=== PATIENT | male | born 1955 | race Caucasian/White ===

== ENCOUNTER 2018-11-15 07:50 | Emergency (ER) | payer OTHER, SELFPAY ==
[2018-11-15 07:56] VITALS: BP 180/99; PULSE 78; RESP 12; TEMP 36.5; O2SAT 95
[2018-11-15 08:28] LABS: Abs Immature Grans 0.05 k/cumm (0.0-0.09); Absolute Basophil Count 0.03 k/cumm (0.0-0.2); Absolute Eosinophil Count 0.19 k/cumm (0.0-0.7); Absolute Lymphocyte Count 3.15 k/cumm (1.2-3.4); Absolute Monocyte Count 0.61 k/cumm (0.11-0.7); Absolute Neutrophil Count 3.75 k/cumm (1.2-6.7); Basophils % 0.4; Eosinophils % 2.4; HCT 46.6 % (40.0-50.0); Immature Grans % 0.6; Lymphocytes % 40.5; Mean Corp. HGB Concentration 34.3 g/dL (32.0-36.0); Mean Corpuscular Hemoglobin 31.3 pg (27.0-33.0); Mean Corpuscular Volume 91.2 fL (80-95); Mean Platelet Volume 10.5 fL (8.0-11.0); Monocytes % 7.8; Neutrophils % 48.3; Platelet Count 183 x1000/uL (130-400); RBC 5.11 m/cumm (4.50-6.00); RBC Distribution Width 14.6 % (11.8-14.1); White Blood Cell Count 7.78 k/cumm (4.4-10.8)
--- NOTE | 2018-11-15 08:38 | ED.GENADUL_ITS ---
Discharge Plan Disposition Patient Disposition: HOME Condition: Good Discharge Details Chief Complaint: GenMedical Clinical Impression: Pneumonia Primary Care Provider: None,None ED Provider: Rush Shearer Home Meds and New Rx's Prescriptions: New albuterol sulfate 90 mcg/actuation HFA aerosol inhaler 1 puff IH Q6H PRN (Reason: bronchospasm) Qty: 8 RF: 0 No Action aspirin [Aspirin Low Dose] 81 mg Tablet,Delayed Release (Dr/Ec) 81 mg PO DAILY RF: 0 simvastatin 40 mg Tablet 40 mg PO QPM RF: 0 divalproex 500 mg Tablet Extended Release 24 Hr 1,500 mg PO DAILY RF: 0 hydrochlorothiazide 25 mg Tablet 25 mg PO DAILY RF: 0 Prilosec OTC 20 mg Tablet,Delayed Release (Dr/Ec) 20 mg PO DAILY RF: 0 Multi-Day Plus Minerals 18 mg iron-400 mcg-25 mcg Tablet 1 tab PO DAILY RF: 0 Discharge Instructions Instructions: Pneumonia (ED) Additional Instructions: Please continue to take your antibiotic as directed. Please use the inhaler as needed for your shortness of breath. He will be contacted for scheduling for a stress test, please do not miss this appointment. Please follow-up with your primary care provider as soon as possible for reassessment. If you notice any worsening of your symptoms, or any new symptoms such as vomiting, diarrhea, fever, chills, shortness of breath, chest pain, numbness, weakness, or fainting , please return immediately to the emergency department for reevaluation. Please follow up with your primary care provider as soon as possible for reassessment and reevaluation. As always, it was a pleasure participating in your medical care today. Medical Decision Making This is a very pleasant 63-year-old male who presents for evaluation of shortness of breath over the last 1-2 months associated with a cough. He has had no associated chest pain, chest pressure numbness, or other concerning cardiac symptoms. The patient was seen at an urgent care yesterday where a chest x-ray was performed and per the radiology read conclusion: Findings may represent bibasilar bronchopneumonia, with bronchial wall thickening with surrounding airspace haziness in the lung bases visualized on the lateral view. He was started on doxycycline, and discharged home with PCP follow-up. EKG was performed there, and there were some T wave abnormalities. No signs of STEMI at that time. Because of this and due to an inability to closely follow-up with his PCP this week secondary to the holiday season the patient did come to the ER today to be evaluated for any cardiac problem. He denies any changes in his symptoms, but because of what was told to them yesterday he wanted to make sure things were fine. The patient has no red flags concerning for pulmonary embolism. His vital signs are very stable and reassuring. He did have improvement of his shortness of breath yesterday when he was given a breathing treatment, and his signs and symptoms appear to be clinically consistent with community-acquired pneumonia being appropriately treated with doxycycline. His symptoms appear clinically inconsistent with a cardiac etiology. Respecting the patient's concern we will get blood work to make sure the troponin is negative. I feel that this will most likely be the case. His EKG does show some T wave abnormalities, however upon review of the EKG performed at the urgent care there appears to be no changes. I do feel that the patient would benefit from an inhaler at home, and we will prescribe this. He we will recommend he continue the doxycycline, will encourage close follow-up with his PCP. Most recent stress test was greater than 5 years ago but within the last 10 years per the patient. We will set him up for an outpatient exercise stress test as well. EKG 8:02 Rate 73, sinus rhythm, intervals normal, nonspecific T wave abnormalities in V3 through V6. Q wave is present in lead III. Inverted T wave in aVL. Review of EKG from 11/14/18 demonstrates the same findings, with no acute changes. EKG appears stable and unchanged. No evidence of STEMI, ST elevations or depressions, or other acute abnormalities. 8:57 AM Patient's laboratory workup has returned, troponin is negative, no symptoms for greater than 1-2 months I do not feel that a repeat troponin is indicated especially in light of no change in his symptomatology and a clinical history inconsistent with a cardiac etiology. The remainder of the patient's laboratory workup is benign. Because of the patient's age and risk factors, I do think that it is reasonable for continued medical maintenance for an outpatient stress test. Because of the current holiday season we will set this up for the patient. I feel that the patient's symptoms are due secondary to a radiographically proven pneumonia, and are consistent with this. I will give him an inhaler for home use. I discussed red flags and low threshold for which to return. I have extensively reviewed the treatment plan and discharge instructions with the patient and their family. I have addressed all patient concerns at this time. The patient and family was made aware of what symptoms to monitor for that would warrant a return to the emergency department. Discussed the plan with the patient and family, they demonstrate verbal understanding and agreement with our assessment and plan at this time. HPI General Date/Time Provider Initiated Documentation: 11/15/18 08:17 . HPI Narrative: This is a 63-year-old male with a past medical history of diabetes hypertension high cholesterol and seizures diagnosed at the age of 41 for which he takes Depakote. He presents today for evaluation of some mild shortness of breath. Patient states that over the last 1-2 months he has had a cough with very mild shortness of breath only with exertion. He denies any associated chest pain, arm, neck, or shoulder pain. He denies any chest pressure or chest heaviness. He did have a productive cough when the symptoms started over a month ago, however the productive component has resolved and he now has what he describes as a deep, regular, nonproductive cough. He denies any systemic symptoms of fever or chills. He does admit to some mild fatigue. The patient was given an inhaler treatment yesterday and did state that this notably improved his shortness of breath. The patient did go to [facility] yesterday, where he was evaluated at an urgent care. Chest x-ray was performed and findings were consistent with bronchopulmonary pneumonia. The patient presents today out of concern for these EKG abnormalities, wanted to make sure his heart was fine. He denies any new symptoms of chest pain, worsening shortness of breath, arm neck or shoulder pain. He denies any exertional chest discomfort. Denies PE risk factors such as recent long car rides, immobilization, recent surgery, prior history of DVT or PE, family history of PE or DVT, morbid obesity, exogenous estrogen and smoking, hemoptysis, history of cancer. He denies any tearing sensation in his chest. He states that because of the holiday season he wanted to be able to get checked out quickly because he knew he would not be able to get into see his family doctor quickly. Patient denies any other complaints at this time. Past surgical history is positive for left shoulder surgery and cholecystectomy. He denies any tobacco use, IV or illicit drug use. He is adopted, but denies any pertinent family Related Data Home Medications Medication Instructions Recorded Confirmed albuterol sulfate 1 puff IH Q6H PRN #8 gm 11/15/18 aspirin [Aspirin Low Dose] 81 mg PO DAILY 11/15/18 11/15/18 divalproex 1,500 mg PO DAILY 11/15/18 11/15/18 hydrochlorothiazide 25 mg PO DAILY 11/15/18 11/15/18 zesivmhgelav-yyi-naqa-FA-vit K 1 tab PO DAILY 11/15/18 11/15/18 [Multi-Day Plus Minerals] omeprazole magnesium [Prilosec OTC] 20 mg PO DAILY 11/15/18 11/15/18 simvastatin 40 mg PO QPM 11/15/18 11/15/18 Previous Rx's Medication Instructions Recorded albuterol sulfate 1 puff IH Q6H PRN #8 gm 11/15/18 Allergies Allergy/AdvReac Type Severity Reaction Status Date / Time carbamazepine [From Tegretol] Allergy Unverified 11/15/18 08:46 General Stated Complaint: GenMedical JOANNA: 4 Review of Systems Review of Systems All systems reviewed & are unremarkable except as noted in HPI and below PFSH Social History Smoking/Tobacco Use Status: Never Exam Narrative Exam Narrative: 1.Const: Well-nourished, Well-developed, appearing stated age 2.Eyes: PERRL, no conjunctival injection, and symmetrical lids. 3.ENT: Atraumatic external nose and ears. Moist MM. Neck: Symmetric, trachea midline, No thyromegaly. 4.CVS: +S1/S2, No murmurs or gallops. Peripheral pulses 2+ and equal in all extremities. Brisk capillary refill in all extremities. Radial pulses are equal and symmetric bilaterally. 5.RESP: Unlabored respiratory effort. Clear to auscultation bilaterally. No wheezes rales or rhonchi, no reproducible chest wall tenderness 6.GI: Soft, Nontender/Nondistended, No hepatosplenomegaly. No guarding or rebound. 7.MSK: Normocephalic/Atraumatic, Extremities w/o deformity or ttp No cyanosis or clubbing, Normal movement of all extremities 8.Skin: Warm, Dry. No rashes or lesions. 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 Sensation grossly intact, no focal neurologic deficits. 10.Psych: (AAO) x3. Appropriate mood and affect Course Vital Signs Temperature 36.5 C 11/15/18 07:56 Pulse 78 11/15/18 07:56 Respiratory Rate 12 11/15/18 07:56 Blood Pressure 180/99 H 11/15/18 07:56 Pulse Oximetry 95 11/15/18 07:56 Temperature 36.5 C 11/15/18 07:56 Temperature Source Temporal Artery Scan 11/15/18 07:56 Pulse 78 11/15/18 07:56 Respiratory Rate 12 11/15/18 07:56 Respiratory Effort Non-Labored 11/15/18 08:07 Blood Pressure 180/99 H 11/15/18 07:56 Blood Pressure Position Sitting 11/15/18 07:56 Pulse Oximetry 95 11/15/18 07:56 Oxygen Delivery Method Room Air 11/15/18 07:56 Oxygen Flow Rate 0 11/15/18 07:56 Pain Level 0 11/15/18 07:56
[2018-11-15 08:44] LABS: ALT 32 U/L (12-78); AST 16 U/L (15-37); Albumin 3.6 g/dL (3.4-5.0); Alkaline Phosphatase 61 U/L (46-116); Anion Gap 9.1 mmol/L (3-11); BUN 19 mg/dL (7-18); Bilirubin, Total 0.5 mg/dL (0.2-1.0); CO2 28.9 mmol/L (21.0-32.0); CREATININE 0.92 mg/dL (0.70-1.30); Chloride 103 mmol/L (98-107); Glucose 130 mg/dL (70-100); Potassium 3.7 mmol/L (3.5-5.1); Sodium 141 mmol/L (136-145); Total Protein 7.3 g/dL (6.4-8.2)
[2018-11-15 08:46] VITALS: RESP 16
[2018-11-15 08:55] LABS: Calcium 9.2 mg/dL (8.5-10.1); Troponin I < 0.02 ng/mL (0.00-0.06)
[2018-11-15 09:21] VITALS: BP 140/92; PULSE 68; RESP 14; O2SAT 94
== END 2018-11-15 09:20 | disposition home or self-care (01) ==
PROVIDERS: Emergency Provider Student in an Organized Health Care Education/Training Program
DX: J18.9 Pneumonia, unspecified organism (principal); E11.9 Type 2 diabetes mellitus without complications; I10 Essential (primary) hypertension
CPT/HCPCS: 36415; 80053; 93005; 99284; 84484; 85025; 93010; 99285

== ENCOUNTER → 2018-11-26 00:06 | Outpatient (CLI) | payer OTHER, SELFPAY ==
--- NOTE | 2018-11-26 08:30 | ETT_ITS ---
*[facility]* *[facility]* [address] [place] [address] Stress Electrocardiography Scotty protocol Date of study: 11/26/2018 *PATIENT PRESENTATION* Height: 175.3cm (69in) Blood Pressure: Weight: 118.2kg (260lb) BSA: 2.45m^2 Referring physician: Rush Shearer Ordering physician: Rush Shearer Impressions: Negative stress test after maximal exercise. Summary: 1. Stress ECG conclusions: The stress ECG is negative. Calderon treadmill score: 9. This score predicts a low risk of cardiac events. 2. Stress: The target heart rate was achieved. The heart rate response to stress is normal. There is resting hypertension with an appropriate response to stress. The patient experienced no chest pain during stress. Exercise capacity is good (10 METS). 3. Baseline ECG: Nonspecific ST changes. Indication: R06.02, Appropriate Use Criteria: A (Appropriate). History: REASON FOR VISIT: PT WAS SEEN IN THE ED ON 11/15/18 AND DIAGNOSED WITH PNEUMONIA. EKG DONE AT THIS VISIT SHOWED DIFFUSE NONSPECIFIC T-ABNORMALITY. INVERTED T-WAVES NOTED IN LEAD V4, V5 & V6. PT DENIES ANY ISSUES WITH CHEST PAIN OR PRESSURE. HE REPORTS SHORTNESS OF BREATH RELATED TO RECENT PNEUMONIA. Risk factors: PT IS ADOPTED AND UNAWARE OF ANY FAMILY MEDICAL HISTORY. PT HAS NO CHOLESTEROL RESULTS ON FILE. Hypertension. Diabetes mellitus. Obesity. Dyslipidemia. ALLERGIES: CARBAMAZEPINE. MEDICATIONS: SIMVASTATIN 40 MG Q PM. OMEPRAZOLE 20 MG DAILY. MULTIVITAMIN W/ MINERALS 1 TAB DAILY. HYDROCHLOROTHIAZIDE 25 MG DAILY. DIVALPROEX 1500 MG DAILY. ASPIRIN 81 MG DAILY. ALBUTEROL SULFATE 1 PUFF Q 6HRS PRN. ALLERGIES: MEDICATIONS: ALBUTEROL SULFATE 1 INH Q 6 HRS PRN. ASPIRIN 81 MG DAILY. DIVALPROEX 1.500 MG DAILY. HYDROCHLORTHIAZIDE 25 MG DAILY. MULTI-DAY PLUS MINERALS 1 TAB DAILY. PROLESEC OTC 20 MG DAILY. SIMVASTATIN 40 MG DAILY. Protocol: Scotty protocol. Baseline ECG: SINUS RHYTHM. HR 67 BPM. FLATTENED T-WAVES IN LEADS V4, V5 & V6. Nonspecific ST changes. Stress protocol: + +---+ + + !Stage !HR !BP (mmHg) !Symptoms ! + +---+ + + !Baseline supine !67 !162/98 (119)! ! + +---+ + + !Baseline standing !77 !160/96 (117)! ! + +---+ + + !Stage I; 1.7mph, !103!168/98 (121)! ! !10degrees; 3 min ! ! ! ! + +---+ + + !Stage II; 2.5mph, !121!180/104 ! ! !12degrees; 3 min ! !(129) ! ! + +---+ + + !Stage III; 3.4mph, !133!182/110 ! ! !14degrees; 3 min ! !(134) ! ! + +---+ + + !Immediate post stress !---! !7 out of 10 chest ! ! ! ! !discomfort ! + +---+ + + !Recovery; 1 min !133!196/98 (131)!Subsiding ! + +---+ + + !Recovery; 3 min !---! !2 out of 10 chest ! ! ! ! !discomfort ! + +---+ + + !Recovery; 6 min !96 !188/104 !Resolved ! ! ! !(132) ! ! + +---+ + + !Recovery; 9 min !91 !168/104 ! ! ! ! !(125) ! ! + +---+ + + !Recovery; 12 min !90 !160/96 (117)! ! + +---+ + + * Stress results: Maximal heart rate during stress was 138bpm (87% of maximal predicted heart rate). The maximal predicted heart rate was 158bpm. The target heart rate was achieved. The heart rate response to stress is normal. There is resting hypertension with an appropriate response to stress. The rate-pressure product for the peak heart rate and blood pressure was 58280ta Hg/min. The patient experienced no chest pain during stress. Exercise capacity is good (10 METS). Stress ECG: TREADMILL PORTION OF STRESS TEST ENDED IN 9 MINUTES & 1 SECOND BECAUSE OF FATIGUE HYPERTENSIVE BLOOD PRESSURE AT BASELINE PRIOR TO START OF TEST. NORMAL HEART RATE AND BLOOD PRESSURE RESPONSE TO EXERCISE MAX HR = 138 % OF TARGET = 87 OCCASIONAL PVCs APPROXIMATE METS ACHIEVED = 10.16 7 TO 8 OUT OF 10 BRIEF SHARP EPISODE OF SUDDEN CHEST PAIN UPON IMMEDIATE RECOVERY LASTING ONLY FEW SECONDS. 2 TO 3 OUT OF 10 CHEST ACHE WITH SOME BELCHING DURING RECOVERY PERIOD SUBSIDED BY 5 MINUTES RECOVERY. NO SIGNIFICAN ST SEGMENT CHANGES FUNCTIONAL CAPACITY FOR EXERCISE. The stress ECG is negative. Calderon treadmill score: 9. This score predicts a low risk of cardiac events. Study data: Kyle Kiran MD supervised and was readily available during the procedure. This study was interpreted by [facility]. Study status: Routine. Consent: The risks, benefits, and alternatives to the procedure were explained to the patient and informed consent was obtained. Procedure: Initial setup. A baseline ECG was recorded. Surface ECG leads and manual cuff blood pressure measurements were monitored. Heart sounds: Normal. Lung sounds: Normal. Treadmill exercise testing was performed using the Scotty protocol. Study completion: The patient tolerated the procedure well and was discharged from the lab. Discharge: The patient left the laboratory in stable condition. Birthdate: Patient birthdate: 1955. Sex: Gender: male. Study date: Study date: 11/26/2018. Study time: 08:30 AM. Signature Documentation: The Stress ECG portion of this study was interpreted by Kyle Kiran MD. Electronically signed by Kyle Kiran 11/26/2018 10:30
== END ==
PROVIDERS: Visit Provider Student in an Organized Health Care Education/Training Program
DX: R06.02 Shortness of breath (principal); R94.31 Abnormal electrocardiogram [ECG] [EKG]; I10 Essential (primary) hypertension; E11.9 Type 2 diabetes mellitus without complications; E78.5 Hyperlipidemia, unspecified; E66.9 Obesity, unspecified
CPT/HCPCS: 93017

== ENCOUNTER 2018-11-29 12:57 | Emergency (ER) | payer OTHER, SELFPAY ==
[2018-11-29 13:02] VITALS: PULSE 84; RESP 12; TEMP 36.3; O2SAT 96
--- NOTE | 2018-11-29 13:29 | DI.RAD_ITS ---
SYMPTOM/DIAGNOSIS: COUGH, CRACKLES RT LUNG LIVE, ? PNEUMONIA PA AND LATERAL CHEST: No priors. Heart size and pulmonary vasculature are within normal limits. The lungs are clear. No effusions or pneumothoraces are identified. Note is made of a left shoulder prosthesis. IMPRESSION: No acute pulmonary process.
--- NOTE | 2018-11-29 13:46 | ED.GENADUL_ITS ---
Discharge Plan Disposition Patient Disposition: HOME Condition: Good Discharge Details Chief Complaint: RespSymp Clinical Impression: Pneumonia Primary Care Provider: Unknown,Unknown ED Provider: Rush Shearer Home Meds and New Rx's Prescriptions: New levofloxacin 750 mg tablet 750 mg PO DAILY Qty: 7 RF: 0 albuterol sulfate 90 mcg/actuation HFA aerosol inhaler 1 puff IH Q6H PRN (Reason: shortness of breath or wheezing) Qty: 6.7 RF: 0 No Action aspirin [Aspirin Low Dose] 81 mg Tablet,Delayed Release (Dr/Ec) 81 mg PO DAILY RF: 0 simvastatin 40 mg Tablet 40 mg PO QPM RF: 0 divalproex 500 mg Tablet Extended Release 24 Hr 1,500 mg PO DAILY RF: 0 hydrochlorothiazide 25 mg Tablet 25 mg PO DAILY RF: 0 Prilosec OTC 20 mg Tablet,Delayed Release (Dr/Ec) 20 mg PO DAILY RF: 0 Multi-Day Plus Minerals 18 mg iron-400 mcg-25 mcg Tablet 1 tab PO DAILY RF: 0 albuterol sulfate 90 mcg/actuation HFA aerosol inhaler 1 puff IH Q6H PRN (Reason: bronchospasm) Qty: 8 RF: 0 Discharge Instructions Instructions: Pneumonia (ED) Additional Instructions: Please take the antibiotic and inhaler as directed. If you notice any pain in your joints, tendons or ligaments, please stop taking the antibiotic immediately and did not perform any significant stressful musculoskeletal activity. If you notice any worsening of your symptoms, or any new symptoms such as vomiting, diarrhea, fever, chills, shortness of breath, chest pain, numbness, weakness, or fainting , please return immediately to the emergency department for reevaluation. Please follow up with your primary care provider as soon as possible for reassessment and reevaluation. As always, it was a pleasure participating in your medical care today. Medical Decision Making This is a 63-year-old male who presents today for evaluation of persistent cough and mild fatigue. Patient was treated as an outpatient with only 5 days of doxycycline. He had bilateral pneumonia at that time. He was seen and evaluated here shortly after he was seen at the urgent care clinic. He had some initial T wave abnormalities at the urgent care, troponin EKG here were benign, he was set up for an outpatient exercise stress test which was negative. Since then the patient has not been taking the albuterol as prescribed, but did complete his doxycycline. He presents today for persisting cough and fatigue. He states that normally he needs 2 rounds of antibiotics to resolve his pneumonia that he has had in the past. He denies any systemic symptoms of fever or chills. He does have evidence of crackles in his right lung jacobs. I do feel that the patient is still suffering from clinical pneumonia and needs a prolonged treatment. We will order him a new prescription for albuterol as he states he does not have the old prescription any longer. 2:13 PM Patient's x-ray shows no evidence of severe pneumonia, however with the patient's clinical symptoms of fatigue and productive continued cough, in conjunction with his notable crackles on the right which appear persistent and isolated, I do feel that he would benefit from a prolonged course of antibiotics. We will prescribe Levaquin for treatment of his suspected communit y-acquired pneumonia. I have extensively reviewed the treatment plan and discharge instructions with the patient. I have addressed all patient concerns at this time. The patient was made aware of what symptoms to monitor for that would warrant a return to the emergency department. Discussed the plan with the patient, they demonstrate verbal understanding and agreement with our assessment and plan at this time. COMPARISON: No relevant prior studies available. FINDINGS: Lungs: Unremarkable. No consolidation. Pleural space: Unremarkable. No pleural effusion. No pneumothorax. Heart/Mediastinum: Unremarkable. No cardiomegaly. Bones/joints: Left humeral prosthesis IMPRESSION: No acute process Thank you for allowing us to participate in the care of your patient. Dictated and Authenticated by: Fortunato Marques MD 11/29/ [facility] General Date/Time Provider Initiated Documentation: 11/29/18 13:00 . [facility] Narrative: This is a 63-year-old male with a past medical history of diabetes hypertension high cholesterol and seizures diagnosed at the age of 41 for which he takes Depakote. He presents today for evaluation of some mild shortness of breath and persisting cough as well as mild fatigue. Patient states that over the last 1-2 months he has had a cough with very mild shortness of breath only with exertion. He denies any associated chest pain, arm, neck, or shoulder pain. He denies any chest pressure or chest heaviness. He did have a productive cough when the symptoms started over a month ago, however the productive component has resolved and he now has what he describes as a deep, regular, nonproductive cough. Roughly 1 week ago the patient was seen in [facility] where he was diagnosed with bilateral pneumonia, started on a 5-day course of doxycycline. He had some T wave abnormalities noted on EKG at the time and then came here to the emergency department 24-48 hours later for follow-up with the EKG. EKG and troponins at that time were negative. Patient was scheduled for an outpatient stress test, he did perform this and the results were negative for any signs of ischemia. The patient states that he finished his course of doxycycline but still has a mild persistent cough, very mild fatigue. He states that often I need 2 rounds of antibiotics for the pneumonia to resolve. Patient denies any systemic symptoms of fever, chills, chest pain, arm pain, neck pain or shoulder pain. He denies any vomiting or diarrhea. He denies any history or family history of thyroid disease. He denies any sore throat. On the patient's last visit he was prescribed albuterol but he has not been utilizing this. No other complaints at this time. No other modifying factors. Related Data Home Medications Medication Instructions Recorded Confirmed albuterol sulfate 1 puff IH Q6H PRN #8 gm 11/15/18 11/29/18 aspirin [Aspirin Low Dose] 81 mg PO DAILY 11/15/18 11/29/18 divalproex 1,500 mg PO DAILY 11/15/18 11/29/18 hydrochlorothiazide 25 mg PO DAILY 11/15/18 11/29/18 fdakkaryvrau-zej-mtcy-FA-vit K 1 tab PO DAILY 11/15/18 11/29/18 [Multi-Day Plus Minerals] omeprazole magnesium [Prilosec OTC] 20 mg PO DAILY 11/15/18 11/29/18 simvastatin 40 mg PO QPM 11/15/18 11/29/18 albuterol sulfate 1 puff IH Q6H PRN #6.7 gm 11/29/18 levofloxacin 750 mg PO DAILY #7 tab 11/29/18 Previous Rx's Medication Instructions Recorded albuterol sulfate 1 puff IH Q6H PRN #8 gm 11/15/18 albuterol sulfate 1 puff IH Q6H PRN #6.7 gm 11/29/18 levofloxacin 750 mg PO DAILY #7 tab 11/29/18 Allergies Allergy/AdvReac Type Severity Reaction Status Date / Time carbamazepine [From Tegretol] Allergy Unverified 11/29/18 13:05 General Stated Complaint: RespSymp JOANNA: 4 Review of Systems Review of Systems All systems reviewed & are unremarkable except as noted in HPI and below PFSH Social History Smoking/Tobacco Use Status: Never Exam Narrative Exam Narrative: 1.Const: Well-nourished, Well-developed, appearing stated age 2.Eyes: PERRL, no conjunctival injection, and symmetrical lids. 3.ENT: Atraumatic external nose and ears. Moist MM. Neck: Symmetric, trachea midline, No thyromegaly. 4.CVS: +S1/S2, No murmurs or gallops. Peripheral pulses 2+ and equal in all extremities. Brisk capillary refill in all extremities. 5.RESP: Unlabored respiratory effort. Mild right-sided crackles auscultated on lung exam. No significant wheezes or rhonchi 6.GI: Soft, Nontender/Nondistended, No hepatosplenomegaly. No guarding or rebound. 7.MSK: Normocephalic/Atraumatic, Extremities w/o deformity or ttp No cyanosis or clubbing, Normal movement of all extremities 8.Skin: Warm, Dry. No rashes or lesions. 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 Sensation grossly intact, no focal neurologic deficits. 10.Psych: (AAO) x3. Appropriate mood and affect Course Vital Signs Temperature 36.3 C L 11/29/18 13:02 Pulse 84 11/29/18 13:02 Respiratory Rate 12 11/29/18 13:02 Pulse Oximetry 96 11/29/18 13:02 Temperature 36.3 C L 11/29/18 13:02 Temperature Source Temporal Artery Scan 11/29/18 13:02 Pulse 84 11/29/18 13:02 Respiratory Rate 12 11/29/18 13:02 Respiratory Effort Non-Labored 11/29/18 13:17 Blood Pressure Position Sitting 11/29/18 13:02 Pulse Oximetry 96 11/29/18 13:02 Oxygen Delivery Method Room Air 11/29/18 13:02 Oxygen Flow Rate 0 11/29/18 13:02 Pain Level 0 11/29/18 13:02
--- NOTE | 2018-11-29 14:05 | DI.VRAD_ITS ---
EXAM: XR Chest, 2 Views EXAM DATE/TIME: 11/29/2018 1:30 PM CLINICAL HISTORY: 63 years old, male; Signs and symptoms; Cough; Patient HX: Cough, crackles right lung jacobs, R/O pneumonia. TECHNIQUE: XR of the chest, 2 views. COMPARISON: No relevant prior studies available. FINDINGS: Lungs: Unremarkable. No consolidation. Pleural space: Unremarkable. No pleural effusion. No pneumothorax. Heart/Mediastinum: Unremarkable. No cardiomegaly. Bones/joints: Left humeral prosthesis IMPRESSION: No acute process Dictated and Authenticated by: Fortunato Marques MD. Ordering:ANISHA Beverly MD
[2018-11-29 14:28] VITALS: BP 135/77
== END 2018-11-29 14:29 | disposition home or self-care (01) ==
PROVIDERS: Emergency Provider Student in an Organized Health Care Education/Training Program
DX: J18.9 Pneumonia, unspecified organism (principal)
CPT/HCPCS: 99283; 71046

== ENCOUNTER 2019-11-01 10:05 | Emergency (ER) | payer OTHER, SELFPAY ==
[2019-11-01 10:08] VITALS: BP 147/94; PULSE 86; RESP 14; TEMP 36.4; O2SAT 96
--- NOTE | 2019-11-01 10:36 | DI.RAD_ITS ---
EXAM: XR CHEST 2V PA LATERAL INDICATION: cough, r/o pneumonia. COMPARISON: XR CHEST 2V PA LATERAL from 11/29/2018 TECHNIQUE: 2D digital imaging was performed. FINDINGS: The heart size is normal. The aorta is tortuous. The lungs are clear. No infiltrate or effusion is seen. A left shoulder prosthesis is noted. IMPRESSION: No acute abnormality.
--- NOTE | 2019-11-01 11:04 | DI.VRAD_ITS ---
PROCEDURE INFORMATION: Exam: XR Chest, 2 Views Exam date and time: 11/01/2019 10:36 AM Age: 64 years old Clinical history: Patient HX: R/O pneumonia, cough TECHNIQUE: Imaging protocol: XR of the chest Views: 2 views. COMPARISON: CR XR CHEST 2V PA LATERAL 11/29/2018 1:39 PM FINDINGS: Lungs: Increasing opacities in the left lower lobe may represent atelectasis or pneumonia. Pleural space: Unremarkable. No pleural effusion. No pneumothorax. Heart/Mediastinum: Stable cardiac silhouette Vasculature: Tortuous aorta Bones/joints: Stable left humeral prosthesis IMPRESSION: Increasing opacities in the left lower lobe may represent atelectasis or pneumonia. Dictated and Authenticated by: Fortunato Marques MD. Ordering:SHAR Castro MD
--- NOTE | 2019-11-01 15:43 | ED.GENADUL_ITS ---
Discharge Plan Disposition Patient Disposition: HOME Condition: Good Discharge Details Chief Complaint: RespSymp Clinical Impression: Pneumonia Primary Care Provider: Iraida,Local ED Provider: Gloria Autsin Home Meds and New Rx's Prescriptions: New doxycycline hyclate 100 mg capsule 100 mg PO BID Qty: 14 RF: 0 No Action aspirin [Aspirin Low Dose] 81 mg Tablet,Delayed Release (Dr/Ec) 81 mg PO DAILY RF: 0 simvastatin 40 mg Tablet 40 mg PO QPM RF: 0 divalproex 500 mg Tablet Extended Release 24 Hr 1,500 mg PO DAILY RF: 0 hydrochlorothiazide 25 mg Tablet 25 mg PO DAILY RF: 0 Prilosec OTC 20 mg Tablet,Delayed Release (Dr/Ec) 20 mg PO DAILY RF: 0 Multi-Day Plus Minerals 18 mg iron-400 mcg-25 mcg Tablet 1 tab PO DAILY RF: 0 albuterol sulfate 90 mcg/actuation HFA aerosol inhaler 1 puff IH Q6H PRN (Reason: bronchospasm) Qty: 8 RF: 0 metformin 1,000 mg Tablet 1,000 mg PO BID RF: 0 Discharge Instructions Instructions: Pneumonia (ED) Additional Instructions: Drink plenty of fluids. Increase vitamin C. Rest activities as tolerated. Antibiotic as prescribed. Tylenol for soreness if needed Follow-up promptly with your primary care doctor. You declined any lab evaluation today. Return for any worsening or concerns sooner if needed Discharge Data Discharge Date/Time-TO BE ENTERED AT DEPARTURE: 11/01/19 12:05 Medical Decision Making 64 very pleasant patient who presents for concern of pneumonia. Patient reports 1 week of fatigue associated with nasal congestion, sore throat and coughing. Patient reports minimally productive cough with no significant increase in respiratory effort. Patient does report occasional wheeze. Patient denies abdominal pain, nausea, vomiting. Eating and drink without difficulty. Patient denies chest or back pain. Patient reports several episodes of pneumonia in the last few years. We discussed possible causes or etiologies of frequency of pneumonia patient denies alcoholism, denies drug use, denies smoking. Patient does admit that he has some dental issues has had multiple extractions and does feel occasionally he chokes on food that passes beyond his teeth. Patient does have a plan of care to follow-up with dentist. Patient reports due to finances having difficulty getting teeth repaired Chest x-ray ordered to rule out active pneumonia. Breath sounds are clear. Patient does not appear toxic. Patient offered lab evaluation and declines at this time. Does not feel he requires admission and does not feel systemically ill. Patient's vital signs reviewed he has mild hypertension with no associated tachypnea or tachycardia. Afebrile with an O2 sat of 96. Again on exam he has no increase in respiratory effort. Xray reveals: TECHNIQUE: Imaging protocol: XR of the chest Views: 2 views. COMPARISON: CR XR CHEST 2V PA LATERAL 11/29/2018 1:39 PM FINDINGS: Lungs: Increasing opacities in the left lower lobe may represent atelectasis or pneumonia. Pleural space: Unremarkable. No pleural effusion. No pneumothorax. Heart/Mediastinum: Stable cardiac silhouette Vasculature: Tortuous aorta Bones/joints: Stable left humeral prosthesis IMPRESSION: Increasing opacities in the left lower lobe may represent atelectasis or pneumonia. Chest x-ray reveals possible atelectasis versus pneumonia in the left lower lobe. This was reviewed with patient. I reviewed the images and I do not see a significant focal pneumonia however after discussion with the patient his preference is antibiotic treatment at this time. Has taken multiple antibiotics for pneumonia and feels most comfortable taking doxycycline. Patient encouraged prompt follow-up with his primary care doctor. Prescription for doxycycline for 1 week was prescribed. Patient requesting discharge home. Again does not feel he needs to be admitted to the hospital at this time for pneumonia. Vital signs remained stable. The patient was stable and requested discharge. Prior to discharge, my usual and customary return precautions were reviewed with the patient - this included follow-up instructions and reasons to return to the Emergency Department if conditions worsens, does not improve as expected, or other new concerns arise. HPI General Date/Time Provider Initiated Documentation: 11/01/19 10:21 . HPI Narrative: Is a 64-year-old patient who presents for concern of pneumonia. Patient reports multiple episodes of pneumonia this year. Patient complains of 1 week of nasal congestion, sore throat, cough. Patient reports no significant production to cough. No difficulty breathing or shortness of breath. Patient denies nausea, vomiting or diarrhea. No abdominal complaints. Patient reports increase in fatigue in the last week. Patient denies active chest pain. Patient does report occasional wheezing but again no significant increase in respiratory effort. Denies ear pain. Patient does report a mild headache described as pressure with no associated dizziness. Denies leg swelling. Patient has been eating and drink without difficulty. Related Data Home Medications Medication Instructions Recorded Confirmed albuterol sulfate 1 puff IH Q6H PRN #8 gm 11/15/18 11/01/19 aspirin [Aspirin Low Dose] 81 mg PO DAILY 11/15/18 11/01/19 divalproex 1,500 mg PO DAILY 11/15/18 11/01/19 hydrochlorothiazide 25 mg PO DAILY 11/15/18 11/01/19 [id number]-vit K 1 tab PO DAILY 11/15/18 11/01/19 [Multi-Day Plus Minerals] omeprazole magnesium [Prilosec OTC] 20 mg PO DAILY 11/15/18 11/01/19 simvastatin 40 mg PO QPM 11/15/18 11/01/19 doxycycline hyclate 100 mg PO BID #14 cap 11/01/19 metformin 1,000 mg PO BID 11/01/19 11/01/19 Previous Rx's Medication Instructions Recorded albuterol sulfate 1 puff IH Q6H PRN #8 gm 11/15/18 doxycycline hyclate 100 mg PO BID #14 cap 11/01/19 Allergies Allergy/AdvReac Type Severity Reaction Status Date / Time carbamazepine [From Tegretol] Allergy Unverified 11/01/19 10:11 General Stated Complaint: RespSymp JOANNA: 3 Review of Systems All systems reviewed & are unremarkable except as noted in HPI and below Constitutional Constitutional: Denies chills, Reports fatigue, Denies fever(s) and Reports headache(s) ENT Ears, Nose, Mouth, and Throat: Denies ear discharge, Denies otalgia, Denies facial pain, Reports headache(s), Reports nasal congestion, Denies sinus pain, Denies sinus pressure and Reports sore throat Respiratory Respiratory: Reports cough, Denies pain on inspiration and Denies pain with cough Gastrointestinal Gastrointestinal: Denies abdominal pain, Denies diarrhea, Denies nausea and Denies vomiting Neurologic Neurologic: Reports headache(s) Endocrine Endocrine: Reports fatigue PFSH Social History Smoking/Tobacco Use Status: Never Alcohol Intake: never Drug use: Never Substance use type: does not use Do you feel safe at home: Yes Do you feel safe in your relationship?: Yes Exam Narrative Exam Narrative: CONST: Healthy appearing patient, in no acute distress. Well hydrated. Alert and alert. HENMT: Head nomocephalic, normal to inspection. Atraumatic. Hearing grossly normal. External ear canal no erythema or swelling. TM normal bilaterally. Nose normal to inspection. No rhinnorhea. Normal facial exam. Oral mucosa normal. T ounge normal. Dentition normal. Normal posterior oropharynx. Uvula midline. EYES: General normal appearance. Alignment normal. Eyelids normal. Conjunctiva normal. Sclera normal. PERRL. NECK: Normal visual inspection. FROM. No lymphadenopathy. Trachea midline. No Midline tenderness. CHEST: Normal insepection of the chest. RESP: Normal respiratory effort. Speaking full sentences. No cough. No wheezing. No retractions. Clear to auscaltation. Breath sound equal and present bilaterally. CARDIO: No JVD. Normal PMI. Regular Rate. Regular Rhythm. Normal peripheral pulses. SKIN: Normal. Dry. No rashes. Course Vital Signs Vital signs: Vital Signs Temperature 36.4 C L 11/01/19 10:08 Pulse 86 11/01/19 10:08 Respiratory Rate 14 11/01/19 10:08 Blood Pressure 147/94 H 11/01/19 10:08 Pulse Oximetry 96 11/01/19 10:08 Temperature 36.4 C L 11/01/19 10:08 Temperature Source Temporal Artery Scan 11/01/19 10:08 Pulse 86 11/01/19 10:08 Respiratory Rate 14 11/01/19 10:08 Respiratory Effort Non-Labored 11/01/19 10:15 Blood Pressure 147/94 H 11/01/19 10:08 Blood Pressure Position Sitting 11/01/19 10:08 Pulse Oximetry 96 11/01/19 10:08 Oxygen Delivery Method Room Air 11/01/19 10:08 Oxygen Flow Rate 0 11/01/19 10:08 Pain Level 0 11/01/19 10:08
== END 2019-11-01 12:05 | disposition home or self-care (01) ==
PROVIDERS: Emergency Provider Physician Assistant
DX: J18.9 Pneumonia, unspecified organism (principal); J02.9 Acute pharyngitis, unspecified; R09.81 Nasal congestion; I10 Essential (primary) hypertension
CPT/HCPCS: 99283; 71046

== ENCOUNTER 2020-05-25 20:42 | Emergency (ER) | payer OTHER, SELFPAY ==
[2020-05-25] VITALS (31 sets, daily range): BP systolic 141–180; BP diastolic 81–96; PULSE 82–90; RESP 14–29; TEMP 36.8; O2SAT 95–100
--- NOTE | 2020-05-25 21:12 | ED.GENADUL_ITS ---
Discharge Plan Disposition Patient Disposition: HOME Condition: Good Discharge Details Chief Complaint: CVA/TIA Clinical Impression: Near syncope, Upper back pain on left side Primary Care Provider: Iraida,Local ED Provider: Eliecer Bonner Meds and New Rx's Prescriptions: Continued aspirin [Aspirin Low Dose] 81 mg Tablet,Delayed Release (Dr/Ec) 81 mg PO DAILY RF: 0 simvastatin 40 mg Tablet 40 mg PO QPM RF: 0 divalproex 500 mg Tablet Extended Release 24 Hr 1,500 mg PO DAILY RF: 0 hydrochlorothiazide 25 mg Tablet 25 mg PO DAILY RF: 0 omeprazole magnesium [Prilosec OTC] 20 mg Tablet,Delayed Release (Dr/Ec) 20 mg PO DAILY RF: 0 Multi-Day Plus Minerals 18 mg iron-400 mcg-25 mcg Tablet 1 tab PO DAILY RF: 0 albuterol sulfate 90 mcg/actuation HFA aerosol inhaler 1 puff IH Q6H PRN (Reason: bronchospasm) Qty: 8 RF: 0 metformin 1,000 mg Tablet 1,000 mg PO BID RF: 0 Discharge Instructions Instructions: Near Syncope (ED) Additional Instructions: Laboratory studies, EKG, CT scan are all unremarkable for any acute events. Your vital signs have been good here. At this time would continue current medications and contact primary care for follow-up. Return to ED if you develop new or worsening pain, shortness of breath, neurologic changes, other concerns or problems. Referrals: Primary Care Provider [Outside] Medical Decision Making Patient presenting with near syncope and left upper back pain. Symptoms resolved at this time. Hypertensive but otherwise normal vitals normal room air pulse ox. Normal neurological exam. Do not think given his description of events that this was neurologically mediated in regards to TIA/CVA. If anything would consider dissection or PE though would not expect symptoms to resolve as quickly as they did. Does have risk factors for cardiac disease but this seems quite an unusual presentation for ACS. EKG is unchanged from previous. Will place IV to get laboratory studies as well as to obtain CTA of the chest. Laboratory studies are unremarkable. Glucose a little high and magnesium a little low but no other significant abnormalities. First troponin negative. CTA of the chest shows no pulmonary embolus or dissection. Does have ectatic aorta. Does have some evidence of emphysema and degenerative change of the spine. Second EKG and troponin are fine. Patient has been asymptomatic here. At this point I think he is safe for discharge with follow-up with primary care as outpatient. Return to emergency department for syncope, chest pain, shortness of breath, neurologic change, other concerns. Medical Records Medical records reviewed: Yes I reviewed the patient's medical records. Medical records narrative: Negative stress testing in November 2018. Lab Data Lab results reviewed: Yes I reviewed the patient's lab results. ECG Data Attestation: I personally reviewed and interpreted this ECG (s) as follows: Prior ECG tracings: available for review Interpretation: EKG #1: Sinus rhythm at a rate of 89. Normal intervals and axis. Diffuse nonspecific ST changes which have been present previously. No acute ST changes. EKG #2: Sinus rhythm at 85. Normal interval and axis. Continued diffuse nonspecific ST changes. HPI General Mode of arrival: ambulatory . Date/Time Provider Initiated Documentation: 05/25/20 20:56 . Limitations to Documentation: no limitations . Information obtained by: patient and RN notes reviewed . HPI Narrative: Patient presents to ED with complaint of lightheadedness and left upper back pain. Patient reports that he was eating when he suddenly felt lightheaded like he might pass out. He then developed pain in the left upper back and base of the neck area. He did not actually pass out. Symptoms have resolved. He denies having headache. There was no unilateral numbness or weakness, vision change, vertigo, other neurologic symptoms. He denied having any type of chest pain or pressure. He did not become short of breath. There was no diaphoresis or nausea. He has had no fever or cough. Related Data Home Medications Medication Instructions Recorded Confirmed Multi-Day Plus Minerals 1 tab PO DAILY 11/15/18 05/25/20 albuterol sulfate 1 puff IH Q6H PRN #8 gm 11/15/18 05/25/20 aspirin [Aspirin Low Dose] 81 mg PO DAILY 11/15/18 05/25/20 divalproex 1,500 mg PO DAILY 11/15/18 05/25/20 hydrochlorothiazide 25 mg PO DAILY 11/15/18 05/25/20 omeprazole magnesium [Prilosec OTC] 20 mg PO DAILY 11/15/18 05/25/20 simvastatin 40 mg PO QPM 11/15/18 05/25/20 metformin 1,000 mg PO BID 11/01/19 05/25/20 Previous Rx's Medication Instructions Recorded albuterol sulfate 1 puff IH Q6H PRN #8 gm 11/15/18 Allergies Allergy/AdvReac Type Severity Reaction Status Date / Time carbamazepine [From Tegretol] Allergy Unverified 05/25/20 21:13 General Stated Complaint: CVA/TIA JOANNA: 2 Review of Systems Narrative: As documented in HPI otherwise negative as below. Const: no fever, chills, weakness Resp: no cough, SOB, pleuritic pain CV: no CP, diaphoresis, edema, syncope GI: no abdominal pain, nausea, vomiting, diarrhea Neuro: no headache, numbness, focal weakness, confusion PFSH Medical History Diabetes mellitus (Chronic) HTN (hypertension) (Chronic) Hypercholesterolemia (Chronic) Seizure disorder (Chronic) Surgical History S/P shoulder surgery (Acute) Social History Smoking/Tobacco Use Status: Never Alcohol Intake: never Drug use: Never Substance use type: does not use Do you feel safe at home: Yes Do you feel safe in your relationship?: Yes Exam Narrative Exam Narrative: Vitals: Afebrile. Hypertensive but otherwise normal vitals with normal room air pulse ox. Const: Obese male in NAD. HEENT: NC/AT. Normal facial exam. Eyes: Normal conjunctiva and sclera. Neck: Supple. Trachea midline. No cervical spine tenderness. No trapezial muscle tenderness. Lungs: Normal respiratory effort. Lungs are clear. Cor: RRR without murmur/gallop. Good radial pulses. GI: Soft. NT/ND. No guarding or rebound. Back: No spinal or back tenderness. Neuro: A+O x 3. Normal speech, mentation, gait. Cranial nerves II - XII grossly intact. No gross motor or sensory deficit. Ext: No C/C/E. No calf tenderness. Skin: Warm and dry without rash. Course Vital Signs Vital signs: Vital Signs Temperature 98.2 F 05/25/20 20:56 Pulse 88 05/25/20 20:56 Respiratory Rate 18 05/25/20 20:56 Pulse Oximetry 100 05/25/20 20:56 Temperature 98.2 F 05/25/20 20:56 Temperature Source Tympanic 05/25/20 20:56 Pulse 88 05/25/20 20:56 Respiratory Rate 18 05/25/20 21:03 Respiratory Effort Non-Labored 05/25/20 21:03 Respiratory Depth Normal 05/25/20 21:03 Respiratory Pattern Normal 05/25/20 21:03 Blood Pressure Position Sitting 05/25/20 20:56 Pulse Oximetry 100 05/25/20 20:56 Oxygen Delivery Method Room Air 05/25/20 20:56 Oxygen Flow Rate 0 05/25/20 20:56
--- NOTE | 2020-05-25 21:15 | DI.CT_ITS ---
EXAM: CT CHEST PE CTA CLINICAL HISTORY: near syncope; left scapular pain. TECHNIQUE: Imaging Protocol: Axial CT angiography was performed with multi-slice acquisition and mu lti-planar and/or 3D reconstructions. CONTRAST MATERIAL: Intravenous: Omnipaque 350 Contrast volume:100 mL COMPARISON: CR,XR XR CHEST 2V PA LATERAL from 11/01/2019 FINDINGS: Pulmonary Arteries: No evidence of filling defect to suggest pulmonary emboli. Tracheobronchial tree: Patent where visualized. Mediastinum and Nirmala: No dominant adenopathy or fluid collection. Pulmonary parenchyma: No consolidation or dominant measurable mass. No architectural distortion. Pleura: No effusion or pneumothorax. Heart: The heart is not dilated. Moderate coronary artery calcifications are present. No pericardial effusion or evidence of right heart strain. Aorta: Ectasia of the thoracic aorta. No evidence of dissection. Atherosclerosis. Upper abdomen: Status post cholecystectomy. Bones: Multilevel degenerative changes in the spine. IMPRESSION: No evidence of pulmonary embolism, thoracic aortic dissection or aneurysm. RADIATION DOSE DELIVERED: Total DLP DATA REPOSITORY: All CT scans at this facility are submitted to the National Radiology Data Registry (NRDR) Dose Index Registry (DIR) with the [employer] (A[employer]). RADIATION OPTIMIZATION: All CT scans at this facility use at least one of these dose optimization te chniques: automated exposure control; mA and/or kV adjustment per patient size (includes targeted exa ms where dose is matched to clinical indication); or iterative reconstruction.
[2020-05-25 21:25] LABS: Abs Immature Grans 0.05 k/cumm (0.0-0.09); Absolute Basophil Count 0.02 k/cumm (0.0-0.2); Absolute Eosinophil Count 0.05 k/cumm (0.0-0.7); Absolute Lymphocyte Count 3.41 k/cumm (1.2-3.4); Absolute Monocyte Count 0.82 k/cumm (0.11-0.7); Absolute Neutrophil Count 5.31 k/cumm (1.2-6.7); Basophils % 0.2; Eosinophils % 0.5; HCT 47.1 % (40.0-50.0); Immature Grans % 0.5 %; Lymphocytes % 35.3; Mean Corpuscular Hemoglobin 30.5 pg (27.0-33.0); Mean Corpuscular Volume 89.7 fL (80-95); Mean Platelet Volume 10.8 fL (8.0-11.0); Monocytes % 8.5; Platelet Count 230 x1000/uL (130-400); RBC 5.25 m/cumm (4.50-6.00); RBC Distribution Width 14.3 % (11.8-14.1); White Blood Cell Count 9.66 k/cumm (4.4-10.8)
[2020-05-25 21:43] LABS: ALT 39 U/L (16-63); AST 22 U/L (15-37); Albumin 4.2 g/dL (3.4-5.0); Alkaline Phosphatase 64 U/L (46-116); Anion Gap 9.9 mmol/L (3-11); BUN 16 mg/dL (7-18); Bilirubin, Total 0.6 mg/dL (0.2-1.0); CO2 30.1 mmol/L (21.0-32.0); CREATININE 1.22 mg/dL (0.70-1.30); Calcium 9.1 mg/dL (8.5-10.1); Chloride 99 mmol/L (98-107); Estimated GFR 59.99 (mL/min/1.73m2); Glucose 184 mg/dL (74-106); Magnesium 1.6 mg/dL (1.8-2.4); Potassium 3.6 mmol/L (3.5-5.1); Sodium 139 mmol/L (136-145); Total Protein 7.9 g/dL (6.4-8.2)
[2020-05-25 21:45] LABS: Troponin I < 0.05 ng/mL (<0.06)
[2020-05-25] MEDS: Omnipaque 350 MG/ML 100 ML BTL IJ (22:23)
[2020-05-25] MEDS: Normal Saline - Diluent 50 ML VIAL IV (22:32)
--- NOTE | 2020-05-25 23:42 | DI.VRAD_ITS ---
PROCEDURE INFORMATION: Exam: CT Angiography Chest With Contrast Exam date and time: 05/25/2020 10:31 PM Age: 64 years old Clinical indication: Chest pain; Patient HX: No HX of embolus, or dvt. Sudden onset of syncope with left with left scapular pain. TECHNIQUE: Imaging protocol: Computed tomographic angiography of the chest with intravenous contrast. 3D rendering: MIP and/or 3D reconstructed images were created by the technologist. Radiation optimization: All CT scans at this facility use at least one of these dose optimization techniques: automated exposure control; mA and/or kV adjustment per patient size (includes targeted exams where dose is matched to clinical indication); or iterative reconstruction. Contrast material: OMNIPAQUE 350; Contrast volume: 100 ml; Contrast route: INTRAVENOUS (IV); COMPARISON: CR XR CHEST 2V PA LATERAL 11/01/2019 10:31 AM FINDINGS: Pulmonary arteries: The caliber of the main pulmonary artery is within normal limits. No suspicious filling defect to suggest pulmonary embolism. Aorta: Ectasia of the ascending thoracic aorta measuring up to 3.9 cm in AP diameter. No evidence of dissection. Lungs: The central airways are patent. Centrilobular emphysema. No pulmonary consolidation, contusion, or infarction. Pleural space: Unremarkable. No pneumothorax. No pleural effusion. Heart: Normal heart size without pericardial effusion. Coronary artery calcifications. Lymph nodes: Unremarkable. No enlarged lymph nodes. Bones/joints: Mild multilevel degenerative changes of the spine. No acute osseous findings. Soft tissues: Unremarkable. IMPRESSION: No acute findings. No pulmonary consolidation or evidence of pulmonary embolism. Centrilobular emphysema. Ectasia of the ascending thoracic aorta. Dictated and Authenticated by: Gloria Duarte MD. Ordering:IDALMIS Gonzáles MD
[2020-05-25] MEDS: Normal Saline 1,000 ML 125 ML IV (23:59)
[2020-05-26 01:07] LABS: Troponin I < 0.05 ng/mL (<0.06)
[2020-05-26 01:34] VITALS: BP 141/94; PULSE 83; RESP 16; O2SAT 92
== END 2020-05-26 01:57 | disposition home or self-care (01) ==
PROVIDERS: Emergency Provider Emergency Medicine
DX: R55 Syncope and collapse (principal); M54.6 Pain in thoracic spine; I10 Essential (primary) hypertension; E83.42 Hypomagnesemia; E11.9 Type 2 diabetes mellitus without complications; Z79.84 Long term (current) use of oral hypoglycemic drugs
CPT/HCPCS: 36415; 36416; 71275; 80053; 82962; 93005; 96360; 96361; 99285; 83735; 84484; 85025; 93010; 99284; J3490

== ENCOUNTER 2020-12-15 12:01 | Outpatient (REF) | payer OTHER, SELFPAY ==
[2020-12-16 16:22] LABS: COVID-19 RT-PCR UVMMC Result Negative (Negative)
== END 2020-12-15 12:21 ==
LOC: LBN 12:01
PROVIDERS: Visit Provider Family Medicine
DX: J06.9 Acute upper respiratory infection, unspecified (principal)
CPT/HCPCS: U0003

== ENCOUNTER → 2020-12-15 18:49 | Outpatient (CLI) | payer OTHER, SELFPAY ==
--- NOTE | 2020-12-15 | DI.RAD_ITS ---
EXAM: XR CHEST 2V PA LATERAL CLINICAL HISTORY: CHEST DISCOMFORT, A TYPICAL R07.89 TECHNIQUE: 2D digital imaging was performed. COMPARISON: CR,XR XR CHEST 2V PA LATERAL from 11/01/2019 FINDINGS: MEDIASTINUM: Normal. HEART: Normal. PULMONARY VASCULATURE: Normal. LUNGS: Clear. PLEURAL SPACE: No pleural effusion or pneumothorax. BONE:Within normal limits for the patient's age. Left shoulder replacement. OTHER FINDINGS:Normal. IMPRESSION: No acute pulmonary findings. DATA REPOSITORY: RADIATION DOSE DELIVERED:
== END ==
PROVIDERS: Visit Provider Family Medicine
DX: R07.89 Other chest pain (principal)
CPT/HCPCS: 71046

== ENCOUNTER 2021-02-22 09:47 | Outpatient (REF) | payer OTHER, SELFPAY ==
[2021-02-22 17:00] LABS: VALPROIC ACID 116.7 ug/mL (50-100)
[2021-02-22 17:10] LABS: ALT 34 U/L (16-63); AST 12 U/L (15-37); Albumin 3.6 g/dL (3.4-5.0); Alkaline Phosphatase 59 U/L (46-116); Anion Gap 6.1 mmol/L (3-11); BUN 17 mg/dL (7-18); Bilirubin, Total 0.4 mg/dL (0.2-1.0); CO2 28.9 mmol/L (21.0-32.0); CREATININE 1.1 mg/dL (0.70-1.30); Calcium 8.9 mg/dL (8.5-10.1); Chloride 104 mmol/L (98-107); Glucose 160 mg/dL (74-106); LDL CHOLESTEROL 77 mg/dL (<100); Potassium 3.8 mmol/L (3.5-5.1); Sodium 139 mmol/L (136-145); TSH (W/Ref FT4) 3.99 uIU/mL (0.36-3.74); Total Protein 6.8 g/dL (6.4-8.2)
[2021-02-22 17:44] LABS: FREE T4 0.96 ng/dL (0.76-1.46)
[2021-02-22 18:18] LABS: COMMENT (LAB VIEW ONLY) 122.49 mg/dL; Microalb ug/mg Crea 6.6 ug/mg Cr
== END 2021-02-22 09:48 | disposition home or self-care (01) ==
LOC: NCHCN 09:47
PROVIDERS: Visit Provider Physician Assistant
DX: I10 Essential (primary) hypertension (principal); E11.9 Type 2 diabetes mellitus without complications; R56.9 Unspecified convulsions; Z51.81 Encounter for therapeutic drug level monitoring
CPT/HCPCS: 80053; 83721; 80164; 82043; 82570; 84439; 84443

== ENCOUNTER 2021-09-06 16:59 | Outpatient (REF) | payer OTHER, SELFPAY ==
[2021-09-08 21:44] LABS: COVID-19 RT-PCR UVMMC Result Negative (Negative)
== END 2021-09-06 17:00 | disposition home or self-care (01) ==
LOC: NCHCN 16:59
PROVIDERS: Visit Provider Physician Assistant
DX: Z20.822 Contact with and (suspected) exposure to COVID-19 (principal)
CPT/HCPCS: U0003

== ENCOUNTER 2021-10-26 22:13 | Emergency (ER) | payer OTHER, SELFPAY ==
[2021-10-26] VITALS (10 sets, daily range): BP systolic 133–169; BP diastolic 90–108; PULSE 83–99; RESP 16; TEMP 36.9; O2SAT 93–97
--- NOTE | 2021-10-26 22:24 | ED.GENADUL_ITS ---
Discharge Plan Disposition Patient Disposition: HOME Condition: Good Discharge Details Clinical Impression: Malaise and fatigue, Hypertension Primary Care Provider: [place],Local ED Provider: Eliecer Bonner Meds and New Rx's Prescriptions: Continued aspirin [Aspirin Low Dose] 81 mg Tablet,Delayed Release (Dr/Ec) 81 mg PO DAILY RF: 0 simvastatin 40 mg Tablet 40 mg PO QPM RF: 0 divalproex 500 mg Tablet Extended Release 24 Hr 1,500 mg PO DAILY RF: 0 hydrochlorothiazide 25 mg Tablet 25 mg PO DAILY RF: 0 omeprazole magnesium [Prilosec OTC] 20 mg Tablet,Delayed Release (Dr/Ec) 20 mg PO DAILY RF: 0 Multi-Day Plus Minerals 18 mg iron-400 mcg-25 mcg Tablet 1 tab PO DAILY RF: 0 albuterol sulfate 90 mcg/actuation HFA aerosol inhaler 1 puff IH Q6H PRN (Reason: bronchospasm) Qty: 8 RF: 0 metformin 1,000 mg Tablet 1,000 mg PO BID RF: 0 amlodipine 5 mg tablet 5 mg PO DAILY RF: 0 Invokana 100 mg Tablet 100 mg PO DAILY RF: 0 Discharge Instructions Additional Instructions: Quarantine at home until negative Covid test returned. Check blood pressures at home once or twice a day for the next week and record. If persistently elevated follow-up with primary care for possible dosage adjustment of your blood pressure medication. Return to ED if you develop neurologic change, severe headache, chest pain, shortness of breath, other concerns. Referrals: [facility] [Provider Group] Medical Decision Making Patient presenting with generalized complaints for the last couple of days. Initially stating he is concerned his blood pressure has been high. Has not taken at home. Has not missed any doses of medications. Has no headache, chest pain, shortness of breath, neurologic changes. Has no real URI type symptoms but does endorse a slight cough, malaise and fatigue. He is supposed to be going to visit family member and half-way tomorrow. Patient told to avoid half-way until negative Covid test which we have obtained as a send out here. EKG was obtained which shows sinus rhythm with right bundle branch block which is new compared to 2020. There is no ischemic changes. Initial blood pressure was elevated but he was observed over time and it came down on its own. Fingerstick was checked and fine. Patient will be discharged to quarantine until negative Covid test. Monitor blood pressures at home and record once or twice a day. If persistently elevated may need dosing adjustment by primary care. Return to ED for neurologic change, chest pain, shortness of breath, other concerns. HPI General Mode of arrival: ambulatory . Date/Time Provider Initiated Documentation: 10/26/21 22:24 . Limitations to Documentation: no limitations . Information obtained by: patient and RN notes reviewed . HPI Narrative: Patient presents to ED with intermittent head pressure, malaise, slight cough. Concerned that maybe his blood pressure has been running high though he is not taking it at home. Denies headache, vision change, speech problem, confusion, weakness, numbness, gait disturbance, chest pain, shortness of breath. He denies any fever, runny nose or congestion, sore throat, vomiting or diarrhea. He is fully vaccinated including his booster. Has been no missed medications and no changes to medication other than the addition of Invokana a month ago. Related Data Home Medications Medication Instructions Recorded Confirmed Multi-Day Plus Minerals 1 tab PO DAILY 11/15/18 10/26/21 albuterol sulfate 1 puff IH Q6H PRN #8 gm 11/15/18 10/26/21 aspirin [Aspirin Low Dose] 81 mg PO DAILY 11/15/18 10/26/21 divalproex 1,500 mg PO DAILY 11/15/18 10/26/21 hydrochlorothiazide 25 mg PO DAILY 11/15/18 10/26/21 omeprazole magnesium [Prilosec OTC] 20 mg PO DAILY 11/15/18 10/26/21 simvastatin 40 mg PO QPM 11/15/18 10/26/21 metformin 1,000 mg PO BID 11/01/19 10/26/21 Invokana 100 mg PO DAILY 10/26/21 10/26/21 amlodipine 5 mg PO DAILY 10/26/21 10/26/21 Previous Rx's Medication Instructions Recorded albuterol sulfate 1 puff IH Q6H PRN #8 gm 11/15/18 Allergies Allergy/AdvReac Type Severity Reaction Status Date / Time carbamazepine [From Tegretol] Allergy Unverified 10/26/21 22:26 General JOANNA: 2 Review of Systems Narrative: As documented in HPI otherwise negative as below. Const: no fever, chills, weakness Resp: no cough, SOB, pleuritic pain CV: no CP, diaphoresis, edema, syncope GI: no abdominal pain, nausea, vomiting, diarrhea Neuro: no headache, numbness, focal weakness, confusion PFSH Medical History Diabetes mellitus HTN (hypertension) Hypercholesterolemia Seizure disorder Surgical History S/P shoulder surgery Social History Smoking/Tobacco Use Status: Never Smoking risk assessment performed?: Yes Alcohol Intake: never Drug use: Never Substance use type: does not use Do you feel safe at home: Yes Do you feel safe in your relationship?: Yes Exam Narrative Exam Narrative: Const: WDWN male in NAD. HEENT: NC/AT. Normal facial exam. Eyes: PERRL and EOMI. Normal conjunctiva and sclera. Neck: Supple. Trachea midline. Lungs: Normal respiratory effort. Lungs are clear. Cor: RRR without murmur/gallop. Good radial pulses. Neuro: A+O x 3. Normal speech, mentation, gait. Cranial nerves II - XII grossly intact. No gross motor or sensory deficit. Ext: No C/C/E. Skin: Warm and dry without rash.
--- NOTE | 2021-10-26 22:30 | RT.EKG_ITS ---
APPROVED REPORT Exam: Resting ECG Reason for Exam: chest pain Patient Location: E HR:92 bpm ECG Measurements Heart Rate 92 AXIS GA 143 P 43 QRSd 138 QRS 16 QT 379 T -2 QTc 469 Conclusion Sinus rhythm...normal P axis, V-rate 60- 99 Right bundle branch block...QRSd>120, terminal axis(90,270) Inferior infarct, age indeterminate...Q>35mS, T neg, II III aVF RBBB new compared to previous. No acute ischemic changes.
[2021-10-28 16:52] LABS: COVID-19 RT-PCR UVMMC Result Negative (Negative)
--- NOTE | 2021-10-29 12:32 | NUR.NOTE ---
called patient with Covid negative results
== END 2021-10-26 23:38 | disposition home or self-care (01) ==
PROVIDERS: Emergency Provider Emergency Medicine
DX: R53.81 Other malaise (principal); Z20.822 Contact with and (suspected) exposure to COVID-19; R53.83 Other fatigue; I10 Essential (primary) hypertension; R07.9 Chest pain, unspecified
CPT/HCPCS: 93005; 99283; U0003; U0005; 93010

== ENCOUNTER 2022-03-22 19:06 | Outpatient (REF) | payer OTHER, SELFPAY ==
[2022-03-24 10:32] LABS: COVID-19 RT-PCR UVMMC Result Positive (Negative)
== END 2022-03-22 19:07 | disposition home or self-care (01) ==
LOC: LBN 19:06
PROVIDERS: Visit Provider Physician Assistant Medical
DX: Z20.822 Contact with and (suspected) exposure to COVID-19 (principal); J06.9 Acute upper respiratory infection, unspecified
CPT/HCPCS: U0003; U0005

== ENCOUNTER 2022-03-24 15:36 | Emergency (ER) | payer OTHER, SELFPAY ==
[2022-03-24] VITALS (13 sets, daily range): BP systolic 127–160; BP diastolic 85–99; PULSE 67–88; RESP 12–17; TEMP 36.5; O2SAT 94–97
--- NOTE | 2022-03-24 17:14 | W.ED.GENAD ---
Discharge Plan Disposition Patient Disposition: HOME Condition: Stable Discharge Details Clinical Impression: COVID-19 Primary Care Provider: Rebeca Garcia ED Provider: Callie Gordillo Home Meds and New Rx's Prescriptions: Continued aspirin [Aspirin Low Dose] 81 mg Tablet,Delayed Release (Dr/Ec) 81 mg PO DAILY 0RF simvastatin 40 mg Tablet 40 mg PO QPM 0RF divalproex 500 mg Tablet Extended Release 24 Hr 1,500 mg PO DAILY 0RF omeprazole magnesium [Prilosec OTC] 20 mg Tablet,Delayed Release (Dr/Ec) 20 mg PO DAILY 0RF Multi-Day Plus Minerals 18 mg iron-400 mcg-25 mcg Tablet 1 tab PO DAILY 0RF albuterol sulfate 90 mcg/actuation HFA aerosol inhaler 1 puff IH Q6H PRN (Reason: bronchospasm) Qty: 8 0RF metformin 1,000 mg Tablet 500 mg PO BID 0RF amlodipine 5 mg tablet 5 mg PO DAILY 0RF Label Comments: TAKE 1 TABLET BY MOUTH EVERY DAY Invokana 100 mg Tablet 100 mg PO DAILY 0RF Discharge Instructions Additional Instructions: Please follow-up with your primary care physician and return should you develop any signs or symptoms of allergic reaction including skin rash, shortness of breath, wheezing, difficulty swallowing Continue to isolate while you have symptoms Please return earlier should you have new or worsening complaints including shortness of breath, chest pain Referrals: Rebeca Garcia [Primary Care Provider] - Discharge Data Discharge Date/Time-TO BE ENTERED AT DEPARTURE: 03/24/22 17:35 Medical Decision Making Patient appears well, he has not hypoxic and ambulatory without dyspnea He is given an infusion of antiviral and will continue to isolate as he is symptomatic with COVID-19 He was observed for an hour after administration of the antiviral and did not show any evidence of allergies or reaction Discharged home in stable condition with stable vital Risk benefit infusion discussed and patient accepted these risks Medical Records Medical records reviewed: Yes I reviewed the patient's medical records. Lab Data Lab results reviewed: Yes I reviewed the patient's lab results. HPI General Date/Time Provider Initiated Documentation: 03/24/22 15:45. HPI Narrative: This 66-year-old gentleman with history of hypertension and hyperlipidemia presents with COVID-19 positive test yesterday. He has been sick for approximately 6 to 7 days. He mostly has upper respiratory symptoms with cough, runny nose and facial congestion. He denies any fever or shortness of breath. He denies any chest discomfort or calf pain or swelling. He was sent here from [facility] for antiviral infusion. Related Data Home Medications Medication Instructions Recorded Confirmed albuterol sulfate 90 mcg/actuation 1 puff IH Q6H PRN #8 gm 11/15/18 03/24/22 aerosol inhaler aspirin 81 mg tablet,delayed 81 mg PO DAILY 11/15/18 03/24/22 release (Aspirin Low Dose) divalproex 500 mg tablet,extended 1,500 mg PO DAILY 11/15/18 03/24/22 release 24 hr multivit with minerals-iron 18 1 tab PO DAILY 11/15/18 03/24/22 mg-folic ac 400 mcg-vit K 25 mcg tablet (Multi-Day Plus Minerals) omeprazole magnesium 20 mg 20 mg PO DAILY 11/15/18 03/24/22 tablet,delayed release (Prilosec OTC) simvastatin 40 mg tablet 40 mg PO QPM 11/15/18 03/24/22 metformin 1,000 mg tablet 500 mg PO BID 11/01/19 03/24/22 amlodipine 5 mg tablet 5 mg PO DAILY 10/26/21 03/24/22 canagliflozin 100 mg tablet 100 mg PO DAILY 10/26/21 03/24/22 (Invokana) Previous Rx's Medication Instructions Recorded albuterol sulfate 90 mcg/actuation 1 puff IH Q6H PRN #8 gm 11/15/18 aerosol inhaler Allergies Allergy/AdvReac Type Severity Reaction Status Date / Time carbamazepine [From Tegretol] Allergy Unverified 03/24/22 15:52 General Stated Complaint: RespSymp JOANNA: 3 Review of Systems All systems reviewed & are unremarkable except as noted in HPI and below PFSH All Active Problems (Updated 10/26/21 @ 23:36 by Eliecer Bonner MD) Malaise and fatigue (Acute) Hypertension (Chronic) Medical History Diabetes mellitus HTN (hypertension) Hypercholesterolemia Seizure disorder Surgical History S/P shoulder surgery Social History Smoking/Tobacco Use Status: Never Smoking risk assessment performed?: Yes Alcohol Intake: never Drug use: Never Substance use type: does not use Do you feel safe at home: Yes Do you feel safe in your relationship?: Yes Exam Const General: cooperative, comfortable and no acute distress Eyes Sclera: sclerae normal Resp Effort & Inspection: normal respiratory effort Auscultation: clear to auscultation bilaterally Cardio Rate: regular rate Rhythm: regular rhythm Skin General skin exam: no rashes or lesions noted Neuro General: patient alert and patient oriented x3 Course Vital Signs Vital signs: Vital Signs Temperature 36.5 C 03/24/22 15:49 Pulse 88 03/24/22 15:49 Respiratory Rate 16 03/24/22 15:49 Blood Pressure 141/99 H 03/24/22 15:49 Pulse Oximetry 97 03/24/22 15:49 Temperature 36.5 C 03/24/22 15:49 Temperature Source Temporal Artery Scan 03/24/22 15:49 Pulse 88 03/24/22 15:49 Respiratory Rate 16 03/24/22 15:49 Respiratory Effort 03/24/22 15:49 Blood Pressure 141/99 H 03/24/22 15:49 Blood Pressure Position Sitting 03/24/22 15:49 Pulse Oximetry 97 03/24/22 15:49 Oxygen Delivery Method Room Air 03/24/22 15:49 Oxygen Flow Rate 0 03/24/22 15:49 Pain Level 3 03/24/22 15:49
== END 2022-03-24 17:35 | disposition home or self-care (01) ==
PROVIDERS: Emergency Provider Physician Assistant; PCP Physician Assistant
DX: U07.1 COVID-19 (principal)
CPT/HCPCS: 96374; 99284; Q0222; 99283

== ENCOUNTER 2022-04-11 10:33 | Outpatient (REF) | payer OTHER, SELFPAY ==
[2022-04-11 20:01] LABS: Anion Gap 14.2 mmol/L (3-11); BUN 18 mg/dL (7-18); CO2 24.8 mmol/L (21.0-32.0); CREATININE 0.9 mg/dL (0.70-1.30); Chloride 104 mmol/L (98-107); Glucose 140 mg/dL (74-106); Potassium 4.2 mmol/L (3.5-5.1); Sodium 143 mmol/L (136-145)
== END 2022-04-11 10:34 | disposition home or self-care (01) ==
LOC: NCHCN 10:33
PROVIDERS: PCP Physician Assistant; Visit Provider Physician Assistant
DX: E11.9 Type 2 diabetes mellitus without complications (principal)
CPT/HCPCS: 80048

== ENCOUNTER 2022-08-09 17:19 | Outpatient (REF) | payer OTHER, SELFPAY ==
[2022-08-09 19:32] LABS: Abs Immature Grans 0.02 10^3/uL (0.0-0.06); Absolute Basophil Count 0.03 10^3/uL (0.0-0.2); Absolute Lymphocyte Count 2.36 10^3/uL (1.2-3.4); Absolute Monocyte Count 0.42 10^3/uL (0.1-0.8); Absolute Neutrophil Count 2.89 10^3/uL (1.2-6.7); Basophils % 0.5; Eosinophils % 3.4; HCT 51.8 % (40.0-50.0); HGB 17.5 g/dL (13.5-17.5); Immature Grans % 0.3; Lymphocytes % 39.9; MCHC 33.8 % (32.0-36.0); MCV 92 fL (80-95); MPV 11.2 fL (8.0-11.0); Monocytes % 7.1; Neutrophils % 48.8; Platelet Count 161 10^3/uL (130-400); RBC 5.64 10^6/uL (4.36-5.78); RDW 14.4 % (11.8-14.1); RDW-SD 49.5 fL; WBC 5.92 10^3/uL (4.4-10.8)
[2022-08-09 20:15] LABS: ALT 38 U/L (16-63); AST 19 U/L (15-37); Alkaline Phosphatase 77 U/L (46-116); Bilirubin, Direct 0.2 mg/dL (0.0-0.2); Bilirubin, Total 0.7 mg/dL (0.2-1.0); Total Protein 7.1 g/dL (6.4-8.2)
== END 2022-08-09 17:20 | disposition home or self-care (01) ==
LOC: NCHCN 17:19
PROVIDERS: PCP Physician Assistant; Visit Provider Physician Assistant
DX: I10 Essential (primary) hypertension (principal); E11.9 Type 2 diabetes mellitus without complications; Z86.69 Personal history of other diseases of the nervous system and sense organs
CPT/HCPCS: 80076; 80164; 85025

== ENCOUNTER 2023-04-09 16:43 | Outpatient (CLI) | payer OTHER, SELFPAY ==
[2023-04-09 16:10] LABS: Estimated GFR 83.01 (mL/min/1.73m2)
== END 2023-04-09 16:44 | disposition home or self-care (01) ==
LOC: LBO 16:43
PROVIDERS: PCP Physician Assistant; Visit Provider Physician Assistant
DX: R42 Dizziness and giddiness (principal)
CPT/HCPCS: 36415; 82565

== ENCOUNTER 2023-08-15 16:30 | Outpatient (REF) | payer OTHER, SELFPAY ==
[2023-08-15 19:07] LABS: MCH 31.1 pg (27.0-33.0); MCHC 33.4 % (32.0-36.0); MCV 93 fL (80-95); MPV 11.1 fL (8.0-11.0); Platelet Count 165 10^3/uL (130-400); RBC 5.88 10^6/uL (4.36-5.78); RDW 14.6 % (11.8-14.1); WBC 6.91 10^3/uL (4.4-10.8)
[2023-08-15 19:09] LABS: HCT 54.8 % (40.0-50.0); HGB 18.3 g/dL (13.5-17.5)
[2023-08-15 19:28] LABS: ALT 55 U/L (16-63); AST 30 U/L (15-37); Alkaline Phosphatase 71 U/L (46-116); Anion Gap 11.4 mmol/L (3-11); BUN 14 mg/dL (7-18); Bilirubin, Total 0.8 mg/dL (0.2-1.0); CO2 26.6 mmol/L (21.0-32.0); CREATININE 1.1 mg/dL (0.70-1.30); Calcium 10.1 mg/dL (8.5-10.1); Chloride 102 mmol/L (98-107); Estimated GFR 73.58 (mL/min/1.73m2); Glucose 187 mg/dL (74-106); Potassium 4.2 mmol/L (3.5-5.1); Sodium 140 mmol/L (136-145); TSH (W/Ref FT4) 1.45 uIU/mL (0.36-3.74); Total Protein 7.9 g/dL (6.4-8.2)
[2023-08-16 18:02] LABS: Valproic Acid 88 ug/mL (50-100)
== END 2023-08-15 16:31 | disposition home or self-care (01) ==
LOC: NCHCN 16:30
PROVIDERS: PCP Physician Assistant; Visit Provider Physician Assistant
DX: E11.9 Type 2 diabetes mellitus without complications (principal); I10 Essential (primary) hypertension; Z86.69 Personal history of other diseases of the nervous system and sense organs; Z51.81 Encounter for therapeutic drug level monitoring; Z79.899 Other long term (current) drug therapy
CPT/HCPCS: 80053; 85027; 80164; 84443

== ENCOUNTER 2023-12-13 16:49 | Outpatient (REF) | payer OTHER, SELFPAY ==
[2023-12-13 19:10] LABS: Hemoglobin A1C 6.4 % (<5.7)
[2023-12-13 19:20] LABS: LDL CHOLESTEROL 62 mg/dL (<100)
[2023-12-13 19:28] LABS: COMMENT (LAB VIEW ONLY) 78.42 mg/dL; Microalb ug/mg Crea 7.4 ug/mg Cr
== END 2023-12-13 16:50 | disposition home or self-care (01) ==
LOC: NCHCN 16:49
PROVIDERS: PCP Physician Assistant; Visit Provider Physician Assistant
DX: E11.9 Type 2 diabetes mellitus without complications (principal); E78.5 Hyperlipidemia, unspecified
CPT/HCPCS: 83721; 82043; 82570; 83036

== ENCOUNTER 2024-10-06 13:35 | Outpatient (REF) | payer OTHER, SELFPAY ==
--- OUTSIDE RECORDS SUMMARY | 2024-10-06 13:47 | XMS_ITS | Encounter Summary ---
Author Organization [facility] Address [address] [place] [address] Care Team Providers Care Channeler Runner Name Role Phone Rebeca Garcia Primary Care Provider + Reason for Visit * Reason Comments Memory Loss * Referral (Routine) - Receiving Office to Obtain Authorization Specialty Diagnoses / Procedures Referred By Nela bravo Referred To Contact Psychology Diagnoses Memory loss Cerebral atrophy (HCC-CMS) History of seizures Rebeca Garcia PA [address] [place] [address] Phone: tel: fax: [facility] - Medical Office Building [address] [place] [address] Phone: tel: fax: Referral ID Status Reason Start Date Expiration Date Visits Requested Visits Authorized [id number] Receiving Office to Obtain Authorization 1 1 Encounter Details Date Type Department Care Team (Late st Contact Info) Description 11/05/2023 13:00 EST Office Visit [facility] - Medical Office Building [address] [place] [address] Hossein Fowler MD [address] [place] [address] [facility], [address] [place] [phone] Memory loss (Primary Dx) Social History Tobacco Use Types Packs/Day Years Used Date Smoking Tobacco: Never Smokeless Tobacco: Never Tobacco Cessation:Counseling Given: Not Answered Alcohol Use Standard Drinks/Week Comments Yes 0 (1 standard drink = 0.6 oz pur e alcohol) Rare Interpersonal Safety Answer Date Record ed Physically Hurt Never 06/26/2020 Verbally Threaten Not on file 06/26/2020 Sex and Gender Information Value Date Recorded Sex Assigned at Not on file Legal Sex Male 18:06 EST Gender Identity Male 12/31/2019 13:46 EST Sexual Orientation Not on file documented as of this encounter Last Filed Vital Signs Vital Sign Reading Time Taken Comments Blood Pressure - - Pulse - - Temperature - - Respiratory Rate - - Oxygen Saturation 97% 11/05/2023 1252 EST Inhaled Oxygen Concentration - - Weight 114.8 kg (253 lb) 11/05/2023 1252 EST Height - - Body Mass Index 37.9 01/13/2020 0853 EST documented in this encounter Functional Status * Because of a physical, mental, or emotional condition, does this person have difficulty doing errands alone such as visiting a doctor's office or shopping? Answer Date of Assessment Author No 08/11/2018 12:13 EDT documented as of this encounter Mental Status * Because of a physical, mental, or emotional condition, does this person have serious difficulty concentrating, remembering, or making decisions? Answer Entry Date Author No 12/30/2019 11:25 EST Vaishali Rocha documented in this encounter Progress Notes * Nori Jalloh MA - 11/05/2023 1300 EST Patient presents for new patient visit Patient is accompanied by himself Vitamin B-12: 898 as of 10/23/23 Recent illnesses: COVID a few weeks ago he states. Not hospitalized. Recent Falls: No Recent hospital visits: No Allergies reconciled. Pharmacy confirmed. Medications reconciled: with patient Medications not being taken: Cinnamom Vitals added to the chart. NORI JALLOH MA 11/05/2023 12:55 * Hossein Fowler MD - 11/05/[address] [facility] NEW PATIENT CONSULTATION NOTE - 11/05/2023 Presenting Problem: I was asked to see this patient because of progressive cognitive changes. Referral Source: I was asked to see this patient in consultation by AKOSUA Gardner. Informants: Mr. Curry and son-in-law Aakash, records provided for review, and review of [facility]. Patient Profile: Mr. Curry is a 68-year-old, left-handed man who was born in [place] and raised in [place], [place]. There is little known about his biological family history, as Mr. Curry was adopted. He was raised with his two adopted sisters, the oldest whom lives in [place]. He does not havemuch contact with his younger adopted sister. Who lives in [place]. Mr. Curry had two marriages that ended in divorce. He a third time, and his in December 2016 after 30 years of marriage. He is not currently in a relationship. He has one adult daughter who lives locally. Mr. Curry graduated from high school. 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 He retired at age 63. At present, he lives independently in [place]. As mentioned, Mr. Curry was adopted, and therefore, he does not know whether there is any family history of neurological or psychiatric conditions. Mr. Curry's pertinent medical history is positive for seizure disorder (reportedly first diagnosed in 1994 and characterized by petit mal and grand mal seizures). His seizures have been well-managed for a number of years (currently on Depakote ER). Other medical history includes type 2 diabetes,hypertension, hyperlipidemia, and anxiety. History of Present Illness: Mr. Curry states that he is referred to the Memory Program due to concerns for memory difficulties in the context of brain shrinkage that was reportedly documented onhis MRI. Upon interview, he states that he experienced some declines in his memory in the (inthe setting of seizures), but he feels that his cognitive issues subsequently reached a plateau. Atpresent, he reports having fairly clear recall of remote information, and he describes no glaring problems recalling recent events. He states that his daughter will occasionally say that she has already told him something, but in general, he reports that he reliably remembers conversations that areimportant. He feels that diminished hearing may explain occasions when he fails to recall a conversation. For prospective memory, he independently and reliably keeps track of his upcoming appointments and scheduled activities, as he makes sure to write everything down. He describes no declines in his procedural memory, such as when accessing previously well-learned skills. He reports that aside from occasionally misplacing his tools, he generally does a good job of keeping track of his belongings. Mr. Curry states that he has always struggled with name recall, but he denies problems with wordretrieval more generally during conversation. He states that he is able to follow and understand conversations, as long as he is paying attention. He states that he has always struggled with reading comprehension, adding that he has a history of dyslexia and was never a great student. He reports that he used to have very neat handwriting, but his handwriting has gotten sloppier, and he notices a slight hand tremor when engaging in fine motor tasks. He reports that he has never been strong with math, but he believes he can still perform simple math computations. He describes no issues with reas oning, decision-making, and geographic orientation. Aakash Ortiz (son-in-law) was available to provide additional information about Mr. Curry's cognitive functioning and daily activities. He states that he has known his dztksk-qx-rvt for 20 years, andhe has not observed any changes in his cognitive functioning over time. He adds that Mr. Curry'sdaughter notes that her father has always been forgetful, but she does not observe any significant d ecline. He feels that his long-term memory and recall of recent events is fine. He states that his recall of conversations is the same as always. He reports that he does fairly well with management of his upcoming appointments and other scheduled activities, recalling only one instance of him not showing up to meet them for an event. It appears that he remembered the engagement but had confused the location. He reports no declines in his procedural memory, and he is not aware of him frequently misplacing his belongings. He feels that his decision- making and judgment are also fine. Mr. Ortiz reports that his lzjwel-mh-trm remains completely independent in terms of basic self-care and ADLs. He independently and reliably manages his prescription medications. He is independent for household tasks, including cooking, laundry, and cleaning. He does his own grocery shopping, and there are no concerns regarding his driving navigation and safety. He manages his own finances and bill-pay, reportedly without difficulty. Regarding social engagement, Mr. Ortiz reports that he and his have dinner with Mr. Curry about 5 to 6 times per week. During the summer, he lives at the family camp and has a number of friends there who he has known for years. 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 Additionally, he attends his grandchildren's sporting events. Mr. Ortiz describes no concerns for depression, anxiety, anger, or personality changes. In general, he states that his afhwij-cr-mno is usually in a good mood and is very level. Medical History, Problem List, Medications, Allergies, and Family History: These elements are reviewed and annotated/updated appropriately in [facility]. Past Medical History: Diagnosis Date Abnormal glucose tolerance test 03/09/2009 Allergic rhinitis 03/19/2007 Change in bowel habit 05/31/2023 Depression Erectile dysfunction Essential hypertension 10/24/2004 GERD (gastroesophageal reflux disease) 08/05/2002 Hyperlipidemia 01/31/2005 Impaired glucose tolerance 10/03/2011 Routine general medical examination at health care facility 08/05/2002 Routine history and physical examination of adult 08/05/2002 Seizure disorder ([facility]) 08/05/2002 Seizures ([facility]) Type 2 diabetes mellitus without complication, without long-term current use of insulin ([facility]) Past Surgical History: Procedure Laterality Date CHOLECYSTECTOMY R shoulder yael Dr. Terence Barrera A HYDROCELE EXCISION 02/23/2014 Dr. Canales SHOULDER ARTHROPLASTY 10/25/2012 left SHOULDER SURGERY s/p dislocation Patient Active Problem List Diagnosis Seizure disorder ([facility]) Gastroesophageal reflux disease Hypertension Hyperlipidemia Allergic rhinitis Erectile dysfunction Atypical chest pain Depression Anxiety Type 2 diabetes mellitus ([facility]) Polyarthropathy Hydrocele Obesity Tubular adenoma of colon Tinnitus Current Outpatient Medications Medication acetaminophen (TYLENOL) 650 mg tablet amLODIPine (NORVASC) 5 mg tablet aspirin 81 mg EC tablet atorvastatin (LIPITOR) 40 mg tablet canagliflozin (INVOKANA) 100 mg tablet divalproex (DEPAKOTE) 500 mg delayed release tablet fluticasone (FLONASE) 50 mcg/actuation nasal spray losartan (COZAAR) 100 mg tablet metFORMIN (GLUCOPHAGE) 500 mg tablet MULTIVITAMINS (MULTI-VITAMIN ORAL) Bil[place] Oil oil omeprazole (PRILOSEC) 20 mg capsule TURMERIC ORAL No current facility-administered medications for this visit. Allergies as of 11/05/2023 - Reviewed 11/05/2023 Allergen Reaction Noted Carbamazepine Rash 08/25/2009 Dilantin [phenytoin sodium extended] 03/03/2019 Lisinopril 03/03/2019 Social History Tobacco Use Smoking status: Never Smokeless tobacco: Never Substance Use Topics Alcohol use: Yes Comment: Rare Family History: As noted in the Patient Profile and the Medical History Questionnaire. Review of Systems: A 14 system inventory was completed and reviewed at the time of this encounter. No symptoms in need of additional medical assessment were identified, and the template can be found in the Medical History Questionnaire provided by the patient and located in Scans. Physical Examination: General: Weight was not determined. The patient appeared his stated age, was in no acute distress, and was cooperative for the interview and examination. Grooming and hygiene were unremarkable. Therewere no hallucinations, delusions or evidence of depression. Carotid bruits were not heard. Cardiacexam revealed no abnormalities and lung aguilar were clear. Examination of head and neck functions revealed no thyromegaly and no evidence of lymph nodes. The throat was clear as were the eardrums. Extremities were nontender, as were joints. The skin was clear. Neurologic: Cranial nerve examination revealed the following. Pupils were equal and reactive to light and accommodation. EOMs were full without nystagmus. Aguilar were full to confrontation. The face was symmetric at rest and moved symmetrically. Jaw power was full and there was no evidence of weakness of the tongue or fasciculations. Shoulder shrugging was full. Motor exam revealed full strength,no abnormalities of tone and normal bulk. No involuntary movements were noted. Reflexes were 1+ andsymmetric with downgoing toes. Coordination as tested by finger to nose, rapid rhythmic alternatingmovements was normal. Station and gait were unremarkable. Additional Pertinent Information: Mr. Curry underwent brain imaging (MRI scan) in April 2023 and this showed non-specific, age-related changes. Recent laboratory testing germane to a memory evaluation was unremarkable or non-specific. Assessment: Mr. Curry achieved a score of 27 on the MMSE-2, which falls in the average range (T = 49) and at the 47th percentile, and an Adjusted Total Score of 97 on the CERAD-NB, which falls in the high average range (T = 59) and at the 82nd percentile. Mr. Curry is a 68-year-old, left-handed, man with 12 years of education. He presents to the Memory Program due to a self-reported history of memory difficulties, which are noted in the context of seizure disorder (well controlled on medication), anxiety, type 2 diabetes, HTN, and HLD. Heapparently underwent MRI of the brain in April 2023, which showed mild atrophy, but no acute changes. His son-in-law, who accompanied him to this assessment, reported no concerns for cognitive decline, and Mr. Curry remains completely independent for ADLs and IADLs. Upon testing, Mr. Curry was found to be adequately oriented in all spheres and performing withinthe average range for attention, working memory, and visual-motor processing speed. He demonstratedaverage to high average communication skills, and his spatial organization skills were also largely intact. On memory testing, his new learning and recall of verbal material was average, and his recall of visuospatial material was average to high average. Verbal reasoning skills were intact for hisage. Taken together, this is a completely normal neuropsychological profile, with his performances falling entirely within the average to high average range across the tested domains. Moreover, information shared during the clinical interviews was not overly compelling for cognitive decline. In short, there is no indication of any sort of neurocognitive disorder or emerging neurodegenerative disorder (dementia) at this time. Plan: 1. After I completed my evaluation, I met with Mr. Curry and described my assessment as above. 2. I addressed questions. 3. No follow up planned at this time. 4. I spent 35 minutes performing this consultation which included conversation and discussion with the patient, with more than 50% of that time devoted to counseling and coordination of care; today'sreview of medical records in preparation for the consultation; and documentation via this note. Hossein Fowler MD Commercial Production Editor cc: AKOSUA Chaidez documented in this encounter Plan of Treatment Not on file documented as of this encounter Goals Goal Patient Goal Type Associated Problems Recent Progress Patient-Stated? 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 Pertinent information is documented in the visit encounter. Counseling was provided to assess readiness, confidence and/or barriers to self-care. To learn more about your health please visit: [email or web address]/Pages/Wellness-Resources/Ixqucozkc-Eiorfi-Ng sourc e-Center.aspx LDL < 100 Result Component Hyperlipidemia 56( 0 12:18 EST) No Maggie Andrade LPN HEMOGLOBIN A1C < 7.0 Result Component Type 2 diabetes mellitus ([facility]) 7.7(12/30/19 20 12:18 EST) No Maggie Andrade LPN documented as of this encounter Visit Diagnoses Diagnosis Memory loss- Primary documented in this encounter Discontinued Medications Medication Sig Discontinue Reason Start Date End Da te cinnamon bark (CINNAMON ORAL) Take 1 Capsule by mouth daily. Therapy completed 11/05/2023 DOCOSAHEXANOIC ACID/EPA (FISH OIL ORAL) Take 1 Capsule by mouth daily Alternate therapy 11/05/2023 hydroCHLOROthiazide (HYDRODIURIL) 25 mg tablet take 1 tablet by mouth once daily Therapy completed 09/13/2020 11/05/2023 documented as of this encounter Historical Medications * This list may reflect changes made after this encounter. [place] Oil oil Take by mouth daily. losartan (COZAAR) 100 mg tablet Take 1 Tablet by mouth daily. canagliflozin (INVOKANA) 100 mg tablet 0 Refill(s) 11/29/2022 added in this encounter Care Teams Channeler Runner Relationship Specialty Start Date End Date Rebeca Garcia PA [address] [place] [id number] PCP - General 11/25/21 documented as of this encounter
--- OUTSIDE RECORDS SUMMARY | 2024-10-06 13:47 | XMS_ITS | Encounter Summary ---
Author Organization [facility] Address [address] [place] [address] Care Team Providers Care Voice Pathologist Name Role Phone Rebeca Garcia Primary Care Provider + Encounter Details Date Type Department Care Team (Late st Contact Info) Description 07/10/2023 Orders Only [facility] - Medical Office Building [address], [place] [phone] Hossein Fowler MD [address] [facility] Medical Office Building, [address] [place] [address] Social History Tobacco Use Types Packs/Day Years Used Date Smoking Tobacco: Never Smokeless Tobacco: Never Alcohol Use Standard Drinks/Week Comments Yes 0 (1 standard drink = 0.6 oz pur e alcohol) 2-3 drinks per week Interpersonal Safety Answer Date Record ed Physically Hurt Never 06/26/2020 Verbally Threaten Not on file 06/26/2020 Sex and Gender Information Value Date Recorded Sex Assigned at Not on file Legal Sex Male 18:06 EST Gender Identity Male 12/31/2019 13:46 EST Sexual Orientation Not on file documented as of this encounter Functional Status * Because of [...] EST Vaishali Rocha documented in this encounter Plan of Treatment [...] learn more about your health please visit: [email or web address]/medcenter/Pages/Wellness-Resources/Qspolkegd-Mlsqko-Vp sourc e-Center.aspx LDL < 100 Result Component Hyperlipidemia 56( 0 12:18 EST) No Maggie Andrade LPN HEMOGLOBIN A1C < 7.0 Result Component Type 2 diabetes mellitus ([facility]) 7.7(12/30/19 20 12:18 EST) No Maggie Andrade LPN documented as of this encounter Visit Diagnoses Not on filedocumented in this encounter Care Teams Voice Pathologist Relationship Specialty Start Date End Date Rebeca Garcia PA [address] [place] [id number] PCP - General 11/25/21 documented as of this encounter
--- OUTSIDE RECORDS SUMMARY | 2024-10-06 13:47 | XMS_ITS | Encounter Summary ---
Author Organization [facility] Address [address] [place] [address] Care Team Providers Care Brim And Crown Presser Name Role Phone Roxanna Hannah MD Primary Care Provider + Reason for Visit * Reason Onset Date Comments Medications Refill 09/12/2020 Encounter Details Date Type Department Care Team (Late st Contact Info) Description 09/12/2020 Refill [facility] Medicine [address] [address] Roxanna Hannah MD [address] [place] [phone] Medications Refill Social History Tobacco Use Types Packs/Day Years [...] Entry Date Author No 12/30/2019 11:25 EST Aj Vaishali dunnrena documented in this encounter Ordered Prescriptions Prescription Sig Dispense Quantity Refills Last Filled Start Date End Date hydroCHLOROthiazid e (HYDRODIURIL) 25 mg tablet take 1 tablet by mouth once daily 90 Tab 1 09/13/2020 11/05/2023 documented in this encounter Miscellaneous Notes * Telephone Encounter - Michaela Taylor RN - 09/13/2020 1020 EDT All documentation reviewed and approved. MICHAELA MANZANARES RN 09/13/2020 10:20 * Telephone Encounter - Iwona Troncoso - 09/12/2020 1514 EDT Medication(s) Requested: Hydrochlorothiazide 25 mg #90 w/3R Preferred Pharmacy: [facility] Is patient out of medication? No Last Refill Date: 03/31/19 Last Visit Date with Ordering Provider: 01/13/20 Next Non-Acute Visit Date Scheduled with Care Team: No. Iwona Troncoso 09/12/2020 15:18 documented in this encounter Plan of Treatment [...] learn more about your health please visit: [email or web address]/Pages/Wellness-Resources/Qjplkjegw-Sdahxm-Bg sourc e-Center.aspx LDL < 100 Result Component Hyperlipidemia 56( 0 12:18 EST) No Maggie Andrade LPN HEMOGLOBIN A1C < 7.0 Result Component Type 2 diabetes mellitus ([facility]) 7.7(12/30/19 20 12:18 EST) No Maggie Andrade LPN documented as of this encounter Visit Diagnoses Not on filedocumented in this encounter Discontinued Medications Medication Sig Discontinue Reason Start Date End Da te hydroCHLOROthiazide (HYDRODIURIL) 25 mg tablet take 1 tablet by mouth once daily Reorder 03/31/2019 09/12/2020 documented as of this encounter Care Teams Brim And Crown Presser Relationship Specialty Start Date End Date Roxanna Hannah MD [address] [place] [phone] PCP - General Family Medicine - Primary Care 09/12/20 12/08/20 documented as of this encounter
--- OUTSIDE RECORDS SUMMARY | 2024-10-06 13:47 | XMS_ITS | Encounter Summary ---
Author Organization [facility] Address [address] [place] [address] Care Team Providers Care Air Crew Supervisor Name Role Phone Rebeca Garcia Primary Care Provider + Encounter Details Date Type Department Care Team (Late st Contact Info) Description 03/23/2022 Lab Requisition [facility] Pathology & Laboratory Medicine - [facility] [address] [place] [address] Outr Resulting Lab, Provider Social History Tobacco Use Types Packs/Day Years [...] learn more about your health please visit: https://www.[facility].org/medcenter/Pages/Wellness-Resources/Pwylruflo-Cgkrau-Yf sourc e-Center.aspx LDL < 100 Result Component Hyperlipidemia 56( 0 12:18 EST) No Maggie Andrade LPN HEMOGLOBIN A1C < 7.0 Result Component Type 2 diabetes mellitus ([facility]) 7.7(12/30/19 20 12:18 EST) No Maggie Andrade LPN documented as of this encounter Procedures Procedure Name Priority Date/Time Associated Diagnosis Comments ZZCOVID-19 TEST [facility] PCR Today 03/22/2022 16:00 EDT COVID-19 TESTING Routine 03/22/2022 16:0 0 EDT documented in this encounter Results * COVID-19 TEST [facility] PCR (03/22/2022 16:00 EDT) Swab 03/22/2022 16:0 0 EDT 03/23/2022 16:54 EDT us Provider Outr Resulting Lab MICROBIOLOGY - GENER AL ORDERABLES Final Result Performing Organization Address [facility] de Phone Number [facility] [address] [place] [address] * (ABNORMAL) COVID-19 TESTING (03/22/2022 16:00 EDT) COVID-19 rt-PCR Result Positive( AA) Negative 03/24/2022 10:24 EDT [facility] Comment: This test has not been FDA cleared or approved. This test has been authorized by FDA under an EUA for use by authorized laboratories. This test has been authorized only for detection of nucleic acid from 2019-nCoV, not for any other viruses or pathogens. This test is only authorized for the duration of the declaration that circumstances exist justifying the authorization of emergency use of in vitro diagnostic tests for detection and/or diagnosis of 2019-nCoV under section 564(b)(1) of Act, 21 U.S.C ?? 360bbb-3(b) (1), unless the authorization is terminated or revoked sooner. Testing was performed using the marlon SARS-CoV-2 assay ([employer] on the Marlon 6800 System Performing Lab Marlon 6800 [facility] 03/24/2022 10:24 EDT [facility] Swab 03/22/2022 16:0 0 EDT 03/23/2022 16:54 EDT us Provider Outr Resulting Lab MICROBIOLOGY - GENER AL ORDERABLES Final Result Performing Organization Address City/[facility] Co de Phone Number [facility] [address] [place] [address] documented in this encounter Visit Diagnoses Not on filedocumented in this encounter Additional Health Concerns Infection Onset Date Last Indicated Resolved Time COVID-19 03/22/2022 03/22/2022 04/11/2022 22:1 5 EDT documented as of this encounter Care Teams Air Crew Supervisor Relationship Specialty Start Date End Date Rebeca Garcia PA [address] [place] [phone] PCP - General 11/25/21 documented as of this encounter
--- OUTSIDE RECORDS SUMMARY | 2024-10-06 13:47 | XMS_ITS | Encounter Summary ---
Author Organization [facility] Address [address] [place] [address] Care Team Providers Care Home Theatre Technician Name Role Phone Roxanna Hannah MD Primary Care Provider + Unknown, Provider Primary Care Provider Unava ilable Roxanna Hannah MD Primary Care Provider + Reason for Visit * Reason Onset Date Comments Epidemic Concern 03/23/2020 Encounter Details Date Type Department Care Team (Late st Contact Info) Description 03/23/[address] [address] Roxanna Hannah MD [address] [place] [address] [phone] Epidemic Concern Social History Tobacco Use Types Packs/Day Years [...] EST Vaishali Rocha documented in this encounter Miscellaneous Notes * Telephone Encounter - Maggie Andrade LPN - 03/24/2020 0923 EDT Left message for pt to return call regarding mediuim risk patient outreach. This nurse has additional questions to review with pt. Please ask for Maggie. * Telephone Encounter - Iwona Troncoso - 03/23/2020 1434 EDT Patient is calling back reporting he is doing well with no questions/concerns; currently out [facility]. Patient is able to get his own groceries. * Telephone Encounter - Maggie Andrade LPN - 03/23/2020 0834 EDT Left message for pt to call regarding medium risk patient outreach. Please ask for Maggie. documented in this encounter Plan of Treatment [...] learn more about your health please visit: https://www.[facility].org/medcenter/Pages/Wellness-Resources/Kinrmztgb-Txjjho-Dm sourc e-Center.aspx LDL < 100 Result Component Hyperlipidemia 56( 0 12:18 EST) No Maggie Andrade LPN HEMOGLOBIN A1C < 7.0 Result Component Type 2 diabetes mellitus ([facility]) 7.7(12/30/19 20 12:18 EST) No Maggie Andrade LPN documented as of this encounter Visit Diagnoses Not on filedocumented in this encounter Care Teams Home Theatre Technician Relationship Specialty Start Date End Date Roxanna Hannah MD [address] [place] [phone] PCP - General 03/28/09 05/31/20 Unknown, Provider, [address] [place] [phone] PCP - General 06/01/20 09/11/20 Roxanna Hannah MD [address] [place] [phone] PCP - General Family Medicine - Primary Care 09/12/20 12/08/20 documented as of this encounter
--- OUTSIDE RECORDS SUMMARY | 2024-10-06 13:47 | XMS_ITS | Encounter Summary ---
Author Organization [facility] Address [address] [place] [address] Care Team Providers Care Oim Architect Name Role Phone Rebeca Garcia Primary Care Provider + Encounter Details Date Type Department Care Team (Late st Contact Info) Description 12/12/2022 Lab Requisition [facility] Pathology & Laboratory Medicine - [facility] [address] [place] [address] Steven Rodriguez MD [address] [place] [phone] Encounter for other general examination Social History Tobacco Use Types Packs/Day Years [...] learn more about your health please visit: https://www.[facility].org/medcenter/Pages/Wellness-Resources/Kirkabhde-Maxhcg-Hs sourc e-Center.aspx LDL < 100 Result Component Hyperlipidemia 56( 0 12:18 EST) No Maggie Andrade LPN HEMOGLOBIN A1C < 7.0 Result Component Type 2 diabetes mellitus ([facility]) 7.7(12/30/19 20 12:18 EST) No Maggie Andrade LPN documented as of this encounter Procedures Procedure Name Priority Date/Time Associated Diagnosis Comments SURGICAL PATHOLOGY Today 12/12/2022 12 :00 EST documented in this encounter Results * SURGICAL PATHOLOGY (12/12/2022 12:00 EST) Note to Patient The following pathology results have been interpreted by your pathologist and may be available to you before your health provider has had the opportunity to review them. Please allow time for your provider to receive these results and explore management options, if applicable. 12/17/2022 8:46 [facility] Final Diagnosis A. STOMACH, ANTRUM, BIOPSY: - Oxyntic-type mucosa with chemical (reactive) gastropathy. B. STOMACH, POLYP, BIOPSY: - Fundic gland polyp. C. ESOPHAGUS, LOWER, BIOPSY: - Reactive squamocolumnar mucosa. - Negative for intestinal metaplasia. - Negative for dysplasia. 12/17/2022 8:46 [facility] Attestation By the signature below, the attending physician certifies that they have 1) personally conducted a gross and/or microscopic examination of the described specimen(s), and/or personally interpreted the results of laboratory testing of the described specimen(s), and 2) personally rendered or confirmed the above diagnosis. 12/17/2022 8:46 [facility] at 0846 Clinical History Chronic GERD, dysplasia of polyp; esophagitis/osmin l colon 12/17/2022 8:46 [facility] Gross Description A. Received in formalin labelled with proper patient identification (initials M, G) and antrum bx are 4 vu tissues (0.3 x 0.1 x 0.1 cm to 0.1 x 0.1 x 0.1 cm). Entirely submitted in A1. B. Received in formalin labelled with proper patient identification (initials M, G) and gastric polyp are two vu tissues (0.2 x 0.1 x 0.1 cm and 0.1 x 0.1 x 0.1 cm). Entirely submitted in B1. C. Received in formalin labelled with proper patient identification (initials M, G) and lower esophageal bx are 5 pale white-vu tissues (0.4 x 0.1 x 0.1 cm to 0.1 x 0.1 x 0.1 cm). Entirely submitted in C1. Lora Pham 12/13/2022 8:24 12/17/2022 8:46 [facility] Performing Lab [facility] 12/17/2022 8:46 EST [facility] Scanned Images 12/17/2022 8:46 EST [facility] Tissue ENTIRE ESOPHAGUS / Unknown 12/12/2022 12:00 EST 12/13/2022 6:58 EST Tissue specimen (specimen) SPECIMEN FROM STOMACH OBTAINED BY TOTAL GASTRECTOMY / Unknown 12/12/2022 12:00 EST 12/13/2022 6:58 EST Tissue specimen (specimen) ESOPHAGEAL STRUCTURE / Unknown 12/12/2022 12:00 EST 12/13/2022 6:58 EST us Steven Rodriguez MD PATHOLOGY ORDERABLES Final Resul t [facility] [address] [place] [address] documented in this encounter Visit Diagnoses Diagnosis Encounter for other general examination documented in this encounter Care Teams Oim Architect Relationship Specialty Start Date End Date Rebeca Garcia PA [address] [place] [phone] PCP - General 11/25/21 documented as of this encounter
--- OUTSIDE RECORDS SUMMARY | 2024-10-06 13:47 | XMS_ITS | Encounter Summary ---
Author Organization [facility] Address [address] [place] [address] Care Team Providers Care News Specialist Name Role Phone Unknown, Provider Primary Care Provider Unava ilable Reason for Visit * Reason Comments Other Encounter Details Date Type Department Care Team (Late st Contact Info) Description 06/10/2020 Refill [facility] Family Medicine - [address] [address] Roxanna Hannah MD [address] [place] [phone] Other Social History Tobacco Use Types Packs/Day Years Used Date Smoking Tobacco: Never Smokeless Tobacco: Never Alcohol Use Standard Drinks/Week Comments Yes 0 (1 standard drink = 0.6 oz pur e alcohol) 2-3 drinks per week Sex and Gender Information Value Date Recorded [...] encounter Miscellaneous Notes * Telephone Encounter - Nathrop, Lana, RN - 06/15/2020 1639 EDT Script refused. LANA KEVIN RN 06/15/2020 16:39 * Telephone Encounter - Kathleen Calhoun - 06/15/2020 1210 EDT Patient called back and states he lives in [place] half the year, that's why he requested the [facility] there. He is actually in [place] today, so will just pick the prescription up in [place], so this request can be disregarded. * Telephone Encounter - Heydi Adams - 06/15/2020 1101 EDT Left a message on patients voicemail asking him to contact the office. Can you call patient to confirm pharmacy? ??Looks like this was sent to [facility] in [place] and should still have refills. * Telephone Encounter - Kathleen Calhoun - 06/14/2020 1253 EDT Medication(s) Requested: Depakote 500mg Preferred Pharmacy: [facility] Is patient out of medication? Unknown - pharmacy request Last Refill Date: 01/13/2020 #270 3 refills Last Visit Date with Ordering Provider: 01/13/2020 Next Non-Acute Visit Date Scheduled with Care Team: None Kathleen Calhoun 06/14/2020 12:53 documented in this encounter Plan of Treatment [...] more about your health please visit: https://www.[facility].org/medcenter/Pages/Wellness-Resources/Pwcbhlrrk-Exajgz-Hq sourc e-Center.aspx LDL < 100 Result Component Hyperlipidemia 56( 0 12:18 EST) No Maggie Andrade LPN HEMOGLOBIN A1C < 7.0 Result Component Type 2 diabetes mellitus ([facility]) 7.7(12/30/19 20 12:18 EST) No Maggie Andrade LPN documented as of this encounter Visit Diagnoses Not on filedocumented in this encounter Care Teams News Specialist Relationship Specialty Start Date End Date Unknown, Provider, PCP - General 06/01/20 09/11/20 documented as of this encounter
--- OUTSIDE RECORDS SUMMARY | 2024-10-06 13:47 | XMS_ITS | Continuity of Care Document ---
Author Organization [facility] Address [address] [place] [address] Phone [phone] Care Team Providers Care Document Control Assistant Name Role Phone Roxanna Hannah M.D. Care Team Information Rec eiver Unavailable YAHAIRA HANKINS MD Care Team Information Receiv er Unavailable Roxanna Hannah M.D. Primary Care Physician Un available
--- OUTSIDE RECORDS SUMMARY | 2024-10-06 13:47 | XMS_ITS | Encounter Summary ---
Author Organization [facility] Address [address] [place] [address] Care Team Providers Care Senior Game Advisor Name Role Phone Rebeca Garcia Primary Care Provider + Encounter Details Date Type Department Care Team (Late st Contact Info) Description 05/29/2023 Orders Only [facility] Memory Program - Medical Office Building [address] [place], [place] [id number] Pradeep Yi MD [address] [facility] Medical Office Building, [address] [place] [address] Memory loss (Primary Dx) Social History Tobacco [...] learn more about your health please visit: https://www.[facility].org/medcenter/Pages/Wellness-Resources/Mzjxfknbv-Yxtzds-Wd sourc e-Center.aspx LDL < 100 Result Component Hyperlipidemia 56( 0 12:18 EST) No Maggie Andrade LPN HEMOGLOBIN A1C < 7.0 Result Component Type 2 diabetes mellitus ([facility]) 7.7(12/30/19 20 12:18 EST) No Maggie Andrade LPN documented as of this encounter Results * VITAMIN B12 (10/23/2023 14:46 EST) Vitamin B12 898 211 - 911 pg/mL 10/23/2023 18:31 EST [facility] Blood VENOUS BLOOD / Unknown Venipuncture / Unknown 10/23/2023 14:46 EST 10/23/2023 14:46 EST Pradeep Yi MD CHEMISTRY & BLOOD GAS ORDERABLE S Final Result Performing Organization Address City/[facility]/ZIP Co de Phone Number [facility] [address] [place] [address] * TSH (10/23/2023 14:46 EST) [facility] TSH 1.67 0.47 - 4.68 mIU/L 10/23/2023 17:24 EST [facility] Blood VENOUS BLOOD / Unknown Venipuncture / Unknown 10/23/2023 14:46 EST 10/23/2023 14:46 EST Narrative [facility] - 10/23/2023 17:24 EST The results of this assay can be falsely lowered due to the consumption of Biotin. Pradeep Yi MD CHEMISTRY & BLOOD GAS ORDERABLE S Final Result Performing Organization Address [facility]/ZIP Co de Phone Number [facility] [address] [place] [address] * SYPHILIS SEROLOGY (10/23/2023 14:46 EST) [facility] Syphilis Serology Negative Negative 10/24/2023 10:22 EST [facility] Blood VENOUS BLOOD / Unknown Venipuncture / Unknown 10/23/2023 14:46 EST 10/23/2023 14:46 EST Pradeep Yi MD IMMUNOLOGY AND SEROLOGY ORDERAB LES Final Result Performing Organization Address [facility] Co de Phone Number [facility] [address] [place] [address] * (ABNORMAL) COMPREHENSIVE METABOLIC PANEL (CMP) (10/23/2023 14:46 EST) [facility] Sodium 143 136 - 145 mmol/L 10/23/2023 16:49 EST [facility] Potassium 4.4 3.5 - 5.0 mmol/L 10/23/2023 16:49 [facility] Chloride 104 96 - 110 mmol/L 10/23/2023 16:49 [facility] CO2 Total 27 22 - 32 mmol/L 10/23/2023 16:49 [facility] Glucose 105(H) 70 - 99 mg/dl 10/23/2023 16:49 [facility] BUN 21 10 - 26 mg/dL 10/23/2023 16:49 [facility] Creatinine 0.84 0.66 - 1.25 mg/dL 10/23/2023 16:49 [facility] eGFR 96 >60 mL/min/1.7 3m2 10/23/2023 16:49 [facility] Total Protein 7.6 6.3 - 8.2 g/dL 10/23/2023 16:49 [facility] Albumin 4.6 3.4 - 4.9 g/dL 10/23/2023 16:49 [facility] Alkaline Phosphatase 66 38 - 126 U/L 10/23/2023 16:49 [facility] AST 30 15 - 46 U/L 10/23/2023 16:49 [facility] ALT 35 <50 U/L 10/23/2023 16:49 [facility] Bilirubin, Total 0.6 <1.4 mg/dL 10/23/20 16:49 [facility] Calcium 9.9 8.5 - 10.5 mg/dL 10/23/2023 16:49 [facility] Albumin/Globulin Ratio 1.5 1.0 - 2.5 g/dL 10/23/2023 16:49 [facility] Anion Gap 12 5 - 14 mmol/L 10/23/2023 16:49 [facility] Blood VENOUS BLOOD / Unknown Venipuncture / Unknown 10/23/2023 14:46 EST 10/23/2023 14:46 EST us Pradeep Yi MD CHEMISTRY & BLOOD GAS ORDERABLE S Final Result [facility] [address] [place] [address] * (ABNORMAL) COMPLETE BLOOD COUNT AND DIFFERENTIAL (10/23/2023 14:46 EST) WBC 6.80 4.00 - 10.40 K/cmm 10/23/2023 16:05 [facility] RBC 5.68 4.36 - 5.78 M/cmm 10/23/2023 16:05 [facility] Hemoglobin 17.9(H) 13.8 - 17.3 g/dL 10/23/2023 16:05 [facility] HCT 53.5(H) 39.5 - 50.2 % 10/23/2023 16:05 [facility] MCV 94 81 - 95 fL 10/23/2023 16:05 [facility] MCH 31.5 27.6 - 33.0 pg 10/23/2023 16:05 [facility] MCHC 33.5 32.8 - 36.4 g/dL 10/23/2023 16:05 [facility] RDW-CV 14.3(H) <14.2 % 10/23/2023 16:05 [facility] RDW-SD 49.6(H) <46.0 fl 10/23/2023 16:05 [facility] PLT 171 141 - 377 K/cmm 10/23/2023 16:05 [facility] MPV 11.3 9.5 - 12.7 fL 10/23/2023 16:05 [facility] % Neutrophils 52.4 % 10/23/2023 16:05 [facility] % Lymphocytes 36.8 % 10/23/2023 16:05 [facility] % Monocytes 8.4 % 10/23/2023 16:05 [facility] % Eosinophils 0.7 % 10/23/2023 16:05 [facility] % Basophils 0.7 % 10/23/2023 16:05 [facility] % Immature Grans 1.0 % 10/23/20 16:05 [facility] Absolute Neutrophils 3.56 2.20 - 8.85 K/cmm 10/23/2023 16:05 [facility] Absolute Lymphocytes 2.50 1.09 - 3.30 K/cmm 10/23/2023 16:05 [facility] Absolute Monocytes 0.57 0.10 - 0.80 K/cmm 10/23/2023 16:05 [facility] Absolute Eosinophils 0.05 0.03 - 0.61 K/cmm 10/23/2023 16:05 [facility] ABS Basophils 0.05 0.01 - 0.11 K/cmm 10/23/2023 16:05 [facility] Absolute Immature Grans 0.07(H) 0.00 - 0.06 K/cmm 10/23/2023 16:05 [facility] Type of Differential: Auto 10/23/2023 16:05 [facility] Blood VENOUS BLOOD / Unknown Venipuncture / Unknown 10/23/2023 14:46 EST 10/23/2023 14:46 EST us Pradeep Yi MD PACKAGES & DNA PROBE ORDERABLES Final Result Performing Organization Address City/State/[facility] Co de Phone Number [facility] [address] [place] [address] documented in this encounter Visit Diagnoses Diagnosis Memory loss- Primary documented in this encounter Care Teams Senior Game Advisor Relationship Specialty Start Date End Date Rebeca Garcia PA [address] [place] [address] PCP - General 11/25/21 documented as of this encounter
--- OUTSIDE RECORDS SUMMARY | 2024-10-06 13:47 | XMS_ITS | Encounter Summary ---
Author Organization [facility] Address [address] [place] [address] Care Team Providers Care Evp Chief Exploration Officer Name Role Phone Rebeca Garcia Primary Care Provider + Encounter Details Date Type Department Care Team (Late st Contact Info) Description 09/07/2021 Lab Requisition [facility] Pathology & Laboratory Medicine - [facility] [address] [place] [address] Outr Resulting Lab, Provider Social History Tobacco [...] learn more about your health please visit: https://www.[email or web address]/medcenter/Pages/Wellness-Resources/Modmukpcm-Kqjqjt-Ns sourc e-Center.aspx LDL < 100 Result Component Hyperlipidemia 56( 0 12:18 EST) No Maggie Andrade LPN HEMOGLOBIN A1C < 7.0 Result Component Type 2 diabetes mellitus ([facility]) 7.7(12/30/19 20 12:18 EST) No Maggie Andrade LPN documented as of this encounter Procedures Procedure Name Priority Date/Time Associated Diagnosis Comments ZZCOVID-19 TEST [facility] PCR Today 09/06/2021 14:30 EDT COVID-19 TESTING Routine 09/06/2021 14:3 0 EDT documented in this encounter Results * COVID-19 TEST [facility] PCR (09/06/2021 14:30 EDT) Swab ENTIRE NASOPHARYNX / Unknown 09/06/2021 14:30 EDT 09/07/2021 16:09 EDT us Provider Outr Resulting Lab MICROBIOLOGY - GENER AL ORDERABLES Final Result [facility] [address] [place] [address] * COVID-19 TESTING (09/06/2021 14:30 EDT) COVID-19 rt-PCR Result Negative Negative 09/08/2021 21:[address] [facility] Comment: This test has [...] the authorization is terminated or revoked sooner. Negative results do not preclude 2019-nCoV infection and should not be used as the sole basis for treatment or other patient management decisions. Negative results must be combined with clinical observations, patient history, and epidemiological information. This test was developed and its performance characteristics determined by [facility]. It has not been cleared or approved by the US Food and Drug Administration. FDA does not require this test to go through premarket FDA review. This test is used for clinical purposes. It should not be regarded as investigational or for research. This laboratory is certified under the Clinical Laboratory Improvement Amendments (CLIA) as qualified to perform high complexity clinical laboratory testing. This test is based on the [facility] COVID-19 Emergency Use Authorization (EUA) assay, with minor modification as defined by the FDA Performed on the Starbuck[employer] 7 Pro RT-PCR System. Performing Lab Melina [facility] 09/08/2021 21:[address] [facility] Swab 09/06/2021 14:3 0 EDT 09/07/2021 16:09 EDT us Provider Outr Resulting Lab MICROBIOLOGY - GENER AL ORDERABLES Final Result [facility] [address] [place] [address] documented in this encounter Visit Diagnoses Not on filedocumented in this encounter Additional Health Concerns Infection Onset Date Last Indicated Resolved Time COVID-19 03/22/2022 03/22/2022 04/11/2022 22:1 5 EDT documented as of this encounter Care Teams Evp Chief Exploration Officer Relationship Specialty Start Date End Date Rebeca Garcia PA [address] [place] [id number] PCP - General 11/25/21 documented as of this encounter
--- OUTSIDE RECORDS SUMMARY | 2024-10-06 13:47 | XMS_ITS | Encounter Summary ---
Author Organization [facility] Address [address] [place] [address] Care Team Providers Care Flap Presser Name Role Phone Unavailable Primary Care Provider Unavailabl e Reason for Visit * Reason Onset Date Comments Patient Outreach 12/09/2020 Encounter Details Date Type Department Care Team (Late st Contact Info) Description 12/09/2020 Telephone [facility] Medicine [address] [address] Roxanna Hannah MD [address] [place] [address] [phone] Patient Outreach Social History Tobacco Use Types Packs/Day Years [...] Telephone Encounter - Maggie Andrade LPN - 12/09/2020 1834 EST Pt. Moved to [place], [place] and is no longer a pt. Here. Pt. Was called to schedule a DM, HTN f/u. documented in this encounter Plan of Treatment [...] learn more about your health please visit: https://[facility]org/medcenter/Pages/Wellness-Resources/Fgdfzimbk-Riazur-Fl sourc e-Center.aspx LDL < 100 Result Component Hyperlipidemia 56( 0 12:18 EST) No Maggie Andrade LPN HEMOGLOBIN A1C < 7.0 Result Component Type 2 diabetes mellitus ([facility]) 7.7(12/30/19 20 12:18 EST) No Maggie Andrade, ALE documented as of this encounter Visit Diagnoses Not on filedocumented in this encounter
--- OUTSIDE RECORDS SUMMARY | 2024-10-06 13:47 | XMS_ITS | Encounter Summary ---
Author Organization [facility] Address [address] [place] [address] Care Team Providers Care Insurance Inspector Name Role Phone Rebeca Garcia Primary Care Provider + Encounter Details Date Type Department Care Team (Late st Contact Info) Description 10/27/2021 Lab Requisition [facility] Pathology & Laboratory Medicine - [facility] [address] [place] [address] Outr Resulting Lab, Provider Social History Tobacco [...] learn more about your health please visit: https://www.[facility].org/medcenter/Pages/Wellness-Resources/Ytlzivtrx-Ndomat-Mg sourc e-Center.aspx LDL < 100 Result Component Hyperlipidemia 56( 0 12:18 EST) No Maggie Andrade LPN HEMOGLOBIN A1C < 7.0 Result Component Type 2 diabetes mellitus ([facility]) 7.7(12/30/19 20 12:18 EST) No Maggie Andrade LPN documented as of this encounter Procedures Procedure Name Priority Date/Time Associated Diagnosis Comments ZZCOVID-19 TEST [facility] PCR Today 10/26/2021 23:17 EST COVID-19 TESTING Routine 10/26/2021 23:1 7 EST documented in this encounter Results * COVID-19 TEST [facility] PCR (10/26/2021 23:17 EST) Swab 10/26/2021 23:1 7 EST 10/27/2021 18:04 EST us Provider Outr Resulting Lab MICROBIOLOGY - GENER AL ORDERABLES Final Result [facility] [address] [place] [address] * COVID-19 TESTING (10/26/2021 23:17 EST) COVID-19 rt-PCR Result Negative Negative 10/28/2021 16:45 EST [facility] Comment: This test has [...] developed and its performance characteristics determined by [facility]. It has not been cleared or [...] This test is based on the [facility] COVID-19 Emergency Use Authorization (EUA) assay, with minor modification as defined by the FDA Performed on the [employer] 7 Pro RT-PCR System. Performing Lab [facility] 10/28/2021 16:45 EST [facility] Swab 10/26/2021 23:1 7 EST 10/27/2021 18:04 EST us Provider Outr Resulting Lab MICROBIOLOGY - GENER AL ORDERABLES Final Result [facility] [address] [place] [address] documented in this encounter Visit Diagnoses Not on filedocumented in this encounter Additional Health Concerns Infection Onset Date Last Indicated Resolved Time COVID-19 03/22/2022 03/22/2022 04/11/2022 22:1 5 EDT documented as of this encounter Care Teams Insurance Inspector Relationship Specialty Start Date End Date Rebeca Garcia PA [address] [place] [phone] PCP - General 11/25/21 documented as of this encounter
--- OUTSIDE RECORDS SUMMARY | 2024-10-06 13:47 | XMS_ITS | Encounter Summary ---
Author Organization [facility] Address [address] [place] [address] Care Team Providers Care Clinical Pharmacy Coordinator Name Role Phone Rebeca Garcia Primary Care Provider + Encounter Details Date Type Department Care Team (Late st Contact Info) Description 08/16/2023 Lab Requisition [facility] Pathology & Laboratory Medicine - [facility] [address] [place] [address] Outr Resulting Lab, Provider Social History Tobacco [...] about your health please visit: https://www.[facility].org/medcenter/Pages/Wellness-Resources/Zddvuaxnu-Wwjknc-Id sourc e-Center.aspx LDL < 100 Result Component Hyperlipidemia 56( 0 12:18 EST) No Maggie Andrade LPN HEMOGLOBIN A1C < 7.0 Result Component Type 2 diabetes mellitus ([facility]) 7.7(12/30/19 20 12:18 EST) No Maggie Andrade LPN documented as of this encounter Procedures Procedure Name Priority Date/Time Associated Diagnosis Comments VALPROIC ACID LEVEL Routine 08/15/2023 1 5:50 EDT documented in this encounter Results * VALPROIC ACID LEVEL (08/15/2023 15:50 EDT) Valproic Acid 88 50 - 100 ug/mL 08/16/2023 17:57 EDT [facility] Blood VENOUS BLOOD / Unknown 08/15/2023 15:50 EDT 08/16/2023 17:39 EDT us Provider Outr Resulting Lab CHEMISTRY & BLOOD GA S ORDERABLES Final Result [facility] [address] [place] [address] documented in this encounter Visit Diagnoses Not on filedocumented in this encounter Care Teams Clinical Pharmacy Coordinator Relationship Specialty Start Date End Date Rebeca Garcia PA [address] [place] [id number] PCP - General 11/25/21 documented as of this encounter
--- OUTSIDE RECORDS SUMMARY | 2024-10-06 13:47 | XMS_ITS | Encounter Summary ---
Author Organization [facility] Address [address] [place] [address] Care Team Providers Care Wash Worker Name Role Phone Unknown, Provider Primary Care Provider Roxanna Jacome MD Primary Care Provider + Reason for Visit * Reason Comments Patient Outreach Encounter Details Date Type Department Care Team (Late st Contact Info) Description 06/02/[address] [phone] Unknown, Provider, MD Patient Outreach Social History Tobacco Use Types [...] Telephone Encounter - Maggie Andrade LPN - 06/02/2020 1118 EDT Pt. Called on 06/01 To cancel his televideo jorden't with Dr. Hannah. He stated that he will be transferring his care as he lives in the [facility] most of the time and wants to be able to be seencloser to home and in person. ----- Message from System sent at 05/30/2020 15:02 EDT ----- Regarding: Patient Outreach Telephone Communication Please communicate to the patient, via phone, regarding the health maintenance topics appended to this message. Dear Roxanna Pacheco and the rest of your care team here at No information on file. wish you a veryhappy birthday, and a healthy and happy year ahead! We hope you are doing well. Our records show you are due soon or overdue for the following health care services: Social Determinants of Health due on 1955EYE EXAM due on 1955Depression Screening due on 1968Preventive Visit due on 1974 SHINGLES IMMUNIZATION(3 of 3) due on 11/07/2018 Hemaglobin A1c Test due on 06/29/2020 Please call our office to set up an appointment when it???s convenient for you. If you have not scheduled your annual physical exam yet, this would be a great time to set that up. Our phone number isNo information on file.. We are happy to answer any questions you have and will work with you to find an appointment time that works well for you. Thank you for choosing us to be partners in your health. Best wishes, Your healthcare team at No information on file. documented in this encounter Plan of Treatment [...] learn more about your health please visit: https://www.[facility].org/medcenter/Pages/Wellness-Resources/Eriysvnks-Yrztow-Qm sourc e-Center.aspx LDL < 100 Result Component Hyperlipidemia 56( 0 12:18 EST) No Maggie Andrade LPN HEMOGLOBIN A1C < 7.0 Result Component Type 2 diabetes mellitus ([facility]) 7.7(12/30/19 20 12:18 EST) No Maggie Andrade LPN documented as of this encounter Visit Diagnoses Not on filedocumented in this encounter Care Teams Wash Worker Relationship Specialty Start Date End Date Unknown, Provider, PCP - General 06/01/20 09/11/20 Roxanna Hannah MD [address] [place] [phone] PCP - General Family Medicine - Primary Care 09/12/20 12/08/20 documented as of this encounter
--- OUTSIDE RECORDS SUMMARY | 2024-10-06 13:47 | XMS_ITS | Clinical Summary ---
Author Organization [facility] Address [address] [place] [address] Care Team Providers Care Powder Coater Name Role Phone Rebeca Garcia Primary Care Provider + Allergies Active Allergy Reactions Criticality Noted Date Comments Carbamazepine Rash 08/25/2009 Phenytoin Sodium Extended 03/03/2019 [place] like a zombie. Lisinopril 03/03/2019 Depression Medications MULTIVITAMINS (MULTI-VITAMIN ORAL) Take 1 Tab by mouth daily. Active aspirin 81 mg EC tablet Take 1 Tablet by mouth daily. Active acetaminophen (TYLENOL) 650 mg tablet Take 1 Tab by mouth every 4 hours as needed for Pain. 2 Active omeprazole (PRILOSEC) 20 mg capsule TAKE 1 CAPSULE DAILY 90 Cap 3 3 Active fluticasone (FLONASE) 50 mcg/actuation nasal spray Instill 2 Sprays into both nostrils daily. 16 g 2 3 Active Additional Information Patient taking differently:100 mcg nasal - bothAs needed, Reported on 11/05/2023 TURMERIC ORAL Take 1 Capsule by mouth daily. Active amLODIPine (NORVASC) 5 mg tabletIndication s:Hypertension, unspecified type Take 0.5 Tabs by mouth daily. 90 Tab 4 0 Active atorvastatin (LIPITOR) 40 mg tablet Take 1 Tab by mouth daily. 90 Tab 4 0 Active divalproex (DEPAKOTE) 500 mg delayed release tablet take 3 tablets by mouth once daily at bedtime 270 Tab 3 0 Active metFORMIN (GLUCOPHAGE) 500 mg tablet TAKE 2 TABLETS BY MOUTH TWICE A DAY WITH BREAKFAST AND DINNER 360 Tab 1 Active Additional Information Patient taking differently: 500 mg oral 2 TIMES DAILY, Reported on 11/05/2023 canagliflozin (INVOKANA) 100 mg tablet 0 Refill(s) 3 Active losartan (COZAAR) 100 mg tablet Take 1 Tablet by mouth daily. Active [place] Oil oil Take by mouth daily. Active Active Problems Patient Care Coordination No te Formatting of this note migh t be different from the original. [facility] Memory Program BEATRIS scanned to [facility] on: 2023-11-05 Problem Noted Date Diagnosed Date Tinnitus 10/28/2023 Tubular adenoma of colon 10/21/2017 Overview (10/21/2017): High grade dysplasia 09/[address] Kan [facility] Obesity 12/27/2014 Hydrocele 03/10/2014 Polyarthropathy 11/06/2012 Type 2 diabetes mellitus ([facility]) 12/12/2011 Depression 10/30/2011 Anxiety 10/30/2011 Atypical chest pain 07/30/2007 Overview (05/31/2023): A. Admission in [facility] on 04/27/2007. Ruled out IN and negative stress test at that time Allergic rhinitis 03/19/2007 Hyperlipidemia 01/31/2005 Hypertension 10/24/2004 Seizure disorder ([facility]) 08/05/2002 Overview (10/27/2012): Nocturnal grand mal F/U W. Dr. Herrera Gastroesophageal reflux disease 08/05/2002 Erectile dysfunction Resolved Problems Problem Noted Date Diagnosed Date Resolved Date Change in bowel habit 05/31/2023 05/31/20232022 Impaired glucose tolerance 10/03/2011 0 04/29/2018 Abnormal glucose tolerance test 03/09/2009 04/10/2016 Routine history and physical examination of adult 08/05/2002 11/05/2023 Immunizations Name Administration Dates Next Due DT Vaccine <7YO IM 09/25/1999 Historical Influenza Vaccine, Unspecified 2019 Influenza (whole) 08/24/2009 Influenza Vaccine =>3yo Split IM 09/28/2015,08/26 Influenza Vaccine =>3yo Spli t Preservative Free IM 10/27/2013,09/03/2012,01/16/2011 Influenza Vaccine Quad (AFLU RISHI) PF 0.5 ml IM (3 yrs+) 10/24/2016 Pneumococcal Polysaccharide (PPSV23) Vaccine (PNEUMOVAX-23) =>2YO SQ/IM 08/11/2018 Shingrix (Zoster Vaccine, Recombinant) IM 2017 Tdap Vaccine =>7YO IM 07/11/2011 Zostavax (Zoster Vaccine, Live) SQ 03/05/2017 Surgical History Surgery Date Site/Laterality Comments CHOLECYSTECTOMY R shoulder yael Dr. Terence Barrera A SHOULDER SURGERY s/p dislocation SHOULDER ARTHROPLASTY 10/25/2012 left HYDROCELE EXCISION 02/23/2014 Dr. Canales Medical History Medical History Date Comments Erectile dysfunction Abnormal glucose tolerance test 03/09/2009 Allergic rhinitis 03/19/2007 Hyperlipidemia 01/31/2005 Essential hypertension 10/24/2004 Seizure disorder ([facility]) 08/05/2002 Rout[facility] 08/05/2002 GERD (gastroesophageal reflux disease) 2 Seizures ([facility]) Impaired glucose tolerance 10/03/2011 Type 2 diabetes mellitus wit hout complication, without long-term current use of insulin ([facility]) Depression Change in bowel habit 05/31/2023 Routine history and physical examination of [facility] t 08/05/2002 Family History Medical History Relation Comments Stroke Father Breast Cancer Neg Hx Colon Cancer Neg Hx Colon Polyps Neg Hx Endometrial Cancer Neg Hx Esophageal Cancer Neg Hx Ovarian Cancer Neg Hx Pancreatic Cancer Neg Hx Rectal Cancer Neg Hx Stomach Cancer Neg Hx Relation Status Comments Father Social History Tobacco Use Types Packs/Day Years [...] 13:46 EST Sexual Orientation Not on file Obstetrics History Last Filed Vital Signs Vital Sign Reading Time Taken Comments Blood Pressure 130/84 01/13/2020 0853 EST Pulse 78 01/13/2020 0853 EST Temperature 35.9 ??C (96.7 ??F) 01/13/2020 0853 EST Respiratory Rate 16 10/21/2017 1259 EST Oxygen Saturation 97% 11/05/2023 1252 EST Inhaled Oxygen Concentration - - Weight 114.8 kg (253 lb) 11/05/2023 1252 EST Height 174 cm (5' 8.5) 01/13/2020 0853 EST Body Mass Index 37.9 01/13/2020 0853 EST Plan of Treatment Health Maintenance Due Date Last Done Comments Eye Exam 1956 Social Determinants Of Healt h (SDOH) 1956 Depression Screening 1968 Preventive Care Visit 1974 Cologuard (Colon Cancer Screening) 2001 FIT Test (Colon Cancer Screening) 2001 Sigmoidoscopy (Colon Cancer Screening) 2001 RSV Immunization ( o r 60+ Years) (1 - Risk 60-74 years 1-dose series) 2016 Shingles Immunization (3 of 3) 11/07/2018 09/12/2018 , 03/05/2017 Pneumococcal Immunization (6 5+) (2 of 2 - PCV) 08/11/2019 08/11/2018 Hemoglobin A1C (Ha1C) 06/29/2020 12/30/2019 , 03/03/2019, 08/11/2018, Additional history exists Foot Exam 12/30/2020 12/30/2019, 08/11/2018 Lipid Profile Screening (Cholesterol) 12/30/2020 12/30/2019, 04/25/2018, 03/05/2017, Additional history exists Microalbumin/Creatinine Ratio 12/30/2020, 04/29/2018, 08/24/2009 Tetanus (Adult) Immunization 07/11/2021 07/11/2011, 09/25/1999 Colonoscopy (Colon Cancer Screening) 05/12/2022 05/12/2019, 01/15/2018, 10/31/2017, Additional history exists Colorectal Cancer Screening 05/12/2022 Advance Directive Review 04/29/2023 COVID-19 Vaccine (5 - 4-2 5 season) 2024 08/03/2022, 10/04/2021, 03/21/2021, Additional history exists Influenza Immunization (Adul t) (#1) 2024 11/25/2019, 10/24/2016, 09/28/2015, Additional history exists Creatinine (Kidney Test) 10/23/2024 023, 12/30/2019, 03/03/2019, Additional history exists Fall Risk Screening 11/05/2024 11/05/2023 Pertussis (Adult) Immunization Completed 07/11/2011 Hepatitis C Screen Completed 03/05/2017 Goals Goal Patient Goal Type Associated Problems [...] learn more about your health please visit: [email or web address]/medcenter/Pages/Wellness-Resources/Jpxhlchry-Pawfuy-Ep [facility] e-Center.aspx LDL < 100 Result Component Hyperlipidemia 56( 0 12:18 EST) No Maggie Andrade LPN HEMOGLOBIN A1C < 7.0 Result Component Type 2 diabetes mellitus ([facility]) 7.7(12/30/19 20 12:18 EST) No [place], Maggie, APPLICATIONS DEVELOPER Procedures Procedure Name Priority Date/Time Associated Diagnosis Comments COMPREHENSIVE METABOLIC PANEL (CMP) Routine 10/23/2023 14:46 EST Memory loss URINE BAOZNIS-XH-DAOBUBBYIF RATIO (ACR) Routine 12/30/2019 12:19 EST Type 2 diabetes mellitus without complication, without long-term current use of insulin ([facility]) HEMOGLOBIN A1C Routine 12/30/2019 12:18 EST Type 2 diabetes mellitus without complication, without long-term current use of insulin ([facility]) LIPID PROFILE (INCLUDES CHOLESTEROL, TRIGLYCERIDES, HDL, LDL) Routine 12/30/2019 12:18 EST Other hyperlipidemia COLONOSCOPY PROCEDURE Routine 05/12/2019 HEPATITIS C AB W REFLEX TO HCV RNA BY PCR Routine 03/05/2017 12:20 EDT Need for hepatitis C screening test from Last 3 Months or Most Recently Relevant to Health Maintenance Results * (ABNORMAL) COMPREHENSIVE METABOLIC PANEL (CMP) (10/23/2023 14:46 EST) Sodium 143 136 - 145 mmol/L 10/23/2023 16:49 [facility] Potassium 4.4 3.5 - 5.0 mmol/L 10/23/2023 16:49 [facility] Chloride 104 96 - 110 mmol/L 10/23/2023 16:49 [facility] CO2 Total 27 22 - 32 mmol/L 10/23/2023 16:49 [facility] Glucose 105(H) 70 - 99 mg/dl 10/23/2023 16:49 [facility] BUN 21 10 - 26 mg/dL 10/23/2023 16:49 [facility] Creatinine 0.84 0.66 - 1.25 mg/dL 10/23/2023 16:49 [facility] eGFR 96 >60 mL/min/1.7 3m2 10/23/2023 16:49 [facility] Total Protein 7.6 6.3 - 8.2 g/dL 10/23/2023 16:49 [facility] Albumin 4.6 3.4 - 4.9 g/dL 10/23/2023 16:49 [facility] Alkaline Phosphatase 66 38 - 126 U/L 10/23/2023 16:49 [facility] AST 30 15 - 46 U/L 10/23/2023 16:49 [facility] ALT 35 <50 U/L 10/23/2023 16:49 [facility] Bilirubin, Total 0.6 <1.4 mg/dL 10/23/20 16:49 [facility] Calcium 9.9 8.5 - 10.5 mg/dL 10/23/2023 16:49 [facility] Albumin/Globulin Ratio 1.5 1.0 - 2.5 g/dL 10/23/2023 16:49 [facility] Anion Gap 12 5 - 14 mmol/L 10/23/2023 16:49 [facility] Blood VENOUS BLOOD / Unknown Venipuncture / Unknown 10/23/2023 14:46 EST 10/23/2023 14:46 EST Pradeep Yi MD CHEMISTRY & BLOOD GAS ORDERABLE S Final Result [facility] [address] [place] [address] * ALBUMIN, URINE (12/30/2019 12:19 EST) Albumin, Urine <0.6 See Note mg/dL 2019 18:48 [facility] Comment: NOTE: Reference range not established Creatinine, Urine 104.7 See Note mg/dL 12/30/2019 18:48 [facility] Comment: NOTE: Reference range not established Lab Urine Albumin to Creatinine Ratio <6 <30 ug/mg Creatinine 12/30/2019 18:48 [facility] Comment: Urine Albumin/Creatinine Ratio: Normal: <30 ug/mg Creatinine Moderately increased albuminuria: 30-30 ug/mg Creatinine Daxaley increased albuminuria: >300 ug/mg Creatinine Urine URINE SPECIMEN OBTAINED BY CLEAN CATCH PROCEDURE / Unknown Urine Collect / Unknown 12/30/2019 12:19 EST 12/30/2019 12:19 EST Roxanna Hannah MD CHEMISTRY & BLOOD GAS OR DERABLES Final Result Performing Organization Address [facility] de Phone Number [facility] [address] [place] [address] * (ABNORMAL) HEMOGLOBIN A1C (12/30/2019 12:18 EST) Hemoglobin A1c 7.7(H) <5.7 % 12/31/2019 9:[address] [facility] Comment: Glycemic Status References: Normal: ??<5.7% Pre-Diabetes: ??5.7% - 6.4% Diagnostic of Diabetes: ??> or = 6.5% (if confirmed) Goals for glycemic control in diabetics (ADA 2017): <7.0% target for non adults with diabetes. <7.5% target for children and adolescents with Type I Diabetes. More or less stringent targets may be appropriate for individual patients. Est Avg Glucose 174 mg/dL 0 9:[address] [facility] Comment: The eAG represents the A1c result expressed as average glucose in mg/dL. Blood VENOUS BLOOD / Unknown Venipuncture / Unknown 12/30/2019 12:18 EST 12/30/2019 12:19 EST Roxanna Hannah MD CHEMISTRY & BLOOD GAS OR DERABLES Final Result Performing Organization Address [facility] Co de Phone Number [facility] [address] [place] [address] * LIPID PROFILE (INCLUDES CHOLESTEROL, TRIGLYCERIDES, HDL, LDL) (12/30/2019 12:18 EST) Cholesterol 116 See Note mg/dL 12/30/2019 18:03 [facility] Comment: Acceptable: ?<200 mg/dL Borderline High: 200-239 mg/dL High: ?> or = 240 mg/dL HDL 25 See Note mg/dL 12/30/2019 18:03 [facility] Comment: Low: ? <40 mg/dL Normal: ??40-60 mg/dL High: ?>60 mg/dL LDL, Calculated 56 See Note mg/dL 12/30/2019 18:03 [facility] Comment: Optimal: ? <100 mg/dL Near Optimal: ?100-129 mg/dL Borderline High: 130-159 mg/dL High: ?160-189 mg/dL Very High: ? > or = 190 mg/dL Triglyceride 177 See Note mg/dL 12/30/2019 18:03 [facility] Comment: Normal: ? <150 mg/dL Borderline High: ??150 - 199 mg/dL High: ? 200 - 499 mg/dL Very High: ?> or = 500 mg/dL Chol/HDL Ratio 4.6 See Note 12/30/2019 18:03 [facility] Comment: No reference range has been established for CHOL/HDL ratio. Non HDL Cholesterol 91 See Note mg/dL 12/30/2019 18:03 [facility] Comment: Desirable: ?<130 mg/dL Borderline High: ??130-159 mg/dL High: ? 160-189 mg/dL Very High: ?> or = 190 mg/dL Blood VENOUS BLOOD / Unknown Venipuncture / Unknown 12/30/2019 12:18 EST 12/30/2019 12:19 [facility] - 12/30/2019 18:03 EST 3 Roxanna Hannah MD CHEMISTRY & BLOOD GAS OR DERABLES Final Result Performing Organization Address City/[facility] Co de Phone Number [facility] [address] [place] [address] * COLONOSCOPY PROCEDURE (05/12/2019) Colonoscopy [facility] Colonoscopy, External [facility] Comment:The cecum, ascending , transverse, descending, sigmoid colon and rectum all appeared normal. No abnormalities in the rectum. Return for colonoscopy in 3 years or as needed for any changes. Anatomical Region Laterality Modality Endoscopy 05/12/2019 Historical Provider GI PROCEDURE ORDERABLES F inal Result * HEPATITIS C AB W REFLEX TO HCV RNA BY PCR (03/05/2017 12:20 EDT) Hep C Ab w Rfx PCR Negative Negative 03/06/2017 10:[address] [facility] Comment:Reference Range: Neg ative Blood specimen (specimen) BLOOD SPECIMEN / Unknown 03/05/2017 12:20 EDT 03/05/2017 18:54 EDT Roxanna Hannah MD CHEMISTRY & BLOOD GAS OR DERABLES Final Result Performing Organization Address City/[facility] Co de Phone Number [facility] [address] [place] [address] from Last 3 Months or Most Recently Relevant to Health Maintenance Insurance [employer] Advance Directives For more information, please contact: [phone] Documents on File Type Date Recorded Patient Rfid Systems Architect Expl anation Advance Directive 04/29/2018 14:58 * Full Code (Latest Code Status on File) Date Activated Date Inactivated Comments 03/10/2014 10:34 03/10/2014 15:25 * Full Code Date Activated Date Inactivated Comments 11/06/2012 15:04 11/07/2012 14:58 Care Teams Powder Coater Relationship Specialty Start Date End Date Rebeca Garcia PA [address] [place] [id number] PCP - General 11/25/21
--- OUTSIDE RECORDS SUMMARY | 2024-10-06 13:47 | XMS_ITS | Encounter Summary ---
Author Organization [facility] Address [address] [place] [address] Care Team Providers Care Promotions Producer Name Role Phone Rebeca Garcia Primary Care Provider + Encounter Details Date Type Department Care Team (Late st Contact Info) Description 10/23/2023 14:40 EST Phlebotomy Only [facility] Laboratory Services [facility] ([facility]) [address] [place] [address] [phone] Memory loss Social History Tobacco Use Types Packs/Day Years [...] learn more about your health please visit: https://www.[facility].org/medcenter/Pages/Wellness-Resources/Eeurtidpv-Xpjmfr-Su sourc e-Center.aspx LDL < 100 Result Component Hyperlipidemia 56( 0 12:18 EST) No Maggie Andrade LPN HEMOGLOBIN A1C < 7.0 Result Component Type 2 diabetes mellitus ([facility]) 7.7(12/30/19 20 12:18 EST) No Maggie Andrade LPN documented as of this encounter Procedures Procedure Name Priority Date/Time Associated Diagnosis Comments SYPHILIS SEROLOGY Routine 10/23/2023 14: 46 EST Memory loss COMPLETE BLOOD COUNT AND DIFFERENTIAL Routine 10/23/2023 14:46 EST Memory loss TSH Routine 10/23/2023 14:46 EST Memory loss VITAMIN B12 Routine 10/23/2023 14:46 EST Memory loss COMPREHENSIVE METABOLIC PANEL (CMP) Routine 10/23/2023 14:46 EST Memory loss documented in this encounter Results * VITAMIN B12 (10/23/2023 14:46 EST) Vitamin B12 898 211 - 911 pg/mL 10/23/2023 18:31 EST [facility] Blood VENOUS BLOOD / Unknown Venipuncture / Unknown 10/23/2023 14:46 EST 10/23/2023 14:46 EST Pradeep Yi MD CHEMISTRY & BLOOD GAS ORDERABLE S Final Result Performing Organization Address [facility] Co de Phone Number [facility] [address] [place] [address] * TSH (10/23/2023 14:46 EST) Pathologist [facility] TSH 1.67 0.47 - 4.68 mIU/L 10/23/2023 17:24 EST [facility] Blood VENOUS BLOOD / Unknown Venipuncture / Unknown 10/23/2023 14:46 EST 10/23/2023 14:46 EST Narrative [facility] - 10/23/2023 17:24 EST The results of this assay can be falsely lowered due to the consumption of Biotin. Pradeep Yi MD CHEMISTRY & BLOOD GAS ORDERABLE S Final Result Performing Organization Address [facility] Co de Phone Number [facility] [address] [place] [address] * SYPHILIS SEROLOGY (10/23/2023 14:46 EST) Pathologist [facility] Syphilis Serology Negative Negative 10/24/2023 10:22 EST [facility] Blood VENOUS BLOOD / Unknown Venipuncture / Unknown 10/23/2023 14:46 EST 10/23/2023 14:46 EST Pradeep Yi MD IMMUNOLOGY AND SEROLOGY ORDERAB LES Final Result [facility] [address] [place] [address] * (ABNORMAL) COMPREHENSIVE METABOLIC PANEL (CMP) (10/23/2023 14:46 EST) Sodium 143 136 - 145 mmol/L 10/23/2023 16:49 [facility] Potassium 4.4 3.5 - 5.0 mmol/L 10/23/2023 16:49 [facility] Chloride 104 96 - 110 mmol/L 10/23/2023 16:49 [facility] CO2 Total 27 22 - 32 mmol/L 10/23/2023 16:49 [facility] Glucose 105(H) 70 - 99 mg/dl 10/23/2023 16:49 [facility] BUN 21 10 - 26 mg/dL 10/23/2023 16:49 [facility] Creatinine 0.84 0.66 - 1.25 mg/dL 10/23/2023 16:49 [facility] eGFR 96 >60 mL/min/1.7 3m2 10/23/2023 16:49 [facility] Total Protein 7.6 6.3 - 8.2 g/dL 10/23/2023 16:49 [facility] Albumin 4.6 3.4 - 4.9 g/dL 10/23/2023 16:49 [facility] Alkaline Phosphatase 66 38 - 126 U/L 10/23/2023 16:49 [facility] AST 30 15 - 46 U/L 10/23/2023 16:49 [facility] ALT 35 <50 U/L 10/23/2023 16:49 [facility] Bilirubin, Total 0.6 <1.4 mg/dL 10/23/20 16:49 [facility] Calcium 9.9 8.5 - 10.5 mg/dL 10/23/2023 16:49 [facility] Albumin/Globulin Ratio 1.5 1.0 - 2.5 g/dL 10/23/2023 16:49 [facility] Anion Gap 12 5 - 14 mmol/L 10/23/2023 16:49 [facility] Blood VENOUS BLOOD / Unknown Venipuncture / Unknown 10/23/2023 14:46 EST 10/23/2023 14:46 EST us Pradeep Yi MD CHEMISTRY & BLOOD GAS ORDERABLE S Final Result [facility] [address] [place] [address] * (ABNORMAL) COMPLETE BLOOD COUNT AND DIFFERENTIAL (10/23/2023 14:46 EST) WBC 6.80 4.00 - 10.40 K/cmm 10/23/2023 16:05 [facility] RBC 5.68 4.36 - 5.78 M/cmm 10/23/2023 16:05 [facility] Hemoglobin 17.9(H) 13.8 - 17.3 g/dL 10/23/2023 16:05 [facility] HCT 53.5(H) 39.5 - 50.2 % 10/23/2023 16:05 [facility] MCV 94 81 - 95 fL 10/23/2023 16:05 [facility] MCH 31.5 27.6 - 33.0 pg 10/23/2023 16:05 [facility] MCHC 33.5 32.8 - 36.4 g/dL 10/23/2023 16:05 [facility] RDW-CV 14.3(H) <14.2 % 10/23/2023 16:05 [facility] RDW-SD 49.6(H) <46.0 fl 10/23/2023 16:05 [facility] PLT 171 141 - 377 K/cmm 10/23/2023 16:05 [facility] MPV 11.3 9.5 - 12.7 fL 10/23/2023 16:05 [facility] % Neutrophils 52.4 % 10/23/2023 16:05 [facility] % Lymphocytes 36.8 % 10/23/2023 16:05 [facility] % Monocytes 8.4 % 10/23/2023 16:05 [facility] % Eosinophils 0.7 % 10/23/2023 16:05 [facility] % Basophils 0.7 % 10/23/2023 16:05 [facility] % Immature Grans 1.0 % 10/23/20 16:05 [facility] Absolute Neutrophils 3.56 2.20 - 8.85 K/cmm 10/23/2023 16:05 [facility] Absolute Lymphocytes 2.50 1.09 - 3.30 K/cmm 10/23/2023 16:05 [facility] Absolute Monocytes 0.57 0.10 - 0.80 K/cmm 10/23/2023 16:05 [facility] Absolute Eosinophils 0.05 0.03 - 0.61 K/cmm 10/23/2023 16:05 [facility] ABS Basophils 0.05 0.01 - 0.11 K/cmm 10/23/2023 16:05 [facility] Absolute Immature Grans 0.07(H) 0.00 - 0.06 K/cmm 10/23/2023 16:05 [facility] Type of Differential: Auto 10/23/2023 16:05 [facility] Blood VENOUS BLOOD / Unknown Venipuncture / Unknown 10/23/2023 14:46 EST 10/23/2023 14:46 EST us Pradeep Yi MD PACKAGES & DNA PROBE ORDERABLES Final Result [facility] [address] [place] [address] documented in this encounter Visit Diagnoses Diagnosis Memory loss documented in this encounter Care Teams Promotions Producer Relationship Specialty Start Date End Date Rebeca Garcia PA [address] [place] [phone] PCP - General 11/25/21 documented as of this encounter
--- OUTSIDE RECORDS SUMMARY | 2024-10-06 13:47 | XMS_ITS | Encounter Summary ---
Author Organization [facility] Address [address] [place] [address] Care Team Providers Care Orthodontic Treatment Coordinator Name Role Phone Rebeca Garcia Primary Care Provider + Reason for Visit * (Routine/Next Available) - Receiving Office to Obtain Authorization Specialty Diagnoses / Procedures Referred By Nela bravo Referred To Contact Procedures MR OUTSIDE IMAGES HEAD Unknown, Provider, MD Referral ID Status Reason Start Date Expiration Date Visits Requested Visits Authorized [id number] Receiving Office to Obtain Authorization 05/15/2023 1 1 Encounter Details Date Type Department Care Team (Latest Contact Info) Description 05/10/2023 - 05/10/2023 23:59 EDT Hospital Encounter [facility] Secondary Reads [place] Discharge Disposition: Home or Self Care Social History Tobacco Use Types Packs/Day Years [...] Aj Vaishali dunnrena documented in this encounter Medications at Time of Discharge acetaminophen (TYLENOL) 650 mg tablet Take 1 Tab by mouth every 4 hours as needed for Pain. 11/07/2012 amLODIPine (NORVASC) 5 mg tabletIndications :Hypertension, unspecified type Take 0.5 Tabs by mouth daily. 90 Tab 4 01/13/2020 aspirin 81 mg EC tablet Take 1 Tablet by mouth daily. atorvastatin (LIPITOR) 40 mg tablet Take 1 Tab by mouth daily. 90 Tab 4 01/13/2020 canagliflozin (INVOKANA) 100 mg tablet 0 Refill(s) 11/29/2022 divalproex (DEPAKOTE) 500 mg delayed release tablet take 3 tablets by mouth once daily at bedtime 270 Tab 3 01/13/2020 fluticasone (FLONASE) 50 mcg/actuation nasal spray Instill 2 Sprays into both nostrils daily. 16 g 2 10/27/2013 metFORMIN (GLUCOPHAGE) 500 mg tablet TAKE 2 TABLETS BY MOUTH TWICE A DAY WITH BREAKFAST AND DINNER 360 Tab 11/28/2020 MULTIVITAMINS (MULTI-VITAMIN ORAL) Take 1 Tab by mouth daily. omeprazole (PRILOSEC) 20 mg capsule TAKE 1 CAPSULE DAILY 90 Cap 3 10/27/2013 TURMERIC ORAL Take 1 Capsule by mouth daily. cinnamon bark (CINNAMON ORAL) Take 1 Capsule by mouth daily. 3 DOCOSAHEXANOIC ACID/EPA (FISH OIL ORAL) Take 1 Capsule by mouth daily 3 hydroCHLOROthiazi de (HYDRODIURIL) 25 mg tablet take 1 tablet by mouth once daily 90 Tab 1 09/13/2020 3 documented as of this encounter Discharge Disposition Disposition Code Departure Means Destination Home or Self Care documented in this encounter Plan of Treatment [...] learn more about your health please visit: https://www.[facility].org/medcenter/Pages/Wellness-Resources/Ezgujmxzj-Rmvihk-Ov sourc e-Center.aspx LDL < 100 Result Component Hyperlipidemia 56( 0 12:18 EST) No Maggie Andrade LPN HEMOGLOBIN A1C < 7.0 Result Component Type 2 diabetes mellitus ([facility]) 7.7(12/30/19 20 12:18 EST) No Maggie Andrade LPN documented as of this encounter Procedures Procedure Name Priority Date/Time Associated Diagnosis Comments MR OUTSIDE IMAGES HEAD Routine 05/10/2023 18:24 EDT documented in this encounter Results * MR OUTSIDE IMAGES HEAD (05/10/2023 18:24 EDT) Narrative 05/15/2023 18:24 EDT This is a non-reportable exam. us Provider Unknown MD CARBALLO OTHER IMAGING ORDERABLES Final Result documented in this encounter Visit Diagnoses Not on filedocumented in this encounter Care Teams Orthodontic Treatment Coordinator Relationship Specialty Start Date End Date Rebeca Garcia PA [address] [place] [phone] PCP - General 11/25/21 documented as of this encounter
--- OUTSIDE RECORDS SUMMARY | 2024-10-06 13:47 | XMS_ITS | Encounter Summary ---
Author Organization [facility] [place] [facility] Address [address] [place] [address] Care Team Providers Care Metal Furniture Glazier Name Role Phone Rebeca Garcia Primary Care Provider + Encounter Details Date Type Department Care Team (Late st Contact Info) Description 12/15/2020 Lab Requisition [facility] Pathology & Laboratory Medicine - [facility] [address] [place] [address] Outr Resulting Lab, Provider Social History Tobacco [...] learn more about your health please visit: https://www.[facility].org/medcenter/Pages/Wellness-Resources/Dhigzivev-Rxieqd-Cs sourc e-Center.aspx LDL < 100 Result Component Hyperlipidemia 56( 0 12:18 EST) No Maggie Andrade LPN HEMOGLOBIN A1C < 7.0 Result Component Type 2 diabetes mellitus ([facility]) 7.7(12/30/19 20 12:18 EST) No Maggie Andrade LPN documented as of this encounter Procedures Procedure Name Priority Date/Time Associated Diagnosis Comments ZZCOVID-19 TEST [facility] PCR Today 12/15/2020 9:00 EST COVID-19 TESTING Routine 12/15/2020 9:00 EST documented in this encounter Results * COVID-19 TEST [facility] PCR (12/15/2020 9:00 EST) Swab ENTIRE NASOPHARYNX / Unknown 12/15/2020 9:00 EST 12/15/2020 20:27 EST us Provider Outr Resulting Lab MICROBIOLOGY - GENER AL ORDERABLES Final Result Performing Organization Address [facility] Co de Phone Number [facility] [address] [place] [address] * COVID-19 TESTING (12/15/2020 9:00 EST) COVID-19 rt-PCR Result Negative Negative 12/16/2020 16:17 EST [facility] Comment: Negative results do not preclude 2019-nCoV infection and should not be used as the sole basis for treatment or other patient management decisions. Negative results must be combined with clinical observations, patient history, and epidemiological information. This test was developed and its performance characteristics determined by [facility]. It has not been cleared or approved [...] testing. This test is based on the CDC COVID-19 Emergency Use Authorization (EUA) assay, with minor modification as defined by the FDA Performed on the [employer] 7 Flex RT-PCR System. Performing Lab [facility] 12/16/2020 16:17 EST [facility] Swab 12/15/2020 9:00 EST 12/15/2020 20:27 EST us Provider Outr Resulting Lab MICROBIOLOGY - GENER AL ORDERABLES Final Result Performing Organization Address City/[facility] Co de Phone Number [facility] [address] [place] [address] documented in this encounter Visit Diagnoses Not on filedocumented in this encounter Additional Health Concerns Infection Onset Date Last Indicated Resolved Time COVID-19 03/22/2022 03/22/2022 04/11/2022 22:1 5 EDT documented as of this encounter Care Teams Metal Furniture Glazier Relationship Specialty Start Date End Date Rebeca Garcia PA [address] [place] [phone] PCP - General 11/25/21 documented as of this encounter
--- OUTSIDE RECORDS SUMMARY | 2024-10-06 13:47 | XMS_ITS | Encounter Summary ---
Author Organization [facility] Address [address] [place] [address] Care Team Providers Care Sludge Control Operator Name Role Phone Roxanna Hannah MD Primary Care Provider + Reason for Visit * Reason Comments Excisional Biopsy Pt reports for jacquelin Bx on right jew. Encounter Details Date Type Department Care Team (Late st Contact Info) Description 01/13/2020 9:15 EST Office Visit [address] [address] Roxanna Hannah MD [address] [place] [address] [phone] Skin lesion of face (Primary Dx); Hypertension, unspecified type Social History Tobacco Use Types Packs/Day Years Used Date Smoking Tobacco: Never Smokeless Tobacco: Never Tobacco Cessation:Counseling Given: Yes Alcohol Use Standard Drinks/Week Comments Yes 0 [...] (96.7 ??F) 01/13/2020 0853 EST Respiratory Rate - - Oxygen Saturation - - Inhaled Oxygen Concentration - - Weight 114.8 kg (253 lb) 01/13/2020 0853 EST Height 174 cm (5' 8.5) 01/13/2020 [...] EST Vaishali Rocha documented in this encounter Ordered Prescriptions Prescription Sig Dispense Quantity Refills Last Filled Start Date End Date divalproex (DEPAKOTE) 500 mg delayed release tablet take 3 tablets by mouth once daily at bedtime 270 Tab 3 01/13/2020 atorvastatin (LIPITOR) 40 mg tablet Take 1 Tab by mouth daily. 90 Tab 4 01/13/2020 amLODIPine (NORVASC) 5 mg tabletIndications: Hypertension, unspecified type Take 0.5 Tabs by mouth daily. 90 Tab 4 01/13/2020 metFORMIN (GLUCOPHAGE) 500 mg tablet Take 2 Tabs by mouth 2 times daily with breakfast and dinner. 360 Tab 01/13/2020 1 documented in this encounter Progress Notes * Roxanna Hannah MD - 01/13/2020 0915 EST Shave Biopsy Procedure Note Pre-operative Diagnosis: Suspicious lesion Post-operative Diagnosis: same Locations:right jew Indications: concern for SCC or BCC Anesthesia: Lidocaine 2% with epinephrine without added sodium bicarbonate Procedure Details History of allergy to iodine: no Patient informed of the risks (including bleeding and infection) and benefits of the procedure and Written informed consent obtained. Final verification done The lesion and surrounding area were given a sterile prep using betadyne and draped in the usual sterile fashion. A flexible dermablade was used to shave an area of skin approximately 8mm by 1cm. Hemostasis achieved with alumuninum chloride. Antibiotic ointment and a sterile dressing applied. The specimen was sent for pathologic examination. The patient tolerated the procedure well. EBL: <2 ml Condition: Stable Complications: none. Plan: 1. Instructed to keep the wound dry and covered for 24-48h and clean thereafter. 2. Warning signs of infection were reviewed. 3. Recommended that the patient use OTC analgesics as needed for pain. 4. Keep dressing clean and dry for 24 hours documented in this encounter Plan of Treatment [...] learn more about your health please visit: https://www.[facility].org/medcenter/Pages/Wellness-Resources/Ufvzpjaqj-Niubkm-Zx sourc e-Center.aspx LDL < 100 Result Component Hyperlipidemia 56( 0 12:18 EST) No Maggie nAdrade LPN HEMOGLOBIN A1C < 7.0 Result Component Type 2 diabetes mellitus ([facility]) 7.7(12/30/19 20 12:18 EST) No Maggie Andrade LPN documented as of this encounter Procedures Procedure Name Priority Date/Time Associated Diagnosis Comments SURGICAL PATHOLOGY Routine 01/13/2020 10 :04 EST Skin lesion of face documented in this encounter Results * SURGICAL PATHOLOGY (01/13/2020 10:04 EST) Final Diagnosis A. SKIN OF MUSLIM, RIGHT, SHAVE BIOPSY: - Seborrheic keratosis. 01/14/2020 16:17 [facility] at 1617 Microscopic Description The stratum corneum is thickened by compact and basketweave orthokeratosis with formation of horn pseudocysts. The epidermis is acanthotic with formation of broad and anastomosing trabeculae. The trabeculae are composed of basaloid keratinocytes with round uniform nuclei. The keratinocytes have a variable amount of melanin pigment. (Dr. Fox)/mathew 01/14/2020 16:17 [facility] Clinical History Right jew scaly raised 8mmX1 cm skin lesion, r/o SCC vs BCC vs AK 01/14/2020 16:17 [facility] Attestation By the signature below, the attending physician certifies that they have 1) personally conducted a gross and/or microscopic examination of the described specimen(s), and/or personally interpreted the results of laboratory testing of the described specimen(s), and 2) personally rendered or confirmed the above diagnosis. 01/14/2020 16:17 [facility] at 1617 Gross Description A. Received in formalin labelled with proper patient identification (initials M, G) and not otherwise specified is a shave biopsy of vu-white firm slightly granular papule (0.9 x 0.7 x 0.1 cm). The margin is inked blue. Trisected and submitted in A1. MIHRAB ALI 01/13/2020 19:59 01/14/2020 16:17 [facility] Scanned Images 01/14/2020 16:17 [facility] Tissue TISSUE SPECIMEN FROM SKIN / Unknown Collection, Other / Unknown 01/13/2020 10:04 EST 01/13/2020 10:05 EST us Roxanna Hannah MD PATHOLOGY ORDERABLES Fin al Result [facility] [address] [place] [address] documented in this encounter Visit Diagnoses Diagnosis Skin lesion of face- Primary Unspecified disorder of skin and subcutaneous tissue Hypertension, unspecified type documented in this encounter Discontinued Medications Medication Sig Discontinue Reason Start Date End Da te amLODIPine (NORVASC) 5 mg tabletIndications:Hyper tension, unspecified type Take 0.5 tablets by mouth daily. Reorder 03/13/2019 01/13/2020 atorvastatin (LIPITOR) 40 mg tablet Take 1 tablet by mouth daily. Reorder 03/13/2019 01/13/2020 metFORMIN (GLUCOPHAGE) 500 mg tablet Take 2 Tabs by mouth 2 times daily with breakfast and dinner. Reorder 12/18/2019 01/13/2020 divalproex (DEPAKOTE) 500 mg delayed release tablet take 3 tablets by mouth once daily at bedtime Reorder 03/31/2019 01/13/2020 documented as of this encounter Historical Medications * This list may reflect changes made after this encounter. TURMERIC ORAL Take 1 Capsule by mouth daily. cinnamon bark (CINNAMON ORAL) Take 1 Capsule by mouth daily. 11/05/2023 added in this encounter Care Teams Sludge Control Operator Relationship Specialty Start Date End Date Roxanna Hannah MD [address] [place] [phone] PCP - General 03/28/09 05/31/20 documented as of this encounter
--- OUTSIDE RECORDS SUMMARY | 2024-10-06 13:47 | XMS_ITS | Encounter Summary ---
Author Organization [facility] Address [address] [place] [address] Care Team Providers Care Acid Cutter Name Role Phone Roxanna Hannah MD Primary Care Provider + Reason for Visit * Reason Comments Other Encounter Details Date Type Department Care Team (Late st Contact Info) Description 11/26/2020 [facility] Medicine [address] [address] Roxanna Hannah MD [address] [place] [address] [phone] Other Social History Tobacco Use Types Packs/Day [...] Refills Last Filled Start Date End Date metFORMIN (GLUCOPHAGE) 500 mg tablet TAKE 2 TABLETS BY MOUTH TWICE A DAY WITH BREAKFAST AND DINNER 360 Tab 11/28/2020 documented in this encounter Miscellaneous Notes * Telephone Encounter - Isaura Spivey - 12/01/2020 0951 EST Message left for patient to call to schedule a follow up. * Telephone Encounter - Michaela Taylor RN - 11/28/2020 1122 EST Medication(s) Requested: Metformin 500 mg 2 BID on 01/13/20 for 360 with 0 refills Preferred Pharmacy: [facility] Is patient out of medication? Unknown Last Refill Date: See above Last Visit Date with Ordering Provider: 01/13/20 Next Non-Acute Visit Date Scheduled with Care Team: No.-needs annual follow up for diabetes and hypertension MICHAELA MANZANARES RN 11/28/2020 11:22 documented in this encounter Plan of Treatment [...] learn more about your health please visit: https://www.[facility].org/medcenter/Pages/Wellness-Resources/Iqftmygzy-Vrmqqf-Mr sourc e-Center.aspx LDL < 100 Result Component Hyperlipidemia 56( 0 12:18 EST) No Maggie Andrade LPN HEMOGLOBIN A1C < 7.0 Result Component Type 2 diabetes mellitus ([facility]) 7.7(12/30/19 20 12:18 EST) No Maggie Andrade LPN documented as of this encounter Visit Diagnoses Not on filedocumented in this encounter Discontinued Medications Medication Sig Discontinue Reason Start Date End Da te metFORMIN (GLUCOPHAGE) 500 mg tablet Take 2 Tabs by mouth 2 times daily with breakfast and dinner. 01/13/2020 11/28/2020 documented as of this encounter Care Teams Acid Cutter Relationship Specialty Start Date End Date Roxanna Hannah MD [address] [place] [phone] PCP - General Family Medicine - Primary Care 09/12/20 12/08/20 documented as of this encounter
--- OUTSIDE RECORDS SUMMARY | 2024-10-06 13:47 | XMS_ITS | Encounter Summary ---
Author Organization [facility] Address [address] [place] [address] Care Team Providers Care Market Development Specialist Name Role Phone Roxanna Hannah MD Primary Care Provider + Reason for Visit * Reason Onset Date Comments Medical Records 01/06/2020 Encounter Details Date Type Department Care Team (Late st Contact Info) Description 01/06/[address] [phone] Roxanna Hannah MD [address] [place] [address] [phone] Medical Records Social History Tobacco Use Types Packs/Day Years [...] Entry Date Author No 12/30/2019 11:25 EST Aj, Bra ndy documented in this encounter Miscellaneous Notes * Telephone Encounter - Heydi Adams - 01/06/2020 1501 EST Spoke with medical records ay [facility] in [facility]. They willfax the ER report and chest xray result from 09/2019 to our office. * Telephone Encounter - Heydi Adams - 01/06/2020 1500 EST ----- Message from Roxanna Hannah MD sent at 12/30/2019 11:43 EST ----- Please get ED visit and CXR notes from 09/2019 [facility] documented in this encounter Plan of Treatment [...] learn more about your health please visit: https://www.[facility].org/medcenter/Pages/Wellness-Resources/Lqwwqxkgk-Kcazlm-Sw sourc e-Center.aspx LDL < 100 Result Component Hyperlipidemia 56( 0 12:18 EST) No Maggie Andrade LPN HEMOGLOBIN A1C < 7.0 Result Component Type 2 diabetes mellitus ([facility]) 7.7(12/30/19 20 12:18 EST) No Maggie Andrade LPN documented as of this encounter Visit Diagnoses Not on filedocumented in this encounter Care Teams Market Development Specialist Relationship Specialty Start Date End Date Roxanna Hannah MD [address] [place] [phone] PCP - General 03/28/09 05/31/20 documented as of this encounter
--- OUTSIDE RECORDS SUMMARY | 2024-10-06 13:47 | XMS_ITS | Encounter Summary ---
Author Organization [facility] Address [address] [place] [address] Care Team Providers Care Credit Consultant Name Role Phone Roxanna Hannah MD Primary Care Provider + Reason for Visit * Reason Onset Date Comments Results 01/15/2020 Encounter Details Date Type Department Care Team (Late st Contact Info) Description 01/15/[address] [phone] Roxanna Hannah MD [address] [place] [address] [phone] Results Social History Tobacco Use Types Packs/Day Years [...] encounter Miscellaneous Notes * Telephone Encounter - Roxanna Hannah MD - 01/15/2020 0859 EST TC to patient Recent shave biopsy right holiness skin lesion benign jordon karatosis No further management indicated/needed Final Diagnosis A. SKIN OF ANABAPTIST, RIGHT, SHAVE BIOPSY: - Seborrheic keratosis. documented in this encounter Plan of Treatment [...] learn more about your health please visit: https://www.[facility].org/medcenter/Pages/Wellness-Resources/Dfoeetmhl-Sxckvd-Vf sourc e-Center.aspx LDL < 100 Result Component Hyperlipidemia 56( 0 12:18 EST) No Maggie Andrade LPN HEMOGLOBIN A1C < 7.0 Result Component Type 2 diabetes mellitus ([facility]) 7.7(12/30/19 20 12:18 EST) No Maggie Andrade LPN documented as of this encounter Visit Diagnoses Not on filedocumented in this encounter Care Teams Credit Consultant Relationship Specialty Start Date End Date Roxanna Hannah MD [address] [place] [phone] PCP - General 03/28/09 05/31/20 documented as of this encounter
--- OUTSIDE RECORDS SUMMARY | 2024-10-06 13:47 | XMS_ITS | Encounter Summary ---
Author Organization [facility] Address [address] [place] [address] Care Team Providers Care Graphics Specialist Name Role Phone Roxanna Hannah MD Primary Care Provider + Encounter Details Date Type Department Care Team (Late st Contact Info) Description 12/30/[address] [address] Roxanna Hannah MD [address] [place] [address] [phone] Social History Tobacco Use Types Packs/Day Years [...] learn more about your health please visit: https://www.[facility].org/medcenter/Pages/Wellness-Resources/Wwydpwvwf-Hhqgaj-Mk sourc e-Center.aspx LDL < 100 Result Component Hyperlipidemia 56( 0 12:18 EST) No Maggie Andrade LPN HEMOGLOBIN A1C < 7.0 Result Component Type 2 diabetes mellitus ([facility]) 7.7(12/30/19 20 12:18 EST) No Maggie Andrade LPN documented as of this encounter Visit Diagnoses Not on filedocumented in this encounter Care Teams Graphics Specialist Relationship Specialty Start Date End Date Roxanna Hannah MD [address] [place] [phone] PCP - General 03/28/09 05/31/20 documented as of this encounter
--- OUTSIDE RECORDS SUMMARY | 2024-10-06 13:47 | XMS_ITS | Encounter Summary ---
Author Organization [facility] Address [address] [place] [address] Care Team Providers Care Aerial Hurricane Hunter Name Role Phone Rebeca Garcia Primary Care Provider + Encounter Details Date Type Department Care Team (Late st Contact Info) Description 07/09/2022 Lab Requisition [facility] Pathology & Laboratory Medicine - [facility] [address] [place] [address] Outr Resulting Lab, Provider Social History Tobacco [...] about your health please visit: https://www.[facility].org/medcenter/Pages/Wellness-Resources/Xmntitxve-Aixorl-Di sourc e-Center.aspx LDL < 100 Result Component Hyperlipidemia 56( 0 12:18 EST) No Maggie Andrade LPN HEMOGLOBIN A1C < 7.0 Result Component Type 2 diabetes mellitus ([facility]) 7.7(12/30/19 20 12:18 EST) No Maggie Andrade LPN documented as of this encounter Procedures Procedure Name Priority Date/Time Associated Diagnosis Comments GIARDIA AND CRYPTOSPORIDIUM ANTIGENS Routine 07/06/2022 15:00 EDT documented in this encounter Results * GIARDIA AND CRYPTOSPORIDIUM ANTIGENS (07/06/2022 15:00 EDT) Giardia and Cryptosporidium Cryptosporidium Antigen Neg and Giardia Antigen Neg Cryptosporidium Antigen Neg and Giardia Antigen Neg 2 14:13 EDT [facility] Feces SPECIMEN FROM RECTUM / Unknown 07/06/2022 15:00 EDT 07/09/2022 19:00 EDT us Provider Outr Resulting Lab MICROBIOLOGY - GENER AL ORDERABLES Final Result [facility] [address] [place] [address] documented in this encounter Visit Diagnoses Not on filedocumented in this encounter Care Teams Aerial Hurricane Hunter Relationship Specialty Start Date End Date Rebeca Garcia PA [address] [place] [phone] PCP - General 11/25/21 documented as of this encounter
--- OUTSIDE RECORDS SUMMARY | 2024-10-06 13:47 | XMS_ITS | Encounter Summary ---
Author Organization [facility] Address [address] [place] [address] Care Team Providers Care Housefellow Name Role Phone Unavailable Primary Care Provider Unavailabl e Reason for Visit * Reason Comments Other Encounter Details Date Type Department Care Team (Late st Contact Info) Description 02/23/2021 Refill [facility] Family Medicine - [address] [phone] Roxanna Hannah MD [address] [place] [address] [phone] Other Social History Tobacco Use Types Packs/Day [...] learn more about your health please visit: https://www.[facility].org/medcenter/Pages/Wellness-Resources/Jwvrgqusw-Cptufb-Yz sourc e-Center.aspx LDL < 100 Result Component Hyperlipidemia 56( 0 12:18 EST) No Maggie Andrade LPN HEMOGLOBIN A1C < 7.0 Result Component Type 2 diabetes mellitus ([facility]) 7.7(12/30/19 20 12:18 EST) No Maggie Andrade LPN documented as of this encounter Visit Diagnoses Not on filedocumented in this encounter
--- OUTSIDE RECORDS SUMMARY | 2024-10-06 13:47 | XMS_ITS | Referral Summary ---
Author Organization [facility] Address [address] [place] [address] Care Team Providers Care Bridge Repairer Name Role Phone Rebeca Garcia Primary Care Provider + Allergies Active Allergy Reactions Criticality Noted Date Comments Carbamazepine Rash 08/25/2009 Phenytoin Sodium Extended 03/03/2019 [place] like a zombie. Lisinopril 03/03/2019 Depression Medications [...] Take 1 Tablet by mouth daily. Active Mobile Oil oil Take by mouth daily. Active Active Problems Patient Care Coordination No te Formatting of this note migh t be different from the original. [facility] Memory Program BEATRIS scanned to [facility] on: 2023-11-05 Problem Noted Date Diagnosed Date Tinnitus 10/28/2023 Tubular adenoma of colon 10/21/2017 Overview (10/21/2017): High grade dysplasia 09/[address] [facility] Obesity 12/27/2014 Hydrocele 03/10/2014 Polyarthropathy 11/06/2012 Type 2 diabetes mellitus ([facility]) 12/12/2011 Depression 10/30/2011 Anxiety 10/30/2011 Atypical chest pain 07/30/2007 Overview (05/31/2023): A. Admission in [facility] on 04/27/2007. Ruled out MS and negative stress test at that time Allergic rhinitis 03/19/2007 Hyperlipidemia 01/31/2005 Hypertension 10/24/2004 Seizure disorder ([facility]) 08/05/2002 Overview (10/27/2012): Nocturnal grand mal F/U [...] 07/11/2011 Zostavax (Zoster Vaccine, Live) SQ 03/05/2017 Social History Tobacco Use Types Packs/Day Years [...] 13:46 EST Sexual Orientation Not on file Last Filed Vital Signs Vital Sign Reading [...] Body Mass Index 37.9 01/13/2020 0853 EST Functional Status * Because of a physical, mental, or emotional condition, does this person have difficulty doing errands alone such as visiting a doctor's office or shopping? Answer Date of Assessment Author No 08/11/2018 12:13 EDT Mental Status * Because of a physical, mental, or emotional condition, does this person have serious difficulty concentrating, remembering, or making decisions? Answer Entry Date Author No 12/30/2019 11:25 EST Aj, Bra ndy Plan of Treatment Not on file Goals Goal Patient Goal Type Associated Problems [...] learn more about your health please visit: https://www.[facility].org/medcenter/Pages/Wellness-Resources/Pdvvqmfvm-Ptgtja-Pz sourc e-Center.aspx LDL < 100 Result Component Hyperlipidemia 56( 0 12:18 EST) No Maggie Andrade LPN HEMOGLOBIN A1C < 7.0 Result Component Type 2 diabetes mellitus ([facility]) 7.7(12/30/19 20 12:18 EST) No Maggie Andrade LPN Procedures Procedure Name Priority Date/Time Associated Diagnosis Comments COMPREHENSIVE METABOLIC PANEL (CMP) Routine 10/23/2023 14:46 EST Memory loss URINE [id number] RATIO (ACR) Routine 12/30/2019 12:19 EST Type 2 diabetes mellitus without complication, without long-term current use of insulin ([facility]) HEMOGLOBIN A1C Routine 12/30/2019 12:18 EST Type 2 diabetes mellitus without complication, without long-term current use of insulin ([facility]) LIPID PROFILE (INCLUDES CHOLESTEROL, TRIGLYCERIDES, HDL, LDL) [...] 143 136 - 145 mmol/L 10/23/2023 16:49 [facility] Potassium 4.4 3.5 - 5.0 mmol/L 10/23/2023 16:49 [facility] Chloride 104 96 - 110 mmol/L 10/23/2023 16:49 [facility] CO2 Total 27 22 - 32 mmol/L 10/23/2023 16:49 [facility] Glucose 105(H) 70 - 99 mg/dl 10/23/2023 16:49 [facility] BUN 21 10 - 26 mg/dL 10/23/2023 16:49 [facility] Creatinine 0.84 0.66 - 1.25 mg/dL 10/23/2023 16:49 [facility] eGFR 96 >60 mL/min/1.7 3m2 10/23/2023 16:49 [facility] Total Protein 7.6 6.3 - 8.2 g/dL 10/23/2023 16:49 [facility] Albumin 4.6 3.4 - 4.9 g/dL 10/23/2023 16:49 [facility] Alkaline Phosphatase 66 38 - 126 U/L 10/23/2023 16:49 [facility] AST 30 15 - 46 U/L 10/23/2023 16:49 [facility] ALT 35 <50 U/L 10/23/2023 16:49 [facility] Bilirubin, Total 0.6 <1.4 mg/dL 10/23/20 16:49 [facility] Calcium 9.9 8.5 - 10.5 mg/dL 10/23/2023 16:49 [facility] Albumin/Globulin Ratio 1.5 1.0 - 2.5 g/dL 10/23/2023 16:49 [facility] Anion Gap 12 5 - 14 mmol/L 10/23/2023 16:49 [facility] Blood VENOUS BLOOD / Unknown Venipuncture / Unknown 10/23/2023 14:46 EST 10/23/2023 14:46 EST Pradeep Yi MD CHEMISTRY & BLOOD GAS ORDERABLE S Final Result Performing Organization Address [facility] Co de Phone Number [facility] [address] [place] [address] * ALBUMIN, URINE (12/30/2019 12:19 EST) Albumin, Urine <0.6 See Note mg/dL 2019 18:48 [facility] Comment: NOTE: Reference range not established Creatinine, Urine 104.7 See Note mg/dL 12/30/2019 18:48 [facility] Comment: NOTE: Reference range not established Lab Urine Albumin to Creatinine Ratio <6 <30 ug/mg Creatinine 12/30/2019 18:48 [facility] Comment: Urine Albumin/Creatinine Ratio: Normal: <30 ug/mg Creatinine Moderately increased albuminuria: 30-30 ug/mg Creatinine Herlinda increased albuminuria: >300 ug/mg Creatinine Urine URINE SPECIMEN OBTAINED BY CLEAN CATCH PROCEDURE / Unknown Urine Collect / Unknown 12/30/2019 12:19 EST 12/30/2019 12:19 EST us Roxanna Hannah MD CHEMISTRY & BLOOD GAS OR DERABLES Final Result Performing Organization Address [facility] Co de Phone Number [facility] [address] [place] [address] * (ABNORMAL) HEMOGLOBIN A1C (12/30/2019 12:18 EST) Hemoglobin A1c 7.7(H) <5.7 % 12/31/2019 9:56 EST [facility] Comment: Glycemic Status References: Normal: [...] Est Avg Glucose 174 mg/dL 0 9:56 [facility] Comment: The eAG represents the A1c result expressed as average glucose in mg/dL. Blood VENOUS BLOOD / Unknown Venipuncture / Unknown 12/30/2019 12:18 EST 12/30/2019 12:19 EST us Roxanna Hannah MD CHEMISTRY & BLOOD GAS OR DERABLES Final Result [facility] [address] [place] [address] * LIPID PROFILE (INCLUDES CHOLESTEROL, TRIGLYCERIDES, HDL, LDL) (12/30/2019 12:18 EST) Cholesterol 116 See Note mg/dL 12/30/2019 18:03 EST [facility] Comment: Acceptable: ?<200 mg/dL Borderline High: 200-239 mg/dL High: ?> or = 240 mg/dL HDL 25 See Note mg/dL 12/30/2019 18:03 [facility] Comment: Low: ? <40 mg/dL Normal: ??40-60 mg/dL High: ?>60 mg/dL LDL, Calculated 56 See Note mg/dL 12/30/2019 18:03 [facility] Comment: Optimal: ? <100 mg/dL Near Optimal: ?100-129 mg/dL Borderline High: 130-159 mg/dL High: ?160-189 mg/dL Very High: ? > or = 190 mg/dL Triglyceride 177 See Note mg/dL 12/30/2019 18:03 [facility] Comment: Normal: ? <150 mg/dL Borderline High: ??150 - 199 mg/dL High: ? 200 - 499 mg/dL Very High: ?> or = 500 mg/dL Chol/HDL Ratio 4.6 See Note 12/30/2019 18:03 [facility] Comment: No reference range has been established for CHOL/HDL ratio. Non HDL Cholesterol 91 See Note mg/dL 12/30/2019 18:03 [facility] Comment: Desirable: ?<130 mg/dL Borderline High: ??130-159 mg/dL High: ? 160-189 mg/dL Very High: ?> or = 190 mg/dL Blood VENOUS BLOOD / Unknown Venipuncture / Unknown 12/30/2019 12:18 EST 12/30/2019 12:19 EST Narrative [facility] - 12/30/2019 18:03 EST 3 us Roxanna Hannah MD CHEMISTRY & BLOOD GAS OR DERABLES Final Result [facility] [address] [place] [address] * COLONOSCOPY PROCEDURE (05/12/2019) Colonoscopy [facility] Colonoscopy, External [facility] Comment:The cecum, ascending , transverse, [...] Rfx PCR Negative Negative 03/06/2017 10:54 EDT [facility] Comment:Reference Range: Neg ative Blood specimen (specimen) BLOOD SPECIMEN / Unknown 03/05/2017 12:20 EDT 03/05/2017 18:54 EDT Roxanna Hannah MD CHEMISTRY & BLOOD GAS OR DERABLES Final Result [facility] [address] [place] [address] from Last 3 Months or Most Recently Relevant to Health Maintenance Insurance [facility] [id number] [address] Advance Directives For more information, please contact: [phone] Documents on File Type Date Recorded Patient Assistant Professor Of Psychology Expl anation Advance Directive 04/29/2018 14:58 * Full Code (Latest Code Status on File) Date Activated Date Inactivated Comments 03/10/2014 10:34 03/10/2014 15:25 * Full Code Date Activated Date Inactivated Comments 11/06/2012 15:04 11/07/2012 14:58 Care Teams Bridge Repairer Relationship Specialty Start Date End Date Rebeca Garcia PA [address] [place] [phone] PCP - General 11/25/21
--- OUTSIDE RECORDS SUMMARY | 2024-10-06 13:47 | XMS_ITS | Encounter Summary ---
Author Organization [facility] Address [address] [place] [address] Care Team Providers Care Real Estate Account Executive Name Role Phone Rebeca Garcia Primary Care Provider + Reason for Visit * Reason Comments Memory Loss * Referral (Routine) - Receiving Office to Obtain Authorization Specialty Diagnoses / Procedures Referred By Nela bravo Referred To Contact Psychology Diagnoses Memory loss Cerebral atrophy (HCC-CMS) History of seizures Rebeca Garcia PA [address] [place] [address] Phone: tel: fax: [facility] Memory Program - Medical Office Building [address] [place] [address] Phone: tel: fax: Referral ID Status Reason Start Date Expiration Date Visits Requested Visits Authorized [id number] Receiving Office to Obtain Authorization 1 1 Encounter Details Date Type Department Care Team (Late st Contact Info) Description 10/23/2023 13:00 EST Office Visit [facility] Memory Program - Medical Office Building [address] [place] [id number] Praveena Grimm, PhD [address] [facility] [address] [place] [address] Memory loss (Primary Dx) Social History Tobacco [...] documented in this encounter Progress Notes * Praveena Grimm, PhD - 10/23/2023 1300 EST NEUROPSYCHOLOGICAL EVALUATION Mario Curry was seen for interview and testing on 10/23/2023. He was referred by AKOSUA Chaidez, and was seen as an outpatient at the Medical Office Building on the [facility]. PATIENT PROFILE: Mr. Curry is a 68-year-old, left-handed man who was born in [place] and raised in [place], [place]. There is little known about his biological family history, as Mr. Curry was adopted. He was raised with his two adopted sisters, the oldest whom lives in [place]. He does not havecontact with his younger adopted sister. Mr. Curry had two marriages that ended in divorce. He a third time, and his in December 2016 after 30 years of marriage. He is notcurrently in a relationship. He has one adult daughter who lives locally. Mr. Curry graduated from high school. 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 He retired at age 63. At present, he lives independently in [place]. As mentioned, Mr. Curry was adopted, and [...] includes type 2 diabetes,hypertension, hyperlipidemia, and anxiety. HISTORY OF PRESENTING ILLNESS: Mr. Curry states that he is [facility] to the [facility] memory difficulties in the context of brain shrinkage that was reportedly documentedon his MRI. Upon interview, he states that he experienced some declines in his memory in the (in the setting of seizures), but he feels that his cognitive issues subsequently reached a plateau.At present, he reports having fairly clear recall of remote information, and he describes no glaring problems recalling recent events. He states that his daughter will occasionally say that she has already told him something, but in general, he reports that he reliably remembers conversations that are important. He feels that diminished hearing may explain [...] He states that he has known his btqush-vw-uvh for 20 years, andhe has not observed [...] also fine. Mr. Ortiz reports that his cnfxou-pe-dwu remains completely independent in terms of basic [...] the summer, he lives at the family [place] and has a number of friends there who he has known for years. 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 Additionally, he attends his grandchildren's sporting events. Mr. Ortiz describes no concerns for depression, anxiety, anger, or personality changes. In general, he states that his gfbqlq-xe-ykw is usually in a good mood and is very level. BEHAVIORAL OBSERVATION AND MENTAL STATUS EXAMINATION: Mr. Curry presented as a casually dressed,well-groomed gentleman who arrived promptly for his scheduled appointment accompanied by his son-in-law. He ambulated independently. Vision was corrected with eyeglasses. He endorsed tinnitus, but hearing appeared to be adequate for testing purposes. Speech was spontaneous and normal in rate, volume and tone; no word finding difficulties or paraphasic errors were noted during casual conversation.Affect was normal in range, and eye contact was well- modulated during conversation. Mr. Curry described his typical mood as good, denying depression or anger/irritability. He states that he has always been somewhat anxiety-prone. He described some symptoms of anhedonia, noting that he does not really have any hobbies and does not get as excited about stuff like he used to. Heattributes this in part to the loss of his several years ago and occasional feelings of isolation. He explicitly denied passive wishes for and suicidal ideation. He acknowledged that he does not have the best sleep hygiene, mentioning that he likes to fall asleep listening to You Tube, but it keeps him up until around 2:00 to 3:00 am. He then sleeps in late, until around 11:00 am. He reports that his energy is pretty good once he gets going, but sometimes he does inadvertently doze off in the evenings, such as when watching television. He has a healthy appetite and stable weight. History of hallucinations and delusions is denied. He does not consume alcohol, nor does he use tobacco products. He obtained a score of 5 on the Geriatric Depression Scale, which falls just below the cutoff considered mild for depression NEUROPSYCHOLOGICAL FINDINGS: Mr. Curry was administered a battery of neuropsychological tests, evaluating a range of cognitive functions. His performance on these measures is reviewed below. 1. Orientation: He was adequately oriented to self, time, place, and situation. He was able to namethe current U.S. President, the Loom Stop Checker, and the Governor of [place]. 2. Attention/processing: He could repeat 6 digits forward and 3 digits backward, which falls in theaverage range for his age. He was able to complete 4 out of 5 trials of a serial subtraction task, and he could spell world backward without error. Performance on a timed test of visual scanning and sequencing fell within the average range. 3. Communication skills: Upon testing, confrontation naming was intact; he was able to name 22 of 25 pictures. His oral fluency was high average; he was able to generate 24 animal names in one minute. He was able to follow 7 out of 7 verbal commands. He was able to repeat, read, and write single sentences. Sight word recognition reading skill was average. 4. Memory functioning: He could correctly recall 1 of 3 words after a brief delay. Immediate recallof short stories was average (50th percentile); 30-minute delayed recall of short stories was average (25th percentile); recognition memory was also average (26-50th percentile). Immediate recall of visually- presented spatial material was average (50th percentile); 30-minute delayed recall of visuospatial information was high average (84th percentile); recognition memory was high average (>75th percentile). On a 10-word, multi- trial learning task, he was able to recall 6, 7, and 8 words across the three learning trials, earning an average score. Following a brief delay he recalled 6 of thewords, representing an average performance. On the recognition trial, he correctly identified 10 ofthe words and misidentified none of the foil items. 5. Spatial organization skills: His block design reproductions were performed in the average range for his age. His clock drawing earned 13 out of 15 possible points, reflecting only minor errors. His other figure drawings were adequate, with the exception of having trouble reproducing a cube. 6. Reasoning skills: He correctly solved 4 of 4 word-pair similarities, and he earned 8 out of 9 possible points when asked to solve 3 functional verbal problems. 7. Index scores: He achieved a score of 27 on the MMSE-2, which falls in the average range (T = 49)and at the 47th percentile, and an Adjusted Total Score of 97 on the CERAD-NB, which falls in the high average range (T = 59) and at the 82nd percentile. SUMMARY AND IMPRESSION: Mr. Curry is a 68-year-old, left-handed, man with 12 years of education. He presents to the Memory Program due to a self- reported history of memory difficulties, which are noted in the context of seizure disorder (well controlled on medication), anxiety, type 2 diabetes, HTN, and HLD. He apparently underwent MRI of the brain in April [...] emerging neurodegenerative disorder (dementia) at this time. Other factors that have the potential to undermine Mr. Curry's cognitivefunctioning include anxiety/mood issues and poor sleep hygiene. If not already considered, he mightbenefit from participation in individual psychotherapy to address symptoms of anxiety, anhedonia, and self-reported feelings of loneliness. A cognitive-behavioral approach, possibly including behavioral activation strategies, might be beneficial. Additionally, he is encouraged to stay physically active (as medically advised), practice good sleep habits (including setting a regular bedtime and wake time and avoiding use of electronics before bed), adhere to a healthy diet, and stay cognitively and socially active. PLAN: Mr. Curry will be seen for neurological consultation by Dr. Hossein Fowler on 11/05/23for the second part of his Memory Program work-up. DIAGNOSIS: Memory Loss (R41.3) TIME / PROCEDURES: Neurobehavioral Status Examination - 60 minutes (1 unit of 96151) provided by neuropsychologist; Professional services time - 80 minutes (1 [place] of 82730) provided by neuropsychologist; Testing by rf test technician - 78 minutes (1 unit of 62466 and 2 unit(s) of 69398) consisting of administration and scoring. Praveena Grimm, PhD Psychologist - Doctorate documented in this encounter Plan of Treatment [...] please visit: [email or web address]/medcenter/Pages/Wellness-Resources/Nhojuzpsm-Utzmtl-Fw sourc e-Center.aspx LDL < 100 Result Component Hyperlipidemia 56( 0 12:18 EST) No Maggie Andrade LPN HEMOGLOBIN A1C < 7.0 Result Component Type 2 diabetes mellitus ([facility]) 7.7(12/30/19 20 12:18 EST) No Maggie Andrade LPN documented as of this encounter Visit Diagnoses Diagnosis Memory loss- Primary documented in this encounter Care Teams Real Estate Account Executive Relationship Specialty Start Date End Date Rebeca Garcia PA [address] [place] [phone] PCP - General 11/25/21 documented as of this encounter
--- OUTSIDE RECORDS SUMMARY | 2024-10-06 13:47 | XMS_ITS | Encounter Summary ---
Author Organization [facility] Address [address] [place] [address] Care Team Providers Care Robotics Engineer Name Role Phone Roxanna Hannah MD Primary Care Provider + Reason for Visit * Reason Onset Date Comments Medical Records 03/08/2020 Encounter Details Date Type Department Care Team (Late st Contact Info) Description 03/08/[address] [phone] Roxanna Hannah MD [address] [place] [phone] Medical Records Social History Tobacco Use Types [...] encounter Miscellaneous Notes * Telephone Encounter - Ignacio Calhounssica - 03/08/2020 0847 EDT Release of Records received on: 03/07/2020 Records to be sent to: [facility] Care Sent to HIM on: 03/08/2020 documented in this encounter Plan of Treatment [...] learn more about your health please visit: [email or web address]/medcenter/Pages/Wellness-Resources/Nklkofhdp-Zskcpx-Wc sourc e-Center.aspx LDL < 100 Result Component Hyperlipidemia 56( 0 12:18 EST) No Maggie Andrade LPN HEMOGLOBIN A1C < 7.0 Result Component Type 2 diabetes mellitus ([facility]) 7.7(12/30/19 20 12:18 EST) No [place], Maggie, ROOM ATTENDANT documented as of this encounter Visit Diagnoses Not on filedocumented in this encounter Care Teams Robotics Engineer Relationship Specialty Start Date End Date Roxanna aHnnah MD [address] [place] [phone] PCP - General 03/28/09 05/31/20 documented as of this encounter
--- OUTSIDE RECORDS SUMMARY | 2024-10-06 13:48 | XMS_ITS | Encounter Summary ---
Author Organization [facility] Address [address] [place] [address] Care Team Providers Care Yarding And Folding Machine Operator Name Role Phone Roxanna Hannah MD Primary Care Provider + Reason for Referral * Referral (Routine) - Specialty Report Received Specialty Diagnoses / Procedures Referred By Nela bravo Referred To Contact Diagnoses Tubulovillous adenoma of colon Procedures COLONOSCOPY REQUEST Roxanna Hannah MD Phone: tel: fax: Edi Kan MD Phone: tel: fax: Referral ID Status Reason Start Date Expiration Date V isits Requested Visits Authorized [id number] Specialty Report Received 03/31/2019 1 1 Reason for Visit * Reason Comments Diabetes 4 MONTH F/U Encounter Details Date Type Department Care Team (Late st Contact Info) Description 03/31/2019 10:15 EDT Office Visit [address] [id number] Roxanna Hannah MD [address] [place] [address] [phone] Type 2 diabetes mellitus without complication, without long-term current use of insulin ([facility]) (Primary Dx); Other hyperlipidemia; Essential hypertension; Seizure disorder ([facility]); Tubulovillous adenoma of colon; Obesity (BMI 30-39.9) Social History Tobacco Use Types Packs/Day Years Used Date Smoking Tobacco: Never Smokeless Tobacco: Never Tobacco Cessation:Counseling Given: No Alcohol Use Standard Drinks/Week Comments Yes 0 [...] Sign Reading Time Taken Comments Blood Pressure 130/80 03/31/2019 1016 EDT Pulse 80 03/31/2019 1016 EDT Temperature 36.2 ??C (97.2 ??F) 03/31/2019 1016 EDT Respiratory Rate - - Oxygen Saturation - - Inhaled Oxygen Concentration - - Weight 119.7 kg (264 lb) 03/31/2019 1016 EDT Height 174.6 cm (5' 8.75) 03/31/2019 1016 EDT Body Mass Index 39.27 03/31/2019 1016 EDT documented in this encounter Functional Status * [...] or making decisions? Answer Entry Date Author Yes 03/31/2019 10:16 EDT Vaishali Rocha documented in this encounter Ordered Prescriptions Prescription Sig Dispense Quantity Refills Last Filled Start Date End Date polyethylene glycol (GOLYTELY;NULYTEL Y) 236-22.74-6.74 -5.86 gram suspension Instructions mailed once procedure scheduled. Questions: [facility] Gastroenterology: [phone] or GI Doctor's Office. 4000 mL 03/31/2019 9 hydroCHLOROthiazi de (HYDRODIURIL) 25 mg tablet take 1 tablet by mouth once daily 90 tablet 3 03/31/2019 0 divalproex (DEPAKOTE) 500 mg delayed release tablet take 3 tablets by mouth once daily at bedtime 270 tablet 3 03/31/2019 0 documented in this encounter Progress Notes * Roxanna Hannah MD - 03/31/2019 1015 EDT Subjective: Patient ID: Mario Curry is an 63 y.o. male. Chief Complaint Patient presents with ??? Diabetes 4 MONTH F/U Diabetes He presents for his follow-up diabetic visit. He has type 2 diabetes mellitus. His disease course has been worsening (HgA1C 1 month ago 8.6, increased Metformin as result). There are no hypoglycemic associated symptoms. There are no diabetic associated symptoms. Pertinent negatives for diabetes include no chest pain. There are no hypoglycemic complications. Symptoms are stable. There are no diabetic complications. Risk factors for coronary artery disease include diabetes mellitus, dyslipidemia,hypertension, male sex and obesity. Current diabetic treatment includes oral agent (monotherapy) (Metformin up to 1000 mg BID). He is compliant with treatment most of the time. He has had a previous v isit with a dietitian. He participates in exercise daily (very active, uses exercise equipment and walks). An ROZINA inhibitor/angiotensin II receptor alexus is not being taken. He does not see a carpet cleaner.Eye exam is current. Hypertension This is a chronic problem. The current episode started more than 1 year ago. The problem is unchanged. The problem is controlled. Pertinent negatives include no chest pain, palpitations, peripheral edema or shortness of breath. There are no associated agents to hypertension. Risk factors for coronary artery disease include diabetes mellitus, dyslipidemia, obesity and male gender. Past treatments include calcium channel blockers, diuretics and lifestyle changes. The current treatment provides moderate improvement. There are no compliance problems. There is no history of kidney disease or CAD/FL. There is no history of chronic renal disease, a hypertension causing med or a thyroid problem. Hyperlipidemia This is a chronic problem. The current episode started more than 1 year ago. The problem is controlled. Recent lipid tests were reviewed and are normal. Exacerbating diseases include diabetes and obesity. He has no history of chronic renal disease. Pertinent negatives include no chest pain or shortness of breath. Current antihyperlipidemic treatment includes statins. The current treatment provides moderate improvement of lipids. There are no compliance problems. Risk factors for coronary arterydisease include diabetes mellitus, dyslipidemia, obesity and male sex. Tubulovillous adenoma, due for 1 year surveillance colonoscopy at [facility] with Dr. Kan Seizure D/O - no seizures Due in summer for Depakote level Obesity - when saw Dr. Cleaning last month discussed wt loss goal vs adding new Rx to help with wt loss and DM management Patient Active Problem List Diagnosis ??? Routine history and physical examination of adult ??? Seizure disorder ([facility]) ??? Gastroesophageal reflux disease ??? Essential hypertension ??? Hyperlipidemia ??? Allergic rhinitis ??? Male erectile disorder ??? Atypical chest pain ??? Depression ??? Anxiety ??? Type 2 diabetes mellitus without complication, without long-term current use of insulin ([facility]) ??? Unspecified polyarthropathy or polyarthritis, shoulder region ??? Hydrocele ??? Obesity, Class I, BMI 30-34.9 ??? Tubular adenoma of colon Past Medical History: Diagnosis Date ??? Abnormal glucose tolerance test 03/09/2009 ??? Allergic rhinitis 03/19/2007 ??? Erectile dysfunction ??? Essential hypertension 10/24/2004 ??? GERD (gastroesophageal reflux disease) 08/05/2002 ??? Hyperlipidemia 01/31/2005 ??? Impaired glucose tolerance 10/03/2011 ??? Routine general medical examination at health care facility 08/05/2002 ??? Seizure disorder ([facility]) 08/05/2002 ??? Seizures ([facility]) ??? Type 2 diabetes mellitus without complication, without long-term current use of insulin ([facility]) Current Outpatient Medications on File Prior to Visit Medication Sig Dispense Refill ??? acetaminophen (TYLENOL) 650 mg tablet Take 1 Tab by mouth every 4 hours as needed for Pain. ??? amLODIPine (NORVASC) 5 mg tablet Take 0.5 tablets by mouth daily. 90 tablet 4 ??? aspirin 81 mg EC tablet Take 81 mg by mouth daily. ??? atorvastatin (LIPITOR) 40 mg tablet Take 1 tablet by mouth daily. 90 tablet 4 ??? DOCOSAHEXANOIC ACID/EPA (FISH OIL ORAL) Take 1 Capsule by mouth daily ??? fluticasone (FLONASE) 50 mcg/actuation nasal spray Instill 2 Sprays into both nostrils daily. 16 g 2 ??? Garlic capsule Take 5 Caps by mouth daily. ??? metFORMIN (GLUCOPHAGE) 500 mg tablet Take 1 tablet by mouth daily with breakfast for 10 days, THEN 1 tablet 2 times daily with breakfast and dinner for 30 days. 180 tablet 2 ??? MULTIVITAMINS (MULTI-VITAMIN ORAL) Take 1 Tab by mouth daily. ??? omeprazole (PRILOSEC) 20 mg capsule TAKE 1 CAPSULE DAILY 90 Cap 3 No current facility-administered medications on file prior to visit. Allergies Allergen Reactions ??? Dilantin [Phenytoin Sodium Extended] [place] like a zombie. ??? Lisinopril Depression ??? Tegretol [Carbamazepine] Rash Social Social History Tobacco Use ??? Smoking status: Never Smoker ??? Smokeless tobacco: Never Used Substance Use Topics ??? Alcohol use: Yes Comment: 2-3 drinks per week ??? Drug use: No Review of Systems Respiratory: Negative for shortness of breath. Cardiovascular: Negative for chest pain and palpitations. - See HPI Objective: BP 130/80 (BP Cuff Location: Right arm, Patient Position: Sitting, BP Cuff Sizes: Adult, large) Pulse 80 Temp 36.2 ??C (97.2 ??F) (Tympanic) Ht 174.6 cm (68.75) Wt (!) 119.7 kg (264 lb) BMI 39.27 kg/m?? Physical Exam Constitutional: He appears well-developed and well-nourished. No distress. obes Eyes: Conjunctivae are normal. No scleral icterus. Skin: No erythema. No pallor. Assessment: Plan: Mario was seen today for diabetes. Diagnoses and all orders for this visit: Type 2 diabetes mellitus without complication, without long-term current use of insulin ([facility]) HgA1C up to 8.6 1 month ago He has already increased Metformin to 1000 mg BID to address, repeat in a total 12 weeks after dosechange - ALBUMIN, URINE; Future - HEMOGLOBIN A1C; Future Other hyperlipidemia On MOD potency statin No change FLP with next labs in 2-3 months - LIPID PROFILE (INCLUDES CHOLESTEROL, TRIGLYCERIDES, HDL, LDL); Future Essential hypertension At goal No changes Seizure disorder ([facility]) No recent Sz depakote level with next labs - VALPROIC ACID LEVEL; Future Tubulovillous adenoma of colon With dysplasia Need surveillance colonoscopy this year with Dr. Salomone - COLONOSCOPY REQUEST Obesity - as previously discussed wt loss goal Will see what HgA1C and wt is over next few months Other orders - divalproex (DEPAKOTE) 500 mg delayed release tablet; take 3 tablets by mouth once daily at bedtime - hydroCHLOROthiazide (HYDRODIURIL) 25 mg tablet; take 1 tablet by mouth once daily - polyethylene glycol (GOLYTELY;NULYTELY) 236-22.74-6.74 -5.86 gram suspension; Instructions mailedonce procedure scheduled. Questions: [facility] Gastroenterology: [phone] or GI Doctor's Office. Return in about 3 months (around 07/01/2019), or if symptoms worsen or fail to improve, for ROV, after labs in early MAY. documented in this encounter Plan of Treatment Scheduled Orders Name Type Priority Associated Diagnoses Orde r Schedule COLONOSCOPY REQUEST GI Routine Tubulovillous adenoma of colon Ordered: 03/31/2019 documented as of this encounter Goals Goal [...] learn more about your health please visit: https://[email or web address].org/medcenter/Pages/Wellness-Resources/Aklqanuek-Xxltam-Kd sourc e-Center.aspx LDL < 100 Result Component Hyperlipidemia 56( 0 12:18 EST) No Maggie Andrade, PRODUCT LISTER HEMOGLOBIN A1C < 7.0 Result Component Type 2 diabetes mellitus ([facility]) 7.7(12/30/19 20 12:18 EST) No Maggie Andrade LPN documented as of this encounter Visit Diagnoses Diagnosis Type 2 diabetes mellitus without complication, without long-term current use of insulin ([facility])- Primary Other hyperlipidemia Essential hypertension Unspecified essential hypertension Seizure disorder ([facility]) Unspecified epilepsy without mention of intractable epilepsy Tubulovillous adenoma of colon Benign neoplasm of colon Obesity (BMI 30-39.9) Obesity, unspecified documented in this encounter Discontinued Medications Medication Sig Discontinue Reason Start Date End Da te divalproex (DEPAKOTE) 500 mg delayed release tablet take 3 tablets by mouth once daily at bedtime Reorder 04/29/2018 03/31/2019 hydroCHLOROthiazide (HYDRODIURIL) 25 mg tablet take 1 tablet by mouth once daily Reorder 04/29/2018 03/31/2019 documented as of this encounter Care Teams Yarding And Folding Machine Operator Relationship Specialty Start Date End Date Roxanna Hannah MD [address] [place] [phone] PCP - General 03/28/09 05/31/20 documented as of this encounter
--- OUTSIDE RECORDS SUMMARY | 2024-10-06 13:48 | XMS_ITS | Encounter Summary ---
Author Organization [facility] Address [address] [place] [address] Care Team Providers Care Hot Stick Man Name Role Phone Roxanna Hannah MD Primary Care Provider + Reason for Visit * Reason Comments Shoulder Pain left shoulder pain Encounter Details Date Type Department Care Team (Late st Contact Info) Description 10/24/2017 16:30 EST Office Visit [facility] Family Medicine [address] [address] Roxanna Villafuerte MD [address] [facility] [address] [place] [address] Chronic left shoulder pain (Primary Dx) Social History Tobacco Use Types [...] Sign Reading Time Taken Comments Blood Pressure 140/90 10/24/2017 1627 EST Pulse 80 10/24/2017 1627 EST Temperature - - Respiratory Rate - - Oxygen Saturation - - Inhaled Oxygen Concentration - - Weight 116.1 kg (256 lb) 10/24/2017 1627 EST Height 174.6 cm (5' 8.75) 10/24/2017 1627 EST Body Mass Index 38.08 10/24/2017 1627 EST documented in this encounter Functional Status * Because of a physical, mental, or emotional condition, does this person have difficulty doing errands alone such as visiting a doctor's office or shopping? Answer Date of Assessment Author No 10/24/2017 16:28 EST documented as of this encounter Mental Status * Because of a physical, mental, or emotional condition, does this person have serious difficulty concentrating, remembering, or making decisions? Answer Entry Date Author No 10/24/2017 16:28 EST Vaishali Rocha documented in this encounter Patient Instructions * Patient Instructions* Kathleen Villanueva MD - 10/24/2017 17:17 EST Images from the original note were not included. [facility] Patient Instructions Rotator Cuff: Exercises Your Care Instructions Here are some examples of typical rehabilitation exercises for your condition. Start each exercise slowly. Ease off the exercise if you start to have pain. Your doctor or physical therapist will tell you when you can start these exercises and which ones will work best for you. How to do the exercises Pendulum swing If you have pain in your back, do not do this exercise. 1. Hold on to a table or the back of a chair with your good arm. Then bend forward a little and letyour sore arm hang straight down. This exercise does not use the arm muscles. Rather, use your legsand your hips to create movement that makes your arm swing freely. 2. Use the movement from your hips and legs to guide the slightly swinging arm back and forth like a pendulum (or elephant trunk). Then guide it in circles that start small (about the size of a dinner plate). Make the circles a bit larger each day, as your pain allows. 3. Do this exercise for 5 minutes, 5 to 7 times each day. 4. As you have less pain, try bending over a little farther to do this exercise. This will increasethe amount of movement at your shoulder. Posterior stretching exercise 1. Hold the elbow of your injured arm with your other hand. 2. Use your hand to pull your injured arm gently up and across your body. You will feel a gentle stretch across the back of your injured shoulder. 3. Hold for at least 15 to 30 seconds. Then slowly lower your arm. 4. Repeat 2 to 4 times. Up-the-back stretch Your doctor or physical therapist may want you to wait to do this stretch until you have regained most of your range of motion and strength. You can do this stretch in different ways. Hold any of these stretches for at least 15 to 30 seconds. Repeat them 2 to 4 times. 1. Put your hand in your back pocket. Let it rest there to stretch your shoulder. 2. With your other hand, hold your injured arm (palm outward) behind your back by the wrist. Pull your arm up gently to stretch your shoulder. 3. Next, put a towel over your other shoulder. Put the hand of your injured arm behind your back. Now hold the back end of the towel. With the other hand, hold the front end of the towel in front of your body. Pull gently on the front end of the towel. This will bring your hand farther up your backto stretch your shoulder. Overhead stretch 1. Standing about an arm's length away, grasp onto a solid surface. You could use a countertop, a doorknob, or the back of a sturdy chair. 2. With your knees slightly bent, bend forward with your arms straight. Lower your upper body, and let your shoulders stretch. 3. As your shoulders are able to stretch farther, you may need to take a step or two backward. 4. Hold for at least 15 to 30 seconds. Then stand up and relax. If you had stepped back during yourstretch, step forward so you can keep your hands on the solid surface. 5. Repeat 2 to 4 times. Shoulder flexion (lying down) To make a wand for this exercise, use a piece of PVC pipe or a broom handle with the broom removed.Make the wand about a foot wider than your shoulders. 1. Lie on your back, holding a wand with both hands. Your palms should face down as you hold the wand. 2. Keeping your elbows straight, slowly raise your arms over your head. Raise them until you feel astretch in your shoulders, upper back, and chest. 3. Hold for 15 to 30 seconds. 4. Repeat 2 to 4 times. Shoulder rotation (lying down) To make a wand for this exercise, use a piece of PVC pipe or a broom handle with the broom removed.Make the wand about a foot wider than your shoulders. 1. Lie on your back. Hold a wand with both hands with your elbows bent and palms up. 2. Keep your elbows close to your body, and move the wand across your body toward the sore arm. 3. Hold for 8 to 12 seconds. 4. Repeat 2 to 4 times. Wall climbing (to the side) Avoid any movement that is straight to your side, and be careful not to arch your back. Your arm should stay about 30 degrees to the front of your side. 1. Stand with your side to a wall so that your fingers can just touch it at an angle about 30 degrees toward the front of your body. 2. Walk the fingers of your injured arm up the wall as high as pain permits. Try not to shrug your shoulder up toward your ear as you move your arm up. 3. Hold that position for a count of at least 15 to 20. 4. Walk your fingers back down to the starting position. 5. Repeat at least 2 to 4 times. Try to reach higher each time. Wall climbing (to the front) During this stretching exercise, be careful not to arch your back. 1. Face a wall, and stand so your fingers can just touch it. 2. Keeping your shoulder down, walk the fingers of your injured arm up the wall as high as pain permits. (Don't shrug your shoulder up toward your ear.) 3. Hold your arm in that position for at least 15 to 30 seconds. 4. Slowly walk your fingers back down to where you started. 5. Repeat at least 2 to 4 times. Try to reach higher each time. Shoulder blade squeeze 1. Stand with your arms at your sides, and squeeze your shoulder blades together. Do not raise yourshoulders up as you squeeze. 2. Hold 6 seconds. 3. Repeat 8 to 12 times. Scapular exercise: Arm reach 1. Lie flat on your back. This exercise is a very slight motion that starts with your arms raised (elbows straight, arms straight). 2. From this position, reach higher toward the dereje or ceiling. Keep your elbows straight. All motion should be from your shoulder blade only. 3. Relax your arms back to where you started. 4. Repeat 8 to 12 times. Arm raise to the side During this strengthening exercise, your arm should stay about 30 degrees to the front of your side. 1. Slowly raise your injured arm to the side, with your thumb facing up. Raise your arm 60 degrees at the most (shoulder level is 90 degrees). 2. Hold the position for 3 to 5 seconds. Then lower your arm back to your side. If you need to, bring your good arm across your body and place it under the elbow as you lower your injured arm. Use your good arm to keep your injured arm from dropping down too fast. 3. Repeat 8 to 12 times. 4. When you first start out, don't hold any extra weight in your hand. As you get stronger, you mayuse a 1-pound to 2-pound dumbbell or a small can of food. Shoulder flexor and extensor exercise These are isometric exercises. That means you contract your muscles without actually moving. 1. Push forward (flex): Stand facing a wall or doorjamb, about 6 inches or less back. Hold your injured arm against your body. Make a closed fist with your thumb on top. Then gently push your hand forward into the wall with about 25% to 50% of your strength. Don't let your body move backward as youpush. Hold for about 6 seconds. Relax for a few seconds. Repeat 8 to 12 times. 2. Push backward (extend): Stand with your back flat against a wall. Your upper arm should be against the wall, with your elbow bent 90 degrees (your hand straight ahead). Push your elbow gently backagainst the wall with about 25% to 50% of your strength. Don't let your body move forward as you push. Hold for about 6 seconds. Relax for a few seconds. Repeat 8 to 12 times. Scapular exercise: Wall push-ups This exercise is best done with your fingers somewhat turned out, rather than straight up and down. 1. Stand facing a wall, about 12 inches to [address] your hands on the wall at shoulder height. 3. Slowly bend your elbows and bring your face to the wall. Keep your back and hips straight. 4. Push back to where you started. 5. Repeat 8 to 12 times. 6. When you can do this exercise against a wall comfortably, you can try it against a counter. You can then slowly progress to the end of a couch, then to a sturdy chair, and finally to the floor. Scapular exercise: Retraction For this exercise, you will need elastic exercise material, such as surgical tubing or Thera-Band. 1. Put the band around a solid object at about waist level. (A bedpost will work well.) Each hand should hold an end of the band. 2. With your elbows at your sides and bent to 90 degrees, pull the band back. Your shoulder blades should move toward each other. Then move your arms back where you started. 3. Repeat 8 to 12 times. 4. If you have good range of motion in your shoulders, try this exercise with your arms lifted out to the sides. Keep your elbows at a 90-degree angle. Raise the elastic band up to about shoulder level. Pull the band back to move your shoulder blades toward each other. Then move your arms back where you started. Internal rotator strengthening exercise 1. Start by tying a piece of elastic exercise material to a doorknob. You can use surgical tubing or Thera-Band. 2. Stand or sit with your shoulder relaxed and your elbow bent 90 degrees. Your upper arm should rest comfortably against your side. Squeeze a rolled towel between your elbow and your body for comfort. This will help keep your arm at your side. 3. Hold one end of the elastic band in the hand of the painful arm. 4. Slowly rotate your forearm toward your body until it touches your belly. Slowly move it back to where you started. 5. Keep your elbow and upper arm firmly tucked against the towel roll or at your side. 6. Repeat 8 to 12 times. External rotator strengthening exercise 1. Start by tying a piece of elastic exercise material to a doorknob. You can use surgical tubing or Thera-Band. (You may also hold one end of the band in each hand.) 2. Stand or sit with your shoulder relaxed and your elbow bent 90 degrees. Your upper arm should rest comfortably against your side. Squeeze a rolled towel between your elbow and your body for comfort. This will help keep your arm at your side. 3. Hold one end of the elastic band with the hand of the painful arm. 4. Start with your forearm across your belly. Slowly rotate the forearm out away from your body. Keep your elbow and upper arm tucked against the towel roll or the side of your body until you begin to feel tightness in your shoulder. Slowly move your arm back to where you started. 5. Repeat 8 to 12 times. Follow-up care is a roberts part of your treatment and safety. Be sure to make and go to all appointments, and call your doctor if you are having problems. It's also a good idea to know your test resultsand keep a list of the medicines you take. Where can you learn more? Go to www.[employer].net/[employer] or log into your [employer] account at [email or web address]. Enter J005 in the search box to learn more about Rotator Cuff: Exercises. Current as of: February 12, 2017 Content Version: 11.4 ?? 5310-3507 [employer]. Care instructions adapted under license by [facility] If you have questions about a medical condition or this instruction, always ask your healthcare professional. [employer] disclaims any warranty or liability foryour use of this information. documented in this encounter Progress Notes * Kathleen Villanueva MD - 10/24/2017 1630 EST Progress Note Patient ID: Mario Curry is a 62 y.o. 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 Deep in the joint. - No redness or swelling, fevers, chills, numbness/tingling. Noticed he's weaker in that arm - struggles with 20 pound press. - Had lots of PT after surgery, none recently. Very sporadic when he does his PT exercises, forgetsa lot - Hasn't tried heat or ice. Takes ibuprofen (3 pills) in the am, helps for 2-3 hours - No neck pain. Chronic slight numbness of 4th and 5th digits of R hand after surgery. ROS: Denies fevers, chills, chest pain, shortness of breath, abdominal pain, leg swelling, unintentional weight loss, nausea, vomiting, rash, sore throat History: Social, family, and personal medical history reviewed and documented in the medical record. Medications: Reviewed and documented in the medical record Objective: VS: Blood pressure 140/90, pulse 80, height 174.6 cm (68.75), weight (!) 116.1 kg (256 lb). Physical Exam: Gen: sitting comfortably in exam chair Psych: alert, cooperative, pleasant HEENT: MMM.PERRL. Lungs: No increased respiratory effort GI: abdomen non distended Neuro: moves all 4 extremities. Ext: warm and well perfused. No edema. Shoulder Exam: No pain over AC joint, Biceps, SC joint, medial boarder of scapula ROM Right: Forward Flexion normal, Abduction normal, Internal Rotation normal , External Rotation normal 60 degrees ROM Left: Forward Flexion normal, Abduction normal, Internal Rotation normal External Rotation limited 15 degrees Strength Right: 5/5 Emptycan Testing 5/5 internal/external rotation Strength Left: 5/5 Emptycan Testing 5/3 internal/external rotation Special Tests: negative garcia, negative neers, positive Gerbers Agustina test negative. Assessment/Plan: Mario Curry is a 62 y.o. male who presents with acute on chronic left shoulder pain (s/p partial replacement in 2011). Due to prior partial replacement of this shoulder, he is not a candidate for joint injections of this joint. His history and exam reveal external rotator loss of strength and range of motion. He was not very interested in PT today, as he feels he has had this before and knows what exercises to do at home. He was provided a list of exercises for the rotator cuff. - Continue ice, rest, NSAIDS - Work on exercises for rotator cuff - If no improvement with home exercises, consider... - MRI of left shoulder - Neck imaging - Re-evaluation for surgery Patient seen and discussed with Dr. Noy Patel if symptoms worsen or fail to improve. Kathleen Villanueva MD 10/24/2017 21:58, PGY-3 Attestation statement: I saw and examined the patient with the resident/fellow. I agree with the findings and plan of care documented in the resident's/fellow's note. Given current weakness concern for neck pathology vs shoulder pathology. Patient not showing radicular signs on exam today. After discussion decided to start exercise program and then follow up if not improving will look further into neck pathology. Roxanna Villafuerte MD documented in this encounter Plan of Treatment [...] 10 = Very confident): 8 Barriers: None LDL < 100 Result Component Hyperlipidemia 56( 0 12:18 EST) No Maggie Andrade LPN documented as of this encounter Visit Diagnoses Diagnosis Chronic left shoulder pain- Primary Pain in joint, shoulder region documented in this encounter Discontinued Medications Medication Sig Discontinue Reason Start Date End Da te cephALEXin (KEFLEX) 500 mg capsule Take 1 Cap by mouth 4 times daily. 06/26/2017 10/25/2017 doxycycline (VIBRA-TABS) 100 mg tablet Take 1 Tab by mouth 2 times daily. 06/26/2017 10/25/2017 polyethylene glycol (GOLYTELY;NULYTELY) 236-22.74-6.74 -5.86 gram suspension Instructions mailed once procedure scheduled. Questions: [facility] Gastroenterology: [phone] or GI Doctor's Office. 08/01/2017 10/25/2017 documented as of this encounter Care Teams Hot Stick Man Relationship Specialty Start Date End Date Roxanna Hannah MD [address] [place] [phone] PCP - General 03/28/09 05/31/20 documented as of this encounter
--- OUTSIDE RECORDS SUMMARY | 2024-10-06 13:48 | XMS_ITS | Encounter Summary ---
Author Organization [facility] Address [address] [place] [address] Care Team Providers Care Plastics Design Engineer Name Role Phone Roxanna Hannah MD Primary Care Provider + Reason for Visit * Reason Comments Other Encounter Details Date Type Department Care Team (Late st Contact Info) Description 04/07/2018 [facility] Medicine [address] [address] Roxanna Hannah MD [address] [place] [phone] Other Social History Tobacco Use Types Packs/Day [...] shopping? Answer Date of Assessment Author No 03/20/2018 13:29 EDT documented as of this encounter Mental Status * Because of a physical, mental, or emotional condition, does this person have serious difficulty concentrating, remembering, or making decisions? Answer Entry Date Author No 03/20/2018 13:29 EDT Vaishali Rocha documented in this encounter Ordered Prescriptions Prescription Sig Dispense Quantity Refills Last Filled Start Date End Date divalproex (DEPAKOTE) 500 mg delayed release tablet take 3 tablets by mouth once daily at bedtime 270 Tab 1 04/08/2018 8 documented in this encounter Miscellaneous Notes * Telephone Encounter - Roxanna Hannah MD - 04/14/2018 1620 EDT We can draw depakote level at visit or he can have done before I signed order * Telephone Encounter - Brunilda Caceres RN - 04/08/2018 0925 EDT Medication(s) Requested: Depakote Preferred Pharmacy: [facility] Is patient out of medication? Unknown Last Refill Date: 05/07/17 Last Visit Date with Ordering Provider: 03/20/17 Next Non-Acute Visit Date Scheduled with Care Team: Yes. 04/29/18 Prescription refilled. BRUNILDA CACERES RN 04/08/2018 9:28 documented in this encounter Plan of Treatment [...] as of this encounter Visit Diagnoses Diagnosis Seizure disorder ([facility])- Primary Unspecified epilepsy without mention of intractable epilepsy documented in this encounter Discontinued Medications Medication Sig Discontinue Reason Start Date End Da te divalproex (DEPAKOTE) 500 mg delayed release tablet TAKE 3 TABLETS AT BEDTIME Reorder 05/07/2017 04/07/2018 documented as of this encounter Care Teams Plastics Design Engineer Relationship Specialty Start Date End Date Roxanna Hannah MD [address] [place] [phone] PCP - General 03/28/09 05/31/20 documented as of this encounter
--- OUTSIDE RECORDS SUMMARY | 2024-10-06 13:48 | XMS_ITS | Encounter Summary ---
Author Organization [facility] Address [address] [place] [address] Care Team Providers Care Fund Accountant Name Role Phone Roxanna Hannah MD Primary Care Provider + Reason for Visit * Reason Onset Date Comments Results 10/21/2017 Encounter Details Date Type Department Care Team (Late st Contact Info) Description 10/21/2017 Orders Only [address] [address] Maggie Andrade LPN Social History Tobacco Use Types Packs/Day Years [...] shopping? Answer Date of Assessment Author No 05/07/2017 15:20 EDT documented as of this encounter Mental Status * Because of a physical, mental, or emotional condition, does this person have serious difficulty concentrating, remembering, or making decisions? Answer Entry Date Author No 05/07/2017 15:20 EDT Vaishali Rocha documented in this encounter Plan [...] Procedure Name Priority Date/Time Associated Diagnosis Comments COLONOSCOPY PROCEDURE Routine 10/21/2017 16:50 EST documented in this encounter Visit Diagnoses Not on filedocumented in this encounter Orders Imaging Orders Without Results Count Last Order ed Date First Ordered Date COLONOSCOPY PROCEDURE 1 10/21/2017 documented in this encounter Care Teams Fund Accountant Relationship Specialty Start Date End Date Roxanna Hannah MD [address] [place] [phone] PCP - General 03/28/09 05/31/20 documented as of this encounter
--- OUTSIDE RECORDS SUMMARY | 2024-10-06 13:48 | XMS_ITS | Encounter Summary ---
Author Organization [facility] Address [address] [place] [address] Care Team Providers Care Cork Wirer Name Role Phone Roxanna Hannah MD Primary Care Provider + Reason for Visit * Reason Onset Date Comments Results 01/15/2018 Encounter Details Date Type Department Care Team (Late st Contact Info) Description 01/15/2018 Orders Only [address] [address] Maggie Andrade LPN Social History Tobacco Use [...] Date/Time Associated Diagnosis Comments COLONOSCOPY PROCEDURE Routine 10/31/2017 documented in this encounter Results * (ABNORMAL) COLONOSCOPY PROCEDURE (10/31/2017) Colonoscopy EXTERNAL FACILITY Comment: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 Repeat colonoscopy in 2-3 mos. Colonoscopy, External EXTERNAL FACILITY Anatomical Region Laterality Modality Endoscopy 10/31/2017 us Historical Provider GI PROCEDURE ORDERABLES F inal Result documented in this encounter Visit Diagnoses Not on filedocumented in this encounter Care Teams Cork Wirer Relationship Specialty Start Date End Date Roxanna Hannah MD [address] [place] [phone] PCP - General 03/28/09 05/31/20 documented as of this encounter
--- OUTSIDE RECORDS SUMMARY | 2024-10-06 13:48 | XMS_ITS | Encounter Summary ---
Author Organization [facility] Address [address] [place] [address] Care Team Providers Care Lighting Fixtures Decorator Name Role Phone Roxanna Hannah MD Primary Care Provider + Reason for Referral * Consult (Routine) - Specialty Report Received Specialty Diagnoses / Procedures [facility] Referred To Contact Diagnoses Type 2 diabetes mellitus without complication, without long-term current use of insulin ([facility]) Roxanna Hannah MD Phone: tel: fax: Referral ID Status Reason Start Date Expiration Date Visits Requested Visits Authorized [id number] Specialty Report Received Specialty Services Required 04/29/2018 1 1 Question Answer What areas would you like the [facility] to focus on? Diabetic Education, Nutrition Help Patient's Weight (kg) (1 lb = 0.4536 kg): 117.9 Patient's Height (cm) (1 in = 2.54 cm): 174 Comments As we discussed in your visit today, someone will be contacting you from the [facility] to schedule an appointment with you. If you do not hear from the C[facility] within a week please call the [facility] Health Team at [phone]. Reason for Visit * Reason Comments Hypertension f/u Hyperlipidemia Diabetes Encounter Details Date Type Department Care Team (Late st Contact Info) Description 04/29/2018 14:00 EDT Office Visit [address] [address] Roxanna Hannah MD [address] [place] [phone] Type 2 diabetes mellitus without complication, without long-term current use of insulin ([facility]) (Primary Dx); Benign essential HTN; Essential hypertension; Mixed hyperlipidemia; Seizure disorder ([facility]); Foul smelling urine Discharge Disposition: Auto Discharge Social History Tobacco Use Types Packs/Day Years [...] Sign Reading Time Taken Comments Blood Pressure 130/70 04/29/2018 1408 EDT Pulse 88 04/29/2018 1408 EDT Temperature 36.3 ??C (97.4 ??F) 04/29/2018 1408 EDT Respiratory Rate - - Oxygen Saturation - - Inhaled Oxygen Concentration - - Weight 117.9 kg (260 lb) 04/29/2018 1408 EDT Height 174 cm (5' 8.5) 04/29/2018 1408 EDT Body Mass Index 38.96 04/29/2018 1408 EDT documented in this encounter Functional Status * Because of a physical, mental, or emotional condition, does this person have difficulty doing errands alone such as visiting a doctor's office or shopping? Answer Date of Assessment Author No 04/29/2018 14:12 EDT documented as of this encounter Mental Status * Because of a physical, mental, or emotional condition, does this person have serious difficulty concentrating, remembering, or making decisions? Answer Entry Date Author No 04/29/2018 14:12 EDT Vaishali Rocha documented in this encounter Discharge Diagnoses Diagnosis E11.9 Type 2 diabetes mellitus without complications-E11.9[ICD-10-CM] documented in this encounter Ordered Prescriptions Prescription Sig Dispense Quantity Refills Last Filled Start Date End Date divalproex (DEPAKOTE) 500 mg delayed release tablet take 3 tablets by mouth once daily at bedtime 270 Tab 3 04/29/2018 9 simvastatin (ZOCOR) 40 mg tablet take 1 tablet by mouth every evening 90 Tab 3 04/29/2018 9 hydroCHLOROthiazid e (HYDRODIURIL) 25 mg tablet take 1 tablet by mouth once daily 90 Tab 3 04/29/2018 9 lisinopril (PRINIVIL, ZESTRIL) 5 mg tabletIndications: Benign essential HTN Take 1 Tab by mouth daily. 90 Tab 3 04/29/2018 9 documented in this encounter Discharge Disposition Disposition Code Departure Means Destination Auto Discharge documented in this encounter Progress Notes * Maggie Andrade LPN - 04/29/2018 1400 EDT Patient Education Topic: Health Care proxy Method: Handout and Verbal Taught to: Patient Barriers: None Outcomes: independent and verbalized understanding Signature: POCT urine dipstick performed. Results for orders placed or performed in visit on 04/29/18 POCT URINE DIPSTICK, CLINITEK Result Value Ref Range Color YELLOW Clarity, UA Clear Glucose Neg Neg Bilirubin Neg Neg Ketones Neg Neg Specific Jeffers 1.020 1.001 - 1.035 Blood Neg Neg pH 7.0 4.6 - 8.0 Protein Neg Neg Urobilinogen 1.0 0.2 - 1.0 E.U./dl Nitrite Neg Neg Leuk Esterase Neg Neg Tech ID [id number] Urine sample sent to lab for Umalb Dx: E11.9 * Roxanna Hannah MD - 04/29/2018 1400 EDT Subjective: Patient ID: Mario Curry is an 62 y.o. male. Chief Complaint Patient presents with ??? Hypertension f/u ??? Hyperlipidemia ??? Diabetes Hypertension This is a chronic problem. The current episode started more than 1 year ago. The problem is unchanged. The problem is controlled. Pertinent negatives include no chest pain, orthopnea, palpitations, peripheral edema or shortness of breath (only weith more activity and as he has gained wt). There areno associated agents to hypertension. Risk factors for coronary artery disease include diabetes mellitus, dyslipidemia, obesity and male gender. Past treatments include ROZINA inhibitors and diuretics. The current treatment provides moderate improvement. Compliance problems include diet (diet worse since ). There is no history of kidney disease, CAD/WI or CVA. There is no history of chronicrenal disease, sleep apnea or a thyroid problem. Hyperlipidemia This is a chronic problem. The current episode started more than 1 year ago. The problem is controlled. Recent lipid tests were reviewed and are normal. Exacerbating diseases include diabetes and obesity. He has no history of chronic renal disease. There are no known factors aggravating his hyperlipidemia. Pertinent negatives include no chest pain, focal sensory loss, myalgias or shortness of breath (only weith more activity and as he has gained wt). The current treatment provides moderate improvement of lipids. Compliance problems include adherence to diet. Risk factors for coronary artery disease include diabetes mellitus, hypertension, male sex and obesity. Diabetes He presents for his initial diabetic visit. He has type 2 diabetes mellitus. His disease course hasbeen stable (HgA1C 7.1). There are no hypoglycemic associated symptoms. Pertinent negatives for diabetes include no chest pain and no foot paresthesias. There are no hypoglycemic complications. Symptoms are stable. Pertinent negatives for diabetic complications include no CVA or heart disease. Riskfactors for coronary artery disease include diabetes mellitus, hypertension, male sex, obesity and dyslipidemia. Current diabetic treatment includes diet. He rarely participates in exercise. An ROZINA inhibitor/angiotensin II receptor alexus is being taken. Eye exam is not current (Jeovanny). He is not surprised by diabetes diagnosis, has had IGT for years Worse diet since fly Wt has gone up Agrees to see [facility] Jacinto D/O - on Depakote, no recent seizures depakote level fine 70.9 Patient Active Problem List Diagnosis ??? Routine history and physical examination of adult ??? Seizure disorder (HCC-CMS) ??? Gastroesophageal reflux disease ??? Essential hypertension ??? Hyperlipidemia ??? Allergic rhinitis ??? Male erectile disorder ??? Atypical chest pain ??? Depression ??? Anxiety ??? Type 2 diabetes mellitus without complication, without long-term current use of insulin (HCC-CMS) ??? Unspecified polyarthropathy or polyarthritis, shoulder region [...] health care facility 08/05/2002 ??? Seizure disorder ([facility]) 08/05/2002 ??? Seizures ([facility]) Current Outpatient Prescriptions on File Prior to Visit Medication Sig Dispense Refill ??? acetaminophen (TYLENOL) 650 mg tablet Take 1 Tab by mouth every 4 hours as needed for Pain. ??? aspirin 81 mg EC tablet Take 81 mg by mouth daily. ??? DOCOSAHEXANOIC ACID/EPA (FISH OIL ORAL) Take 1 Capsule by mouth daily ??? fluticasone (FLONASE) 50 mcg/actuation nasal spray Instill 2 Sprays into both nostrils daily. 16 g 2 ??? MULTIVITAMINS (MULTI-VITAMIN ORAL) Take 1 Tab by mouth daily. ??? omeprazole (PRILOSEC) 20 mg capsule TAKE 1 CAPSULE DAILY 90 Cap 3 No current facility-administered medications on file prior to visit. Allergies Allergen Reactions ??? Tegretol [Carbamazepine] Rash Social Social History Substance Use Topics ??? Smoking status: Never Smoker ??? Smokeless tobacco: Never Used ??? Alcohol use Yes Comment: 2-3 drinks per week Review of Systems Respiratory: Negative for shortness of breath (only weith more activity and as he has gained wt). Cardiovascular: Negative for chest pain, palpitations and orthopnea. Musculoskeletal: Negative for myalgias. - See HPI Objective: BP 130/70 (BP Cuff Location: Right arm, Patient Position: Sitting, BP Cuff Sizes: Adult, large) Pulse 88 Temp 36.3 ??C (97.4 ??F) (Tympanic) Ht 174 cm (68.5) Wt (!) 117.9 kg (260 lb) BMI 38.96 kg/m2 Physical Exam Constitutional: He appears well-developed and well-nourished. No distress. obese Neurological: He is alert. Coordination normal. Skin: No erythema. No pallor. Assessment: Plan: Mario was seen today for hypertension, hyperlipidemia and diabetes. Diagnoses and all orders for this visit: Type 2 diabetes mellitus without complication, without long-term current use of insulin ([facility]) Diet controlled HgA1C up to 7.1 He is frustrated with wt and is willing to meet with [facility] NUTRITION Has had difficult year with 's ,not eating as well - Microalbumin, Urine - AMB CONS/FOLLOW UP [facility] - Hemoglobin A1c (3 Months); Future Benign essential HTN At goal on low dose ROZINA, HCTZ Labs UTD Cont current management - lisinopril (PRINIVIL, ZESTRIL) 5 mg tablet; Take 1 Tab by mouth daily. Mixed hyperlipidemia On Zocor 40 mg daily See wt issue as well Will meet with [facility] NUTRITION Seizure disorder ([facility]) Well controlled with Depakote, which is in therapeutic range No change at this time Foul smelling urine No evidence infection on urine dip - POCT Urine Dipstick Other orders - Garlic capsule; Take 5 Caps by mouth daily. - hydroCHLOROthiazide (HYDRODIURIL) 25 mg tablet; take 1 tablet by mouth once daily - simvastatin (ZOCOR) 40 mg tablet; take 1 tablet by mouth every evening - divalproex (DEPAKOTE) 500 mg delayed release tablet; take 3 tablets by mouth once daily at bedtime Return in about 4 months (around 08/29/2018), or if symptoms worsen or fail to improve, for ROV after labs. documented in this encounter Plan of Treatment Scheduled Referrals Name Type Priority Associated Diagnoses Orde r Schedule AMB CONS/FOLLOW UP [facility] Outpatient Referral Routine Type 2 diabetes mellitus without complication, without long-term current use of insulin ([facility]) Ordered: 04/29/2018 documented as of this encounter Goals Goal [...] Procedure Name Priority Date/Time Associated Diagnosis Comments POCT URINE DIPSTICK, CLINITEK Routine 04/29/2018 15:01 EDT Foul smelling urine URINE [id number] NE RATIO (ACR) Routine 04/29/2018 14:33 EDT Type 2 diabetes mellitus without complication, without long-term current use of insulin ([facility]) documented in this encounter Results * HEMOGLOBIN A1C (08/11/2018 12:53 EDT) Hemoglobin A1C 6.8 % 08/12/2018 9:19 EDT [facility] Comment: Reference Range: <5.7% Normal 5.7-6.4% Prediabetes =>6.5% Diagnostic for diabetes (if confirmed) Goals for glycemic control in diabetes ADA 2017 For non adults with diabetes: ?? Target <7.0% For children and adolescents with type 1 diabetes: ?? Target <7.5% More or less stringent targets may be appropriate for individual patients. Est Avg Glucose 148 mg/dl 8 9:19 EDT [facility] Comment: eAG represents the A1c result expressed as average glucose in mg/dl. Blood specimen (specimen) BLOOD SPECIMEN / Unknown 08/11/2018 12:53 EDT 08/11/2018 19:20 EDT us Roxanna Hannah MD CHEMISTRY & BLOOD GAS OR DERABLES Final Result [facility] [address] [place] [address] * POCT URINE DIPSTICK, CLINITEK (04/29/2018 15:01 EDT) Color YELLOW 04/29/2018 14:50 EDT [facility] Clarity, UA Clear 04/29/2018 14:50 [facility] Glucose Neg Neg 04/29/2018 14:50 T [facility] Bilirubin Neg Neg 04/29/2018 14:50 T [facility] Ketones Neg Neg 04/29/2018 14:50 [facility] Specific Jeffers 1.020 1.001 - 1.035 04/29/2018 14:50 [facility] Blood Neg Neg 04/29/2018 14:50 [facility] pH 7.0 4.6 - 8.0 04/29/2018 14:50 [facility] Protein Neg Neg 04/29/2018 14:50 [facility] Urobilinogen 1.0 0.2 - 1.0 E.U./dl 04/29/2018 14:50 [facility] Nitrite Neg Neg 04/29/2018 14:50 [facility] Leuk Esterase Neg Neg 04/29/2018 14:50 [facility] loan broker ID [id number] 04/29/2018 14:50 [facility] Comment:Test performed at [facility] Urine specimen (specimen) URINE / Unknown 04/29/2018 15:01 EDT 04/29/2018 14:50 EDT us Roxanna Hannah MD POINT OF CARE TEST ORDER TSERING Final Result [facility] [address] [place] [address] * ALBUMIN, URINE (04/29/2018 14:33 EDT) Creatinine, Urn [place] 149.9 mg/dl 04/29/2018 20:48 EDT [facility] Ur Albumin mg/dl <0.6 mg/dL 04/29/20 18 20:59 EDT [facility] Comment:New Vitros 5600 Meth odology in use 03/26/2018 Urine Albumin to Creatinine Ratio <4.0 ug/mg Crea 04/29/2018 20:59 EDT [facility] Comment: Normal: <30 ug/mg creatinine Moderately increased albuminuria: 30-300 ug/mg creatinine Severly increased albuminuria: >300 ug/mg creatinine New Vitros 5600 Methodology in use 03/26/2018 Urine specimen (specimen) URINE / Unknown 04/29/2018 14:33 EDT 04/29/2018 18:29 EDT us Roxanna Hannah MD CHEMISTRY & BLOOD GAS OR DERABLES Final Result [facility] [address] [place] [address] documented in this encounter Visit Diagnoses Diagnosis Type 2 diabetes mellitus without complication, without long-term current use of insulin ([facility])- Primary Benign essential HTN Essential hypertension, benign Essential hypertension Unspecified essential hypertension Mixed hyperlipidemia Seizure disorder ([facility]) Unspecified epilepsy without mention of intractable epilepsy Foul smelling urine Other nonspecific finding on examination of urine documented in this encounter Discontinued Medications Medication Sig Discontinue Reason Start Date End Da te Cod Liver Oil oil Take 1 Cap by mouth daily. Patient Stopped Taking 04/29/2018 lisinopril (PRINIVIL, ZESTRIL) 5 mg tabletIndications:Efren gn essential HTN Take 1 Tab by mouth daily. Reorder 03/20/2018 04/29/2018 hydroCHLOROthiazide (HYDRODIURIL) 25 mg tablet take 1 tablet by mouth once daily Reorder 03/13/2018 04/29/2018 simvastatin (ZOCOR) 40 mg tablet take 1 tablet by mouth every evening Reorder 03/13/2018 04/29/2018 divalproex (DEPAKOTE) 500 mg delayed release tablet take 3 tablets by mouth once daily at bedtime Reorder 04/08/2018 04/29/2018 documented as of this encounter Historical Medications * This list may reflect changes made after this encounter. Garlic capsule Take 5 Caps by mouth daily. 12/30/2019 added in this encounter Care Teams Lighting Fixtures Decorator Relationship Specialty Start Date End Date Roxanna Hannah MD [address] [place] [phone] PCP - General 03/28/09 05/31/20 documented as of this encounter
--- OUTSIDE RECORDS SUMMARY | 2024-10-06 13:48 | XMS_ITS | Encounter Summary ---
Author Organization [facility] Address [address] [place] [address] Care Team Providers Care Brim Curler Name Role Phone Roxanna Hannah MD Primary Care Provider + Reason for Referral * Consult, Test and Treat (Routine) - Specialty Report Received Specialty Diagnoses / Procedures Referred By Nela bravo Referred To Contact General Surgery Diagnoses Tubular adenoma of colon Procedures COLONOSCOPY Roxanna Hannah MD Phone: tel: fax: Edi Kan MD Phone: tel: fax: Referral ID Status Reason Start Date Expiration Date V isits Requested Visits Authorized [id number] Specialty Report Received 08/01/2017 1 1 Reason for Visit * Reason Onset Date Comments Referral Request 07/31/2017 Encounter Details Date Type Department Care Team (Late st Contact Info) Description 07/31/[address] [address] Roxanna Hannah MD [address] [place] [phone] Referral Request Social History Tobacco Use Types Packs/Day Years [...] suspension Instructions mailed once procedure scheduled. Questions: [facility] Gastroenterology: [phone] or GI Doctor's Office. 4000 mL 08/01/2017 7 documented in this encounter Miscellaneous Notes * Telephone Encounter - Isaura Ray - 08/15/2017 1451 EDT Message left for patient, who does he want to see for general surgery in [place] for a colonoscopy consult. * Telephone Encounter - Kahlil Butler - 08/14/2017 1300 EDT Patient would like to have his colonoscopy done at [place] instead * Telephone Encounter - Michaela Moyer RN - 08/01/2017 1123 EDT Per 09/14/[address] Rosa to patient, recommendation was for repeat colonoscopy in 5 years. Patient states he would also like another referral for a chest CT put through. It was denied in February, but he would like to try again. It was originally ordered because patient had recurrent pneumonia. He is not having any symptoms currently, but would like to have the test done. * Telephone Encounter - Phyllis Pascual - 07/31/2017 1740 EDT Reason for Call: Referral Request Summary/Symptoms: Patient thinks he is due for a colonoscopy. He also would like to try to have CT Scan of of Head done. The last one that was ordered was denied by insurance and in the process of appealing. He would like that opened again. Onset and Duration? Appointment Offered? N/A Phyllis Pascual 07/31/2017 17:58 documented in this encounter Plan of Treatment Scheduled Orders Name Type Priority Associated Diagnoses Orde r Schedule COLONOSCOPY GI Routine Tubular adenoma of colon Ordered: 08/01/2017 documented as of this encounter Goals Goal [...] as of this encounter Visit Diagnoses Diagnosis Tubular adenoma of colon- Primary Benign neoplasm of colon documented in this encounter Care Teams Brim Curler Relationship Specialty Start Date End Date Roxanna Hannah MD [address] [place] [phone] PCP - General 03/28/09 05/31/20 documented as of this encounter
--- OUTSIDE RECORDS SUMMARY | 2024-10-06 13:48 | XMS_ITS | Encounter Summary ---
Author Organization [facility] Address [address] [place] [address] Care Team Providers Care Line Rider Name Role Phone Roxanna Colunga MD Primary Care Provider + Reason for Visit * Reason Onset Date Comments Results 03/12/2019 Encounter Details Date Type Department Care Team (Late st Contact Info) Description 03/12/[address] [phone] Roxanna Clounga MD [address] [place] [phone] Results Social History Tobacco Use Types Packs/Day [...] making decisions? Answer Entry Date Author No 08/11/2018 12:13 EDT Vaishali Rocha documented in this encounter Miscellaneous Notes * Telephone Encounter - Magi Cleaning MD - 03/13/2019 1853 EDT TC to patient - discussed lab results . Starting metformin 500mg daily for 10 d then 500mg BID thereafter until followup with Dr colunga and will need uptitration after. Stop simvastatin, start atorvastatin 40mg daily. May cut amlodipine in 1/2 from 5mg to 2.5mg if notices leg swelling. Would trial losartan next as he did not tolerate lisinopril and would d/c losartan. Magi Cleaning MD Family Medicine: PGY 3 Pager #[phone] 03/13/2019 18:55 * Telephone Encounter - Sherrie Plasencia RN - 03/13/2019 1528 EDT Let Pt know Dr Cleaning would be calling him today with result and plan. Sherrie Plasencia RN 03/13/2019 15:28 * Telephone Encounter - Kathleen Harrison - 03/13/2019 1521 EDT Patient is calling as he has not received a phone call yet, and is looking for results and plan. * Telephone Encounter - Magi Cleaning MD - 03/13/2019 0934 EDT Thank you, I will call him today with results and plan. Magi Cleaning MD Family Medicine: PGY 3 Pager #[phone] 03/13/2019 9:34 * Telephone Encounter - Isaura Ray - 03/12/2019 1217 EDT Patient calling for lab results done on 03/03/19, ordered by Dr. Colunga. documented in this encounter Plan of Treatment Not on file documented as of this encounter Goals Goal Patient Goal Type Associated Problems Recent Progress Patient-Stated? 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 Confidence level (1= Not very confident; 10 = Very confident): 10 Barriers: None BMI<30 General Obesity Not on track(2019 8:42 EST) Yes Roxanna Colunga MD Note: Problem Solving Goal: BMI<30 Confidence level (1= Not very confident; 10 = Very confident): 8 Barriers: None LDL < 100 Result Component Hyperlipidemia 56( 0 12:18 EST) No Maggie Andrade LPN HEMOGLOBIN A1C < 7.0 Result Component Type 2 diabetes mellitus ([facility]) 7.7(12/30/19 20 12:18 EST) No Maggie Andrade LPN documented as of this encounter Visit Diagnoses Not on filedocumented in this encounter Care Teams Line Rider Relationship Specialty Start Date End Date Roxanna Colunga MD [address] [place] [phone] PCP - General 03/28/09 05/31/20 documented as of this encounter
--- OUTSIDE RECORDS SUMMARY | 2024-10-06 13:48 | XMS_ITS | Encounter Summary ---
Author Organization [facility] Address [address] [place] [address] Care Team Providers Care Webbing Weaver Name Role Phone Roxanna Hannah MD Primary Care Provider + Reason for Visit * Reason Comments Diabetes * Consult (Routine) - Specialty Report Received Specialty Diagnoses / Procedures Referred By Nela bravo Referred To Contact Diagnoses Type 2 diabetes mellitus without complication, without long-term current use of insulin ([facility]) Roxanna Hannah MD Phone: tel: fax: Referral ID Status Reason Start Date Expiration Date Visits Requested Visits Authorized [id number] Specialty Report Received Specialty Services Required 04/29/2018 1 1 Encounter Details Date Type Department Care Team (Late st Contact Info) Description 05/09/2018 10:00 EDT Community Health Team [facility] Family [address] [address] t, [facility] Social History Tobacco Use Types Packs/Day Years [...] EDT Vaishali Rocha documented in this encounter Progress Notes * Marleen CabreraErika - 05/09/2018 1000 EDT Community Health Team Registered Dietitian Initial Encounter Date of visit: 05/09/2018 Nutrition education and counseling initial encounter with Mario Curry for diabetes, originalreferral from Roxanna Hannah MD. SUBJECTIVE: Mario states his ???energy is bad?? and that he often ???reaches for the easy thing?? when it comes to food. He notes that his passed about a year ago and she was the primary cook of the household. Pt reports that he has other friends in a similar situation with their wives passing away. Pt states that he avoids lactose and that his ???stomach is not good in the morning?? and that he cannot eat and then go to work right after due to acid reflux. Pt states he is the process of moving and the majority of his current house is packed up and will likely be that way for the next month or so, leaving him without most kitchen equipment. Nutrition: Pt states that he recently bought a wiper blender and is willing to try making smoothies in the morning. He also notes that his daughter often has smoothies and that he can learn from her how tomake them. Dietary Recall B: ???not much?? zero-water, iced tea s: (9:30) donut L: Eggs and toast or Mcgee???s sausage egg and cheese mcmuffin, coffee with 3 sugars, 3 cream s: none D: ???instant?? 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 OBJECTIVE: BMI AND WEIGHT 10/24/2017 03/20/2018 04/29/2018 Weight (lb) 256 lb 260 lb 260 lb Weight (Kg) 116.121 kg 117.935 kg 117.935 kg Body Mass Index 38.08 38.68 38.96 CHT intake: Completed Insurance MVP Preferred form of communication PHONE In general, what would you say your health is? Good Have you seen a dentist for preventive care in the last twelve months? Yes Are you a tobacco user? No Reviewed medical history, labs, and medications/supplements. Garlic, glucosamine ASSESSMENT: Nutrition Diagnosis: Altered nutrition related lab, overweight/obesity Etiology: Imbalanced meal pattern, predicted excessive carbohydrate and calorie intake Signs & Symptoms: HbA1c 7.1, BMI 38.9 Intervention: MNT/Education: Engaged patient in conversation related to positive behavior change, self-management, goal setting and action planning using motivational interviewing and active listening. - Reviewed dietary intake and physical activity. - Provided MNT for diabetes including overview of types and sources of carbohydrates, how carbohydrates impact blood sugar, the importance of balanced meals and carbohydrate portion control. Discussed components of a balanced meal and the role that healthy fats, fiber and protein play in helping tobetter control blood sugar. - Discussed MyPlate and balanced meals, snacks, and health benefits of maintaining balanced blood glucose levels throughout day. - Discussed sources of carbohydrates - Importance of breakfast, trying smoothies - Importance of including protein, healthy fats and fiber in meals. Recommendation/Plan: RD recommends pt incorporate breakfast in the form of a smoothie and to add a balanced mid morning snack. Pt was also encouraged to reach out to his daughter for help with smoothies. RD recommends 3 balanced, consistent meals per day w/ whole grains, lean protein, 5 servings non-starchy vegetables and 4 servings fruit; <10% total energy from saturated fat; <5% total energy from added sugar. Monitoring & Evaluation: RD to monitor dietary intake and physical activity, blood glucose, understanding of nutrition education and recommendations, nutrition related labs and vitals Educational materials provided: balanced plate, BS graph, what counts as a carbohydrate, Method: handout and verbal Taught to: Patient Barriers: no barriers Outcomes: Pt verbalized understanding STAGE OF CHANGE: Preparation Action plan: Goals ??? 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 ? Blood Pressure < 130/80 ? ? BMI<30 (pt-stated) Problem Solving Goal: BMI<30 Confidence level (1= Not very confident; 10 = Very confident): 8 Barriers: None ? ? LDL < 100 PATIENT IDENTIFIED GOALS: Manage diabetes and lose weight. PLAN: Pt will work on reducing sugar intake, having more balanced meals and including breakfast daily in the form of a smoothie. Pt will reach out to RD with questions. Patient's Primary Care Site: [address] Ronnie Bashir Total Time: 75 mins (15 charting, 60 in-person) Referral: none Follow up: none Status: Inactive Marleen Cabrera, MS, RD, CD Community Health Team documented in this encounter Plan of Treatment [...] on filedocumented in this encounter Care Teams Webbing Weaver Relationship Specialty Start Date End Date Roxanna Hannah MD [address] [place] [phone] PCP - General 03/28/09 05/31/20 documented as of this encounter
--- OUTSIDE RECORDS SUMMARY | 2024-10-06 13:48 | XMS_ITS | Encounter Summary ---
Author Organization [facility] Address [address] [place] [address] Care Team Providers Care Classroom Aide Name Role Phone Roxanna Hannah MD Primary Care Provider + Reason for Visit * Reason Onset Date Comments Appointment Related 06/02/2018 cancel Encounter Details Date Type Department Care Team (Late st Contact Info) Description 06/02/2018 Telephone [facility] Cardiology - [address] [place] [address] Betzaida Nova, JOSIAH [address] [facility], [address] [place] [phone] Appointment Related (cancel 06/03/18) Social History Tobacco Use Types Packs/Day Years [...] encounter Miscellaneous Notes * Telephone Encounter - Trinh Thao - 06/02/2018 0917 EDT Please cancel appt 06/03; patient will call back to reschedule documented in this encounter Plan of Treatment [...] 7.0 Result Component Type 2 diabetes mellitus ([facility]) 7.7(12/30/19 20 12:18 EST) No Maggie Andrade LPN documented as of this encounter Visit Diagnoses Not on filedocumented in this encounter Care Teams Classroom Aide Relationship Specialty Start Date End Date Roxanna Hannah MD [address] [place] [phone] PCP - General 03/28/09 05/31/20 documented as of this encounter
--- OUTSIDE RECORDS SUMMARY | 2024-10-06 13:48 | XMS_ITS | Encounter Summary ---
Author Organization [facility] Address [address] [place] [address] Care Team Providers Care Traveling Repair Accountant Name Role Phone Roxanna Hannah MD Primary Care Provider + Reason for Referral * Radiology Services (Routine) - Closed Specialty Diagnoses / Procedures Referred By Nela t Referred To Contact Diagnoses Chronic left shoulder pain Procedures SHOULDER 2 OR MORE VIEWS Roxanna Hannah MD Phone: tel: fax: Referral ID Status Reason Start Date Expiration Date Visits Re quested Visits Authorized [id number] Closed 10/21/2017 1 1 Reason for Visit * Reason Comments Shoulder Pain chronic left shoulde r pain Encounter Details Date Type Department Care Team (Late st Contact Info) Description 10/21/2017 13:00 EST Office Visit [facility] Family Medicine [address] [address] Roxanna Hannah MD [address] [place] [phone] Chronic left shoulder pain (Primary Dx); Tubular adenoma of colon Discharge Disposition: Auto Discharge Social History Tobacco [...] Sign Reading Time Taken Comments Blood Pressure 142/86 10/21/2017 1259 EST Pulse 60 10/21/2017 1259 EST Temperature - - Respiratory Rate 16 10/21/2017 1259 EST Oxygen Saturation - - Inhaled Oxygen Concentration - - Weight 115.7 kg (255 lb) 10/21/2017 1259 EST Height - - Body Mass Index 37.93 10/24/2016 1228 EST documented in this encounter Functional Status [...] documented in this encounter Discharge Diagnoses Diagnosis Z96.612 Presence of left artificial shoulder joint-Z96.612[ICD-10-CM] M25.512 Pain in left shoulder-M25.512[ICD-10-CM] G89.29 Other chronic pain-G89.29[ICD-10-CM] documented in this encounter Discharge Disposition Disposition Code Departure Means Destination Auto Discharge documented in this encounter Progress Notes * Roxanna Hannah MD - 10/21/2017 1300 EST Subjective: Patient ID: Mario Curry is an 62 y.o. male. Chief Complaint Patient presents with ??? Shoulder Pain chronic left shoulder pain HPI Here for acute visit Has chronic left shoulder pain, s/p hemiarthroplasty years ago Past few months more uncomfortable, especially with external rotation Few weeks ago had episode both forearms and hands seemed to just go blank Not quite numb Just could not really use This lasted few minutes Maybe happened one more time, less intense No neck pain or pain that seems to radiate from neck into shoulder or LUE Has baseline left 5th finger numbness No weakness now Patient Active Problem List Diagnosis ??? Routine history and physical examination of adult ??? [facility] ??? Gastroesophageal reflux disease ??? Essential hypertension ??? Hyperlipidemia ??? Allergic rhinitis ??? Male erectile disorder ??? Atypical chest pain ??? Impaired glucose tolerance ??? Depression ??? Anxiety ??? Impaired glucose tolerance ??? Unspecified polyarthropathy or polyarthritis, shoulder region ??? Hydrocele ??? Obesity, Class I, BMI 30-34.9 ??? Tubular adenoma of colon Past Medical History: Diagnosis Date ??? Abnormal glucose tolerance test 03/09/2009 ??? Allergic rhinitis 03/19/2007 ??? Erectile dysfunction ??? Essential hypertension 10/24/2004 ??? GERD (gastroesophageal reflux disease) 08/05/2002 ??? Hyperlipidemia 01/31/2005 ??? Impaired glucose tolerance 10/03/2011 ??? Routine general medical examination at [facility] care facility 08/05/2002 ??? Se[place] disorder [place] 08/05/2002 ??? Se[place] Current Outpatient Prescriptions on File Prior to Visit Medication Sig Dispense Refill ??? acetaminophen (TYLENOL) 650 mg tablet Take 1 Tab by mouth every 4 hours as needed for Pain. ??? aspirin 81 mg EC tablet Take 81 mg by mouth daily. ??? cephALEXin (KEFLEX) 500 mg capsule Take 1 Cap by mouth 4 times daily. (Patient not taking: Reported on 10/21/2017) 28 Cap 1 ??? Cod Liver Oil oil Take 1 Cap by mouth daily. ??? divalproex (DEPAKOTE) 500 mg delayed release tablet TAKE 3 TABLETS AT BEDTIME 270 Tab 3 ??? DOCOSAHEXANOIC ACID/EPA (FISH OIL ORAL) Take 1 Capsule by mouth daily ??? doxycycline (VIBRA-TABS) 100 mg tablet Take 1 Tab by mouth 2 times daily. (Patient not taking: Reported on 10/21/2017) 14 Tab 1 ??? fluticasone (FLONASE) 50 mcg/actuation nasal spray Instill 2 Sprays into both nostrils daily. 16 g 2 ??? hydroCHLOROthiazide (HYDRODIURIL) 25 mg tablet Take 1 Tab by mouth daily. 90 Tab 3 ??? MULTIVITAMINS (MULTI-VITAMIN ORAL) Take 1 Tab by mouth daily. ??? omeprazole (PRILOSEC) 20 mg capsule TAKE 1 CAPSULE DAILY 90 Cap 3 ??? polyethylene glycol (GOLYTELY;NULYTELY) 236-22.74-6.74 -5.86 gram suspension Instructions mailed once procedure scheduled. Questions: [facility] Gastroenterology: [phone] or GI Doctor's Office. (Patient not taking: Reported on 10/21/2017) 4000 mL 0 ??? simvastatin (ZOCOR) 40 mg tablet TAKE 1 TABLET EVERY EVENING 90 Tab 3 No current facility-administered medications on file prior to visit. Allergies Allergen Reactions ??? Tegretol [Carbamazepine] Rash Social Social History Substance Use Topics ??? Smoking status: Never Smoker ??? Smokeless tobacco: Never Used ??? Alcohol use Yes Comment: 2-3 drinks per week ROS - See HPI Objective: BP (!) 142/86 Pulse 60 Resp 16 Wt (!) 115.7 kg (255 lb) BMI 37.93 kg/m2 Physical Exam Constitutional: He appears well-developed and well-nourished. No distress. Eyes: Conjunctivae are normal. No scleral icterus. Musculoskeletal: He exhibits no edema or tenderness. Left shoulder: He exhibits normal range of motion, no tenderness, no bony tenderness, no swelling and no deformity. Neurological: He is alert. Coordination normal. Skin: No erythema. No pallor. Psychiatric: He has a normal mood and affect. Left shoulder XRAY Findings: ?? Three-view left shoulder compared to 2012. Previously seen left ?? shoulder arthroplasty is again seen. Hardware appears intact. No ?? acute fracture or dislocation is seen. Assessment: Plan: Mario was seen today for shoulder pain. Diagnoses and all orders for this visit: Chronic left shoulder pain XRAY without obvious hardware problem Might benefit from formal PT vs REF back to [facility] or to see Dr. Villafuerte here and possible steroid injection - SHOULDER 2 OR MORE VIEWS Tubular adenoma of colon High grade dysplasia, waiting to hear back from Dr. Kan about plan documented in this encounter Plan of Treatment [...] Procedure Name Priority Date/Time Associated Diagnosis Comments SHOULDER 2 OR MORE VIEWS Routine 10/21/2017 13:29 EST Chronic left shoulder pain documented in this encounter Results * SHOULDER 2 OR MORE VIEWS (10/21/2017 13:29 EST) Anatomical Region Laterality Modality Other 10/21/2017 13:2 9 EST 10/21/2017 14:16 EST Narrative 10/21/2017 14:16 EST SHOULDER 2 OR MORE VIEW ??10/21/2017 1:29 PM Clinical History/Comments: M25.512-Pain in left gsilhufe-XTZ-75 G89.29-Other chronic pain-ICD-10; chronic left shoulder pain, acute now. Findings: Three-view left shoulder compared to 2011. Previously seen left shoulder arthroplasty is again seen. Hardware appears intact. No acute fracture or dislocation is seen. Procedure Note Eliecer Mobley MD - 10/21/2017 SHOULDER 2 OR MORE VIEW 10/21/2017 1:29 PM Clinical History/Comments: M25.512-Pain in left dyxqalpr-UCY-78 G89.29-Other chronic pain-ICD-10; chronic left shoulder pain, acute now. Findings: Three-view left shoulder compared to 2011. Previously seen left shoulder arthroplasty is again seen. Hardware appears intact. No acute fracture or dislocation is seen. Roxanna Hannah MD IMG DIAGNOSTIC IMAGING O RDERABLES Final Result documented in this encounter Visit Diagnoses Diagnosis Chronic left shoulder pain- Primary Pain in joint, shoulder region Tubular adenoma of colon Benign neoplasm of colon documented in this encounter Care Teams Traveling Repair Accountant Relationship Specialty Start Date End Date Roxanna Hannah MD [address] [place] [phone] PCP - General 03/28/09 05/31/20 documented as of this encounter
--- OUTSIDE RECORDS SUMMARY | 2024-10-06 13:48 | XMS_ITS | Encounter Summary ---
Author Organization [facility] Address [address] [place] [address] Care Team Providers Care Right Of Way Appraiser Name Role Phone Roxanna Hannah MD Primary Care Provider + Reason for Visit * Reason Onset Date Comments Paperwork request 05/14/2017 Encounter Details Date Type Department Care Team (Late st Contact Info) Description 05/14/[address] [phone] Roxanna Hannah MD [address] [place] [phone] Paperwork request Social History Tobacco Use Types Packs/Day Years [...] encounter Miscellaneous Notes * Telephone Encounter - Hallie Parisi - 05/14/2017 1430 EDT Left message on machine - we have form that needs to be filled out by patient to submit to his insurance for an appeal to his insurance for the CT Chest that has been denied. I will leave the form atthe desk clerks supervisor. Return to Hallie Reynoso when done. documented in this encounter Plan of Treatment [...] on filedocumented in this encounter Care Teams Right Of Way Appraiser Relationship Specialty Start Date End Date Roxanna Hannah MD [address] [place] [phone] PCP - General 03/28/09 05/31/20 documented as of this encounter
--- OUTSIDE RECORDS SUMMARY | 2024-10-06 13:48 | XMS_ITS | Encounter Summary ---
Author Organization [facility] Address [address] [place] [address] Care Team Providers Care Roof Cement And Paint Maker Name Role Phone Roxanna Hannah MD Primary Care Provider + Reason for Visit * Reason Comments Other Encounter Details Date Type Department Care Team (Late st Contact Info) Description 03/12/2018 [facility] Medicine [address] [address] Roxanna Hannah MD [address] [place] [phone] Other Social History Tobacco Use Types Packs/Day [...] Refills Last Filled Start Date End Date simvastatin (ZOCOR) 40 mg tablet take 1 tablet by mouth every evening 90 Tab 03/13/2018 8 hydroCHLOROthiazid e (HYDRODIURIL) 25 mg tablet take 1 tablet by mouth once daily 90 Tab 03/13/2018 8 documented in this encounter Miscellaneous Notes * Telephone Encounter - Nii Stark RN - 03/13/2018 1040 EDT All documentation reviewed and approved. NII STARK RN 03/13/2018 10:40 * Telephone Encounter - Heydi Adams - 03/13/2018 1030 EDT Left a message on patients voicemail asking thar he contact the office to schedule and appointment within the next 90 days to follow up for HTN. Please refill medications. * Telephone Encounter - Brunilda Caceres RN - 03/12/2018 1621 EDT Medication(s) Requested: Hydrochlorothiazide, Zocor Preferred Pharmacy: [facility] Is patient out of medication? Unknown Last Refill Date: 03/05/17 Last Visit Date with Ordering Provider: 10/24/17 Next Non-Acute Visit Date Scheduled with Care Team: No. Prescriptions approved. BRUNILDA CACERES RN 03/12/2018 16:28 documented in this encounter Plan of Treatment [...] Da te hydroCHLOROthiazide (HYDRODIURIL) 25 mg tablet Take 1 Tab by mouth daily. Reorder 03/05/2017 03/12/2018 simvastatin (ZOCOR) 40 mg tablet TAKE 1 TABLET EVERY EVENING Reorder 03/05/2017 03/12/2018 documented as of this encounter Care Teams Roof Cement And Paint Maker Relationship Specialty Start Date End Date Roxanna Hannah MD [address] [place] [phone] PCP - General 03/28/09 05/31/20 documented as of this encounter
--- OUTSIDE RECORDS SUMMARY | 2024-10-06 13:48 | XMS_ITS | Encounter Summary ---
Author Organization [facility] Address [address] [place] [address] Care Team Providers Care Camp Assistant Name Role Phone Roxanna Hannah MD Primary Care Provider + Reason for Referral * Radiology Services (Routine) - New Request Specialty Diagnoses / Procedures Referred By Contalexis t Referred To Contact Diagnoses Chronic midline thoracic back pain Procedures THORACIC SPINE 2-3 VIEWS Roxanna Hannah MD Phone: tel: fax: Referral ID Status Reason Start Date Expiration Date V isits Requested Visits Authorized [id number] New Request 08/11/2018 1 1 Reason for Visit * Reason Comments Diabetes f/u Hypertension Encounter Details Date Type Department Care Team (Late st Contact Info) Description 08/11/2018 12:15 EDT Office Visit [facility] Medicine [address] [address] Roxanna Hannah MD [address] [place] [phone] Type 2 diabetes mellitus without complication, without long-term current use of insulin ([facility]) (Primary Dx); Mixed hyperlipidemia; Essential hypertension; Chronic midline thoracic back pain; Need for Streptococcus pneumoniae vaccination Discharge Disposition: Auto Discharge Social History Tobacco [...] Sign Reading Time Taken Comments Blood Pressure 108/80 08/11/2018 1212 EDT Pulse 80 08/11/2018 1212 EDT Temperature 37.2 ??C (99 ??F) 08/11/2018 1212 EDT Respiratory Rate - - Oxygen Saturation - - Inhaled Oxygen Concentration - - Weight 115.7 kg (255 lb) 08/11/2018 1212 EDT Height 175.3 cm (5' 9) 08/11/2018 1212 EDT Body Mass Index 37.66 08/11/2018 1212 EDT documented in this encounter Functional Status [...] Entry Date Author No 08/11/2018 12:13 EDT Aj Vaishali mcgrath documented in this encounter Discharge Diagnoses Diagnosis E11.9 Type 2 diabetes mellitus without complications-E11.9[ICD-10-CM] documented in this encounter Patient Instructions * Patient Instructions* Maggie Andrade LPN - 08/11/2018 12:15 EDT Please check with your insurance co. Regarding cost of PPSV-23 (Pneumococcal-23) vaccine. documented in this encounter Discharge Disposition Disposition Code Departure Means Destination Auto Discharge documented in this encounter Progress Notes * Penelope Khalil LPN - 08/11/2018 1215 EDT Venipuncture performed for A1C Per orders of Dr. Hannah Diagnosis of E11.9 PENELOPE KHALIL LPN 08/11/2018 13:31 * Roxanna Hannah MD - 08/11/2018 1215 EDT Subjective: Patient ID: Mario Curry is an 63 y.o. male. Chief Complaint Patient presents with ??? Diabetes f/u ??? Hypertension Diabetes He presents for his follow-up diabetic visit. He has type 2 diabetes mellitus. His disease course has been stable (HgA1C in April 7.1). There are no hypoglycemic associated symptoms. There are no diabetic associated symptoms. Pertinent negatives for diabetes include no chest pain, no fatigue and no foot paresthesias. There are no hypoglycemic complications. Symptoms are stable. Pertinent negativesfor diabetic complications include no CVA or heart disease. Risk factors for coronary artery disease include diabetes mellitus, dyslipidemia, hypertension, male sex and obesity. Current diabetic treatment includes diet. He is compliant with treatment most of the time. He is following a generally healthy diet. He participates in exercise three times a week. An ROZINA inhibitor/angiotensin II receptorblocker is being taken. He does not see a lace and textiles restorer.Eye exam is current. Hypertension This is a chronic problem. The current episode started more than 1 year ago. The problem is unchanged. The problem is controlled. Pertinent negatives include no chest pain, peripheral edema or shortness of breath. (In [place] had some mid back pain and bilat hand numbness, pain radiated into chest, feels might be pinched nerve) There are no associated agents to hypertension. Risk factors for coronary artery disease include diabetes mellitus, dyslipidemia, obesity and male gender. There is no history of kidney disease, CAD/LA or CVA. There is no history of chronic renal disease, sleep apnea or a thyroid problem. [...] focal sensory loss, myalgias or shortness of breath. Current antihyperlipidemic treatment includes statins. The current treatment provides moderate improvement of lipids. There are no compliance problems. Risk factors for coronary artery disease include diabetes mellitus, dyslipidemia, hypertension, male sex and obesity. Mid back pain - almost constant Will get worse and radiate through to chest and cause hand numbness CXR in end April ([facility]) showed mild thoracic DJD changes Patient Active Problem List Diagnosis ??? Routine history and physical examination of adult ??? Seizure disorder ([facility]) ??? Gastroesophageal reflux disease ??? Essential hypertension ??? Hyperlipidemia ??? Allergic rhinitis ??? Male erectile disorder ??? Atypical chest pain ??? Depression ??? Anxiety ??? Type 2 diabetes mellitus without complication, without long-term current use of insulin ([facility]) ??? Unspecified polyarthropathy or polyarthritis, shoulder region [...] health care facility 08/05/2002 ??? Seizure disorder ([facility]) 08/05/2002 ??? Seizures ([facility]) Current Outpatient Prescriptions on File Prior to Visit Medication Sig Dispense Refill ??? acetaminophen (TYLENOL) 650 mg tablet Take 1 Tab by mouth every 4 hours as needed for Pain. ??? aspirin 81 mg EC tablet Take 81 mg by mouth daily. ??? divalproex (DEPAKOTE) 500 mg delayed release tablet take 3 tablets by mouth once daily at bedtime 270 Tab 3 ??? DOCOSAHEXANOIC ACID/EPA (FISH OIL ORAL) Take 1 Capsule by mouth daily ??? fluticasone (FLONASE) 50 mcg/actuation nasal spray Instill 2 Sprays into both nostrils daily. 16 g 2 ??? Garlic capsule Take 5 Caps by mouth daily. ??? hydroCHLOROthiazide (HYDRODIURIL) 25 mg tablet take 1 tablet by mouth once daily 90 Tab 3 ??? lisinopril (PRINIVIL, ZESTRIL) 5 mg tablet Take 1 Tab by mouth daily. 90 Tab 3 ??? MULTIVITAMINS (MULTI-VITAMIN ORAL) Take 1 Tab by mouth daily. ??? omeprazole (PRILOSEC) 20 mg capsule TAKE 1 CAPSULE DAILY 90 Cap 3 ??? simvastatin (ZOCOR) 40 mg tablet take 1 tablet by mouth every evening 90 Tab 3 No current facility-administered medications on file prior to visit. Allergies Allergen Reactions ??? Tegretol [Carbamazepine] Rash Social Social History Substance Use Topics ??? Smoking status: Never Smoker ??? Smokeless tobacco: Never Used ??? Alcohol use Yes Comment: 2-3 drinks per week Review of Systems Constitutional: Negative for fatigue. Respiratory: Negative for shortness of breath. Cardiovascular: Negative for chest pain. Musculoskeletal: Negative for myalgias. - See HPI Objective: BP 108/80 (BP Cuff Location: Right arm, Patient Position: Sitting, BP Cuff Sizes: Adult, large) Pulse 80 Temp 37.2 ??C (99 ??F) (Tympanic) Ht 175.3 cm (69) Wt (!) 115.7 kg (255 lb) BMI 37.66 kg/m2 Physical Exam Constitutional: He appears well-developed and well-nourished. No distress. Eyes: No scleral icterus. Cardiovascular: Pulses: Dorsalis pedis pulses are 2+ on the right side, and 2+ on the left side. Feet: Right Foot: Protective Sensation: 4 sites tested. 4 sites sensed. Skin Integrity: Negative for ulcer, blister, skin breakdown or erythema. Left Foot: Protective Sensation: 4 sites tested. 4 sites sensed. Skin Integrity: Negative for ulcer, blister, skin breakdown or erythema. Neurological: He is alert. Coordination normal. Skin: No erythema. No pallor. Assessment: Plan: Mario was seen today for diabetes and hypertension. Diagnoses and all orders for this visit: Type 2 diabetes mellitus without complication, without long-term current use of insulin ([facility]) Will see what HgA1C is today DM foot exam today Consider adding Metformin if Hga1C > 7.4 - Hemoglobin A1c (3 Months) Mixed hyperlipidemia On Zocor 40 mg daily Working on diet changes Essential hypertension At goal No change at this time Chronic midline thoracic back pain Likely arthritis Will go to [facility] for thoracic XRAY - THORACIC SPINE 2-3 VIEWS Need for Streptococcus pneumoniae vaccination - Pneumococcal polysaccharide (PPSV23) vaccine (PNEIUMOVAX-23) 23-valent greater than or equal to 2yo subcutaneous/IM Return in about 4 months (around 12/11/2018), or if symptoms worsen or fail to improve, for ROV. documented in this encounter Plan of Treatment Scheduled Orders Name Type Priority Associated Diagnoses Orde r Schedule THORACIC SPINE 2-3 VIEWS Imaging Routine Chronic midline thoracic back pain Ordered: 08/11/2018 documented as of this encounter Goals Goal [...] 7.0 Result Component Type 2 diabetes mellitus ([facility]) 7.7(12/30/19 20 12:18 EST) No Maggie Andrade LPN documented as of this encounter Procedures Procedure Name Priority Date/Time Associated Diagnosis Comments HEMOGLOBIN A1C Routine 08/11/2018 12:53 EDT Type 2 diabetes mellitus without complication, without long-term current use of insulin ([facility]) documented in this encounter Results * HEMOGLOBIN A1C (08/11/2018 12:53 EDT) Hemoglobin A1C 6.8 % 08/12/2018 9:19 EDT [facility] Comment: Reference Range: <5.7% Normal 5.7-6.4% Prediabetes =>6.5% Diagnostic for diabetes (if confirmed) Goals for glycemic control in diabetes ADA 2017 For non adults with diabetes: ?? Target <7.0% For children and adolescents with type 1 diabetes: ?? Target <7.5% More or less stringent targets may be appropriate for individual patients. Est Avg Glucose 148 mg/dl 8 9:19 EDT [facility] Comment: eAG represents the A1c result expressed as average glucose in mg/dl. Blood specimen (specimen) BLOOD SPECIMEN / Unknown 08/11/2018 12:53 EDT 08/11/2018 19:20 EDT us Roxanna Hannah MD CHEMISTRY & BLOOD GAS OR DERABLES Final Result [facility] [address] [place] [address] documented in this encounter Visit Diagnoses Diagnosis Type 2 diabetes mellitus without complication, without long-term current use of insulin ([facility])- Primary Mixed hyperlipidemia Essential hypertension Unspecified essential hypertension Chronic midline thoracic back pain Need for Streptococcus pneumoniae vaccination Need for prophylactic vaccination against streptococcus pneumoniae (pneumococcus) documented in this encounter Orders Immunization/Injection Count Last Ordered Date First Ordered Date PNEUMOCOCCAL POLYSACCHARIDE (PPSV23) VACCINE (PNEUMOVAX-23) 23-VALENT =>2YO SQ/IM 1 08/11/2018 documented in this encounter Care Teams Camp Assistant Relationship Specialty Start Date End Date Roxanna Hannah MD [address] [place] [phone] PCP - General 03/28/09 05/31/20 documented as of this encounter
--- OUTSIDE RECORDS SUMMARY | 2024-10-06 13:48 | XMS_ITS | Encounter Summary ---
Author Organization [facility] Address [address] [place] [address] Care Team Providers Care Tunnel Kiln Operator Name Role Phone Roxanna Hannah MD Primary Care Provider + Reason for Visit * Reason Comments Skin Problem ? recurrent staph in fection on left wrist Encounter Details Date Type Department Care Team (Late st Contact Info) Description 06/26/2017 15:00 EDT Office Visit [address] [id number] Tuan Adrian MD Cutaneous abscess of left upper extremity (Primary Dx) Discharge Disposition: Auto Discharge Social History Tobacco [...] Sign Reading Time Taken Comments Blood Pressure 128/84 06/26/2017 1502 EDT Pulse 68 06/26/2017 1502 EDT Temperature - - Respiratory Rate 18 06/26/2017 1502 EDT Oxygen Saturation - - Inhaled Oxygen Concentration - - Weight 114.3 kg (252 lb) 06/26/2017 1502 EDT Height - - Body Mass Index 37.49 10/24/2016 1228 EST documented in this encounter [...] documented in this encounter Discharge Diagnoses Diagnosis L02.414 Cutaneous abscess of left upper limb-L02.414[ICD-10-CM] documented in this encounter Ordered Prescriptions Prescription Sig Dispense Quantity Refills Last Filled Start Date End Date doxycycline (VIBRA-TABS) 100 mg tablet Take 1 Tab by mouth 2 times daily. 14 Tab 1 06/26/2017 10/25/2017 cephALEXin (KEFLEX) 500 mg capsule Take 1 Cap by mouth 4 times daily. 28 Cap 1 06/26/2017 10/25/2017 documented in this encounter Discharge Disposition Disposition Code Departure Means Destination Auto Discharge documented in this encounter Progress Notes * Tuan Adrian MD - 06/26/2017 1500 EDT Subjective: Patient ID: Mario Curry is an 62 y.o. male. Chief Complaint Patient presents with ??? Skin Problem ? recurrent staph infection on left wrist HPI Comments: Comes in for recurrent episode of redness, swelling, and pustules on the distal rightforearm just above the wrist. Exact same location where he had the same appearance 1 year ago. After some failed treatments he received a double antibiotic from Dr. Ochoa and it cleared completely, only to return this year at the same time of year. 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 Wears gloves whenever exposed to manure. Last year he was on steroids at the time of this developed. Feels well systemically Patient Active Problem List Diagnosis ??? Routine history and physical examination of adult ??? Seizure disorder ??? Gastroesophageal reflux disease ??? Essential hypertension ??? Hyperlipidemia ??? Allergic rhinitis ??? Male erectile disorder ??? Atypical chest pain ??? Impaired glucose tolerance ??? Depression ??? Anxiety ??? Impaired glucose tolerance ??? Unspecified polyarthropathy or polyarthritis, shoulder region ??? Hydrocele ??? Obesity, Class I, BMI 30-34.9 Past Medical History: Diagnosis Date ??? Abnormal glucose tolerance test 03/09/2009 ??? Allergic rhinitis 03/19/2007 ??? Erectile dysfunction ??? Essential hypertension 10/24/2004 ??? GERD (gastroesophageal reflux disease) 08/05/2002 ??? Hyperlipidemia 01/31/2005 ??? Impaired glucose tolerance 10/03/2011 ??? Routine general medical examination at health care facility 08/05/2002 ??? Seizure disorder 08/05/2002 ??? Seizures Current Outpatient Prescriptions on File Prior to Visit Medication Sig Dispense Refill ??? acetaminophen (TYLENOL) 650 mg tablet Take 1 Tab by mouth every 4 hours as needed for Pain. ??? aspirin 81 mg EC tablet Take 81 mg by mouth daily. ??? Cod Liver Oil oil Take 1 [...] 3 ??? simvastatin (ZOCOR) 40 mg tablet TAKE 1 TABLET EVERY EVENING 90 Tab 3 No current facility-administered medications on file prior to visit. Allergies Allergen Reactions ??? Tegretol [Carbamazepine] Rash Social Social History Substance Use Topics ??? Smoking status: Never Smoker ??? Smokeless tobacco: Never Used ??? Alcohol use Yes Comment: 2-3 drinks per week Review of Systems Constitutional: Negative for chills, fever and malaise/fatigue. Respiratory: Negative for cough. Cardiovascular: Negative for chest pain. Gastrointestinal: Negative for abdominal pain, diarrhea, nausea and vomiting. Skin: Positive for rash. Negative for itching. Neurological: Negative for dizziness, weakness and headaches. - See HPI Objective: BP 128/84 (BP Cuff Location: Right arm) Pulse 68 Resp 18 Wt (!) 114.3 kg (252 lb) BMI 37.49kg/m2 Physical Exam Constitutional: He is oriented to person, place, and time. He appears well- developed and well-nourished. No distress. HENT: Mouth/Throat: Mucous membranes are moist. Eyes: Conjunctivae are normal. Cardiovascular: Normal rate and regular rhythm. Pulmonary/Chest: Effort normal and breath sounds normal. Neurological: He is alert and oriented to person, place, and time. Skin: He is not diaphoretic. Erythema and edema of distal right forearm measuring about 2 x 3 cm. One distinct pustule and no vesicles Psychiatric: He has a normal mood and affect. His behavior is normal. Reviewing last year's culture, the lesion grew staph coag negative Assessment: Plan: Mario was seen today for skin problem. Diagnoses and all orders for this visit: Cutaneous abscess of left upper extremity - not clear other than heat and sweat what might cause this recurrence every summer x 2. Will treat empirically as before Since he tolerated the dual antibiotics and recovered quickly - Bacterial Culture/Smear, Other (from unroofing the pustule on his wrist) - cephALEXin (KEFLEX) 500 mg capsule; Take 1 Cap by mouth 4 times daily. - doxycycline (VIBRA-TABS) 100 mg tablet; Take 1 Tab by mouth 2 times daily. - Call him to check on progress when culture available - He will call if not improving in 48 hours * Tuan Adrian MD - 06/26/2017 1500 EDT Patient informed of culture results. He says he is improving on his current antibiotics - he is to call if it fails to resolve and can be considered for treatment with cephalexin. documented in this encounter Plan of Treatment [...] Procedure Name Priority Date/Time Associated Diagnosis Comments BACTERIAL CULTURE/SMEAR Routine 06/26/2017 15:22 EDT Cutaneous abscess of left upper extremity documented in this encounter Results * BACTERIAL CULTURE/SMEAR, OTHER (06/26/2017 15:22 EDT) Gram Smear Result Few Polys 06/26/2017 22:36 EDT [facility] Gram Smear Result Few Gram positive cocci 06/26/2017 22:36 EDT [facility] Result Mod STAPHYLOCOCC US AUREUS 06/28/2017 9:05 EDT [facility] Specimen of unknown material (specimen) ABSCESS MORPHOLOGY / Unknown 06/26/2017 15:22 EDT 06/26/2017 20:11 EDT Comment:Specimen submitted o n a flocked swab. Narrative Organism Antibiotic Method Susceptibility Mod staphylococcus aureus Susceptibility comment SUSCEPTIBILITY (HASEEB) Mod staphylococcus aureus Susceptibility comment SUSCEPTIBILITY (HASEEB) Susceptible to nafcillin, cephalosporins and other beta lactam antibiotics (mecA gene product absent). Mod staphylococcus aureus Oxacillin SUSCEPTIBILITY (HASEEB) Susceptible Mod staphylococcus aureus Cefazolin SUSCEPTIBILITY (HASEEB) Susceptible Mod staphylococcus aureus Vancomycin SUSCEPTIBILITY (HASEEB) Susceptible Mod staphylococcus aureus Erythromycin SUSCEPTIBILITY (HASEEB) Susceptible Mod staphylococcus aureus Clindamycin SUSCEPTIBILITY (HASEEB) Susceptible Mod staphylococcus aureus Ciprofloxacin SUSCEPTIBILITY (HASEEB) Susceptible Mod staphylococcus aureus Tetracycline SUSCEPTIBILITY (HASEEB) Susceptible Mod staphylococcus aureus Trimethoprim-Sulfamet hoxazole SUSCEPTIBILITY (HASEEB) Susceptible Tuan Adrian MD MICROBIOLOGY - GENERAL ORDERAB LES Final Result [facility] [address] [place] [address] documented in this encounter Visit Diagnoses Diagnosis Cutaneous abscess of left upper extremity- Primary Cellulitis and abscess of upper arm and forearm documented in this encounter Discontinued Medications Medication Sig Discontinue Reason Start Date End Da te desoximetasone (TOPICORT) 0.25 % cream Apply topically 2 times daily. Patient Stopped Taking 06/22/2016 06/26/2017 documented as of this encounter Care Teams Tunnel Kiln Operator Relationship Specialty Start Date End Date Roxanna Hannah MD [address] [place] [phone] PCP - General 03/28/09 05/31/20 documented as of this encounter
--- OUTSIDE RECORDS SUMMARY | 2024-10-06 13:48 | XMS_ITS | Encounter Summary ---
Author Organization [facility] Address [address] [place] [address] Care Team Providers Care Food Sampler Name Role Phone Roxanna Hannah MD Primary Care Provider + Reason for Visit * Reason Comments Skin Lesion Pt complains of lesi on on right latter-day. It has been present for several years but recently changed. Encounter Details Date Type Department Care Team (Late st Contact Info) Description 12/30/2019 11:30 EST Office Visit [address] [phone] Roxanna Hannah MD [address] [place] [address] [phone] Skin lesion of face (Primary Dx); Type 2 diabetes mellitus without complication, without long-term current use of insulin ([facility]); Essential hypertension; Other hyperlipidemia; Seizure disorder ([facility]) Social History Tobacco Use Types Packs/Day Years [...] Sign Reading Time Taken Comments Blood Pressure 152/84 12/30/2019 1121 EST Pulse 86 12/30/2019 1121 EST Temperature 36.4 ??C (97.6 ??F) 12/30/2019 1121 EST Respiratory Rate - - Oxygen Saturation - - Inhaled Oxygen Concentration - - Weight 115.7 kg (255 lb) 12/30/2019 1121 EST Height 174 cm (5' 8.5) 12/30/2019 1121 EST Body Mass Index 38.21 12/30/2019 1121 EST documented in this encounter Functional Status [...] Author No 12/30/2019 11:25 EST Aj Vaishali mcgrath documented in this encounter Patient Instructions * Patient Instructions* Roxanna Hannah MD - 12/30/2019 11:30 EST Trial increasing AMLODIPINE (NORVASC) to 5 mg tablet daily documented in this encounter Progress Notes * Roxanna Hannah MD - 12/30/2019 1130 EST Images from the original note were not included. Subjective: Patient ID: Mario Curry is an 64 y.o. male. Chief Complaint Patient presents with ??? Skin Lesion Pt complains of lesion on right latter-day. It has been present for several years but recently changed. HPI Here for acute visit but also overdue for DM, HTN and HLD management Right latter-day skin lesion Has had for years Now changing, larger, more scaley Not itchy or bleeding DM - chronic, on Metformin 500 mg BID Last HgA1C > 8 in 02/2019 HTN - chronic for years On Norvasc 2.5 mg and HCTZ 25 mg Was on Lisinopril in past, [id number] state had mood changes/depressed mood on the ACEi (resolved when he stopped the Rx) This time was around of however No chest pain, SOB, leg swelling Lives half year in [place], back in this area in summer HLD - on Lipitor 40 mg Chronic No myalgias Seizure D/O - Chronic No recent seizure activity on Depakote for this Patient Active Problem List Diagnosis ??? Routine history and physical examination of adult ??? Seizure disorder ([facility]) ??? Gastroesophageal reflux disease ??? Essential hypertension ??? Hyperlipidemia ??? Allergic rhinitis ??? Male erectile disorder ??? Atypical chest pain ??? Depression ??? Anxiety ??? Type 2 diabetes mellitus without complication, without long-term current use of insulin ([facility]) ??? Unspecified polyarthropathy or polyarthritis, shoulder region [...] health care facility 08/05/2002 ??? Seizure disorder ([facility]) 08/05/2002 ??? Seizures ([facility]) ??? Type 2 diabetes mellitus without complication, without long-term current use of insulin ([facility]) Current Outpatient Medications on File Prior to [...] by mouth daily. 90 tablet 4 ??? divalproex (DEPAKOTE) 500 mg delayed release tablet take 3 tablets by mouth once daily at bedtime 270 tablet 3 ??? DOCOSAHEXANOIC ACID/EPA (FISH OIL ORAL) Take 1 Capsule by mouth daily ??? fluticasone (FLONASE) 50 mcg/actuation nasal spray Instill 2 Sprays into both nostrils daily. 16 g 2 ??? hydroCHLOROthiazide (HYDRODIURIL) 25 mg tablet take 1 tablet by mouth once daily 90 tablet 3 ??? metFORMIN (GLUCOPHAGE) 500 mg tablet Take 2 Tabs by mouth 2 times daily with breakfast and dinner. 360 Tab 0 ??? MULTIVITAMINS (MULTI-VITAMIN ORAL) Take 1 Tab by mouth daily. ??? omeprazole (PRILOSEC) 20 mg capsule TAKE 1 CAPSULE DAILY 90 Cap 3 No current facility-administered medications on file prior to visit. Allergies Allergen Reactions ??? Dilantin [Phenytoin Sodium Extended] [place] like a zombie. ??? Lisinopril Depression ??? Tegretol [Carbamazepine] Rash Social Social History Tobacco Use ??? Smoking status: Never Smoker ??? Smokeless tobacco: Never Used Substance Use Topics ??? Alcohol use: Yes Comment: 2-3 drinks per week ??? Drug use: No ROS - See HPI Objective: BP (!) 152/84 (BP Cuff Location: Right arm, BP Patient Position: Sitting, BP Cuff Sizes: Adult, regular) Pulse 86 Temp 36.4 ??C (97.6 ??F) (Oral) Ht 174 cm (68.5) Wt (!) 115.7 kg (255 lb) BMI 38.21 kg/m?? Physical Exam Constitutional: He appears well-developed and well-nourished. No distress. HENT: Head: Eyes: Conjunctivae are normal. No scleral icterus. Cardiovascular: Pulses: Dorsalis pedis pulses are 2+ on the right side, and 2+ on the left side. Musculoskeletal: He exhibits no edema. Feet: Right Foot: Protective Sensation: 4 sites tested. 4 sites sensed. Skin Integrity: Negative for ulcer, blister or skin breakdown. Left Foot: Protective Sensation: 4 sites tested. 4 sites sensed. Skin Integrity: Negative for ulcer, blister or skin breakdown. Neurological: He is alert. Coordination normal. Skin: No erythema. No pallor. Assessment: Plan: Mario was seen today for skin lesion. Diagnoses and all orders for this visit: Skin lesion of face Likely SCC vs BCC vs AK Return this week for shave bx Procedure explained Type 2 diabetes mellitus without complication, without long-term current use of insulin ([facility]) On Metformin 500 mg BID Due for eye exam Foot exam done today Labs today - BASIC METABOLIC PANEL (BMP) - HEMOGLOBIN A1C - ALBUMIN, URINE Essential hypertension Above goal Did not tolerate ACEi Increase Norvasc to 5 mg daily Cont HCTZ Consider trial ARB at future visit - BASIC METABOLIC PANEL (BMP) Other hyperlipidemia Cont statin Lipitor 40 mg daily - LIPID PROFILE (INCLUDES CHOLESTEROL, TRIGLYCERIDES, HDL, LDL) Seizure disorder ([facility]) Seizure free Depakote level today - VALPROIC ACID LEVEL Return if symptoms worsen or fail to improve, for Shave biopsy with [facility] WOODS 01/01 at 11:45. * Pamella Barry - 12/30/2019 1130 EST Venipuncture performed for A1C,Lipid, BMP Per orders of DR. Alva Hannah Diagnosis of E11.9,E78.49 Pamella Barry 12/30/2019 14:18 documented in this encounter Plan of Treatment [...] learn more about your health please visit: [email or web address]/Pages/Wellness-Resources/Jbbojmjva-Suluem-Ip sourc e-Center.aspx LDL < 100 Result Component Hyperlipidemia 56( 0 12:18 EST) No Maggie Andrade, MANAGER LATIN HEMOGLOBIN A1C < 7.0 Result Component Type 2 diabetes mellitus ([facility]) 7.7(12/30/19 20 12:18 EST) No Maggie Andrade LPN documented as of this encounter Procedures Procedure Name Priority Date/Time Associated Diagnosis Comments URINE [id number] NE RATIO (ACR) Routine 12/30/2019 12:19 EST Type 2 diabetes mellitus without complication, without long-term current use of insulin ([facility]) HEMOGLOBIN A1C Routine 12/30/2019 12:18 EST Type 2 diabetes mellitus without complication, without long-term current use of insulin ([facility]) VALPROIC ACID LEVEL Routine 12/30/2019 1 2:18 EST Seizure disorder ([facility]) LIPID PROFILE (INCLUDES CHOLESTEROL, TRIGLYCERIDES, HDL, LDL) Routine 12/30/2019 12:18 EST Other hyperlipidemia BASIC METABOLIC PANEL (BMP) Routine 12/30/2019 12:18 EST Essential hypertension Type 2 diabetes mellitus without complication, without long-term current use of insulin ([facility]) documented in this encounter Results * ALBUMIN, URINE (12/30/2019 12:19 EST) Albumin, Urine <0.6 See Note mg/dL 2019 18:48 EST [facility] Comment: NOTE: Reference range not established Creatinine, Urine 104.7 See Note mg/dL 12/30/2019 18:48 EST [facility] Comment: NOTE: Reference range not established Lab Urine Albumin to Creatinine Ratio <6 <30 ug/mg Creatinine 12/30/2019 18:48 EST [facility] Comment: Urine Albumin/Creatinine Ratio: Normal: <30 ug/mg Creatinine Moderately increased albuminuria: 30-30 ug/mg Creatinine [place] increased albuminuria: >300 ug/mg Creatinine Urine URINE SPECIMEN OBTAINED BY CLEAN CATCH PROCEDURE / Unknown Urine Collect / Unknown 12/30/2019 12:19 EST 12/30/2019 12:19 EST Roxanna Hannah MD CHEMISTRY & BLOOD GAS OR DERABLES Final Result Performing Organization Address [facility] Co de Phone Number [facility] [address] [place] [address] * VALPROIC ACID LEVEL (12/30/2019 12:18 EST) Valproic Acid 85 50 - 100 ug/mL 12/30/2019 18:08 EST [facility] Blood VENOUS BLOOD / Unknown Venipuncture / Unknown 12/30/2019 12:18 EST 12/30/2019 12:19 EST Roxanna Hannah MD CHEMISTRY & BLOOD GAS OR DERABLES Final Result Performing Organization Address [facility] Co de Phone Number [facility] [address] [place] [address] * (ABNORMAL) HEMOGLOBIN A1C (12/30/2019 12:18 EST) Hemoglobin A1c 7.7(H) <5.7 % 12/31/2019 9:56 EST [facility] Comment: Glycemic Status References: [...] Est Avg Glucose 174 mg/dL 0 9:56 [facility] Comment: The eAG represents the A1c result expressed as average glucose in mg/dL. Blood VENOUS BLOOD / Unknown Venipuncture / Unknown 12/30/2019 12:18 EST 12/30/2019 12:19 EST us Roxanna Hannah MD CHEMISTRY & BLOOD GAS OR DERABLES Final Result [facility] [address] [place] [address] * LIPID PROFILE (INCLUDES CHOLESTEROL, TRIGLYCERIDES, HDL, LDL) (12/30/2019 12:18 EST) Cholesterol 116 See Note mg/dL 12/30/2019 18:03 [facility] Comment: Acceptable: ?<200 mg/dL Borderline High: 200-239 mg/dL High: ?> or = 240 mg/dL HDL 25 See Note mg/dL 12/30/2019 18:03 [facility] Comment: Low: ? <40 mg/dL Normal: ??40-60 mg/dL High: ?>60 mg/dL LDL, Calculated 56 See Note mg/dL 12/30/2019 18:03 [facility] Comment: Optimal: ? <100 mg/dL Near Optimal: ?100-129 mg/dL Borderline High: 130-159 mg/dL High: ?160-189 mg/dL Very High: ? > or = 190 mg/dL Triglyceride 177 See Note mg/dL 12/30/2019 18:03 [facility] Comment: Normal: ? <150 mg/dL Borderline High: ??150 - 199 mg/dL High: ? 200 - 499 mg/dL Very High: ?> or = 500 mg/dL Chol/HDL Ratio 4.6 See Note 12/30/2019 18:03 [facility] Comment: No reference range has been established for CHOL/HDL ratio. Non HDL Cholesterol 91 See Note mg/dL 12/30/2019 18:03 [facility] Comment: Desirable: ?<130 mg/dL Borderline High: ??130-159 mg/dL High: ? 160-189 mg/dL Very High: ?> or = 190 mg/dL Blood VENOUS BLOOD / Unknown Venipuncture / Unknown 12/30/2019 12:18 EST 12/30/2019 12:19 EST Narrative [facility] - 12/30/2019 18:03 EST 3 us Roxanna Hannah MD CHEMISTRY & BLOOD GAS OR DERABLES Final Result Performing Organization Address City/State/[facility] Co de Phone Number [facility] [address] [place] [address] * (ABNORMAL) BASIC METABOLIC PANEL (BMP) (12/30/2019 12:18 EST) Sodium 140 136 - 145 mEq/L 12/30/2019 18:03 [facility] Potassium 5.1(H) 3.5 - 5.0 mEq/L 12/30/2019 18:03 [facility] Chloride 99 96 - 110 mEq/L 12/30/2019 18:03 [facility] CO2 Total 32 22 - 32 mEq/L 12/30/2019 18:03 [facility] Glucose 149(H) 70 - 100 mg/dL 12/30/2019 18:03 [facility] Calcium 10.5 8.5 - 10.5 mg/dL 12/30/2019 18:03 [facility] Calculated Calcium 10.2 8.5 - 10.5 mg/dL 12/30/2019 18:03 [facility] BUN 14 10 - 26 mg/dL 12/30/2019 18:03 [facility] Creatinine 0.78 0.66 - 1.25 mg/dL 12/30/2019 18:03 [facility] eGFR 96 >60 mL/min/1.7 3m2 12/30/2019 18:03 EST [facility] Comment:eGFR calculated matthew wiggins CKD-EPI equation for non- Americans. Multiply eGFR by 1.16 for patients. Blood VENOUS BLOOD / Unknown Venipuncture / Unknown 12/30/2019 12:18 EST 12/30/2019 12:19 EST Narrative [facility] - 12/30/2019 18:03 EST 3 us Roxanna Hannah MD CHEMISTRY & BLOOD GAS OR DERABLES Final Result [facility] [address] [place] [address] documented in this encounter Visit Diagnoses Diagnosis Skin lesion of face- Primary Unspecified disorder of skin and subcutaneous tissue Type 2 diabetes mellitus without complication, without long-term current use of insulin ([facility]) Essential hypertension Unspecified essential hypertension Other hyperlipidemia Seizure disorder ([facility]) Unspecified epilepsy without mention of intractable epilepsy documented in this encounter Discontinued Medications Medication Sig Discontinue Reason Start Date End Da te Garlic capsule Take 5 Caps by mouth daily. Error 03/2020 documented as of this encounter Care Teams Food Sampler Relationship Specialty Start Date End Date Roxanna Hannah MD [address] [place] [phone] PCP - General 03/28/09 05/31/20 documented as of this encounter
--- OUTSIDE RECORDS SUMMARY | 2024-10-06 13:48 | XMS_ITS | Encounter Summary ---
Author Organization [facility] Address [address] [place] [address] Care Team Providers Care Recreation Therapy Teacher Name Role Phone Roxanna Hannah MD Primary Care Provider + Reason for Visit * Reason Onset Date Comments Pharmacy 03/05/2019 Encounter Details Date Type Department Care Team (Late st Contact Info) Description 03/05/[address] [phone] Roxanna Hannah MD [address] [place] [phone] Pharmacy Social History Tobacco Use Types Packs/Day Years [...] Telephone Encounter - Magi Cleaning MD - 03/06/2019 1347 EDT Based on his recent labs - which I have to send a letter to him about - we will actually be switching stating therapy anyways to Atorvastatin so shouldn't be an issue. * Telephone Encounter - Ondina Jama RN - 03/05/2019 1439 EDT At 03/03/19 visit, Amlodipine 5mg started for hypertension at visit with Dr Cleaning. * Telephone Encounter - Kahlil Butler - 03/05/2019 1430 EDT Patient says the pharmacist told him the Amlodipine can interact with the Simvastation so they advised him to cut the Simvastatin in half to take 20mg with the 5mg Amlodipine so that is what he has been doing the past [address]. [address] Hannah agree and does she want to write a new script for 20mg S imvastatin? documented in this encounter Plan of Treatment [...] 7.0 Result Component Type 2 diabetes mellitus ([facility]) 7.7(12/30/19 20 12:18 EST) No Maggie Andrade LPN documented as of this encounter Visit Diagnoses Not on filedocumented in this encounter Care Teams Recreation Therapy Teacher Relationship Specialty Start Date End Date Roxanna Hannah MD [address] [place] [phone] PCP - General 03/28/09 05/31/20 documented as of this encounter
--- OUTSIDE RECORDS SUMMARY | 2024-10-06 13:48 | XMS_ITS | Encounter Summary ---
Author Organization [facility] Address [address] [place] [address] Care Team Providers Care Housekeeping And Laundry Team Leader Name Role Phone Roxanna Hannah MD Primary Care Provider + Reason for Visit * Reason Comments Immunizations Encounter Details Date Type Department Care Team (Late st Contact Info) Description 09/12/2018 10:15 EDT Nurse Only [address] [phone] Unknown, Provider, Roshan Rome MD [address] [place] [phone] Nurse, [facility] , RN Need for shingles vaccine (Primary Dx) Discharge Disposition: Auto Discharge Social [...] Vaishali Rocha documented in this encounter Discharge Disposition Disposition Code Departure Means Destination Auto Discharge documented in this encounter Progress Notes * Zuly Gaines LPN - 09/12/2018 1015 EDT Pt here for shingles vaccine today See immunization flow sheets. I was supervised by Katherine Sanchez MD who was present and immediately available in the office suite. Zuly Gaines LPN 09/12/2018 10:47 documented in this encounter Plan of Treatment [...] Component Type 2 diabetes mellitus ([facility]) 7.7(12/30/19 20 12:18 EST) No Maggie Andrade LPN documented as of this encounter Visit Diagnoses Diagnosis Need for shingles vaccine- Primary Need for prophylactic vaccination and inoculation against other viral diseases documented in this encounter Orders Immunization/Injection Count Last Ordered Date First Ordered Date SHINGRIX (ZOSTER VACCINE, RECOMBINANT) IM 1 09/12/2018 documented in this encounter Care Teams Housekeeping And Laundry Team Leader Relationship Specialty Start Date End Date Roxanna Hannah MD [address] [place] [phone] PCP - General 03/28/09 05/31/20 documented as of this encounter
--- OUTSIDE RECORDS SUMMARY | 2024-10-06 13:48 | XMS_ITS | Encounter Summary ---
Author Organization [facility] Address [address] [place] [address] Care Team Providers Care Pourer Buggy Ladle Name Role Phone Roxanna Hannah MD Primary Care Provider + Reason for Visit * Reason Onset Date Comments Bronchitis 11/19/2018 bronchopneumonia Encounter Details Date Type Department Care Team (Late st Contact Info) Description 11/19/[address] [phone] Olinda Taylor LPN Bronchitis (bronchopneumonia ) Social History Tobacco Use Types Packs/Day Years [...] encounter Miscellaneous Notes * Telephone Encounter - Olinda Taylor LPN - 11/19/2018 1400 EST Received information from [facility] . Patient there on 11-14-18 with SOB. Patient Had CXR and EKG . Patient has diagnosis of bibasilar Broncho pneumonia . Patient was prescribed doxycycline and pro air inhaler . Call and concern : Patient declined follow up at this time , has office visit 12-10-[address] Camden Taylor LPN 11/19/2018 14:06 documented in this encounter Plan of Treatment [...] Component Type 2 diabetes mellitus ([facility]) 7.7(12/30/19 20 12:18 EST) No Maggie Andrade LPN documented as of this encounter Visit Diagnoses Not on filedocumented in this encounter Care Teams Pourer Buggy Ladle Relationship Specialty Start Date End Date Roxanna Hannah MD [address] [place] [phone] PCP - General 03/28/09 05/31/20 documented as of this encounter
--- OUTSIDE RECORDS SUMMARY | 2024-10-06 13:48 | XMS_ITS | Encounter Summary ---
Author Organization [facility] Address [address] [place] [address] Care Team Providers Care Oracle Business Intelligence Developer Name Role Phone Roxanna Hannah MD Primary Care Provider + Encounter Details Date Type Department Care Team (Late st Contact Info) Description 03/13/2019 Orders Only [facility] [address] [phone] Magi Cleaning MD [address] [place] [address] Hypertension, unspecified type (Primary Dx) Social History Tobacco Use Types [...] Entry Date Author No 08/11/2018 12:13 EDT Aj, Bra ndy documented in this encounter Ordered Prescriptions Prescription Sig Dispense Quantity Refills Last Filled Start Date End Date atorvastatin (LIPITOR) 40 mg tablet Take 1 tablet by mouth daily. 90 tablet 4 03/13/2019 0 metFORMIN (GLUCOPHAGE) 500 mg tablet Take 1 tablet by mouth daily with breakfast for 10 days, THEN 1 tablet 2 times daily with breakfast and dinner for 30 days. 180 tablet 2 03/13/2019 0 amLODIPine (NORVASC) 5 mg tabletIndications: Hypertension, unspecified type Take 0.5 tablets by mouth daily. 90 tablet 4 03/13/2019 0 documented in this encounter Plan of Treatment [...] Type 2 diabetes mellitus ([facility]) 7.7(12/30/19 20 12:18 EST) No Maggie Andrade LPN documented as of this encounter Visit Diagnoses Diagnosis Hypertension, unspecified type- Primary documented in this encounter Discontinued Medications Medication Sig Discontinue Reason Start Date End Da te simvastatin (ZOCOR) 40 mg tablet take 1 tablet by mouth every evening 04/29/2018 03/13/2019 amLODIPine (NORVASC) 5 mg tabletIndications:Hypert ension, unspecified type Take 1 tablet by mouth daily. Order modification 03/03/2019 03/13/2019 documented as of this encounter Care Teams Oracle Business Intelligence Developer Relationship Specialty Start Date End Date Roxanna Hannah MD [address] [place] [phone] PCP - General 03/28/09 05/31/20 documented as of this encounter
--- OUTSIDE RECORDS SUMMARY | 2024-10-06 13:48 | XMS_ITS | Encounter Summary ---
Author Organization Health system Address [address] [place] [address] Care Team Providers Care Irrigation Flume Layer Name Role Phone Roxanna Hannah MD Primary Care Provider + Reason for Visit * Reason Onset Date Comments Labs Only 04/25/2018 Encounter Details Date Type Department Care Team (Late st Contact Info) Description 04/25/[address] [phone] Maggie Andrade LPN Labs Only Social History Tobacco Use Types Packs/Day Years [...] Telephone Encounter - Maggie Andrade LPN - 04/25/2018 1231 EDT Left message for pt to have some labs done prior to his 04/[address] Hannah if possible. He does not need to fast prior to these labs. documented in this encounter Plan of [...] on filedocumented in this encounter Care Teams Irrigation Flume Layer Relationship Specialty Start Date End Date Roxanna Hannah MD [address] [place] [phone] PCP - General 03/28/09 05/31/20 documented as of this encounter
--- OUTSIDE RECORDS SUMMARY | 2024-10-06 13:48 | XMS_ITS | Encounter Summary ---
Author Organization [facility] Address [address] [place] [address] Care Team Providers Care Tissue Technician Name Role Phone Roxanna Hannah MD Primary Care Provider + Encounter Details Date Type Department Care Team (Late st Contact Info) Description 04/25/2018 Orders Only [facility] Family Medicine - [address] [phone] Roxanna Hannah MD [address] [place] [phone] Benign essential HTN (Primary Dx); IGT (impaired glucose tolerance); Other hyperlipidemia; Seizure disorder ([facility]) Social History Tobacco Use Types Packs/Day Years [...] documented as of this encounter Results * VALPROIC ACID LEVEL (04/25/2018 14:46 EDT) Valproic Acid 70.9 50.0 - 100.0 ug/ml 04/25/2018 21:44 EDT [facility] Blood specimen (specimen) BLOOD SPECIMEN / Unknown 04/25/2018 14:46 EDT 04/25/2018 21:18 EDT Roxanna Hannah MD CHEMISTRY & BLOOD GAS OR DERABLES Final Result [facility] [address] [place] [id number] * LIPID PROFILE (INCLUDES CHOLESTEROL, TRIGLYCERIDES, HDL, LDL) (04/25/2018 14:46 EDT) Cholesterol 158 mg/dl 04/25/2018 21:43 EDT [facility] Comment: Desirable:<200 Borderline High:200-239 High:>ob=281 Triglycerides 240 mg/dl 04/25/2018 21:43 EDT [facility] Comment: Normal:<150 Borderline High:150-199 High:200-499 Very High:>gk=517 HDL 29 mg/dl 04/25/2018 21:43 T [facility] Comment: Low:<40 Normal:40-60 Desirable: >60 LDL, Calculated 81 mg/dl 8 21:43 [facility] Comment: Optimal:<100 Near Optimal:100-129 Borderline High:130-159 High:160-189 Very High:>vz=653 Chol/HDL Ratio 5.4 04/25/2018 21:43 [facility] Fasting? Unknown 04/25/2018 21:19 [facility] Non HDL Cholesterol 129 mg/dl 04/25/2018 21:43 [facility] Comment: Desirable:<130 Borderline:130-159 High: 160-189 Very High: >ap=241 Blood specimen (specimen) BLOOD SPECIMEN / Unknown 04/25/2018 14:46 EDT 04/25/2018 21:18 EDT us Roxanna Hannah MD CHEMISTRY & BLOOD GAS OR DERABLES Final Result [facility] [address] [place] [address] * HEMOGLOBIN A1C (04/25/2018 14:46 EDT) Hemoglobin A1C 7.1 % 04/28/2018 9:54 T [facility] Comment: Reference Range: <5.7% Normal 5.7-6.4% Prediabetes =>6.5% Diagnostic for diabetes (if confirmed) Goals for glycemic control in diabetes ADA 2017 For non adults with diabetes: ?? Target <7.5% For children and adolescents with type 1 diabetes: ?? Target <7.0% More or less stringent targets may be appropriate for individual patients. Est Avg Glucose 157 mg/dl 8 9:54 T [facility] Comment: eAG represents the A1c result expressed as average glucose in mg/dl. Blood specimen (specimen) BLOOD SPECIMEN / Unknown 04/25/2018 14:46 EDT 04/25/2018 21:18 EDT us Roxanna Hannah MD CHEMISTRY & BLOOD GAS OR DERABLES Final Result [facility] [address] [place] [address] * BASIC METABOLIC PANEL (BMP) (04/25/2018 14:46 EDT) Sodium 145 136 - 145 mEq/L 04/25/2018 21:43 [facility] Potassium 4.9 3.5 - 5.0 mEq/L 04/25/2018 21:43 [facility] Chloride 103 96 - 110 mEq/L 04/25/2018 21:43 [facility] CO2 32 22 - 32 mEq/L 04/25/2018 21:43 [facility] BUN 20 10 - 26 mg/dl 04/25/2018 21:43 [facility] Creatinine 0.93 0.66 - 1.25 mg/dl 04/25/2018 21:43 [facility] GFR, Calculated 88 >60 ml/min/1.7 3m2 04/25/2018 21:43 [facility] Comment: eGFR calculated using CKD-EPI equation for non Americans. Multiply eGFR by 1.16 for Americans. Calcium 9.9 8.5 - 10.5 mg/dl 04/25/2018 21:43 [facility] Calculated Calcium 9.7 8.5 - 10.5 mg/dl 04/25/2018 21:43 [facility] Glucose, Serum 87 70 - 100 mg/dl 04/25/2018 21:43 [facility] Fasting? Unknown 04/25/2018 21:19 [facility] Blood specimen (specimen) BLOOD SPECIMEN / Unknown 04/25/2018 14:46 EDT 04/25/2018 21:18 EDT us Roxanna Hannah MD CHEMISTRY & BLOOD GAS OR DERABLES Final Result [facility] [address] [place] [address] documented in this encounter Visit Diagnoses Diagnosis Benign essential HTN- Primary Essential hypertension, benign IGT (impaired glucose tolerance) Impaired glucose tolerance test Other hyperlipidemia Seizure disorder (HCC-CMS) Unspecified epilepsy without mention of intractable epilepsy documented in this encounter Care Teams Tissue Technician Relationship Specialty Start Date End Date Roxanna Hannah MD [address] [place] [phone] PCP - General 03/28/09 05/31/20 documented as of this encounter
--- OUTSIDE RECORDS SUMMARY | 2024-10-06 13:48 | XMS_ITS | Encounter Summary ---
Author Organization [facility] Address [address] [place] [address] Care Team Providers Care Supervisor Braiding Name Role Phone Roxanna Hannah MD Primary Care Provider + Encounter Details Date Type Department Care Team (Late st Contact Info) Description 06/03/2018 Results Only Imaging [facility] Family Medicine - [address] [phone] Roxanna Hannah MD [address] [place] [address] [phone] Social History Tobacco Use Types Packs/Day Years [...] on filedocumented in this encounter Care Teams Supervisor Braiding Relationship Specialty Start Date End Date Roxanna Hannah MD [address] [place] [phone] PCP - General 03/28/09 05/31/20 documented as of this encounter
--- OUTSIDE RECORDS SUMMARY | 2024-10-06 13:48 | XMS_ITS | Encounter Summary ---
Author Organization [facility] Address [address] [place] [address] Care Team Providers Care Flour Distributor Name Role Phone Roxanna Hannah MD Primary Care Provider + Encounter Details Date Type Department Care Team (Late st Contact Info) Description 05/21/2018 Orders Only [facility] Family Medicine - [address] [phone] Roxanna Hannah MD [address] [place] [phone] Atypical chest pain (Primary Dx) Social History Tobacco Use [...] Answer Entry Date Author No 04/29/2018 14:12 EDVaishali Beach documented in this encounter Progress Notes * Roxanna Hannah MD - 05/21/2018 0844 EDT Will order out pt CARDIAC stress testing documented in this encounter Plan of Treatment [...] as of this encounter Visit Diagnoses Diagnosis Atypical chest pain- Primary Other chest pain documented in this encounter Care Teams Flour Distributor Relationship Specialty Start Date End Date Roxanna Hannah MD [address] [place] [phone] PCP - General 03/28/09 05/31/20 documented as of this encounter
--- OUTSIDE RECORDS SUMMARY | 2024-10-06 13:48 | XMS_ITS | Encounter Summary ---
Author Organization [facility] Address [address] [place] [address] Care Team Providers Care Airport Operations Coordinator Name Role Phone Roxanna Hannah MD Primary Care Provider + Reason for Visit * Reason Onset Date Comments Medications Refill 12/18/2019 Encounter Details Date Type Department Care Team (Late st Contact Info) Description 12/18/2019 Refill [facility] Medicine [address] [phone] Roxanna Hannah MD [address] [place] [address] [phone] Medications Refill Social History Tobacco Use Types [...] Entry Date Author Yes 03/31/2019 10:16 EDT Aj Vaishali dunnrena documented in this encounter Ordered Prescriptions Prescription Sig Dispense Quantity Refills Last Filled Start Date End Date metFORMIN (GLUCOPHAGE) 500 mg tablet Take 2 Tabs by mouth 2 times daily with breakfast and dinner. 360 Tab 12/18/2019 0 documented in this encounter Miscellaneous Notes * Telephone Encounter - Isaura Spivey - 12/23/2019 1011 EST Message left for patient, he does have an appointment on , he should set up one for diabetes. * Telephone Encounter - Michaela Manzanares RN - 12/18/2019 1315 EST Per 03/31/[address] Hannah:He has already increased Metformin to 1000 mg BID to address, repeat in a total 12 weeks after dose change All documentation reviewed and approved. MICHAELA MANZANARES RN 12/18/2019 13:16 * Telephone Encounter - Isaura Spivey - 12/18/2019 1213 EST Medication(s) Requested: Metformin # 180 w/ 2 RF Preferred Pharmacy: [facility] Is patient out of medication? No Last Refill Date: 04/22/19 Last Visit Date with Ordering Provider: 04/12/19 Next Non-Acute Visit Date Scheduled with Care Team: No. Isaura Spivey 12/18/2019 12:15 documented in this encounter Plan of Treatment [...] learn more about your health please visit: https://www.[facility].org/medcenter/Pages/Wellness-Resources/Opgamhzlh-Faybno-Gb sourc e-Center.aspx LDL < 100 Result Component Hyperlipidemia 56( 0 12:18 EST) No Maggie Andrade LPN HEMOGLOBIN A1C < 7.0 Result Component Type 2 diabetes mellitus ([facility]) 7.7(12/30/19 20 12:18 EST) No Maggie Andrade LPN documented as of this encounter Visit Diagnoses Not on filedocumented in this encounter Discontinued Medications Medication Sig Discontinue Reason Start Date End Da te metFORMIN (GLUCOPHAGE) 500 mg tablet Take 1 tablet by mouth daily with breakfast for 10 days, THEN 1 tablet 2 times daily with breakfast and dinner for 30 days. Reorder 03/13/2019 12/18/2019 documented as of this encounter Care Teams Airport Operations Coordinator Relationship Specialty Start Date End Date Roxanna Hannah MD [address] [place] [place] [phone] PCP - General 03/28/09 05/31/20 documented as of this encounter
--- OUTSIDE RECORDS SUMMARY | 2024-10-06 13:48 | XMS_ITS | Encounter Summary ---
Author Organization [facility] Address [address] [place] [address] Care Team Providers Care Bone Cooking Operator Name Role Phone Roxanna Hannah MD Primary Care Provider + Reason for Visit * Reason Comments Hypertension Thinks he discontinu ed Lisinopril due to suicidal ideation. Encounter Details Date Type Department Care Team (Late st Contact Info) Description 03/03/2019 15:45 EDT Office Visit [address] [phone] Unknown, Provider, Balbina Ayon MD [address] [facility], [address] [place], [place] [address] Magi Cleaning MD [address] [place] [phone] Hypertension, unspecified type (Primary Dx); Type 2 diabetes mellitus without complication, without long-term current use of insulin ([facility]); Obesity, Class II, BMI 35-39.9, no comorbidity Discharge Disposition: Auto Discharge Social History Tobacco [...] Sign Reading Time Taken Comments Blood Pressure 162/98 03/03/2019 1537 EDT Pulse 84 03/03/2019 1537 EDT Temperature - - Respiratory Rate - - Oxygen Saturation - - Inhaled Oxygen Concentration - - Weight 119.7 kg (264 lb) 03/03/2019 1537 EDT Height - - Body Mass Index 38.99 08/11/2018 1212 EDT documented in this encounter [...] documented in this encounter Discharge Diagnoses Diagnosis I10 Essential (primary) hypertension-I10[ICD-10-CM] E11.9 Type 2 diabetes mellitus without complications-E11.9[ICD-10-CM] documented in this encounter Ordered Prescriptions Prescription Sig Dispense Quantity Refills Last Filled Start Date End Date amLODIPine (NORVASC) 5 mg tabletIndications: Hypertension, unspecified type Take 1 tablet by mouth daily. 90 tablet 4 03/03/2019 03/13/2019 documented in this encounter Discharge Disposition Disposition Code Departure Means Destination Auto Discharge documented in this encounter Progress Notes * Magi Cleaning MD - 03/03/2019 1545 EDT CC: Hypertension (Thinks he discontinued Lisinopril due to suicidal ideation.) Subjective: Mario presents for HTN follow up Was on HCTZ 25mg and Lisinopril, stopped the lisinopril over 1 year ago as felt it affected his mood. Everything improved when he stopped the ACEi. No mood issues now. Can tell when his blood pressure is high, gets a sensation in his head and sometimes gets dizzy. No syncope, denies vision changes or chest pain. Does get presyncope sometimes, most recently about 1 month ago. Was arguing about something and got lightheaded and had tunnel vision and felt flushed. Not related to physical exertion however. He has cut down on his walking [place] Does have gym at home and bike as well, but hasn't been doing it much and has put on weight as a result. Hastried to make dietary changes - does eat processed meals, but not TV dinner. Trying to watch sodiumin stephon callendar's and soups. Adding more blueberries, raspberries and high fibers. Would like tolose weight. Denies leg swelling or edema. Does not have a BP cuff at home. ROS - ROS queried, negative except as reported above in HPI Problem list, past medical history, medications, allergies, and family history reviewed and updatedin [facility] as appropriate. Pertinent Social History: Never smoker, weekly alcohol use Objective: Blood pressure (!) 162/98, pulse 84, weight (!) 119.7 kg (264 lb). Physical Exam Constitutional: He is oriented to person, place, and time. He appears well- developed and well-nourished. No distress. HENT: Mouth/Throat: Mucous membranes are moist. Oropharynx is clear. Eyes: Conjunctivae and EOM are normal. No scleral icterus. Neck: Normal range of motion. Neck supple. Cardiovascular: Normal rate, regular rhythm and intact distal pulses. Accentuated S1 Pulmonary/Chest: Effort normal. No respiratory distress. He has no wheezes. He has no rhonchi. He has no rales. Musculoskeletal: He exhibits no edema. Neurological: He is alert and oriented to person, place, and time. Coordination normal. Skin: Skin is warm and dry. Psychiatric: He has a normal mood and affect. Nursing note and vitals reviewed. Assessment/Plan: Diagnoses and all orders for this visit: Hypertension, unspecified type: blood pressure goal <140/90. Blood pressure today is (!) 162/98 (03/03/19 1537) ; this is above goal. The patient is currently taking HCTZ 25mg daily for blood pressure. Plan to add medication. He has history of diabetes so ROZINA or ARB would be best (no microalbuminuria on last UA in 04/2018); he will not try ACEi again. I think best plan would be to start CCB to get BP under control and since the HCTZ is at max dose and not working well we may be able to transition him off HCTZ and onto an ARB which would be good for renal protection in this diabetic patient.Will start with amlodipine 5mg, discussed side effects. BMP today stable. BP Readings from Last 5 Encounters: 03/03/19 (!) 162/98 08/11/18 108/80 04/29/18 130/70 03/20/18 (!) 158/84 10/24/17 140/90 - BASIC METABOLIC PANEL (BMP) - amLODIPine (NORVASC) 5 mg tablet Type 2 diabetes mellitus without complication, without long-term current use of insulin ([facility]): Last A1c 04/2018 was 7.1% though he has gained weight over this fall and winter and is not on any DM medications. Obtain A1c today, likely needs initiation of metformin. He could also be a good candidate for GLP-1 if it was covered by his insurance for weight loss and he is amenable to injections if needed. - HEMOGLOBIN A1C Obesity, Class II, BMI 35-39.9, no comorbidity: Discussed increasing his aerobic activity and continuing with dietary changes to try for 5-10% weight loss in the next few months. If was not able, we could try GLP-1 as above for both CV risk improvement and weight loss. All patient questions were answered, and patient verbalized agreement with above plan without barriers to understanding. Pt seen and d/w Dr Daniel Cleaning MD Family Medicine: PGY 3 Pager #[phone] 03/04/2019 9:14 * Raffi Gracia - 03/03/2019 1545 EDT Right arm Venipuncture performed for A1C, BMP Per orders of Dr. Cleaning / Dr. Sanchez Diagnosis of DM II E11.9 &HTN I10 Raffi Gracia 03/03/2019 17:04 * Balbina Sanchez - 03/03/2019 1545 EDT Attestation statement: I saw and examined the patient on the day of this service and agree with thefindings and plan of care documented in the resident's note. Balbina Sanchez MD Family Medicine Attending documented in this encounter Plan of Treatment [...] 2 diabetes mellitus ([facility]) 7.7(12/30/19 20 12:18 EST) No Maggie Andrade LPN documented as of this encounter Procedures Procedure Name Priority Date/Time Associated Diagnosis Comments HEMOGLOBIN A1C Routine 03/03/2019 16:51 EDT Type 2 diabetes mellitus without complication, without long-term current use of insulin ([facility]) BASIC METABOLIC PANEL (BMP) Routine 03/03/2019 16:51 EDT Hypertension, unspecified type documented in this encounter Results * (ABNORMAL) BASIC METABOLIC PANEL (BMP) (03/03/2019 16:51 EDT) Sodium 138 136 - 145 mEq/L 03/03/2019 20:40 EDT [facility] Potassium 4.4 3.5 - 5.0 mEq/L 03/03/2019 20:40 T [facility] Chloride 96 96 - 110 mEq/L 03/03/2019 20:40 T [facility] CO2 32 22 - 32 mEq/L 03/03/2019 20:40 [facility] BUN 13 10 - 26 mg/dl 03/03/2019 20:40 [facility] Creatinine 1.00 0.66 - 1.25 mg/dl 03/03/2019 20:40 [facility] GFR, Calculated 80 >60 ml/min/1.7 3m2 03/03/2019 20:40 [facility] Comment: eGFR calculated using CKD-EPI equation for non Americans. Multiply eGFR by 1.16 for Americans. Calcium 10.1 8.5 - 10.5 mg/dl 03/03/2019 20:40 [facility] Calculated Calcium 9.5 8.5 - 10.5 mg/dl 03/03/2019 20:40 [facility] Glucose, Serum 178(H) 70 - 100 mg/dl 03/03/2019 20:40 [facility] Fasting? Unknown 03/03/2019 20:40 [facility] Blood specimen (specimen) BLOOD SPECIMEN / Unknown 03/03/2019 16:51 EDT 03/03/2019 20:12 EDT Balbina Sanchez MD CHEMISTRY & BLOOD GAS EVE SHAVER Final Result [facility] [address] [place] [address] * HEMOGLOBIN A1C (03/03/2019 16:51 EDT) Pathologist [facility] Hemoglobin A1C 8.6 % 03/04/2019 10:55 [facility] Comment: Reference Range: <5.7% Normal 5.7-6.4% Prediabetes =>6.5% Diagnostic for diabetes (if confirmed) Goals for glycemic control in diabetes ADA 2017 For non adults with diabetes: ?? Target <7.0% For children and adolescents with type 1 diabetes: ?? Target <7.5% More or less stringent targets may be appropriate for individual patients. Est Avg Glucose 200 mg/dl 9 10:55 [facility] Comment: eAG represents the A1c result expressed as average glucose in mg/dl. Blood specimen (specimen) BLOOD SPECIMEN / Unknown 03/03/2019 16:51 EDT 03/03/2019 20:12 EDT us Balbina Sanchez MD CHEMISTRY & BLOOD GAS EVE SHAVER Final Result [facility] [address] [place] [address] documented in this encounter Visit Diagnoses Diagnosis Hypertension, unspecified type- Primary Type 2 diabetes mellitus without complication, without long-term current use of insulin ([facility]) Obesity, Class II, BMI 35-39.9, no comorbidity Obesity, unspecified documented in this encounter Discontinued Medications Medication Sig Discontinue Reason Start Date End Da te lisinopril (PRINIVIL, ZESTRIL) 5 mg tabletIndications:Benign essential HTN Take 1 Tab by mouth daily. 04/29/2018 03/03/2019 documented as of this encounter Care Teams Bone Cooking Operator Relationship Specialty Start Date End Date Roxanna Hannah MD [address] [place] [phone] PCP - General 03/28/09 05/31/20 documented as of this encounter
--- OUTSIDE RECORDS SUMMARY | 2024-10-06 13:48 | XMS_ITS | Encounter Summary ---
Author Organization [facility] Address [address] [place] [address] Care Team Providers Care Facsimile Machine Operator Name Role Phone Roxanna Hannah MD Primary Care Provider + Encounter Details Date Type Department Care Team (Late st Contact Info) Description 08/27/2018 Orders Only [facility] Family Medicine [address] [phone] Vivien Cleveland LPN Need for shingles vaccine (Primary Dx) Social History Tobacco Use Types [...] documented in this encounter Progress Notes * Vivien Cleveland LPN - 08/27/2018 1220 EDT Patient due for Shingrix-please sign and route to [facility] to schedule. Order signed, patient scheduled for 08/29/18 documented in this encounter Plan of Treatment [...] 7.0 Result Component Type 2 diabetes mellitus ([facility]) 7.7(12/30/19 20 12:18 EST) No Maggie Andrade LPN documented as of this encounter Visit Diagnoses Diagnosis Need for shingles vaccine- Primary Need for prophylactic vaccination and inoculation against other viral diseases documented in this encounter Orders Immunization/Injection Count Last Ordered Date First Ordered Date SHINGRIX (ZOSTER VACCINE, RECOMBINANT) IM 1 09/12/2018 documented in this encounter Care Teams Facsimile Machine Operator Relationship Specialty Start Date End Date Roxanna Hannah MD [address] [place] [phone] PCP - General 03/28/09 05/31/20 documented as of this encounter
--- OUTSIDE RECORDS SUMMARY | 2024-10-06 13:48 | XMS_ITS | Encounter Summary ---
Author Organization [facility] Address [address] [place] [address] Care Team Providers Care Archivist Economic History Name Role Phone Roxanna Hannah MD Primary Care Provider + Reason for Visit * Reason Onset Date Comments Results 05/21/2019 Encounter Details Date Type Department Care Team (Late st Contact Info) Description 05/21/2019 Orders Only [address] [phone] Maggie Andrade LPN Social History Tobacco Use [...] about your health please visit: https://www.[facility].org/medcenter/Pages/Wellness-Resources/Mzzqbgpji-Bzujtn-Jn sourc e-Center.aspx LDL < 100 Result Component Hyperlipidemia 56( 0 12:18 EST) No Maggie Andrade LPN HEMOGLOBIN A1C < 7.0 Result Component Type 2 diabetes mellitus ([facility]) 7.7(12/30/19 20 12:18 EST) No Maggie Andrade LPN documented as of this encounter Procedures Procedure Name Priority Date/Time Associated Diagnosis Comments COLONOSCOPY PROCEDURE Routine 05/12/2019 documented in this encounter Results * COLONOSCOPY PROCEDURE (05/12/2019) Colonoscopy [facility] Colonoscopy, External [facility] Comment:The cecum, ascending , transverse, descending, sigmoid colon and rectum all appeared normal. No abnormalities in the rectum. Return for colonoscopy in 3 years or as needed for any changes. Anatomical Region Laterality Modality Endoscopy 05/12/2019 us Historical Provider GI PROCEDURE ORDERABLES F inal Result documented in this encounter Visit Diagnoses Not on filedocumented in this encounter Care Teams Archivist Economic History Relationship Specialty Start Date End Date Roxanna Hannah MD [address] [place] [phone] PCP - General 03/28/09 05/31/20 documented as of this encounter
--- OUTSIDE RECORDS SUMMARY | 2024-10-06 13:48 | XMS_ITS | Encounter Summary ---
Author Organization [facility] Address [address] [place] [address] Care Team Providers Care Jackaroo Name Role Phone Roxanna Hannah MD Primary Care Provider + Reason for Visit * Reason Onset Date Comments Follow-up 12/17/2017 Encounter Details Date Type Department Care Team (Late st Contact Info) Description 12/17/[address] [address] Maggie Andrade LPN Follow-up Social History Tobacco Use Types Packs/Day Years [...] Telephone Encounter - Maggie Andrade LPN - 12/17/2017 1247 EST Pt. Was called as he was seen [place] [facility] [place]17 for chest pain. Dx'd with Pleurisy. Pt. Was offered a f/u jorden't but declined. documented in this encounter Plan of Treatment [...] on filedocumented in this encounter Care Teams Jackaroo Relationship Specialty Start Date End Date Roxanna Hannah MD [address] [place] [phone] PCP - General 03/28/09 05/31/20 documented as of this encounter
--- OUTSIDE RECORDS SUMMARY | 2024-10-06 13:48 | XMS_ITS | Encounter Summary ---
Author Organization [facility] Address [address] [place] [address] Care Team Providers Care Event Coordinator Marketing And Sales Name Role Phone Roxanna Hannah MD Primary Care Provider + Reason for Visit * Reason Onset Date Comments Results 01/24/2018 Encounter Details Date Type Department Care Team (Late st Contact Info) Description 01/24/2018 Orders Only [address] [address] Maggie Andrade LPN Social History Tobacco Use [...] Date/Time Associated Diagnosis Comments COLONOSCOPY PROCEDURE Routine 01/15/2018 documented in this encounter Results * (ABNORMAL) COLONOSCOPY PROCEDURE (01/15/2018) Colonoscopy [facility] Colonoscopy, External [facility] Comment:Sessile polyp was fo und at the cecum;polypectomy was performed with cold forceps. Mild diverticulosis was noted in the sigmoid colon. Await bx results. Return for colonoscopy in 1 yr or as needed for any changes. Anatomical Region Laterality Modality Endoscopy 01/15/2018 us Historical Provider GI PROCEDURE ORDERABLES F inal Result documented in this encounter Visit Diagnoses Not on filedocumented in this encounter Care Teams Event Coordinator Marketing And Sales Relationship Specialty Start Date End Date Roxanna Hannah MD [address] [place] [phone] PCP - General 03/28/09 05/31/20 documented as of this encounter
--- OUTSIDE RECORDS SUMMARY | 2024-10-06 13:48 | XMS_ITS | Encounter Summary ---
Author Organization [facility] Address [address] [place] [address] Care Team Providers Care Crew Supervisor Name Role Phone Roxanna Hannah MD Primary Care Provider + Reason for Visit * Reason Comments Cough last week starteed w ith a cold, dizzy almost passed out today, has pneumonia alot, Encounter Details Date Type Department Care Team (Late st Contact Info) Description 03/20/2018 13:15 EDT Office Visit [address] [address] Geno Acuña, TACTICAL DEBRIEFER Viral URI with cough (Primary Dx); Benign essential HTN Social History Tobacco Use Types Packs/Day Years [...] Sign Reading Time Taken Comments Blood Pressure 158/84 03/20/2018 1329 EDT Pulse 72 03/20/2018 1329 EDT Temperature 36.6 ??C (97.9 ??F) 03/20/2018 1329 EDT Respiratory Rate - - Oxygen Saturation - - Inhaled Oxygen Concentration - - Weight 117.9 kg (260 lb) 03/20/2018 1329 EDT Height - - Body Mass Index 38.68 10/24/2017 1627 EST documented in this encounter [...] Entry Date Author No 03/20/2018 13:29 EDT Aj Vaishali mcgrath documented in this encounter Patient Instructions * Patient Instructions* Geno Acuña NP - 03/20/2018 13:15 EDT 1. mucinex 1200mg twice a day 2. Flonase, as directed 3. Saline nasal spray documented in this encounter Ordered Prescriptions Prescription Sig Dispense Quantity Refills Last Filled Start Date End Date lisinopril (PRINIVIL, ZESTRIL) 5 mg tabletIndications:B enign essential HTN Take 1 Tab by mouth daily. 30 Tab 03/20/2018 04/29/2018 documented in this encounter Progress Notes * Geno Acuña NP - 03/20/2018 1315 EDT Subjective: Patient ID: Mario Curry is an 62 y.o. male. Chief Complaint Patient presents with ??? Cough last week starteed with a cold, dizzy almost passed out today, has pneumonia alot, HPI Cough Mario felt off balance at [facility] today. He did not feel like he was going to lose consciousness. He says he had nasal congestion that started a week ago. He says it is bad some days and okay others. He says he has a productive cough. He says he is prone to pneumonia. He is only taking ibuprofen for his symptoms. He has had elevated blood pressure for a while. It is usually around 160 systolic. He started taking garlic for blood pressure. Patient Active Problem List Diagnosis ??? Routine [...] health care facility 08/05/2002 ??? Seizure disorder ([facility]) 08/05/2002 ??? Seizures ([facility]) Current Outpatient Prescriptions on File Prior [...] tablet by mouth once daily 90 Tab 0 ??? MULTIVITAMINS (MULTI-VITAMIN ORAL) Take 1 Tab by mouth daily. ??? omeprazole (PRILOSEC) 20 mg capsule TAKE 1 CAPSULE DAILY 90 Cap 3 ??? simvastatin (ZOCOR) 40 mg tablet take 1 tablet by mouth every evening 90 Tab 0 No current facility-administered medications on file prior to visit. Allergies Allergen Reactions ??? Tegretol [Carbamazepine] Rash Social Social History Substance Use Topics ??? Smoking status: Never Smoker ??? Smokeless tobacco: Never Used ??? Alcohol use Yes Comment: 2-3 drinks per week Review of Systems Constitutional: Positive for diaphoresis and malaise/fatigue. Negative for chills and fever. HENT: Positive for congestion. Negative for sore throat. Eyes: Negative for pain and discharge. Respiratory: Positive for cough, sputum production, shortness of breath and wheezing. Cardiovascular: Negative for chest pain and palpitations. Gastrointestinal: Negative for abdominal pain, diarrhea, nausea and vomiting. Genitourinary: Negative for dysuria. Musculoskeletal: Positive for myalgias and neck pain. Skin: Negative for itching and rash. Neurological: Positive for dizziness and headaches. Negative for loss of consciousness. - See HPI Objective: BP (!) 158/84 (BP Cuff Location: Right arm, Patient Position: Sitting, BP Cuff Sizes: Adult, large) Pulse 72 Temp 36.6 ??C (97.9 ??F) (Tympanic) Wt (!) 117.9 kg (260 lb) BMI 38.68 kg/m2 Physical Exam Constitutional: He is oriented to person, place, and time. He appears well- developed and well-nourished. No distress. HENT: Head: Normocephalic and atraumatic. Right Ear: Tympanic membrane and ear canal normal. Left Ear: Tympanic membrane and ear canal normal. Nose: Nose normal. No mucosal edema, rhinorrhea or nasal discharge. Right sinus exhibits no maxillary sinus tenderness and no frontal sinus tenderness. Left sinus exhibits no maxillary sinus tenderness and no frontal sinus tenderness. Mouth/Throat: Oropharynx is clear and moist. Mucous membranes are moist. Eyes: Pupils are equal, round, and reactive to light. Right eye exhibits no discharge. Left eye exhibits no discharge. Neck: Normal range of motion. Neck supple. Cardiovascular: Normal rate, regular rhythm, normal heart sounds and intact distal pulses. Pulmonary/Chest: Effort normal and breath sounds normal. No respiratory distress. He has no wheezes. He has no rhonchi. Abdominal: Soft. He exhibits no distension. There is no tenderness. Musculoskeletal: Normal range of motion. Lymphadenopathy: He has no cervical adenopathy. Neurological: He is alert and oriented to person, place, and time. Skin: Skin is warm and dry. No rash noted. He is not diaphoretic. Psychiatric: He has a normal mood and affect. His behavior is normal. Assessment: 1. Viral URI with cough 2. HTN Plan: Diagnoses and all orders for this visit: Viral URI with cough Patient Instructions 1. mucinex 1200mg twice a day 2. Flonase, as directed 3. Saline nasal spray -will try above, will call if not improved by early next week Benign essential HTN - lisinopril (PRINIVIL, ZESTRIL) 5 mg tablet; Take 1 Tab by mouth daily. -add lisinopril to regimen, patient to follow-up with in 5-6 weeks as scheduled. Will monitor BP at home, decline rx for cuff today. documented in this encounter Plan of Treatment Not on file documented as of this encounter Goals Goal Patient Goal Type Associated Problems Recent Progress Patient-Stated? Author Blood Pressure < 130/80 Blood Pressure Hypertension 130/84(01/13 8:53 EST) No Roxanna Hannah MD Being Active General Obesity Yes Roxanna Hananh MD Note: Being Active Goal: remain very [...] as of this encounter Visit Diagnoses Diagnosis Viral URI with cough- Primary Acute upper respiratory infections of unspecified site Benign essential HTN Essential hypertension, benign documented in this encounter Care Teams Crew Supervisor Relationship Specialty Start Date End Date Roxanna Hannah MD [address] [place] [phone] PCP - General 03/28/09 05/31/20 documented as of this encounter
--- OUTSIDE RECORDS SUMMARY | 2024-10-06 13:48 | XMS_ITS | Encounter Summary ---
Author Organization [facility] Address [address] [place] [address] Care Team Providers Care Seo Manager Name Role Phone Roxanna Hannah MD Primary Care Provider + Reason for Visit * Reason Onset Date Comments Results 10/22/2017 Encounter Details Date Type Department Care Team (Late st Contact Info) Description 10/22/[address] [address] Michaela Taylor, KALYANI Results Social History Tobacco Use Types Packs/Day [...] encounter Miscellaneous Notes * Telephone Encounter - Iwona Troncoso - 10/22/2017 3388 EST Patient is calling back and given Dr. Hannah's message to which patient opted to schedule with on 10/24. * Telephone Encounter - Michaela Moyer RN - 10/22/2017 1613 EST ----- Message from Roxanna Hannah MD sent at 10/22/2017 15:45 EST ----- Please call that final read on shoulder XRAY fine I can ref back to ORTHO vs PT vs Alva Villafuerte here as a start Left message for patient to call back (see above message from Dr. Hannah). Michaela Moyer RN documented in this encounter Plan of Treatment [...] on filedocumented in this encounter Care Teams Seo Manager Relationship Specialty Start Date End Date Roxanna Hannah MD [address] [place] [phone] PCP - General 03/28/09 05/31/20 documented as of this encounter
--- OUTSIDE RECORDS SUMMARY | 2024-10-06 13:48 | XMS_ITS | Encounter Summary ---
Author Organization [facility] Address [address] [place] [address] Care Team Providers Care Business Objects Name Role Phone Roxanna Romero MD Primary Care Provider + Encounter Details Date Type Department Care Team (Late st Contact Info) Description 10/15/2017 Results Only [facility] [phone] Eladio Fischer MD [address] [place] [id number] Social History Tobacco Use Types Packs/Day Years [...] Pressure Hypertension 130/84(01/13 8:53 EST) No Roxanna Romero MD Being Active General Obesity Yes Roxanna Romero MD Note: 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 Confidence level (1= Not very confident; 10 = Very confident): 10 Barriers: None BMI<30 General Obesity Not on track(2019 8:42 EST) Yes Roxanna Romero MD Note: Problem Solving Goal: BMI<30 Confidence level (1= Not very confident; 10 = Very confident): 8 Barriers: None LDL < 100 Result Component Hyperlipidemia 56( 0 12:18 EST) No Maggie Andrade LPN documented as of this encounter Procedures Procedure Name Priority Date/Time Associated Diagnosis Comments SURGICAL PATHOLOGY Routine 10/15/2017 15 :08 EST documented in this encounter Results * SURGICAL PATHOLOGY (10/15/2017 15:08 EST) Pathology Report: SURGICAL PATHOLOGY REPORT Reports generated via electronic interface contain original data; however they are lacking the format of the original report. Caution should be taken when reading/interpreting unformatted reports. Name: ? MARIO CURRY ? Accession #: ? [id number] ? : ? 1955 (Age: 62) ??M ? Collect Date: ? 10/15/2017 ? Location: ? [facility] ? Receive Date: ? 10/15/2017 ? Provider: ELADIO FISCHER MD Copy to: DARNELL ROMERO MD ? 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 - Secondary histologic features of mucosal prolapse within the polyp. - See comment. Comment: Thank you for providing these slides for consultation review. We are completely aligned with your assessment. Although there are some foci of high grade dysplasia bordering on intramucosal carcinoma, the polyp is NEGATIVE FOR definitive invasion (i.e. nothing beyond AJCC pTis). ??2Nd Grade Teacher slides of this case were reviewed at the intradepartmental consultation conference. ?? Document reviewed and electronically signed by: YOAV ALLEN MD Report ??Date: 10/16/2017 15:50 By the signature above, the attending physician certifies that he/she has personally conducted a gross and/or microscopic examination of the described specimens and rendered or confirmed the above diagnosis. Specimen(s) Received: [facility] [id number] (5); 1 block Clinical History: Colon polyps Gross Description: ? Five slides are received for review from [facility], one each labelled [id number] B L1-3, [id number] B L4-5, [id number] B D1, [id number] B D2, [id number] B D3. ??One block is also received for review labelled [id number] B. ?? End of Report [facility] 10/15/2017 15:0 8 EST 10/15/2017 15:08 EST us Eladio Fischer MD PATHOLOGY ORDERABLES Final Resu lt [facility] [address] [place] [address] documented in this encounter Visit Diagnoses Not on filedocumented in this encounter Care Teams Business Objects Relationship Specialty Start Date End Date Roxanna Romero MD [address] [place] [phone] PCP - General 03/28/09 05/31/20 documented as of this encounter
--- OUTSIDE RECORDS SUMMARY | 2024-10-06 13:48 | XMS_ITS | Encounter Summary ---
Author Organization [facility] Address [address] [place] [address] Care Team Providers Care Shank Breaker Name Role Phone Roxanna Hannah MD Primary Care Provider + Reason for Visit * Reason Comments Labs Only Encounter Details Date Type Department Care Team (Late st Contact Info) Description 04/25/2018 14:45 EDT Nurse Only [address] [address] Unknown, Provider, MD Sanchez, Balbina Flores MD [address] [facility], [address] [place] [address] Nurse, [facility] Ronnie White, RN Benign essential HTN; IGT (impaired glucose tolerance); Other hyperlipidemia; Seizure disorder ([facility]) Discharge Disposition: Auto Discharge Social History Tobacco [...] Discharge Diagnoses Diagnosis I10 Essential (primary) hypertension-I10[ICD-10-CM] R73.02 Impaired glucose tolerance (oral)-R73.02[ICD-10-CM] E78.4 Other hyperlipidemia-E78.4[ICD-10-CM] G40.909 Epilepsy, unspecified, not intractable, without status epilepticus-G40.909[ICD-10-CM] documented in this encounter Discharge Disposition Disposition Code Departure Means Destination Auto Discharge documented in this encounter Progress Notes * Becka Vieyra - 04/25/2018 1445 EDT Patient presents to office for venipuncture for A1C, Valproic acid level, Lipid, BMP with a diagnosis of R73.02, G40.909, E78.4, I10 per Dr. Hannah. I was supervised by Dr. jordan who was present and immediately available in the office suite. Becka Vieyra 04/25/2018 14:54 documented in this encounter Plan of Treatment [...] Result Component Hyperlipidemia 56( 0 12:18 EST) Maggie Ma LPN documented as of this encounter Procedures Procedure Name Priority Date/Time Associated Diagnosis Comments HEMOGLOBIN A1C Routine 04/25/2018 14:46 EDT IGT (impaired glucose tolerance) VALPROIC ACID LEVEL Routine 04/25/2018 1 4:46 EDT Seizure disorder (HCC-CMS) LIPID PROFILE (INCLUDES CHOLESTEROL, TRIGLYCERIDES, HDL, LDL) Routine 04/25/2018 14:46 EDT Other hyperlipidemia BASIC METABOLIC PANEL (BMP) Routine 04/25/2018 14:46 EDT Benign essential HTN documented in this encounter Results * VALPROIC ACID LEVEL (04/25/2018 14:46 EDT) Valproic Acid 70.9 50.0 - 100.0 ug/ml 04/25/2018 21:44 EDT [facility] Blood specimen (specimen) BLOOD SPECIMEN / Unknown 04/25/2018 14:46 EDT 04/25/2018 21:18 EDT us Roxanna Hannah MD CHEMISTRY & BLOOD GAS OR DERABLES Final Result [facility] [address] [place] [address] * LIPID PROFILE (INCLUDES CHOLESTEROL, TRIGLYCERIDES, HDL, LDL) (04/25/2018 14:46 EDT) Cholesterol 158 mg/dl 04/25/2018 21:43 EDT [facility] Comment: Desirable:<200 Borderline High:200-239 High:>mg=156 Triglycerides 240 mg/dl 04/25/2018 21:43 T [facility] Comment: Normal:<150 Borderline High:150-199 High:200-499 Very High:>og=111 HDL 29 mg/dl 04/25/2018 21:43 T [facility] Comment: Low:<40 Normal:40-60 Desirable: >60 LDL, Calculated 81 mg/dl 8 21:43 T [facility] Comment: Optimal:<100 Near Optimal:100-129 Borderline High:130-159 High:160-189 Very High:>jk=631 Chol/HDL Ratio 5.4 04/25/2018 21:43 EDT [facility] Fasting? Unknown 04/25/2018 21:19 EDT [facility] Non HDL Cholesterol 129 mg/dl 04/25/2018 21:43 EDT [facility] Comment: Desirable:<130 Borderline:130-159 High: 160-189 Very High: >cj=586 Blood specimen (specimen) BLOOD SPECIMEN / Unknown 04/25/2018 14:46 EDT 04/25/2018 21:18 EDT Roxanna Hannah MD CHEMISTRY & BLOOD GAS OR DERABLES Final Result Performing Organization Address [facility] de Phone Number [facility] [address] [place] [address] * HEMOGLOBIN A1C (04/25/2018 14:46 EDT) Pathologist [facility] Hemoglobin A1C 7.1 % 04/28/2018 9:54 EDT [facility] Comment: Reference Range: <5.7% Normal 5.7-6.4% Prediabetes =>6.5% Diagnostic for diabetes (if confirmed) Goals for glycemic control in diabetes ADA 2017 For non adults with diabetes: ?? Target <7.5% For children and adolescents with type 1 diabetes: ?? Target <7.0% More or less stringent targets may be appropriate for individual patients. Est Avg Glucose 157 mg/dl 8 9:54 EDT [facility] Comment: eAG represents the A1c result expressed as average glucose in mg/dl. Blood specimen (specimen) BLOOD SPECIMEN / Unknown 04/25/2018 14:46 EDT 04/25/2018 21:18 EDT us Roxanna Hannah MD CHEMISTRY & BLOOD GAS OR DERABLES Final Result Performing Organization Address [facility] de Phone Number [facility] [address] [place] [address] * BASIC METABOLIC PANEL (BMP) (04/25/2018 14:46 EDT) Sodium 145 136 - 145 mEq/L 04/25/2018 21:43 [facility] Potassium 4.9 3.5 - 5.0 mEq/L 04/25/2018 21:43 [facility] Chloride 103 96 - 110 mEq/L 04/25/2018 21:43 [facility] CO2 32 22 - 32 mEq/L 04/25/2018 21:43 [facility] BUN 20 10 - 26 mg/dl 04/25/2018 21:43 [facility] Creatinine 0.93 0.66 - 1.25 mg/dl 04/25/2018 21:43 [facility] GFR, Calculated 88 >60 ml/min/1.7 3m2 04/25/2018 21:43 [facility] Comment: eGFR calculated using CKD-EPI equation for non Americans. Multiply eGFR by 1.16 for Americans. Calcium 9.9 8.5 - 10.5 mg/dl 04/25/2018 21:43 [facility] Calculated Calcium 9.7 8.5 - 10.5 mg/dl 04/25/2018 21:43 [facility] Glucose, Serum 87 70 - 100 mg/dl 04/25/2018 21:43 [facility] Fasting? Unknown 04/25/2018 21:19 [facility] Blood specimen (specimen) BLOOD SPECIMEN / Unknown 04/25/2018 14:46 EDT 04/25/2018 21:18 EDT us Roxanna Hannah MD CHEMISTRY & BLOOD GAS OR DERABLES Final Result [facility] [address] [place] [address] documented in this encounter Visit Diagnoses Diagnosis Benign essential HTN Essential hypertension, benign IGT (impaired glucose tolerance) Impaired glucose tolerance test Other hyperlipidemia Seizure disorder (HCC-CMS) Unspecified epilepsy without mention of intractable epilepsy documented in this encounter Care Teams Shank Breaker Relationship Specialty Start Date End Date Roxanna Hannah MD [address] [place] [phone] PCP - General 03/28/09 05/31/20 documented as of this encounter
--- OUTSIDE RECORDS SUMMARY | 2024-10-06 13:48 | XMS_ITS | Encounter Summary ---
Author Organization [facility] Address [address] [place] [address] Care Team Providers Care Kick Plate Installer Name Role Phone Roxanna Hannah MD Primary Care Provider + Reason for Visit * Reason Onset Date Comments Follow-up 05/19/2018 emergency room N 05/17/18 Encounter Details Date Type Department Care Team (Late st Contact Info) Description 05/19/[address] [address] Maggie Andrade LPN Follow-up (emergency room [facility] 05/17/18) Social History Tobacco Use Types Packs/Day Years [...] Entry Date Author No 04/29/2018 14:12 EDT Aj, Bra ndy documented in this encounter Miscellaneous Notes * Telephone Encounter - Kahlil Butler - 05/21/2018 1012 EDT Relayed message to patient * Telephone Encounter - Brunilda Caceres RN - 05/21/[address] Hannah (see orders only note from today) Will order out pt CARDIAC stress testing Left message for patient to call back. Need to relay that Dr. Hannah is ordering the Cardiac Stress Test. * Telephone Encounter - Brunilda Caceres RN - 05/19/2018 1103 EDT Spoke with patient and informed per Dr. Hannah's message. Patient verbalized understanding. No barriers to learning noted. * Telephone Encounter - Roxanna Hannah MD - 05/19/2018 1028 EDT Once I review the ED notes, there is good chance I might REC CARDIAC stress testing If chest pain or upper ext symptoms return to let us know JOSEMANUEL * Telephone Encounter - Maggie Andrade LPN - 05/19/2018 1015 EDT Pt. Was seen at [facility] ER on 05/17 for numbness bilat arms with pain across back and over shoulders and chest Stated he had an EKG and chest xray which were both neg. Stated he had blood work done and negative for an M.I. All I ended up with was a bill.. Stated the numbness in his arms subsided after a few mins. He stated that [facility] mentioned possibly having a stress test in the future. Encouraged pt. To schedule a physical, but he delined. documented in this encounter Plan of Treatment [...] on filedocumented in this encounter Care Teams Kick Plate Installer Relationship Specialty Start Date End Date Roxanna Hannah MD [address] [place] [phone] PCP - General 03/28/09 05/31/20 documented as of this encounter
--- OUTSIDE RECORDS SUMMARY | 2024-10-06 13:48 | XMS_ITS | Encounter Summary ---
Author Organization [facility] Address [address] [place] [address] Care Team Providers Care Nuclear Fuels Research Engineer Name Role Phone Roxanna Hannah MD Primary Care Provider + Reason for Visit * Reason Onset Date Comments Colonoscopy 10/24/2017 Encounter Details Date Type Department Care Team (Late st Contact Info) Description 10/24/[address] [address] Maggie Andrade LPN Colonoscopy Social History Tobacco Use Types Packs/Day Years [...] Telephone Encounter - Maggie Andrade LPN - 10/24/2017 1501 EST Pt. Had a colonoscopy by Dr. Edi Kan on 10/10/17 at [facility]. [place]. Kan consulted with Dr. Yvonne Awad [facility] Pathology regarding specimen results. Michaela from Dr. Kan's office said that Dr. Kan will be meeting with the patient again regarding his results and then send us a note regarding results and when his next colonoscopy is due. documented in this encounter Plan of Treatment [...] on filedocumented in this encounter Care Teams Nuclear Fuels Research Engineer Relationship Specialty Start Date End Date Roxanna Hannah MD [address] [place] [phone] PCP - General 03/28/09 05/31/20 documented as of this encounter
--- OUTSIDE RECORDS SUMMARY | 2024-10-06 13:48 | XMS_ITS | Encounter Summary ---
Author Organization [facility] Address [address] [place] [address] Care Team Providers Care Social And Political Studies Professor Name Role Phone Roxanna Hannah MD Primary Care Provider + Reason for Visit * Reason Onset Date Comments Hand Injury 03/18/2018 Encounter Details Date Type Department Care Team (Late st Contact Info) Description 03/18/[address] [address] Maggie Andrade LPN Hand Injury Social History Tobacco Use Types Packs/Day Years [...] Telephone Encounter - Maggie Andrade LPN - 03/18/2018 1538 EDT Pt was called as he was [place] [facility] [place] after having his right hand 4th knuckle being injured by the horn of a bull. He does not need a f/u. No fx's noted. documented in this encounter Plan of Treatment [...] on filedocumented in this encounter Care Teams Social And Political Studies Professor Relationship Specialty Start Date End Date Roxanna Hannah MD [address] [place] [phone] PCP - General 03/28/09 05/31/20 documented as of this encounter
--- OUTSIDE RECORDS SUMMARY | 2024-10-06 13:49 | XMS_ITS | Encounter Summary ---
Author Organization [facility] Address [address] [place] [address] Care Team Providers Care Route Contractor Name Role Phone Roxanna Hannah MD Primary Care Provider + Reason for Visit * Reason Comments Other Encounter Details Date Type Department Care Team (Late st Contact Info) Description 09/04/2015 Refill [facility] Medicine [address] [address] Roxanna Hannah MD [address] [place] [address] [phone] Other Social History Tobacco Use Types Packs/Day [...] on file documented as of this encounter Mental Status * Because of a physical, mental, or emotional condition, do you have serious difficulty concentrating, remembering, or making decisions? (5 years old or older) Answer Entry Date Author Yes 11/06/2012 16:17 EST Vaishali Rocha documented in this encounter Ordered Prescriptions Prescription Sig Dispense Quantity Refills Last Filled Start Date End Date divalproex (DEPAKOTE) 500 mg delayed release tablet Take 3 tablets at bedtime 270 Tab 1 09/05/2015 6 documented in this encounter Miscellaneous Notes * Telephone Encounter - Ellen Chavira, RN - 09/05/2015 1032 EDT Depakote 500 mg tabs reordered. documented in this encounter Plan of Treatment Not on file documented as of this encounter Goals Goal Patient Goal Type Associated Problems Recent Progress Patient-Stated? 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 Reorder 09/09/2014 09/04/2015 documented as of this encounter Care Teams Route Contractor Relationship Specialty Start Date End Date Roxanna Hannah MD [address] [place] [phone] PCP - General 03/28/09 05/31/20 documented as of this encounter
--- OUTSIDE RECORDS SUMMARY | 2024-10-06 13:49 | XMS_ITS | Encounter Summary ---
Author Organization [facility] Address [address] [place] [address] Care Team Providers Care Geothermal Field Technician Name Role Phone Roxanna Hannah MD Primary Care Provider + Reason for Visit * Reason Onset Date Comments Medications Refill 09/09/2014 Encounter Details Date Type Department Care Team (Late st Contact Info) Description 09/09/2014 Refill [facility] Medicine [address] [address] Roxanna Hannah MD [address] [place] [phone] Medications Refill Social History Tobacco Use Types [...] Date divalproex (DEPAKOTE) 500 mg delayed release tabletIndications: Seizure disorder (HCC-CMS) TAKE 3 TABLETS AT BEDTIME. 270 Tab 3 09/09/2014 5 documented in this encounter Miscellaneous Notes * Telephone Encounter - Roxanna Hannah MD - 09/13/2014 1023 EDT I should see him this fall * Telephone Encounter - Sarah Cabrera - 09/09/2014 1317 EDT Per last OV progress note addressing associated diagnosis for this medication: Return in about 3 months (around 01/25/2014), or if symptoms worsen or fail to improve, for ROV. Routed to PCP to review * Telephone Encounter - Isaura Ray - 09/09/2014 1150 EDT Medication(s) Requested: Depakote # 90 w/ RF Pharmacy: [facility] Last Refill Date: 08/19/14 Last Visit Date: 10/27/13 Next Visit Date: Visit date not found Is patient out of medication? No, patient states the #90 is only for one month, patient was advisedthat he would need a follow up, patient refused, stating he just had his labs done for this medication and wants a years ordered. Isaura Ray 09/09/2014 11:50 documented in this encounter Plan of Treatment Not on file documented as of this encounter Goals Goal Patient Goal Type Associated Problems Recent Progress Patient-Stated? Author Blood Pressure < 130/80 Blood Pressure Hypertension 130/84(2019 8:53 EST) No Roxanna Hannah MD documented as of this encounter Visit Diagnoses Diagnosis Seizure disorder ([facility])- Primary Unspecified epilepsy without mention of intractable epilepsy documented in this encounter Discontinued Medications Medication Sig Discontinue Reason Start Date End Da te divalproex (DEPAKOTE) 500 mg delayed release tablet TAKE 3 TABLETS AT BEDTIME. Reorder 08/19/2014 09/09/2014 documented as of this encounter Care Teams Geothermal Field Technician Relationship Specialty Start Date End Date Roxanna Hannah MD [address] [place] [phone] PCP - General 03/28/09 05/31/20 documented as of this encounter
--- OUTSIDE RECORDS SUMMARY | 2024-10-06 13:49 | XMS_ITS | Encounter Summary ---
Author Organization [facility] Address [address] [place] [address] Care Team Providers Care Rn Behavioral Health Name Role Phone Roxanna Hannah MD Primary Care Provider + Reason for Visit * Reason Comments Other Encounter Details Date Type Department Care Team (Late st Contact Info) Description 07/11/2015 [facility] Medicine [address] [phone] Roxanna Hannah MD [address] [place] [address] [phone] Other Social History Tobacco Use Types Packs/Day [...] on filedocumented in this encounter Care Teams Rn Behavioral Health Relationship Specialty Start Date End Date Roxanna Hannah MD [address] [place] [phone] PCP - General 03/28/09 05/31/20 documented as of this encounter
--- OUTSIDE RECORDS SUMMARY | 2024-10-06 13:49 | XMS_ITS | Encounter Summary ---
Author Organization [facility] Address [address] [place] [address] Care Team Providers Care Outsole Cementer Machine Name Role Phone Roxanna Hannah MD Primary Care Provider + Reason for Visit * Reason Onset Date Comments Results 06/29/2016 Encounter Details Date Type Department Care Team (Late st Contact Info) Description 06/29/[address] [phone] Latesha Ochoa MD [facility] [place] [phone] Results Social History Tobacco Use Types Packs/Day [...] shopping? Answer Date of Assessment Author No 04/10/2016 14:49 EDT documented as of this encounter Mental Status * Because of a physical, mental, or emotional condition, does this person have serious difficulty concentrating, remembering, or making decisions? Answer Entry Date Author No 04/10/2016 14:49 EDT Aj, Bra ndy documented in this encounter Miscellaneous Notes * Telephone Encounter - Latesha Ochoa MD - 06/29/2016 1243 EDT Left VM on pt's cell phone per his instructions. +cx for staph. Plan to keep wound covered, complete antibiotics. Call us with progression. rev'd signs and symptoms to watch for. Rev'd chuck boner and utilization of ED services if needed documented in this encounter Plan of Treatment [...] on filedocumented in this encounter Care Teams Outsole Cementer Machine Relationship Specialty Start Date End Date Roxanna Hannah MD [address] [place] [phone] PCP - General 03/28/09 05/31/20 documented as of this encounter
--- OUTSIDE RECORDS SUMMARY | 2024-10-06 13:49 | XMS_ITS | Encounter Summary ---
Author Organization [facility] Address [address] [place] [address] Care Team Providers Care Forest Officer Name Role Phone Roxanna Hannah MD Primary Care Provider + Reason for Visit * Reason Onset Date Comments Medications Refill 03/26/2016 Encounter Details Date Type Department Care Team (Late st Contact Info) Description 03/26/2016 Refill [facility] Medicine [address] [address] Roxanna Hannah MD [address] [place] [address] [phone] Medications Refill Social History Tobacco Use Types [...] shopping? Answer Date of Assessment Author No 10/25/2015 17:00 EST documented as of this encounter Mental Status * Because of a physical, mental, or emotional condition, does this person have serious difficulty concentrating, remembering, or making decisions? Answer Entry Date Author No 10/25/2015 17:00 EST Vaishali Rocha documented in this encounter Ordered Prescriptions Prescription Sig Dispense Quantity Refills Last Filled Start Date End Date simvastatin (ZOCOR) 40 mg tablet TAKE 1 TABLET EVERY EVENING 90 Tab 0 03/26/2016 6 documented in this encounter Miscellaneous Notes * Telephone Encounter - Michaela Moyer RN - 03/26/2016 1122 EDT Simvastatin prescription approved. * Telephone Encounter - Joi Hidalgo - 03/26/2016 1031 EDT Medication(s) Requested: Simvastatin 40 mg Pharmacy: [facility] Last Refill Date: 01/09/15 qty 90 w/3 refills Last Visit Date: 10/25/15 Next Visit Date: 04/10/2016 Is patient out of medication? yes Joi Hidalgo 03/26/2016 10:31 documented in this encounter Plan of Treatment Not on file documented as of this encounter Goals Goal Patient Goal Type Associated Problems Recent Progress Patient-Stated? Author Blood Pressure < 130/80 Blood Pressure Hypertension 130/84(2019 8:53 EST) No Roxanna Hannah MD Being Active General Obesity Yes Roxnana Hannah MD Note: Being Active Goal: remain [...] Da te simvastatin (ZOCOR) 40 mg tablet TAKE 1 TABLET EVERY EVENING. Reorder 12/27/2014 03/26/2016 documented as of this encounter Care Teams Forest Officer Relationship Specialty Start Date End Date Roxanna Hannah MD [address] [place] [phone] PCP - General 03/28/09 05/31/20 documented as of this encounter
--- OUTSIDE RECORDS SUMMARY | 2024-10-06 13:49 | XMS_ITS | Encounter Summary ---
Author Organization [facility] Address [address] [place] [address] Care Team Providers Care Nuclear Plant Construction Worker Name Role Phone Roxanna Hannah MD Primary Care Provider + Reason for Visit * Reason Comments Hypertension f/u Other had been to [facility] for dizziness x 3 days and lung pain x 2 wks. in March Encounter Details Date Type Department Care Team (Late st Contact Info) Description 05/07/2017 15:30 EDT Office Visit [address] [phone] Roxanna Hannah MD [address] [place] [address] [phone] Essential hypertension (Primary Dx); IGT (impaired glucose tolerance); Mixed hyperlipidemia; Seizure disorder ([facility]) Social History Tobacco Use Types Packs/Day Years [...] Sign Reading Time Taken Comments Blood Pressure 132/84 05/07/2017 1515 EDT Pulse 68 05/07/2017 1515 EDT Temperature 36.7 ??C (98.1 ??F) 05/07/2017 1515 EDT Respiratory Rate - - Oxygen Saturation - - Inhaled Oxygen Concentration - - Weight 112.5 kg (248 lb) 05/07/2017 1515 EDT Height - - Body Mass Index 36.89 10/24/2016 1228 EST documented in this encounter [...] 3 TABLETS AT BEDTIME 270 Tab 3 05/07/2017 8 documented in this encounter Progress Notes * Roxanna Hannah MD - 05/07/2017 1530 EDT Subjective: Patient ID: Mario Curry is an 61 y.o. male. Chief Complaint Patient presents with ??? Hypertension f/u ??? Other [place] [facility] [place] x 3 days and lung pain x 2 wks. in March Episodes dizziness and pleuritic chest pain better CHEST CT has not happened yet, insurance continues to deny CXR report from [facility] ED visit states CHEST CT indicated for persistent changes seen on xray I have been on hold for many many cummulative minutes and am still trying to get peer to peer review Hypertension This is a chronic problem. The current episode started more than 1 year ago. The problem is unchanged. The problem is controlled. Pertinent negatives include no orthopnea, palpitations, peripheral edema or shortness of breath. (Pleuritic chest pain better) There are no associated agents to hypertension. Risk factors for coronary artery disease include male gender and dyslipidemia (IGT). Past treatments include diuretics and lifestyle changes. The current treatment provides moderate improvement.There are no compliance problems. There is no history of kidney disease, CAD/RI or a thyroid problem. There is no history of chronic renal disease or sleep apnea. Hyperlipidemia This is a chronic problem. The current episode started more than 1 year ago. The problem is controlled. Recent lipid tests were reviewed and are normal. Exacerbating diseases include obesity. He has no history of chronic renal disease. There are no known factors aggravating his hyperlipidemia. Pertinent negatives include no shortness of breath. Current antihyperlipidemic treatment includes statins. The current treatment provides moderate improvement of lipids. There are no compliance problems. Risk factors for coronary artery disease include hypertension, male sex and dyslipidemia (IGT). IGT - chronic Diet controlled HgA1 6.0 in February Seizure D/O - on Depakote Levels fine in February No recent Seizures Grief - managing ok About 5 mos after Loreto's Patient Active Problem List Diagnosis ??? Routine [...] Take 1 Cap by mouth daily. ??? desoximetasone (TOPICORT) 0.25 % cream Apply topically 2 times daily. (Patient not taking: Reported on 10/24/2016) 1 Tube 0 ??? DOCOSAHEXANOIC ACID/EPA (FISH OIL ORAL) Take [...] for shortness of breath. Cardiovascular: Negative for palpitations and orthopnea. - See HPI Objective: BP 132/84 (BP Cuff Location: Right arm, Patient Position: Sitting, BP Cuff Sizes: Adult, large) Pulse 68 Temp 36.7 ??C (98.1 ??F) (Tympanic) Wt (!) 112.5 kg (248 lb) BMI 36.89 kg/m2 Physical Exam Constitutional: He appears well-developed and well-nourished. No distress. HENT: Mouth/Throat: Mucous membranes are moist. Oropharynx is clear. Eyes: Conjunctivae are normal. No scleral icterus. Neck: Neck supple. Cardiovascular: Normal rate and regular rhythm. Pulmonary/Chest: Effort normal and breath sounds normal. No respiratory distress. He has no wheezes. He has no rhonchi. Musculoskeletal: He exhibits no edema or tenderness. Lymphadenopathy: He has no cervical adenopathy. Neurological: He is alert. Coordination normal. Skin: No erythema. No pallor. Psychiatric: He has a normal mood and affect. Assessment: Plan: Mario was seen today for hypertension and other. Diagnoses and all orders for this visit: Essential hypertension At goal on HCTZ NO change Labs in 6-7 mos - Basic Metabolic Panel (6 Months); Future IGT (impaired glucose tolerance) Diet controlled Labs in 6-7 mos - Hemoglobin A1c (6 Months); Future Mixed hyperlipidemia On statin - Lipid Profile (Includes Cholesterol, Triglycerides, HDL, LDL); Future Seizure disorder Stable No recent sz - Valproic Acid Level; Future I will continue to pursue CHEST CT as is indicated but insurance continues to deny Other orders - divalproex (DEPAKOTE) 500 mg delayed release tablet; TAKE 3 TABLETS AT BEDTIME Return in about 6 months (around 11/06/2017), or if symptoms worsen or fail to [...] as of this encounter Visit Diagnoses Diagnosis Essential hypertension- Primary Unspecified essential hypertension IGT (impaired glucose tolerance) Impaired glucose tolerance test Mixed hyperlipidemia Seizure disorder (HCC-CMS) Unspecified epilepsy without mention of intractable epilepsy documented in this encounter Discontinued Medications Medication Sig Discontinue Reason Start Date End Da te divalproex (DEPAKOTE) 500 mg delayed release tablet TAKE 3 TABLETS AT BEDTIME Reorder 03/05/2017 05/07/2017 documented as of this encounter Care Teams Nuclear Plant Construction Worker Relationship Specialty Start Date End Date Roxanna Hannah MD [address] [place] [phone] PCP - General 03/28/09 05/31/20 documented as of this encounter
--- OUTSIDE RECORDS SUMMARY | 2024-10-06 13:49 | XMS_ITS | Encounter Summary ---
Author Organization [facility] Address [address] [place] [address] Care Team Providers Care Lead Esthetician Name Role Phone Roxanna Hannah MD Primary Care Provider + Reason for Visit * Reason Comments Rash recurrent rash on le ft arm , follow up ER in [place] 06-17-16 Encounter Details Date Type Department Care Team (Late st Contact Info) Description 06/22/2016 11:30 EDT Office Visit [address] [address] Unknown, Provider, Joseline English MD [address] [place] [address] [phone] Rash and nonspecific skin eruption (Primary Dx) Social History Tobacco Use Types [...] Sign Reading Time Taken Comments Blood Pressure 148/84 06/22/2016 1133 EDT Pulse 68 06/22/2016 1133 EDT Temperature - - Respiratory Rate 16 06/22/2016 1133 EDT Oxygen Saturation - - Inhaled Oxygen Concentration - - Weight 111.1 kg (245 lb) 06/22/2016 1133 EDT Height - - Body Mass Index 36.44 04/10/2016 1448 EDT documented in this encounter Functional Status [...] Entry Date Author No 04/10/2016 14:49 EDT Vaishali Rocha documented in this encounter Patient Instructions * Patient Instructions* Joseline Mack MD - 06/22/2016 12:23 EDT Please call if rash is not improving with topical steroid cream and prednisone taper by middle of next week (first week of June). documented in this encounter Ordered Prescriptions Prescription Sig Dispense Quantity Refills Last Filled Start Date End Date desoximetasone (TOPICORT) 0.25 % cream Apply topically 2 times daily. 1 Tube 0 06/22/2016 7 documented in this encounter Progress Notes * Ebony Shea MD - 06/24/2016 1759 EDT Attestation Statement: I saw and examined the patient and discussed the findings and plans with theresident/fellow. Ebony Shea MD 06/24/2016 17:59 * Joseline Mack MD - 06/22/2016 1150 EDT Subjective: Patient ID: Mario Curry is an 61 y.o. male. Chief Complaint Patient presents with ??? Rash recurrent rash on left arm , follow up ER in [place] 16 HPI Rash Started 3 weeks ago, started as flat red lesion on left forearm, with itching, denies pain Now 3.5 cm x 4cm and raised, beefy pink appearance, has been weepy with drainage, has been keeping it covered. 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 Larger lesion somewhat improved, now not weeping like it was before Now with second lesion (15mm x 15mm), flat, red appearance that started 3 days ago-this one is not weeping or open lesion Has also been using either a hydrocortisone cream or a topical antifungal. He is not sure which. No fevers, chills or other systemic symptoms. Patient Active Problem List Diagnosis ??? Routine [...] Obesity, Class I, BMI 30-34.9 Past Medical History Diagnosis Date ??? Erectile dysfunction ??? Abnormal glucose tolerance test 03/09/2009 ??? Allergic rhinitis 03/19/2007 ??? Hyperlipidemia 01/31/2005 ??? Essential hypertension 10/24/2004 ??? Seizure disorder 08/05/2002 ??? Routine general medical examination at health care facility 08/05/2002 ??? GERD (gastroesophageal reflux disease) 08/05/2002 ??? Seizures ??? Impaired glucose tolerance 10/03/2011 Current Outpatient Prescriptions on File Prior to [...] both nostrils daily. 16 g 2 ??? GLUC/ROSIBEL-MSM#1/VIT C/ZAYNAB/BOR (VOGEWHZXNOJ-ZDGQK-KIH COMPLEX ORAL) Take 1 Tab by mouth daily ??? hydrochlorothiazide (MICROZIDE) 12.5 mg capsule TAKE 1 CAPSULE DAILY 90 Cap 3 ??? MULTIVITAMINS (MULTI-VITAMIN ORAL) Take 1 Tab by mouth daily. ??? omeprazole (PRILOSEC) 20 mg capsule TAKE 1 CAPSULE DAILY 90 Cap 3 ??? simvastatin (ZOCOR) 40 mg tablet TAKE 1 TABLET EVERY EVENING 90 Tab 3 No current facility-administered medications on file prior to visit. Allergies Allergen Reactions ??? Tegretol [Carbamazepine] Rash Social History Substance Use Topics ??? Smoking status: Never Smoker ??? Smokeless tobacco: Never Used ??? Alcohol Use: Yes Comment: 2-3 drinks per week Review of Systems Constitutional: Negative for fever and chills. HENT: Negative for congestion and sore throat. Eyes: Negative for blurred vision. Respiratory: Negative for cough, shortness of breath and wheezing. Cardiovascular: Negative for chest pain and palpitations. Gastrointestinal: Negative for heartburn, nausea, vomiting, abdominal pain, diarrhea, constipation and blood in stool. Musculoskeletal: Negative. Skin: Positive for itching and rash. Neurological: Negative for dizziness, tingling, sensory change and headaches. Endo/Heme/Allergies: Does not bruise/bleed easily. Psychiatric/Behavioral: Negative for depression. The patient is not nervous/anxious. - See HPI Objective: BP 148/84 mmHg Pulse 68 Resp 16 Wt 111.131 kg (245 lb) Physical Exam Constitutional: He is oriented to person, place, and time. No distress. Obese middle-aged male HENT: Head: Normocephalic and atraumatic. Eyes: Conjunctivae and EOM are normal. Pupils are equal, round, and reactive to light. Right eye exhibits no discharge. Left eye exhibits no discharge. Neck: Normal range of motion. Cardiovascular: Intact distal pulses. Musculoskeletal: Normal range of motion. Neurological: He is alert and oriented to person, place, and time. Skin: Skin is warm and dry. Rash noted. Lesions of Left forearm as described in HPI. Psychiatric: He has a normal mood and affect. His behavior is normal. Vitals reviewed. Assessment: Plan: Mario was seen today for rash. Diagnoses and all orders for this visit: Rash and nonspecific skin eruption Encouraged patient to complete prednisone taper, as given from his previous ED visit. We will prescribe topical steroid cream. Although most likely etiology of skin eruption is secondary to possible exposure to poison parsnip, rash is somewhat atypical for a contact dermatitis. Encouraged patientto return and discussed possibility of future consultation with dermatology or biopsy if the rash does not resolve within the next 5-7 days. Other orders - desoximetasone (TOPICORT) 0.25 % cream; Apply topically 2 times daily. Patient discussed and seen with attending Dr. Shea at the time of the visit. Joseline Mack M.D. PGY1 Family Medicine Pager # [phone] documented in this encounter Procedure Notes * Joseline Mack MD - 06/22/2016 1333 EDT Procedure: Procedures documented in this encounter Plan of Treatment [...] as of this encounter Visit Diagnoses Diagnosis Rash and nonspecific skin eruption- Primary Rash and other nonspecific skin eruption documented in this encounter Care Teams Lead Esthetician Relationship Specialty Start Date End Date Roxanna Hannah MD [address] [place] [phone] PCP - General 03/28/09 05/31/20 documented as of this encounter
--- OUTSIDE RECORDS SUMMARY | 2024-10-06 13:49 | XMS_ITS | Encounter Summary ---
Author Organization [facility] Address [address] [place] [address] Care Team Providers Care Head Cager Name Role Phone Roxanna Hannah MD Primary Care Provider + Reason for Visit * Reason Comments Other Encounter Details Date Type Department Care Team (Late st Contact Info) Description 10/14/2014 Refill [facility] Medicine [address] [address] Roxanna Hannah MD [address] [place] [address] [phone] Other Social History Tobacco Use Types Packs/Day [...] Refills Last Filled Start Date End Date hydrochlorothiazid e (MICROZIDE) 12.5 mg capsule TAKE 1 CAPSULE DAILY 90 Cap 0 10/14/2014 5 documented in this encounter Miscellaneous Notes * Telephone Encounter - Maritza Cleaning, RN - 12/27/2016 1214 EST VM left for pt to call office. 2 weeks worth of Depakote has been called into [facility]. Does he know if [facility] [employer] mail service have his Depakote on the way or does he need an Rx sent to them as well. * Telephone Encounter - Michaela Moyer RN - 10/14/2014 0847 EST PAIGE 10/27/13 Per that office visit note, pt was to follow up in 3 months. Needs appointment scheduled. Last prescription for HCTZ given 10/27/13 for 90 with 3 refills. Prescription approved for 90 days. documented in this encounter Plan of Treatment [...] Discontinue Reason Start Date End Da te hydrochlorothiazide (MICROZIDE) 12.5 mg capsule Take 1 Cap by mouth daily. Reorder 10/27/2013 10/14/2014 documented as of this encounter Care Teams Head Cager Relationship Specialty Start Date End Date Roxanna Hannah MD [address] [place] [phone] PCP - General 03/28/09 05/31/20 documented as of this encounter
--- OUTSIDE RECORDS SUMMARY | 2024-10-06 13:49 | XMS_ITS | Encounter Summary ---
Author Organization [facility] Address [address] [place] [address] Care Team Providers Care Nuisance Animal Damage Control Agent Name Role Phone Roxanna Hannah MD Primary Care Provider + Reason for Visit * Reason Onset Date Comments URI 01/30/2017 Encounter Details Date Type Department Care Team (Late st Contact Info) Description 01/30/[address] [address] Maggie Andrade LPN URI Social History Tobacco Use Types Packs/Day Years [...] shopping? Answer Date of Assessment Author No 10/24/2016 12:31 EST documented as of this encounter Mental Status * Because of a physical, mental, or emotional condition, does this person have serious difficulty concentrating, remembering, or making decisions? Answer Entry Date Author No 10/24/2016 12:31 EST Vaishali Rocha documented in this encounter Miscellaneous Notes * Telephone Encounter - Iwona Troncoso - 01/30/2017 0938 EST Patient is calling back, declines scheduling, states he is going to give it a few days. * Telephone Encounter - Maggie Andrade LPN - 01/30/2017 0918 EST Pt was called as he was seen at [facility] on 01/28 for URI s/s. Dx'd with Pneumonia. He was advised to be seen within 3-[address] Hannah has some openings this am for f/u. Please try to schedule a 30 jorden't. documented in this encounter Plan of Treatment [...] on filedocumented in this encounter Care Teams Nuisance Animal Damage Control Agent Relationship Specialty Start Date End Date Roxanna Hannah MD [address] [place] [phone] PCP - General 03/28/09 05/31/20 documented as of this encounter
--- OUTSIDE RECORDS SUMMARY | 2024-10-06 13:49 | XMS_ITS | Encounter Summary ---
Author Organization [facility] Address [address] [place] [address] Care Team Providers Care Child Welfare Specialist Name Role Phone Roxanna Hannah MD Primary Care Provider + Reason for Visit * Reason Onset Date Comments CT Scan 04/18/2017 Encounter Details Date Type Department Care Team (Late st Contact Info) Description 04/18/[address] [phone] Roxanna Hannah MD [address] [place] [phone] CT Scan Social History Tobacco Use Types Packs/Day Years [...] shopping? Answer Date of Assessment Author No 03/05/2017 11:15 EDT documented as of this encounter Mental Status * Because of a physical, mental, or emotional condition, does this person have serious difficulty concentrating, remembering, or making decisions? Answer Entry Date Author No 03/05/2017 11:15 EDT Vaishali Rocha documented in this encounter Miscellaneous Notes * Telephone Encounter - Hallie Parisi - 04/18/2017 0840 EDT Please review and discuss with your provider at weekly meeting. CT was denied by patient's insurance, [employer]. If Dr. Hannah wants to appeal, she may call: [phone]. His ID # [id number]. documented in this encounter Plan of Treatment [...] on filedocumented in this encounter Care Teams Child Welfare Specialist Relationship Specialty Start Date End Date Roxanna Hannah MD [address] [place] [phone] PCP - General 03/28/09 05/31/20 documented as of this encounter
--- OUTSIDE RECORDS SUMMARY | 2024-10-06 13:49 | XMS_ITS | Encounter Summary ---
Author Organization [facility] Address [address] [place] [address] Care Team Providers Care Ironworker Foreman Name Role Phone Roxanna Hannah MD Primary Care Provider + Encounter Details Date Type Department Care Team (Late st Contact Info) Description 12/22/2014 Orders Only [facility] Family Medicine - [address] [phone] Roxanna Hannah MD [address] [place] [address] [phone] Screening (Primary Dx); IGT (impaired glucose tolerance) Social History Tobacco Use Types Packs/Day Years [...] as of this encounter Visit Diagnoses Diagnosis Screening- Primary Screening for unspecified condition IGT (impaired glucose tolerance) Impaired glucose tolerance test documented in this encounter Care Teams Ironworker Foreman Relationship Specialty Start Date End Date Roxanna Hannah MD [address] [place] [phone] PCP - General 03/28/09 05/31/20 documented as of this encounter
--- OUTSIDE RECORDS SUMMARY | 2024-10-06 13:49 | XMS_ITS | Encounter Summary ---
Author Organization [facility] Address [address] [place] [address] Care Team Providers Care General Superintendent Name Role Phone Roxanna Hannah MD Primary Care Provider + Reason for Visit * Reason Onset Date Comments Prior Auth, Other (i.e. radiology, etc.) 017 Encounter Details Date Type Department Care Team (Late st Contact Info) Description 05/08/[address] [phone] Roxanna Hannah MD [address] [place] [address] [phone] Prior Auth, Other (i.e. radiology, etc.) Social History Tobacco Use Types Packs/Day Years [...] Author No 05/07/2017 15:20 EDT Vaishali Rocha shaunrena documented in this encounter Miscellaneous Notes * Telephone Encounter - Hallie Parisi - 05/08/2017 1433 EDT FYI - Received notification from patient's insurance that the CT Lung has been denied, again. Letter given to Maggie. documented in this encounter Plan of [...] on filedocumented in this encounter Care Teams General Superintendent Relationship Specialty Start Date End Date Roxanna Hannah MD [address] [place] [phone] PCP - General 03/28/09 05/31/20 documented as of this encounter
--- OUTSIDE RECORDS SUMMARY | 2024-10-06 13:49 | XMS_ITS | Encounter Summary ---
Author Organization [facility] Address [address] [place] [address] Care Team Providers Care Primary Mill Roller Name Role Phone Roxanna Hannah MD Primary Care Provider + Reason for Visit * Reason Onset Date Comments Labs Only 02/27/2017 Encounter Details Date Type Department Care Team (Late st Contact Info) Description 02/27/[address] [phone] Roxanna Hannah MD [address] [place] [address] [phone] Labs Only Social History Tobacco Use Types [...] * Telephone Encounter - Kahlil Butler - 02/27/2017 1253 EDT TC to pt, he now wants to have blood drawn at the appt on 03/05. * Telephone Encounter - Vivien Cleveland LPN - 02/27/2017 1058 EDT The only labs patient is triggering for is HIV and Hep C; his last lipid profile and A1C were done 04/03/16 Would you like to have him have labs done? * Telephone Encounter - Kahlil Butler - 02/27/2017 1053 EDT Patient has an appt on 03/05 with , would like an order to get blood work done documented in this encounter Plan of Treatment [...] Barriers: None documented as of this encounter Results * HEPATITIS C AB W REFLEX TO HCV RNA BY PCR (03/05/2017 12:20 EDT) Hep C Ab w Rfx PCR Negative Negative 03/06/2017 10:54 EDT [facility] Comment:Reference Range: Neg ative Blood specimen (specimen) BLOOD SPECIMEN / Unknown 03/05/2017 12:20 EDT 03/05/2017 18:54 EDT us Roxanna Hannah MD CHEMISTRY & BLOOD GAS OR DERABLES Final Result Performing Organization Address City/[facility]/ZIP Co de Phone Number [facility] [address] [place] [address] * HIV 1/2 ANTIBODY (03/05/2017 12:20 EDT) HIV 1/2 Antibody Negative 03/06/20 17 12:07 EDT [facility] Comment: If acute HIV-1 infection is suspected in a high risk patient, submit plasma specimen for HIV-1 RNA quantification test. Reference Range: ??Negative Assayed utilizing Noomeo chemiluminescent technology. Blood specimen (specimen) BLOOD SPECIMEN / Unknown 03/05/2017 12:20 EDT 03/05/2017 18:54 EDT us Roxanna Hannah MD IMMUNOLOGY AND SEROLOGY ORDERABLES Final Result Performing Organization Address [facility] Co de Phone Number [facility] [address] [place] [address] * VALPROIC ACID LEVEL (03/05/2017 12:20 EDT) Valproic Acid 89.1 50.0 - 100.0 ug/ml 03/05/2017 20:10 EDT [facility] Blood specimen (specimen) BLOOD SPECIMEN / Unknown 03/05/2017 12:20 EDT 03/05/2017 18:54 EDT us Roxanna Hannah MD CHEMISTRY & BLOOD GAS OR DERABLES Final Result Performing Organization Address City/[facility]/ZIP Co de Phone Number [facility] [address] [place] [address] * HEMOGLOBIN A1C (03/05/2017 12:20 EDT) Hemoglobin A1C 6.0 % 03/06/2017 9:46 T [facility] Comment: Reference Range: <5.7% Normal 5.7-6.4% Increased risk for diabetes =>6.5% Diagnostic for diabetes (if confirmed) The A1c goal for non adults in general is <7%. The A1c goal for selected patients may be significantly lower than 7% if this can be achieved without significant hypoglycemia or other adverse effects of treatment. Est Avg Glucose 126 mg/dl 7 9:46 T [facility] Comment: eAG represents the A1c result expressed as average glucose in mg/dl. Blood specimen (specimen) BLOOD SPECIMEN / Unknown 03/05/2017 12:20 EDT 03/05/2017 18:54 EDT us Roxanna Hannah MD CHEMISTRY & BLOOD GAS OR DERABLES Final Result Performing Organization Address City/State/[facility] Co de Phone Number [facility] [address] [place] [address] * LIPID PROFILE (INCLUDES CHOLESTEROL, TRIGLYCERIDES, HDL, LDL) (03/05/2017 12:20 EDT) Cholesterol 137 mg/dl 03/05/2017 19:29 [facility] Comment: Desirable:<200 Borderline High:200-239 High:>fi=650 Triglycerides 104 mg/dl 03/05/2017 19:29 [facility] Comment: Normal:<150 Borderline High:150-199 High:200-499 Very High:>uf=782 HDL 39 mg/dl 03/05/2017 19:29 [facility] Comment: Low:<40 Normal:40-60 Desirable: >60 LDL, Calculated 77 mg/dl 7 19:29 [facility] Comment: Optimal:<100 Near Optimal:100-129 Borderline High:130-159 High:160-189 Very High:>rd=068 Chol/HDL Ratio 3.5 03/05/2017 19:29 [facility] Fasting? Unknown 03/05/2017 18:55 [facility] Non HDL Cholesterol 98 mg/dl 03/05/2017 19:29 [facility] Comment: Desirable:<130 Borderline:130-159 High: 160-189 Very High: >sn=472 Blood specimen (specimen) BLOOD SPECIMEN / Unknown 03/05/2017 12:20 EDT 03/05/2017 18:54 EDT us Roxanna Hannah MD CHEMISTRY & BLOOD GAS OR DERABLES Final Result [facility] [address] [place] [address] * (ABNORMAL) BASIC METABOLIC PANEL (03/05/2017 12:20 EDT) Sodium 148(H) 136 - 145 mEq/L 03/05/2017 19:29 [facility] Potassium 4.6 3.5 - 5.0 mEq/L 03/05/2017 19:29 [facility] Chloride 105 96 - 110 mEq/L 03/05/2017 19:29 [facility] CO2 30 22 - 32 mEq/L 03/05/2017 19:29 [facility] BUN 25 10 - 26 mg/dl 03/05/2017 19:29 [facility] Creatinine 1.04 0.66 - 1.25 mg/dl 03/05/2017 19:29 [facility] GFR, Calculated 78 >60 ml/min/1.7 3m2 03/05/2017 19:29 [facility] Comment: eGFR calculated using CKD-EPI equation for non Americans. Multiply eGFR by 1.16 for Americans. Calcium 10.0 8.5 - 10.5 mg/dl 03/05/2017 19:29 [facility] Calculated Calcium 9.4 8.5 - 10.5 mg/dl 03/05/2017 19:29 [facility] Glucose, Serum 83 70 - 100 mg/dl 03/05/2017 19:29 [facility] Fasting? Unknown 03/05/2017 18:55 [facility] Blood specimen (specimen) BLOOD SPECIMEN / Unknown 03/05/2017 12:20 EDT 03/05/2017 18:54 EDT us Roxanna Hannah MD CHEMISTRY & BLOOD GAS OR DERABLES Final Result [facility] [address] [place] [address] documented in this encounter Visit Diagnoses Diagnosis Benign essential HTN- Primary Essential hypertension, benign Screening cholesterol level Screening for lipoid disorders IGT (impaired glucose tolerance) Impaired glucose tolerance test Seizure disorder (HCC-CMS) Unspecified epilepsy without mention of intractable epilepsy Screening for HIV (human immunodeficiency virus) Special screening examination for other specified viral diseases Need for hepatitis C screening test Special screening examination for other specified viral diseases documented in this encounter Care Teams Primary Mill Roller Relationship Specialty Start Date End Date Roxanna Hannah MD [address] [place] [phone] PCP - General 03/28/09 05/31/20 documented as of this encounter
--- OUTSIDE RECORDS SUMMARY | 2024-10-06 13:49 | XMS_ITS | Encounter Summary ---
Author Organization [facility] Address [address] [place] [address] Care Team Providers Care Cutting Machine Tender Helper Name Role Phone Roxanna Hannah MD Primary Care Provider + Reason for Visit * Reason Comments Other Encounter Details Date Type Department Care Team (Late st Contact Info) Description 03/10/2015 [facility] Family Medicine [address] [address] Roxanna Hannah MD [address] [place] [address] [phone] Other Social History Tobacco Use Types Packs/Day [...] encounter Miscellaneous Notes * Telephone Encounter - Jad Reid - 03/16/2015 1243 EDT Images from the original note were not included. Isaura Ray [facility] Practice Rn Patient has not returned multiple calls * Telephone Encounter - Jasmin Lino RN - 03/10/2015 0914 EDT Zocor script was sent to [facility] on 12/27/14 for a year, Please validate with the pharmacy documented in this encounter Plan of Treatment [...] on filedocumented in this encounter Care Teams Cutting Machine Tender Helper Relationship Specialty Start Date End Date Roxanna Hannah MD [address] [place] [phone] PCP - General 03/28/09 05/31/20 documented as of this encounter
--- OUTSIDE RECORDS SUMMARY | 2024-10-06 13:49 | XMS_ITS | Encounter Summary ---
Author Organization [facility] Address [address] [place] [address] Care Team Providers Care Referral Agent Name Role Phone Roxanna Hannah MD Primary Care Provider + Reason for Referral * Radiology Services (Routine) - Closed Specialty Diagnoses / Procedures Referred By Nela bravo Referred To Contact Diagnoses Chest wall pain Recurrent pneumonia Procedures CT CHEST Roxanna Hannah MD Phone: tel: fax: Referral ID Status Reason Start Date Expiration Date Visits Re quested Visits Authorized [id number] Closed 03/05/2017 1 1 Reason for Visit * Reason Comments MEDICATION CHECK Ear Problem would like ears [facility] [place] Encounter Details Date Type Department Care Team (Latest Contact Info) Description 03/05/2017 11:15 EDT Office Visit [facility] Family Medicine [address] [address] Roxanna Hannah MD [address] [place] [phone] Benign essential HTN (Primary Dx); Need for shingles vaccine; Seizure disorder (CMS-HCC); Chest wall pain; Recurrent pneumonia; Screening cholesterol level; IGT (impaired glucose tolerance); Screening for HIV (human immunodeficiency virus); Need for hepatitis C screening test Discharge Disposition: Auto Discharge Social History Tobacco [...] Sign Reading Time Taken Comments Blood Pressure 148/90 03/05/2017 1110 EDT Pulse 80 03/05/2017 1110 EDT Temperature 36.9 ??C (98.4 ??F) 03/05/2017 1110 EDT Respiratory Rate - - Oxygen Saturation - - Inhaled Oxygen Concentration - - Weight 111.1 kg (245 lb) 03/05/2017 1110 EDT Height - - Body Mass Index 36.44 10/24/2016 1228 EST documented in this encounter [...] (primary) hypertension-I10[ICD-10-CM] R73.02 Impaired glucose tolerance (oral)-R73.02[ICD-10-CM] Z11.59 Encounter for screening for other viral diseases-Z11.59[ICD-10-CM] Z11.4 Encounter for screening for human immunodeficiency virus [HIV]-Z11.4[ICD-10-CM] Z13.220 Encounter for screening for lipoid disorders-Z13.220[ICD-10-CM] G40.909 Epilepsy, unspecified, not intractable, without status epilepticus-G40.909[ICD-10-CM] documented in this encounter Ordered Prescriptions Prescription Sig Dispense Quantity Refills Last Filled Start Date End Date hydroCHLOROthiazid e (HYDRODIURIL) 25 mg tablet Take 1 Tab by mouth daily. 90 Tab 3 03/05/2017 8 simvastatin (ZOCOR) 40 mg tablet TAKE 1 TABLET EVERY EVENING 90 Tab 3 03/05/2017 8 divalproex (DEPAKOTE) 500 mg delayed release tablet TAKE 3 TABLETS AT BEDTIME 90 Tab 3 03/05/2017 7 documented in this encounter Discharge Disposition Disposition Code Departure Means Destination Auto Discharge documented in this encounter Progress Notes * Roxanna Hannah MD - 03/05/2017 1115 EDT Subjective: Patient ID: Mario Curry is an 61 y.o. male. Chief Complaint Patient presents with ??? MEDICATION CHECK ??? Ear Problem would like ears checked Hypertension This is a chronic problem. The current episode started more than 1 year ago. The problem is unchanged. The problem is uncontrolled. Pertinent negatives include no chest pain, headaches, palpitations,peripheral edema, shortness of breath or sweats. There are no associated agents to hypertension. Risk factors for coronary artery disease include dyslipidemia, obesity and male gender. Past treatments include diuretics. The current treatment provides mild improvement. There are no compliance problems. There is no history of kidney disease, CAD/MA or a thyroid problem. There is no history of chronic renal disease or sleep apnea. Hyperlipidemia This is a chronic problem. The current episode started more than 1 year ago. The problem is controlled. Recent lipid tests were reviewed and are normal. Exacerbating diseases include obesity. He has no history of chronic renal disease or diabetes. Pertinent negatives include no chest pain or shortness of breath. Current antihyperlipidemic treatment includes statins. The current treatment providesmoderate improvement of lipids. There are no compliance problems. Risk factors for coronary artery disease include dyslipidemia, hypertension, male sex and obesity (IGT). IGT - diet controlled Due for annual labs Seizure D/O - on Depakote Stable and seizure free for years Due for Depakote level He also mentions right side/lateral chest wall discomfort Not a true pain, but definitely aware of issue Has had 2 CXR confirmed PNA RUL 09/2016 and 01/30 RLL CXR were done at [facility] (scanned) Never had much cough or SOB and no fevers with these episodes He is non-smoker but had significant second hand smoke exposure Grief - managing ok [place] last fall Peritoneal carcinoma Patient Active Problem List Diagnosis ??? Routine [...] Take 81 mg by mouth daily. ??? desoximetasone (TOPICORT) 0.25 [...] Cardiovascular: Negative for chest pain and palpitations. Neurological: Negative for headaches. - See HPI Objective: BP (!) 148/90 (BP Cuff Location: Right arm, Patient Position: Sitting, BP Cuff Sizes: Adult, large) Pulse 80 Temp 36.9 ??C (98.4 ??F) (Tympanic) Wt (!) 111.1 kg (245 lb) BMI 36.44 kg/m2 Physical Exam Constitutional: He appears well-developed and well-nourished. No distress. Eyes: Conjunctivae are normal. No scleral icterus. Cardiovascular: Normal rate, regular rhythm and normal heart sounds. Pulmonary/Chest: Effort normal. He exhibits no tenderness. Neurological: He is alert. Coordination normal. Skin: No erythema. No pallor. Assessment: Plan: Mario was seen today for medication check and ear problem. Diagnoses and all orders for this visit: Seizure disorder Stable No recent seizures On Depakote Level today - Valproic Acid Level Chest wall pain (right lateral) and Recurrent pneumonia (RUL, then RLL) We discussed this at length He really wanted what sounds like total body scan and I explained why we do not REC this The CHEST CT is a really good place to start for his clinical circumstance - CT CHEST Benign essential HTN A bit above goal Will increase HCTZ to 25 mg - Basic Metabolic Panel HLD On Zocor 20 mg - Lipid Profile IGT (impaired glucose tolerance) - Hemoglobin A1c (future) Need for shingles vaccine - Shingles (Herpes Zoster) SQ Screening for HIV (human immunodeficiency virus) - HIV 1/2 Antibody Need for hepatitis C screening test - Hepatitis C Ab w Reflex to HCV RNA by PCR Other orders - Cod Liver Oil oil; Take 1 Cap by mouth daily. - divalproex (DEPAKOTE) 500 mg delayed release tablet; TAKE 3 TABLETS AT BEDTIME - Cancel: hydroCHLOROthiazide (MICROZIDE) 12.5 mg capsule; TAKE 1 CAPSULE DAILY - simvastatin (ZOCOR) 40 mg tablet; TAKE 1 TABLET EVERY EVENING - hydroCHLOROthiazide (HYDRODIURIL) 25 mg tablet; Take 1 Tab by mouth daily. Return in about 2 months (around 05/05/2017), or if symptoms worsen or fail to improve, for ROV. * Olinda Tayolr LPN - 03/05/2017 1115 EDT Patient Education Topic: shingles vaccine Method: Handout Taught to: Patient Barriers: None Outcomes: verbalized understanding Signature: Olinda Taylor LPN 03/05/2017 12:21 Venipuncture performed for bmp,lipid panel,A1C,valproic acid, HIV 1/2 AB ,hep C AB W reflexto HCV rna by pcr Per orders of DR Hannah Diagnosis of screening for hep C and HIV, seizure disorder,IGT screening for HDL , HTN Olinda Taylor LPN 03/05/2017 12:23 documented in this encounter Plan of Treatment Scheduled Orders Name Type Priority Associated Diagnoses Orde r Schedule CT CHEST Imaging Routine Chest wall pain Recurrent pneumonia Ordered: 03/05/2017 documented as of this encounter Goals Goal [...] Procedure Name Priority Date/Time Associated Diagnosis Comments HEPATITIS C AB W REFLEX TO HCV RNA BY PCR Routine 03/05/2017 12:20 EDT Need for hepatitis C screening test HIV 1/2 ANTIGEN AND ANTIBODY, 4TH GENERATION Routine 03/05/2017 12:20 EDT Screening for HIV (human immunodeficiency virus) HEMOGLOBIN A1C Routine 03/05/2017 12:20 EDT IGT (impaired glucose tolerance) VALPROIC ACID LEVEL Routine 03/05/2017 12:20 EDT Seizure disorder (CMS-HCC) LIPID PROFILE (INCLUDES CHOLESTEROL, TRIGLYCERIDES, HDL, LDL) Routine 03/05/2017 12:20 EDT Screening cholesterol level BASIC METABOLIC PANEL (BMP) Routine 03/05/2017 12:20 EDT Benign essential HTN documented in this encounter Results * HEPATITIS C AB W REFLEX TO HCV RNA BY PCR (03/05/2017 12:20 EDT) Hep C Ab w Rfx PCR Negative Negative 03/06/2017 10:54 EDT [facility] Comment:Reference Range: Neg ative Blood specimen (specimen) BLOOD SPECIMEN / Unknown 03/05/2017 12:20 EDT 03/05/2017 18:54 EDT Roxanna Hannah MD CHEMISTRY & BLOOD GAS OR DERABLES Final Result Performing Organization Address [facility] Co de Phone Number [facility] [address] [place] [address] * HIV 1/2 ANTIBODY (03/05/2017 12:20 EDT) HIV 1/2 Antibody Negative 03/06/20 17 12:07 EDT [facility] Comment: If acute HIV-1 infection is suspected in a high risk patient, submit plasma specimen for HIV-1 RNA quantification test. Reference Range: ??Negative Assayed utilizing [employer] chemiluminescent technology. Blood specimen (specimen) BLOOD SPECIMEN / Unknown 03/05/2017 12:20 EDT 03/05/2017 18:54 EDT Roxanna Hannah MD IMMUNOLOGY AND SEROLOGY ORDERABLES Final Result Performing Organization Address City/[facility]/ZIP Co de Phone Number [facility] [address] [place] [address] * VALPROIC ACID LEVEL (03/05/2017 12:20 EDT) Valproic Acid 89.1 50.0 - 100.0 ug/ml 03/05/2017 20:10 EDT [facility] Blood specimen (specimen) BLOOD SPECIMEN / Unknown 03/05/2017 12:20 EDT 03/05/2017 18:54 EDT Roxanna Hannah MD CHEMISTRY & BLOOD GAS OR DERABLES Final Result Performing Organization Address [facility] Co de Phone Number [facility] [address] [place] [address] * HEMOGLOBIN A1C (03/05/2017 12:20 EDT) Pathologist [facility] Hemoglobin A1C 6.0 % 03/06/2017 9:46 EDT [facility] Comment: Reference Range: <5.7% Normal 5.7-6.4% Increased risk for diabetes =>6.5% Diagnostic for diabetes (if confirmed) The A1c goal for non adults in general is <7%. The A1c goal for selected patients may be significantly lower than 7% if this can be achieved without significant hypoglycemia or other adverse effects of treatment. Est Avg Glucose 126 mg/dl 7 9:46 EDT [facility] Comment: eAG represents the A1c result expressed as average glucose in mg/dl. Blood specimen (specimen) BLOOD SPECIMEN / Unknown 03/05/2017 12:20 EDT 03/05/2017 18:54 EDT Roxanna Hannah MD CHEMISTRY & BLOOD GAS OR DERABLES Final Result Performing Organization Address [facility] Co de Phone Number [facility] [address] [place] [address] * LIPID PROFILE (INCLUDES CHOLESTEROL, TRIGLYCERIDES, HDL, LDL) (03/05/2017 12:20 EDT) Cholesterol 137 mg/dl 03/05/2017 19:29 EDT [facility] Comment: Desirable:<200 Borderline High:200-239 High:>yq=675 Triglycerides 104 mg/dl 03/05/2017 19:29 [facility] Comment: Normal:<150 Borderline High:150-199 High:200-499 Very High:>ig=811 HDL 39 mg/dl 03/05/2017 19:29 [facility] Comment: Low:<40 Normal:40-60 Desirable: >60 LDL, Calculated 77 mg/dl 7 19:29 [facility] Comment: Optimal:<100 Near Optimal:100-129 Borderline High:130-159 High:160-189 Very High:>rj=237 Chol/HDL Ratio 3.5 03/05/2017 19:29 [facility] Fasting? Unknown 03/05/2017 18:55 [facility] Non HDL Cholesterol 98 mg/dl 03/05/2017 19:29 [facility] Comment: Desirable:<130 Borderline:130-159 High: 160-189 Very High: >ee=337 Blood specimen (specimen) BLOOD SPECIMEN / Unknown 03/05/2017 12:20 EDT 03/05/2017 18:54 EDT us Roxanna Hannah MD CHEMISTRY & BLOOD GAS OR DERABLES Final Result [facility] [address] [place] [address] * (ABNORMAL) BASIC METABOLIC PANEL (03/05/2017 12:20 EDT) Sodium 148(H) 136 - 145 mEq/L 03/05/2017 19:29 [facility] Potassium 4.6 3.5 - 5.0 mEq/L 03/05/2017 19:29 [facility] Chloride 105 96 - 110 mEq/L 03/05/2017 19:29 [facility] CO2 30 22 - 32 mEq/L 03/05/2017 19:29 [facility] BUN 25 10 - 26 mg/dl 03/05/2017 19:29 [facility] Creatinine 1.04 0.66 - 1.25 mg/dl 03/05/2017 19:29 EDT [facility] GFR, Calculated 78 >60 ml/min/1.7 3m2 03/05/2017 19:29 EDT [facility] Comment: eGFR calculated using CKD-EPI equation for non Americans. Multiply eGFR by 1.16 for Americans. Calcium 10.0 8.5 - 10.5 mg/dl 03/05/2017 19:29 EDT [facility] Calculated Calcium 9.4 8.5 - 10.5 mg/dl 03/05/2017 19:29 EDT [facility] Glucose, Serum 83 70 - 100 mg/dl 03/05/2017 19:29 EDT [facility] Fasting? Unknown 03/05/2017 18:55 EDT [facility] Blood specimen (specimen) BLOOD SPECIMEN / Unknown 03/05/2017 12:20 EDT 03/05/2017 18:54 EDT Roxanna Hannah MD CHEMISTRY & BLOOD GAS OR DERABLES Final Result [facility] [address] [place] [address] documented in this encounter Visit Diagnoses Diagnosis Benign essential HTN- Primary Essential hypertension, benign Need for shingles vaccine Need for prophylactic vaccination and inoculation against other viral diseases Seizure disorder (HCC-CMS) Unspecified epilepsy without mention of intractable epilepsy Chest wall pain Painful respiration Recurrent pneumonia Pneumonia, organism unspecified Screening cholesterol level Screening for lipoid disorders IGT (impaired glucose tolerance) Impaired glucose tolerance test Screening for HIV (human immunodeficiency virus) Special screening examination for other specified viral diseases Need for hepatitis C screening test Special screening examination for other specified viral diseases documented in this encounter Discontinued Medications Medication Sig Discontinue Reason Start Date End Da te GLUC/ROSIBEL-MSM#1/VIT C/ZAYNAB/BOR ([id number] COMPLEX ORAL) Take 1 Tab by mouth daily. Reported on 03/05/2017 Patient Stopped Taking 03/05/2017 hydrochlorothiazide (MICROZIDE) 12.5 mg capsule TAKE 1 CAPSULE DAILY 04/10/2016 03/05/2017 divalproex (DEPAKOTE) 500 mg delayed release tablet TAKE 3 TABLETS AT BEDTIME Reorder 12/27/2016 03/05/2017 simvastatin (ZOCOR) 40 mg tablet TAKE 1 TABLET EVERY EVENING Reorder 04/10/2016 03/05/2017 documented as of this encounter Historical Medications * This list may reflect changes made after this encounter. Cod Liver Oil oil Take 1 Cap by mouth daily. 04/29/2018 added in this encounter Orders Immunization/Injection Count Last Ordered Date First Ordered Date SHINGLES (HERPES ZOSTER) SQ 1 03/05/2017 documented in this encounter Care Teams Referral Agent Relationship Specialty Start Date End Date Roxanna Hannah MD [address] [place] [phone] PCP - General 03/28/09 05/31/20 documented as of this encounter
--- OUTSIDE RECORDS SUMMARY | 2024-10-06 13:49 | XMS_ITS | Encounter Summary ---
Author Organization [facility] Address [address] [place] [address] Care Team Providers Care Beef Cattle Farm Manager Name Role Phone Roxanna Hannah MD Primary Care Provider + Reason for Visit * Reason Onset Date Comments CT Scan 04/10/2017 Encounter Details Date Type Department Care Team (Late st Contact Info) Description 04/10/[address] [phone] Roxanna Hannah MD [address] [place] [phone] CT Scan Social History Tobacco Use Types [...] * Telephone Encounter - Isaura Ray - 04/10/2017 1421 EDT Patient called back, he activated his insurance and was transferred to Pre Reg. * Telephone Encounter - Hallie Parisi - 04/10/2017 1409 EDT Patient did not have his CT Chest done on March 13 because his insurance was not in place at that time. He said he would call back when ready to schedule but we have not heard from him. I just spoke with the patient and he does have insurance now but needs to make a phone call to activate. Once he does this he will call back and we may transfer him to Pre-Reg at [phone] to give them his insurance info. I will then do the pre-cert and have the appointment scheduled. documented in this encounter Plan of Treatment [...] on filedocumented in this encounter Care Teams Beef Cattle Farm Manager Relationship Specialty Start Date End Date Roxanna Hannah MD [address] [place] [phone] PCP - General 03/28/09 05/31/20 documented as of this encounter
--- OUTSIDE RECORDS SUMMARY | 2024-10-06 13:49 | XMS_ITS | Encounter Summary ---
Author Organization [facility] Address [address] [place] [address] Care Team Providers Care Chief Media Officer Name Role Phone Roxanna Hannah MD Primary Care Provider + Reason for Visit * Reason Onset Date Comments Shortness of Breath 05/22/2016 Encounter Details Date Type Department Care Team (Late st Contact Info) Description 05/22/[address] [address] Maggie Andrade LPN Shortness of Breath Social History Tobacco Use Types Packs/Day Years [...] Telephone Encounter - Maggie Andrade LPN - 05/22/2016 1740 EDT Pt. Was seen at [facility] on 05/20/16 for SOB. Pt. Was diagnosed with bronchitis. Please ask pt. If he needs a fu jorden't. documented in this encounter Plan of [...] on filedocumented in this encounter Care Teams Chief Media Officer Relationship Specialty Start Date End Date Roxanna Hannah MD [address] [place] [phone] PCP - General 03/28/09 05/31/20 documented as of this encounter
--- OUTSIDE RECORDS SUMMARY | 2024-10-06 13:49 | XMS_ITS | Encounter Summary ---
Author Organization [facility] Address [address] [place] [address] Care Team Providers Care Diesel Engine Operator Name Role Phone Roxanna Hannah MD Primary Care Provider + Reason for Visit * Reason Comments Hypertension Hyperlipidemia Seizures Encounter Details Date Type Department Care Team (Late st Contact Info) Description 04/10/2016 14:45 EDT Office Visit [facility] [address] [address] Roxanna Hannah MD [address] [place] [address] [phone] Essential hypertension with goal blood pressure less than 130/85 (Primary Dx); Other hyperlipidemia; Impaired glucose tolerance; Seizure disorder ([facility]) Social History Tobacco Use Types Packs/Day [...] Sign Reading Time Taken Comments Blood Pressure 130/86 04/10/2016 1448 EDT Pulse 76 04/10/2016 1448 EDT Temperature - - Respiratory Rate - - Oxygen Saturation - - Inhaled Oxygen Concentration - - Weight 107 kg (236 lb) 04/10/2016 1448 EDT Height 174.6 cm (5' 8.75) 04/10/2016 1448 EDT Body Mass Index 35.11 04/10/2016 1448 EDT documented in this encounter [...] Author No 04/10/2016 14:49 EDT Vaishali Rocha ramila documented in this encounter Ordered Prescriptions Prescription Sig Dispense Quantity Refills Last Filled Start Date End Date simvastatin (ZOCOR) 40 mg tablet TAKE 1 TABLET EVERY EVENING 90 Tab 3 04/10/2016 7 hydrochlorothiazid e (MICROZIDE) 12.5 mg capsule TAKE 1 CAPSULE DAILY 90 Cap 3 04/10/2016 7 divalproex (DEPAKOTE) 500 mg delayed release tablet TAKE 3 TABLETS AT BEDTIME 270 Tab 3 04/10/2016 7 documented in this encounter Progress Notes * Roxanna Hannah MD - 04/10/2016 1630 EDT Subjective: Patient ID: Mario Curry is an 60 y.o. male. Chief Complaint Patient presents with ??? Hypertension ??? Hyperlipidemia ??? Seizures Hypertension This is a chronic problem. The current episode started more than 1 year ago. The problem is controlled. Pertinent negatives include no orthopnea or peripheral edema. There are no associated agents tohypertension. Risk factors for coronary artery disease include dyslipidemia, male gender and obesity. Past treatments include diuretics and lifestyle changes. The current treatment provides significant improvement. There are no compliance problems. There is no history of kidney disease, CAD/[place] or athyroid problem. There is no history of chronic renal disease or sleep apnea. Hyperlipidemia This is a chronic problem. The current episode started more than 1 year ago. The problem is controlled. Exacerbating diseases include obesity. He has no history of chronic renal disease or diabetes (IGT). There are no known factors aggravating his hyperlipidemia. Current antihyperlipidemic treatment includes statins. The current treatment provides significant improvement of lipids. There are no compliance problems. Risk factors for coronary artery disease include dyslipidemia, hypertension, male sex and obesity (IGT). Seizure D/O - no recent seizures, on Depakote IGT - HGA1C 5.9 Patient Active Problem List Diagnosis ??? Routine [...] 08/05/2002 ??? Routine general medical examination at [facility] care facility 08/05/2002 ??? GERD (gastroesophageal reflux [...] daily. 16 g 2 ??? GLUC/ROSIBEL-MSM#1/VIT C/ZAYNAB/BOR ([id number] COMPLEX ORAL) Take 1 Tab by mouth daily ??? MULTIVITAMINS (MULTI-VITAMIN ORAL) Take 1 Tab [...] 2-3 drinks per week Review of Systems Cardiovascular: Negative for orthopnea. - See HPI Objective: BP 130/86 mmHg Pulse 76 Ht 174.6 cm (68.75) Wt 107.049 kg (236 lb) BMI 35.12 kg/m2 Physical Exam Constitutional: He appears well-developed and well-nourished. No distress. HENT: Head: Normocephalic and atraumatic. Eyes: Conjunctivae are normal. No scleral icterus. Neck: Neck supple. Neurological: He is alert. Coordination normal. Skin: No erythema. No pallor. Psychiatric: He has a normal mood and affect. Assessment: Plan: Mario was seen today for hypertension, hyperlipidemia and seizures. Diagnoses and all orders for this visit: Essential hypertension with goal blood pressure less than 130/85 Well controlled on HCTZ Will hopefully work more on wt loss Other hyperlipidemia Controlled on Zocor 40 mg Impaired glucose tolerance HgA1C 5.9 Seizure disorder Stable on Depakote 1500 mg nightly Other orders - divalproex (DEPAKOTE) 500 mg delayed release tablet; TAKE 3 TABLETS AT BEDTIME - hydrochlorothiazide (MICROZIDE) 12.5 mg capsule; TAKE 1 CAPSULE DAILY - simvastatin (ZOCOR) 40 mg tablet; TAKE 1 TABLET EVERY EVENING Return in about 6 months (around 10/11/2016), or if symptoms worsen or fail to improve, for CPE. documented in this encounter Plan of Treatment [...] of this encounter Visit Diagnoses Diagnosis Essential hypertension with goal blood pressure less than 130/85- Primary Other hyperlipidemia Impaired glucose tolerance Impaired glucose tolerance test Seizure disorder ([facility]) Unspecified epilepsy without mention of intractable epilepsy documented in this encounter Discontinued Medications Medication Sig Discontinue Reason Start Date End Da te divalproex (DEPAKOTE) 500 mg delayed release tablet TAKE 3 TABLETS AT BEDTIME Reorder 02/06/2016 04/10/2016 hydrochlorothiazide (MICROZIDE) 12.5 mg capsule TAKE 1 CAPSULE DAILY Reorder 02/06/2016 04/10/2016 simvastatin (ZOCOR) 40 mg tablet TAKE 1 TABLET EVERY EVENING Reorder 03/26/2016 04/10/2016 documented as of this encounter Care Teams Diesel Engine Operator Relationship Specialty Start Date End Date Roxanna Hannah MD [address] [place] [phone] PCP - General 03/28/09 05/31/20 documented as of this encounter
--- OUTSIDE RECORDS SUMMARY | 2024-10-06 13:49 | XMS_ITS | Encounter Summary ---
Author Organization [facility] Address [address] [place] [address] Care Team Providers Care Vacuum Tester Cans Name Role Phone Roxanna Hannah MD Primary Care Provider + Reason for Visit * Reason Onset Date Comments Results 05/30/2016 Encounter Details Date Type Department Care Team (Late st Contact Info) Description 05/30/2016 Orders Only [address] [address] Maggie Andrade LPN Social History Tobacco Use [...] Pressure Hypertension 130/84(2019 8:53 EST) No Roxanna Hannha MD Being Active General Obesity Yes Roxanna [...] Barriers: None documented as of this encounter Procedures Procedure Name Priority Date/Time Associated Diagnosis Comments VITAMIN B12 Routine 05/29/2016 COMPREHENSIVE METABOLIC PANEL (CMP) Routine 05/29/2016 documented in this encounter Results * (ABNORMAL) VITAMIN B12 (05/29/2016) Pathologist [facility] Vitamin B-12, External 946(A) 239 - 931 [facility] Blood specimen (specimen) 05/29/2016 us Historical Provider CHEMISTRY & BLOOD GAS ORD ERABLES Final Result [facility] * (ABNORMAL) COMPREHENSIVE METABOLIC PANEL (CMP) (05/29/2016) GFR, Calculated, External >60 >60 [facility] Glucose, Serum, External 63(A) 70 - 100 [facility] Albumin, External 4.6 3.5 - 5.0 [facility] Total Alkaline Phosphatase, External 72 38 - 126 [facility] ALT, External 46 21 - 72 [facility] AST, External 37 17 - 59 [facility] BUN, External 24 8 - 26 [facility] Calculated Calcium, External 9.36 8.4 - 10.2 [facility] Calcium, External 9.6 8.4 - 10.2 [facility] Chloride, External 101 98 - 107 [facility] CO2, External 32(A) 22 - 30 [facility] Creatinine, External 0.93 0.66 - 1.25 [facility] Fasting?, External ? [facility] Potassium, External 5.5(A) 3.6 - 5.0 [facility] Sodium, External 147(A) 137 - 145 [facility] Total Protein, External 7.5 6.3 - 8.2 [facility] Bilirubin, Total, External 0.6 0.2 - 1.3 [facility] Blood specimen (specimen) 05/29/2016 us Historical Provider CHEMISTRY & BLOOD GAS ORD ERABLES Final Result [facility] documented in this encounter Visit Diagnoses Not on filedocumented in this encounter Care Teams Vacuum Tester Cans Relationship Specialty Start Date End Date Roxanna Hannah MD [address] [place] [phone] PCP - General 03/28/09 05/31/20 documented as of this encounter
--- OUTSIDE RECORDS SUMMARY | 2024-10-06 13:49 | XMS_ITS | Encounter Summary ---
Author Organization [facility] Address [address] [place] [address] Care Team Providers Care Post Adoption Coordinator Name Role Phone Roxanna Hannah MD Primary Care Provider + Reason for Visit * Reason Onset Date Comments Medications Refill 12/27/2016 Encounter Details Date Type Department Care Team (Late st Contact Info) Description 12/27/2016 Refill [facility] [address] [address] Roxanna Hannah MD [address] [place] [address] [phone] Medications Refill Social History Tobacco Use Types [...] release tablet TAKE 3 TABLETS AT BEDTIME 42 Tab 12/27/2016 7 documented in this encounter Miscellaneous Notes * Telephone Encounter - Heydi Adams - 12/27/2016 1405 EST Patient is returning a call to our office to let Dr. Cleaning know that he does have a prescription coming from [facility]. * Telephone Encounter - Maritza Cleaning RN - 12/27/2016 1228 EST LM for pt to call office back regarding Depakote. A 2 week supply of Depak[facility]. Does he have an Rx of Depakote coming from [facility] or do we need to send a request to them as well. * Telephone Encounter - Maritza Cleaning RN - 12/27/2016 1202 EST Last Refill Date: 04/10/16 Last Visit Date with Ordering Provider: 06/22/16 Next Visit Date as it relates to the requested medication: No. Last Related Labs Date: 04/03/16 Rx approved Maritza Cleaning RN 12/27/2016 12:02 * Telephone Encounter - Heydi Adams - 12/27/2016 0917 EST Medication(s) Requested: Depakote 04/10/16 #[id number] refills (sent to [facility]) Preferred [facility]acy: [facility] Is patient out of medication? Yes - He is waiting for his [facility] mail order prescription. Canwe send in a 2 week supply to [facility] ? Last OV: 10/24/16 Next OV: None Heydi Adams 12/27/2016 9:17 documented in this encounter Plan of Treatment [...] tablet TAKE 3 TABLETS AT BEDTIME Reorder 04/10/2016 12/27/2016 documented as of this encounter Care Teams Post Adoption Coordinator Relationship Specialty Start Date End Date Roxanna Hannah MD [address] [place] [address] [phone] PCP - General 03/28/09 05/31/20 documented as of this encounter
--- OUTSIDE RECORDS SUMMARY | 2024-10-06 13:49 | XMS_ITS | Encounter Summary ---
Author Organization [facility] Address [address] [place] [address] Care Team Providers Care Coremaker Name Role Phone Roxanna Hannah MD Primary Care Provider + Reason for Referral * Radiology Services (Routine) - Closed Specialty Diagnoses / Procedures Referred By Contac t Referred To Contact Diagnoses Pneumonia of right upper lobe due to infectious organism Procedures CHEST PA AND LATERAL Roxanna Hannah MD Phone: tel: fax: Referral ID Status Reason Start Date Expiration Date Visits Re quested Visits Authorized [id number] Closed 10/24/2016 1 1 Reason for Visit * Reason Comments Follow-up urgent care follow u p/ pneumonia. pt also states that he has a spot on left lung that has grown and he would like to discuss results Encounter Details Date Type Department Care Team (Late st Contact Info) Description 10/24/2016 12:30 EST Office Visit [facility] [place] - [address] [address] Roxanna Hannah MD [address] [place] [address] [phone] Pneumonia of right upper lobe due to infectious organism (CMS-HCC) (Primary Dx); Flu vaccine need Discharge Disposition: Auto Discharge Social History Tobacco [...] Sign Reading Time Taken Comments Blood Pressure 122/84 10/24/2016 1228 EST Pulse 88 10/24/2016 1228 EST Temperature - - Respiratory Rate - - Oxygen Saturation - - Inhaled Oxygen Concentration - - Weight 111.1 kg (245 lb) 10/24/2016 1228 EST Height 174.6 cm (5' 8.75) 10/24/2016 1228 EST Body Mass Index 36.44 10/24/2016 1228 EST [...] EST Vaishali Rocha documented in this encounter Discharge Disposition Disposition Code Departure Means Destination Auto Discharge documented in this encounter Progress Notes * Maggie Andrade LPN - 10/24/2016 1230 EST Flu vaccine adm'd. * Roxanna Hannah MD - 10/24/2016 1230 EST Subjective: Patient ID: Mario Curry is an 61 y.o. male. Chief Complaint Patient presents with ??? Follow-up urgent care follow up/ pneumonia. pt also states that he has a spot on left lung that has grown andhe would like to discuss results HPI Here to f/u from recent [facility] UC visit Was having cough and incresaed breathing issues No fevers, chest pain, sweats or appetite changes Some fatigue, feeling run down CXR showed propbale RUL infiltrate but nodule could not be excluded A repeat CXR in 2-3 weeks after ABX tx was rec He completed a [employer] Feels better UC note and imaging reviewed He mentions a previous pneumonia in same lung location yrs back Patient Active Problem List Diagnosis ??? Routine [...] 30-34.9 Past Medical History Diagnosis Date ??? Abnormal glucose tolerance test [...] Reported on 10/24/2016) 1 Tube 0 ??? divalproex (DEPAKOTE) 500 mg delayed release tablet TAKE 3 TABLETS AT BEDTIME 270 Tab 3 ??? DOCOSAHEXANOIC ACID/EPA (FISH OIL ORAL) Take 1 Capsule by mouth daily ??? fluticasone (FLONASE) 50 mcg/actuation nasal spray Instill 2 Sprays into both nostrils daily. 16 g 2 ??? GLUC/ROSIBEL-MSM#1/VIT C/ZAYNAB/BOR ([id number] COMPLEX ORAL) Take 1 Tab by mouth daily. Reported on 10/24/2016 ??? hydrochlorothiazide (MICROZIDE) 12.5 mg capsule TAKE [...] per week ROS - See HPI Objective: Visit Vitals ??? BP 122/84 ??? Pulse 88 ??? Ht 174.6 cm (68.75) ??? Wt (!) 111.1 kg (245 lb) ??? BMI 36.44 kg/m2 Physical Exam Constitutional: He appears well-developed and well-nourished. No distress. HENT: Mouth/Throat: Mucous membranes are moist. Oropharynx is clear. Eyes: Conjunctivae are normal. No scleral icterus. Neck: Neck supple. Cardiovascular: Normal rate, regular rhythm and normal heart sounds. Pulmonary/Chest: Effort normal and breath sounds normal. He has no wheezes. He has no rhonchi. He has no rales. Musculoskeletal: He exhibits no edema. Lymphadenopathy: He has no cervical adenopathy. Neurological: He is alert. Coordination normal. Skin: No erythema. No pallor. Psychiatric: He has a normal mood and affect. Assessment: Plan: Mario was seen today for follow-up. Diagnoses and all orders for this visit: Pneumonia of right upper lobe due to infectious organism Symptomatically better Will have him get repeat CXR as per RADS REC in another 3-4 weeks to give time for lungs to heal Might need advanced imaging with CT if RUL nodule rather than previous infiltrate - CHEST PA AND LATERAL Flu vaccine need - [id number] - Influenza Vaccine =>3YO Quad Preservative Free IM F/u prn documented in this encounter Plan of Treatment Scheduled Orders Name Type Priority Associated Diagnoses Orde r Schedule CHEST PA AND LATERAL Imaging Routine Pneumonia of right upper lobe due to infectious organism ([facility]) Ordered: 10/24/2016 documented as of this encounter Goals Goal [...] as of this encounter Visit Diagnoses Diagnosis Pneumonia of right upper lobe due to infectious organism- Primary Flu vaccine need Need for prophylactic vaccination and inoculation against influenza documented in this encounter Discontinued Medications Medication Sig Discontinue Reason Start Date End Da te doxycycline (VIBRA-TABS) 100 mg tablet Take 1 Tab by mouth 2 times daily. 07/02/2016 10/24/2016 cephALEXin (KEFLEX) 500 mg capsule Take 1 Cap by mouth 4 times daily. 07/02/2016 10/24/2016 documented as of this encounter Orders Immunization/Injection Count Last Ordered Date First Ordered Date INFLUENZA VACCINE =>3YO QUAD PRESERVATIVE FREE IM 1 10/24/2016 documented in this encounter Care Teams Coremaker Relationship Specialty Start Date End Date Roxanna Hannah MD [address] [place] [phone] PCP - General 03/28/09 05/31/20 documented as of this encounter
--- OUTSIDE RECORDS SUMMARY | 2024-10-06 13:49 | XMS_ITS | Encounter Summary ---
Author Organization [facility] Address [address] [place] [address] Care Team Providers Care Decorator Consultant Name Role Phone Roxanna Hannah MD Primary Care Provider + Reason for Visit * Reason Onset Date Comments Post-ED Follow Up 06/03/2015 [facility] 06/03/15 Encounter Details Date Type Department Care Team (Late st Contact Info) Description 06/08/[address] [id number] Roxanna Hannah MD [address] [place] [address] [phone] Post-ED Follow Up ([facility] 06/03/15) Social History Tobacco Use Types Packs/Day Years [...] encounter Miscellaneous Notes * Telephone Encounter - Raffi Gracia - 06/08/2015 1319 EDT Care and concern call made. Unable to leave message as VM does not identify name. Mario was seen at [facility] on 06/03/15 for balance issues. Calling to see how he is feeling and if he needs a follow up appt in the office. Raffi Gracia 06/08/2015 13:20 documented in this encounter Plan of Treatment [...] on filedocumented in this encounter Care Teams Decorator Consultant Relationship Specialty Start Date End Date Roxanna Hannah MD [address] [place] [phone] PCP - General 03/28/09 05/31/20 documented as of this encounter
--- OUTSIDE RECORDS SUMMARY | 2024-10-06 13:49 | XMS_ITS | Encounter Summary ---
Author Organization [facility] Address [address] [place] [address] Care Team Providers Care Child Monitor Name Role Phone Roxanna Hannah MD Primary Care Provider + Reason for Visit * Reason Comments MEDICATION CHECK Encounter Details Date Type Department Care Team (Late st Contact Info) Description 12/27/2014 11:30 EST Office [place] [facility] [address] [place] [address] Roxanna Hannah MD [address] [place] [address] [phone] Seizure disorder ([facility]) (Primary Dx); Hyperlipidemia; Essential hypertension; Impaired glucose tolerance Social History Tobacco Use Types Packs/Day Years [...] Sign Reading Time Taken Comments Blood Pressure 132/88 12/27/2014 1134 EST Pulse 64 12/27/2014 1134 EST Temperature 36.5 ??C (97.7 ??F) 12/27/2014 1134 EST Respiratory Rate - - Oxygen Saturation - - Inhaled Oxygen Concentration - - Weight 99.8 kg (220 lb) 12/27/2014 1134 EST with boots Height - - Body Mass Index 32.73 03/04/2014 1406 EDT documented in this encounter Mental Status * Because of [...] mg tablet TAKE 1 TABLET EVERY EVENING. 90 Tab 3 12/27/2014 6 hydrochlorothiazid e (MICROZIDE) 12.5 mg capsule TAKE 1 CAPSULE DAILY. 90 Cap 3 12/27/2014 6 documented in this encounter Progress Notes * Raffi Gracia - 12/27/2014 1233 EST Right arm Venipuncture performed for A1c, Lipids, CMP Per orders of Dr. Hannah Diagnosis of impaired glucose tolerance 790.22, HLD 272.4, seizure disorder 345.90 and essential HTN 401.9 Raffi Gracia 12/27/2014 12:34 * Roxanna Hannah MD - 12/27/2014 1157 EST Subjective: Patient ID: Mario Curry is an 59 y.o. male. Chief Complaint Patient presents with ??? MEDICATION CHECK Hypertension This is a chronic problem. The current episode started more than 1 year ago. The problem is controlled. Pertinent negatives include no chest pain, orthopnea, palpitations, peripheral edema, shortnessof breath or sweats. There are no associated agents to hypertension. Risk factors for coronary artery disease include obesity and dyslipidemia (IGT). Past treatments include lifestyle changes and diuretics. The current treatment provides significant improvement. There are no compliance problems. There is no history of kidney disease, CAD/OH or a thyroid problem. There is no history of chronic renal disease or sleep apnea. Hyperlipidemia This is a chronic problem. Exacerbating diseases include obesity. He has no history of chronic renal disease or diabetes. There are no known factors aggravating his hyperlipidemia. Pertinent negatives include no chest pain, focal sensory loss, focal weakness, myalgias or shortness of breath. Current antihyperlipidemic treatment includes statins and exercise. The current treatment provides significant improvement of lipids. There are no compliance problems. Risk factors for coronary artery disease include hypertension, male sex, obesity and dyslipidemia (IGT). No recent seizures Depakote level in JUL therapeutic IGT - last HGA1C in 11/06 5.8 Has lost 20+ lbs since February due to increase exercise while working on [employer]! Patient Active Problem List Diagnosis ??? Routine history and physical examination of adult ??? Seizure disorder ??? Gastroesophageal reflux disease ??? Essential Hypertension ??? Hyperlipidemia ??? Allergic Rhinitis ??? Abnormal Glucose Tolerance Test ??? Male erectile disorder ??? Atypical chest [...] release tablet TAKE 3 TABLETS AT BEDTIME. 270 Tab 3 ??? fluticasone (FLONASE) 50 mcg/actuation nasal spray [...] shortness of breath. Cardiovascular: Negative for chest pain, palpitations and orthopnea. Musculoskeletal: Negative for myalgias. Neurological: Negative for focal weakness. - See HPI Objective: BP 132/88 Pulse 64 Temp(Src) 36.5 ??C (97.7 ??F) (Oral) Wt 99.791 kg (220 lb) BMI 32.73 kg/m2 Physical Exam Constitutional: He appears well-developed and well-nourished. No distress. HENT: Head: Atraumatic. Eyes: Conjunctivae are normal. Neurological: He is alert. Psychiatric: He has a normal mood and affect. Assessment: Plan: Mario was seen today for medication check. 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 - simvastatin (ZOCOR) 40 mg tablet; TAKE 1 TABLET EVERY EVENING. Return in about 6 months (around 06/26/2015), or if symptoms worsen or fail to [...] Diagnosis Comments COMPREHENSIVE METABOLIC PANEL (CMP) Routine 12/27/2014 12:00 EST Seizure disorder ([facility]) Essential hypertension HEMOGLOBIN A1C Routine 12/27/2014 11:48 EST Impaired glucose tolerance LIPID PROFILE (INCLUDES CHOLESTEROL, TRIGLYCERIDES, HDL, LDL) Routine 12/27/2014 11:48 EST Hyperlipidemia documented in this encounter Results * COMPREHENSIVE METABOLIC PANEL (CMP) (12/27/2014 12:00 EST) Potassium 4.8 3.5 - 5.0 mEq/L 12/27/2014 19:13 [facility] Sodium 142 136 - 145 mEq/L 12/27/2014 19:13 [facility] Chloride 102 96 - 110 mEq/L 12/27/2014 19:13 [facility] CO2 31 24 - 32 mEq/L 12/27/2014 19:13 [facility] Total Alkaline Phosphatase 65 38 - 126 U/L 12/27/2014 19:13 [facility] Bilirubin, Total <0.5 <1.4 mg/dl 12/27/19 15 19:13 [facility] AST 25 15 - 46 U/L 12/27/2014 19:13 [facility] ALT 26 21 - 72 U/L 12/27/2014 19:13 [facility] Albumin 4.2 3.4 - 4.9 g/dl 12/27/2014 19:13 [facility] Total Protein 6.9 6.5 - 8.3 g/dl 12/27/2014 19:13 [facility] Creatinine 0.84 0.66 - 1.25 mg/dl 12/27/2014 19:13 [facility] GFR, Calculated >60 >60 ml/min/1.7 3m2 12/27/2014 19:13 [facility] BUN 23 10 - 26 mg/dl 12/27/2014 19:13 [facility] Calcium 9.7 8.5 - 10.5 mg/dl 12/27/2014 19:13 [facility] Calculated Calcium 9.9 8.5 - 10.5 mg/dl 12/27/2014 19:13 [facility] Glucose, Serum 89 70 - 100 mg/dl 12/27/2014 19:13 [facility] Fasting? Unknown 12/27/2014 18:57 [facility] Blood specimen (specimen) BLOOD SPECIMEN / Unknown 12/27/2014 12:00 EST 12/27/2014 18:56 EST us Roxanna Hannah MD CHEMISTRY & BLOOD GAS OR DERABLES Final Result [facility] [address] [place] [address] * LIPID PROFILE (INCLUDES CHOLESTEROL, TRIGLYCERIDES, HDL, LDL) (12/27/2014 11:48 EST) Cholesterol 155 mg/dl 12/27/2014 19:11 [facility] Comment: Desirable:<200 Borderline High:200-239 High:>jf=660 Triglycerides 81 mg/dl 12/27/2014 19:11 [facility] Comment: Normal:<150 Borderline High:150-199 High:200-499 Very High:>tr=888 HDL 42 mg/dl 12/27/2014 19:11 [facility] Comment: Low:<40 Normal:40-60 Desirable: >60 LDL, Calculated 97 mg/dl 5 19:11 [facility] Comment: Optimal:<100 Near Optimal:100-129 Borderline High:130-159 High:160-189 Very High:>yz=256 Chol/HDL Ratio 3.7 12/27/2014 19:11 [facility] Fasting? Unknown 12/27/2014 18:56 [facility] Non HDL Cholesterol 113 mg/dl 12/27/2014 19:11 [facility] Comment: Desirable:<130 Borderline:130-159 High: 160-189 Very High: >cj=162 Blood specimen (specimen) BLOOD SPECIMEN / Unknown 12/27/2014 11:48 EST 12/27/2014 18:56 EST Roxanna Hannah MD CHEMISTRY & BLOOD GAS OR DERABLES Final Result Performing Organization Address [facility] Co de Phone Number [facility] [address] [place] [address] * HEMOGLOBIN A1C (12/27/2014 11:48 EST) Hemoglobin A1C 5.7 % 12/28/2014 10:20 [facility] Comment: Reference Range: <5.7% Normal 5.7-6.4% Increased risk for diabetes =>6.5% Diagnostic for diabetes (if confirmed) The A1c goal for non adults in general is <7%. The A1c goal for selected patients may be significantly lower than 7% if this can be achieved without significant hypoglycemia or other adverse effects of treatment. Est Avg Glucose 117 mg/dl 5 10:20 [facility] Comment: eAG represents the A1c result expressed as average glucose in mg/dl. Blood specimen (specimen) BLOOD SPECIMEN / Unknown 12/27/2014 11:48 EST 12/27/2014 18:56 EST Roxanna Hannah MD CHEMISTRY & BLOOD GAS OR DERABLES Final Result Performing Organization Address [facility] Co de Phone Number [facility] [address] [place] [address] documented in this encounter Visit Diagnoses Diagnosis Seizure disorder ([facility])- Primary Unspecified epilepsy without mention of intractable epilepsy Hyperlipidemia Other and unspecified hyperlipidemia Essential hypertension Unspecified essential hypertension Impaired glucose tolerance Impaired glucose tolerance test documented in this encounter Discontinued Medications Medication Sig Discontinue Reason Start Date End Da te HYDROcodone-acetaminophe n (NORCO) 5-325 mg tablet Take 1 Tab by mouth every 6 hours as needed for Pain. 03/10/2014 12/27/2014 hydrochlorothiazide (MICROZIDE) 12.5 mg capsule TAKE 1 CAPSULE DAILY. Reorder 12/21/2014 12/27/2014 simvastatin (ZOCOR) 40 mg tablet TAKE 1 TABLET EVERY EVENING. Reorder 12/21/2014 12/27/2014 documented as of this encounter Care Teams Child Monitor Relationship Specialty Start Date End Date Roxanna Hannah MD [address] [place] [phone] PCP - General 03/28/09 05/31/20 documented as of this encounter
--- OUTSIDE RECORDS SUMMARY | 2024-10-06 13:49 | XMS_ITS | Encounter Summary ---
Author Organization [facility] Address [address] [place] [address] Care Team Providers Care It Security Administrator Name Role Phone Roxanna Hannah MD Primary Care Provider + Reason for Visit * Reason Onset Date Comments Medications Refill 09/06/2015 Encounter Details Date Type Department Care Team (Late st Contact Info) Description 09/06/2015 Refill [facility] [address] [address] Roxanna Hannah MD [address] [place] [address] [phone] Medications Refill Social History Tobacco Use Types [...] Telephone Encounter - Michaela Moyer RN - 09/06/2015 0391 EDT Prescription for depakote was sent and received by [facility] on 09/05/15. * Telephone Encounter - Heydi Adams - 09/06/2015 3212 EDT Medication(s) Requested: Depakote Pharmacy: [facility] mail order Last Refill Date: 09/05/15 #270 1 refill Last Visit Date: 12/27/14 Next Visit Date: Visit date not found Is patient out of medication? No Heydi Adams 09/06/2015 17:38 documented in this encounter Plan of Treatment [...] on filedocumented in this encounter Care Teams It Security Administrator Relationship Specialty Start Date End Date Roxanna Hannah MD [address] [place] [phone] PCP - General 03/28/09 05/31/20 documented as of this encounter
--- OUTSIDE RECORDS SUMMARY | 2024-10-06 13:49 | XMS_ITS | Encounter Summary ---
Author Organization [facility] Address [address] [place] [address] Care Team Providers Care Product Strategy Director Name Role Phone Roxanna Hannah MD Primary Care Provider + Reason for Referral * Radiology Services (Routine) - Closed Specialty Diagnoses / Procedures Referred By Contac t Referred To Contact Diagnoses Shoulder pain, acute, left Procedures SHOULDER 2 OR MORE VIEWS Roxanna Hannah MD Phone: tel: fax: Referral ID Status Reason Start Date Expiration Date Visits Re quested Visits Authorized [id number] Closed 10/25/2015 1 1 Reason for Visit * Reason Comments Shoulder Pain Left shoulder pain. Did heavy lifting this week. Encounter Details Date Type Department Care Team (Late st Contact Info) Description 10/25/2015 16:45 EST Office Visit [facility] [address] [address] Roxanna Hannah MD [address] [place] [phone] Shoulder pain, acute, left (Primary Dx) Social History Tobacco Use Types [...] Sign Reading Time Taken Comments Blood Pressure 136/82 10/25/2015 1657 EST Pulse 72 10/25/2015 1657 EST Temperature - - Respiratory Rate - - Oxygen Saturation - - Inhaled Oxygen Concentration - - Weight 104.8 kg (231 lb) 10/25/2015 1657 EST wit h shoes Height 174.6 cm (5' 8.75) 10/25/2015 1657 EST Body Mass Index 34.36 10/25/2015 1657 EST documented in this encounter Functional Status [...] Progress Notes * Roxanna Hannah MD - 10/28/2015 0450 EST Subjective: Patient ID: Mario Curry is an 60 y.o. male. Chief Complaint Patient presents with ??? Shoulder Pain Left shoulder pain. Did heavy lifting this week. HPI Here for acute visit Left shoulder pain Is now about 3 yrs s/p total shoulder replacement with Dr. Lorenzo He notes he is very hard on shoulder, significant work related heavy lifting, shoveling etc No redness or swelling Able to move LUE and shoulder in all directions, just an ache No radiation, new hand numbness or weakness No pleuritic CP, chest discomfort, SOB No leg swelling No abd pain No GERD Patient Active Problem List Diagnosis ??? Routine [...] 3 tablets at bedtime 270 Tab 1 ??? fluticasone (FLONASE) 50 mcg/actuation nasal spray Instill 2 Sprays into both nostrils daily. 16 g 2 ??? hydrochlorothiazide (MICROZIDE) 12.5 mg capsule TAKE 1 CAPSULE DAILY. 90 Cap 3 ??? MULTIVITAMINS (MULTI-VITAMIN ORAL) Take 1 Tab by mouth daily. ??? omeprazole (PRILOSEC) 20 mg capsule TAKE 1 CAPSULE DAILY 90 Cap 3 ??? simvastatin (ZOCOR) 40 mg tablet TAKE 1 TABLET EVERY EVENING. 90 Tab 3 No current facility-administered medications on file prior to visit. Allergies Allergen Reactions ??? Tegretol [Carbamazepine] Rash Social History Substance Use Topics ??? Smoking status: Never Smoker ??? Smokeless tobacco: Never Used ??? Alcohol Use: Yes Comment: 2-3 drinks per week ROS - See HPI Objective: BP 136/82 mmHg Pulse 72 Ht 174.6 cm (68.75) Wt 104.781 kg (231 lb) BMI 34.37 kg/m2 Physical Exam Constitutional: He appears well-developed. No distress. HENT: Head: Normocephalic and atraumatic. Eyes: Conjunctivae are normal. No scleral icterus. Neck: Neck supple. Cardiovascular: Normal rate and regular rhythm. No murmur heard. Pulmonary/Chest: Effort normal and breath sounds normal. No respiratory distress. He has no wheezes. He has no rales. Musculoskeletal: Normal range of motion. He exhibits no edema. Left shoulder: He exhibits tenderness (very mild anteriorly but no in AC joint). He exhibits normalrange of motion, no bony tenderness, no swelling, no effusion, no deformity, no spasm and normal strength. Lymphadenopathy: He has no cervical adenopathy. Neurological: He is alert. Skin: No rash noted. No erythema. Psychiatric: He has a normal mood and affect. Assessment: Plan: Mario was seen today for shoulder pain. Diagnoses and associated orders for this visit: Shoulder pain, acute, left More MSK than GI, PULM or cardiac Doubt hardware slipping or acute bony process Will go to [facility] for XRAY in next few days Heat, stretches F/u prn - SHOULDER 2 OR MORE VIEWS Other Orders - DOCOSAHEXANOIC ACID/EPA (FISH OIL ORAL); Take 1 Capsule by mouth daily - GLUC/ROSIBEL-MSM#1/VIT C/ZAYNAB/BOR (RYRWZLEORTR-HWAOC-DKE COMPLEX ORAL); Take 1 Tab by mouth daily Return if symptoms worsen or fail to improve. documented in this encounter Plan of Treatment Scheduled Orders Name Type Priority Associated Diagnoses Orde r Schedule SHOULDER 2 OR MORE VIEWS Imaging Routine Shoulder Pain, Acute, Left Ordered: 10/25/2015 documented as of this encounter Goals Goal [...] as of this encounter Visit Diagnoses Diagnosis Shoulder pain, acute, left- Primary documented in this encounter Historical Medications * This list may reflect changes made after this encounter. GLUC/ROSIBEL-MSM#1/ VIT C/ZAYNAB/BOR (GLUCOSAMINE-CHO ND-MSM COMPLEX ORAL) Take 1 Tab by mouth daily. Reported on 03/05/2017 03/05/2017 DOCOSAHEXANOIC ACID/EPA (FISH OIL ORAL) Take 1 Capsule by mouth daily 11/05/2023 added in this encounter Care Teams Product Strategy Director Relationship Specialty Start Date End Date Roxanna Hannah MD [address] [place] [phone] PCP - General 03/28/09 05/31/20 documented as of this encounter
--- OUTSIDE RECORDS SUMMARY | 2024-10-06 13:49 | XMS_ITS | Encounter Summary ---
Author Organization [facility] Address [address] [place] [address] Care Team Providers Care Supervisor Pumping Station Name Role Phone Roxanna Hannah MD Primary Care Provider + Reason for Visit * Reason Onset Date Comments Medications Refill 12/20/2014 Encounter Details Date Type Department Care Team (Late st Contact Info) Description 12/20/2014 Refill [facility] Medicine [address] [address] Roxanna Hannah MD [address] [place] [address] [phone] Medications Refill Social History Tobacco Use Types [...] capsule TAKE 1 CAPSULE DAILY. 90 Cap 0 12/21/2014 5 simvastatin (ZOCOR) 40 mg tablet TAKE 1 TABLET EVERY EVENING. 90 Tab 0 12/21/2014 5 documented in this encounter Miscellaneous Notes * Telephone Encounter - Jad Reid - 12/21/2014 0928 EST Last February 2014 Patient's medical record reviewed and medication order validated for accuracy. Refill request approved per Medication Refill Policy. * Telephone Encounter - Cleo Castle - 12/20/2014 1313 EST Medication(s) Requested: Simvastatin and HCTZ Pharmacy: [facility] Last Refill Date: 08/16/14 (simvastatin) and 10/14/14 (HCTZ) Last Visit Date: 10/27/13 Next Visit Date: 12/27/14 Is patient out of medication? yes Cleo Castle 12/20/2014 13:13 documented in this encounter Plan of Treatment [...] tablet TAKE 1 TABLET EVERY EVENING Reorder 08/16/2014 12/20/2014 hydrochlorothiazide (MICROZIDE) 12.5 mg capsule TAKE 1 CAPSULE DAILY Reorder 10/14/2014 12/20/2014 documented as of this encounter Care Teams Supervisor Pumping Station Relationship Specialty Start Date End Date Roxanna Hannah MD [address] [place] [phone] PCP - General 03/28/09 05/31/20 documented as of this encounter
--- OUTSIDE RECORDS SUMMARY | 2024-10-06 13:49 | XMS_ITS | Encounter Summary ---
Author Organization [facility] Address [address] [place] [address] Care Team Providers Care Steel Construction Worker Name Role Phone Roxanna Hannah MD Primary Care Provider + Reason for Visit * Reason Onset Date Comments Results 11/19/2016 Encounter Details Date Type Department Care Team (Late st Contact Info) Description 11/19/[address] [phone] Roxanna Hannah MD [address] [place] [address] [phone] Results Social History Tobacco Use Types Packs/Day [...] encounter Miscellaneous Notes * Telephone Encounter - Jacklyn Guajardo - 11/22/2016 0959 EST Pt made aware of recent CXR results. Pt verbalized understanding, no barriers noted. * Telephone Encounter - Roshan Yeh MD - 11/22/2016 0939 EST Okay to share results with patient. CXR showed resolution of previous RUL pneumonia, and no acute findings. * Telephone Encounter - Iwona Troncoso - 11/22/2016 0839 EST Patient is calling back to check status of this request. * Telephone Encounter - Isaura Ray - 11/19/2016 1603 EST [facility] faxing xray result. * Telephone Encounter - Heydi Adams - 11/19/2016 1520 EST Caller: Thanh Test Results Requested: chest x-ray Date of Test: 11/14/16 Where was test performed: [facility] documented in this encounter Plan of Treatment [...] Barriers: None BMI<30 General Obesity Not on track(02/06/2 020 8:42 EST) Yes Roxanna Hannah MD Note: Problem Solving Goal: BMI<30 Confidence level (1= Not very confident; 10 = Very confident): 8 Barriers: None documented as of this encounter Visit Diagnoses Not on filedocumented in this encounter Care Teams Steel Construction Worker Relationship Specialty Start Date End Date Roxanna Hannah MD [address] [place] [phone] PCP - General 03/28/09 05/31/20 documented as of this encounter
--- OUTSIDE RECORDS SUMMARY | 2024-10-06 13:49 | XMS_ITS | Encounter Summary ---
Author Organization [facility] Address [address] [place] [address] Care Team Providers Care Motorman/Woman Name Role Phone Roxanna Hannah MD Primary Care Provider + Reason for Visit * Reason Onset Date Comments Rash 07/02/2016 Encounter Details Date Type Department Care Team (Late st Contact Info) Description 07/02/[address] [phone] Roxanna Hannah MD [address] [place] [address] [phone] Rash Social History Tobacco Use Types Packs/Day Years [...] Refills Last Filled Start Date End Date cephALEXin (KEFLEX) 500 mg capsule Take 1 Cap by mouth 4 times daily. 28 Cap 07/02/2016 10/24/2016 doxycycline (VIBRA-TABS) 100 mg tablet Take 1 Tab by mouth 2 times daily. 14 Tab 07/02/2016 10/24/2016 documented in this encounter Miscellaneous Notes * Telephone Encounter - Iwona Troncoso - 07/03/2016 0916 EDT Patent is calling back and relayed message with no further questions. * Telephone Encounter - Vivien Cleveland LPN - 07/03/2016 0813 EDT Left message for Mr. Curry to call back * Telephone Encounter - Latesha Ochoa MD - 07/02/20162031 EDT I am glad it is clearing up. I have ordered another week of both medications at [facility]. He needs to stay out of the bright sunshine on the meds! Glad he is doing soaks and keeping it covered. Let us know if it doesn't all heal up and go away! * Telephone Encounter - Enid Godinez RN - 07/02/2016 1226 EDT Returned call to Mario who saw Dr. Ochoa for his rash on 06/27/16 (see visit note for details). Per Mario his rash is improving, reports he can see some slow healing. States he has been taking care of it and soaking it as directed. Mario is concerned that he only has 2 days left of doxycycline and 3 days left of the keflex, he's wonders if he should get more medication to be sure to really knock it out. Routed to Dr. Ochoa to advise (uses the [facility] in [place]). * Telephone Encounter - Iwona Troncoso - 07/02/2016 1136 EDT Patient is reporting slight improvement in his rash, however, is concerned he will not have enough medication. Please advise. documented in this encounter Plan of Treatment [...] 1 Tab by mouth 2 times daily. Reorder 06/27/2016 07/02/2016 cephALEXin (KEFLEX) 500 mg capsule Take 1 Cap by mouth 4 times daily. Reorder 06/27/2016 07/02/2016 documented as of this encounter Care Teams Motorman/Woman Relationship Specialty Start Date End Date Roxanna Hannah MD [address] [place] [phone] PCP - General 03/28/09 05/31/20 documented as of this encounter
--- OUTSIDE RECORDS SUMMARY | 2024-10-06 13:49 | XMS_ITS | Encounter Summary ---
Author Organization [facility] Address [address] [place] [address] Care Team Providers Care Beater Out Leveling Machine Name Role Phone Roxanna Hannah MD Primary Care Provider + Reason for Visit * Reason Onset Date Comments Prior Auth, Other (i.e. radiology, etc.) 017 Encounter Details Date Type Department Care Team (Late st Contact Info) Description 04/23/[address] [phone] Roxanna Hannah MD [address] [place] [address] [phone] Prior Auth, Other (i.e. radiology, etc.) Social [...] * Telephone Encounter - Hallie Parisi - 04/26/2017 0909 EDT Please review and discuss with your provider at weekly meeting. Sent a this message to Dr. Hannah as well. CT Chest has been denied. * Telephone Encounter - Hallie Parisi - 04/26/2017 0905 EDT [employer], patient's insurance has denied his CT Chest once again, even after submission of recent x-ray at [facility] with recommendation from the radiologist. I have placed all the paperwork in your mailbox. * Telephone Encounter - Hallie Parisi - 04/23/2017 0956 EDT Spoke with phlebotomy services representative [facility] about the denied CT Chest. They did receive our fax (recent chest x-ray) and it is currently under review for reconsideration. She could not give me a timeline as they are addressed as they receive them. documented in this encounter Plan of Treatment [...] on filedocumented in this encounter Care Teams Beater Out Leveling Machine Relationship Specialty Start Date End Date Roxanna Hannah MD [address] [place] [phone] PCP - General 03/28/09 05/31/20 documented as of this encounter
--- OUTSIDE RECORDS SUMMARY | 2024-10-06 13:49 | XMS_ITS | Encounter Summary ---
Author Organization [facility] Address [address] [place] [address] Care Team Providers Care Registered Dietetic Technician Name Role Phone Roxanna Hannah MD Primary Care Provider + Encounter Details Date Type Department Care Team (Late st Contact Info) Description 04/03/2016 Phlebotomy Only [facility] [address] [place] [address] Grated Cheese Maker, Outpatient Other hyperlipidemia; Seizure disorder (CMS-HCC); Diabetes mellitus screening Social History Tobacco Use Types Packs/Day Years [...] Date/Time Associated Diagnosis Comments HEMOGLOBIN A1C Routine 04/03/2016 13:08 EDT Diabetes mellitus screening VALPROIC ACID LEVEL Routine 04/03/2016 1 3:08 EDT Seizure disorder ([facility]) LIPID PROFILE (INCLUDES CHOLESTEROL, TRIGLYCERIDES, HDL, LDL) Routine 04/03/2016 13:08 EDT Other hyperlipidemia COMPREHENSIVE METABOLIC PANEL (CMP) Routine 04/03/2016 13:08 EDT Other hyperlipidemia Seizure disorder ([facility]) documented in this encounter Results * VALPROIC ACID LEVEL (04/03/2016 13:08 EDT) Valproic Acid 74.1 50.0 - 100.0 ug/ml 04/03/2016 21:33 EDT [facility] Blood specimen (specimen) BLOOD SPECIMEN / Unknown 04/03/2016 13:08 EDT 04/03/2016 19:39 EDT Roxanna Hannah MD CHEMISTRY & BLOOD GAS OR DERABLES Final Result [facility] [address] [place] [address] * HEMOGLOBIN A1C (04/03/2016 13:08 EDT) Hemoglobin A1C 5.9 % 04/04/2016 10:34 [facility] Comment: Reference Range: <5.7% Normal 5.7-6.4% Increased risk for diabetes =>6.5% Diagnostic for diabetes (if confirmed) The A1c goal for non adults in general is <7%. The A1c goal for selected patients may be significantly lower than 7% if this can be achieved without significant hypoglycemia or other adverse effects of treatment. Est Avg Glucose 123 mg/dl 6 10:34 [facility] Comment: eAG represents the A1c result expressed as average glucose in mg/dl. Blood specimen (specimen) BLOOD SPECIMEN / Unknown 04/03/2016 13:08 EDT 04/03/2016 19:39 EDT us Roxanna Hannah MD CHEMISTRY & BLOOD GAS OR DERABLES Final Result [facility] [address] [place] [phone] * LIPID PROFILE (INCLUDES CHOLESTEROL, TRIGLYCERIDES, HDL, LDL) (04/03/2016 13:08 EDT) Cholesterol 173 mg/dl 04/03/2016 20:46 [facility] Comment: Desirable:<200 Borderline High:200-239 High:>hv=452 Triglycerides 208 mg/dl 04/03/2016 20:46 [facility] Comment: Normal:<150 Borderline High:150-199 High:200-499 Very High:>pg=773 HDL 35 mg/dl 04/03/2016 20:46 [facility] Comment: Low:<40 Normal:40-60 Desirable: >60 LDL, Calculated 96 mg/dl 6 20:46 [facility] Comment: Optimal:<100 Near Optimal:100-129 Borderline High:130-159 High:160-189 Very High:>rv=169 Chol/HDL Ratio 4.9 04/03/2016 20:46 [facility] Fasting? No 04/03/2016 13:10 [facility] Non HDL Cholesterol 138 mg/dl 04/03/2016 20:46 [facility] Comment: Desirable:<130 Borderline:130-159 High: 160-189 Very High: >te=851 Blood specimen (specimen) BLOOD SPECIMEN / Unknown 04/03/2016 13:08 EDT 04/03/2016 19:39 EDT us Roxanna Hannah MD CHEMISTRY & BLOOD GAS OR DERABLES Final Result [facility] [address] [place] [address] * (ABNORMAL) COMPREHENSIVE METABOLIC PANEL (CMP) (04/03/2016 13:08 EDT) Potassium 4.9 3.5 - 5.0 mEq/L 04/03/2016 20:46 [facility] Sodium 143 136 - 145 mEq/L 04/03/2016 20:46 [facility] Chloride 100 96 - 110 mEq/L 04/03/2016 20:46 [facility] CO2 29 24 - 32 mEq/L 04/03/2016 20:46 [facility] Total Alkaline Phosphatase 58 38 - 126 U/L 04/03/2016 20:46 [facility] Bilirubin, Total 0.6 <1.4 mg/dl 04/03/20 16 20:46 [facility] AST 26 15 - 46 U/L 04/03/2016 20:46 [facility] ALT 35 21 - 72 U/L 04/03/2016 20:46 [facility] Albumin 4.4 3.4 - 4.9 g/dl 04/03/2016 20:46 [facility] Total Protein 7.2 6.3 - 8.2 g/dl 04/03/2016 20:46 [facility] Creatinine 0.85 0.66 - 1.25 mg/dl 04/03/2016 20:46 [facility] GFR, Calculated 95 >60 ml/min/1.7 3m2 04/03/2016 20:46 [facility] Comment: eGFR calculated using CKD-EPI equation for non Americans. Multiply eGFR by 1.16 for Americans. BUN 19 10 - 26 mg/dl 04/03/2016 20:46 EDT [facility] Calcium 9.2 8.5 - 10.5 mg/dl 04/03/2016 20:46 T [facility] Calculated Calcium 9.2 8.5 - 10.5 mg/dl 04/03/2016 20:46 T [facility] Glucose, Serum 56(L) 70 - 100 mg/dl 04/03/2016 20:46 T [facility] Fasting? No 04/03/2016 13:10 [facility] Blood specimen (specimen) BLOOD SPECIMEN / Unknown 04/03/2016 13:08 EDT 04/03/2016 19:39 EDT us Roxanna Hannah MD CHEMISTRY & BLOOD GAS OR DERABLES Final Result [facility] [address] [place] [address] documented in this encounter Visit Diagnoses Diagnosis Other hyperlipidemia Seizure disorder ([facility]) Unspecified epilepsy without mention of intractable epilepsy Diabetes mellitus screening Screening for diabetes mellitus documented in this encounter Care Teams Registered Dietetic Technician Relationship Specialty Start Date End Date Roxanna Hannah MD [address] [place] [phone] PCP - General 03/28/09 05/31/20 documented as of this encounter
--- OUTSIDE RECORDS SUMMARY | 2024-10-06 13:49 | XMS_ITS | Encounter Summary ---
Author Organization [facility] Address [address] [place] [address] Care Team Providers Care Brewery Worker Name Role Phone Roxanna Hannah MD Primary Care Provider + Reason for Visit * Reason Onset Date Comments Dizziness 11/14/2016 Hypertension 11/14/2016 Encounter Details Date Type Department Care Team (Late st Contact Info) Description 11/14/[address] [phone] Roxanna Hannah MD [address] [place] [phone] Dizziness; Hypertension Social History Tobacco Use Types Packs/Day Years [...] * Telephone Encounter - Heydi Adams - 11/15/2016 0859 EST Patient is returning a call to our office. He states that her does not need a follow up right now and will call us if this changes. * Telephone Encounter - Maggie Andrade LPN - 11/14/2016 1653 EST Left message for pt. As he was seen at [facility] [place] 11/14/16. Dx'd with Anxiety. Please ask pt. If he would like a f/u jorden't. * Telephone Encounter - Jacklyn Guajardo - 11/14/2016 0836 EST Left message for pt to return call to office. * Telephone Encounter - Alva Medellin RN - 11/14/2016 0835 EST 11/14/16 0835 - Phone call taken immediately from Mr Curry. He shares On my way to the farm in [place]. I got really dizzy. I got to the farm and I thoughtI'd get started my day. I was still out of sorts. I did some work. I thought to hell with it, I'm not going to have a stroke for anybody. I took a couple of aspirin and something to drink. I feel somewhat better now. Denies chest pain. Shortness of breath or diaphoresis. No LOC. No weakness but share I still feeling a little out of sorts. History of HTN, seizure disorder and glucose intolerance. I did as patient what he had to eat this AM. He shares I had the equivalent of an Ensure, a piece of Pop Tart and a Pepsi. I took my usual pills Denies fever, chills or cold symptoms. I just finished with pneumonia and just finished my pills for that. There was a spot on my lung that I'm suppose to have an xray sometime to follow. Denies cold symptoms Patient asked if there was an appt at [facility] today. I have reviewed their schedule and shared there iscurrently not an available appt this Am. Patient instructed to report to [facility] ER now. He shares I've been in the cow barn. They'd kick me out. There are a couple of things I'd like to follow up and and then I'll go wash up and change, then I can go I've encouraged patient again to report to ER. He continues to adamantly refuse. Mraio understands risks of avoiding immediate medical attention. He did agree to notify the Farm's cheese cooker and his sonwho is currently working with him so they are aware. [facility] will be notified. Alva Medellin RN * Telephone Encounter - Stephanie Odom - 11/14/2016 0832 EST Reason for Call: Dizziness and Hypertension Summary/Symptoms: Patient was very dizzy this morning and felt like he was going to black out. He has high blood pressure and took a couple of aspirin and got some relief but still feels dizzy Onset and Duration? This morning it started. Appointment Offered? Iraida Odom 11/14/2016 8:32 documented in this encounter Plan of Treatment [...] on filedocumented in this encounter Care Teams Brewery Worker Relationship Specialty Start Date End Date Roxanna Hannah MD [address] [place] [phone] PCP - General 03/28/09 05/31/20 documented as of this encounter
--- OUTSIDE RECORDS SUMMARY | 2024-10-06 13:49 | XMS_ITS | Encounter Summary ---
Author Organization [facility] Address [address] [place] [address] Care Team Providers Care Livestock Agent Name Role Phone Roxanna Hannah MD Primary Care Provider + Reason for Visit * Reason Onset Date Comments Orders (Non Pre-visit) 05/02/2017 CT Scan Encounter Details Date Type Department Care Team (Late st Contact Info) Description 05/02/[address] [phone] Roxanna Hannah MD [address] [place] [phone] Orders (Non Pre-visit) (CT Scan) Social History Tobacco Use Types Packs/Day Years [...] * Telephone Encounter - Iwona Troncoso - 05/03/2017 1239 EDT Patient is calling back, given Dr. Hannah's message and will await her further suggestions. * Telephone Encounter - Pia Landa, KALYANI - 05/03/2017 0848 EDT Left message to call clinic. Need to report that insurance has denied referral x 2 and waiting for for further suggestions. * Telephone Encounter - Madalyn Bertrand - 05/02/2017 1537 EDT Patient would like a new order to [facility] for a CT scan, for the Right Lung. He had one in order made in 03/05/17 but [facility] was unable to schedule due to insurance issues. documented in this encounter Plan of Treatment [...] on filedocumented in this encounter Care Teams Livestock Agent Relationship Specialty Start Date End Date Roxanna Hannah MD [address] [place] [phone] PCP - General 03/28/09 05/31/20 documented as of this encounter
--- OUTSIDE RECORDS SUMMARY | 2024-10-06 13:49 | XMS_ITS | Encounter Summary ---
Author Organization [facility] Address [address] [place] [address] Care Team Providers Care Adapted Physical Education Teacher Name Role Phone Roxanna Hannah MD Primary Care Provider + Reason for Visit * Reason Onset Date Comments Labs Only 03/26/2016 Encounter Details Date Type Department Care Team (Late st Contact Info) Description 03/26/[address] [phone] Roxanna Hannah MD [address] [place] [phone] Labs Only Social History Tobacco Use Types [...] * Telephone Encounter - Heydi Adams - 03/26/2016 1453 EDT Left message on patients answering machine to let him know that labs have been ordered and to call us to schedule an appointment. * Telephone Encounter - Joi Hidalgo - 03/26/2016 1033 EDT Reason for Call: Labs Only Summary/Symptoms: Patient has an appointment on 04/10/16, normally has blood work done before his appointment, please order and call to setup appointment, thanks Joi Hidalgo 03/26/2016 10:33 documented in this encounter Plan of Treatment [...] 50.0 - 100.0 ug/ml 04/03/2016 21:33 EDT [facility] Blood specimen (specimen) BLOOD SPECIMEN / Unknown 04/03/2016 13:08 EDT 04/03/2016 19:39 EDT us Roxanna Hannah MD CHEMISTRY & BLOOD GAS OR DERABLES Final Result Performing Organization Address [facility] Co de Phone Number [facility] [address] [place] [address] * HEMOGLOBIN A1C (04/03/2016 13:08 EDT) Hemoglobin A1C 5.9 % 04/04/2016 10:34 EDT [facility] Comment: Reference Range: <5.7% Normal 5.7-6.4% Increased risk for diabetes =>6.5% Diagnostic for diabetes (if confirmed) The A1c goal for non adults in general is <7%. The A1c goal for selected patients may be significantly lower than 7% if this can be achieved without significant hypoglycemia or other adverse effects of treatment. Est Avg Glucose 123 mg/dl 6 10:34 EDT [facility] Comment: eAG represents the A1c result expressed as average glucose in mg/dl. Blood specimen (specimen) BLOOD SPECIMEN / Unknown 04/03/2016 13:08 EDT 04/03/2016 19:39 EDT us Roxanna Hannah MD CHEMISTRY & BLOOD GAS OR DERABLES Final Result Performing Organization Address [facility] Co de Phone Number [facility] [address] [place] [address] * LIPID PROFILE (INCLUDES CHOLESTEROL, TRIGLYCERIDES, HDL, LDL) (04/03/2016 13:08 EDT) Cholesterol 173 mg/dl 04/03/2016 20:46 T [facility] Comment: Desirable:<200 Borderline High:200-239 High:>sr=939 Triglycerides 208 mg/dl 04/03/2016 20:46 T [facility] Comment: Normal:<150 Borderline High:150-199 High:200-499 Very High:>ru=068 HDL 35 mg/dl 04/03/2016 20:46 T [facility] Comment: Low:<40 Normal:40-60 Desirable: >60 LDL, Calculated 96 mg/dl 6 20:46 T [facility] Comment: Optimal:<100 Near Optimal:100-129 Borderline High:130-159 High:160-189 Very High:>qw=796 Chol/HDL Ratio 4.9 04/03/2016 20:46 [facility] Fasting? No 04/03/2016 13:10 [facility] Non HDL Cholesterol 138 mg/dl 04/03/2016 20:46 [facility] Comment: Desirable:<130 Borderline:130-159 High: 160-189 Very High: >br=487 Blood specimen (specimen) BLOOD SPECIMEN / Unknown 04/03/2016 13:08 EDT 04/03/2016 19:39 EDT us Roxanna Hannah MD CHEMISTRY & BLOOD GAS OR DERABLES Final Result [facility] [address] [place] [address] * (ABNORMAL) COMPREHENSIVE METABOLIC PANEL (CMP) (04/03/2016 13:08 EDT) Potassium 4.9 3.5 - 5.0 mEq/L 04/03/2016 20:46 [facility] Sodium 143 136 - 145 mEq/L 04/03/2016 20:46 [facility] Chloride 100 96 - 110 mEq/L 04/03/2016 20:46 [facility] CO2 29 24 - 32 mEq/L 04/03/2016 20:46 [facility] Total Alkaline Phosphatase 58 38 - 126 U/L 04/03/2016 20:46 [facility] Bilirubin, Total 0.6 <1.4 mg/dl 04/03/20 16 20:46 [facility] AST 26 15 - 46 U/L 04/03/2016 20:46 [facility] ALT 35 21 - 72 U/L 04/03/2016 20:46 [facility] Albumin 4.4 3.4 - 4.9 g/dl 04/03/2016 20:46 [facility] Total Protein 7.2 6.3 - 8.2 g/dl 04/03/2016 20:46 [facility] Creatinine 0.85 0.66 - 1.25 mg/dl 04/03/2016 20:46 [facility] GFR, Calculated 95 >60 ml/min/1.7 3m2 04/03/2016 20:46 [facility] Comment: eGFR calculated using CKD-EPI equation for non Americans. Multiply eGFR by 1.16 for Americans. BUN 19 10 - 26 mg/dl 04/03/2016 20:46 T [facility] Calcium 9.2 8.5 - 10.5 mg/dl 04/03/2016 20:46 [facility] Calculated Calcium 9.2 8.5 - 10.5 mg/dl 04/03/2016 20:46 [facility] Glucose, Serum 56(L) 70 - 100 mg/dl 04/03/2016 20:46 [facility] Fasting? No 04/03/2016 13:10 [facility] Blood specimen (specimen) BLOOD SPECIMEN / Unknown 04/03/2016 13:08 EDT 04/03/2016 19:39 EDT Roxanna Hannah MD CHEMISTRY & BLOOD GAS OR DERABLES Final Result [facility] [address] [place] [address] documented in this encounter Visit Diagnoses Diagnosis Other hyperlipidemia- Primary Seizure disorder (HCC-CMS) Unspecified epilepsy without mention of intractable epilepsy Diabetes mellitus screening Screening for diabetes mellitus documented in this encounter Care Teams Adapted Physical Education Teacher Relationship Specialty Start Date End Date Roxanna Hannah MD [address] [place] [phone] PCP - General 03/28/09 05/31/20 documented as of this encounter
--- OUTSIDE RECORDS SUMMARY | 2024-10-06 13:49 | XMS_ITS | Encounter Summary ---
Author Organization [facility] Address [address] [place] [address] Care Team Providers Care Roof Fixer Name Role Phone Roxanna Hannah MD Primary Care Provider + Reason for Visit * Reason Comments Skin Lesion follow up skin irrit ation on left arm and wrist Encounter Details Date Type Department Care Team (Late st Contact Info) Description 06/27/2016 13:00 EDT Office Visit [facility] [address] [phone] Latesha Ochoa MD [address] [place] [phone] Arm wound, left, subsequent encounter (Primary Dx); Pustules determined by examination Social History Tobacco Use Types Packs/Day [...] Sign Reading Time Taken Comments Blood Pressure 146/82 06/27/2016 1256 EDT Pulse 68 06/27/2016 1256 EDT Temperature - - Respiratory Rate 16 06/27/2016 1256 EDT Oxygen Saturation - - Inhaled Oxygen Concentration - - Weight 111.1 kg (245 lb) 06/27/2016 1256 EDT Height - - Body Mass Index [...] this encounter Patient Instructions * Patient Instructions* Latesha Ochoa MD - 06/27/2016 13:27 EDT 1.keep both wounds covered Ok to use bag balm (not same jar as the cows!) 2.try hot salt water soaks to see if helps wounds Stop if makes worse 3.start both antibiotics Can take together Cephalexin is four times a day Doxycycline is twice per day Take with food 4.eat yogurt with cultures 6-8 ounces per day 5.WATCH THE SUN ON THE ANTIBIOTICS STAY OUT OF THE DIRECT SUN YOU MAY NEED LONG SLEEVE T SHIRT 6.call us on Saturday with update 7.if what we are doing is not working and you start to vomit, have a high fever, your arm blows up and gets super swollen, You get redness that spreads, go to the emergency room 8.get Hibiclens at the drug store Use Hibiclens for seven days now and then the first seven days of each month for the next 3-4 months documented in this encounter Ordered Prescriptions Prescription Sig Dispense Quantity Refills Last Filled Start Date End Date doxycycline (VIBRA-TABS) 100 mg tablet Take 1 Tab by mouth 2 times daily. 14 Tab 0 06/27/2016 07/02/2016 cephALEXin (KEFLEX) 500 mg capsule Take 1 Cap by mouth 4 times daily. 28 Cap 0 06/27/2016 07/02/2016 documented in this encounter Progress Notes * Latesha Ochoa MD - 06/27/2016 1302 EDT S:Mr. Curry is here today for a rash on his LEFT wrist and arm. Getting second spot just abovefirst one. Thinks first lesion may be getting bigger. +first lesion present for about three weeks. Second lesion just appeared in the last day or so. Both lesions started as blisters. Blisters are flat at first, then become raised. Not extremely painful. No severe pruritis. First blister was flat for approx 1.5 weeks. First blister popped over a week ago. Second blister starting to get raised more today. ?if pus came out of first blister. some dark fluid. No other lesions. No lesions in mouth or on tongue. Was seen in [facility]. Rx topical steroid at [facility]. On Prednisone wean now. Will complete Prednisone by the end of this week. Does not think Prednisone has helped it. Also used topical steroids. didn't help. 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 +some exposure to chemicals but does not have usual appearance of burn from chemicals. Wears sweats and short sleeve shirts to work. No previous brucellosis. 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 +hurts if bends wrist up and puts pressure on blister areas. Does not report weston thorn exposure. No fever/sweats/chills/nausea/vomiting/diarrhea/abdominal pain or cramping. No arthralgias or myalgias. No flu-like symptoms. No cough. No URI Sx. Otherwise feels well. No new personal care products. No new medications. Completed course of Zithromax in April for respiratory illness. +chronic depakote---never had any problem with it. ?if problem with sulfa Rx. +works outside/+lots sun exposure Patient Active Problem List Diagnosis ??? Routine history and physical examination of adult ??? Seizure disorder ??? Gastroesophageal reflux disease ??? Essential hypertension ??? Hyperlipidemia ??? Allergic rhinitis ??? Male erectile disorder ??? Atypical chest pain ??? Impaired glucose tolerance ??? Depression ??? Anxiety ??? Impaired glucose tolerance ??? Unspecified polyarthropathy or polyarthritis, shoulder region ??? Hydrocele ??? Obesity, Class I, BMI 30-34.9 Family History Problem Relation Age of Onset ??? Stroke Father ??? Breast Cancer Neg Hx ??? Colon Cancer Neg Hx ??? Colon Polyps Neg Hx ??? Endometrial Cancer Neg Hx ??? Esophageal Cancer Neg Hx ??? Ovarian Cancer Neg Hx ??? Pancreatic Cancer Neg Hx ??? Rectal Cancer Neg Hx ??? Stomach Cancer Neg Hx Current Outpatient Prescriptions on File Prior to Visit Medication Sig Dispense Refill ??? acetaminophen (TYLENOL) 650 mg tablet Take 1 Tab by mouth every 4 hours as needed for Pain. ??? aspirin 81 mg EC tablet Take 81 mg by mouth daily. ??? desoximetasone (TOPICORT) 0.25 % cream Apply topically 2 times daily. 1 Tube 0 ??? divalproex (DEPAKOTE) 500 mg delayed release tablet TAKE 3 TABLETS AT BEDTIME 270 Tab 3 ??? DOCOSAHEXANOIC ACID/EPA (FISH OIL ORAL) Take 1 Capsule by mouth daily ??? fluticasone (FLONASE) 50 mcg/actuation nasal spray Instill 2 Sprays into both nostrils daily. 16 g 2 ??? GLUC/ROSIBEL-MSM#1/VIT C/ZAYNAB/BOR (OGXHOPEMCIR-FALIK-AII COMPLEX ORAL) Take 1 Tab by mouth [...] facility-administered medications on file prior to visit. Family History Problem Relation Age of Onset ??? Stroke Father ??? Breast Cancer Neg Hx ??? Colon Cancer Neg Hx ??? Colon Polyps Neg Hx ??? Endometrial Cancer Neg Hx ??? Esophageal Cancer Neg Hx ??? Ovarian Cancer Neg Hx ??? Pancreatic Cancer Neg Hx ??? Rectal Cancer Neg Hx ??? Stomach Cancer Neg Hx 05/29/16 U/A [facility] Negative urine dip/no protein/no glucose Lab Results Component Value Date BUN 19 04/03/2016 BUN 19 03/28/2009 Lab Results Component Value Date CREATININE 0.85 04/03/2016 CREATININE 0.92 03/28/2009 Lab Results Component Value Date NA 143 04/03/2016 K 4.9 04/03/2016 KEXT 5.5* 05/29/2016 CL 100 04/03/2016 CLEXT 101 05/29/2016 CO2 29 04/03/2016 CO2EXT 32* 05/29/2016 Lab Results Component Value Date ALT 35 04/03/2016 ALT 38 02/24/2009 AST 26 04/03/2016 AST 29 02/24/2009 ALKPHOS 58 04/03/2016 ALKPHOS 73 02/24/2009 O:Blood pressure 146/82, pulse 68, resp. rate 16, weight 111.131 kg (245 lb). GEN:nontoxic/no cyanosis/alert and oriented HEENT:sclera and conjunctiva noninjected, no eye discharge, no scleral icterus Right TM:pearly early with visible landmarks Left TM:pearly early with visible landmarks MMM/no significant Pharyngeal erythema, Exudate, edema No oral mucosal lesions Airway is patent/no trismus NECK:supple/no significant anterior cervical nodes or posterior cervical nodes No thyromegaly nodule or mass CHEST:CTA bilaterally/no rales, rhonchi or wheezes. COR:RRR/no MRG ABD:+obese/ND/NT/normal BS/no HSM or masses EXT:no peripheral edema 2+ cap refill/hands are warm and perfused NEURO:no meningeal signs PERRL/EOMI Gross hearing and vision intact Tongue and palate midline No clonus or rigidity Normal gait 1-2+ reflexes biceps and patellar SKIN: 2x1.5 upper left lateral arm proximal lesion--low blister with cloudy fluid 5x4.5 left lower lateral arm distal lesion---s/p ruptured blister with cobblestoned base, +pustules, +serosanginous drainage, granulation tissue Both lesions have +surrounding erythema/no linear nodules There is no streaking/no hyperalgesia/no taut skin/no satellite lesions/no pitting edema +lower legs, arms, back, torso with multiple pinpoint pustules on erythematous bases There are no uticaria, peeling areas, blisters/vesicles associated with the pustules. Assessment: 1.Worsening arm wound now with second lesion proximal to first -prednisone likely providing anti-inflammatory properties but not bringing resolution and did not prevent development of second lesion -need to cover for staph/strep -?contact derm as initial agent -no systemic Sx to support cutaneous brucellosis -bullous pemphigoid, fixed drug eruption, E. Multiforme, sporotrichosis in DDx 2.multiple skin pustules in the absence of associated lesions Plan: 1.Cx of arm wound pustules 2.Start coverage with Doxy and Keflex. Start with 7 day course. Can extend to 10-14 days if needed. These agents were chosen due to his line of work, sun exposure and possible difficulty tolerating sulfa/concern for red man He was STILL ADVISED and educated about phototoxic rxn with Doxy He will wear long sleeves and long pants if needs to be in sun while on ABX regimen 3.keep wounds covered 4.try hot salt water soaks Can use table salt Stop if makes worse 5.complete steroid taper Can stop topical steroids 6.eat yogurt with cultures daily 7.call us Saturday with update. Discussed utilization of ER services with progression rev'd signs and symptoms to watch for 8.use Hibiclens for the next seven days and for the first week of the next 3-4 months. Provided instruction Watch other pustules. Do not manipulate area 9.may need Bx if does not improve Consider targeted Tx/eval as outlined in DDx. May need derm evaluation documented in this encounter Plan of Treatment [...] Date/Time Associated Diagnosis Comments BACTERIAL CULTURE/SMEAR Routine 06/27/2016 13:14 EDT Arm wound, left, subsequent encounter documented in this encounter Results * BACTERIAL CULTURE/SMEAR, OTHER (06/27/2016 13:14 EDT) Gram Smear Result No polys seen 06/27/2016 23:04 EDT [facility] Result Few STAPHYLOCOCCU S, COAGULASE NEGATIVE 06/29/2016 10:15 EDT [facility] Gram Smear Result No bacteria seen 06/27/2016 23:04 EDT [facility] Specimen of unknown material (specimen) SPECIMEN FROM SKIN / Unknown 06/27/2016 13:14 EDT 06/27/2016 19:30 EDT Comment:Specimen submitted o n a swab Latesha Ochoa MD MICROBIOLOGY - GENERAL OR DERABLES Final Result Performing Organization Address City/State/[facility] Co de Phone Number [facility] [address] [place] [address] documented in this encounter Visit Diagnoses Diagnosis Arm wound, left, subsequent encounter- Primary Pustules determined by examination documented in this encounter Care Teams Roof Fixer Relationship Specialty Start Date End Date Roxanna Hannah MD [address] [place] [phone] PCP - General 03/28/09 05/31/20 documented as of this encounter
--- OUTSIDE RECORDS SUMMARY | 2024-10-06 13:49 | XMS_ITS | Encounter Summary ---
Author Organization [facility] Address [address] [place] [address] Care Team Providers Care Dye Box Operator Name Role Phone Roxanna Hannah MD Primary Care Provider + Reason for Visit * Reason Comments Other Encounter Details Date Type Department Care Team (Late st Contact Info) Description 02/05/2016 [facility] [address] [address] Roxanna Hannah MD [address] [place] [phone] Other Social History Tobacco Use Types Packs/Day [...] TAKE 3 TABLETS AT BEDTIME 270 Tab 0 02/06/2016 6 hydrochlorothiazid e (MICROZIDE) 12.5 mg capsule TAKE 1 CAPSULE DAILY 90 Cap 0 02/06/2016 6 documented in this encounter Miscellaneous Notes * Telephone Encounter - Isaura Ray - 02/06/2016 1330 EDT Attempted to reach patient, no working number. * Telephone Encounter - Renee Gan RN - 02/06/2016 1240 EDT Medication(s) Requested: microzide #90 w 3rf and Depakote #270 w 1 rf Pharmacy: [facility] Last Refill Date: 09/05/15 for Depakote and 12/27/14 for microzide Last Visit Date: 12/27/14 Next Visit Date: Visit date not found Is patient out of medication? Unknown Need medication f/u appt. . Renee Gan RN 02/06/2016 12:41 documented in this encounter Plan of Treatment [...] Da te hydrochlorothiazide (MICROZIDE) 12.5 mg capsule TAKE 1 CAPSULE DAILY. Reorder 12/27/2014 02/05/2016 divalproex (DEPAKOTE) 500 mg delayed release tablet Take 3 tablets at bedtime Reorder 09/05/2015 02/05/2016 documented as of this encounter Care Teams Dye Box Operator Relationship Specialty Start Date End Date Roxanna Hannah MD [address] [place] [phone] PCP - General 03/28/09 05/31/20 documented as of this encounter
--- OUTSIDE RECORDS SUMMARY | 2024-10-06 13:49 | XMS_ITS | Encounter Summary ---
Author Organization [facility] Address [address] [place] [address] Care Team Providers Care See Wheeler Name Role Phone Roxanna Hannah MD Primary Care Provider + Reason for Visit * Reason Onset Date Comments Medications Refill 11/28/2014 Encounter Details Date Type Department Care Team (Late st Contact Info) Description 11/28/2014 Refill [facility] Family Medicine [address] [address] Roxanna Hannah MD [address] [place] [address] [phone] Medications Refill Social History Tobacco Use Types [...] encounter Miscellaneous Notes * Telephone Encounter - Cleo Castle - 11/30/2014 1320 EST Voicemail left for Mario asking him to call the office to schedule a visit * Telephone Encounter - Jasmin Lino RN - 11/29/2014 1147 EST the patient has not been seen in over a year to address hyperlipidemia. Please call to schedule an office visit then route the Zocor refill to the nurse pool documented in this encounter Plan of Treatment Not on file documented as of this encounter Goals Goal Patient Goal Type Associated Problems Recent Progress Patient-Stated? Author Blood Pressure < 130/80 Blood Pressure Hypertension 130/84(2019 8:53 EST) No Roxanna Hannah MD documented as of this encounter Visit Diagnoses Not on filedocumented in this encounter Care Teams See Wheeler Relationship Specialty Start Date End Date Roxanna Hannah MD [address] [place] [phone] PCP - General 03/28/09 05/31/20 documented as of this encounter
--- OUTSIDE RECORDS SUMMARY | 2024-10-06 13:49 | XMS_ITS | Encounter Summary ---
Author Organization [facility] Address [address] [place] [address] Care Team Providers Care Mold Changer Name Role Phone Roxanna Hannah MD Primary Care Provider + Reason for Visit * Reason Onset Date Comments Dizziness 04/15/2017 Encounter Details Date Type Department Care Team (Late st Contact Info) Description 04/15/[address] [address] Maggie Andrade LPN Dizziness Social History Tobacco Use Types Packs/Day Years [...] Telephone Encounter - Maggie Andrade LPN - 04/15/2017 1441 EDT Pt. Was called as he was [place] [facility] [place] for dizziness. Pt. Stated he's having a CT scan tomorrow. He does not need a f/u at this time. documented in this encounter Plan of Treatment [...] on filedocumented in this encounter Care Teams Mold Changer Relationship Specialty Start Date End Date Roxanna Hannah MD [address] [place] [phone] PCP - General 03/28/09 05/31/20 documented as of this encounter
--- OUTSIDE RECORDS SUMMARY | 2024-10-06 13:50 | XMS_ITS | Encounter Summary ---
Author Organization [facility] Address [address] [place] [address] Care Team Providers Care Middleware Solutions Architect Name Role Phone Roxanna Hannah MD Primary Care Provider + Reason for Visit * Reason Comments Follow-up Scrotal mass on the right side and UA Encounter Details Date Type Department Care Team (Late st Contact Info) Description 01/28/2013 8:00 EST Office Visit [facility] Urology - [address] [address] Kye Brown, DO [address] [facility], [address] [place] [phone] Hydrocele, unspecified (Primary Dx) Social History Tobacco Use Types [...] documented in this encounter Progress Notes * Kye Brown, DO - 01/28/2013 0846 EST Mario Curry was seen in my office today in consultation at the request of Dr Roxanna Hannah. CHIEF COMPLAINT: Increasing right scrotum with sometimes right-sided scrotal pain. HISTORY OF RECENT ILLNESS: Mario Sykes had seen a few years ago for hematospermia, possible prostatitis. That cleared and never came back. He has only mild BPH, LUTS. What he has had is a slowly enlarging right scrotum, as near as he can tell the last few years, but now it is to the point where he puts on his jeans he feels it, when turns over at night, he feels it and presents for evaluation and recommendations. He is urinating, good stream, good control. PAST HISTORY: He has no other sequelae. FAMILY HISTORY: N/A. PAST MEDICAL HISTORY: Elevated cholesterol, essential hypertension. PAST SURGICAL HISTORY: No surgeries of note. MEDICATIONS: His medication list is per the EHR for his elevated cholesterol, essential hypertension, with his multivitamins and aspirin. ALLERGIES: He is intolerant of Tegretol. SOCIAL AND PERSONAL HISTORY: N/A. REVIEW OF SYSTEMS: Constitutional: Weight stable, appetite good. Eyes: No acute visual changes. ENT: No URI or sore throat recently, no hearing changes. Cardiovascular: No chest pain or recent cardiac problems. Respiratory: No shortness of breath, recent cough or other breathing concerns. Gastrointestinal: No bowel changes or recent history. Integumentary: No rashes or recent history of changes. Neurologic: No unusual headaches, weakness or other recent changes. Psychiatric: No depression or recent changes. Endocrine: No diabetes, thyroid disorder, or other known past history. Hematologic and lymphatic: No bleeding problems or easy bruising. Musculoskeletal: No spine or lower extremity pain or swelling. PHYSICAL EXAM: Alert, oriented, well-developed, well-nourished male in no acute distress. Sclerae and conjunctivae clear. No oral lesions. No palpable neck or thyroid abnormalities. No supraclavicular or inguinal adenopathy. Heart regular with no murmur. On chest exam, there was no gynecomastia. Abdomen soft with no masses or tenderness. No ventral or inguinal hernias. Spine and paraspinal musculature normal with no costovertebral angle tenderness. Perineal and lower extremity motor and sensoryfunctions intact. Normal penis with no plaques. Glans and meatus are normal. The right hemiscrotum is enlarged, transilluminable. Cord above it is normal. Left testis, epididymis, cord is normal. I cannot palpate the right testis. Perirectal and perineal area is normal. Prostate gland 2/4 symmetricwith no nodules or induration. Seminal vesicles are nonpalpable. Rectal exam is unremarkable. Lowerextremities without edema or deformity. No external genitalia or lower abdominal rash or skin lesions. LABORATORY AND RADIOLOGY: Urinalysis is pending. IMPRESSION AND RECOMMENDATION: Right hydrocele. We went over printed information, what it is, if itis a quality of life issue, hydrocelectomy, what that means, pros, cons, risks, benefits versus draining, which is temporizing. Right now he feels he could wait it out and I think that is very prudent, considering what I see and over the years, if it becomes a quality of life issue, certainly a hydrocelectomy can be done anytime. Discussed the previous prostatitis, which has not recurred as well as hematospermia and he keeps up close followup with his attending physicians, Dr Hannah and Dr Valente. He knows to call me for interval changes or concerns going forward. documented in this encounter Plan of Treatment Not on file documented as of this encounter Visit Diagnoses Diagnosis Hydrocele, unspecified- Primary documented in this encounter Discontinued Medications Medication Sig Discontinue Reason Start Date End Da te docusate sodium (COLACE) 100 mg capsule Take 2 Caps by mouth 2 times daily. 11/07/2012 01/28/2013 documented as of this encounter Care Teams Middleware Solutions Architect Relationship Specialty Start Date End Date Roxanna Hannah MD [address] [place] [phone] PCP - General 03/28/09 05/31/20 documented as of this encounter
--- OUTSIDE RECORDS SUMMARY | 2024-10-06 13:50 | XMS_ITS | Encounter Summary ---
Author Organization [facility] Address [address] [place] [address] Care Team Providers Care Warehouse Administrative Assistant Name Role Phone Roxanna Hannah MD Primary Care Provider + Reason for Visit * Reason Onset Date Comments Follow-up 12/08/2013 [facility] [place] a nd Concern [place]. Encounter Details Date Type Department Care Team (Late st Contact Info) Description 12/08/[address] [phone] Roxanna Hannah MD [address] [place] [address] [phone] Follow-up ([facility] [facility] Care and Concern Call.) Social History Tobacco Use Types Packs/Day Years [...] encounter Miscellaneous Notes * Telephone Encounter - Camryn Wise - 12/08/2013 1023 EST Left message for pt with a Care and Concern call. Informed pt of telephone number and asked him to call the office if he feels that he needs a f/u appointment. Camryn Wise documented in this encounter Plan of Treatment Not on file documented as of this encounter Goals Goal Patient Goal Type Associated Problems Recent Progress Patient-Stated? Author Blood Pressure < 130/80 Blood Pressure Hypertension 130/84(2019 8:53 EST) No Roxanna Hannah MD documented as of this encounter Visit Diagnoses Not on filedocumented in this encounter Care Teams Warehouse Administrative Assistant Relationship Specialty Start Date End Date Roxanna Hannah MD [address] [place] [phone] PCP - General 03/28/09 05/31/20 documented as of this encounter
--- OUTSIDE RECORDS SUMMARY | 2024-10-06 13:50 | XMS_ITS | Encounter Summary ---
Author Organization [facility] Address [address] [place] [address] Care Team Providers Care Housekeeping Staff Name Role Phone Roxanna Hannah MD Primary Care Provider + Reason for Visit * Reason Comments Other Encounter Details Date Type Department Care Team (Late st Contact Info) Description 10/04/2013 [facility] Family Medicine [address] [phone] Roxanna Hannah MD [address] [place] [address] [phone] Other Social History Tobacco Use Types Packs/Day [...] * Telephone Encounter - Cleo Castle - 10/05/2013 1127 EST Per [facility] Mail Order, patient has prescriptions on file. Please disregard * Telephone Encounter - Jasmin Lino RN - 10/05/2013 1003 EST the patient was last seen on 09/03/12 to address hypertension, Please call to schedule an office visit then route the hydrochlorothiazide refill to the nurse pool documented in this encounter Plan of Treatment Not on file documented as of this encounter Visit Diagnoses Not on filedocumented in this encounter Care Teams Housekeeping Staff Relationship Specialty Start Date End Date Roxanna Hannah MD [address] [place] [phone] PCP - General 03/28/09 05/31/20 documented as of this encounter
--- OUTSIDE RECORDS SUMMARY | 2024-10-06 13:50 | XMS_ITS | Encounter Summary ---
Author Organization [facility] Address [address] [place] [address] Care Team Providers Care Maternity Nurse Name Role Phone Roxanna Hannah MD Primary Care Provider + Reason for Visit * Reason Onset Date Comments Medications Refill 07/24/2012 Encounter Details Date Type Department Care Team (Late st Contact Info) Description 07/24/2012 Refill [facility] Medicine [address] [address] Roxanna Hannah MD [address] [place] [address] [phone] Medications Refill Social History Tobacco Use Types Packs/Day Years Used Date Smoking Tobacco: Never Alcohol Use Standard Drinks/Week Comments Yes 0 (1 standard drink = 0.6 oz pur e alcohol) 2-3 drinks per week Sex and Gender Information Value Date Recorded Sex Assigned at Not on file Legal Sex Male 18:06 EST Gender Identity Male 12/31/2019 13:46 EST Sexual Orientation Not on file documented as of this encounter Ordered Prescriptions Prescription Sig Dispense Quantity Refills Last Filled Start Date End Date hydrochlorothiazide (MICROZIDE) 12.5 mg capsule Take 1 Cap by mouth daily. 90 Cap 3 07/24/2012 07/17/2013 simvastatin (ZOCOR) 40 mg tablet Take 1 Tab by mouth daily. 90 Each 3 07/24/2012 10/28/2012 divalproex (DEPAKOTE) 500 mg ER tablet Take 3 Tabs by mouth daily. Brand name 270 Tab 3 07/24/2012 10/28/2012 documented in this encounter Miscellaneous Notes * Telephone Encounter - Chari Patterson - 07/24/2012 1043 EDT Patient has refills with [facility], would like these to go to [facility] [place]. He forgot to ask yesterday when he saw the doctor. documented in this encounter Plan of Treatment Not on file documented as of this encounter Visit Diagnoses Not on filedocumented in this encounter Discontinued Medications Medication Sig Discontinue Reason Start Date End Da te divalproex (DEPAKOTE) 500 mg ER tablet Take 3 Tabs by mouth daily. Brand name Reorder 07/11/2011 07/24/2012 simvastatin (ZOCOR) 40 mg tablet Take 1 Tab by mouth daily. Reorder 07/11/2011 07/24/2012 hydrochlorothiazide (MICROZIDE) 12.5 mg capsule Take 1 Cap by mouth daily. Reorder 07/11/2011 07/24/2012 documented as of this encounter Care Teams Maternity Nurse Relationship Specialty Start Date End Date Roxanna Hannah MD [address] [place] [phone] PCP - General 03/28/09 05/31/20 documented as of this encounter
--- OUTSIDE RECORDS SUMMARY | 2024-10-06 13:50 | XMS_ITS | Encounter Summary ---
Author Organization [facility] Address [address] [place] [address] Care Team Providers Care Director Instrumentation Name Role Phone Roxanna Hannah MD Primary Care Provider + Unknown, Provider Primary Care Provider Unava ilable Roxanna Hannah MD Primary Care Provider + Rebeca Garcia Primary Care Provider + Reason for Visit * Reason Comments Other Encounter Details Date Type Department Care Team (Late st Contact Info) Description [facility] [address] [phone] Roxanna Hannah MD [address] [place] [address] [phone] Other Social History Tobacco Use Types Packs/Day [...] 1 TABLET EVERY EVENING 90 Tab 0 08/16/2014 5 documented in this encounter Miscellaneous Notes * Telephone Encounter - Michaela Moyer, RN - 08/16/2014 1420 EDT PAIGE 10/27/13 Pt is due in October for lab work and follow up cholesterol. Simvastatin prescription approved for 90 days. documented in this [...] Da te simvastatin (ZOCOR) 40 mg tablet Take 1 Tab by mouth every evening. Reorder 10/27/2013 08/16/2014 documented as of this encounter Additional Health Concerns Infection Onset Date Last Indicated Resolved Time COVID-19 03/22/2022 03/22/2022 04/11/2022 22:1 5 EDT documented as of this encounter Care Teams Director Instrumentation Relationship Specialty Start Date End Date Roxanna Hannah MD [address] [place] [phone] PCP - General 03/28/09 05/31/20 Unknown, Provider, [address] [place] [phone] PCP - General 06/01/20 09/11/20 Roxanna Hannah MD [address] [place] [phone] PCP - General Family Medicine - Primary Care 09/12/20 12/08/20 Rebeca Garcia PA [address] [place] [phone] PCP - General 11/25/21 documented as of this encounter
--- OUTSIDE RECORDS SUMMARY | 2024-10-06 13:50 | XMS_ITS | Encounter Summary ---
Author Organization [facility] Address [address] [place] [address] Care Team Providers Care Political Reporter Name Role Phone Roxanna Hannah MD Primary Care Provider + Encounter Details Date Type Department Care Team (Late st Contact Info) Description 11/06/2012 6:42 EST - 11/07/2012 12:57 EST Hospital Encounter [facility] General Surgery Unit [address] [place] [address] Flex Aaron MD [address] [place] [phone] Unspecified polyarthropathy or polyarthritis, shoulder region Discharge Disposition: Home or Self Care Social [...] Sign Reading Time Taken Comments Blood Pressure 140/81 11/07/2012 0913 EST Pulse 84 11/07/2012 0913 EST Temperature 37.2 ??C (99 ??F) 11/07/2012 0536 EST Respiratory Rate 14 11/07/2012 0536 EST Oxygen Saturation 94% 11/07/2012 0536 EST Inhaled Oxygen Concentration - - Weight 108.9 kg (240 lb) 10/28/2012 1034 EST Height 175.3 cm (5' 9) 10/28/2012 1034 EST Body Mass Index 35.44 10/28/2012 1034 EST documented in this encounter Mental Status * Because of a physical, mental, or emotional condition, do you have serious difficulty concentrating, remembering, or making decisions? (5 years old or older) Answer Entry Date Author Yes 11/06/2012 16:17 EST Vaishali Rocha documented in this encounter Discharge Summaries * Suzanne Chung PA - 11/06/2012 1148 EST Discharge Summary Chief Complaint/Reason for Admission: Left shoulder DJD, elective TSA Admitted Via: DOSA Principal/Final Diagnosis: Left shoulder DJD Principal Procedure: Left shoulder TSA Date: 11/06/2012 Secondary Procedures: Condition at Discharge: Improved Assessment at Discharge: Vital signs: Patient Vitals for the past 12 hrs: BP Pulse Resp Temp SpO2 O2 Device 11/07/12 0913 140/81 mmHg 84 - - - - 11/07/12 0536 172/98 mmHg - 14 37.2 ??C (99 ??F) 94 % Room air 11/07/12 0243 158/88 mmHg - - - - - 11/07/12 0211 168/102 mmHg - - - - - 11/07/12 0206 170/103 mmHg 96 14 37.8 ??C (100 ??F) 96 % Room air 11/06/12 2226 140/94 mmHg 93 14 37.3 ??C (99.1 ??F) 97 % Room air Hospital Course: Pt admitted DOS, 11/06/2012, for elective left total shoulder arthroplasty. Pt elected to undergo genral anesthesia with no complications. Pain was controlled using Dilaudid. Aspirinwas used for DVT prophylaxis. PT was initiated POD#1 per protocol. Pt was d.jake to home on POD# 1. Pt to f/u with Dr. Aaron as an outpatient next week. Relevant Studies at Discharge: none Last Lab Results at Discharge: HGB: Lab Results Component Value Date HGB 14.3 11/07/2012 cc: PCP: Roxanna Hannah MD Referring Prov:Roxanna Aaron Discharge Summary Completed: Yes 11/07/12 Cosigned by Flex Aaron MD at 11/13/2012 10:32 EST documented in this encounter Discharge Instructions * Discharge Instructions* Valorie Ruiz PA - 11/06/2012 15:26 EST Diet: Regular Activity: Elevate affected extremity Exercises prescribed (see Physical Therapy booklet) Use sling at all times. No driving until you see your physician. Skin/Wound Care: Do not change dressing. Bathing: Do not get wound wet. May shower after 48 hours from date of discharge. Pending Results: Not applicable Symptoms to Call Your Doctor About: No bowel movement within 3 days of discharge Numbness in extremity Odor from incision Pain unrelieved by medication Poor circulation (skin cool to touch or blue) Redness, swelling or drainage from wound Shortness of breath Skin rash Temperature greater than 101 degrees F Appointments: See Flex Manning MD at your scheduled appointment. Follow-up Services Contacted at Discharge: none Health Risk and Disease Information: Not applicable documented in this encounter Medications at Time of Discharge acetaminophen (TYLENOL) 650 mg tablet Take 1 Tab by mouth every 4 hours as needed for Pain. 11/07/2012 aspirin 81 mg EC tablet Take 1 Tablet by mouth daily. MULTIVITAMINS (MULTI-VITAMIN ORAL) Take 1 Tab by mouth daily. divalproex (DEPAKOTE) 500 mg delayed release tablet Take 500 mg by mouth at bedtime. 3 tablets,total of 1500 mg 07/17/2013 docusate sodium (COLACE) 100 mg capsule Take 2 Caps by mouth 2 times daily. 11/07/2012 01/28/2013 hydrochlorothiazi de (MICROZIDE) 12.5 mg capsule Take 1 Cap by mouth daily. 90 Cap 3 07/24/2012 07/17/2013 HYDROmorphone (DILAUDID) 2 mg tablet Take 1-3 Tabs by mouth every 3 hours as needed for Pain. 60 Tab 0 11/07/2012 01/20/2013 omeprazole (PRILOSEC) 20 mg capsule Take 1 Cap by mouth daily. 90 Cap 3 05/02/2012 04/25/2013 simvastatin (ZOCOR) 40 mg tablet Take 40 mg by mouth every evening. 07/17/2013 tramadol (ULTRAM) 50 mg tablet Take 1 Tab by mouth every 6 hours as needed for Pain. 10 Tab 0 10/27/2012 01/20/2013 documented as of this encounter Ordered Prescriptions Prescription Sig Dispense Quantity Refills Last Filled Start Date End Date acetaminophen (TYLENOL) 650 mg tablet Take 1 Tab by mouth every 4 hours as needed for Pain. 11/07/2012 HYDROmorphone (DILAUDID) 2 mg tablet Take 1-3 Tabs by mouth every 3 hours as needed for Pain. 60 Tab 0 11/07/2012 01/20/2013 docusate sodium (COLACE) 100 mg capsule Take 2 Caps by mouth 2 times daily. 11/07/2012 01/28/2013 documented in this encounter Discharge Disposition Disposition Code Departure Means Destination Home or Self Care documented in this encounter Progress Notes * Brant Oliveros - 11/07/2012 1552 EST 11.07.12 Case Management DC note Patient DCed hoe with no HH or DME needs. Adequate supports in place at home and his will transport when ready for DC. Rx filled at [facility] in [facility]. [facility] Brant Oliveros, OIL OPERATOR #[id number] * Yashira Salazar, KALYANI - 11/07/2012 1242 EST Patient is post-op day 1 from a Left Total Shoulder. Alert and oriented to person, place and time, lungs clear on room air, heart rate regular and vital signs stable. Ambulating independently. Shoulder dressing changed by PA, clean, dry and intact. Cryocuff and ultrasling in place, pain controlled with PO dilaudid and tylenol. Voiding adequate amounts clear, yellow urine and bowel sounds positive, with positive flatus. Educated patient on discharge instructions and provided education. Patient discharged off floor with and belongings at 1257 * Suzanne Chung PA - 11/07/2012 1009 EST POD #1 s/p left TSA S: Pt doing well this morning and without any concerns. Pain has been relatively under control. He denies any fever/chills, cp, sob, abd pain, n/v, Torres, dizziness, calf pain or numbness/tingling. +Flatus, -BM. O: Temp 99.0 Pulse 84 Resp 14 BP 140/81 Pt A&Ox3, in NAD Card: RRR Lungs; Nonlabored, CTA Abd: soft, NT, +BS Left shoulder: Incision C/D/I, no erythema or drainage noted. Cap refill intact. Pulses intact. Sensation intact. 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 New dressing applied today. UO 755 cc last shift Lytes- WNL Hct 41.7 A/P Pt doing well this morning and without any new concerns, POD #1 s/p left TSA 1. Pain- Under control with current medication, will continue as an outpatient 2. PT- as per protocol 3. Continue ASA as outpatient. 4. DANIEL- Likely today, following PT session. Pt to f/u with Dr. Aaron as an outpatient next week. * Dorothy Trinh - 11/07/2012 0907 EST [facility] Physical Therapy Initial/Discontinue Evaluation Note Date of Service: 11/07/2012 Reason for Referral: Evaluate and treat Precautions: Activity as tolerated and PROM flexion 110, ABD 75 and ER 35 SUBJECTIVE: The medication that they gave me this morning really helped my pain. Pain: Location: L shoulder Intensity: 3/10 (at present) Frequency: constant Quality: Deep ache Aggravating factors: movement Alleviating factors: Pain medication OBJECTIVE: Patient Profile: Patient is a 57 y.o. male admitted on 11/06/2012 secondary to *Left Total ShoulderThe patient lives at [address] [place] [address] Home environment Lives: with spouse Caregiver Support: 24-hour assist Equipment Available: None Home Environment: House Home Layout: One story. Entry stairs: No stairs Prior Level of Function: Independent Services prior to admission: None Work/Leisure: Retired Medical/Surgical History: Current: Patient Active Problem List Diagnoses ??? Routine history and physical examination of adult ??? Seizure disorder ??? Gastroesophageal reflux disease ??? Essential Hypertension ??? Hyperlipidemia ??? Allergic Rhinitis ??? Abnormal Glucose Tolerance Test ??? Male erectile disorder ??? Atypical chest pain ??? Impaired glucose tolerance ??? Depression ??? Anxiety ??? Impaired glucose tolerance ??? Unspecified polyarthropathy or polyarthritis, shoulder region Past: Past Medical History Diagnosis Date ??? Erectile dysfunction ??? Abnormal glucose tolerance test 03/09/2009 ??? Allergic rhinitis 03/19/2007 ??? Hyperlipidemia 01/31/2005 ??? Essential hypertension 10/24/2004 ??? Seizure disorder 08/05/2002 ??? Routine general medical examination at health care facility 08/05/2002 ??? GERD (gastroesophageal reflux disease) 08/05/2002 ??? Seizures ??? Impaired glucose tolerance 10/03/2011 Past Surgical History Procedure Date ??? Cholecystectomy R shoulder yael Dr. Terence Johnson ??? Shoulder surgery s/p dislocation Medications: Medications reviewed Arousal, Attention, and Cognition: Orientation: Alert Oriented to person, place, and time Cardiopulmonary: Vital Signs: Activity Heart rate (bpm) Blood Pressure (mmHg) Respiratory rate (breaths/min) Oxygen Sat/ Fractions of inspired Oxygen SPO2/FIO2 % Pre 96 175/119 ne 94% During ne ne ne ne Post 102 172/100 ne 94% Integumentary/Anthropometric Characteristics: Palpation/Observation: Skin: dressing c/d/i on L shoulder Posture: pt presented with forward head, protracted shoulders in standing Range of Motion and Joint Integrity: Active Range of Motion: Within normal limits except as noted Upper Quarter: Left Upper Extremity: PROM flexion 30 degrees, ABD 30 degrees, ER 0 degrees , IR 45 degrees Right Upper Extremity: WNL Cervical Spine: WNL Lower Quarter: Left Lower Extremity: WNL Right Lower Extremity: WNL Lumbar Spine: not evaluated Muscle Performance: Strength: Formal resistive muscle testing was not performed due to pt unable to attain proper positioning Upper Quarter: Left Upper Extremity: not evaluated Right Upper Extremity: 4/5 shoulder flexion, ABD; 5/5 biceps, triceps and funeral home makeup artist strength; evaluated in supine with head of bed elevated 45 degrees Cervical Spine: not evaluated Lower Quarter: Left Lower Extremity: >3/5 as demonstrated through functional mobility and ambulation Right Lower Extremity: >3/5 as demonstrated through functional mobility and ambulation Lumbar Spine: not evaluated Sensation, Reflexes, and Nerve Integrity: Light Touch Sensation: Upper Quarter: Intact C4-T1 Lower Quarter: Not evaluated but light touch sensation appears intact Neuromotor Function/Development: No problems noted Balance, Locomotion, and Gait: Balance: No loss of balance observed throughout physical therapy session Locomotion: Not evaluated as wheelchair mobility does not apply to this patient. Gait: Assistive device/distance/assist/deviations: None/500 feet/supervision progressing to mod I/ no deviations noted Self-Care, Home Management, Work, and Leisure: Mobility evaluation as follows: Rolling: not evaluated Supine to sit: mod I Sit to supine: not evaluted Sit to stand: mod I Stand to sit: mod I Bed to chair: not evaluated Chair to bed: not evaluated Informed Consent: The patient consented to the physical therapy evaluation. The patient agrees to and understands the physical therapy treatment plan and goals. Interventions Completed Today: Physical Therapy today at: 08:30-09:05/35 minutes Examination: 35 minutes Intervention: 0 minutes Intervention included: No interventions completed today Patient/Family Education: Topic: Positioning Precautions/protocol Role of therapy Sling and cryocuff Learner: patient Method: verbal Barriers to Learning: none noted Outcome: verbalized understanding and returned demonstration Team Communication: Discussed pt's status with nurse prior to entering room. Physician made aware of recommendations. ASSESSMENT: Upper Quarter Screen: Positive findings Physical Therapy Diagnosis: Impaired joint mobility, motor function, muscle performance, and ROM associated with total shoulder surgery Physical Therapy Prognosis: Good. Anticipate pt will progress quickly, as pt is motivated to returnto prior level of functioning. Pt was able to verbalize and demonstrate understanding of PT recommendations. Pt has had shoulder surgery before, therefore is aware of the protocol of what to do whileat home. Pt has a number of medical co-morbidities which may impact rate of recovery. Pt is overweight, however did not demonstrate activity intolerance while walking. Pt presented with limited L shoulder ROM due to increased pain. Therefore, pain may be a limiting factor with progression of L shoulder ROM. Pt will need assistance with ADL's while at home, however pt does have 24/7 assist from his spouse. Recommend pt discharge home when medically stable and attend outpatient physical therapy. Short-Term Goals: N/A Long-Term Goals: N/A PLAN: Discontinue Physical Therapy Recommended Discharge Destination: Home with spouse Recommended Discharge Services: Outpatient physical therapy Recommended Equipment Needs: No equipment necessary Other recommendations: No other consults recommended at this time Pager: [phone] Dorothy Trinh [facility] 11/07/2012 9:07 Cosigned by Nathan Lewis, PT at 11/07/2012 11:39 EST * Roxanna Art RN - 11/06/2012 1424 EST Awaiting transportation to floor bed * Carol Moya RN - 10/28/2012 1053 EST Mario Curry has been instructed as follows regarding medication administration for the day of the scheduled procedure. Date of Surgery: 11/06/2012 Instructions for Taking Medications Day of Surgery Medication Last Dose Hold DOS Take DOS divalproex (DEPAKOTE) 500 mg delayed release tablet Yes,hs med simvastatin (ZOCOR) 40 mg tablet Yes,hs med tramadol (ULTRAM) 50 mg tablet prn naproxen (NAPROSYN) 500 mg tablet 11/02/12 per web page yes hydrochlorothiazide (MICROZIDE) 12.5 mg capsule yes omeprazole (PRILOSEC) 20 mg capsule yes aspirin 81 mg EC tablet yes MULTIVITAMINS (MULTI-VITAMIN ORAL) 10/28/2012 yes GLUCOSAMINE [id number] ORAL yes Cod Liver Oil Cap yes documented in this encounter H&P Notes * RESIDENT ASSISTANT CNA, SCAN 2 - 11/12/2012 0630 EST * Flex Aaron MD - 11/06/2012 0821 EST The preoperative history and physical which was performed within 30 days of this procedure has been reviewed and the clinically appropriate elements of the physical examination have been repeated. There are no changes to the documented history and physical or if so such changes are documented below FLEX AARON MD 11/06/2012 8:21 documented in this encounter Procedure Notes * RESIDENT ASSISTANT CNA, SCAN 2 - 11/12/2012 0630 ESTAssociated Order(s): ECG REPORT - SCANNED * RESIDENT ASSISTANT CNA, SCAN 2 - 11/12/2012 0630 ESTAssociated Order(s): IMPLANT RECORD - SCANNED documented in this encounter Nursing Notes * RESIDENT ASSISTANT CNA, SCAN 2 - 11/12/2012 0630 EST documented in this encounter OR Notes * OR PreOp - RESIDENT ASSISTANT CNA, SCAN 2 - 11/12/2012 0630 EST * OR Surgeon - Flex Aaron MD - 11/07/2012 0946 EST OPERATIVE REPORT SERVICE DATE: 11/06/2012 SURGEON: Flex Aaron MD SUBSTITUTE TEACHER: Valorie Diehl PA-C (No residents available for the case.) PREOPERATIVE DIAGNOSIS: Left shoulder end-stage osteoarthritis status post stabilization surgery many years ago. 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 PROCEDURE: Left total shoulder arthroplasty using the Tornier resurfacing system implant and bicepstenodesis. IMPLANTS: A #46 humeral resurfacing cap and a #48 Affinity glenoid. ANESTHESIA: General, plus local plus a TENS unit. INDICATIONS: This is a 57-year-old gentleman who has had progressive left shoulder pain and stiffness. He has previously undergone left shoulder stabilization many years ago for instability. He has developed severe end-stage osteoarthritis of the glenohumeral joint confirmed radiographically. MRI scan confirms some partial-thickness rotator cuff tearing but intact rotator cuff and severe arthritis with very large osteophytes. The natural history, and prognosis and treatment options were reviewed with him including continued conservative and nonoperative management versus operative intervention with shoulder arthroplasty. Different types of shoulder arthroplasty including hemiarthroplasty versus total shoulder arthroplasty and different types of total shoulder arthroplasty including resurfacing versus standard stemmed humeral components were reviewed. The risks, and benefits, and potential complications and limitations from both operative and nonoperative management were reviewed, including but not limited to infection, neurovascular injury, continued pain, arthritis, progression of arthritis, nonhealing and retearing and progression of any rotator cuff tears, postoperative stiffness, weakness and pain, fractures, instability, dislocations, bone loss, component failure and loosening, and the potential need for revision shoulder surgery, as well as the need for postoperative immobilization was reviewed with him preoperatively, and I believe all of his questions and concerns were answered and he elected to proceed with the left shoulder surgery. NARRATIVE: The patient was taken to the operating room after proper patient identification and informed consent. He was given IV antibiotics preoperatively. He was given general anesthesia and intubated without difficulty. He was placed on the operating table in the modified beach chair position using the TENET shoulder table and Spider arm huynh. The head and neck were in neutral position and well secured to the table. Left shoulder was exposed and examined under anesthesia. There was no significant atrophy. He had very limited passive motion with significant crepitation with about 10 degrees of external rotation with the arm at the side, about 40 degrees of abduction and about 60 degreesof flexion. With the arm abducted he had very limited internal and external rotation. The left shoulder and arm were then prepped and draped in the usual sterile fashion. An anterior deltopectoral approach was used. The incision was carried down to subcutaneous tissue. Cephalic vein was identified and retracted laterally with the deltoid using a Brown retractor. Upper 3 to 4 mm of the pectoralis major insertion on the humerus was released. The conjoined tendon was identified. Clavipectoral fascia was released. Conjoined tendon and pectoralis major were then retracted medially. The subscapularis tendon was robust and intact. The biceps tendon was identified. It was tagged at the superior portion of the bicipital groove, and then released and later tenodesed in the repair. Rotator interval was opened up with curved Rod scissors down to the base of the coracoid. Electrocautery was used to skeletonize the inferior and lateral aspect of the lesser tuberosity. A lesser tuberosity osteotomy was then performed with 1/2 inch curved osteotome. Four #2 FiberWire sutures were then placed around the subscapularis tendon incorporating the lesser tuberosity bone using modified Enmanuel-Ortiz suture technique, as well as horizontal mattress technique. The arm was then externally rotated and the anterior capsule was then released using electrocautery down along the humeral neck andalong the very large humeral osteophytes inferiorly. Korey retractor was placed inferiorly for protection of the axillary nerve. The arm was further externally rotated. All the osteophytes were removed using a large rongeur. The Korey retractors and Servin were used to get into the posterior inferior aspect and around the backside of the humeral head. All the osteophytes were carefully removed and the anatomic neck was identified. There was no remaining cartilage on the humeral head, which was somewhat flattened. This was then sized for a 46 mm humeral resurfacing cap implant. This guidepin was then placed with the appropriate neck shaft angle and retroversion. The appropriate 46 mm reamer was then used over the guidepin. The trial implant was placed and found to have excellent fit and coverage. Further osteophytes were removed using the small rongeur. Posterior superior rotator cuff was intact and protected with Hohmann retractor posteriorly and superiorly with the Brown retractor. I was very happy with the position of the trial implant. The trial implant was then removed. The thin cutting guide was used over the guidewire. The guidewire was then removed. The glenoid was then exposed with the large Fukuda retractor posteriorly and the anterior glenoid retractor anteriorly. There was a thickened robust anterior and anterior inferior capsule that was excised. There was no remaining cartilage on the glenoid. There was no significant glenoid bone loss. The entire capsule, and biceps stump and labrum were excised. The glenoid was then sized for a 48 mm Affinity glenoid. The sizing guide was then used to create the central airline pilot flight instructor hole. The drill was then used, followed by the guide, followed by the 48 mm reamer. The guide for the peripheral peg holeswas then used. The trial implant was then placed, and this was 48 Affinity trial implant and this was positioned on the scapula, and impacted in position and had excellent fit, and stability and coverage. The trial implant was then removed. A 2 mm drill bit was used to create 4 or 5 small holes in the periphery of the glenoid and the hard eburnated bone. The permanent component was then prepared.This was the 48 mm Affinity glenoid with some bone graft from the central peg hole reamings that were placed around this central peg. Polymethyl methacrylate cement with methylene blue dye was then mixed, and a small amount was placed on the backside of the permanent component, and the wound was copiously irrigated with the pulse lavage and then dried and cement was then placed into the peripheral peg holes. The permanent glenoid component was then placed on the scapula in the appropriate position and impacted. All the excess cement around the periphery was excised. The glenoid was held in place under pressure until the cement polymerized. The wound was then copiously irrigated again with the pulse lavage. The glenoid was found to be in excellent position and very secure to the scapula. The retractors were then carefully removed. The axillary nerve was intact. The arm was then externally rotated, and the Korey retractors were placed posteriorly and inferiorly and the Brown retractor was re-placed posterolaterally for re- exposure of the humerus. The permanent 46 mm humeral cap wasthen impacted onto the humerus. It had excellent stability, and fit and coverage. The posterior superior rotator cuff was intact. The arm was then internally rotated. The wound was copiously irrigated again with the pulse lavage. There was adequate hemostasis. Subscapularis tendon with the lesser tuberosity bone was then reapproximated over the osteotomy site, and the previously placed sutures were passed through the osteotomy site and out under the bicipital groove through the lateral humeral proximal cortex. These were then tied down laterally over a 7- hole Synthes titanium button plate. The rotator interval was closed with #2 FiberWire suture with the arm abducted about 30 degrees and externally rotated about 30 degrees. Biceps tendon was tenodesed in the upper portion of the bicipitalgroove using this same suture. The arm was then taken out of the arm huynh and put through a rangeof motion and everything was moving well as a unit including the anterior, and posterior and superior rotator cuff and biceps tendon. It was very smooth and had much-improved motion, about 150 degrees of flexion, about 90 degrees of abduction, about 75 to 80 degrees of external rotation with the arm abducted and about 60 degrees of internal rotation with the arm abducted. With the arm at the side, I could easily externally rotate him about 65 to 70 degrees without excessive tension on the repair. The wound was copiously irrigated again. The cephalic vein was intact. The deltopectoral intervalwas reapproximated but not closed. Subcutaneous layer was closed with 2- 0 and 3-0 Vicryl sutures and the skin was closed with a running 4-0 Prolene suture. About 45 mL of 0.5% ropivacaine was then placed locally around the left shoulder including the wound, and subacromial space and suprascapular notch area. The wound was then covered with Xeroform dressing, sterile 4 x 4s, ABD pad and Microfoam tape. Postoperative AP and axillary x-rays were obtained revealing anatomic positioning of the totalshoulder components with a well located joint and no obvious fractures. Sterile TENS unit leads were then placed around the left shoulder. A Cryo/Cuff was placed over the left shoulder and the left arm was placed into an UltraSling. He was then extubated and brought to the recovery room in stable condition. There were no perceived complications of the case and I was present and scrubbed for the entire case. 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 Hehad extremely large anterior, and inferior and posterior osteophytes. The axillary nerve was intactfollowing the dissection. ESTIMATED BLOOD LOSS: About 300 mL. He tolerated procedure well, was brought to the recovery room in stable condition. Unless otherwise noted, there were no complications, no blood loss, no cultures obtained, no specimens removed, and no drains retained. Flex Aaron MD 08 04 PM / Flex Aaron MD ss Confirmation: [id number] Dictation ID: [id number] * Anesthesia Procedure Notes - RESIDENT ASSISTANT CNA, SCAN 2 - 11/06/2012 1155 EST * OR PreOp - RESIDENT ASSISTANT CNA, SCAN 2 - 11/06/2012 1150 EST * Anesthesia Preprocedure Evaluation - RESIDENT ASSISTANT CNA, SCAN 2 - 11/06/2012 0847 EST documented in this encounter Miscellaneous Notes * Scanned Note-Null - RESIDENT ASSISTANT CNA, SCAN 2 - 11/12/2012 0630 EST * Scanned Note-Null - RESIDENT ASSISTANT CNA, SCAN 2 - 11/12/2012 0630 EST * Anesthesia Post-Eval - Wolfgang Dowling CRNA - 11/07/2012 0928 EST Post Anesthesia Evaluation Date of Service: 11/07/2012 The patient has been evaluated and assessed. If present, post anesthetic events are documented below. The last set of recorded vital signs and pain rating were reviewed: BP: 140/81 mmHg (11/07/12912), Pulse: 84 (11/07/12912),Numeric Pain Level (Scale 1-10): 2 Procedure detail: Anesthesia Type: General Level of Consciousness: Awake;Oriented Vital Signs: Stable Post Op Pain: Taking PO/IV pain meds with good effect Additional follow up needed: No Perioperative events: General Events: None Recall: Absent Wolfgang Dowling CRNA 11/07/2012 9:28 * Plan of Care - Nadine Wells RN - 11/07/2012 0322 EST Problem: PAIN Goal: Patient???s Pain And Discomfort Are Adequately Managed Data: Pt reports pain of 5/10 on numeric pain scale. Action: Administered 4mg Dilaudid as prescribed PRN. Filled cryocuff with ice. Assisted pt with positioning of left arm for comfort. Response: Pt pain remained at 5/10 on numeric pain scale. Administered 50mg of Tramadol as ordered PRN. Upon reassessment, pt sleeping comfortably. Call frank within reach. Will continue to monitor. Nadine Wells RN 11/07/2012 3:17 * Anesthesia Post-Eval - Eliecer Braswell MD - 11/06/2012 1402 EST Post Anesthesia Evaluation Note Date of Service: 11/06/2012 Mario Curry, a 57 y.o. year old male has received General Anesthesia He has been evaluated, assessed and discharged from anesthesia care with stable cardiorespiratory function and alert mentalstatus. The last set of recorded vital signs and pain rating were reviewed: Temp: 36.2 ??C (97.2 ??F) (11/06/12 1315), Heart Rate: 86 BPM (11/06/12 1345), BP: 131/89 mmHg (11/06/12 1345), Resp: 11 (11/06/12 1345), SpO2: 98 % (11/06/12 1345),Numeric Pain Level (Scale 1-10): 3 Mario Curry participated in this evaluation unless otherwise noted. His pain, nausea and vomiting have been managed and his body temperature and fluid balance have been restored. Additional monitoring and assessment needs have been addressed. If present, any postoperative events are documented below. If the regional block for postoperative analgesia was intended to last greater than 48 hours, Mario Curry will be followed by the Acute Pain Service. Eliecer Braswell MD 11/06/2012 14:02 * Brief Op Note - Valorie Ruiz PA - 11/06/2012 1140 EST Brief Post-Op Note Date of Surgery: 11/06/2012 Surgeon: Dr.John Maura DANIELLE Assistants: Emeka SOUTH Pre-Op Diagnosis: Left shoulder DJD Post-Op Diagnosis: Left shoulder DJD Procedure(s): Left shoulder TSA Findings: see fully dictated note Anesthesia Type: General, Local and IV Sedation Estimated Blood Loss: Unless otherwise noted, there was no blood loss, specimens removed, cultures obtained, or drains retained. The estimated blood loss was 250 Fluids: Mario Curry received Crystalloids 1 L of fluid replacement. Urine Output: Specimens/Cultures: None Drains/Packs: None Complications: None Disposition and Condition: Mario Curry was sent to PACU in Stable condition. AKOSUA PORTILLO 11/06/2012 11:41 * Scanned Note-Null - RESIDENT ASSISTANT CNA, SCAN 2 - 11/06/2012 0646 EST * Scanned Note-Null - RESIDENT ASSISTANT CNA, SCAN 2 - 11/06/2012 0646 EST documented in this encounter Plan of Treatment Not on file documented as of this encounter Procedures Procedure Name Priority Date/Time Associated Diagnosis Comments IMPLANT RECORD - SCANNED 11/12/2012 6:30 EST ECG REPORT - SCANNED 11/12/2012 6:30 EST COMPLETE BLOOD COUNT Routine 11/07/2012 5:27 EST BUN Routine 11/07/2012 5:27 EST CREATININE Routine 11/07/2012 5:27 EST ELECTROLYTES Routine 11/07/2012 5:27 EST SHOULDER 2 OR MORE VIEWS Routine 11/06/2012 11:43 EST PREPARE RED BLOOD CELLS Routine 11/06/2012 7:18 EST TYPE AND SCREEN Routine 11/06/2012 7:18 EST documented in this encounter Results * IMPLANT RECORD - SCANNED (11/12/2012 6:30 EST) 11/12/2012 6:30 EST Narrative 11/12/2012 6:40 EST Procedure Note RESIDENT ASSISTANT CNA, SCAN 2 - 11/12/2012 6:30 EST us Scan 2 Mechanical Apprentice PROCEDURE/MINOR SURGICAL OR DERABLES Final Result * ECG REPORT - SCANNED (11/12/2012 6:30 EST) 11/12/2012 6:30 EST Narrative 11/12/2012 6:40 EST Procedure Note RESIDENT ASSISTANT CNA, SCAN 2 - 11/12/2012 6:30 EST us Scan 2 Mechanical Apprentice PROCEDURE/MINOR SURGICAL OR DERABLES Final Result * (ABNORMAL) HEMAGRAM (11/07/2012 5:27 EST) WBC 10.17 4.0 - 10.4 K/cmm [facility] RBC 4.40 4.36 - 5.78 M/cmm [facility] Hemoglobin 14.3 13.8 - 17.3 gm/dl [facility] HCT 41.7 39.5 - 50.2 % [facility] MCV 95 81 - 95 fl [facility] MCH 32.4 27.6 - 33.0 pg [facility] MCHC 34.3 32.8 - 36.4 gm/dl [facility] PLT 148 141 - 320 K/cmm [facility] RDW-CV 14.3(H) 11.8 - 14.1 % [facility] Blood specimen (specimen) 11/07/2012 5:27 EST 11/07/2012 6:15 EST Valorie Hopkins-C HEMATOLOGY & PF4 ORDERAB LES Final Result Performing Organization Address [facility] Co de Phone Number [facility] [address] [place] [address] * CREATININE (11/07/2012 5:27 EST) Creatinine 0.72 0.66 - 1.25 mg/dl [facility] GFR, Calculated >60 >60 ml/min/1.7 3m2 [facility] Blood specimen (specimen) 11/07/2012 5:27 EST 11/07/2012 6:15 EST Valorie Hopkins-C CHEMISTRY & BLOOD GAS OR DERABLES Final Result Performing Organization Address [facility] Phone Number [facility] [address] [place] [address] * BUN (11/07/2012 5:27 EST) BUN 17 10 - 26 mg/dl [facility] Blood specimen (specimen) 11/07/2012 5:27 EST 11/07/2012 6:15 EST Valorie Hopkins-C CHEMISTRY & BLOOD GAS OR DERABLES Final Result Performing Organization Address [facility] de Phone Number [facility] [address] [place] [address] * ELECTROLYTES (11/07/2012 5:27 EST) Sodium 138 136 - 145 mEq/L [facility] Potassium 4.2 3.5 - 5.0 mEq/L [facility] Chloride 101 96 - 110 mEq/L [facility] CO2 27 24 - 32 mEq/L [facility] Blood specimen (specimen) 11/07/2012 5:27 EST 11/07/2012 6:15 EST Vaolrie Hopkins-C CHEMISTRY & BLOOD GAS OR DERABLES Final Result [facility] [address] [place] [address] * SHOULDER 2 OR MORE VIEWS (11/06/2012 11:43 EST) Anatomical Region Laterality Modality Other 11/06/2012 11:4 3 EST 11/06/2012 17:10 EST Narrative 11/06/2012 17:10 EST SHOULDER 2 OR MORE VIEWS - Nov 06, 2012 11:43:00 AM Signs and Symptoms/Comments: ??Osteoarthritis of left shoulder, s/p left hemiarthroplasty, routine post op for no count, r/o check hardware/FB. Technique: ??Two views of the left shoulder. Comparison: ??July 23, 2012. Findings: ??The patient is status post resurfacing arthroplasty of the left glenohumeral joint. The humeral head component is identified and shows no evidence of loosening. A small metallic plate is identified at the greater tuberosity. A small metallic clip is identified in the region of the glenoid neck. There is postsurgical soft tissue emphysema and edema. There are no erroneously retained surgical instruments. Procedure Note 11/06/2012 SHOULDER 2 OR MORE VIEWS - Nov 06, 2012 11:43:00 AM Signs and Symptoms/Comments: Osteoarthritis of left shoulder, s/p left hemiarthroplasty, routine post op for no count, r/o check hardware/FB. Technique: Two views of the left shoulder. Comparison: July 23, 2012. Findings: The patient is status post resurfacing arthroplasty of the left glenohumeral joint. The humeral head component is identified and shows no evidence of loosening. A small metallic plate is identified at the greater tuberosity. A small metallic clip is identified in the region of the glenoid neck. There is postsurgical soft tissue emphysema and edema. There are no erroneously retained surgical instruments. us Flex Aaron MD IMG DIAGNOSTIC IMAGING ORDERABLE S Final Result * TYPE AND SCREEN (11/06/2012 7:18 EST) ABO A [facility] Rh Factor Positive [facility] Antibody Screen Negative [facility] Comment:SAMPLE EXPIRES ON @ 23:59 11/06/2012 7:18 EST us Provider Unknown BLOOD BANK TESTS Final Resul t Performing Organization Address [facility] Co de Phone Number [facility] [address] [place] [address] * PREPARE RED BLOOD CELLS (11/06/2012 7:18 EST) Product Code -3 RED BLOOD CELLS,ADENINE- SALINE ADDED,LEUKOCYT ES REDUCED [facility] Donor Number [id number] [facility] Unit ABO A [facility] Unit Rh POS [facility] Cross Match Interp Compatible [facility] Unit Status Released From Crossmatch [facility] 11/06/2012 7:18 EST Provider Unknown BLOOD BANK ORDERABLES Final Result Performing Organization Address [facility] de Phone Number [facility] [address] [place] [address] documented in this encounter Visit Diagnoses Diagnosis Unspecified polyarthropathy or polyarthritis, shoulder region Unspecified polyarthropathy or polyarthritis, shoulder region documented in this encounter Administered Medications Inactive Administered Medications - up to 3 most recent administrations Medication Order MAR Action Action Date Dose Rate Site acetaminophen (TYLENOL) tablet 1,000 mg 1,000 mg, oral, PRE-OP ONCE, 1 dose, On Renata 11/06/12 at 0745, Routine, Pre Op Day of Surgery Given 11/06/2012 7:36 EST 1,000 mg acetaminophen (TYLENOL) tablet 650 mg 650 mg, oral, EVERY 4 HOURS PRN, Starting on Renata 11/06/12 at 1256, Until 11/07/12 at 1457, Pain, Routine, On Unit Given 11/07/2012 10:58 EST 650 mg Given 11/07/2012 6:37 EST 650 mg Given 11/06/2012 13:08 EST 650 mg aspirin EC tablet 325 mg 325 mg, oral, DAILY, First dose on Renata 11/06/12 at 1245, Until Discontinued, Routine Given 11/07/2012 9:15 EST 325 mg Given 11/06/2012 14:05 EST 325 mg ceFAZolin (ANCEF) 1,000 mg in sodium chloride 0.9 % 50 mL IVPB 1,000 mg, intravenous, Administer over 30 Minutes, NOW X1, 1 dose, On Renata 11/06/12 at 1245, Routine, Recovery (only) Given 11/06/2012 12:51 EST 1,000 mg ceFAZolin (ANCEF) 1,000 mg in sodium chloride 0.9 % 50 mL IVPB 1,000 mg, intravenous, Administer over 30 Minutes, EVERY 8 HOURS, 2 doses, First dose on Renata 11/06/12 at 2000, Last dose on Sat11/07/12 at 0400, Routine, On Unit Given 11/07/2012 3:51 EST 1,000 mg Given 11/06/2012 20:56 EST 1,000 mg ceFAZolin (ANCEF) syringe 2 g 2 g, intravenous, Administer over 10 Minutes, PRE-OP ONCE, 1 dose, On Renata 11/06/12 at 0745, Routine, Pre Op Day of Surgery Given by Other 11/06/2012 9:20 EST 2 g celecoxib (CELEBREX) capsule 200 mg 200 mg, oral, PRE-OP ONCE, 1 dose, On Renata 11/06/12 at 0745, Routine, Pre Op Day of Surgery Given 11/06/2012 7:36 EST 200 mg diphenhydrAMINE (BENADRYL) injection 6.25 mg 6.25 mg, intravenous, PRN, 2 doses, Starting on Renata 11/06/12 at 1128, Until Renata 11/06/12 at 1451, nausea, Routine, Recovery (only) Given 11/06/2012 14:05 EST 6.25 mg divalproex (DEPAKOTE) ER tablet 1,500 mg 1,500 mg, oral, AT BEDTIME, First dose on Renata 11/06/12 at 2100, Until Discontinued, Routine Given 11/06/2012 20:57 EST 1,500 mg docusate sodium (COLACE) capsule 200 mg 200 mg, oral, 2 TIMES DAILY, First dose on Renata 11/06/12 at 2100, Until Discontinued, Routine, On Unit Given 11/07/2012 9:15 EST 200 mg Given 11/06/2012 20:57 EST 200 mg fentanyl citrate (PF) 50 mcg/mL injection 25-100 mcg 25-100 mcg, intravenous, EVERY 5 MIN PRN, Starting on Renata 11/06/12 at 1128, Until Renata 11/06/12 at 1451, Pain, Routine, Recovery (only) Given 11/06/2012 13:08 EST 50 mcg hydrochlorothiazide (HYDRODIURIL) tablet 12.5 mg 12.5 mg, oral, DAILY, First dose on Renata 11/06/12 at 1245, Until Discontinued, Routine Given 11/07/2012 9:15 ES T 12.5 mg HYDROmorphone (DILAUDID) tablet 2-6 mg 2-6 mg, oral, EVERY 3 HOURS PRN, Starting on Renata 11/06/12 at 1256, Until Sat11/07/12 at 1457, Pain, Routine, On Unit Given 11/07/2012 10:58 EST 4 mg Given 11/07/2012 5:33 EST 6 mg Given 11/07/2012 1:21 EST 4 mg lactated ringers (LR) infusion at 25 mL/hr, intravenous, CONTINUOUS, Starting on Renata 11/06/12 at 0745, Until Renata 11/06/12 at 1035, Routine, Pre Op Day of Surgery New Bag 11/06/2012 7:35 EST 25 mL/hr lactated ringers (LR) infusion at 125 mL/hr, intravenous, CONTINUOUS, Starting on Renata 11/06/12 at 1100, Until Sat11/07/12 at 1457, Routine, Pre Op Day of Surgery Rate Documented 11/06/2012 12:50 EST 125 mL/h r ondansetron (PF) (ZOFRAN) injection 2 mg 2 mg, intravenous, PRN, 1 dose, Starting on Renata 11/06/12 at 1128, Until Renata 11/06/12 at 1308, Nausea, Vomiting, Routine, Recovery (only) Given 11/06/2012 13:08 EST 2 mg oxycodone (OXYCONTIN) CR tablet 10 mg 10 mg, oral, PRE-OP ONCE, 1 dose, On Renata 11/06/12 at 0745, Routine, Pre Op Day of Surgery Given 11/06/2012 7:37 EST 10 mg pantoprazole (PROTONIX) tablet 40 mg 40 mg, oral, DAILY, First dose on Renata 11/06/12 at 1545, Until Discontinued, Routine Given 11/07/2012 9:15 EST 40 mg pregabalin (LYRICA) capsule 100 mg 100 mg, oral, PRE-OP ONCE, 1 dose, On Renata 11/06/12 at 0745, Routine, Pre Op Day of Surgery Given 11/06/2012 7:36 EST 100 mg sodium chloride 0.9 % with KCl 20 mEq/L infusion at 100 mL/hr, intravenous, CONTINUOUS, Starting on Renata 11/06/12 at 1245, Until Sat11/07/12 at 1457, Routine, On Unit Rate Documented 11/07/2012 4:00 EST 100 mL/hr New Bag 11/07/2012 0:23 EST 100 mL/hr Rate Documented 11/06/2012 21:49 EST 100 mL/hr tramadol (ULTRAM) tablet 50 mg 50 mg, oral, EVERY 6 HOURS PRN, Starting on Renata 11/06/12 at 1504, Until 11/07/12 at 1457, Pain, Routine Given 11/07/2012 2:45 EST 50 mg documented in this encounter Discontinued Medications Medication Sig Discontinue Reason Start Date End Da te divalproex (DEPAKOTE) 500 mg ER tablet Take 3 Tabs by mouth daily. Brand name Error 07/24/2012 10/28/2012 simvastatin (ZOCOR) 40 mg tablet Take 1 Tab by mouth daily. Error 07/24/2012 10/28/2012 naproxen (NAPROSYN) 500 mg tablet Take 1 Tab by mouth 2 times daily with breakfast and dinner. 09/03/2012 11/06/2012 Cod Liver Oil Cap Take 1 Cap by mouth 2 times daily. 01/16/2011 11/07/2012 GLUCOSAMINE [id number] ORAL Take 1 Tab by mouth daily. Pt varies dosing 11/07/2012 documented as of this encounter Historical Medications * This list may reflect changes made after this encounter. simvastatin (ZOCOR) 40 mg tablet Take 40 mg by mouth every evening. 07/17/2013 divalproex (DEPAKOTE) 500 mg delayed release tablet Take 500 mg by mouth at bedtime. 3 tablets,tota l of 1500 mg 07/17/2013 added in this encounter Active and Recently Administered Medications Times are shown in EST. Scheduled Medication Order 11/05/2012 11/06/201211/0711/07/2012 acetaminophen (TYLENOL) tablet 1,000 mg (COMPLETED) 1,000 mg, oral, PRE-OP ONCE, 1 dose, On Renata 11/06/12 at 0745, Routine, Pre Op Day of Surgery 0736 (Given - Provider: Caitlin Callahan, KALYANI) aspirin EC tablet 325 mg (CANCELED) 325 mg, oral, DAILY, First dose on Renata 11/06/12 at 1245, Until Discontinued, Routine 1405 (Given - Provider: Roxanna Art RN) 0915 (Given - Provider: Yashira Salazar RN) ceFAZolin (ANCEF) 1,000 mg in sodium chloride 0.9 % 50 mL IVPB (COMPLETED) 1,000 mg, intravenous, Administer over 30 Minutes, NOW X1, 1 dose, On Renata 11/06/12 at 1245, Routine, Recovery (only) 1251 (Given - Provider: Roxanna Art RN) ceFAZolin (ANCEF) 1,000 mg in sodium chloride 0.9 % 50 mL IVPB (COMPLETED) 1,000 mg, intravenous, Administer over 30 Minutes, EVERY 8 HOURS, 2 doses, First dose on Renata 11/06/12 at 2000, Last dose on Sat11/07/12 at 0400, Routine, On Unit 2056 (Given - Provider: Nadine Wells RN) 0351 (Given - Provider: Nadine Wells RN) ceFAZolin (ANCEF) syringe 2 g (COMPLETED) 2 g, intravenous, Administer over 10 Minutes, PRE-OP ONCE, 1 dose, On Renata 11/06/12 at 0745, Routine, Pre Op Day of Surgery 0920 (Given by Other - Provider: Mihir Monaco RN - Comment: Given By Otoniel Bright) celecoxib (CELEBREX) capsule 200 mg (COMPLETED) 200 mg, oral, PRE-OP ONCE, 1 dose, On Renata 11/06/12 at 0745, Routine, Pre Op Day of Surgery 0736 (Given - Provider: Caitlin Callahan, KALYANI) divalproex (DEPAKOTE) ER tablet 1,500 mg (CANCELED) 1,500 mg, oral, AT BEDTIME, First dose on Renata 11/06/12 at 2100, Until Discontinued, Routine 2056 (Given - Provider: Nadine Wells, KALYANI) docusate sodium (COLACE) capsule 200 mg 200 mg, oral, 2 TIMES DAILY, First dose on Renata 11/06/12 at 2100, Until Discontinued, Routine, On Unit 2056 (Given - Provider: Nadine Wells RN) 0915 (Given - Provider: Yashira Salazar, RN) hydrochlorothiazide (HYDRODIURIL) tablet 12.5 mg (CANCELED) 12.5 mg, oral, DAILY, First dose on Renata 11/06/12 at 1245, Until Discontinued, Routine 1612 (Not Given - Provider: Zoey Rocha - Reason: Patient off unit) 0915 (Given - Provider: Yashira Salazar, RN) oxycodone (OXYCONTIN) CR tablet 10 mg (COMPLETED) 10 mg, oral, PRE-OP ONCE, 1 dose, On Renata 11/06/12 at 0745, Routine, Pre Op Day of Surgery 0737 (Given - Provider: Caitlin Callahan, KALYANI) pantoprazole (PROTONIX) tablet 40 mg (CANCELED) 40 mg, oral, DAILY, First dose on Rneata 11/06/12 at 1545, Until Discontinued, Routine 1611 (Not Given - Provider: Zoey Rocha - Reason: Other - Comment: morning med) 0915 (Given - Provider: Yashira Salazar, KALYANI) pregabalin (LYRICA) capsule 100 mg (COMPLETED) 100 mg, oral, PRE-OP ONCE, 1 dose, On Renata 11/06/12 at 0745, Routine, Pre Op Day of Surgery 0736 (Given - Provider: Caitlin Callahan, KALYANI) Continuous Medication Order 11/05/2012 11/06/2012 11/07/2012 lactated ringers (LR) infusion (CANCELED) at 25 mL/hr, intravenous, CONTINUOUS, Starting on Renata 11/06/12 at 0745, Until Renata 11/06/12 at 1035, Routine, Pre Op Day of Surgery 0735 (New Bag - Provider: Caitlin Callahan, KALYANI) lactated ringers (LR) infusion (CANCELED) at 125 mL/hr, intravenous, CONTINUOUS, Starting on Renata 11/06/12 at 1100, Until Sat11/07/12 at 1457, Routine, Pre Op Day of Surgery 1250 (Rate Documented - Provider: Roxanna Art RN)1350 (Completed - Provider: Roxanna Art RN) sodium chloride 0.9 % with KCl 20 mEq/L infusion (CANCELED) at 100 mL/hr, intravenous, CONTINUOUS, Starting on Renata 11/06/12 at 1245, Until 11/07/12 at 1457, Routine, On Unit 1350 (New Bag - Provider: Roxanna Art RN)1943 (Rate Documented - Provider: Nadine Wells RN)2149 (Rate Documented - Provider: Nadine Wells RN) 0023 (New Bag - Provider: Nadine Wells RN)0400 (Rate Documented - Provider: Nadine Wells RN)0707 (Completed - Provider: Yashira Salazar RN) PRN Medication Order 11/05/2012 11/06/2012 11/07/2012 acetaminophen (TYLENOL) tablet 650 mg 650 mg, oral, EVERY 4 HOURS PRN, Starting on Renata 11/06/12 at 1256, Until 11/07/12 at 1457, Pain, Routine, On Unit 1308 (Given - Provider: Roxanna Art RN) 0637 (Given - Provider: Nadine Wells RN)1058 (Given - Provider: Yashira Salazar, KALYANI) diphenhydrAMINE (BENADRYL) injection 6.25 mg (CANCELED) 6.25 mg, intravenous, PRN, 2 doses, Starting on Renata 11/06/12 at 1128, Until Renata 11/06/12 at 1451, nausea, Routine, Recovery (only) 1405 (Given - Provider: Roxanna Art RN - Comment: slight nausea no emisis) fentanyl citrate (PF) 50 mcg/mL injection 25-100 mcg (CANCELED) 25-100 mcg, intravenous, EVERY 5 MIN PRN, Starting on Renata 11/06/12 at 1128, Until Renata 11/06/12 at 1451, Pain, Routine, Recovery (only) 1308 (Given - Provider: Roxanna Art RN) HYDROmorphone (DILAUDID) tablet 2-6 mg 2-6 mg, oral, EVERY 3 HOURS PRN, Starting on Renata 11/06/12 at 1256, Until 11/07/12 at 1457, Pain, Routine, On Unit 1308 (Given - Provider: Roxanna Art, KALYANI)1929 (Given - Provider: Nadine Wells RN) 0121 (Given - Provider: Nadine Wells, KALYANI)0533 (Given - Provider: Nadine Wells, KALYANI)1058 (Given - Provider: Yashira Salazar RN) ondansetron (PF) (ZOFRAN) injection 2 mg (COMPLETED) 2 mg, intravenous, PRN, 1 dose, Starting on Renata 11/06/12 at 1128, Until Renata 11/06/12 at 1308, Nausea, Vomiting, Routine, Recovery (only) 1308 (Given - Provider: Roxanna Art RN) tramadol (ULTRAM) tablet 50 mg (CANCELED) 50 mg, oral, EVERY 6 HOURS PRN, Starting on Renata 11/06/12 at 1504, Until 11/07/12 at 1457, Pain, Routine 0245 (Given - Provid er: Nadine Wells RN) documented in this encounter Orders Medications Ordered That Min ht Not Have Been Administered Count Last Ordered Date First Ordered Date atropine 0.1 mg/mL 10 mL syringe 0.5 mg 1 1 01/07/2012 calcium carbonate (TUMS) 200 mg calcium (500 mg) per chewable tablet Chew 1-2 Tab 1 11/06/2012 diphenhydrAMINE (BENADRYL) e lixir 12.5-25 mg 1 11/06/2012 divalproex (DEPAKOTE) delaye d release tablet 500 mg 1 11/06/2012 HYDROmorphone (PF) (DILAUDID ) 1 mg/mL injection 0.2-1 mg 1 11/06/2012 Multivitamins with Minerals tablet 1 Tab 1 11/06/2012 naloxone (NARCAN) injection 0.2 mg 1 2011 omeprazole (PRILOSEC) capsule 20 mg 1 11/06 ondansetron (PF) (ZOFRAN) injection 2-4 mg 1 11/06/2012 oxycodone (ROXICODONE) immed iate release tablet 5 mg 1 11/06/2012 simvastatin (ZOCOR) tablet 40 mg 1 11/06/20 12 zolpidem (AMBIEN) tablet 5 mg 1 11/06/2012 Nursing Count Last Ordered Date First Orde red Date APPLY WARMING BLANKET 1 11/06/[address] SEQUENTIAL COMPRESSION DEVICE 1 11/06 PT Count Last Ordered Date First Orde red Date PT EVALUATION AND TREAT 1 11/06/2012 Admission Count Last Ordered Date First Orde red Date STATUS: INPATIENT DOSA/DOPA DAY OF SURGERY/PROCEDURE ADMISSION 1 11/06/2012 Transfer Count Last Ordered Date First Orde red Date NOTIFY PPS PATIENT ARRIVAL IN PACU 1 2011 NOTIFY PPS PATIENT TRANSFERRED OUT OF PACU 1 11/06/2012 PPS NOTIFICATION OF PATIENT ARRIVAL ON UNIT 1 11/06/2012 Discharge Count Last Ordered Date First Orde red Date DISCHARGE PATIENT 1 11/07/2012 documented in this encounter Care Teams Political Reporter Relationship Specialty Start Date End Date Roxanna Hannah MD [address] [place] [id number] PCP - General 03/28/09 05/31/20 documented as of this encounter
--- OUTSIDE RECORDS SUMMARY | 2024-10-06 13:50 | XMS_ITS | Encounter Summary ---
Author Organization [facility] Address [address] [place] [address] Care Team Providers Care Statue Maker Name Role Phone Roxanna Hannah MD Primary Care Provider + Reason for Referral * Cardiology (Routine/Next Available) - Closed Specialty Diagnoses / Procedures Referred By Nela bravo Referred To Contact Diagnoses Pre-op exam Procedures EKG 12-LEAD Ariel Houston MD Phone: tel: fax: Referral ID Status Reason Start Date Expiration Date Visits Re quested Visits Authorized [id number] Closed 03/04/2014 1 1 Reason for Visit * Reason Comments Pre-op Exam Patient is here toda y for a pre-op evaluation. Surgery 03/10/[address] Brown Hydrocele Encounter Details Date Type Department Care Team (Late st Contact Info) Description 03/04/2014 14:15 EDT Office Visit [address] [address] Unknown, Provider, Jackie Jenkins MD Huang, Kuang-Ning, MD [address] [place] [address] Hydrocele (Primary Dx); Pre-op exam; Seizure disorder (CMS-HCC); Essential hypertension Discharge Disposition: Auto Discharge Social History Tobacco [...] Sign Reading Time Taken Comments Blood Pressure 144/82 03/04/2014 1406 EDT Pulse 76 03/04/2014 1406 EDT Temperature 36.7 ??C (98 ??F) 03/04/2014 1406 EDT Respiratory Rate 16 03/04/2014 1406 EDT Oxygen Saturation - - Inhaled Oxygen Concentration - - Weight 107 kg (236 lb) 03/04/2014 1406 EDT Height 174.6 cm (5' 8.75) 03/04/2014 1406 EDT Body Mass Index 35.11 03/04/2014 1406 EDT documented in this encounter Mental Status * Because of a physical, mental, or emotional condition, do you have serious difficulty concentrating, remembering, or making decisions? (5 years old or older) Answer Entry Date Author Yes 11/06/2012 16:17 EST Vaishali Rocha documented in this encounter Discharge Diagnoses Diagnosis 603.9 HYDROCELE NOS[ICD-9-CM] V72.84 PREOP EXAM OTHER UNSPECIFIED[ICD-9-CM] 345.90 EPILEPSY NOS W/O MENTN INTRACTABLE[ICD-9-CM] 401.9 HYPERTENSION NOS[ICD-9-CM] documented in this encounter Discharge Disposition Disposition Code Departure Means Destination Auto Discharge documented in this encounter Progress Notes * Jackie Bates MD - 03/04/2014 2010 EDT Attestation statement for office patient seen by attending: I saw and examined the patient on the day of this service and agree with the findings and plan of care documented in the resident's/fellow's note. Jackie Bates MD Family Medicine Attending 03/04/2014 20:10 * Ariel Houston MD - 03/04/2014 1739 EDT Preoperative H&P Patient ID: Mario Curry is an 58 y.o. male. :1955 Date of Service: 03/04/2014 Chief Complaint: Chief Complaint Patient presents with ??? Pre-op Exam Patient is here today for a pre-op evaluation. Surgery 03/10/[address] Brown ??? Hydrocele Planned Procedure: Right Hydrocoelectomy Surgeon: Dr. Brown Planned Procedure Date: March 10, 2014 Problem List Available or Initiated: yes Subjective: HISTORY OF PRESENT ILLNESS: R hydrocele. Has been there over a year. Getting larger. Causing more pain. Only on right. Nothing is helping. Has decided to move ahead with surgery. Here for preop eval. Had a minor cold 1 week prior, now resolved PMHx significant for seizures, has been stable of Depakote. Last Seizure >10 years prior -no tobacco use -no alcohol use -no recreational drug use Cardiovascular or pulmonary risk factors: hypertension or hypercholesterolemia/hyperlipidemia (on medications. BP mildly elevated today, but also did miss one dose of HCTZ. BP typically under decent control. On review of prior BPs in the office, average 130s/80s Prior h/o of anesthetic complications: No. Had shoulder surgery in 2011, no anesthetic complications. Prior h/o bleeding problems: no Prior h/o DVT/PE: no Prior h/o infections (VRE, MRSA): no Reaction to tape or latex: no Family history of anesthetic complications, bleeding problems or DVT/PE: adopted, uncertain family history Patient Active Problem List Diagnosis ??? Routine history and physical examination of adult ??? Seizure disorder ??? Gastroesophageal reflux disease ??? Essential Hypertension ??? Hyperlipidemia ??? Allergic Rhinitis ??? Abnormal Glucose Tolerance Test ??? Male erectile disorder ??? Atypical chest pain ??? Impaired glucose tolerance ??? Depression ??? Anxiety ??? Impaired glucose tolerance ??? Unspecified polyarthropathy or polyarthritis, shoulder region Past Medical History Diagnosis Date ??? Erectile dysfunction ??? Abnormal glucose tolerance test 03/09/2009 ??? Allergic rhinitis 03/19/2007 ??? Hyperlipidemia 01/31/2005 ??? Essential hypertension 10/24/2004 ??? Seizure disorder 08/05/2002 ??? Routine general medical examination at health care facility 08/05/2002 ??? GERD (gastroesophageal reflux disease) 08/05/2002 ??? Seizures ??? Impaired glucose tolerance 10/03/2011 Past Surgical History Procedure Laterality Date ??? Cholecystectomy R shoulder yael Dr. Terence Johnson ??? Shoulder surgery s/p dislocation ??? Shoulder arthroplasty 10/2012 left History Substance Use Topics ??? Smoking status: Never Smoker ??? Smokeless tobacco: Never Used ??? Alcohol Use: Yes Comment: 2-3 drinks per week Family History Problem Relation Age of Onset ??? Stroke Father ??? Breast Cancer Neg Hx ??? Colon Cancer Neg Hx ??? Colon Polyps Neg Hx ??? Endometrial Cancer Neg Hx ??? Esophageal Cancer Neg Hx ??? Ovarian Cancer Neg Hx ??? Pancreatic Cancer Neg Hx ??? Rectal Cancer Neg Hx ??? Stomach Cancer Neg Hx Allergies Allergen Reactions ??? Tegretol (Carbamazepine) Rash Current Outpatient Prescriptions Medication Sig Dispense Refill ??? acetaminophen (TYLENOL) 650 mg tablet Take 1 Tab by mouth every 4 hours as needed for Pain. ??? aspirin 81 mg EC tablet Take 81 mg by mouth daily. ??? divalproex (DEPAKOTE) 500 mg delayed release tablet Take 3 capsules at bedtime 270 Tab 3 ??? fluticasone (FLONASE) 50 mcg/actuation nasal spray Instill 2 Sprays into both nostrils daily. 16 g 2 ??? hydrochlorothiazide (MICROZIDE) 12.5 mg capsule Take 1 Cap by mouth daily. 90 Cap 3 ??? MULTIVITAMINS (MULTI-VITAMIN ORAL) Take 1 Tab by mouth daily. ??? omeprazole (PRILOSEC) 20 mg capsule TAKE 1 CAPSULE DAILY 90 Cap 3 ??? simvastatin (ZOCOR) 40 mg tablet Take 1 Tab by mouth every evening. 90 Each 3 No current facility-administered medications for this visit. Review of Systems Constitutional: Negative for fever, chills and malaise/fatigue. Eyes: Negative for blurred vision. Respiratory: Negative for shortness of breath and wheezing. Cardiovascular: Negative for chest pain and palpitations. Gastrointestinal: Positive for heartburn and vomiting. Negative for nausea, abdominal pain, diarrhea, constipation, blood in stool and melena. Vomits frequently with exertional exercises +hx of hemorrhoids Genitourinary: Negative for dysuria, urgency and frequency. Neurological: Negative for dizziness, focal weakness and headaches. Endo/Heme/Allergies: Does not bruise/bleed easily. Objective: BP 144/82 Pulse 76 Temp(Src) 36.7 ??C (98 ??F) (Oral) Resp 16 Ht 174.6 cm (68.75) Wt 107.049 kg (236 lb) BMI 35.12 kg/m2 Body mass index is 35.12 kg/(m^2). Physical Exam Constitutional: He is oriented to person, place, and time. He appears well- developed and well-nourished. No distress. HENT: Head: Normocephalic and atraumatic. Mouth/Throat: Oropharynx is clear and moist. No oropharyngeal exudate. Eyes: Conjunctivae are normal. Right eye exhibits no discharge. Left eye exhibits no discharge. No scleral icterus. Neck: Normal range of motion. No tracheal deviation present. No thyromegaly present. Cardiovascular: Normal rate and regular rhythm. Exam reveals no gallop and no friction rub. No murmur heard. Occasional split S1 appreciated Pulmonary/Chest: Effort normal and breath sounds normal. No stridor. No respiratory distress. He has no wheezes. He has no rales. Abdominal: Soft. Bowel sounds are normal. He exhibits no distension. There is no tenderness. Musculoskeletal: He exhibits no edema. Lymphadenopathy: He has no cervical adenopathy. Neurological: He is alert and oriented to person, place, and time. He has normal reflexes. No cranial nerve deficit. He exhibits normal muscle tone. Skin: Skin is warm and dry. He is not diaphoretic. No erythema. Psychiatric: He has a normal mood and affect. His behavior is normal. Thought content normal. EKG: Reviewed by myself and attending Dr. Bates. NSR, no significant changes when compared to prior EKG in 2011. Non specific T-wave changes in isolated lead (V3) Assessment: 1. Hydrocele 2. Pre-op exam 3. Seizure disorder 4. Essential hypertension No contraindications to planned surgery Last blood work completed in . All results WNL at that time. Normal kidney function, no electrolyte abnormalities. Hgb stable. No indication to repeat blood work today. Plan: Patient requires endocarditis prophylaxis (see guideline summary below): no. Perioperative beta-alexus recommendation (see guideline summary below): no - betablocker not indicated. GENERAL PREOP INSTRUCTIONS: Proceed with surgery as planned. No food or liquids the morning of surgery. Call surgeon if develops respiratory illness, fever, or other illness. Already discussed with Primary Surgeon medications to be held morning of surgery Letter sent to requesting surgeon listed above Patient seen and discussed with Dr. Paulo Houston MD 03/04/2014 20:09 Attestation statement for office patient seen by attending: I saw and examined the patient on the day of this service and agree with the findings and plan of care documented in the resident's/fellow's note. Jackie Bates MD Family Medicine Attending 03/04/2014 20:09 documented in this encounter Plan of Treatment Scheduled Orders Name Type Priority Associated Diagnoses Orde r Schedule EKG 12-LEAD ECG Routine Pre-op exam Ordered: 03/04/2014 documented as of this encounter Goals Goal Patient Goal Type Associated Problems Recent Progress Patient-Stated? Author Blood Pressure < 130/80 Blood Pressure Hypertension 130/84(2019 8:53 EST) No Roxanna Hannah MD documented as of this encounter Procedures Procedure Name Priority Date/Time Associated Diagnosis Comments ECG REPORT - SCANNED 03/04/2014 16:53 EDT documented in this encounter Results * ECG REPORT - SCANNED (03/04/2014 16:53 EDT) 03/04/2014 16:5 3 EDT us Scan 2 Restaurant Culinary Manager PROCEDURE/MINOR SURGICAL OR DERABLES Final Result documented in this encounter Visit Diagnoses Diagnosis Hydrocele- Primary Hydrocele, unspecified Pre-op exam Preoperative examination, unspecified Seizure disorder (HCC-CMS) Unspecified epilepsy without mention of intractable epilepsy Essential hypertension Unspecified essential hypertension documented in this encounter Care Teams Statue Maker Relationship Specialty Start Date End Date Roxanna Hannah MD [address] [place] [phone] PCP - General 03/28/09 05/31/20 documented as of this encounter
--- OUTSIDE RECORDS SUMMARY | 2024-10-06 13:50 | XMS_ITS | Encounter Summary ---
Author Organization [facility] Address [address] [place] [address] Care Team Providers Care Respiratory Practitioner Name Role Phone Roxanna Hannah MD Primary Care Provider + Reason for Visit * Reason Comments Labs Only Encounter Details Date Type Department Care Team (Late st Contact Info) Description 08/13/2014 15:45 EDT Nurse Only [address] [address] Unknown, Provider, Nurse, [facility] , RN Seizure disorder ([facility]-HCC) (Primary Dx) Social History Tobacco Use Types [...] in this encounter Progress Notes * Zuly Gaines, ALE - 08/13/2014 1633 EDT Venipuncture performed for Valporic acid leval Per orders of Pretty Hannah MD Diagnosis of 345.90 I was supervised by Davide Phoenix MD who was present and immediately available in the office suite. Zuly Gaines LPN 08/13/2014 16:58 documented in this encounter Plan of Treatment Not on file documented as of this encounter Goals Goal Patient Goal Type Associated Problems Recent Progress Patient-Stated? Author Blood Pressure < 130/80 Blood Pressure Hypertension 130/84(2019 8:53 EST) No Roxanna Hannah MD documented as of this encounter Procedures Procedure Name Priority Date/Time Associated Diagnosis Comments VALPROIC ACID LEVEL Routine 08/13/2014 1 6:33 EDT Seizure disorder (CMS-HCC) documented in this encounter Results * VALPROIC ACID LEVEL (08/13/2014 16:33 EDT) Valproic Acid 84.7 50.0 - 100.0 ug/ml [facility] Blood specimen (specimen) 08/13/2014 16:33 EDT 08/13/2014 19:25 EDT us Roxanna Hannah MD CHEMISTRY & BLOOD GAS OR DERABLES Final Result [facility] [address] [place] [address] documented in this encounter Visit Diagnoses Diagnosis Seizure disorder ([facility])- Primary Unspecified epilepsy without mention of intractable epilepsy documented in this encounter Care Teams Respiratory Practitioner Relationship Specialty Start Date End Date Roxanna Hannah MD [address] [place] [phone] PCP - General 03/28/09 05/31/20 documented as of this encounter
--- OUTSIDE RECORDS SUMMARY | 2024-10-06 13:50 | XMS_ITS | Encounter Summary ---
Author Organization [facility] Address [address] [place] [address] Care Team Providers Care Training Technician Name Role Phone Roxanna Hannah MD Primary Care Provider + Unknown, Provider Primary Care Provider Unava ilRoxanna Bourne MD Primary Care Provider + Rebeca Garcia Primary Care Provider + Reason for Visit * Reason Onset Date Comments Medications Refill 07/02/2014 Encounter Details Date Type Department Care Team (Late st Contact Info) Description 07/02/[address] [facility] Family Medicine [address] [address] Roxanna Hannah MD [address] [place] [phone] Medications Refill Social History Tobacco Use Types [...] * Telephone Encounter - Cleo Castle - 07/05/2014 0836 EDT Per Delbert at [facility] patient has refills on file and is all set * Telephone Encounter - Jasmin Lino, KALYANI - 07/02/2014 0839 EDT Zocor was filled on 10/27/13 for a year, Please validate with the [...] documented as of this encounter Care Teams Training Technician Relationship Specialty Start Date End Date Roxanna Hannah MD [address] [place] [phone] PCP - General 03/28/09 05/31/20 Unknown, Per, [address] [place] [phone] PCP - General 06/01/20 09/11/20 Roxanna Hannah MD [address] [place] [phone] PCP - General Family Medicine - Primary Care 09/12/20 12/08/20 Rebeca Garcia PA [address] [place] [phone] PCP - General 11/25/21 documented as of this encounter
--- OUTSIDE RECORDS SUMMARY | 2024-10-06 13:50 | XMS_ITS | Encounter Summary ---
Author Organization [facility] Address [address] [place] [address] Care Team Providers Care Senior Sales Assistant Name Role Phone Roxanna Hannah MD Primary Care Provider + Reason for Visit * Reason Onset Date Comments Medications Refill 08/22/2012 Encounter Details Date Type Department Care Team (Late st Contact Info) Description 08/22/2012 Refill [facility] Family Medicine [address] [address] Roxanna Hannah MD [address] [place] [phone] Medications Refill Social History Tobacco Use Types [...] Refills Last Filled Start Date End Date naproxen (NAPROSYN) 500 mg tablet Take 1 Tab by mouth 2 times daily with breakfast and dinner. 30 Tab 0 08/22/2012 2 documented in this encounter Miscellaneous Notes * Telephone Encounter - Isaura Ray - 08/22/2012 0946 EDT Name of Medication Naproxen #30 w/ 1 RF Last Refill Date 07/23/12 Last Visit Date 07/23/12 Next Visit Date 09/03/12 Is patient out of medication? Almost Patient states he does not see the specialist until after Thanksgiving and would like enough until then documented in this encounter Plan of Treatment Not on file documented as of this encounter Visit Diagnoses Not on filedocumented in this encounter Discontinued Medications Medication Sig Discontinue Reason Start Date End Da te naproxen (NAPROSYN) 500 mg tablet Take 1 Tab by mouth 2 times daily with breakfast and dinner. Reorder 07/23/2012 08/22/2012 documented as of this encounter Care Teams Senior Sales Assistant Relationship Specialty Start Date End Date Roxanna Hannah MD [address] [place] [phone] PCP - General 03/28/09 05/31/20 documented as of this encounter
--- OUTSIDE RECORDS SUMMARY | 2024-10-06 13:50 | XMS_ITS | Encounter Summary ---
Author Organization [facility] Address [address] [place] [address] Care Team Providers Care Regional Ehs Manager Name Role Phone Roxanna Hannah MD Primary Care Provider + Reason for Visit * Reason Comments Other Encounter Details Date Type Department Care Team (Late st Contact Info) Description 08/27/2013 Refill [facility] Medicine [address] [address] Roxanna Hannah MD [address] [place] [phone] Other Social History Tobacco Use Types Packs/Day [...] Refills Last Filled Start Date End Date omeprazole (PRILOSEC) 20 mg capsule TAKE 1 CAPSULE DAILY 90 Cap 0 08/27/2013 3 documented in this encounter Miscellaneous Notes * Telephone Encounter - Jad Reid - 08/27/2013 1234 EDT Medication(s) Requested: Omeprazole Pharmacy: Last Refill Date: 04/25/13 Last Visit Date: 06/03/13 Next Visit Date: Visit date not found Is patient out of medication? unknown Jad Reid RN 08/27/2013 12:34 Patient's medical record reviewed and medication order validated for accuracy. Refill request approved per Medication Refill Policy. documented in this encounter Plan of Treatment Not on file documented as of this encounter Visit Diagnoses Not on filedocumented in this encounter Discontinued Medications Medication Sig Discontinue Reason Start Date End Da te omeprazole (PRILOSEC) 20 mg capsule TAKE 1 CAPSULE DAILY Reorder 04/25/2013 08/27/2013 documented as of this encounter Care Teams Regional Ehs Manager Relationship Specialty Start Date End Date Roxanna Hannah MD [address] [place] [phone] PCP - General 03/28/09 05/31/20 documented as of this encounter
--- OUTSIDE RECORDS SUMMARY | 2024-10-06 13:50 | XMS_ITS | Encounter Summary ---
Author Organization [facility] Address [address] [place] [address] Care Team Providers Care Unemployment Specialist Name Role Phone Roxanna Hannah MD Primary Care Provider + Reason for Visit * Reason Comments Diarrhea started Saturday nig ht Abdominal Cramping Blood in stool Nausea Emesis Fever Fatigue Encounter Details Date Type Department Care Team (Late st Contact Info) Description 12/24/2013 10:45 EST Office Visit [address] [phone] Unknown, Provider, MD Arthur, Pradeep Michel MD [address] [place] [phone] Abdominal pain (Primary Dx); Viral enteritis Social History Tobacco Use Types Packs/Day Years [...] Reading Time Taken Comments Blood Pressure 130/84 12/24/2013 1058 EST Pulse 76 12/24/2013 1058 EST Temperature 37.1 ??C (98.7 ??F) 12/24/2013 1058 EST Respiratory Rate - - Oxygen Saturation - - Inhaled Oxygen Concentration - - Weight 102.1 kg (225 lb) 12/24/2013 1058 EST Height 174 cm (5' 8.5) 12/24/2013 1058 EST Body Mass Index 33.71 12/24/2013 1058 EST documented in this encounter Mental Status * Because of a physical, mental, or emotional condition, do you have serious difficulty concentrating, remembering, or making decisions? (5 years old or older) Answer Entry Date Author Yes 11/06/2012 16:17 EST Vaishali Rocha ramila documented in this encounter Patient Instructions * Patient Instructions* Pradeep Arthur - 12/24/2013 11:52 EST Images from the original note were not included. [facility] Patient Instructions Gastroenteritis: After Your Visit Your Care Instructions Gastroenteritis is an illness that may cause nausea, vomiting, and diarrhea. It is sometimes calledstomach flu. It can be caused by bacteria or a virus. You will probably begin to feel better in 1 to 2 days. In the meantime, get plenty of rest and makesure you do not become dehydrated. Dehydration occurs when your body loses too much fluid. Follow-up care is a roberts part of your treatment and safety. Be sure to make and go to all appointments, and call your doctor if you are having problems. It???s also a good idea to know your test results and keep a list of the medicines you take. How can you care for yourself at home? ?? If your doctor prescribed antibiotics, take them as directed. Do not stop taking them just because you feel better. You need to take the full course of antibiotics. ?? Drink plenty of fluids to prevent dehydration, enough so that your urine is light yellow or clear like water. Choose water and other caffeine-free clear liquids until you feel better. If you have kidney, heart, or liver disease and have to limit fluids, talk with your doctor before you increase your fluid intake. ?? Drink fluids slowly, in frequent, small amounts, because drinking too much too fast can cause vomiting. ?? Begin eating mild foods, such as dry toast, yogurt, applesauce, bananas, and rice. Avoid spicy, hot, or high-fat foods, and do not drink alcohol or caffeine for a day or two. Do not drink milk or eat ice cream until you are feeling better. How to prevent gastroenteritis ?? Keep hot foods hot and cold foods cold. ?? Do not eat meats, dressings, salads, or other foods that have been kept at room temperature for more than 2 hours. ?? Use a thermometer to check your refrigerator. It should be between 34??F and 40??F. ?? Defrost meats in the refrigerator or microwave, not on the kitchen counter. ?? Keep your hands and your kitchen clean. Wash your hands, cutting boards, and countertops with hot soapy water frequently. ?? Cook meat until it is well done. ?? Do not eat raw eggs or uncooked sauces made with raw eggs. ?? Do not take chances. If food looks or tastes spoiled, throw it out. When should you call for help? Call 911 anytime you think you may need emergency care. For example, call if: ?? You vomit blood or what looks like coffee grounds. ?? You passed out (lost consciousness). ?? You pass maroon or very bloody stools. Call your doctor now or seek immediate medical care if: ?? You have severe belly pain. ?? You have signs of needing more fluids. You have sunken eyes, a dry mouth, and pass only a littledark urine. ?? You feel like you are going to faint. ?? You have increased belly pain that does not go away in 1 to 2 days. ?? You have new or increased nausea, or you are vomiting. ?? You have a new or higher fever. ?? Your stools are black and tarlike or have streaks of blood. Watch closely for changes in your health, and be sure to contact your doctor if: ?? You are dizzy or lightheaded. ?? You urinate less than usual, or your urine is dark yellow or brown. ?? You do not feel better with each day that goes by. Where can you learn more? Go to www.[employer].net/fahc Enter N142 in the search box to learn more about Gastroenteritis: After Your Visit. ?? 6518-0674 [employer]. Care instructions adapted under license by [facility], [facility]. This care instruction is for use with your licensed healthcare professional. If you have questions about a medical condition or this instruction, always ask your healthcare professional. [employer] disclaims any warranty or liability for your use of this information. Content Version: 9.7.374375; Last Revised: February 05, 2011 documented in this encounter Progress Notes * Renee Ramos MD - 12/29/2013 1206 EST Attestation statement: I discussed the patient with the resident/fellow at the time of the visit and agree with the findings and plan of care. Renee Ramos MD 12/29/2013 12:06 * Pradeep Arthur - 12/24/2013 1122 EST Subjective: Patient ID: Mario Curry is an 58 y.o. male. Chief Complaint Patient presents with ??? Diarrhea started Saturday night ??? Abdominal Cramping ??? Blood in stool ??? Nausea ??? Emesis ??? Fever ??? Fatigue HPI Saturday night developed a severe cramp in his suprapubic abdomen. He did proceed to have a very dry bowel movement with some bleeding. The bleeding lasted 1.5 days. It may have been hemorrhoids because it coated the stool. No blood in several days. He did have a fever the second day, but not since. Since then, he has had lower abdominal bloating and nausea. Moving his bowels would relieve the symptoms. He is having up to 20-25 small gassy events with small rabbit, turds. Sometimes they are loose. Recently, no medication changes. The only thing he is doing differently, is that he switched to Centrum Silver for Men, a couple of days prior to this starting. He noticed that the amount of B12 is greater than he usual vitamin. Finally, this AM, he tolerated Ginerale and a bowl of Life cereal. Patient Active Problem List Diagnosis ??? Routine [...] Take 81 mg by mouth daily. ??? cyclobenzaprine (FLEXERIL) 5 mg tablet Take 1 Tab by mouth every 8 hours as needed for Muscle Spasms. 30 Tab 1 ??? divalproex (DEPAKOTE) 500 mg delayed release [...] 90 Each 3 No current facility-administered medications on file prior to visit. Allergies Allergen Reactions ??? Tegretol (Carbamazepine) Rash Social History Substance Use Topics ??? Smoking status: Never Smoker ??? Smokeless tobacco: Never Used ??? Alcohol Use: Yes Comment: 2-3 drinks per week Review of Systems Constitutional: Negative for fever (Subjective fever the second day.), chills and diaphoresis (Again, initially, but no longer.). Respiratory: Negative. Cardiovascular: Negative. Gastrointestinal: Positive for diarrhea. Negative for blood in stool (resolved). Neurological: Negative for weakness. - See HPI Objective: BP 130/84 Pulse 76 Temp(Src) 37.1 ??C (98.7 ??F) (Oral) Ht 174 cm (68.5) Wt 102.059 kg (225 lb) BMI 33.71 kg/m2 Physical Exam Vitals reviewed. Constitutional: He is oriented to person, place, and time. He appears well- developed and well-nourished. HENT: Head: Normocephalic and atraumatic. Right Ear: External ear normal. Left Ear: External ear normal. Mouth/Throat: Oropharynx is clear and moist. Eyes: Conjunctivae and EOM are normal. Neck: Normal range of motion. Neck supple. Cardiovascular: Normal rate, regular rhythm and normal heart sounds. Pulmonary/Chest: Effort normal and breath sounds normal. Abdominal: Soft. Normal appearance and bowel sounds are normal. There is tenderness in the right upper quadrant, right lower quadrant, periumbilical area, suprapubic area and left lower quadrant. There is no rebound. Neurological: He is alert and oriented to person, place, and time. Skin: Skin is warm and dry. Psychiatric: He has a normal mood and affect. His behavior is normal. Assessment: Mario Curry is a 58 y.o. male with hx of GERD, HTN and a seizure d/o, who presents with abdominal bloating and multiple loose BMs daily. He feels his is finally feeling a bit better and tolerated PO fluids and food on the day of this visit. History and physical exam support a viral enteritis. Unlikely bacterial without blood, fever or worsening abdominal pain. If it worsens, or doesn't impr ove, we will consider stool studies. No peritoneal signs/symptoms, thus no imaging or surgical consult today. It is unlikely an ingredient in his new vitamin, but he will hold it for now and try it again once recovered, PRN. Plan: Mario was seen today for diarrhea, abdominal cramping, blood in stool, nausea, emesis, fever and fatigue. Diagnoses and associated orders for this visit: Abdominal pain Viral enteritis Return if symptoms worsen or fail to improve, for abdominal pain, loose BMs. Patient discussed with Dr. Ramos on 12/24/2013. Pradeep Arthur MD 12/28/2013 21:00 documented in this encounter Plan of Treatment Not on file documented as of this encounter Goals Goal Patient Goal Type Associated Problems Recent Progress Patient-Stated? Author Blood Pressure < 130/80 Blood Pressure Hypertension 130/84(2019 8:53 EST) No Roxanna Hannah MD documented as of this encounter Visit Diagnoses Diagnosis Abdominal pain- Primary Abdominal pain, unspecified site Viral enteritis Intestinal infection due to other organism, not elsewhere classified documented in this encounter Care Teams Unemployment Specialist Relationship Specialty Start Date End Date Roxanna Hannah MD [address] [place] [phone] PCP - General 03/28/09 05/31/20 documented as of this encounter
--- OUTSIDE RECORDS SUMMARY | 2024-10-06 13:50 | XMS_ITS | Encounter Summary ---
Author Organization [facility] Address [address] [place] [address] Care Team Providers Care Assembler Garment Form Name Role Phone Roxanna Hannah MD Primary Care Provider + Reason for Visit * Reason Onset Date Comments Medications Refill 07/17/2013 Encounter Details Date Type Department Care Team (Late st Contact Info) Description 07/17/2013 Refill [facility] Medicine [address] [address] Roxanna Hannah MD [address] [place] [phone] Medications Refill Social History Tobacco Use Types [...] End Date simvastatin (ZOCOR) 40 mg tablet Take 1 Tab by mouth every evening. 90 Each 3 07/17/2013 3 divalproex (DEPAKOTE) 500 mg delayed release tablet Take 3 capsules at bedtime 270 Tab 3 07/17/2013 4 documented in this encounter Miscellaneous Notes * Telephone Encounter - Isaura Ray - 07/20/2013 1030 EDT Left message for patient, reminders placed in GE. * Telephone Encounter - Roxanna Hannah MD - 07/18/2013 0652 EDT Due for annual labs and then ROV with me in AUG I signed for fasting labs+ * Telephone Encounter - Jad Reid - 07/17/2013 1435 EDT Message left on the patient's voicemail to call back * Telephone Encounter - Aurea Munson - 07/17/2013 0946 EDT Medication(s) Requested: Simvastatin Divalproex Pharmacy: [facility] mail order Last Refill Date: Simvastatin ? Divalproex ? Last Visit Date: 06.03.13 Next Visit Date: Visit date not found Is patient out of medication? Unknown Aurea Munson 07/17/2013 9:46 documented in this encounter Plan of Treatment Not on file documented as of this encounter Visit Diagnoses Diagnosis HLD (hyperlipidemia)- Primary Other and unspecified hyperlipidemia Seizure disorder ([facility]) Unspecified epilepsy without mention of intractable epilepsy documented in this encounter Discontinued Medications Medication Sig Discontinue Reason Start Date End Da te divalproex (DEPAKOTE) 500 mg delayed release tablet Take 500 mg by mouth at bedtime. 3 tablets,total of 1500 mg Reorder 07/17/2013 simvastatin (ZOCOR) 40 mg tablet Take 40 mg by mouth every evening. Reorder 07/17/2013 documented as of this encounter Care Teams Assembler Garment Form Relationship Specialty Start Date End Date Roxanna Hannah MD [address] [place] [phone] PCP - General 03/28/09 05/31/20 documented as of this encounter
--- OUTSIDE RECORDS SUMMARY | 2024-10-06 13:50 | XMS_ITS | Encounter Summary ---
Author Organization [facility] Address [address] [place] [address] Care Team Providers Care Claim Adjuster Name Role Phone Roxanna Hannah MD Primary Care Provider + Encounter Details Date Type Department Care Team (Late st Contact Info) Description 11/03/2012 Pre-Procedure Orders Encounter [facility] [address] [place] [address] Gogo Horton, PATeodoroC [address] [facility] [address] [place] [phone] Social History Tobacco Use Types Packs/Day Years [...] on file documented as of this encounter Plan of Treatment Not on file documented as of this encounter Visit Diagnoses Not on filedocumented in this encounter Care Teams Claim Adjuster Relationship Specialty Start Date End Date Roxanna Hannah MD [address] [place] [phone] PCP - General 03/28/09 05/31/20 documented as of this encounter
--- OUTSIDE RECORDS SUMMARY | 2024-10-06 13:50 | XMS_ITS | Encounter Summary ---
Author Organization [facility] Address [address] [place] [address] Care Team Providers Care Saw Maker Name Role Phone Roxanna Hannah MD Primary Care Provider + Reason for Visit * Reason Comments Pre-op Exam Encounter Details Date Type Department Care Team (Late st Contact Info) Description 10/27/2012 15:30 EST Office Visit [facility] [address] [phone] Unknown, Provider, Melani Ashraf MD [address] [place] [phone] Rodrigo Whitlock MD [address] [place] [phone] Preop general physical exam; HTN (hypertension); Seizure (CMS-HCC) (HCC-CMS) Discharge Disposition: Auto Discharge Social History Tobacco [...] Sign Reading Time Taken Comments Blood Pressure 132/86 10/27/2012 1527 EST Pulse 92 10/27/2012 1527 EST Temperature 36.2 ??C (97.2 ??F) 10/27/2012 1527 EST Respiratory Rate 18 10/27/2012 1527 EST Oxygen Saturation - - Inhaled Oxygen Concentration - - Weight 108.9 kg (240 lb) 10/27/2012 1527 EST Height 175.3 cm (5' 9) 10/27/2012 1527 EST Body Mass Index 35.44 10/27/2012 1527 EST documented in this encounter Ordered Prescriptions Prescription Sig Dispense Quantity Refills Last Filled Start Date End Date tramadol (ULTRAM) 50 mg tablet Take 1 Tab by mouth every 6 hours as needed for Pain. 10 Tab 0 10/27/2012 01/20/2013 documented in this encounter Discharge Disposition Disposition Code Departure Means Destination Auto Discharge documented in this encounter Progress Notes * Rodrigo Whitlock MD - 10/31/2012 2157 ESTAddended by: RODRIGO WHITLOCK on: 10/31/2012 21:57 Modules accepted: Level of Service * Zuly Gaines LPN - 10/27/2012 1806 EST Venipuncture performed for bmp, depakote Per orders of Davide Whitlock Diagnosis of 780.39, 401.9 TMS * Melani Clemons MD - 10/27/2012 1659 EST Attestation statement for office patient seen by attending: I saw and examined the patient on the day of this service and agree with the findings and plan of care documented in the resident's/fellow's note. Melani Clemons MD Family Medicine Attending 10/27/2012 16:59 * Rodrigo Whitlock MD - 10/27/2012 1618 EST Preoperative H&P Patient ID: Mario Curry is an 57 y.o. male. :1955 Date of Service: 10/27/2012 Chief Complaint: Chief Complaint Patient presents with ??? Pre-op Exam Planned Procedure: Left shoulder replacement Surgeon: Dr. Lorenzo Planned Procedure Date: 11/06/2012 Problem List Available or Initiated: yes Subjective: HISTORY OF PRESENT ILLNESS: -H/o chronic left shoulder pain. Pain started with a traumatic dislocation years ago. Past left shoulder surgery in Dr. Calixto. 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 Steroid injection last spring w/o relief. Now with left sided UE weakness, unable to lift armoverhead, limitation in ROM overhead and increasing nighttime pain. Taking naproxen or ibuprofen and tylenol for pain at night. Has recently been cutting/splitting wood. -Seizure disorder-Stable and seizure free for years. Grand mal nocturnal seizures -HTN-well controlled on HCTZ -HLD-well controllled on zocor Cardiovascular or pulmonary risk factors: hypertension or hypercholesterolemia/hyperlipidemia Prior h/o of anesthetic complications: no Prior h/o bleeding problems: no Prior h/o DVT/PE: no Prior h/o infections (VRE, MRSA): no Reaction to tape or latex: no Family history of anesthetic complications, bleeding problems or DVT/PE: unknown, adopted. Social: Nonsmoker No ETOH Retired from [employer] 04/2012 Patient Active Problem List Diagnoses ??? Routine history and physical examination of adult ??? Seizure disorder ??? Gastroesophageal reflux disease ??? Essential Hypertension ??? Hyperlipidemia ??? Allergic Rhinitis ??? Abnormal Glucose Tolerance Test ??? Male erectile disorder ??? Atypical chest pain ??? Impaired glucose tolerance ??? Depression ??? Anxiety ??? Impaired glucose tolerance Past Medical History Diagnosis Date ??? Erectile [...] Terence Johnson ??? Shoulder surgery s/p dislocation History Substance Use Topics ??? Smoking status: Never Smoker ??? Smokeless tobacco: Never Used ??? Alcohol Use: Yes 2-3 drinks per week Family History Problem [...] Outpatient Prescriptions Medication Sig Dispense Refill ??? tramadol (ULTRAM) 50 mg tablet Take 1 Tab by mouth every 6 hours as needed for Pain. 10 Tab 0 ??? naproxen (NAPROSYN) 500 mg tablet Take 1 Tab by mouth 2 times daily with breakfast and dinner. 60 Tab 2 ??? divalproex (DEPAKOTE) 500 mg ER tablet Take 3 Tabs by mouth daily. Brand name 270 Tab 3 ??? simvastatin (ZOCOR) 40 mg tablet Take 1 Tab by mouth daily. 90 Each 3 ??? hydrochlorothiazide (MICROZIDE) 12.5 mg capsule Take 1 Cap by mouth daily. 90 Cap 3 ??? omeprazole (PRILOSEC) 20 mg capsule Take 1 Cap by mouth daily. 90 Cap 3 ??? aspirin 81 mg EC tablet Take 81 mg by mouth daily. ??? MULTIVITAMINS (MULTI-VITAMIN ORAL) Take 1 Tab by mouth daily. ??? GLUCOSAMINE [id number] ORAL Take 1 Tab by mouth daily. Pt varies dosing ??? Cod Liver Oil Cap Take 1 Cap by mouth 2 times daily. ROS Objective: BP 132/86 Pulse 92 Temp(Src) 36.2 ??C (97.2 ??F) (Oral) Resp 18 Ht 175.3 cm (69) Wt 108.863 kg (240 lb) BMI 35.44 kg/m2 Body mass index is 35.44 kg/(m^2). Physical Exam Nursing note and vitals reviewed. Constitutional: He is oriented to person, place, and time. He appears well- nourished. No distress. HENT: Head: Normocephalic. Eyes: Conjunctivae and EOM are normal. Pupils are equal, round, and reactive to light. Neck: Neck supple. Cardiovascular: Normal rate, regular rhythm and normal heart sounds. Pulmonary/Chest: Effort normal and breath sounds normal. Abdominal: Soft. Bowel sounds are normal. He exhibits no distension. There is no tenderness. Musculoskeletal: He exhibits tenderness. He exhibits no edema. Left sided limitation in ROM in overhead. Internal rotation limited to belt line. Normal gait. Neurological: He is alert and oriented to person, place, and time. Skin: Skin is warm and dry. Psychiatric: He has a normal mood and affect. His behavior is normal. Judgment and thought content normal. EKG: NSR, nl axis, no ST changes or TWI Assessment: 1. Preop general physical exam 2. HTN (hypertension) 3. Seizure No contraindications to planned surgery Plan: Patient requires endocarditis prophylaxis (prosthetic heart materials (not routine MVP), uncorrected congenital heart anomalies, hx endocarditis; and for surgeries of mouth, respiratory tract, or infected tissue only): no. Recommend perioperative beta-alexus: no. HTN-well controlled -Check BMP -cont meds Seizure-well controlled -check valproate level today -cont meds GENERAL PREOP INSTRUCTIONS: Proceed with surgery as planned. No food or liquids the morning of surgery. Call surgeon if develops respiratory illness, fever, or other illness. Return if symptoms worsen or fail to improve. Rodrigo Whitlock MD 10/27/2012 16:46 If is billing provider, the INVESTIGATIVE SHOPPER or PA must attest: I was directly supervised by Dr. Clemons who was present in the office suite and was immediately available. documented in this encounter Procedure Notes * MOSAIC TILE MAKER, SCAN 2 - 10/29/2012 1134 ESTAssociated Order(s): ECG REPORT - SCANNED documented in this encounter Plan of Treatment Not on file documented as of this encounter Procedures Procedure Name Priority Date/Time Associated Diagnosis Comments ECG REPORT - SCANNED 10/29/2012 11:34 EST VALPROIC ACID LEVEL Routine 10/27/2012 1 6:42 EST Seizure (CMS-HCC) (HCC-CMS) BASIC METABOLIC PANEL (BMP) Routine 10/27/2012 16:42 EST Preop general physical exam HTN (hypertension) documented in this encounter Results * ECG REPORT - SCANNED (10/29/2012 11:34 EST) 10/29/2012 11:3 4 EST Narrative 10/29/2012 11:57 EST Procedure Note MOSAIC TILE MAKER, SCAN 2 - 10/29/2012 11:34 EST us Scan 2 Anode Machine Operator PROCEDURE/MINOR SURGICAL OR DERABLES Final Result * VALPROIC ACID LEVEL (10/27/2012 16:42 EST) Valproic Acid 89.8 50.0 - 100.0 ug/ml [facility] Blood specimen (specimen) 10/27/2012 16:42 EST 10/27/2012 18:54 EST us Melani Palumbo MD CHEMISTRY & BLOOD GAS ORD ERABLES Final Result [facility] [address] [place] [address] * BASIC METABOLIC PANEL (10/27/2012 16:42 EST) Sodium 141 136 - 145 mEq/L [facility] Potassium 4.8 3.5 - 5.0 mEq/L [facility] Chloride 99 96 - 110 mEq/L [facility] CO2 30 24 - 32 mEq/L [facility] BUN 25 10 - 26 mg/dl [facility] Creatinine 0.84 0.66 - 1.25 mg/dl [facility] GFR, Calculated >60 >60 ml/min/1.7 3m2 [facility] Calcium 9.4 8.5 - 10.5 mg/dl [facility] Calculated Calcium 9.3 8.5 - 10.5 mg/dl [facility] Glucose, Serum 89 70 - 100 mg/dl [facility] Fasting? Unknown [facility] Blood specimen (specimen) 10/27/2012 16:42 EST 10/27/2012 18:54 EST us Melani Palumbo MD CHEMISTRY & BLOOD GAS ORD ERABLES Final Result [facility] [address] [place] [address] documented in this encounter Visit Diagnoses Diagnosis Preop general physical exam Other specified pre-operative examination HTN (hypertension) Unspecified essential hypertension Seizure (HCC-CMS) Other convulsions documented in this encounter Care Teams Saw Maker Relationship Specialty Start Date End Date Roxanna Hannah MD [address] [place] [phone] PCP - General 03/28/09 05/31/20 documented as of this encounter
--- OUTSIDE RECORDS SUMMARY | 2024-10-06 13:50 | XMS_ITS | Encounter Summary ---
Author Organization [facility] Address [address] [place] [address] Care Team Providers Care Chainstitch Pants Outseamer Name Role Phone Roxanna Hannah MD Primary Care Provider + Reason for Visit * Reason Onset Date Comments Labs Only 08/19/2014 Encounter Details Date Type Department Care Team (Late st Contact Info) Description 08/19/[address] [id number] Roxanna Hannah MD [address] [place] [address] [phone] Labs Only Social History Tobacco Use Types [...] * Telephone Encounter - Hallie Parisi - 08/19/2014 1254 EDT Patient calling for results of his recent labs (valporic acid) and wondering if he should be adjusting his medication documented in this encounter Plan of Treatment Not on file documented as of this encounter Goals Goal Patient Goal Type Associated Problems Recent Progress Patient-Stated? Author Blood Pressure < 130/80 Blood Pressure Hypertension 130/84(2019 8:53 EST) No Roxanna Hannah MD documented as of this encounter Visit Diagnoses Not on filedocumented in this encounter Care Teams Chainstitch Pants Outseamer Relationship Specialty Start Date End Date Roxanna Hannah MD [address] [place] [address] [phone] PCP - General 03/28/09 05/31/20 documented as of this encounter
--- OUTSIDE RECORDS SUMMARY | 2024-10-06 13:50 | XMS_ITS | Encounter Summary ---
Author Organization [facility] Address [address] [place] [address] Care Team Providers Care Motorcycle Engine Assembler Name Role Phone Roxanna Hannah MD Primary Care Provider + Reason for Visit * Reason Onset Date Comments Medications Refill 08/07/2014 Encounter Details Date Type Department Care Team (Late st Contact Info) Description 08/07/2014 Refill [facility] Medicine [address] [address] Roxanna Hannah MD [address] [place] [address] [phone] Medications Refill Social History Tobacco Use Types [...] release tablet TAKE 3 TABLETS AT BEDTIME 30 Tab 0 08/07/2014 09/25/201 4 documented in this encounter Miscellaneous Notes * Telephone Encounter - Michaela Moyer, RN - 08/13/2014 0813 EDT Depakote approved for 30 tablets to the local pharmacy. * Telephone Encounter - Joi Hidalgo - 08/12/2014 1742 EDT Patient setup appointment on 08/13/14 for a blood draw, please refill even if it is a small script, thanks. * Telephone Encounter - Cleo Castle - 08/09/2014 1507 EDT Voicemail left for Thanh to call the office to set up a blood draw. * Telephone Encounter - Jad Reid - 08/09/2014 0840 EDT Refill request received for Depakote Pt due for Depakote level Last level elevated and was due for repeat in one month Will forward to [facility] staff to schedule this lab appointment. documented in this encounter Plan of Treatment [...] release tablet Take 3 capsules at bedtime Reorder 07/17/2013 08/07/2014 documented as of this encounter Care Teams Motorcycle Engine Assembler Relationship Specialty Start Date End Date Roxanna Hannah MD [address] [place] [phone] PCP - General 03/28/09 05/31/20 documented as of this encounter
--- OUTSIDE RECORDS SUMMARY | 2024-10-06 13:50 | XMS_ITS | Encounter Summary ---
Author Organization [facility] Address [address] [place] [address] Care Team Providers Care Food Service Counter Clerk Name Role Phone Roxanna Hannah MD Primary Care Provider + Encounter Details Date Type Department Care Team (Late st Contact Info) Description 10/21/2012 Results Only Imaging [facility] [phone] Pradeep Lorenzo MD [address] [place] [address] [phone] Social History Tobacco Use Types Packs/Day Years [...] on filedocumented in this encounter Care Teams Food Service Counter Clerk Relationship Specialty Start Date End Date Roxanna Hannah MD [address] [place] [phone] PCP - General 03/28/09 05/31/20 documented as of this encounter
--- OUTSIDE RECORDS SUMMARY | 2024-10-06 13:50 | XMS_ITS | Encounter Summary ---
Author Organization [facility] Address [address] [place] [address] Care Team Providers Care Raymond Mill Operator Name Role Phone Roxanna Hannah MD Primary Care Provider + Encounter Details Date Type Department Care Team (Late st Contact Info) Description 03/09/2014 Pre-Procedure Orders Encounter [facility] Urology - [address] [address] Kye Brown, DO [address] [facility], [address] [place] [phone] Hydrocele (Primary Dx) Social History Tobacco Use Types [...] as of this encounter Visit Diagnoses Diagnosis Hydrocele- Primary Hydrocele, unspecified documented in this encounter Care Teams Raymond Mill Operator Relationship Specialty Start Date End Date Roxanna Hannah MD [address] [place] [phone] PCP - General 03/28/09 05/31/20 documented as of this encounter
--- OUTSIDE RECORDS SUMMARY | 2024-10-06 13:50 | XMS_ITS | Encounter Summary ---
Author Organization [facility] Address [address] [place] [address] Care Team Providers Care Construction Job Cost Estimator Name Role Phone Yanira Romero MD Primary Care Provider + Reason for Referral * (Routine) - Closed Specialty Diagnoses / Procedures Referred By Nela t Referred To Contact Karlee Baig PA-C Phone: tel: fax: Referral ID Status Reason Start Date Expiration Date V isits Requested Visits Authorized [id number] Closed Specialty Services Required 03/10/2014 1 1 * (Routine) - Closed Specialty Diagnoses / Procedures Referred By Contac t Referred To Contact Karlee Baig PA-C Phone: tel: fax: Referral ID Status Reason Start Date Expiration Date V isits Requested Visits Authorized [id number] Closed Specialty Services Required 03/10/2014 1 1 * (Routine) - Closed Specialty Diagnoses / Procedures Referred By Contac t Referred To Contact Karlee Baig PA-C Phone: tel: fax: Referral ID Status Reason Start Date Expiration Date V isits Requested Visits Authorized [id number] Closed Specialty Services Required 03/10/2014 1 1 Comments We are currently collecting quality data on patients having surgery. You may receive a phone call, email, and/or letter about your surgery asking you a series of follow up questions to evaluate specifics aspects of your care. Thank you for your participation. * (Routine) - Closed Specialty Diagnoses / Procedures Referred By Nela bravo Referred To Contact Karlee Baig PA-C Phone: tel: fax: Referral ID Status Reason Start Date Expiration Date V isits Requested Visits Authorized [id number] Closed Specialty Services Required 03/10/[address] Brown in 2-4 weeks. [place] from the office will call with your scheduled appointment * (Routine) - Closed Specialty Diagnoses / Procedures Referred By Nela bravo Referred To Contact Karlee Baig PA-C Phone: tel: fax: Referral ID Status Reason Start Date Expiration Date V isits Requested Visits Authorized [id number] Closed Specialty Services Required 03/10/2014 1 1 Comments Chest pain (angina) Dizziness or fainting Decreased urine output Fever greater than 101.5 or chills Inability to swallow or increasing difficulty swallowing Increased or new pain Nausea or vomiting Pain unrelieved by medication Recurrence of symptoms that brought you to the hospital Severe or increasing headache Shortness of breath or rapid breathing Skin rash Signs of infection such as pain, redness, swelling or drainage at procedure or wound site Swelling in your legs Encounter Details Date Type Department Care Team (Late st Contact Info) Description 03/10/2014 9:26 EDT - 03/10/2014 13:20 EDT Hospital Encounter [facility] Perioperative Services- [address] [address] Aminta Brown, [address] [facility], [address] [place] [phone] Sandra (Primary Dx) Discharge Disposition: Home or Self Care Social [...] Sign Reading Time Taken Comments Blood Pressure 142/91 03/10/2014 1300 EDT Pulse - - Temperature 35.9 ??C (96.6 ??F) 03/10/2014 1300 EDT Respiratory Rate 19 03/10/2014 1300 EDT Oxygen Saturation 97% 03/10/2014 1300 EDT Inhaled Oxygen Concentration - - Weight 106.6 kg (235 lb) 03/02/2014 1021 EDT Height 175.3 cm (5' 9) 03/02/2014 1021 EDT Body Mass Index 34.7 03/02/2014 1021 EDT documented in this encounter Mental Status * Because of a physical, mental, or emotional condition, do you have serious difficulty concentrating, remembering, or making decisions? (5 years old or older) Answer Entry Date Author Yes 11/06/2012 16:17 EST Vaishali Rocha documented in this encounter Medications at Time of Discharge acetaminophen (TYLENOL) 650 mg tablet Take 1 Tab by mouth every 4 hours as needed for Pain. 11/07/2012 aspirin 81 mg EC tablet Take 1 Tablet by mouth daily. fluticasone (FLONASE) 50 mcg/actuation nasal spray Instill 2 Sprays into both nostrils daily. 16 g 2 10/27/2013 MULTIVITAMINS (MULTI-VITAMIN ORAL) Take 1 Tab by mouth daily. omeprazole (PRILOSEC) 20 mg capsule TAKE 1 CAPSULE DAILY 90 Cap 3 10/27/2013 divalproex (DEPAKOTE) 500 mg delayed release tablet Take 3 capsules at bedtime 270 Tab 3 07/17/2013 08/07/2014 hydrochlorothiaz gene (MICROZIDE) 12.5 mg capsule Take 1 Cap by mouth daily. 90 Cap 3 10/27/2013 10/14/2014 HYDROcodone-acet aminophen (NORCO) 5-325 mg tablet Take 1 Tab by mouth every 6 hours as needed for Pain. 20 Tab 0 03/10/2014 12/27/2014 simvastatin (ZOCOR) 40 mg tablet Take 1 Tab by mouth every evening. 90 Each 3 10/27/2013 08/16/2014 documented as of this encounter Ordered Prescriptions Prescription Sig Dispense Quantity Refills Last Filled Start Date End Date HYDROcodone-acetam inophen (NORCO) 5-325 mg tablet Take 1 Tab by mouth every 6 hours as needed for Pain. 20 Tab 0 03/10/2014 12/27/2014 documented in this encounter Discharge Disposition Disposition Code Departure Means Destination Home or Self Care documented in this encounter Progress Notes * Jess Rajan - 03/02/2014 1047 EDT Mario Curry has been instructed as follows regarding medication administration for the day of the scheduled procedure. Date of Surgery: 03/10/14 Instructions for Taking Medications Day of Surgery Medication Last Dose Hold DOS Take DOS acetaminophen (TYLENOL) 650 mg tablet Yes aspirin 81 mg EC tablet Yes divalproex (DEPAKOTE) 500 mg delayed release tablet Yes fluticasone (FLONASE) 50 mcg/actuation nasal spray Yes hydrochlorothiazide (MICROZIDE) 12.5 mg capsule hold MULTIVITAMINS (MULTI-VITAMIN ORAL) 03/02/14 omeprazole (PRILOSEC) 20 mg capsule Yes simvastatin (ZOCOR) 40 mg tablet Yes documented in this encounter H&P Notes * Karlee Baig - 03/10/2014 1022 EDT The preoperative history and physical which was performed within 30 days of this procedure has been reviewed and the clinically appropriate elements of the physical examination have been repeated. There are no changes to the documented history and physical or if so such changes are documented below Karlee Baig PA-C 03/10/2014 10:23 Cosigned by Aminta Brown DO at 03/10/2014 13:53 EDT Source Note - Ariel Houston MD - 03/04/2014 14:35 EDT Preoperative H&P Patient ID: Mario Curry [...] Attending 03/04/2014 20:09 documented in this encounter Nursing Notes * LINUX DEVELOPER, SCAN 2 - 03/16/2014 1607 EDT documented in this encounter OR Notes * Anesthesia Preprocedure Evaluation - LINUX DEVELOPER, SCAN 2 - 03/17/2014 1300 EDT * OR PreOp - LINUX DEVELOPER, SCAN 2 - 03/16/2014 1607 EDT * OR Surgeon - Aminta Brown DO - 03/10/2014 195 EDT OPERATIVE REPORT SERVICE DATE: 03/10/2014 PREOPERATIVE DIAGNOSIS: Large right hydrocele. POSTOPERATIVE DIAGNOSIS: Large right hydrocele. PROCEDURE: Right hydrocelectomy. SURGEON: Aminta Brown DO EXTENSION COURSE COORDINATOR: AKOSUA Rodriguez (no qualified urology attendings or residents available). ANESTHESIA: General inhalation. INDICATIONS: Mr Curry has had this right hydrocele for a number of years, but now is to the point where he cannot fit into his pants, has become a major quality of life issue and presents for elective repair. NARRATIVE: He was brought to the operating room, identified and part 1 safety checklist done. General inhalation anesthesia, supine position. A small amount of hair clipped from the right hemiscrotum, prepped and draped in the usual fashion. Part 2 safety checklist done. A transverse incision, 3 cm, right hemiscrotum was made. The adhesions between the tunica vaginalis and the beautiful blue hydrocele color was freed up from the scrotum where it was somewhat adherent. Because of the large size,it was drained at this point and then delivered through the wound. Excessive hydrocele sac was excised with electrocautery. A few of the rougher edges where there were more prominent vessels were oversewn with 4-0 Vicryl. Hemostasis was excellent. Testicle, epididymis, cord structures looked normal. A cord block with 0.5% bupivacaine was done in the upper aspect of the incision was infiltrated with the same local anesthetic for postoperative analgesia. Testicle was redelivered into the hemiscrotum. The wound was closed with running dartos 4-0 Vicryl vertical mattress and simple chromic 4-0 and 5-0 Vicryl for the skin. Antibiotic ointment, sterile dressing, supportive undergarments applied per routine. Part 3 safety checklist without issues. Discussed the findings with his and perioperative care and postop followup in 3 to 4 weeks. Unless otherwise noted, there were no complications, no blood loss, no cultures obtained, no specimens removed, and no drains retained. Aminta Brown DO 11 39 AM / Aminta Brown DO jn Confirmation: [id number] Dictation ID: [id number] * OR PreOp - LINUX DEVELOPER, SCAN 2 - 03/10/2014 1205 EDT * Anesthesia Procedure Notes - LINUX DEVELOPER, SCAN 2 - 03/10/2014 1203 EDT documented in this encounter Plan of Treatment Scheduled Referrals Name Type Priority Associated Diagnoses Order Schedule PROVIDER FOLLOW-UP INSTRUCTIONS Outpatient Referral Routine Ordered: 03/10/2014 PROVIDER FOLLOW-UP INSTRUCTIONS Outpatient Referral Routine Ordered: 03/10/2014 PROVIDER FOLLOW-UP INSTRUCTIONS Outpatient Referral Routine Ordered: 03/10/2014 PROVIDER FOLLOW-UP INSTRUCTIONS Outpatient Referral Routine Ordered: 03/10/2014 PROVIDER FOLLOW-UP INSTRUCTIONS Outpatient Referral Routine Ordered: 03/10/2014 documented as of this encounter Goals Goal Patient Goal Type Associated Problems Recent Progress Patient-Stated? Author Blood Pressure < 130/80 Blood Pressure Hypertension 130/84(2019 8:53 EST) Yanira Jackson MD documented as of this encounter Procedures Procedure Name Priority Date/Time Associated Diagnosis Comments ECG REPORT - SCANNED 03/16/2014 16:07 EDT SURGICAL PATHOLOGY Routine 03/10/2014 14 :12 EDT documented in this encounter Results * ECG REPORT - SCANNED (03/16/2014 16:07 EDT) 03/16/2014 16:0 7 EDT us Scan 2 Automotive Title Clerk PROCEDURE/MINOR SURGICAL OR DERABLES Final Result * SURGICAL PATHOLOGY (03/10/2014 14:12 EDT) Pathology Report: SURGICAL PATHOLOGY REPORT Reports generated via electronic interface contain original data; however they are lacking the format of the original report. Caution should be taken when reading/interpreti ng unformatted reports. Name: ? MARIO CURRY ? Accession #: ? [id number] ? : ? 1955 (Age: 58) ??M ? Collect Date: ? 03/10/2014 ? Location: ? [facility] ? Receive Date: ? 03/10/2014 ? Provider: AMINTA BROWN DO Copy to: YANIRA ROMERO MD ? Final Pathologic Diagnosis: HYDROCELE, RIGHT, HYDROCELECTOMY: - ??Benign mesothelial lined fibrovascular tissue consistent with hydrocele. Document reviewed and electronically signed by: СЕРГЕЙ NAVARRETE MD Report ??Date: 03/12/2014 16:16 By the signature above, the attending physician certifies that he/she has personally conducted a gross and/or microscopic examination of the described specimens and rendered or confirmed the above diagnosis. Specimen(s) Received: Right hydrocele sac Clinical History: Hydrocele Gross Description: ? Received in normal saline labelled with proper patient identification (initials M, G) and A. hydrocele sac is a 8.0 x 5.0 x 0.5 cm vu-white to vu-red, smooth to focally granular, irregular portion of soft tissue. ??No obvious lesions or masses are identified. ??The specimen is serially sectioned the cut surface that is vu-white and homogenous. ??Assessment Nurse sections of the specimen are submitted as cassette 1. Dr. Lowe 03/10/2014 04:08 PM End of Report [facility] 03/10/2014 14:1 2 EDT 03/10/2014 14:12 EDT us Aminta Brown DO PATHOLOGY ORDERABLES Final Result [facility] [address] [place] [address] documented in this encounter Visit Diagnoses Diagnosis Hydrocele- Primary Hydrocele, unspecified Hydrocele Hydrocele, unspecified documented in this encounter Administered Medications Inactive Administered Medications - up to 3 most recent administrations Medication Order MAR Action Action Date Dose Rate Site ceFAZolin (ANCEF) syringe 2 g 2 g, intravenous, Administer over 10 Minutes, PRE-OP ONCE, 1 dose, On Sat03/10/14 at 1100, Routine, Pre-Op DOS Rx Approved Given by Other 03/10/2014 11:02 EDT 2 g lactated ringers (LR) infusion 125 mL/hr, intravenous, CONTINUOUS, Starting on Sat03/10/14 at 1100, Until Sat03/10/14 at 1525, Routine, Pre-Op DOS Rx Approved New Bag 03/10/2014 12:36 EDT 125 mL/hr 125 mL/hr Rate Documented 03/10/2014 12:01 EDT 125 mL/hr 125 mL/hr New Bag 03/10/2014 10:52 EDT 125 mL/hr 125 mL/hr documented in this encounter Discontinued Medications Medication Sig Discontinue Reason Start Date End Da te cyclobenzaprine (FLEXERIL) 5 mg tablet Take 1 Tab by mouth every 8 hours as needed for Muscle Spasms. 04/03/2013 03/02/2014 documented as of this encounter Active and Recently Administered Medications Times are shown in EDT. Scheduled Medication Order 03/08/2014 03/09/2014 03/10/2014 ceFAZolin (ANCEF) syringe 2 g (COMPLETED) 2 g, intravenous, Administer over 10 Minutes, PRE-OP ONCE, 1 dose, On Sat03/10/14 at 1100, Routine, Pre-Op DOS Rx Approved 1102 (Given by Other - Provider: Johnny Blevins RN - Comment: Given by Brittany Dowling) Continuous Medication Order 03/08/2014 03/09/2014 03/10/2014 lactated ringers (LR) infusion (CANCELED) 125 mL/hr, intravenous, CONTINUOUS, Starting on Sat03/10/14 at 1100, Until Sat03/10/14 at 1525, Routine, Pre-Op DOS Rx Approved 1052 (New Bag - Prov ider: Ebony N. Precious, RN)1201 (Rate Documented - Provider: Anna Minaya)1236 (New Bag - Provider: Anna Minaya) documented in this encounter Orders Medications Ordered That Min ht Not Have Been Administered Count Last Ordered Date First Ordered Date atropine 0.1 mg/mL syringe 0.4 mg 1 014 diphenhydrAMINE (BENADRYL) i njection 6.25 mg 1 03/10/2014 fentaNYL citrate (PF) 50 mcg /mL injection 25-100 mcg 1 03/10/2014 HYDROcodone-acetaminophen (N ORCO) 5-325 mg tablet 1-2 Tab 1 03/10/2014 HYDROmorphone (PF) (DILAUDID ) 1 mg/mL injection 0.2-1 mg 1 03/10/2014 nalOXone (NARCAN) injection 0.2 mg 1 2013 ondansetron (PF) (ZOFRAN) injection 4 mg 1 03/10/2014 oxyCODONE (ROXICODONE) immed iate release tablet 5 mg 1 03/10/2014 Diet Count Last Ordered Date First Orde red Date DISCHARGE DIET 2 03/10/2014 Nursing Count Last Ordered Date First Orde red Date ACTIVITY INSTRUCTIONS 1 03/10/2014 BATHING INSTRUCTIONS 2 03/10/2014 DRIVING INSTRUCTIONS 1 03/10/2014 WOUND CARE INSTRUCTIONS 3 03/10/2014 Admission Count Last Ordered Date First Orde red Date STATUS: OUTPATIENT SURGICAL OP BED/SERVICES 1 03/10/2014 Transfer Count Last Ordered Date First Orde red Date NOTIFY PPS PACU PATIENT DISCHARGE 1 014 NOTIFY PPS PATIENT ARRIVAL IN PACU 1 2013 Discharge Count Last Ordered Date First Orde red Date DISCHARGE PATIENT 1 03/10/2014 documented in this encounter Care Teams Construction Job Cost Estimator Relationship Specialty Start Date End Date Yanira Romero MD [address] [place] [phone] PCP - General 03/28/09 05/31/20 documented as of this encounter
--- OUTSIDE RECORDS SUMMARY | 2024-10-06 13:50 | XMS_ITS | Encounter Summary ---
Author Organization [facility] Address [address] [place] [address] Care Team Providers Care Spot Facer Name Role Phone Roxanna Hannah MD Primary Care Provider + Reason for Visit * Reason Onset Date Comments Diarrhea 12/24/2013 Fever 12/24/2013 Encounter Details Date Type Department Care Team (Late st Contact Info) Description 12/24/2013 Telephone [facility] Family Medicine [address] [phone] Roxanna Hannah MD [address] [place] [phone] Diarrhea; Fever Social History Tobacco Use Types Packs/Day Years [...] encounter Miscellaneous Notes * Telephone Encounter - Jasmin Lino RN - 12/24/2013 0957 EST Mario states on Saturday night I had sever lower abdominal cramps then sever diarrhea. Pt was sweating with the episodes. Had blood in the stool the first day or so. C/o a fever on the second daybut that is gone now. Still has cramps in the lower abdomin then diarrhea. No known exposure to bad food. office visit today at 10:45. * Telephone Encounter - Kriss Mercedes - 12/24/2013 0858 EST Reason for Call: Diarrhea and Fever Summary/Symptoms: Five days of diarrha and on/off fever Onset and Duration? Five days Appointment Offered? Iraida Mercedes 12/24/2013 8:58 documented in this encounter Plan of Treatment Not on file documented as of this encounter Goals Goal Patient Goal Type Associated Problems Recent Progress Patient-Stated? Author Blood Pressure < 130/80 Blood Pressure Hypertension 130/84(2019 8:53 EST) No Roxanna Hannah MD documented as of this encounter Visit Diagnoses Not on filedocumented in this encounter Care Teams Spot Facer Relationship Specialty Start Date End Date Roxanna Hannah MD [address] [place] [phone] PCP - General 03/28/09 05/31/20 documented as of this encounter
--- OUTSIDE RECORDS SUMMARY | 2024-10-06 13:50 | XMS_ITS | Encounter Summary ---
Author Organization [facility] Address [address] [place] [address] Care Team Providers Care Software Maintenance Engineer Name Role Phone Roxanna Hannah MD Primary Care Provider + Reason for Visit * Reason Comments Follow-up Encounter Details Date Type Department Care Team (Late st Contact Info) Description 02/23/2014 8:45 EDT Office Visit [facility] Urology - [address] [id number] Kye Brown, DO [address] [facility], [address] [place] [phone] Testicular pain (Primary Dx); Hydrocele, unspecified Discharge Disposition: Auto Discharge Social History Tobacco [...] Entry Date Author Yes 11/06/2012 16:17 EST Vaishlai Rocha documented in this encounter Discharge Diagnoses Diagnosis 608.9 MALE GENITAL DIS NOS[ICD-9-CM] 603.9 HYDROCELE NOS[ICD-9-CM] documented in this encounter Discharge Disposition Disposition Code Departure Means Destination Auto Discharge documented in this encounter Progress Notes * Kye Brown DO - 02/23/2014 0948 EDT Worsening right scrotal swelling and on and off discomfort. Please see my detailed consult of 01/28/13. Over the last year, Mario said the right hemiscrotum is getting bigger, does not fit in his jeans, gets tender at different times. He is urinating okay, erections okay, bowels okay. No other medical/surgical change. No swelling on the left. No inguinal swelling or issues, but the upper scrotum is now filled out. MEDICATIONS: As attached. He is still intolerant of TEGRETOL. PHYSICAL EXAM: He is alert, pleasant, in good spirits. Abdomen benign. No inguinal or ventral hernias or adenopathy. Left scrotum is normal with normal testicle, cords. Penis is normal. Perineum is normal. The right hemiscrotum is markedly enlarged, transilluminable. You can feel the testicle. It goes about jail up the cord, but above that you can feel the proximal cord, which is normal and noinguinal hernias. IMPRESSION AND RECOMMENDATIONS: Discussed what a hydrocele is, as we did last year. He says really becoming a major quality of life issue and causing the discomfort. We discussed pros, cons, risks, benefits of aspiration for temporary and hydrocelectomy for complete therapy and he is considering, but leaning toward hydrocelectomy and he will let us know. CC: Dr Roxanna Hannah documented in this encounter Plan of Treatment Not on file documented as of this encounter Goals Goal Patient Goal Type Associated Problems Recent Progress Patient-Stated? Author Blood Pressure < 130/80 Blood Pressure Hypertension 130/84(2019 8:53 EST) Roxanna Jackson MD documented as of this encounter Procedures Procedure Name Priority Date/Time Associated Diagnosis Comments POCT URINE DIPSTICK, CLINITEK Routine 02/23/2014 8:23 EDT Testicular pain documented in this encounter Results * (ABNORMAL) POCT URINE DIPSTICK (02/23/2014 8:23 EDT) Color YELLOW [facility] Clarity, UA Clear [facility] Glucose Neg Neg [facility] Bilirubin Neg Neg [facility] Ketones Trace(A) Neg [facility] Specific [place] >=1.030 1.001 - 1.035 [facility] Blood Neg Neg [facility] pH 6.0 4.6 - 8.0 [facility] Protein Neg Neg [facility] Urobilinogen 0.2 0.2 - 1.0 E.U./dl [facility] Nitrite Neg Neg [facility] Leuk Esterase Neg Neg [facility] air purifier servicer ID [id number] [facility] Comment:Test performed at [facility] Urine specimen (specimen) 02/23/2014 8:23 EDT 02/23/2014 8:35 EDT us Kye Brown DO POINT OF CARE TEST ORDERABL ES Final Result Performing Organization Address City/State/[facility] Co de Phone Number [facility] [address] [place] [address] documented in this encounter Visit Diagnoses Diagnosis Testicular pain- Primary Unspecified disorder of male genital organs Hydrocele, unspecified documented in this encounter Care Teams Software Maintenance Engineer Relationship Specialty Start Date End Date Roxanna Hannah MD [address] [place] [phone] PCP - General 03/28/09 05/31/20 documented as of this encounter
--- OUTSIDE RECORDS SUMMARY | 2024-10-06 13:50 | XMS_ITS | Encounter Summary ---
Author Organization [facility] Address [address] [place] [address] Care Team Providers Care Parts Order And Stock Clerk Name Role Phone Roxanna Hannah MD Primary Care Provider + Reason for Referral * Consult (Routine/Next Available) - Closed Specialty Diagnoses / Procedures Referred By Nela bravo Referred To Contact Urology Diagnoses Scrotal mass Pradeep Valente MD Referral ID Status Reason Start Date Expiration Date V isits Requested Visits Authorized [id number] Closed Specialty Services Required 01/20/2013 1 1 Question Answer Reason for Request: right scrotal mass Comments (Has seen Dr. Ortiz 07/2010) Reason for Visit * Reason Comments Groin Swelling Encounter Details Date Type Department Care Team (Late st Contact Info) Description 01/20/2013 10:30 EST Office Visit [facility] Family Medicine [address] [address] Pradeep Valente MD Scrotal mass (Primary Dx) Social History Tobacco Use Types [...] Reading Time Taken Comments Blood Pressure 148/84 01/20/2013 1026 EST Pulse 76 01/20/2013 1026 EST Temperature 35.8 ??C (96.4 ??F) 01/20/2013 1026 EST Respiratory Rate - - Oxygen Saturation - - Inhaled Oxygen Concentration - - Weight 108.9 kg (240 lb) 01/20/2013 1026 EST Height - - Body Mass Index 35.44 10/28/2012 1034 EST documented in this encounter Mental Status * Because of a physical, mental, or emotional condition, do you have serious difficulty concentrating, remembering, or making decisions? (5 years old or older) Answer Entry Date Author Yes 11/06/2012 16:17 EST Vaishali Rocha documented in this encounter Patient Instructions * Patient Instructions* Pradeep Valente MD - 01/20/2013 10:41 EST Needs scrotal ultrasound, but in the interest of efficiency will obtain Urology consultation (likely they can do ultrasound in office). (Has seen Dr. Brown 07/2010) Call right away if new or worsening symptoms. documented in this encounter Progress Notes * Pradeep Valente MD - 01/20/2013 1031 EST Encounter Diagnosis Name Primary? Scrotal mass Yes S: Right testicle seems to be enlarged for past few weeks. 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 Not really painful, but feels too full. Has been noticing for last 2-3 weeks. No trauma. Recovering from shoulder surgery, so has been relatively inactive. No fevers. Doesn't feel sick. No urinary symptoms. Did have blood in semen a few years ago - resolved after negative urology consultation. O: Blood pressure 148/84, pulse 76, temperature 35.8 ??C (96.4 ??F), weight 108.863 kg (240 lb). NAD Scrotal exam: Right side very large and soft, no hard mass, difficult to tell if testicular or hydrocele. Nodes normal. Inguinal canal feels normal without hernia. A: Encounter Diagnosis Name Primary? Scrotal mass Yes P: Needs scrotal ultrasound, but in the interest of efficiency will obtain Urology consultation (likely they can do ultrasound in office). (Has seen Dr. Brown 07/2010) Call right away if new or worsening symptoms. documented in this encounter Plan of Treatment Scheduled Referrals Name Type Priority Associated Diagnoses Orde r Schedule AMB CONSULT UROLOGY Outpatient Referral Routine Scrotal mass Ordered: 01/20/2013 documented as of this encounter Visit Diagnoses Diagnosis Scrotal mass- Primary Other specified disorder of male genital organs documented in this encounter Discontinued Medications Medication Sig Discontinue Reason Start Date End Da te HYDROmorphone (DILAUDID) 2 mg tablet Take 1-3 Tabs by mouth every 3 hours as needed for Pain. Patient Stopped Taking 11/07/2012 01/20/2013 tramadol (ULTRAM) 50 mg tablet Take 1 Tab by mouth every 6 hours as needed for Pain. Therapy completed 10/27/2012 01/20/2013 documented as of this encounter Care Teams Parts Order And Stock Clerk Relationship Specialty Start Date End Date Roxanna Hannah MD [address] [place] [phone] PCP - General 03/28/09 05/31/20 documented as of this encounter
--- OUTSIDE RECORDS SUMMARY | 2024-10-06 13:50 | XMS_ITS | Encounter Summary ---
Author Organization [facility] Address [address] [place] [address] Care Team Providers Care Food General Manager Name Role Phone Roxanna Hannah MD Primary Care Provider + Reason for Visit * Reason Onset Date Comments Medications Refill 07/17/2013 Encounter Details Date Type Department Care Team (Late st Contact Info) Description 07/17/2013 Refill [facility] Medicine [address] [address] Roxanna Hannah MD [address] [place] [phone] Medications Refill Social History Tobacco Use Types [...] 1 Cap by mouth daily. 90 Cap 0 07/17/2013 10/27/2013 documented in this encounter Miscellaneous Notes * Telephone Encounter - Michaela Moyer, RN - 07/17/2013 1605 EDT HCTZ prescription approved for 3 months. * Telephone Encounter - Cleo Castle - 07/17/2013 0997 EDT Medication(s) Requested: Hydrochlorothiazide Pharmacy: [facility] Last Refill Date: 07/24/12 Last Visit Date: 06/03/13 Next Visit Date: Visit date not found Is patient out of medication? unknown Cleo Castle 07/17/2013 9:34 documented in this encounter Plan of Treatment Not on file documented as of this encounter Visit Diagnoses Not on filedocumented in this encounter Discontinued Medications Medication Sig Discontinue Reason Start Date End Da te hydrochlorothiazide (MICROZIDE) 12.5 mg capsule Take 1 Cap by mouth daily. Reorder 07/24/2012 07/17/2013 documented as of this encounter Care Teams Food General Manager Relationship Specialty Start Date End Date Roxanna Hannah MD [address] [place] [phone] PCP - General 03/28/09 05/31/20 documented as of this encounter
--- OUTSIDE RECORDS SUMMARY | 2024-10-06 13:50 | XMS_ITS | Encounter Summary ---
Author Organization [facility] Address [address] [place] [address] Care Team Providers Care Gas Plant Worker Name Role Phone Roxanna Hannah MD Primary Care Provider + Reason for Visit * Reason Comments Post-OP Follow Up Encounter Details Date Type Department Care Team (Late st Contact Info) Description 04/07/2014 14:15 EDT Post-op Visit [facility] Urology - [address] [phone] Kye Brown, DO [address] [facility], [address] [place] [phone] Testicular pain (Primary Dx); Hydrocele, [...] this encounter Progress Notes * Kye Brown, - 04/07/2014 1444 EDT Postoperative note status post right hydrocelectomy. Thanh feels he is doing great. On exam, his incision has healed well. It is about two-thirds down insize but still has some edema in there; it will go down about a third. He is really happy with the result. Pathology was obviously benign. He will follow with us expectantly but knows to call for anyGU issues going forward. cc: Roxanna Hannah MD documented in this encounter Plan of Treatment Not on file documented as of this encounter Goals Goal Patient Goal Type Associated Problems Recent Progress Patient-Stated? Author Blood Pressure < 130/80 Blood Pressure Hypertension 130/84(2019 8:53 EST) No Roxanna Hannah MD documented as of this encounter Procedures Procedure Name Priority Date/Time Associated Diagnosis Comments POCT URINE DIPSTICK, CLINITEK Routine 04/07/2014 14:32 EDT Testicular pain documented in this encounter Results * (ABNORMAL) POCT URINE DIPSTICK (04/07/2014 14:32 EDT) Color YELLOW [facility] Clarity, UA Clear [facility] Glucose Neg Neg [facility] Bilirubin Neg Neg [facility] Ketones 1+(A) Neg [facility] Specific [place] >=1.030 1.001 - 1.035 [facility] Blood Neg Neg [facility] pH 5.5 4.6 - 8.0 [facility] Protein Neg Neg [facility] Urobilinogen 0.2 0.2 - 1.0 E.U./dl [facility] Nitrite Neg Neg [facility] Leuk Esterase Neg Neg [facility] claims manager ID [id number] [facility] Comment:Test performed at [facility] Urine specimen (specimen) 04/07/2014 14:32 EDT 04/07/2014 14:41 EDT Kye Brown DO POINT OF CARE TEST ORDERABL ES Final Result Performing Organization Address City/State/[facility] Co de Phone Number [facility] [address] [place] [address] documented in this encounter Visit Diagnoses Diagnosis Testicular pain- Primary Unspecified disorder of male genital organs Hydrocele, unspecified documented in this encounter Care Teams Gas Plant Worker Relationship Specialty Start Date End Date Roxanna Hannah MD [address] [place] [phone] PCP - General 03/28/09 05/31/20 documented as of this encounter
--- OUTSIDE RECORDS SUMMARY | 2024-10-06 13:50 | XMS_ITS | Encounter Summary ---
Author Organization [facility] Address [address] [place] [address] Care Team Providers Care Mexican Food Maker Name Role Phone Roxanna Hannah MD Primary Care Provider + Reason for Visit * Reason Comments Back Pain For several weeks. N otices popping running down back. Encounter Details Date Type Department Care Team (Late st Contact Info) Description 04/03/2013 8:30 EDT Office Visit [facility] Medicine [address] [id number] Unknown, Provider, MD Arthur, Pradeep Michel MD [address] [place] [phone] Spasm of muscle, back (Primary Dx) Social History Tobacco Use Types [...] Sign Reading Time Taken Comments Blood Pressure 136/88 04/03/2013 0826 EDT Pulse 64 04/03/2013 0826 EDT Temperature 36.1 ??C (97 ??F) 04/03/2013 0826 EDT Respiratory Rate - - Oxygen Saturation - - Inhaled Oxygen Concentration - - Weight 111.6 kg (246 lb) 04/03/2013 0826 EDT Height - - Body Mass Index 36.33 10/28/2012 1034 EST documented in this encounter Mental Status * Because of a physical, mental, or emotional condition, do you have serious difficulty concentrating, remembering, or making decisions? (5 years old or older) Answer Entry Date Author Yes 11/06/2012 16:17 EST Vaishali Rocha documented in this encounter Patient Instructions * Patient Instructions* Pradeep Arthur - 04/03/2013 8:52 EDT Images from the original note were not included. We will start with home stretching and strengthening of the lower back. Typically ibuprofen would help with muscle strain in the back, but we are unable to use it at this time due to your healing shoulder. Tylenol may help with the pain. For the next few weeks we can trial a low dose of muscle relaxant. If your pain worsens, if you have numbness or tingling in your legs or feet, if you have bladder orbowel problems, please call. [facility] Patient Instructions Low Back Pain: Exercises Your Care Instructions Here are some examples of typical rehabilitation exercises for your condition. Start each exercise slowly. Ease off the exercise if you start to have pain. Your doctor or physical therapist will tell you when you can start these exercises and which ones will work best for you. How to do the exercises Press-up 1. Lie on your stomach, supporting your body with your forearms. 2. Press your elbows down into the floor to raise your upper back. As you do this, relax your stomach muscles and allow your back to arch without using your back muscles. As your press up, do not letyour hips or pelvis come off the floor. 3. Hold for 15 to 30 seconds, then relax. 4. Repeat 2 to 4 times. Alternate arm and leg (bird dog) exercise Note: Do this exercise slowly. Try to keep your body straight at all times, and do not let one hip drop lower than the other. 1. Start on the floor, on your hands and knees. 2. Tighten your belly muscles. 3. Raise one leg off the floor, and hold it straight out behind you. Be careful not to let your hipdrop down, because that will twist your trunk. 4. Hold for about 6 seconds, then lower your leg and switch to the other leg. 5. Repeat 8 to 12 times on each leg. 6. Over time, work up to holding for 10 to 30 seconds each time. 7. If you feel stable and secure with your leg raised, try raising the opposite arm straight out infront of you at the same time. [id number] exercise 1. Lie on your back with your knees bent and your feet flat on the floor. 2. Bring one knee to your chest, keeping the other foot flat on the floor (or keeping the other legstraight, whichever feels better on your lower back). 3. Keep your lower back pressed to the floor. Hold for at least 15 to 30 seconds. 4. Relax, and lower the knee to the starting position. 5. Repeat with the other leg. Repeat 2 to 4 times with each leg. 6. To get more stretch, put your other leg flat on the floor while pulling your knee to your chest. Curl-ups 1. Lie on the floor on your back with your knees bent at a 90-degree angle. Your feet should be flat on the floor, about 12 inches from your buttocks. 2. Cross your arms over your chest. 3. Slowly tighten your belly muscles and raise your shoulder blades off the floor. 4. Keep your head in line with your body, and do not press your chin to your chest. 5. Hold this position for 1 or 2 seconds, then slowly lower yourself back down to the floor. 6. Repeat 8 to 12 times. Pelvic tilt exercise 1. Lie on your back with your knees bent. 2. Brace your stomach. This means to tighten your muscles by pulling in and imagining your belly button moving toward your spine. You should feel like your back is pressing to the floor and your hips and pelvis are rocking back. 3. Hold for about 6 seconds while you breathe smoothly. 4. Repeat 8 to 12 times. Heel dig bridging 1. Lie on your back with both knees bent and your ankles bent so that only your heels are digging into the floor. Your knees should be bent about 90 degrees. 2. Then push your heels into the floor, squeeze your buttocks, and lift your hips off the floor until your shoulders, hips, and knees are all in a straight line. 3. Hold for about 6 seconds as you continue to breathe normally, and then slowly lower your hips back down to the floor and rest for up to 10 seconds. 4. Do 8 to 12 repetitions. Hamstring stretch in doorway 1. Lie on your back in a doorway, with one leg through the open door. 2. Slide your leg up the wall to straighten your knee. You should feel a gentle stretch down the back of your leg. 3. Hold the stretch for at least 15 to 30 seconds. Do not arch your back, point your toes, or bend either knee. Keep one heel touching the floor and the other heel touching the wall. 4. Repeat with your other leg. 5. Do 2 to 4 times for each leg. Hip flexor stretch 1. Kneel on the floor with one knee bent and one leg behind you. Place your forward knee over your foot. Keep your other knee touching the floor. 2. Slowly push your hips forward until you feel a stretch in the upper thigh of your rear leg. 3. Hold the stretch for at least 15 to 30 seconds. Repeat with your other leg. 4. Do 2 to 4 times on each side. Wall sit 1. Stand with your back 10 to 12 inches away from a wall. 2. Lean into the wall until your back is flat against it. 3. Slowly slide down until your knees are slightly bent, pressing your lower back into the wall. 4. Hold for about 6 seconds, then slide back up the wall. 5. Repeat 8 to 12 times. Follow-up care is a roberts part of your treatment and safety. Be sure to make and go to all appointments, and call your doctor if you are having problems. It's also a good idea to know your test resultsand keep a list of the medicines you take. Where can you learn more? Go to www.[employer].net/fahc Enter Z938 in the search box to learn more about Low Back Pain: Exercises. ?? [id number] [employer]. Care instructions adapted under license by [facility] This care instruction is for use with your licensed healthcare professional. If you have questions about a medical condition or this instruction, always ask your healthcare professional. [employer] disclaims any warranty or liability for your use of this information. Content Version: 9.2.011093; Last Revised: October 14, 2009 documented in this encounter Ordered Prescriptions Prescription Sig Dispense Quantity Refills Last Filled Start Date End Date cyclobenzaprine (FLEXERIL) 5 mg tablet Take 1 Tab by mouth every 8 hours as needed for Muscle Spasms. 30 Tab 1 04/03/2013 03/02/2014 documented in this encounter Progress Notes * Jasmin Michel MD - 04/07/2013 1124 EDT Attestation statement for patient not seen by attending: I discussed the patient with the resident/fellow at the time of the visit and agree with the findings and the plan of care documented in the resident's/fellow's note. Jasmin Michel MD Family Medicine Attending 04/07/2013 11:24 * Pradeep Arthur - 04/03/2013 0843 EDT Subjective: Patient ID: Mario Curry is an 57 y.o. male. Chief Complaint Patient presents with ??? Back Pain For several weeks. Notices popping running down back. HPI Back Pain: recovering from shoulder surgery from 5 months ago. He is finding that he has much lower back cracking and popping when he works. He finds that over the past 1-2 months, the lower back has been more uncomfortable. Exacerbated with twisting movements, such as raking. He has tried to use leg lifts, etc, to strengthen it. Over the winter, he could carry wood, etc., now it hurts. He has had MRI and X-ray of his back in the past and there is stigmata of prior fractures. Patient Active Problem List Diagnoses ??? Routine [...] 4 hours as needed for Pain. ??? divalproex (DEPAKOTE) 500 mg delayed release tablet Take 500 mg by mouth at bedtime. 3 tablets,total of 1500 mg ??? simvastatin (ZOCOR) 40 mg tablet Take 40 mg by mouth every evening. ??? hydrochlorothiazide (MICROZIDE) 12.5 mg capsule Take 1 Cap by mouth daily. 90 Cap 3 ??? omeprazole (PRILOSEC) 20 mg capsule Take 1 Cap by mouth daily. 90 Cap 3 ??? aspirin 81 mg EC tablet Take 81 mg by mouth daily. ??? MULTIVITAMINS (MULTI-VITAMIN ORAL) Take 1 Tab by mouth daily. Allergies Allergen Reactions ??? Tegretol (Carbamazepine) Rash Social History Substance Use Topics ??? Smoking status: Never Smoker ??? Smokeless tobacco: Never Used ??? Alcohol Use: Yes 2-3 drinks per week Review of Systems Constitutional: Negative. Eyes: Negative. Cardiovascular: Negative. Gastrointestinal: Normal bowel control. Genitourinary: Negative for dysuria. Normal bladder control. Musculoskeletal: Positive for back pain. Neurological: Negative for tingling, sensory change and focal weakness. - See HPI Objective: BP 136/88 Pulse 64 Temp(Src) 36.1 ??C (97 ??F) (Oral) Wt 111.585 kg (246 lb) Physical Exam Vitals reviewed. Constitutional: He is oriented to person, place, and time. He appears well- developed and well-nourished. HENT: Head: Normocephalic and atraumatic. Cardiovascular: Normal rate, regular rhythm, normal heart sounds and intact distal pulses. Exam reveals no gallop and no friction rub. No murmur heard. Pulmonary/Chest: Effort normal and breath sounds normal. Musculoskeletal: Normal and symmetric tone bilaterally in the lower extremities. There was a palpable soft mass in the right lower back, overlying the SI joint. Consistent with muscle spasm. Neurological: He is alert and oriented to person, place, and time. He has normal reflexes. He exhibits normal muscle tone. Coordination normal. Lower extremity strength: 5/5 in hip flexion, knee extension and flexion, ankle extension and flexion, bilaterally. Lower extremity Achilles and patellar reflexes 2+ bilaterally. Lower extremity sensation normal. Skin: Skin is warm and dry. Psychiatric: He has a normal mood and affect. His behavior is normal. Assessment: 57 y.o. male with hx of lower back pain and left shoulder pain (s/p left shoulder replacement 5 months prior) who present with right sided lumbar pain and muscle spasm. Plan: Mario was seen today for back pain. Diagnoses and associated orders for this visit: Spasm of muscle, back - the patient declined physical therapy referral at this time - cyclobenzaprine (FLEXERIL) 5 mg tablet; Take 1 Tab by mouth every 8 hours as needed for Muscle Spasms. Return in about 4 weeks (around 05/01/2013), or if symptoms worsen or fail to improve, for back pain. The patient and plan were discussed with Dr. Michel. Signed, Pradeep Arthur MD, Pager [phone] [facility] Spray Gunner 04/03/2013 18:43 Patient Instructions We will start with home stretching and strengthening of the lower back. Typically ibuprofen would help with muscle strain in the back, but we are unable to use it at this time due to your healing shoulder. Tylenol may help with the pain. For the next few weeks we can trial a low dose of muscle relaxant. If your pain worsens, if you have numbness or tingling in your legs or feet, if you have bladder orbowel problems, please call. [facility] Patient Instructions Low Back Pain: Exercises Your Care Instructions (these were provided, but are deleted here for brevity) documented in this encounter Plan of Treatment Not on file documented as of this encounter Visit Diagnoses Diagnosis Spasm of muscle, back- Primary Other symptoms referable to back documented in this encounter Care Teams Mexican Food Maker Relationship Specialty Start Date End Date Roxanna Hannah MD [address] [place] [phone] PCP - General 03/28/09 05/31/20 documented as of this encounter
--- OUTSIDE RECORDS SUMMARY | 2024-10-06 13:50 | XMS_ITS | Encounter Summary ---
Author Organization [facility] Address [address] [place] [address] Care Team Providers Care Practice Consultant Name Role Phone Roxanna Hannah MD Primary Care Provider + Reason for Visit * Reason Onset Date Comments Orders (Non Pre-visit) 01/28/2013 Encounter Details Date Type Department Care Team (Late st Contact Info) Description 01/28/2013 Orders Only [facility] Urology - [address] [phone] Kye Brown, DO [address] [facility], [address] [place] [phone] Testicular pain (Primary Dx) Social History Tobacco Use [...] as of this encounter Visit Diagnoses Diagnosis Testicular pain- Primary Unspecified disorder of male genital organs documented in this encounter Care Teams Practice Consultant Relationship Specialty Start Date End Date Roxanna Hannah MD [address] [place] [phone] PCP - General 03/28/09 05/31/20 documented as of this encounter
--- OUTSIDE RECORDS SUMMARY | 2024-10-06 13:50 | XMS_ITS | Encounter Summary ---
Author Organization [facility] Address [address] [place] [address] Care Team Providers Care Poultry Dresser Name Role Phone Roxanna Hannah MD Primary Care Provider + Encounter Details Date Type Department Care Team (Late st Contact Info) Description 10/28/2013 Orders Only [facility] Family Medicine - [address] [phone] Roxanna Hannah MD [address] [place] [phone] Seizure disorder ([facility]) (Primary Dx) Social History Tobacco Use Types [...] Hannah MD documented as of this encounter Results * VALPROIC ACID LEVEL (08/13/2014 16:33 EDT) Valproic Acid 84.7 50.0 - 100.0 ug/ml [facility] Blood specimen (specimen) 08/13/2014 16:33 EDT 08/13/2014 19:25 EDT us Roxanna Hannah MD CHEMISTRY & BLOOD GAS OR DERABLES Final Result [facility] [address] [place] [address] documented in this encounter Visit Diagnoses Diagnosis Seizure disorder ([facility])- Primary Unspecified epilepsy without mention of intractable epilepsy documented in this encounter Care Teams Poultry Dresser Relationship Specialty Start Date End Date Roxanna Hannah MD [address] [place] [phone] PCP - General 03/28/09 05/31/20 documented as of this encounter
--- OUTSIDE RECORDS SUMMARY | 2024-10-06 13:50 | XMS_ITS | Encounter Summary ---
Author Organization [facility] Address [address] [place] [address] Care Team Providers Care Assistant Merchandiser Name Role Phone Roxanna Hannah MD Primary Care Provider + Reason for Visit * Reason Onset Date Comments Medications Refill 08/19/2014 Encounter Details Date Type Department Care Team (Late st Contact Info) Description 08/19/2014 Refill [facility] Medicine [address] [address] Roxanna Hannah MD [address] [place] [phone] Medications Refill Social History Tobacco Use Types [...] release tablet TAKE 3 TABLETS AT BEDTIME. 90 Tab 1 08/19/2014 4 documented in this encounter Miscellaneous Notes * Telephone Encounter - Roxanna Hannah MD - 08/20/2014 1614 EDT I did send for #90 with 1 RF, but he does need to be seen within the next 6 mos * Telephone Encounter - Joi Hidalgo - 08/19/2014 1529 EDT Spoke to patient, he said that he had come in for blood work recently for the medications, does notthink he still needs to come in. They had written a script for a month on 08/08/14, now need a year's worth to go to mail order. * Telephone Encounter - Jasmin Lino RN - 08/19/2014 1447 EDT Per the 10/27/13 office visit the patient was suppose to follow up in three months and did not, Please call to schedule an office visit then route the Depakote refill to the nurse pool * Telephone Encounter - Hallie Parisi - 08/19/2014 1258 EDT Medication(s) Requested: Depakote 500mg Pharmacy: [facility] Last Refill Date: 08/07/14 (local pharmacy) Last Visit Date: 03/04/14 Next Visit Date: Visit date not found Is patient out of medication? No but will need a 90 day supply with 3 refills to mail order smtia Parisi 08/19/2014 12:58 documented in this encounter Plan of Treatment [...] tablet TAKE 3 TABLETS AT BEDTIME Reorder 08/07/2014 08/19/2014 documented as of this encounter Care Teams Assistant Merchandiser Relationship Specialty Start Date End Date Roxanna Hannah MD [address] [place] [phone] PCP - General 03/28/09 05/31/20 documented as of this encounter
--- OUTSIDE RECORDS SUMMARY | 2024-10-06 13:50 | XMS_ITS | Encounter Summary ---
Author Organization [facility] Address [address] [place] [address] Care Team Providers Care Box Car Bracer Name Role Phone Roxanna Hannah MD Primary Care Provider + Reason for Referral * Radiology Services (Routine/Next Available) - Closed Specialty Diagnoses / Procedures Referred By Nela bravo Referred To Contact Diagnoses LBP radiating to right leg Procedures L SPINE 2-3 VIEWS Roxanna Hannah MD Phone: tel: fax: Referral ID Status Reason Start Date Expiration Date Visits Re quested Visits Authorized [id number] Closed 06/03/2013 1 1 Reason for Visit * Reason Comments Back Pain been going on for a few months-has been seen once before for this same issue Medication Questions Encounter Details Date Type Department Care Team (Late st Contact Info) Description 06/03/2013 11:00 EDT Office Visit [facility] Family Medicine - [address] [address] Roxanna Hannah MD [address] [place] [phone] LBP radiating to right leg (Primary Dx) Discharge Disposition: Auto Discharge Social [...] Sign Reading Time Taken Comments Blood Pressure 138/82 06/03/2013 1104 EDT Pulse 80 06/03/2013 1104 EDT Temperature 36.7 ??C (98 ??F) 06/03/2013 1104 EDT Respiratory Rate 12 06/03/2013 1104 EDT Oxygen Saturation - - Inhaled Oxygen Concentration - - Weight 106.6 kg (235 lb) 06/03/2013 1104 EDT Height - - Body Mass Index 34.7 10/28/2012 1034 EST documented in this encounter Mental Status * Because of a physical, mental, or emotional condition, do you have serious difficulty concentrating, remembering, or making decisions? (5 years old or older) Answer Entry Date Author Yes 11/06/2012 16:17 EST Vaishali Rocha documented in this encounter Patient Instructions * Patient Instructions* Roxanna Hannah MD - 06/03/2013 12:22 EDT IBUPROFEN 600-800 mg (3-4 tabs) three times daily for few days Heat and strecthes documented in this encounter Discharge Disposition Disposition Code Departure Means Destination Auto Discharge documented in this encounter Progress Notes * Roxanna Hannah MD - 06/04/2013 1629 EDT Subjective: Patient ID: Mario Curry is an 57 y.o. male. Chief Complaint Patient presents with ??? Back Pain been going on for a few months-has been seen once before for this same issue ??? Medication Questions HPI Here to discuss LBP Has had intermittent pain for years This episode has been 5-6 weeks at least Was seen earlier this summer (March) here for this, felt to be MSK spasm Is 6 mos s/p left shoulder replacement and has another 6 mos for full recovery Has had previous back injury, mild compression deformity of T4 and T12 in past Has never had LS spine images that I can find Pain is deep ache, into right lateral thigh No other pain radiation, no LE numbness or LE weakness No spontaneous bladder or bowel incontinence Has not been using NSAIDs, as was told not to use because can interfere with healing Ice and heat have not been helping Laid off from [employer] 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 Routine [...] to Visit Medication Sig Dispense Refill ??? omeprazole (PRILOSEC) 20 mg capsule TAKE 1 CAPSULE DAILY 90 Cap 0 ??? cyclobenzaprine (FLEXERIL) 5 mg tablet Take 1 Tab by mouth every 8 hours as needed for Muscle Spasms. 30 Tab 1 ??? acetaminophen (TYLENOL) 650 mg tablet Take [...] Alcohol Use: Yes 2-3 drinks per week ROS - See HPI Objective: BP 138/82 Pulse 80 Temp(Src) 36.7 ??C (98 ??F) (Oral) Resp 12 Wt 106.595 kg (235 lb) Physical Exam Constitutional: He appears well-developed and well-nourished. No distress. HENT: Head: Normocephalic and atraumatic. Eyes: Conjunctivae normal are normal. No scleral icterus. Musculoskeletal: Lumbar back: He exhibits tenderness (mild between right lower paraspinous muscles and SI joint) andpain. He exhibits normal range of motion, no bony tenderness, no swelling, no edema, no deformity and no spasm. Left and right hip with full ROM, including internal and external rotation Neurological: He is alert. He has normal strength. He displays normal reflexes. No sensory deficit.He exhibits normal muscle tone. Coordination and gait normal. SLR NEG Psychiatric: He has a normal mood and affect. Assessment: Plan: Mario was seen today for back pain and medication questions . Diagnoses and associated orders for this visit: Lbp radiating to right leg No concerning neuroradicular component except mild thigh pain radiation. LS spine XRAY seemed ok, mild arthritis changes only Likely more mechanical and muscle type pain Bending, lifting, pushing, pulling can aggravate it Hxqh-riuwzdz-ynlh cycles Ok to use short course Ibuprofen 800 mg tid (3-7 days) Not a surgical issues at present PT and modalities in future might help as well - L SPINE 2-3 VIEWS Return if symptoms worsen or fail to improve. documented in this encounter Plan of Treatment Not on file documented as of this encounter Procedures Procedure Name Priority Date/Time Associated Diagnosis Comments L SPINE 2-3 VIEWS Routine 06/03/2013 12: 24 EDT LBP radiating to right leg documented in this encounter Results * L SPINE 2-3 VIEWS (06/03/2013 12:24 EDT) Anatomical Region Laterality Modality Other 06/03/2013 12:2 4 EDT 06/04/2013 10:05 EDT Narrative 06/04/2013 10:04 EDT L SPINE 2-3 VIEWS ??06/03/2013 12:24 PM Signs and Symptoms/Comments: ??724.4-Dprozkb-XCW-9-CM; Right LBP Comparisons: Thoracic spine MRI 01/26/2011. Technique: AP and lateral view of the lumbar spine. Findings: There is normal alignment of the vertebral bodies and posterior elements of the lumbar spine. No fractures are evident. There is preservation of the vertebral body heights. There is mild multilevel degenerative disc disease throughout the lumbar spine, most severe at the L4-L5 level. Mild facet arthropathy is evident from L4-S1. There is a surgical clip overlying the left midabdomen. The SI joints and hips are unremarkable. Mild atherosclerotic calcifications are noted within the abdominal aorta. Procedure Note 06/04/2013 L SPINE 2-3 VIEWS 06/03/2013 12:24 PM Signs and Symptoms/Comments: 724.4-Hwoegic-OVX-9-CM; Right LBP Comparisons: Thoracic spine MRI 01/26/2011. Technique: AP and lateral view of the lumbar spine. Findings: There is normal alignment of the vertebral bodies and posterior elements of the lumbar spine. No fractures are evident. There is preservation of the vertebral body heights. There is mild multilevel degenerative disc disease throughout the lumbar spine, most severe at the L4-L5 level. Mild facet arthropathy is evident from L4-S1. There is a surgical clip overlying the left midabdomen. The SI joints and hips are unremarkable. Mild atherosclerotic calcifications are noted within the abdominal aorta. Roxanna Hannah MD IMG DIAGNOSTIC IMAGING O RDERABLES Final Result documented in this encounter Visit Diagnoses Diagnosis LBP radiating to right leg- Primary Lumbago documented in this encounter Care Teams Box Car Bracer Relationship Specialty Start Date End Date Roxanna Hannah MD [address] [place] [phone] PCP - General 03/28/09 05/31/20 documented as of this encounter
--- OUTSIDE RECORDS SUMMARY | 2024-10-06 13:50 | XMS_ITS | Encounter Summary ---
Author Organization [facility] Address [address] [place] [address] Care Team Providers Care Public Speaker Name Role Phone Roxanna Hannah MD Primary Care Provider + Reason for Visit * Reason Onset Date Comments Medications Refill 04/25/2013 Encounter Details Date Type Department Care Team (Late st Contact Info) Description 04/25/2013 Refill [facility] Medicine [address] [address] Roxanna Hannah MD [address] [place] [phone] Medications Refill Social History Tobacco Use Types [...] TAKE 1 CAPSULE DAILY 90 Cap 0 04/25/2013 3 documented in this encounter Miscellaneous Notes * Telephone Encounter - Aurea Munson - 04/27/2013 1032 EDT Left message for pt to call and schedule OV. * Telephone Encounter - Michaela Moyer, RN - 04/27/2013 1014 EDT Per 09/04/12 office visit note, pt was to follow up in 4 months. Omeprazole prescription approved. * Telephone Encounter - Cleo Castle - 04/27/2013 1008 EDT Last Refill 05/05/12 Last Visit 09/04/12 (seen acutely since) Next Visit Not scheduled Out Fax request from the pharmacy documented in this encounter Plan of Treatment Not on file documented as of this encounter Visit Diagnoses Not on filedocumented in this encounter Discontinued Medications Medication Sig Discontinue Reason Start Date End Da te omeprazole (PRILOSEC) 20 mg capsule Take 1 Cap by mouth daily. Reorder 05/02/2012 04/25/2013 documented as of this encounter Care Teams Public Speaker Relationship Specialty Start Date End Date Roxanna Hannah MD [address] [place] [phone] PCP - General 03/28/09 05/31/20 documented as of this encounter
--- OUTSIDE RECORDS SUMMARY | 2024-10-06 13:50 | XMS_ITS | Encounter Summary ---
Author Organization [facility] Address [address] [place] [address] Care Team Providers Care Oncology Physician Assistant Name Role Phone Roxanna Hannah MD Primary Care Provider + Reason for Visit * Reason Onset Date Comments Medications Refill 05/09/2014 Encounter Details Date Type Department Care Team (Late st Contact Info) Description 05/09/2014 Refill [facility] Family Medicine [address] [address] Roxanna Hannah MD [address] [place] [phone] Medications Refill Social History Tobacco Use Types [...] * Telephone Encounter - Cleo Castle - 05/10/2014 1104 EDT Per [place] at [facility] Mail Order, patient is all set, please disregard documented in this encounter Plan of Treatment Not on file documented as of this encounter Goals Goal Patient Goal Type Associated Problems Recent Progress Patient-Stated? Author Blood Pressure < 130/80 Blood Pressure Hypertension 130/84(2019 8:53 EST) No Roxanna Hannah MD documented as of this encounter Visit Diagnoses Not on filedocumented in this encounter Care Teams Oncology Physician Assistant Relationship Specialty Start Date End Date Roxanna Hannah MD [address] [place] [phone] PCP - General 03/28/09 05/31/20 documented as of this encounter
--- OUTSIDE RECORDS SUMMARY | 2024-10-06 13:50 | XMS_ITS | Encounter Summary ---
Author Organization [facility] Address [address] [place] [address] Care Team Providers Care Cardiac Rehab Nurse Name Role Phone Roxanna Hannah MD Primary Care Provider + Reason for Visit * Reason Comments Shoulder Pain Left Medication Management Encounter Details Date Type Department Care Team (Late st Contact Info) Description 09/03/2012 10:00 EDT Office Visit [address] [id number] Roxanna Hannah MD [address] [place] [address] [phone] Need for influenza vaccination (Primary Dx); Hyperlipidemia; IGT (impaired glucose tolerance); Essential hypertension; Shoulder pain; Seizure disorder ([facility]) Social History Tobacco Use Types Packs/Day Years [...] Sign Reading Time Taken Comments Blood Pressure 134/84 09/03/2012 1004 EDT Pulse 72 09/03/2012 1004 EDT Temperature 36.4 ??C (97.5 ??F) 09/03/2012 1004 EDT Respiratory Rate - - Oxygen Saturation - - Inhaled Oxygen Concentration - - Weight 113.4 kg (250 lb) 09/03/2012 1004 EDT Wit h Shoes Height - - Body Mass Index 36.92 09/12/2011 0750 EDT documented in this encounter Ordered Prescriptions Prescription Sig Dispense Quantity Refills Last Filled Start Date End Date naproxen (NAPROSYN) 500 mg tablet Take 1 Tab by mouth 2 times daily with breakfast and dinner. 60 Tab 2 09/03/2012 2 documented in this encounter Progress Notes * Roxanna Hannah MD - 09/04/2012 1235 EDT Subjective: Patient ID: Mario Curry is an 57 y.o. male. Chief Complaint Patient presents with ??? Shoulder Pain Left ??? Medication Management Hypertension This is a chronic problem. The current episode started more than 1 year ago. The problem is unchanged. The problem is controlled. Pertinent negatives include no chest pain, headaches, malaise/fatigue, orthopnea, palpitations, peripheral edema or shortness of breath. There are no associated agents to hypertension. Risk factors for coronary artery disease include dyslipidemia, male gender and family history (IGT). Past treatments include diuretics. The current treatment provides moderate improvement of lipids. Compliance problems include exercise. There is no history of kidney disease, CAD/[place], heart failure or a thyroid problem. There is no history of chronic renal disease or sleep apnea. HLD - has been managed with diet and exercise only Labs have been good IGT - HgA1C 5.9-6.0 Manages with behavior changes only Shoulder pain s/p surg for recurrent dislocation > 10 yrs ago Sig arthritis and subluxation humeral head on XRAY in Jun Pain managed with Naprosyn 500 mg BID GERD no worse with this NSAID Also is very cautitious of positions or activities that make worse Seizure D/O - no recent seizures, on Depakote ER 1500 mg daily Patient Active Problem List Diagnoses ??? Routine General Medical Examination at Health Care Facility ??? Seizure Disorder ??? GERD (Gastroesophageal Reflux Disease) ??? Essential Hypertension ??? Hyperlipidemia ??? Allergic Rhinitis ??? Abnormal Glucose Tolerance Test ??? Erectile Dysfunction ??? Atypical chest pain ??? Impaired glucose tolerance ??? Depression ??? Anxiety ??? IGT (impaired glucose tolerance) Past Medical History Diagnosis Date ??? Erectile [...] to Visit Medication Sig Dispense Refill ??? divalproex (DEPAKOTE) 500 mg ER tablet [...] 1 Tab by mouth daily. ??? GLUCOSAMINE [id number] ORAL Take 1 Tab by mouth daily. Pt varies dosing ??? Cod Liver Oil Cap Take 1 Cap by mouth 2 times daily. Allergies Allergen Reactions ??? Tegretol (Carbamazepine) Rash Social History Substance Use Topics ??? Smoking status: Never Smoker ??? Smokeless tobacco: Never Used ??? Alcohol Use: Yes 2-3 drinks per week Review of Systems Constitutional: Negative for malaise/fatigue. Respiratory: Negative for shortness of breath. Cardiovascular: Negative for chest pain, palpitations and orthopnea. Neurological: Negative for headaches. - See HPI Objective: BP 134/84 Pulse 72 Temp(Src) 36.4 ??C (97.5 ??F) (Tympanic) Wt 113.399 kg (250 lb) Physical Exam Constitutional: He is oriented to person, place, and time. He appears well- developed and well-nourished. No distress. HENT: Head: Normocephalic and atraumatic. Eyes: Conjunctivae are normal. No scleral icterus. Neurological: He is alert and oriented to person, place, and time. Psychiatric: He has a normal mood and affect. Assessment: Plan: Mario was seen today for shoulder pain and medication management. Diagnoses and associated orders for this visit: Need for influenza vaccination - Influenza vaccine greater than or equal to 3yo split preservative free IM Hyperlipidemia Not on medications Continue behavioral changes Labs today - Comprehensive Metabolic Panel (CMP) - Lipid Profile (Includes Cholesterol, Triglycerides, HDL, LDL) Igt (impaired glucose tolerance) Reviewed behavioral modifications Discussed Dr. Oliveira's study, currently not interested Labs today - Comprehensive Metabolic Panel (CMP) - Hemoglobin A1c Essential hypertension At goal on HCTZ 12.5 mg daily Continue this plan Annual labs today - Comprehensive Metabolic Panel (CMP) Shoulder pain H/o recurrent dislocations remotely and surgical repair Recent shoulder XRAY showed mod-severe arthritis and subluxation humeral head Steroid injection last spring w/o relief Await ORTHO second opinion with Dr. Lorenzo, will try to get on cancellation list as appt not until later in SEP ([facility] appt would be even longer wait than [facility]) Seizure disorder Stable and seizure free for years Check annual Valproic acid level Con't Depakote ER 1500 mg daily - Valproic Acid Level Other Orders - naproxen (NAPROSYN) 500 mg tablet; Take 1 Tab by mouth 2 times daily with breakfast and dinner. Return in about 4 months (around 01/04/2013), or if symptoms worsen or fail to improve, for ROV. * Hunter Wan LPN - 09/03/2012 1008 EDT Patient is up to date with the Tdap Vaccine, last given, 07/11/2011 . Dion Patient Education Topic: Flu Vaccine given IM in the Left Deltoid this date without incident @ 1012. Method: Handout Taught to: Patient Barriers: None Outcomes: independent and verbalized understanding Signature: HUNTER WAN LPN Venipuncture performed for CMP,HBG A1c,Lipid Proflie, and a Valproic Acid Per orders of Dr. Hannah Diagnosis of 345.90,272.4,790.22 and 401.9 HUNTER WAN LPN documented in this encounter Plan of Treatment Not on file documented as of this encounter Procedures Procedure Name Priority Date/Time Associated Diagnosis Comments HEMOGLOBIN A1C Routine 09/03/2012 10:23 EDT IGT (impaired glucose tolerance) VALPROIC ACID LEVEL Routine 09/03/2012 1 0:23 EDT Seizure disorder (CMS-HCC) LIPID PROFILE (INCLUDES CHOLESTEROL, TRIGLYCERIDES, HDL, LDL) Routine 09/03/2012 10:23 EDT Hyperlipidemia COMPREHENSIVE METABOLIC PANEL (CMP) Routine 09/03/2012 10:23 EDT Hyperlipidemia IGT (impaired glucose tolerance) Essential hypertension documented in this encounter Results * VALPROIC ACID LEVEL (09/03/2012 10:23 EDT) Pathologist [facility] Valproic Acid 83.7 50.0 - 100.0 ug/ml [facility] Blood specimen (specimen) 09/03/2012 10:23 EDT 09/03/2012 18:20 EDT Roxanna Hannah MD CHEMISTRY & BLOOD GAS OR DERABLES Final Result [facility] [address] [place] [address] * LIPID PROFILE (INCLUDES CHOLESTEROL, TRIGLYCERIDES, HDL, LDL) (09/03/2012 10:23 EDT) Cholesterol 113 mg/dl [facility] Comment: Desirable:<200 Borderline High:200-239 High:>rn=246 Triglycerides 64 mg/dl [facility] Comment: Normal:<150 Borderline High:150-199 High:200-499 Very High:>ba=839 HDL 31 mg/dl [facility] Comment: Low:<40 Normal:40-60 Desirable: >60 LDL, Calculated 69 mg/dl [facility] Comment: Optimal:<100 Near Optimal:100-129 Borderline High:130-159 High:160-189 Very High:>gi=048 Chol/HDL Ratio 3.6 [facility] Fasting? Yes [facility] Blood specimen (specimen) 09/03/2012 10:23 EDT 09/03/2012 18:20 EDT Roxanna Hannah MD CHEMISTRY & BLOOD GAS OR DERABLES Final Result Performing Organization Address [facility] de Phone Number [facility] [address] [place] [address] * HEMOGLOBIN A1C (09/03/2012 10:23 EDT) Hemoglobin A1C 5.9 % [facility] Comment: Reference Range: <5.7% Normal 5.7-6.4% Increased risk for diabetes =>6.5% Diagnostic for diabetes (if confirmed) The A1c goal for non adults in general is <7%. The A1c goal for selected patients may be significantly lower than 7% if this can be achieved without significant hypoglycemia or other adverse effects of treatment. Est Avg Glucose 123 mg/dl [facility] Comment: eAG represents the A1c result expressed as average glucose in mg/dl. Blood specimen (specimen) 09/03/2012 10:23 EDT 09/03/2012 18:20 EDT Roxanna Hannah MD CHEMISTRY & BLOOD GAS OR DERABLES Final Result Performing Organization Address [facility] de Phone Number [facility] [address] [place] [address] * (ABNORMAL) COMPREHENSIVE METABOLIC PANEL (CMP) (09/03/2012 10:23 EDT) Potassium 5.1(H) 3.5 - 5.0 mEq/L [facility] Sodium 140 136 - 145 mEq/L [facility] Chloride 103 96 - 110 mEq/L [facility] CO2 26 24 - 32 mEq/L [facility] Total Alkaline Phosphatase 61 38 - 126 U/L [facility] Bilirubin, Total 0.8 0.2 - 1.3 mg/dl [facility] AST 35 15 - 46 U/L [facility] ALT 51 21 - 72 U/L [facility] Albumin 3.9 3.4 - 4.9 g/dl [facility] Total Protein 6.5 6.5 - 8.3 g/dl [facility] Creatinine 0.84 0.66 - 1.25 mg/dl [facility] GFR, Calculated >60 >60 ml/min/1.7 3m2 [facility] BUN 17 10 - 26 mg/dl [facility] Calcium 9.1 8.5 - 10.5 mg/dl [facility] Calculated Calcium 9.6 8.5 - 10.5 mg/dl [facility] Glucose, Serum 96 70 - 100 mg/dl [facility] Fasting? YES [facility] Blood specimen (specimen) 09/03/2012 10:23 EDT 09/03/2012 18:20 EDT Roxanna Hannah MD CHEMISTRY & BLOOD GAS OR DERABLES Final Result Performing Organization Address City/State/[facility] Co de Phone Number [facility] [address] [place] [address] documented in this encounter Visit Diagnoses Diagnosis Need for influenza vaccination- Primary Need for prophylactic vaccination and inoculation against influenza Hyperlipidemia Other and unspecified hyperlipidemia IGT (impaired glucose tolerance) Impaired glucose tolerance test Essential hypertension Unspecified essential hypertension Shoulder pain Pain in joint, shoulder region Seizure disorder (HCC-CMS) Unspecified epilepsy without mention of intractable epilepsy documented in this encounter Discontinued Medications Medication Sig Discontinue Reason Start Date End Da te naproxen (NAPROSYN) 500 mg tablet Take 1 Tab by mouth 2 times daily with breakfast and dinner. Reorder 08/22/2012 09/03/2012 documented as of this encounter Orders Immunization/Injection Count Last Ordered Date First Ordered Date INFLUENZA VACCINE =>3YO SPLI T PRESERVATIVE FREE IM 1 09/03/2012 documented in this encounter Care Teams Cardiac Rehab Nurse Relationship Specialty Start Date End Date Roxanna Hannah MD [address] [place] [phone] PCP - General 03/28/09 05/31/20 documented as of this encounter
--- OUTSIDE RECORDS SUMMARY | 2024-10-06 13:50 | XMS_ITS | Encounter Summary ---
Author Organization [facility] Address [address] [place] [address] Care Team Providers Care Pulley Worker Name Role Phone Roxanna Hannah MD Primary Care Provider + Reason for Visit * Reason Onset Date Comments Appointment Related 11/23/2013 Encounter Details Date Type Department Care Team (Late st Contact Info) Description 11/23/2013 Telephone [facility] Urology - [address] [phone] Kye Brown, DO [address] [facility], [address] [place] [phone] Appointment Related Social History Tobacco Use Types Packs/Day Years [...] encounter Miscellaneous Notes * Telephone Encounter - Enid Aguilera - 11/23/2013 1132 EST Follow up appointment scheduled with Dr. Brown. * Telephone Encounter - Basia Arshad - 11/23/2013 1051 EST Pt calling to schedule follow up appt with Dr. Brown. Please call. documented in this encounter Plan of Treatment Not on file documented as of this encounter Goals Goal Patient Goal Type Associated Problems Recent Progress Patient-Stated? Author Blood Pressure < 130/80 Blood Pressure Hypertension 130/84(2019 8:53 EST) No Roxanna Hannah MD documented as of this encounter Visit Diagnoses Not on filedocumented in this encounter Care Teams Pulley Worker Relationship Specialty Start Date End Date Roxanna Hannah MD [address] [place] [phone] PCP - General 03/28/09 05/31/20 documented as of this encounter
--- OUTSIDE RECORDS SUMMARY | 2024-10-06 13:50 | XMS_ITS | Encounter Summary ---
Author Organization [facility] Address [address] [place] [address] Care Team Providers Care Scrap Iron Cutter Name Role Phone Roxanna Hannah MD Primary Care Provider + Reason for Visit * Reason Comments Medications Refill Pt would like to rev iw all his medication today Encounter Details Date Type Department Care Team (Late st Contact Info) Description 10/27/2013 10:45 EST Office Visit [facility] Medicine [address] [address] Roxanna Hannah MD [address] [place] [address] [phone] Needs flu shot (Primary Dx); Essential hypertension; Gastroesophageal reflux disease; Impaired glucose tolerance; Hyperlipidemia; Seizure disorder (CMS-HCC); Tinnitus of left ear Social History Tobacco Use Types Packs/Day Years [...] Reading Time Taken Comments Blood Pressure 130/80 10/27/2013 1051 EST Pulse 68 10/27/2013 1051 EST Temperature 36.6 ??C (97.8 ??F) 10/27/2013 1051 EST Respiratory Rate 16 10/27/2013 1051 EST Oxygen Saturation - - Inhaled Oxygen Concentration - - Weight 99.8 kg (220 lb) 10/27/2013 1051 EST Height - - Body Mass Index 32.49 10/28/2012 1034 EST documented in this encounter Mental Status * Because of a physical, mental, or emotional condition, do you have serious difficulty concentrating, remembering, or making decisions? (5 years old or older) Answer Entry Date Author Yes 11/06/2012 16:17 EST Vaishali Rocha documented in this encounter Patient Instructions * Patient Instructions* Camryn Wise Angeles - 10/27/2013 10:57 EST [employer] Activation Thank you for your interest in [facility] patient portal, [facility]. Please follow the instructions below to set up your account. [facility] allows you to send messages to your doctor, view your test results, renew your prescriptions, request appointments, pay bills and more. How Do I Sign Up? 1. In your Internet browser, go to [email or web address] 2. Click on the Accept My Invitation Code link in the Set Up an Account box. You will see the page: Accept My Invitation. 3. Enter your [employer] Invitation Code exactly as it appears below. You will not need to use this code after you???ve completed the sign-up process. If you do not sign up before the expiration date, you must request a new code. [facility] Invitation Code: [email or web address] Expires: 12/26/2013 10:57 4. Enter your Date of (mm/dd/yyyy) as indicated and click Next. You will be taken to the nextpage to create your account. 5. Create a [employer] username. This will be your [employer] Online username and cannot be changed, sothink of one that is secure and easy to remember. 6. Create a [employer] Online password. You can change your password at any time. Enter your passwordagain to confirm it. 7. Enter your e-mail address. You will receive e-mail notifications when new information is available in [facility]. 8. Enter your security question and answer. These can be used at a later time if you forget your password. 9. Click Create Account. You can now view your medical record and billing information. If you have been granted proxy access to another patient's chart, you will see that patient listed under Family Records when you log into your [employer] Online account. Additional Information If you have questions, you can email Tabl or call to talk to our [employer] Customer Service Center, which is open 24 hours a day, 7 days a week. Remember, [facility] is NOT to be used for urgent needs. For medical emergencies, dial [phone]--1. TRIAL FLONASE and AGATA (or Claritin) every day for 4-6 weeks to see if helps left ear ringing CALL IF NO BETTER documented in this encounter Ordered Prescriptions Prescription Sig Dispense Quantity Refills Last Filled Start Date End Date fluticasone (FLONASE) 50 mcg/actuation nasal spray Instill 2 Sprays into both nostrils daily. 16 g 2 10/27/2013 omeprazole (PRILOSEC) 20 mg capsule TAKE 1 CAPSULE DAILY 90 Cap 3 10/27/2013 simvastatin (ZOCOR) 40 mg tablet Take 1 Tab by mouth every evening. 90 Each 3 10/27/2013 4 hydrochlorothiazid e (MICROZIDE) 12.5 mg capsule Take 1 Cap by mouth daily. 90 Cap 3 10/27/2013 4 documented in this encounter Progress Notes * Roxanna Hannah MD - 10/28/2013 0533 EST Subjective: Patient ID: Mario Curry is an 58 y.o. male. Chief Complaint Patient presents with ??? Medications Refill Pt would like to reviw all his medication today Hypertension This is a chronic problem. The current episode started more than 1 year ago. The problem is unchanged. The problem is controlled. Pertinent negatives include no chest pain, malaise/fatigue, orthopnea, palpitations, peripheral edema or shortness of breath. There are no associated agents to hypertension. Risk factors for coronary artery disease include dyslipidemia and family history (IGT). Past treatments include diuretics and lifestyle changes. The current treatment provides moderate improvement. Compliance problems include exercise. There is no history of kidney disease, CAD/OR, heart failure or a thyroid problem. There is no history of chronic renal disease or sleep apnea. HLD - JOSÉ MIGUEL chronic dose Zocor 40 mg No myalgias, paresthesias Due for fasting labs IGT - Has had HGA1C 5.9 last year Managed with diet alone Seizure D/O - no seizures in years On chronic stable dose Depakote, no recent dose change Due for Depakote level Does note Depakote can make him sleepy and even a bit dizzy still Does note worsening left tinnitus No ear pain, vertigo or hearing loss No sinus pressure or significant nasal congestion Non-smoker No sore throat Patient Active Problem List Diagnosis ??? Routine [...] Prescriptions on File Prior to Visit Medication Status Sig Dispense Refill ??? acetaminophen (TYLENOL) 650 mg tablet Active Take 1 Tab by mouth every 4 hours as needed for Pain. ??? aspirin 81 mg EC tablet Active Take 81 mg by mouth daily. ??? cyclobenzaprine (FLEXERIL) 5 mg tablet Active Take 1 Tab by mouth every 8 hours as needed for Muscle Spasms. 30 Tab 1 ??? divalproex (DEPAKOTE) 500 mg delayed release tablet Active Take 3 capsules at bedtime 270 Tab 3 ??? MULTIVITAMINS (MULTI-VITAMIN ORAL) Active Take 1 Tab by mouth daily. No current facility-administered medications on file prior to visit. Allergies Allergen Reactions ??? Tegretol (Carbamazepine) Rash Social History Substance Use Topics ??? Smoking status: Never Smoker ??? Smokeless tobacco: Never Used ??? Alcohol Use: Yes 2-3 drinks per week Review of Systems Constitutional: Negative for malaise/fatigue. Respiratory: Negative for shortness of breath. Cardiovascular: Negative for chest pain, palpitations and orthopnea. - See HPI Objective: BP 130/80 Pulse 68 Temp(Src) 36.6 ??C (97.8 ??F) (Oral) Resp 16 Wt 99.791 kg (220 lb) BMI32.47 kg/m2 Physical Exam Constitutional: He appears well-developed and well-nourished. No distress. HENT: Head: Normocephalic and atraumatic. Right Ear: External ear normal. Mouth/Throat: Oropharynx is clear and moist. No oropharyngeal exudate. No sinus TTP Left TM early and small inferior serous bubbles Eyes: Conjunctivae are normal. No scleral icterus. Neck: Neck supple. Lymphadenopathy: He has no cervical adenopathy. Neurological: He is alert. Psychiatric: He has a normal mood and affect. Assessment: Plan: Mario was seen today for medications refill. Diagnoses and associated orders for this visit: Needs flu shot - Influenza vaccine greater than or equal to 3yo split preservative free IM Essential hypertension At goal Continue diet changes and HCTX 12.5 mg daily Annual labs - Comprehensive Metabolic Panel (CMP) Gastroesophageal reflux disease Stable as long as uses daily PPI No change Impaired glucose tolerance HgA1C last year 5.9 Managed with diet only Re-check today - Hemoglobin A1c Hyperlipidemia At goal with Zocor 40 mg Labs due today - Lipid Profile (Includes Cholesterol, Triglycerides, HDL, LDL) Seizure disorder COntrolled with Depakote No recent seizures - Comprehensive Metabolic Panel (CMP) - Valproic Acid Level - Hemagram Tinnitus of left ear, without vertigo or hearing loss Unilat MILD serous OM, non-smoker Will have him treat aggressively with Flonase and Claritin or Agata If no better consider ENT REF Other Orders - omeprazole (PRILOSEC) 20 mg capsule; TAKE 1 CAPSULE DAILY - hydrochlorothiazide (MICROZIDE) 12.5 mg capsule; Take 1 Cap by mouth daily. - simvastatin (ZOCOR) 40 mg tablet; Take 1 Tab by mouth every evening. - fluticasone (FLONASE) 50 mcg/actuation nasal spray; Instill 2 Sprays into both nostrils daily. Return in about 3 months (around 01/25/2014), or if symptoms worsen or fail to improve, for ROV. * Camryn Wise - 10/27/2013 1055 EST Patient Education Topic: Flu VIS Method: Handout and Verbal Taught to: Patient Barriers: None Outcomes: independent Patient Education Topic: [employer] Method: Handout and Verbal Taught to: Patient Barriers: None Outcomes: independent Signature: Camryn Wise Venipuncture performed for CMP, LIPID, A1C, VALPROIC ACID and CBC Per orders of Dr Hannah Diagnosis of 345.90, 272.4, 790.22, Camryn Wise documented in this encounter Plan of Treatment Not on file documented as of this encounter Goals Goal Patient Goal Type Associated Problems Recent Progress Patient-Stated? Author Blood Pressure < 130/80 Blood Pressure Hypertension 130/84(2019 8:53 EST) No Roxanna Hannah MD documented as of this encounter Procedures Procedure Name Priority Date/Time Associated Diagnosis Comments COMPLETE BLOOD COUNT Routine 10/27/2013 11:47 EST Seizure disorder (CMS-HCC) HEMOGLOBIN A1C Routine 10/27/2013 11:47 EST Impaired glucose tolerance VALPROIC ACID LEVEL Routine 10/27/2013 1 1:47 EST Seizure disorder (CMS-HCC) LIPID PROFILE (INCLUDES CHOLESTEROL, TRIGLYCERIDES, HDL, LDL) Routine 10/27/2013 11:47 EST Hyperlipidemia COMPREHENSIVE METABOLIC PANEL (CMP) Routine 10/27/2013 11:47 EST Essential hypertension Seizure disorder (CMS-HCC) documented in this encounter Results * HEMAGRAM (10/27/2013 11:47 EST) WBC 6.11 4.0 - 10.4 K/cmm [facility] RBC 5.16 4.36 - 5.78 M/cmm [facility] Hemoglobin 16.5 13.8 - 17.3 gm/dl [facility] HCT 48.6 39.5 - 50.2 % [facility] MCV 94 81 - 95 fl [facility] MCH 31.9 27.6 - 33.0 pg [facility] MCHC 33.8 32.8 - 36.4 gm/dl [facility] PLT 181 141 - 320 K/cmm [facility] RDW-CV 13.9 11.8 - 14.1 % [facility] Blood specimen (specimen) 10/27/2013 11:47 EST 10/27/2013 18:23 EST us Roxanna Hannah MD HEMATOLOGY & PF4 ORDERAB LES Final Result Performing Organization Address [facility] Co de Phone Number [facility] [address] [place] [address] * (ABNORMAL) VALPROIC ACID LEVEL (10/27/2013 11:47 EST) Valproic Acid 106.5(H) 50.0 - 100.0 ug/ml [facility] Blood specimen (specimen) 10/27/2013 11:47 EST 10/27/2013 18:23 EST us Roxanna Hannah MD CHEMISTRY & BLOOD GAS OR DERABLES Final Result Performing Organization Address [facility] Co de Phone Number [facility] [address] [place] [address] * COMPREHENSIVE METABOLIC PANEL (CMP) (10/27/2013 11:47 EST) Pathologist [facility] [place] Potassium 4.3 3.5 - 5.0 mEq/L [facility] Sodium 142 136 - 145 mEq/L [facility] Chloride 101 96 - 110 mEq/L [facility] CO2 28 24 - 32 mEq/L [facility] Total Alkaline Phosphatase 62 38 - 126 U/L [facility] Bilirubin, Total 0.9 0.2 - 1.3 mg/dl [facility] AST 26 15 - 46 U/L [facility] ALT 34 21 - 72 U/L [facility] Albumin 4.5 3.4 - 4.9 g/dl [facility] Total Protein 7.5 6.5 - 8.3 g/dl [facility] Creatinine 0.69 0.66 - 1.25 mg/dl [facility] GFR, Calculated >60 >60 ml/min/1.7 3m2 [facility] BUN 17 10 - 26 mg/dl [facility] Calcium 9.6 8.5 - 10.5 mg/dl [facility] Calculated Calcium 9.5 8.5 - 10.5 mg/dl [facility] Glucose, Serum 98 70 - 100 mg/dl [facility] Fasting? Unknown [facility] Blood specimen (specimen) 10/27/2013 11:47 EST 10/27/2013 18:23 EST Roxanna Hannah MD CHEMISTRY & BLOOD GAS OR DERABLES Final Result Performing Organization Address City/State/[facility] Co de Phone Number [facility] [address] [place] [address] * LIPID PROFILE (INCLUDES CHOLESTEROL, TRIGLYCERIDES, HDL, LDL) (10/27/2013 11:47 EST) Pathologist [facility] [place] Cholesterol 138 mg/dl [facility] Comment: Desirable:<200 Borderline High:200-239 High:>yk=908 Triglycerides 96 mg/dl [facility] Comment: Normal:<150 Borderline High:150-199 High:200-499 Very High:>yn=910 HDL 34 mg/dl [facility] Comment: Low:<40 Normal:40-60 Desirable: >60 LDL, Calculated 85 mg/dl [facility] Comment: Optimal:<100 Near Optimal:100-129 Borderline High:130-159 High:160-189 Very High:>ae=724 Chol/HDL Ratio 4.1 [facility] Fasting? Unknown [facility] Non HDL Cholesterol 104 mg/dl [facility] Comment: Desirable:<130 Borderline:130-159 High: 160-189 Very High: >cy=935 Blood specimen (specimen) 10/27/2013 11:47 EST 10/27/2013 18:23 EST Roxanna Hannah MD CHEMISTRY & BLOOD GAS OR DERABLES Final Result Performing Organization Address [facility] de Phone Number [facility] [address] [place] [address] * HEMOGLOBIN A1C (10/27/2013 11:47 EST) Hemoglobin A1C 5.8 % [facility] Comment: Reference Range: <5.7% Normal 5.7-6.4% Increased risk for diabetes =>6.5% Diagnostic for diabetes (if confirmed) The A1c goal for non adults in general is <7%. The A1c goal for selected patients may be significantly lower than 7% if this can be achieved without significant hypoglycemia or other adverse effects of treatment. Est Avg Glucose 120 mg/dl [facility] Comment: eAG represents the A1c result expressed as average glucose in mg/dl. Blood specimen (specimen) 10/27/2013 11:47 EST 10/27/2013 18:23 EST Roxanna Hannah MD CHEMISTRY & BLOOD GAS OR DERABLES Final Result Performing Organization Address [facility] de Phone Number [facility] [address] [place] [address] documented in this encounter Visit Diagnoses Diagnosis Needs flu shot- Primary Need for prophylactic vaccination and inoculation against influenza Essential hypertension Unspecified essential hypertension Gastroesophageal reflux disease Esophageal reflux Impaired glucose tolerance Impaired glucose tolerance test Hyperlipidemia Other and unspecified hyperlipidemia Seizure disorder (HCC-CMS) Unspecified epilepsy without mention of intractable epilepsy Tinnitus of left ear Unspecified tinnitus documented in this encounter Discontinued Medications Medication Sig Discontinue Reason Start Date End Da te omeprazole (PRILOSEC) 20 mg capsule TAKE 1 CAPSULE DAILY Reorder 08/27/2013 10/27/2013 hydrochlorothiazide (MICROZIDE) 12.5 mg capsule Take 1 Cap by mouth daily. Reorder 07/17/2013 10/27/2013 simvastatin (ZOCOR) 40 mg tablet Take 1 Tab by mouth every evening. Reorder 07/17/2013 10/27/2013 documented as of this encounter Orders Immunization/Injection Count Last Ordered Date First Ordered Date INFLUENZA VACCINE =>3YO SPLI T PRESERVATIVE FREE IM 1 10/27/2013 documented in this encounter Care Teams Scrap Iron Cutter Relationship Specialty Start Date End Date Roxanna Hannah MD [address] [place] [address] [phone] PCP - General 03/28/09 05/31/20 documented as of this encounter
--- OUTSIDE RECORDS SUMMARY | 2024-10-06 13:50 | XMS_ITS | Encounter Summary ---
Author Organization [facility] Address [address] [place] [address] Care Team Providers Care Color Matcher Name Role Phone Roxanna Hannah MD Primary Care Provider + Reason for Visit * Reason Onset Date Comments Appointment Related 03/11/2014 Encounter Details Date Type Department Care Team (Late st Contact Info) Description 03/11/[address] [facility] Urology - [address] [phone] Kye Brown, DO [address] [facility], [address] [place] [phone] Appointment Related Social History Tobacco [...] * Telephone Encounter - Enid Aguilera - 03/11/2014 1458 EDT POV is scheduled with Dr. Brown on 04/07/14 at 2:15. documented in this encounter Plan of Treatment Not on file documented as of this encounter Goals Goal Patient Goal Type Associated Problems Recent Progress Patient-Stated? Author Blood Pressure < 130/80 Blood Pressure Hypertension 130/84(2019 8:53 EST) No Roxanna Hannah MD documented as of this encounter Visit Diagnoses Not on filedocumented in this encounter Care Teams Color Matcher Relationship Specialty Start Date End Date Roxanna Hannah MD [address] [place] [phone] PCP - General 03/28/09 05/31/20 documented as of this encounter
--- OUTSIDE RECORDS SUMMARY | 2024-10-06 13:51 | XMS_ITS | Encounter Summary ---
Author Organization [facility] Address [address] [place] [address] Care Team Providers Care Ribbon Cutter Name Role Phone Roxanna Hannah MD Primary Care Provider + Encounter Details Date Type Department Care Team (Late st Contact Info) Description 08/03/2010 Abstract Used for ABSTRACTING Data [phone] Roxanna Hannah MD [address] [place] [phone] Social History Tobacco Use Types Packs/Day Years [...] on filedocumented in this encounter Care Teams Ribbon Cutter Relationship Specialty Start Date End Date Roxanna Hannah MD [address] [place] [address] [phone] PCP - General 03/28/09 05/31/20 documented as of this encounter
--- OUTSIDE RECORDS SUMMARY | 2024-10-06 13:51 | XMS_ITS | Encounter Summary ---
Author Organization [facility] Address [address] [place] [address] Care Team Providers Care Fire Crew Specialist Name Role Phone Roxanna Hannah MD Primary Care Provider + Reason for Visit * Reason Onset Date Comments Other 12/14/2010 Encounter Details Date Type Department Care Team (Late st Contact Info) Description 12/14/2010 Telephone [facility] Gastroenterology - [address] [phone] Mitch Ash MD [address] [facility], [address] [place] [phone] Other Social History Tobacco Use Types Packs/Day [...] on file documented as of this encounter Miscellaneous Notes * Telephone Encounter - Camryn Eubanks - 12/14/2010 1613 EST Left messages for pt to sched colonoscopy with . No return Call. Referral filed documented in this encounter Plan of Treatment Not on file documented as of this encounter Visit Diagnoses Not on filedocumented in this encounter Care Teams Fire Crew Specialist Relationship Specialty Start Date End Date Roxanna Hannah MD [address] [place] [phone] PCP - General 03/28/09 05/31/20 documented as of this encounter
--- OUTSIDE RECORDS SUMMARY | 2024-10-06 13:51 | XMS_ITS | Encounter Summary ---
Author Organization [facility] Address [address] [place] [address] Care Team Providers Care Blasting Clay Miner Name Role Phone Roxanna Hannah MD Primary Care Provider + Reason for Referral * (Routine) - Closed Specialty Diagnoses / Procedures Referred By Contac t Referred To Contact Diagnoses Shoulder pain Procedures SHOULDER 2 OR MORE VIEWS Roxanna Hannah MD Phone: tel: fax: Referral ID Status Reason Start Date Expiration Date Visits Re quested Visits Authorized [id number] Closed 10/03/2011 1 1 Reason for Visit * Reason Comments Shoulder Pain left shoulder pain;s tated he felt P.T. was not helping Encounter Details Date Type Department Care Team (Late st Contact Info) Description 10/03/2011 12:30 EST Office Visit [facility] Family Medicine [address] [phone] Roxanna Hannah MD [address] [place] [address] [phone] Shoulder pain (Primary Dx); Impaired glucose tolerance Social History Tobacco Use [...] Sign Reading Time Taken Comments Blood Pressure 126/80 10/03/2011 1238 EST Pulse 80 10/03/2011 1238 EST Temperature 36.8 ??C (98.3 ??F) 10/03/2011 1238 EST Respiratory Rate - - Oxygen Saturation - - Inhaled Oxygen Concentration - - Weight 109.8 kg (242 lb) 10/03/2011 1238 EST Height - - Body Mass Index 35.74 09/12/2011 0750 EDT documented in this encounter Progress Notes * Roxanna Hannah MD - 10/05/2011 0839 EST S: here to f/u on left shoulder pain S/p recurrent dislocations years ago and surgical repair with Dr. Salazar in [facility] > 10 yrs ago Has been going to PT but not very helpful. Pain and ROM issue remain but can function just enough to get through his days No NEW weakness or paresthesias Also has IGT. Last fasting sugar in Jul. Is trying to watch diet more O: BP 126/80 Pulse 80 Temp(Src) 36.8 ??C (98.3 ??F) (Oral) Wt 109.77 kg (242 lb) Gen - well INAD Left shoulder - ABduction to 120 degrees A?P Left shoulder pain and mild ROM limitations Left shoulder XRAY to assess DJD Discussed ortho ref but wants to image first No pain meds necessary No longer going to PT but should continue exercise to keep ROM where it is IGT - con't diet changes Should have biannual fasting glucose and at least once annual HgA1C F/u 3 mos or sooner prn documented in this encounter Plan of Treatment Scheduled Orders Name Type Priority Associated Diagnoses Orde r Schedule SHOULDER 2 OR MORE VIEWS Imaging Routine Shoulder pain Ordered: 10/03/2011 documented as of this encounter Visit Diagnoses Diagnosis Shoulder pain- Primary Pain in joint, shoulder region Impaired glucose tolerance Impaired glucose tolerance test documented in this encounter Discontinued Medications Medication Sig Discontinue Reason Start Date End Da te PEG 3350-Electrolytes (GOLYTELY) Take 4 L by mouth. Instructions mailed once procedure scheduled. Questions: Angelo Alcantar GI Dept.: [phone] or GI Doctor's Office. Therapy completed 07/11/2011 10/03/2011 documented as of this encounter Care Teams Blasting Clay Miner Relationship Specialty Start Date End Date Roxanna Hannah MD [address] [place] [address] [phone] PCP - General 03/28/09 05/31/20 documented as of this encounter
--- OUTSIDE RECORDS SUMMARY | 2024-10-06 13:51 | XMS_ITS | Encounter Summary ---
Author Organization [facility] Address [address] [place] [address] Care Team Providers Care Take Out Waiter/Waitress Name Role Phone Roxanna Hannah MD Primary Care Provider + Encounter Details Date Type Department Care Team (Late st Contact Info) Description 01/30/2011 Abstract Used for ABSTRACTING Data [phone] Edi Florian MD [address] [phone] Social History Tobacco Use Types Packs/Day Years [...] on filedocumented in this encounter Care Teams Take Out Waiter/Waitress Relationship Specialty Start Date End Date Roxanna Hannah MD [address] [place] [phone] PCP - General 03/28/09 05/31/20 documented as of this encounter
--- OUTSIDE RECORDS SUMMARY | 2024-10-06 13:51 | XMS_ITS | Encounter Summary ---
Author Organization [facility] Address [address] [place] [address] Care Team Providers Care Correctional Officer Name Role Phone Roxanna Hannah MD Primary Care Provider + Reason for Visit * Reason Onset Date Comments Medication Problem 04/02/2011 Encounter Details Date Type Department Care Team (Late st Contact Info) Description 04/02/2011 Refill [facility] Family Medicine [address] [address] Roxanna Hannah MD [address] [place] [phone] Medication Problem Social History Tobacco Use Types Packs/Day Years [...] End Date omeprazole (PRILOSEC) 20 mg capsule Take 1 Cap by mouth daily. 30 Cap 0 04/02/2011 07/11/2011 omeprazole (PRILOSEC) 20 mg capsule Take 1 Cap by mouth daily. 90 Cap 3 04/02/2011 07/11/2011 documented in this encounter Miscellaneous Notes * Telephone Encounter - Aurea Stevens - 04/02/2011 1427 EDT Pt needs refill of Omeprazole, he should have a refill left at [facility]. but they don't have record of that. He would like a refill at [facility] in [place] as well because he is out. Last Refill Date 07.04.10 Last Visit Date 02.13.11 Next Visit Date none Is patient out of medication? yes documented in this encounter Plan of Treatment Not on file documented as of this encounter Visit Diagnoses Not on filedocumented in this encounter Discontinued Medications Medication Sig Discontinue Reason Start Date End Da te omeprazole (PRILOSEC) 20 mg capsule Take 1 Cap by mouth daily. Reorder 07/12/2010 04/02/2011 documented as of this encounter Care Teams Correctional Officer Relationship Specialty Start Date End Date Roxanna Hannah MD [address] [place] [phone] PCP - General 03/28/09 05/31/20 documented as of this encounter
--- OUTSIDE RECORDS SUMMARY | 2024-10-06 13:51 | XMS_ITS | Encounter Summary ---
Author Organization [facility] Address [address] [place] [address] Care Team Providers Care Slot Floor Supervisor Name Role Phone Roxanna Hannah MD Primary Care Provider + Reason for Visit * Reason Onset Date Comments Colonoscopy 07/31/2011 Encounter Details Date Type Department Care Team (Late st Contact Info) Description 07/31/2011 Telephone [facility] Gastroenterology - [address] [phone] José Miguel Rosa MD [address] [facility], [address] [place] [address] Colonoscopy Social History Tobacco Use Types Packs/Day [...] Miscellaneous Notes * Telephone Encounter - Heydi Hoffmann - 07/31/2011 9641 EDT PT SCHEDULED WITH DR. ROSA 09/12/2011. documented in this encounter Plan of Treatment Not on file documented as of this encounter Visit Diagnoses Not on filedocumented in this encounter Care Teams Slot Floor Supervisor Relationship Specialty Start Date End Date Roxanna Hannah MD [address] [place] [phone] PCP - General 03/28/09 05/31/20 documented as of this encounter
--- OUTSIDE RECORDS SUMMARY | 2024-10-06 13:51 | XMS_ITS | Encounter Summary ---
Author Organization [facility] Address [address] [place] [address] Care Team Providers Care Aeronautical Engineering Professor Name Role Phone Roxanna Hannah MD Primary Care Provider + Reason for Visit * Reason Onset Date Comments Back Pain 02/08/2011 Encounter Details Date Type Department Care Team (Late st Contact Info) Description 02/08/2011 Telephone [facility] Family Medicine - [address] [phone] Roxanna Hannah MD [address] [place] [phone] Back Pain Social History Tobacco Use Types Packs/Day Years [...] Telephone Encounter - Jasmin Lino RN - 02/08/2011 1045 EDT Mario called I have Pain that shoots from a 1 to a 10 in a brief second and then lasts for a few minutes and then goes away. Pain radiates from the middle of my back up into the right shoulder and down my right arm and occ, into my neck. I loose control when this happens. Ov 02/13/11 to address * Telephone Encounter - Isaura Ray - 02/08/2011 1021 EDT Patient was in to see Dr Linares on 01/16/11 for back pain. Patient did have an MRI and received Dr Linares's letter dated 01/30/11 stating MRI was normal. He states that obviously something is not right because he is still having a lot of pain. Would like to discuss with Dr Hannah. Please advise. documented in this encounter Plan of Treatment Not on file documented as of this encounter Visit Diagnoses Not on filedocumented in this encounter Care Teams Aeronautical Engineering Professor Relationship Specialty Start Date End Date Roxanna Hannah MD [address] [place] [phone] PCP - General 03/28/09 05/31/20 documented as of this encounter
--- OUTSIDE RECORDS SUMMARY | 2024-10-06 13:51 | XMS_ITS | Encounter Summary ---
Author Organization [facility] Address [address] [place] [address] Care Team Providers Care Site Coordinator Name Role Phone Roxanna Hannah MD Primary Care Provider + Encounter Details Date Type Department Care Team (Late st Contact Info) Description 08/02/2010 Results Only [facility] Urology - [facility] [address] [place], [place] [address] Kye Brown, DO [address] [facility], [address] [place] [address] Social History Tobacco Use Types Packs/Day Years [...] Procedure Name Priority Date/Time Associated Diagnosis Comments TESTOSTERONE Routine 08/02/2010 15:06 EDT PSA TOTAL, DIAGNOSTIC Routine 08/02/2010 15:06 EDT documented in this encounter Results * (ABNORMAL) TESTOSTERONE (08/02/2010 15:06 EDT) Testosterone, Total 199(L) 241 - 827 ng/dL [facility] Blood specimen (specimen) 08/02/2010 15:06 EDT 08/02/2010 15:20 EDT Kye Brown DO CHEMISTRY & BLOOD GAS ORDER TSERING Final Result Performing Organization Address [facility] Co de Phone Number [facility] [address] [place] [address] * PSA (08/02/2010 15:06 EDT) Pathologist [facility] PSA 0.6 0 - 3.5 ng/ml [facility] Comment: ??Serum PSA concentration should not be interpreted as absolute evidence for the presence or absence of malignant disease. ?? Assayed utilizing [employer] chemiluminescent technology. Values obtained by using different assay methods cannot be used interchangeably. Blood specimen (specimen) 08/02/2010 15:06 EDT 08/02/2010 15:20 EDT Kye Patton Perelana DO CHEMISTRY & BLOOD GAS ORDER TSERING Final Result Performing Organization Address [facility] Co de Phone Number [facility] [address] [place] [address] documented in this encounter Visit Diagnoses Not on filedocumented in this encounter Care Teams Site Coordinator Relationship Specialty Start Date End Date Roxanna Hannah MD [address] [place] [phone] PCP - General 03/28/09 05/31/20 documented as of this encounter
--- OUTSIDE RECORDS SUMMARY | 2024-10-06 13:51 | XMS_ITS | Encounter Summary ---
Author Organization [facility] Address [address] [place] [address] Care Team Providers Care Thread Trimmer Name Role Phone Roxanna Hannah MD Primary Care Provider + Reason for Visit * Reason Comments Back Pain Mario is here for a follow-up on his chronic upper right back pain. He had previous films done that showed vertebral fractures. He now notes that he has been getting pain that goes down his right arm. Encounter Details Date Type Department Care Team (Late st Contact Info) Description 01/16/2011 14:30 EST Office Visit [facility] Family Medicine - [address] [address] Unknown, Provider, MD Perkins, MD Vijay Miller, Jl Reynoso MD [address] [facility] [facility] [address] [place] [address] Need for influenza vaccine (Primary Dx); Back pain Social History Tobacco Use Types Packs/Day Years [...] Reading Time Taken Comments Blood Pressure 128/84 01/16/2011 1431 EST Pulse 72 01/16/2011 1431 EST Temperature 36.7 ??C (98.1 ??F) 01/16/2011 1431 EST Respiratory Rate - - Oxygen Saturation - - Inhaled Oxygen Concentration - - Weight 108.9 kg (240 lb) 01/16/2011 1431 EST Height - - Body Mass Index - - documented in this encounter Ordered Prescriptions Prescription Sig Dispense Quantity Refills Last Filled Start Date End Date gabapentin (NEURONTIN) 100 mg capsuleIndications: Back pain Take 1 Cap by mouth daily. 90 Cap 2 01/16/2011 02/13/2011 documented in this encounter Progress Notes * Jl Linares - 01/16/2011 1534 EST Subjective: Patient ID: Mario Curry is an 55 y.o. male. Chief Complaint Patient presents with ??? Back Pain Mario is here for a follow-up on his chronic upper right back pain. He had previous films done that showed vertebral fractures. He now notes that he has been getting pain that goes down his right arm. Back Pain This is a chronic problem. Episode onset: unknown; h/o compression fx (thinks T4 and T11) The problem occurs 2 to 4 times per day. The problem has been gradually worsening since onset. The pain is present in the thoracic spine and lumbar spine. The quality of the pain is described as shooting, cramping and aching. Radiates to: right arm. The pain is moderate. The symptoms are aggravated by bending and twisting. Stiffness is present in the morning. Associated symptoms include numbness (ulnar nerve right hand') and weakness (fleeting right hand). He has tried NSAIDs and analgesics for the symptoms. Patient Active Problem List Diagnoses Code ??? Routine General Medical Examination at Health Care Facility V70.0A ??? Seizure Disorder 345.90DQ ??? GERD (Gastroesophageal Reflux Disease) 530.81S ??? Essential Hypertension 401.9AD ??? Hyperlipidemia 272.4S ??? Allergic Rhinitis 477.9AD ??? Abnormal Glucose Tolerance Test 790.22J ??? Erectile Dysfunction 607.84D Past Medical History Diagnosis Date ??? Erectile dysfunction ??? Abnormal glucose tolerance test 03/09/2009 ??? Allergic rhinitis 03/19/2007 ??? Hyperlipidemia 01/31/2005 ??? Essential hypertension 10/24/2004 ??? Seizure disorder 08/05/2002 ??? Routine general medical examination at health care facility 08/05/2002 ??? GERD (gastroesophageal reflux disease) 08/05/2002 Current outpatient prescriptions ordered prior to encounter Medication Sig Dispense Refill ??? divalproex (DEPAKOTE) 500 mg ER tablet Take 3 Tabs by mouth daily. Brand name 270 Tab 3 ??? omeprazole (PRILOSEC) 20 mg capsule Take 1 Cap by mouth daily. 90 Cap 3 ??? simvastatin (ZOCOR) 40 mg tablet Take 1 Tab by mouth daily. 90 Each 3 ??? hydrochlorothiazide (MICROZIDE) 12.5 mg capsule Take 1 Cap by mouth daily. 90 Each 3 ??? MULTIVITAMINS (MULTI-VITAMIN ORAL) Take 1 Tab by mouth daily. ??? ibuprofen (MOTRIN) 200 mg tablet Take 400-800 mg by mouth every 6 hours as needed. ??? GLUCOSAMINE [id number] ORAL Take 1 Tab by mouth daily. Pt varies dosing ??? Cod Liver Oil Cap Take 1 Cap by mouth 2 times daily. Allergies Allergen Reactions ??? Tegretol (Carbamazepine) Rash Social History Substance Use Topics ??? Smoking status: Never Smoker ??? Smokeless tobacco: Never Used ??? Alcohol Use: Yes 2-3 drinks per week Review of Systems Musculoskeletal: Positive for back pain (pt reports on/off shooting pain, positional, but unpredictable with radiculopathy of right UE). Neurological: Positive for weakness (fleeting right hand) and numbness (ulnar nerve right hand'). - See HPI Objective: BP 128/84 Pulse 72 Temp(Src) 36.7 ??C (98.1 ??F) (Oral) Wt 108.863 kg (240 lb) Physical Exam Nursing note and vitals reviewed. Constitutional: He appears well-developed and well-nourished. Musculoskeletal: Normal range of motion. Right shoulder: He exhibits normal range of motion, no tenderness, no bony tenderness, no swelling,no effusion, no crepitus, no deformity, no laceration, no pain, no spasm, normal pulse and normal strength. Assessment: Plan: Mario was seen today for back pain. Diagnoses and associated orders for this visit: Need for influenza vaccine - Influenza vaccine greater than or equal to 3yo split preservative free IM Back pain - gabapentin (NEURONTIN) 100 mg capsule; Take 1 Cap by mouth daily. - MR THORACIC SPINE WO CONTRAST - No narcotics given Jl Linares MD Attestation statement: I discussed the patient with the resident/fellow at the time of the visit and agree with the findings and plan of care. Pradeep Perkins MD, MD 01/16/2011 15:42 Attestation statement: I discussed the patient with the resident/fellow at the time of the visit and agree with the findings and the plan of care documented in the resident's/fellow's note. Pradeep Perkins MD, MD 01/18/2011 8:36 documented in this encounter Plan of Treatment Not on file documented as of this encounter Procedures Procedure Name Priority Date/Time Associated Diagnosis Comments MR THORACIC SPINE WO CONTRAST 01/26/2011 22:05 EST Back pain documented in this encounter Results * MR THORACIC SPINE WO CONTRAST (01/26/2011 22:05 EST) Anatomical Region Laterality Modality Other 01/26/2011 22:0 5 EST 01/27/2011 9:42 EST Narrative 01/27/2011 9:42 EST MR THORACIC SPINE WO/CONTRAST ??Jan 26, 2011 10:05:00 PM Signs and Symptoms/Comments: ??724.5-BACK PAIN-I9 back pain since 2009, s/p verterbral fx, with radiculopathy of right UE Technique: Multiplanar T1 and T2-weighted fast spin echo imaging of the thoracic spine performed without intravenous contrast ministration. Findings: Thoracic spinal cord signal intensity is normal. No occult vertebral fractures are seen. No evidence of cord compression is identified at any level. No paraspinous soft tissue masses are seen. Impression: No evidence for an acute compression fracture in the thoracic spine is seen. Procedure Note 01/27/2011 MR THORACIC SPINE WO/CONTRAST Jan 26, 2011 10:05:00 PM Signs and Symptoms/Comments: 724.5-BACK PAIN-I9 back pain since 2009, s/p verterbral fx, with radiculopathy of right UE Technique: Multiplanar T1 and T2-weighted fast spin echo imaging of the thoracic spine performed without intravenous contrast ministration. Findings: Thoracic spinal cord signal intensity is normal. No occult vertebral fractures are seen. No evidence of cord compression is identified at any level. No paraspinous soft tissue masses are seen. Impression: No evidence for an acute compression fracture in the thoracic spine is seen. Pradeep Perkins MD IMG MRI ORDERABLES Final Result documented in this encounter Visit Diagnoses Diagnosis Need for influenza vaccine- Primary Need for prophylactic vaccination and inoculation against influenza Back pain Backache, unspecified documented in this encounter Discontinued Medications Medication Sig Discontinue Reason Start Date End Da te aspirin 325 mg tablet Take 325 mg by mouth daily. Dose adjustment 01/16/2011 tramadol (ULTRAM) 50 mg tablet Take 1 Tab by mouth every 6 hours as needed for Pain. Therapy completed 07/19/2010 01/16/2011 documented as of this encounter Historical Medications * This list may reflect changes made after this encounter. aspirin 81 mg EC tablet Take 1 Tablet by mouth daily. added in this encounter Orders Immunization/Injection Count Last Ordered Date First Ordered Date INFLUENZA VACCINE =>3YO SPLI T PRESERVATIVE FREE IM 1 01/16/2011 documented in this encounter Care Teams Thread Trimmer Relationship Specialty Start Date End Date Roxanna Hannah MD [address] [place] [phone] PCP - General 03/28/09 05/31/20 documented as of this encounter
--- OUTSIDE RECORDS SUMMARY | 2024-10-06 13:51 | XMS_ITS | Encounter Summary ---
Author Organization [facility] Address [address] [place] [address] Care Team Providers Care Painter Railroad Car Name Role Phone Roxanna Hannah MD Primary Care Provider + Reason for Visit * Reason Onset Date Comments Pharmacy 07/16/2011 Encounter Details Date Type Department Care Team (Late st Contact Info) Description 07/16/[address] [phone] Roxanna Hannah MD [address] [place] [phone] Pharmacy Social History Tobacco Use Types Packs/Day [...] Telephone Encounter - Roxanna Hannah MD - 07/17/2011 0617 EDT Yes ok for generic depakote i signed the form already on sat am 07/14 * Telephone Encounter - Isaura Ray - 07/16/2011 1203 EDT [employer] calling, states they faxed over a request to change this patients depakote from brand name to generic. The brand is $600 and the generic is $24. Ref # [id number] documented in this encounter Plan of Treatment Not on file documented as of this encounter Visit Diagnoses Not on filedocumented in this encounter Care Teams Painter Railroad Car Relationship Specialty Start Date End Date Roxanna Hannah MD [address] [place] [phone] PCP - General 03/28/09 05/31/20 documented as of this encounter
--- OUTSIDE RECORDS SUMMARY | 2024-10-06 13:51 | XMS_ITS | Encounter Summary ---
Author Organization [facility] Address [address] [place] [address] Care Team Providers Care Restaurant Team Member Name Role Phone Roxanna Hannah MD Primary Care Provider + Encounter Details Date Type Department Care Team (Late st Contact Info) Description 09/21/2010 Orders Only [facility] Urology - [facility] [address] [place] [address] Kye Brown, DO [address] [facility], [address] [place] [phone] Scrotal varices; Unspecified hydrocele; Hematospermia Social History Tobacco Use Types Packs/Day Years [...] of this encounter Visit Diagnoses Diagnosis Scrotal varices Hydrocele, unspecified Hematospermia documented in this encounter Care Teams Restaurant Team Member Relationship Specialty Start Date End Date Roxanna Hannah MD [address] [place] [phone] PCP - General 5/4/09 7/7/20 documented as of this encounter
--- OUTSIDE RECORDS SUMMARY | 2024-10-06 13:51 | XMS_ITS | Encounter Summary ---
Author Organization [facility] Address [address] [place] [address] Care Team Providers Care Vanstone Machine Operator Name Role Phone Roxanna Hannah MD Primary Care Provider + Reason for Visit * Reason Comments Back Pain pt is here to follow -up on some upper back pain, pt notes that there has not been a change in these symptoms Encounter Details Date Type Department Care Team (Late st Contact Info) Description 07/26/2010 12:30 EDT Office Visit [address] [phone] Roxanna Hannah MD [address] [place] [phone] Thoracic back pain (Primary Dx) Social History Tobacco Use [...] Sign Reading Time Taken Comments Blood Pressure 118/82 07/26/2010 1222 EDT Pulse 72 07/26/2010 1222 EDT Temperature 36.7 ??C (98 ??F) 07/26/2010 1222 EDT Respiratory Rate - - Oxygen Saturation - - Inhaled Oxygen Concentration - - Weight 103.4 kg (228 lb) 07/26/2010 1222 EDT Height - - Body Mass Index - - documented in this encounter Progress Notes * Roxanna Hannah MD - 07/27/2010 1210 EDT S: here to f/u on right sided upper back pain with some radicular component. No cough, SOB, chest pain. No real upper ext weakness or paresthesias but at times rigth 4th-5th fingers numb. Pain is seemingly worse over the course of the summer. Afraid will drop box at work etc. Has not yet had T-spine XR at [facility] (thought he was going to get called with appt time) O: BP 118/82 Pulse 72 Temp(Src) 36.7 ??C (98 ??F) (Oral) Wt 103.42 kg (228 lb) Gen - well INAD Neck - supple, no inc LN Lungs - CTAB CV- RR. No M/R/G Back - no T-spine point tenderness, no paraspinal spasm appreciated. No vesicles or rash A/P Right upper thoracic spine pain - need to start with XR T-spine (explained he needs to bring req with him but can walk in) Likely will need further imaging to eval nerve root compression, disc herniation, etc.... Will f/u by phone after XR, otherwise 3 mos or sooner prn documented in this encounter Plan of Treatment Not on file documented as of this encounter Visit Diagnoses Diagnosis Thoracic back pain- Primary Pain in thoracic spine documented in this encounter Care Teams Vanstone Machine Operator Relationship Specialty Start Date End Date Roxanna Hannah MD [address] [place] [phone] PCP - General 03/28/09 05/31/20 documented as of this encounter
--- OUTSIDE RECORDS SUMMARY | 2024-10-06 13:51 | XMS_ITS | Encounter Summary ---
Author Organization [facility] Address [address] [place] [address] Care Team Providers Care Field Coordinator Name Role Phone Roxanna Hannah MD Primary Care Provider + Encounter Details Date Type Department Care Team (Late st Contact Info) Description 08/25/2009 Abstract [facility] Family Medicine [address] [address] Roxanna Hannah MD [address] [place] [phone] Routine General Medical Examination at Health Care Facility; Seizure Disorder ([facility]); GERD (Gastroesophageal Reflux Disease); Essential Hypertension; Hyperlipidemia; Allergic Rhinitis; Abnormal Glucose Tolerance Test; Erectile Dysfunction Social History Tobacco Use Types Packs/Day Years Used Date Smoking Tobacco: Never Assessed Sex and Gender Information Value Date Recorded Sex Assigned at Not on file Legal Sex Male 18:06 EST Gender Identity Male 12/31/2019 13:46 EST Sexual Orientation Not on file documented as of this encounter Plan of Treatment Not on file documented as of this encounter Visit Diagnoses Diagnosis Routine general medical examination at health care facility Routine general medical examination at a health care facility Seizure disorder ([facility]) Unspecified epilepsy without mention of intractable epilepsy GERD (gastroesophageal reflux disease) Esophageal reflux Essential hypertension Unspecified essential hypertension Hyperlipidemia Other and unspecified hyperlipidemia Allergic rhinitis Allergic rhinitis, cause unspecified Abnormal glucose tolerance test Impaired glucose tolerance test Erectile dysfunction Impotence of organic origin documented in this encounter Historical Medications * This list may reflect changes made after this encounter. MULTIVITAMINS (MULTI-VITAMIN ORAL) Take 1 Tab by mouth daily. lisinopril (PRINIVIL, ZESTRIL) 5 mg tablet Take 5 mg by mouth daily. 01/16/2010 hydrochlorothiazi de (MICROZIDE) 12.5 mg capsule Take 12.5 mg by mouth daily. 07/12/2010 fexofenadine (VALERIA) 180 mg tablet Take 180 mg by mouth daily. 01/16/2010 aspirin 325 mg tablet Take 325 mg by mouth daily. 01/16/2011 simvastatin (ZOCOR) 40 mg tablet Take 40 mg by mouth daily. 07/12/2010 Cod Liver Oil Cap Take 1 Cap by mouth 2 times daily. 01/16/2011 11/07/2012 GLUCOSAMINE [id number] T ORAL Take 1 Tab by mouth daily. Pt varies dosing 11/07/2012 ibuprofen (MOTRIN) 200 mg tablet Take 400-800 mg by mouth every 6 hours as needed. 01/16/2011 07/23/2012 omeprazole (PRILOSEC) 20 mg capsule Take 20 mg by mouth daily. 01/24/2010 divalproex (DEPAKOTE) 500 mg EC tablet Take 500 mg by mouth daily. 3 tabs 07/12/2010 added in this encounter Care Teams Field Coordinator Relationship Specialty Start Date End Date Roxanna Hannah MD [address] [place] [phone] PCP - General 03/28/09 05/31/20 documented as of this encounter
--- OUTSIDE RECORDS SUMMARY | 2024-10-06 13:51 | XMS_ITS | Encounter Summary ---
Author Organization [facility] Address [address] [place] [address] Care Team Providers Care Chief Passenger Ship Steward/Stewardess Name Role Phone Roxanna Hannah MD Primary Care Provider + Reason for Visit * Reason Comments Anxiety follow up on medicat ion. Stopped Zoloft on own due to dizziness, tremors. Hypertension dizziness. conc erned over blood pressure Encounter Details Date Type Department Care Team (Late st Contact Info) Description 12/12/2011 10:45 EST Office Visit [address] [id number] Roxanna Hannah MD [address] [place] [address] [phone] Anxiety (Primary Dx); Essential hypertension; IGT (impaired glucose tolerance) Social History Tobacco [...] Sign Reading Time Taken Comments Blood Pressure 134/88 12/12/2011 1102 EST Pulse 68 12/12/2011 1102 EST Temperature 36.3 ??C (97.3 ??F) 12/12/2011 1102 EST Respiratory Rate 12 12/12/2011 1102 EST Oxygen Saturation - - Inhaled Oxygen Concentration - - Weight 108.4 kg (239 lb) 12/12/2011 1102 EST wit h shoes Height - - Body Mass Index 35.29 09/12/2011 0750 EDT documented in this encounter Patient Instructions * Patient Instructions* Roxanna Hannah MD - 12/12/2011 11:28 EST Monitor home BPs 3-4 times weekly Record Values and bring to next office visit documented in this encounter Progress Notes * Terri Garcia LPN - 12/12/2011 1147 EST Venipuncture done for labs ordered per Dr. Hannah, without incident. * Roxanna Hannah MD - 12/12/2011 1129 EST Subjective: Patient ID: Mario Curry is an 56 y.o. male. Chief Complaint Patient presents with ??? Anxiety follow up on medication. Stopped Zoloft on own due to dizziness, tremors. ??? Hypertension dizziness. concerned over blood pressure Hypertension This is a chronic problem. The current episode started more than 1 year ago. The problem is unchanged. The problem is controlled. Pertinent negatives include no chest pain, headaches, orthopnea, palpitations, peripheral edema or shortness of breath. There are no associated agents to hypertension. Risk factors for coronary artery disease include male gender, obesity and dyslipidemia (IGT). Past treatments include diuretics. There is no history of kidney disease, CAD/DE, heart failure or a thyroid problem. There is no history of chronic renal disease. was concerned about a couple of elevated diastolic BPs at home Mood ok now that Grandson Freddie NOT being deported Did not tolerate Zoloft due to tremors Sleeping fine No self harm thoughts or other safety concerns Patient Active Problem List Diagnoses ??? Routine General Medical Examination at Health Care Facility ??? Seizure Disorder ??? GERD (Gastroesophageal Reflux Disease) ??? Essential Hypertension ??? Hyperlipidemia ??? Allergic Rhinitis ??? Abnormal Glucose Tolerance Test ??? Erectile Dysfunction ??? Atypical chest pain ??? Impaired glucose tolerance ??? Depression ??? Anxiety Past Medical History Diagnosis Date ??? Erectile [...] to Visit Medication Sig Dispense Refill ??? hydrochlorothiazide (MICROZIDE) 12.5 mg capsule Take 1 Cap by mouth daily. 90 Cap 3 ??? omeprazole (PRILOSEC) 20 mg capsule Take 1 Cap by mouth daily. 90 Cap 3 ??? divalproex (DEPAKOTE) 500 mg ER tablet Take 3 Tabs by mouth daily. Brand name 270 Tab 3 ??? simvastatin (ZOCOR) 40 mg tablet Take 1 Tab by mouth daily. 90 Each 3 ??? aspirin 81 mg EC tablet Take 81 mg by mouth daily. ??? MULTIVITAMINS (MULTI-VITAMIN ORAL) Take 1 Tab by mouth daily. ??? ibuprofen (MOTRIN) 200 mg tablet Take 400-800 mg by mouth every 6 hours as needed. ??? GLUCOSAMINE [id number] ORAL Take 1 Tab by mouth daily. Pt varies dosing ??? Cod Liver Oil Cap Take 1 Cap by mouth 2 times daily. Allergies Allergen Reactions ??? Tegretol (Carbamazepine) Rash Social History Substance Use Topics ??? Smoking status: Never Smoker ??? Smokeless tobacco: Not on file ??? Alcohol Use: Yes 2-3 drinks per week Review of Systems Respiratory: Negative for shortness of breath. Cardiovascular: Negative for chest pain, palpitations and orthopnea. Neurological: Negative for headaches. - See HPI Objective: BP 134/88 Pulse 68 Temp(Src) 36.3 ??C (97.3 ??F) (Tympanic) Resp 12 Wt 108.41 kg (239 lb) Physical Exam Vitals reviewed. Constitutional: He appears well-developed and well-nourished. No distress. HENT: Head: Normocephalic and atraumatic. Eyes: Conjunctivae are normal. No scleral icterus. Assessment: Plan: Mario was seen today for anxiety and hypertension. Diagnoses and associated orders for this visit: Anxiety Better now that stressfulk situation resolved Did not tolerate Zoloft due to tremors Hold off on anxiety Rx at this time Monitor for return of symptoms Essential hypertension At goal now Had a few home DBPs that were mild elevated Continue current HCTZ 12.5 mg daily CMP and FLP today F/u 2 mos or sooner prn documented in this encounter Plan of Treatment Not on file documented as of this encounter Procedures Procedure Name Priority Date/Time Associated Diagnosis Comments BASIC METABOLIC PANEL (BMP) Routine 12/12/2011 11:31 EST IGT (impaired glucose tolerance) documented in this encounter Results * (ABNORMAL) BASIC METABOLIC PANEL (12/12/2011 11:31 EST) Sodium 143 136 - 145 mEq/L [facility] Potassium 5.2(H) 3.5 - 5.0 mEq/L [facility] Chloride 101 96 - 110 mEq/L [facility] CO2 30 24 - 32 mEq/L [facility] BUN 20 10 - 26 mg/dl [facility] Creatinine 0.91 0.66 - 1.25 mg/dl [facility] GFR, Calculated >60 >60 ml/min/1.7 3m2 [facility] Calcium 9.7 8.5 - 10.5 mg/dl [facility] Calculated Calcium 9.9 8.5 - 10.5 mg/dl [facility] Glucose, Serum 101(H) 70 - 100 mg/dl [facility] Fasting? Unknown [facility] Blood specimen (specimen) 12/12/2011 11:31 EST 12/12/2011 17:40 EST us Roxanna Hannah MD CHEMISTRY & BLOOD GAS OR DERABLES Final Result [facility] [address] [place] [address] documented in this encounter Visit Diagnoses Diagnosis Anxiety- Primary Anxiety state, unspecified Essential hypertension Unspecified essential hypertension IGT (impaired glucose tolerance) Impaired glucose tolerance test documented in this encounter Discontinued Medications Medication Sig Discontinue Reason Start Date End Da te lorazepam (ATIVAN) 1 mg tabletIndications:Depre ssion,Anxiety Take 0.5 Tabs by mouth 2 times daily. Therapy completed 10/30/2011 12/12/2011 sertraline (ZOLOFT) 100 mg tabletIndications:Depre ssion,Anxiety Take 1 Tab by mouth daily. Patient Stopped Taking 11/20/2011 12/12/2011 documented as of this encounter Care Teams Chief Passenger Ship Steward/Stewardess Relationship Specialty Start Date End Date Roxanna Hannah MD [address] [place] [phone] PCP - General 03/28/09 05/31/20 documented as of this encounter
--- OUTSIDE RECORDS SUMMARY | 2024-10-06 13:51 | XMS_ITS | Encounter Summary ---
Author Organization [facility] Address [address] [place] [address] Care Team Providers Care Refining Equipment Operator Name Role Phone Roxanna Hannah MD Primary Care Provider + Encounter Details Date Type Department Care Team (Late st Contact Info) Description 01/22/2011 Abstract [facility] Family Medicine [address] [address] Roxanna Hannah MD [address] [place] [phone] Social History Tobacco Use Types Packs/Day Years [...] on filedocumented in this encounter Care Teams Refining Equipment Operator Relationship Specialty Start Date End Date Roxanna Hannah MD [address] [place] [phone] PCP - General 03/28/09 05/31/20 documented as of this encounter
--- OUTSIDE RECORDS SUMMARY | 2024-10-06 13:51 | XMS_ITS | Encounter Summary ---
Author Organization [facility] Address [address] [place] [address] Care Team Providers Care Tooling Engineering Tech Name Role Phone Roxanna Hannah MD Primary Care Provider + Reason for Visit * Reason Onset Date Comments Medication Questions 03/01/2011 Encounter Details Date Type Department Care Team (Late st Contact Info) Description 03/01/2011 Telephone [facility] Medicine [address] [phone] Roxanna Hannah MD [address] [place] [phone] Medication Questions Social History Tobacco Use Types Packs/Day Years [...] Telephone Encounter - Roxanna Hannah MD - 03/06/2011 6958 EDT Would be best to wean down to dose that does NOT cause grogginess but still some pain relief ratherthan stopping entirely * Telephone Encounter - Rashid Navarrete MD - 03/01/2011 1429 EDT Can taper off. Should schedule follow up. Thanks, Rashid Navarrete MD * Telephone Encounter - Jasmin Lino RN - 03/01/2011 1415 EDT Mario called I feel Doopy, foggy And dizzy worse in the am, milder as the day progresses. The other day i couldn't remember my name. I am up to 600 mg total per day. I does help some with the nerve pain about the same as ibuprofen. I don't want to stay on it anymore. Should I taper off of it? Or just stop it? * Telephone Encounter - Chari Patterson - 03/01/2011 1025 EDT Patient was given RX for Gabapentin for back pain. Says he is experiencing confusion, dizziness andevery other side effect associated with this medication. Would like to discuss with nurse. Please call. documented in this encounter Plan of Treatment Not on file documented as of this encounter Visit Diagnoses Not on filedocumented in this encounter Care Teams Tooling Engineering Tech Relationship Specialty Start Date End Date Roxanna Hannah MD [address] [place] [address] [phone] PCP - General 03/28/09 05/31/20 documented as of this encounter
--- OUTSIDE RECORDS SUMMARY | 2024-10-06 13:51 | XMS_ITS | Encounter Summary ---
Author Organization [facility] Address [address] [place] [address] Care Team Providers Care Software Manager Name Role Phone Roxanna Hannah MD Primary Care Provider + Unknown, Provider Primary Care Provider Unava Roxanna Francis MD Primary Care Provider + Rebeca Garcia Primary Care Provider + Reason for Visit * Reason Comments Other Encounter Details Date Type Department Care Team (Late st Contact Info) Description 07/05/2011 Refill [facility] Family Medicine [address] [phone] Roaxnna Hannah MD [address] [place] [address] [phone] Other Social History Tobacco Use Types Packs/Day [...] TAKE 1 CAPSULE DAILY 90 Cap 0 07/05/2011 1 documented in this encounter Miscellaneous Notes * Telephone Encounter - Chari Patterson - 07/05/2011 1634 EDT LEFT MESSAGE FOR PATIENT TO CALL AND SCHEDULE ROV documented in this encounter Plan of Treatment Not on file documented as of this encounter Visit Diagnoses Not on filedocumented in this encounter Additional Health Concerns Infection Onset Date Last Indicated Resolved Time COVID-19 03/22/2022 03/22/2022 04/11/2022 22:1 5 EDT documented as of this encounter Care Teams Software Manager Relationship Specialty Start Date End Date Roxanna Hannah MD [address] [place] [phone] PCP - General 03/28/09 05/31/20 Unknown, Provider, [address] [place] [phone] PCP - General 06/01/20 09/11/20 Roxanna Hannah MD [address] [place] [phone] PCP - General Family Medicine - Primary Care 09/12/20 12/08/20 Rebeca Garcia PA [address] [place] [phone] PCP - General 11/25/21 documented as of this encounter
--- OUTSIDE RECORDS SUMMARY | 2024-10-06 13:51 | XMS_ITS | Encounter Summary ---
Author Organization [facility] Address [address] [place] [address] Care Team Providers Care Papeterie Table Assembler Name Role Phone Roxanna Hannah MD Primary Care Provider + Encounter Details Date Type Department Care Team (Late st Contact Info) Description 07/18/2011 Abstract [facility] Family Medicine [address] [address] Roxanna Hannah MD [address] [place] [phone] Social History Tobacco Use Types Packs/Day Years [...] on filedocumented in this encounter Care Teams Papeterie Table Assembler Relationship Specialty Start Date End Date Roxanna Hannah MD [address] [place] [phone] PCP - General 03/28/09 05/31/20 documented as of this encounter
--- OUTSIDE RECORDS SUMMARY | 2024-10-06 13:51 | XMS_ITS | Encounter Summary ---
Author Organization [facility] Address [address] [place] [address] Care Team Providers Care Cotton Cleaner Name Role Phone Roxanna Hannah MD Primary Care Provider + Reason for Referral * Consult (Routine) - Closed Specialty Diagnoses / Procedures Referred By Nela rbavo Referred To Contact Urology Diagnoses Erectile dysfunction Hematospermia Roxanna Hannah MD Phone: tel: fax: Kye Brown DO Phone: tel: fax: Referral ID Status Reason Start Date Expiration Date V isits Requested Visits Authorized [id number] Closed Specialty Services Required 01/16/2010 1 1 Question Answer Reason for Request: Erectile Dysfunction, hematospermia Comments Viagra not helpful, slightly low testosterone Reason for Visit * Reason Comments Other Having blood in seme n for a few days Encounter Details Date Type Department Care Team (Late st Contact Info) Description 01/16/2010 13:00 EST Office Visit [facility] Family Medicine [address] [address] Roxanna Hannah MD [address] [place] [phone] Hematospermia; Erectile dysfunction Social History Tobacco Use Types Packs/Day Years [...] Sign Reading Time Taken Comments Blood Pressure 140/82 01/16/2010 1255 EST Pulse 68 01/16/2010 1255 EST Temperature 36.3 ??C (97.4 ??F) 01/16/2010 1255 EST Respiratory Rate - - Oxygen Saturation - - Inhaled Oxygen Concentration - - Weight 106.1 kg (234 lb) 01/16/2010 1255 EST Height - - Body Mass Index - - documented in this encounter Progress Notes * Roxanna Hannah MD - 01/16/2010 1405 EST Subjective: Patient ID: Mario Curry is an 54 y.o. male. Chief Complaint: Hematospermia HPI Here for acute visit. Last week noted light bloody tinge to semen. Has erectile dysfunction, Viagranot helpful. Has low normal testosterone levels. Not often sexually active. No fevers/chills/myalgias/hematuria/dysuria/penile discharge. No back pain, stool changes. Never noted hematospermia in past. No recent surgery, including prostate surg/biopsy. Past Medical History Diagnosis Date ??? Erectile dysfunction ??? Abnormal glucose tolerance test 03/09/2009 ??? Allergic rhinitis 03/19/2007 ??? Hyperlipidemia 01/31/2005 ??? Essential hypertension 10/24/2004 ??? Seizure disorder 08/05/2002 ??? Routine general medical examination at health care facility 08/05/2002 ??? GERD (gastroesophageal reflux disease) 08/05/2002 History reviewed. No pertinent family history. Current outpatient prescriptions Medication Sig Dispense Refill ??? divalproex (DEPAKOTE) 500 mg EC tablet Take 500 mg by mouth daily. 3 tabs ??? omeprazole (PRILOSEC) 20 mg capsule Take 20 mg by mouth daily. ??? MULTIVITAMINS (MULTI-VITAMIN ORAL) Take by mouth daily. ??? ibuprofen (MOTRIN) 200 mg tablet Take 200 mg by mouth as needed for Pain. 2 tabs ??? GLUCOSAMINE [id number] ORAL Take by mouth daily. 1 tab ??? Cod Liver Oil Cap Take by mouth daily. ??? simvastatin (ZOCOR) 40 mg tablet Take 40 mg by mouth daily. ??? hydrochlorothiazide (MICROZIDE) 12.5 mg capsule Take 12.5 mg by mouth daily. ??? aspirin 325 mg tablet Take 325 mg by mouth daily. Has not been using ASA recently Allergies Allergen Reactions ??? Tegretol (Carbamazepine) Rash History Social History ??? Marital Status: Spouse Name: N/A Number of Children: N/A ??? Years of Education: N/A Occupational History ??? Not on file. Social History Main Topics ??? Tobacco Use: Never ??? Alcohol Use: Yes 2-3 drinks per week ??? Drug Use: Not on file ??? Sexually Active: Yes -- Female partner(s) Other Topics Concern ??? Not on file Social History Narrative ??? No narrative on file Review of Systems Constitutional: Negative. Negative for fever, chills, weight loss and malaise/fatigue. HENT: Negative. Respiratory: Negative. Cardiovascular: Negative. Gastrointestinal: Negative. Genitourinary: Negative. Negative for dysuria, urgency, frequency, hematuria and flank pain. Skin: Negative. Objective: Physical Exam Nursing note and vitals reviewed. Constitutional: He appears well-developed and well-nourished. No distress. HENT: Head: Normocephalic and atraumatic. Eyes: Conjunctivae are normal. Neck: Neck supple. No thyromegaly present. Abdominal: Soft. Bowel sounds are normal. He exhibits no distension and no mass. No tenderness. Hernia confirmed negative in the right inguinal area and confirmed negative in the left inguinal area. Genitourinary: Prostate normal, testes normal and penis normal. Prostate is not enlarged and not tender. Right testis shows no mass, no tenderness. Left testis shows no mass, no tenderness. Uncircumcised. No penile erythema or penile tenderness. No discharge found. Lymphadenopathy: He has no cervical adenopathy. Right: No inguinal adenopathy present. Left: No inguinal adenopathy present. Assessment: Encounter Diagnoses Code Name Primary? Qualifier ??? 608.82 Hematospermia Plan: POCT URINE DIPSTICK, AMB CONSULT UROLOGY ??? 607.84D Erectile dysfunction Plan: AMB CONSULT UROLOGY Plan: Urine dip neg, doubt prostatitis. Likely Benign REf to urology due to erectile dysfunction and low normal testosterone F/u prn or 2 mos documented in this encounter Plan of Treatment Pending Results Name Type Priority Associated Diagnoses Date /Time POCT URINE DIPSTICK Point of Care Testing Routine Hematospermia 01/16/2010 13:44 EST Scheduled Referrals Name Type Priority Associated Diagnoses Orde r Schedule AMB CONSULT UROLOGY Outpatient Referral Routine Erectile Dysfunction Hematospermia Ordered: 01/16/2010 documented as of this encounter Visit Diagnoses Diagnosis Hematospermia Erectile dysfunction Impotence of organic origin documented in this encounter Discontinued Medications Medication Sig Discontinue Reason Start Date End Da te lisinopril (PRINIVIL, ZESTRIL) 5 mg tablet Take 5 mg by mouth daily. Therapy completed 01/16/2010 fexofenadine (VALERIA) 180 mg tablet Take 180 mg by mouth daily. Patient Stopped Taking 01/16/2010 documented as of this encounter Care Teams Cotton Cleaner Relationship Specialty Start Date End Date Roxanna Hannah MD [address] [place] [phone] PCP - General 03/28/09 05/31/20 documented as of this encounter
--- OUTSIDE RECORDS SUMMARY | 2024-10-06 13:51 | XMS_ITS | Encounter Summary ---
Author Organization [facility] Address [address] [place] [address] Care Team Providers Care Oracle Developer Name Role Phone Roxanna Hannah MD Primary Care Provider + Reason for Referral * Consult (Routine) - Closed Specialty Diagnoses / Procedures [facility] Referred To Contact Diagnoses Shoulder pain Arthritis of shoulder region, left Roxanna Hannah MD Phone: tel: fax: [facility] [address] [place] [address] Referral ID Status Reason Start Date Expiration Date V isits Requested Visits Authorized [id number] Closed Specialty Services Required 01/01/2012 1 1 Question Answer Reason for Request: left shoulder arthritis, pain and ROM limitations Comments 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 Salazar [facility] Reason for Visit * Reason Comments Blood Sugar Problem Here to follow up on blood sugar. Shoulder Pain Pain. Wants to discu ss having an MRI. Encounter Details Date Type Department Care Team (Late st Contact Info) Description 01/01/2012 10:00 EST Office Visit [facility] Family Medicine - [address] [address] Roxanna Hannah MD [address] [place] [place] [phone] Impaired glucose tolerance; Shoulder pain; Arthritis of shoulder region, left Discharge Disposition: Auto Discharge Social History Tobacco [...] Sign Reading Time Taken Comments Blood Pressure 120/68 01/01/2012 1005 EST Pulse 72 01/01/2012 1005 EST Temperature 36.6 ??C (97.8 ??F) 01/01/2012 1005 EST Respiratory Rate 16 01/01/2012 1005 EST Oxygen Saturation - - Inhaled Oxygen Concentration - - Weight 111.6 kg (246 lb) 01/01/2012 1005 EST wit h shoes Height - - Body Mass Index 36.33 09/12/2011 0750 EDT documented in this encounter Discharge Disposition Disposition Code Departure Means Destination Auto Discharge documented in this encounter Progress Notes * Roxanna Hannah MD - 01/01/2012 1031 EST S: here for 2 reasons Left shoulder pain, getting worse. 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 Burkett (?) Pain getting worse over past 1 year. Cannot lift > few lbs overhead or even with ext rotation Went through PT, no real improvement Occ left 3rd finger sharp and shooting pains XRAY [facility] Fall 2010, showed mod degenerative changes and anterior slipping Also to discuss IGT Has had fasting glucose 109 in Fall, repeat last month 101 No real exercise in routine, not much energy Diet is ok, no regular ETOH, juices, soda or sugared coffee Last HgA1C in 2008 < 6.0 O: BP 120/68 Pulse 72 Temp(Src) 36.6 ??C (97.8 ??F) (Oral) Resp 16 Wt 111.585 kg (246 lb) Gen - well INAD A/P Left shoulder pain, arthritis, likely from old traumas and dislocations ORTHO ref , prefers [facility] Consider steroid injection Might need MRI imaging IGT - reviewed diet and exercise changes H/O given Consider CHT ref HgA1C in 4 mos prior to appt documented in this encounter Plan of Treatment Scheduled Referrals Name Type Priority Associated Diagnoses Order Schedule AMB CONSULT ORTHOPEDICS Outpatient Referral Routine Shoulder pain Arthritis of shoulder region, left Ordered: 01/01/2012 documented as of this encounter Visit Diagnoses Diagnosis Impaired glucose tolerance Impaired glucose tolerance test Shoulder pain Pain in joint, shoulder region Arthritis of shoulder region, left Unspecified arthropathy, shoulder region documented in this encounter Care Teams Oracle Developer Relationship Specialty Start Date End Date Roxanna Hannah MD [address] [place] [address] [phone] PCP - General 03/28/09 05/31/20 documented as of this encounter
--- OUTSIDE RECORDS SUMMARY | 2024-10-06 13:51 | XMS_ITS | Encounter Summary ---
Author Organization [facility] Address [address] [place] [address] Care Team Providers Care Corporate Pilot Name Role Phone Roxanna Hannah MD Primary Care Provider + Encounter Details Date Type Department Care Team (Late st Contact Info) Description 09/12/2011 - 09/12/2011 9:35 EDT Hospital Encounter [facility] Endoscopy Outpatient [address] [place] [address] José Miguel Rosa MD [address] [facility] [address] [place] [address] Discharge Disposition: Home or Self Care Social [...] Sign Reading Time Taken Comments Blood Pressure 140/80 09/12/2011918 EDT Pulse 73 09/12/2011918 EDT Temperature 35.8 ??C (96.4 ??F) 09/12/2011 0753 EDT Respiratory Rate 16 09/12/2011918 EDT Oxygen Saturation 95% 09/12/2011918 EDT Inhaled Oxygen Concentration - - Weight 106.6 kg (235 lb) 09/12/2011 075 EDT Height 175.3 cm (5' 9) 09/12/2011749 EDT Body Mass Index 34.7 09/12/2011749 EDT documented in this encounter Medications at Time of Discharge aspirin 81 mg EC tablet Take 1 Tablet by mouth daily. MULTIVITAMINS (MULTI-VITAMIN ORAL) Take 1 Tab by mouth daily. Cod Liver Oil Cap Take 1 Cap by mouth 2 times daily. 01/16/2011 2 divalproex (DEPAKOTE) 500 mg ER tablet Take 3 Tabs by mouth daily. Brand name 270 Tab 3 07/11/2011 2 GLUCOSAMINE [id number] IT ORAL Take 1 Tab by mouth daily. Pt varies dosing 2 hydrochlorothiaz gene (MICROZIDE) 12.5 mg capsule Take 1 Cap by mouth daily. 90 Cap 3 07/11/2011 2 ibuprofen (MOTRIN) 200 mg tablet Take 400-800 mg by mouth every 6 hours as needed. 01/16/2011 2 omeprazole (PRILOSEC) 20 mg capsule Take 1 Cap by mouth daily. 90 Cap 3 07/11/2011 2 PEG 3350-Electrolyte s (GOLYTELY) Take 4 L by mouth. Instructions mailed once procedure scheduled. Questions: Angelo [facility] GI Dept.: [phone] or GI Doctor's Office. 4 L 0 07/11/2011 1 simvastatin (ZOCOR) 40 mg tablet Take 1 Tab by mouth daily. 90 Each 3 07/11/2011 2 documented as of this encounter Discharge Disposition Disposition Code Departure Means Destination Home or Self Care documented in this encounter H&P Notes * José Miguel Rosa MD - 09/12/2011 0818 EDT Sedation for Procedure History & Physical Date: 09/12/2011 Time: 8:18 Location: [address] Planned Procedure: Colonoscopy Chief Complaint/Indications for Procedure: screening History Previous Complication with Sedation and/or Anesthesia? No Allergies: Allergies Allergen Reactions ??? Tegretol (Carbamazepine) Rash Current Medications: (Not in a hospital admission) Past Medical History: Past Medical History Diagnosis Date ??? Erectile dysfunction ??? Abnormal glucose tolerance test 03/09/2009 ??? Allergic rhinitis 03/19/2007 ??? Hyperlipidemia 01/31/2005 ??? Essential hypertension 10/24/2004 ??? Seizure disorder 08/05/2002 ??? Routine general medical examination at health care facility 08/05/2002 ??? GERD (gastroesophageal reflux disease) 08/05/2002 ??? Seizures Social History: Past Surgical History Procedure Date ??? Cholecystectomy R shoulder yael Dr. Terence Johnson ??? Shoulder surgery s/p dislocation History Substance Use Topics ??? Smoking status: Never Smoker ??? Smokeless tobacco: Not on file ??? Alcohol Use: Yes 2-3 drinks per week Family History: Family History Problem Relation Age of Onset ??? Stroke Father ??? Breast Cancer Neg Hx ??? Colon Cancer Neg Hx ??? Colon Polyps Neg Hx ??? Endometrial Cancer Neg Hx ??? Esophageal Cancer Neg Hx ??? Ovarian Cancer Neg Hx ??? Pancreatic Cancer Neg Hx ??? Rectal Cancer Neg Hx ??? Stomach Cancer Neg Hx Review of Systems as pertinent: Physical Exam Vital Signs: Resp 16 Ht 175.3 cm (69) Wt 106.595 kg (235 lb) BMI 34.70 kg/m2 Heart Examination: Cardiac Regularity: Regular Respiratory Examination: Respiratory Pattern: Regular Breath Sounds Right: Clear Breath Sounds Left: Clear Additional physical exam related to the proposed procedure, patient activity, disease state and treatment as pertinent: Assessment Previous complications with sedation or anesthesia?: No Airway Concerns: None Anesthesia Classification: ASA 2 Fasting Time: Time of last liquid intake: 0600 Date of Last Liquid Intake: 09/12/11 Time of last solid intake: 1900 Date of last solid intake: 09/10/11 Patient Appropriate Candidate for Planned Sedation?: Yes documented in this encounter Procedure Notes * Major Assembler, Wilbert - 09/13/2011 0800 EDTAssociated Order(s): PROCEDURE REPORTS - SCANNED documented in this encounter Miscellaneous Notes * Scanned Note-Null - Major Assembler, Scan - 09/13/2011 1318 EDT * Scanned Note-Null - Major Assembler, Scan - 09/13/2011 1232 EDT documented in this encounter Plan of Treatment Pending Results Name Type Priority Associated Diagnoses Date /Time OUTSIDE IMAGES - [facility] Imaging 1 12/28/2011 16:38 EST Scheduled Orders Name Type Priority Associated Diagnoses Orde r Schedule OUTSIDE IMAGES - MR [facility] Imaging For medications that can be administered at any time during the hospitalization for visit such as immunizations. for 1 Occurrences starting 10/27/2012 documented as of this encounter Procedures Procedure Name Priority Date/Time Associated Diagnosis Comments PROCEDURE REPORTS - SCANNED 09/13/2011 8:00 EDT documented in this encounter Results * PROCEDURE REPORTS - SCANNED (09/13/2011 8:00 EDT) 09/13/2011 8:00 EDT Narrative Transcriptions Major Assembler, Scan - 09/13/2011 8:00 EDT us Scan Major Assembler PROCEDURE/MINOR SURGICAL ORDE RABLES Final Result documented in this encounter Visit Diagnoses Not on filedocumented in this encounter Administered Medications Inactive Administered Medications - up to 3 most recent administrations Medication Order MAR Action Action Date Dose Rate Site meperidine (PF) (DEMEROL) 100 mg/mL injection 25-200 mg 25-200 mg, intravenous, ONCE PRN, 1 dose, Starting on Sat09/12/11 at 0754, Until Sat09/12/11 at 0840, Other, sedation, Routine, Intraprocedure Given 09/12/2011 8:40 EDT 75 mg midazolam (VERSED) injection 1-10 mg 1-10 mg, intravenous, ONCE PRN, 1 dose, Starting on Sat09/12/11 at 0754, Until Sat09/12/11 at 0840, Sedation, Routine, Intraprocedure Given 09/12/2011 8:40 EDT 4 mg sodium chloride 0.9 % (NS) infusion 30 mL/hr, intravenous, CONTINUOUS, Starting on Sat09/12/11 at 0815, Until Sat09/12/11 at 1225, Routine, Preprocedure New Bag 09/12/2011 8:19 EDT 30 mL/hr 30 mL/hr documented in this encounter Orders Medications Ordered That Min ht Not Have Been Administered Count Last Ordered Date First Ordered Date lactated ringers (LR) infusion 1 09/12/2011 Admission Count Last Ordered Date First Orde red Date NOTIFY PPS OF DISCHARGE COMPLETE 1 09/12/20 11 Discharge Count Last Ordered Date First Orde red Date DISCHARGE PATIENT 1 09/12/2011 documented in this encounter Care Teams Corporate Pilot Relationship Specialty Start Date End Date Roxanna Hannah MD [address] [place] [phone] PCP - General 03/28/09 05/31/20 documented as of this encounter
--- OUTSIDE RECORDS SUMMARY | 2024-10-06 13:51 | XMS_ITS | Encounter Summary ---
Author Organization [facility] Address [address] [place] [address] Care Team Providers Care Applied Behavior Specialist Name Role Phone Roxanna Hannah MD Primary Care Provider + Reason for Referral * (Routine) - Closed Specialty Diagnoses / Procedures Referred By Nela bravo Referred To Contact Diagnoses Backache Procedures THORACIC SPINE 2-3 VIEWS Roxanna Hannah MD Phone: tel: fax: Referral ID Status Reason Start Date Expiration Date Visits Re quested Visits Authorized [id number] Closed 07/12/2010 1 1 * Consult (Routine) - Closed Specialty Diagnoses / Procedures Referred By Nela bravo Referred To Contact Urology Diagnoses Erectile dysfunction Hematospermia Roxanna Hannah MD Phone: tel: fax: Referral ID Status Reason Start Date Expiration Date V isits Requested Visits Authorized [id number] Closed Specialty Services Required 07/12/2010 1 1 Question Answer Reason for Request: Int hematospermia, erectile dysfxn and low testtosterone Comments (missed appt last winter due to father's ) Reason for Visit * Reason Comments Medication Problem review Back Pain Encounter Details Date Type Department Care Team (Late st Contact Info) Description 07/12/2010 9:15 EDT Office Visit [address] [address] Roxanna Hannah MD [address] [place] [phone] Abnormal glucose tolerance test; Hyperlipidemia; Essential hypertension; Seizure disorder (CMS-HCC); Erectile dysfunction; Hematospermia; Backache Social History Tobacco Use Types Packs/Day Years [...] Sign Reading Time Taken Comments Blood Pressure 122/82 07/12/2010 0909 EDT Pulse 64 07/12/201009 EDT Temperature 36.3 ??C (97.4 ??F) 07/12/2010 0909 EDT Respiratory Rate - - Oxygen Saturation - - Inhaled Oxygen Concentration - - Weight 105.8 kg (233 lb 3.2 oz) 07/12/2010 09 EDT Height - - Body Mass Index - - documented in this encounter Ordered Prescriptions Prescription Sig Dispense Quantity Refills Last Filled Start Date End Date hydrochlorothiazide (MICROZIDE) 12.5 mg capsule Take 1 Cap by mouth daily. 90 Each 3 07/12/2010 07/11/2011 simvastatin (ZOCOR) 40 mg tablet Take 1 Tab by mouth daily. 90 Each 3 07/12/2010 07/11/2011 divalproex (DEPAKOTE) 500 mg EC tablet Take 1 Tab by mouth 3 times daily. 3 tabs 270 Each 3 07/12/2010 07/17/2010 omeprazole (PRILOSEC) 20 mg capsule Take 1 Cap by mouth daily. 90 Cap 3 07/12/2010 04/02/2011 documented in this encounter Progress Notes * Roxanna Hannah MD - 07/17/2010 0610 EDT S: here to f/u on HTN, hyperlipidemia, impaired glucose tolerance. Regarding hematospermia and erectile dysfxn, could not make appt last winter with urology due to father's . Less of an issue but still occurs. No CP, SOB, palpitations, leg swelling. NO recent seizures. Does have 1-2 months upper thoracic spine pain, radiates some to sides. No injuries. No arm, hand, or leg paresthesias or weakness. Pain can be more electrical in nature. No rash/vessicles or otherskin changes. Both sides affected. Meds reviewed, needs RF. O: BP 122/82 Pulse 64 Temp(Src) 36.3 ??C (97.4 ??F) (Tympanic) Wt 105.779 kg (233 lb 3.2 oz) Gen - well INAD Back - no T-spine point tenderness, no rash. Lungs - CTAB CV - RR No M/R/G Ext - no edema A/P Thoracic spine pain, some neuropathic electrical pain - check T-spine XR (will go to [facility]) HTN - at goal, con't current plan CMP today Hyperlipidemia - FLP today, con't current plan Seizure D/O - Depakote level today, CBC, CMP today Impaired glucose willie - fast glucose today F/u 2 mos or sooner prn * Maggie Andrade LPN - 07/12/2010 0952 EDT Venipuncture performed. documented in this encounter Plan of Treatment Scheduled Orders Name Type Priority Associated Diagnoses Orde r Schedule THORACIC SPINE 2-3 VIEWS Imaging Routine Backache Ordered: 07/12/2010 Scheduled Referrals Name Type Priority Associated Diagnoses Orde r Schedule AMB CONSULT UROLOGY Outpatient Referral Routine Erectile dysfunction Hematospermia Ordered: 07/12/2010 documented as of this encounter Procedures Procedure Name Priority Date/Time Associated Diagnosis Comments THYROID CASCADE Routine 07/12/2010 9:32 EDT Abnormal glucose tolerance test Hyperlipidemia Essential hypertension COMPLETE BLOOD COUNT AND DIFFERENTIAL Routine 07/12/2010 9:32 EDT Seizure disorder ([facility]-HCC) VALPROIC ACID LEVEL Routine 07/12/2010 9 :32 EDT Seizure disorder (CMS-HCC) LIPID PROFILE (INCLUDES CHOLESTEROL, TRIGLYCERIDES, HDL, LDL) Routine 07/12/2010 9:32 EDT Abnormal glucose tolerance test Hyperlipidemia Essential hypertension COMPREHENSIVE METABOLIC PANEL (CMP) Routine 07/12/2010 9:32 EDT Abnormal glucose tolerance test Hyperlipidemia Essential hypertension documented in this encounter Results * (ABNORMAL) HEMAGRAM AND DIFFERENTIAL (07/12/2010 9:32 EDT) WBC 6.31 4.0 - 10.4 K/cmm [facility] RBC 4.96 4.36 - 5.78 M/cmm [facility] Hemoglobin 16.1 13.8 - 17.3 gm/dl [facility] HCT 47.6 39.5 - 50.2 % [facility] MCV 96(H) 81 - 95 fl [facility] MCH 32.5 27.6 - 33.0 pg [facility] MCHC 33.8 32.8 - 36.4 gm/dl [facility] PLT 180 141 - 320 K/cmm [facility] RDW-CV 14.0 11.8 - 14.1 % [facility] % Neutrophils 52.7 45.5 - 79.7 % [facility] % Lymphocytes 38.4 15.0 - 46.8 % [facility] % Monocytes 6.8 1.8 - 12.0 % [facility] % Eosinophils 1.7 0.6 - 6.9 % [facility] % Basophils 0.4 0.2 - 1.4 % [facility] ABS Neutrophils 3.32 2.20 - 8.85 K/cmm [facility] ABS Lymphs 2.42 1.09 - 3.30 K/cmm [facility] ABS Monocytes 0.43 0.1 - 0.8 K/cmm [facility] ABS Eosinophils 0.11 0.03 - 0.61 K/cmm [facility] ABS Basophils 0.02 0.01 - 0.11 K/cmm [facility] Type of Diff: Automated [facility] Blood specimen (specimen) 07/12/2010 9:32 EDT 07/12/2010 17:27 EDT Roxanna Hannah MD PACKAGES & DNA PROBE ORD ERABLES Final Result Performing Organization Address [facility] de Phone Number [facility] [address] [place] [address] * VALPROIC ACID LEVEL (07/12/2010 9:32 EDT) Pathologist [facility] Valproic Acid 78.9 50.0 - 100.0 ug/ml [facility] Blood specimen (specimen) 07/12/2010 9:32 EDT 07/12/2010 17:27 EDT Roxanna Hannah MD CHEMISTRY & BLOOD GAS OR DERABLES Final Result Performing Organization Address [facility] de Phone Number [facility] [address] [place] [address] * THYROID CASCADE (07/12/2010 9:32 EDT) [facility] TSH 1.97 0.35 - 5.00 uIU/ml [facility] Comment: ??TSH cascade is not recommended for patients in which pituitary or hypothalamic disorders are suspected. Blood specimen (specimen) 07/12/2010 9:32 EDT 07/12/2010 17:27 EDT Roxanna Hannah MD CHEMISTRY & BLOOD GAS OR DERABLES Final Result Performing Organization Address [facility] de Phone Number [facility] [address] [place] [address] * LIPID PROFILE (INCLUDES CHOLESTEROL, TRIGLYCERIDES, HDL, LDL) (07/12/2010 9:32 EDT) Pathologist [facility] Cholesterol 130 mg/dl [facility] Comment:Desirable:<200 Borde rline High:200-239 High:>zb=[id number] Triglycerides 105 35 - 160 mg/dl [facility] HDL 31 mg/dl [facility] Comment:Low:<40 High(Desirab le):>or=60 LDL, Calculated 78 mg/dl [facility] Comment: Optimal:<100 Above optimal:100-129 Borderline High:130-159 High:160-189 Very High:>ik=342 Chol/HDL Ratio 4.2 [facility] Fasting? Yes [facility] Blood specimen (specimen) 07/12/2010 9:32 EDT 07/12/2010 17:27 EDT us Roxanna Hannah MD CHEMISTRY & BLOOD GAS OR DERABLES Final Result [facility] [address] [place] [address] * COMPREHENSIVE METABOLIC PANEL (07/12/2010 9:32 EDT) Potassium 4.3 3.5 - 5.0 mEq/L [facility] Sodium 142 136 - 145 mEq/L [facility] Chloride 101 96 - 110 mEq/L [facility] CO2 31 24 - 32 mEq/L [facility] Total Alkaline Phosphatase 60 38 - 126 U/L [facility] Bilirubin, Total 0.6 0.2 - 1.3 mg/dl [facility] AST 28 15 - 46 U/L [facility] ALT 33 21 - 72 U/L [facility] Albumin 4.2 3.4 - 4.9 g/dl [facility] Total Protein 7.0 6.5 - 8.3 g/dl [facility] Creatinine 0.86 0.7 - 1.5 mg/dl [facility] GFR, Calculated >60 ml/min/1.7 3m2 [facility] BUN 20 10 - 26 mg/dl [facility] Calcium 9.4 8.5 - 10.5 mg/dl [facility] Calculated Calcium 9.6 8.5 - 10.5 mg/dl [facility] Glucose, Serum 94 70 - 100 mg/dl [facility] Fasting? Yes [facility] Blood specimen (specimen) 07/12/2010 9:32 EDT 07/12/2010 17:27 EDT us Roxanna Hannah MD CHEMISTRY & BLOOD GAS OR DERABLES Final Result [facility] [address] [place] [address] documented in this encounter Visit Diagnoses Diagnosis Abnormal glucose tolerance test Impaired glucose tolerance test Hyperlipidemia Other and unspecified hyperlipidemia Essential hypertension Unspecified essential hypertension Seizure disorder (HCC-CMS) Unspecified epilepsy without mention of intractable epilepsy Erectile dysfunction Impotence of organic origin Hematospermia Backache Backache, unspecified documented in this encounter Discontinued Medications Medication Sig Discontinue Reason Start Date End Da te omeprazole (PRILOSEC) 20 mg capsule Take 1 Cap by mouth daily. Reorder 01/24/2010 07/12/2010 divalproex (DEPAKOTE) 500 mg EC tablet Take 500 mg by mouth daily. 3 tabs Reorder 07/12/2010 simvastatin (ZOCOR) 40 mg tablet Take 40 mg by mouth daily. Reorder 07/12/2010 hydrochlorothiazide (MICROZIDE) 12.5 mg capsule Take 12.5 mg by mouth daily. Reorder 07/12/2010 documented as of this encounter Care Teams Applied Behavior Specialist Relationship Specialty Start Date End Date Roxanna Hannah MD [address] [place] [phone] PCP - General 03/28/09 05/31/20 documented as of this encounter
--- OUTSIDE RECORDS SUMMARY | 2024-10-06 13:51 | XMS_ITS | Encounter Summary ---
Author Organization [facility] Address [address] [place] [address] Care Team Providers Care Hotel Maintenance Engineer Name Role Phone Roxanna Hannah MD Primary Care Provider + Reason for Visit * Reason Onset Date Comments Medications Refill 01/24/2010 [facility] faxed f orms Encounter Details Date Type Department Care Team (Late st Contact Info) Description 01/24/2010 Refill [facility] Family Medicine [address] [address] Roxanna Hannah MD [address] [place] [phone] Medications Refill ([facility] faxed forms) Social History Tobacco Use Types Packs/Day Years [...] Cap by mouth daily. 90 Cap 3 01/24/2010 07/12/2010 documented in this encounter Miscellaneous Notes * Telephone Encounter - Joi Hidalgo - 01/24/2010 7881 EST Last appt 01/16/10, next visit 03/13/10, last fill 11/11/08 documented in this encounter Plan of Treatment Not on file documented as of this encounter Visit Diagnoses Not on filedocumented in this encounter Discontinued Medications Medication Sig Discontinue Reason Start Date End Da te omeprazole (PRILOSEC) 20 mg capsule Take 20 mg by mouth daily. Reorder 01/24/2010 documented as of this encounter Care Teams Hotel Maintenance Engineer Relationship Specialty Start Date End Date Roxanna Hannah MD [address] [place] [phone] PCP - General 03/28/09 05/31/20 documented as of this encounter
--- OUTSIDE RECORDS SUMMARY | 2024-10-06 13:51 | XMS_ITS | Encounter Summary ---
Author Organization [facility] Address [address] [place] [address] Care Team Providers Care Ecological Modeler Name Role Phone Roxanna Hannah MD Primary Care Provider + Reason for Visit * Reason Comments Anxiety Mario is here toda y to discuss treatment for anxiety. Encounter Details Date Type Department Care Team (Late st Contact Info) Description 10/30/2011 15:45 EST Office Visit [address] [phone] Unknown, Provider, Suzanne Aguilar MD [address] [place] [phone] Depression; Anxiety Social History Tobacco Use Types Packs/Day Years [...] Sign Reading Time Taken Comments Blood Pressure 134/86 10/30/2011 1547 EST Pulse 78 10/30/2011 1547 EST Temperature 36.8 ??C (98.3 ??F) 10/30/2011 1547 EST Respiratory Rate - - Oxygen Saturation - - Inhaled Oxygen Concentration - - Weight 110.7 kg (244 lb) 10/30/2011 1547 EST Height - - Body Mass Index 36.03 09/12/2011 0750 EDT documented in this encounter Ordered Prescriptions Prescription Sig Dispense Quantity Refills Last Filled Start Date End Date lorazepam (ATIVAN) 1 mg tabletIndications: Depression,Anxiety Take 0.5 Tabs by mouth 2 times daily. 30 Tab 1 10/30/2011 2 sertraline (ZOLOFT) 25 mg tabletIndications: Depression,Anxiety Take 1 Tab by mouth daily. After one week increase to 2 tabs daily. 50 Tab 0 10/30/2011 1 documented in this encounter Progress Notes * Suzanne Schwarz - 10/30/2011 1656 EST Chief Complaint Patient presents with ??? Anxiety Mario is here today to discuss treatment for anxiety. SUBJECTIVE: Here to discuss anxiety. He has been feeling anxious for 2-3 months. Triggered by a grandson that may be deported to [place]. Gets angry, head gets hot, gets shaky, thoughts start to spin. Work compounds these feelings. Not sleeping well secondary to thoughts and shoulder pain. Started sobbing at work and was sent home by his boss. Feels like he needs help. Decreased energy, lack of interest in doing anything. Difficulty getting out of bed. Appetite is okay. Does feel hopeless and guilty. No suicidal ideations. No homicidal ideations. ROS: Pertinent items noted in HPI. Current medications reviewed in the chart. OBJECTIVE: BP 134/86 Pulse 78 Temp(Src) 36.8 ??C (98.3 ??F) (Oral) Wt 110.678 kg (244 lb) General: Alert, pleasant, NAD Mental Status Exam: Mario is dressed in casual attire. Hygiene is good. Eye contact is good and he engages readily. Speech is normal rate, volume and tone. Psychomotor activity is normal. Mood is described as depressed and affect is congruent. Thought process is linear logical and goal directed. Thought content does not include auditory or visual hallucinations, delusions, or homicidal ideation. The patient is clear and convincing today that he has no thoughts of suicide. Associations are tight. Insight and judgement are intact. Alert and oriented x 3. ASSESSMENT & PLAN Mario was seen today for anxiety. Diagnoses and associated orders for this visit: Depression/Anxiety: Most likely adjustment reaction from life stressors/changes. - Start sertraline (ZOLOFT) 25 mg tablet; Take 1 Tab by mouth daily. After one week increase to 2 tabs daily. - Bridge with lorazepam (ATIVAN) 1 mg tablet; Take 0.5 Tabs by mouth 2 times daily. Return in about 3 weeks (around 11/20/2011). Patient Education Topic: as above Method: Verbal Taught to: Patient Barriers: None Outcomes: Verbalized understanding Suzanne Schwarz MD Special Delivery Carrier PGY3 Attestation statement: I discussed the patient with the resident/fellow at the time of the visit and agree with the findings and plan of care. Pradeep Valente MD 10/30/2011 17:01 Attestation statement for office patient not seen by attending: I discussed the patient with the resident/fellow at the time of the visit and agree with the findings and the plan of care documented in the resident's/fellow's note. Pradeep Valente MD Family Medicine Attending 11/01/2011 8:08 documented in this encounter Plan of Treatment Not on file documented as of this encounter Visit Diagnoses Diagnosis Depression Depressive disorder, not elsewhere classified Anxiety Anxiety state, unspecified documented in this encounter Care Teams Ecological Modeler Relationship Specialty Start Date End Date Roxanna Hannah MD [address] [place] [phone] PCP - General 03/28/09 05/31/20 documented as of this encounter
--- OUTSIDE RECORDS SUMMARY | 2024-10-06 13:51 | XMS_ITS | Encounter Summary ---
Author Organization [facility] Address [address] [place] [address] Care Team Providers Care Report Writer Name Role Phone Roxanna Hannah MD Primary Care Provider + Reason for Referral * Radiology Services (Routine/Next Available) - Closed Specialty Diagnoses / Procedures Referred By Nela bravo Referred To Contact Diagnoses Shoulder pain Procedures SHOULDER 2 OR MORE VIEWS Roxanna Hannah MD Phone: tel: fax: Referral ID Status Reason Start Date Expiration Date Visits Re quested Visits Authorized [id number] Closed 07/23/2012 1 1 * Consult (Routine/Next Available) - Closed Specialty Diagnoses / Procedures Referred By Nela bravo Referred To Contact Diagnoses Shoulder pain Roxanna Hannah MD Phone: tel: fax: S [facility] [address] [address] Referral ID Status Reason Start Date Expiration Date V isits Requested Visits Authorized [id number] Closed Specialty Services Required 07/23/2012 1 1 Question Answer Reason for Request: acute on chronic left shoulder pain, h/o dislocation and surgical repair > 10 yrs ago, known arthritis Comments Dr. malena Schneider in [place] Reason for Visit * Reason Comments Shoulder Pain Mario is here toda y to follow-up on his chronic left shoulder pain. Encounter Details Date Type Department Care Team (Late st Contact Info) Description 07/23/2012 11:45 EDT Office Visit [address] [address] Roxanna Hannah MD [address] [place] [phone] Shoulder pain (Primary Dx) Social History Tobacco Use [...] Sign Reading Time Taken Comments Blood Pressure 138/94 07/23/2012 1150 EDT Pulse 78 07/23/2012 1150 EDT Temperature 36.3 ??C (97.4 ??F) 07/23/2012 1150 EDT Respiratory Rate - - Oxygen Saturation - - Inhaled Oxygen Concentration - - Weight 111.1 kg (245 lb) 07/23/2012 1150 EDT wit h shoes Height - - Body Mass Index 36.18 09/12/2011 0750 EDT documented in this encounter Ordered Prescriptions Prescription Sig Dispense Quantity Refills Last Filled Start Date End Date naproxen (NAPROSYN) 500 mg tablet Take 1 Tab by mouth 2 times daily with breakfast and dinner. 30 Tab 1 07/23/2012 2 documented in this encounter Progress Notes * Roxanna Hannah MD - 07/28/2012 0728 EDT S: here to discuss left shoulder pain and ROM limitations Has struggled for > 10 yrs, after multiple dislocations and then surgical repair with Dr. Salazar in [place] Pain is progressing. Even simple movements has partial ext rotation trigger intense pain No weakness or numbness ROM limitations less concerning to him as he always anticipated this Went through PT at [facility] in [place] last fall Last January did see ortho in [facility], had posterior subacromial injection that did offer some relief for 2-3 mos Never followed up however (was not sure what benefit it would offer) Last shoulder imaging was plain XRAY in Sep 2011 ([facility]) showed moderate degenerative changes in glenoid humeral head Has bene using Tylenol and Ibuprofen 400 mg without relief Sometimes Aleve offers some decrease in pain O: BP 138/94 Pulse 78 Temp(Src) 36.3 ??C (97.4 ??F) (Oral) Wt 111.131 kg (245 lb) Gen - well INAD EXT - limited today as has been done in past but painful and decreased ABDuction past 90 degrees, ext rotation XRAY today - mod arthritis changes medially, await final read A/P Acutely worsening left chronic shoulder pain REF to Dr. Lorenzo at [facility] [place] Trial Naprosyn 500 mg BID prn with food Continue ROM exercises he learned in PT in past documented in this encounter Plan of Treatment Scheduled Referrals Name Type Priority Associated Diagnoses Order Schedule AMB CONSULT ORTHOPEDICS Outpatient Referral Routine Shoulder pain Ordered: 07/23/2012 documented as of this encounter Procedures Procedure Name Priority Date/Time Associated Diagnosis Comments SHOULDER 2 OR MORE VIEWS Routine 07/23/2012 13:30 EDT Shoulder pain documented in this encounter Results * SHOULDER 2 OR MORE VIEWS (07/23/2012 13:30 EDT) Anatomical Region Laterality Modality Other 07/23/2012 13:3 0 EDT 07/29/2012 7:18 EDT Narrative 07/29/2012 7:18 EDT CR, SHOULDER_2 MORE VIEWS ??July 23, 2012 1:00 p.m. Clinical History/Comments: Left shoulder pain and decreased range of motion, history of recurrent dislocation and surgical repair greater than 10 years ago. Rule out arthritis. Findings: AP internal rotation, AP external rotation, and Grashey views of the left shoulder were obtained. The humeral head is inferiorly subluxed with respect to the glenoid fossa. The glenohumeral joint demonstrates moderate to severe degenerative changes, including exuberant osteophytosis along the inferior aspect of the humeral head and joint space narrowing. The bones are well-mineralized for age. A small, somewhat rounded density overlying the soft tissues between the acromion and humeral head could represent calcific tendinosis or perhaps a loose body within the joint space or subacromial bursa. The acromioclavicular joint exhibits a mild degree of degenerative change. Impression: 1. Moderate to severe glenohumeral osteoarthrosis. 2. Rounded density overlying the soft tissues between the acromion and humeral head could represent calcific tendinosis of the rotator cuff, or perhaps a loose body within the joint space or subacromial bursa. 3. Inferior subluxation of the humeral head with respect to the glenoid. I have personally reviewed the images and the above interpretation and agree with the findings. Procedure Note Jericho Porter MD - 07/29/2012 CR, SHOULDER_2 MORE VIEWS July 23, 2012 1:00 p.m. Clinical History/Comments: Left shoulder pain and decreased range of motion, history of recurrent dislocation and surgical repair greater than 10 years ago. Rule out arthritis. Findings: AP internal rotation, AP external rotation, and Grashey views of the left shoulder were obtained. The humeral head is inferiorly subluxed with respect to the glenoid fossa. The glenohumeral joint demonstrates moderate to severe degenerative changes, including exuberant osteophytosis along the inferior aspect of the humeral head and joint space narrowing. The bones are well-mineralized for age. A small, somewhat rounded density overlying the soft tissues between the acromion and humeral head could represent calcific tendinosis or perhaps a loose body within the joint space or subacromial bursa. The acromioclavicular joint exhibits a mild degree of degenerative change. Impression: 1. Moderate to severe glenohumeral osteoarthrosis. 2. Rounded density overlying the soft tissues between the acromion and humeral head could represent calcific tendinosis of the rotator cuff, or perhaps a loose body within the joint space or subacromial bursa. 3. Inferior subluxation of the humeral head with respect to the glenoid. I have personally reviewed the images and the above interpretation and agree with the findings. us Roxanna Hannah MD IMG DIAGNOSTIC IMAGING O RDERABLES Final Result documented in this encounter Visit Diagnoses Diagnosis Shoulder pain- Primary Pain in joint, shoulder region documented in this encounter Discontinued Medications Medication Sig Discontinue Reason Start Date End Da te ibuprofen (MOTRIN) 200 mg tablet Take 400-800 mg by mouth every 6 hours as needed. 01/16/2011 07/23/2012 documented as of this encounter Care Teams Report Writer Relationship Specialty Start Date End Date Roxanna Hannah MD [address] [place] [phone] PCP - General 03/28/09 05/31/20 documented as of this encounter
--- OUTSIDE RECORDS SUMMARY | 2024-10-06 13:51 | XMS_ITS | Encounter Summary ---
Author Organization [facility] Address [address] [place] [address] Care Team Providers Care Prop Sawyer Name Role Phone Roxanna Hannah MD Primary Care Provider + Reason for Visit * Reason Onset Date Comments Medication Problem 02/23/2011 Encounter Details Date Type Department Care Team (Late st Contact Info) Description 02/23/2011 Telephone [facility] Family Medicine - [address] [phone] Roxanna Hannah MD [address] [place] [phone] Medication Problem Social History Tobacco Use Types [...] Telephone Encounter - Maggie Andrade LPN - 02/23/2011 1518 EDT Patient was called and this nurse found separate note with Neurontin weaning up instructions from Dr. Hannah while on phone with patient. Pt. Was given Dr. Hannah's instructions for titrating up. Patient currently on 300mg. Bid and will increase to 300mg. Tid starting tomorrow, then will continuethis regime for 5 days and increase to 600mg. Tid x 5 days, increase to 900mg. Tid (max daily dose of 2700mg/day)Will titrate if needed for pain. Advised to call us if ineffective after being on 900mg. Tid x 5 days or longer. Patient was told that he had Neurontin 100mg. Caps. ([facility]ills [facility]) and he said, they won't let me fill those while I have the 300's. This nurse did tell him that Dr. Hannah had notifed pharm. Of needing to wean up. Pt. Understood that, but also stated he will use the 300's first and then call if needed for refill. * Telephone Encounter - Yashira Hernandez - 02/23/2011 1346 EDT I like to increase by 300mg a day every 3-5 days. So first increase to 2 daily then 3 daily, then can start increasing night dose and so on. Max dose for this patient would be 2700 mg. If having sideeffects, slow down increase. If having side effects, please call. * Telephone Encounter - Maggie Andrade LPN - 02/23/[address] Hannah's 02/13/11/ note, it is advised that patient can increase Neurontin q3-5 days until pain improves or 900mg. Po TID. Patient does have refills for 100mg. Neurontin at pharm. (confirmed with [facility] at [facility]). Patient was given script for 300mg. Caps. On 02/13/11. How would patient increase. Pt. Also thought the max daily dose would be 1800mg. ,but above directions would be 2700mg daily. Please advise nurse on how to tell patient how to increase gradually. * Telephone Encounter - Yashira Bright - 02/23/2011 0837 EDT Patient calling regarding his neurontin script. Says that it was written for 300mg, #90 w/1. Was told to start at the 300mg and gradually increase as needed up to 1800mg daily. Please call to advise. documented in this encounter Plan of Treatment Not on file documented as of this encounter Visit Diagnoses Not on filedocumented in this encounter Care Teams Prop Sawyer Relationship Specialty Start Date End Date Roxanna Hannah MD [address] [place] [phone] PCP - General 03/28/09 05/31/20 documented as of this encounter
--- OUTSIDE RECORDS SUMMARY | 2024-10-06 13:51 | XMS_ITS | Encounter Summary ---
Author Organization [facility] Address [address] [place] [address] Care Team Providers Care Digital Marketing Associate Name Role Phone Roxanna Hannah MD Primary Care Provider + Reason for Visit * Reason Onset Date Comments Shoulder Pain 06/17/2012 Encounter Details Date Type Department Care Team (Late st Contact Info) Description 06/17/[address] [phone] Roxanna Hannah MD [address] [place] [phone] Shoulder Pain Social History Tobacco Use Types Packs/Day [...] * Telephone Encounter - Isaura Ray - 06/18/2012 0909 EDT Patient will be away for the next couple of weeks. Scheduled for 07/23/12. * Telephone Encounter - Roxanna Hannah MD - 06/17/2012 1343 EDT I do not inject shoulders but others here do (Dr. Calloway) He was to f/u with Dr. cope in March after his subacromial injection in January. Whatever came of that? Also PT here at [facility]? Really sounds like he needs appt to discuss * Telephone Encounter - Isaura Ray - 06/17/2012 0827 EDT Patient calling to ask if Dr. Hannah does injections. Patient would like one in his shoulder. documented in this encounter Plan of Treatment Not on file documented as of this encounter Visit Diagnoses Not on filedocumented in this encounter Care Teams Digital Marketing Associate Relationship Specialty Start Date End Date Roxanna Hannah MD [address] [place] [phone] PCP - General 03/28/09 05/31/20 documented as of this encounter
--- OUTSIDE RECORDS SUMMARY | 2024-10-06 13:51 | XMS_ITS | Encounter Summary ---
Author Organization [facility] Address [address] [place] [address] Care Team Providers Care Public Speaking Instructor Name Role Phone Roxanna Hannah MD Primary Care Provider + Reason for Visit * Reason Onset Date Comments Medication Reaction 11/28/2011 Encounter Details Date Type Department Care Team (Late st Contact Info) Description 11/28/[address] [phone] Roxanna Hannah MD [address] [place] [phone] Medication Reaction Social History Tobacco Use Types Packs/Day Years [...] Telephone Encounter - Roxanna Hannah MD - 11/29/2011 1304 EST Seems like should go back to the 50 mg but we could also try 75 mg Should discuss at ROV * Telephone Encounter - Jasmin Lino RN - 11/28/2011 1646 EST Mario states Since I increased my Zoloft to 100 mg daily I have had tremors. No other side effects noted. I didn't have tremors at 50 mg. What should I do? Advised to decrease to 50 mg daily until I have a response back from the provider. The patient indicates understanding of these issues and agrees with the plan. 11/29 @ 1:36 Pt is aware of [address] Hannah's response. States I will stay on the 50 mg until I see Dr. Hannah. office visit 12/12 @ 10:30. The patient indicates understanding of these issues and agrees with the plan. * Telephone Encounter - Joi Hidalgo - 11/28/2011 1639 EST Patient would like to speak to a nurse about a reaction to his zoloft medication, please call. documented in this encounter Plan of Treatment Not on file documented as of this encounter Visit Diagnoses Not on filedocumented in this encounter Care Teams Public Speaking Instructor Relationship Specialty Start Date End Date Roxanna Hannah MD [address] [place] [phone] PCP - General 03/28/09 05/31/20 documented as of this encounter
--- OUTSIDE RECORDS SUMMARY | 2024-10-06 13:51 | XMS_ITS | Encounter Summary ---
Author Organization [facility] Address [address] [place] [address] Care Team Providers Care Battery Repairer Name Role Phone Roxanna Hannah MD Primary Care Provider + Encounter Details Date Type Department Care Team (Late st Contact Info) Description 01/31/2010 Abstract Used for ABSTRACTING Data [phone] Roxanna Hannah MD [address] [place] [phone] Social History Tobacco Use Types Packs/Day Years [...] on filedocumented in this encounter Care Teams Battery Repairer Relationship Specialty Start Date End Date Roxanna Hannah MD [address] [place] [phone] PCP - General 03/28/09 05/31/20 documented as of this encounter
--- OUTSIDE RECORDS SUMMARY | 2024-10-06 13:51 | XMS_ITS | Encounter Summary ---
Author Organization [facility] Address [address] [place] [address] Care Team Providers Care Community Relations Liaison Name Role Phone Roxanna Hannah MD Primary Care Provider + Reason for Visit * Reason Comments Anxiety here to follow up on starting new medication, zoloft. Encounter Details Date Type Department Care Team (Late st Contact Info) Description 11/20/2011 16:00 EST Office Visit [address] [phone] Unknown, Provider, Suzanne Aguilar MD [address] [place] [phone] Depression; Anxiety Social History Tobacco Use [...] Sign Reading Time Taken Comments Blood Pressure 134/62 11/20/2011 1605 EST Pulse 72 11/20/2011 1605 EST Temperature 36.6 ??C (97.9 ??F) 11/20/2011 1605 EST Respiratory Rate - - Oxygen Saturation - - Inhaled Oxygen Concentration - - Weight 110.2 kg (243 lb) 11/20/2011 1605 EST Height - - Body Mass Index 35.88 09/12/2011 0750 EDT documented in this encounter Ordered Prescriptions Prescription Sig Dispense Quantity Refills Last Filled Start Date End Date sertraline (ZOLOFT) 100 mg tabletIndications:D epression,Anxiety Take 1 Tab by mouth daily. 30 Tab 1 11/20/2011 12/12/2011 documented in this encounter Progress Notes * Suzanne Schwarz - 11/20/2011 1622 EST Progress Note Chief Complaint Patient presents with ??? Anxiety here to follow up on starting new medication, zoloft. SUBJECTIVE: Started Zoloft and is tolerating it well. Seems to be working well. Grandson is not going to be deported, government made a mistake. Feels like the medication is soothing him well. No intolerable side effects. No increased suicidal ideations. Over the last 2 weeks, how often have you been bothered by any of the following problems? Not at all=0 Several days=1 More than half the days=2 Nearly every day=3 1. Little interest or pleasure in doing things. 3 2. Feeling down, depressed, or hopeless. 2 3. Trouble falling or staying asleep, or sleeping too much. 3 4. Feeling tired or having little energy. 3 5. Poor appetite or overeating. 0 6. Feeling bad about yourself--or that you are a failure or have let yourself or your family down. 2 7. Trouble concentrating on things, such as reading the newspaper or watching television. 2 8. Moving or speaking so slowly that other people could have noticed. Or the opposite--being so fidgety or restless that you have been moving around a lot more than usual. 0 9. Thoughts that you would be better off , or of hurting yourself in some way. 0 TOTAL: 15 (0-4=nodepression, 5-9=mild depression, 10-14 = moderate depression, 15-19 = moderately severe depression, 20-27 = severe depression) MDD = 5 (3,4) incl #1 or #2 ROS: Pertinent items noted in HPI. Remainder of 11 point ROS negative Current Outpatient Prescriptions Medication Sig Dispense Refill ??? sertraline (ZOLOFT) 25 mg tablet Take 1 Tab by mouth daily. After one week increase to 2 tabs daily. 50 Tab 0 ??? lorazepam (ATIVAN) 1 mg tablet Take 0.5 Tabs by mouth 2 times daily. 30 Tab 1 ??? hydrochlorothiazide (MICROZIDE) 12.5 mg capsule Take [...] every 6 hours as needed. ??? GLUCOSAMINE [id number] ORAL Take 1 Tab by mouth daily. Pt varies dosing ??? Cod Liver Oil Cap Take 1 Cap by mouth 2 times daily. History Substance Use Topics ??? Smoking status: Never Smoker ??? Smokeless tobacco: Not on file ??? Alcohol Use: Yes 2-3 drinks per week OBJECTIVE: BP 134/62 Pulse 72 Temp(Src) 36.6 ??C (97.9 ??F) (Oral) Wt 110.224 kg (243 lb) General: Alert, pleasant, cooperative, NAD HEENT: PERRL, sclera anicteric, EOMI, MMM Mental Status Exam: Thanh is dressed in casual attire. Hygiene is good. Eye contact is good and he engages readily. Speech is normal rate, volume and tone. Psychomotor activity is normal. Mood is described as geed and affect is congruent. Thought process is [...] and associated orders for this visit: Depression/Anxiety: PHQ-9 score indicates moderately severe depression. Symptoms are improving overall. - Increase sertraline (ZOLOFT) to 100 mg tablet; Take 1 Tab by mouth daily. Return in about 4 weeks (around 12/18/2011). Patient Education Topic: as above Method: Verbal Taught to: Patient Barriers: None Outcomes: Verbalized understanding Suzanne Schwarz MD Estimator PGY3 Attestation statement: I discussed the patient with the resident/fellow at the time of the visit and agree with the findings and plan of care. Ebony Shea MD 11/29/2011 9:48 documented in this encounter Plan of Treatment Not on file documented as of this encounter Visit Diagnoses Diagnosis Depression Depressive disorder, not elsewhere classified Anxiety Anxiety state, unspecified documented in this encounter Discontinued Medications Medication Sig Discontinue Reason Start Date End Da te sertraline (ZOLOFT) 25 mg tabletIndications:Depre ssion,Anxiety Take 1 Tab by mouth daily. After one week increase to 2 tabs daily. Reorder 10/30/2011 11/20/2011 documented as of this encounter Care Teams Community Relations Liaison Relationship Specialty Start Date End Date Roxanna Hannah MD [address] [place] [phone] PCP - General 03/28/09 05/31/20 documented as of this encounter
--- OUTSIDE RECORDS SUMMARY | 2024-10-06 13:51 | XMS_ITS | Encounter Summary ---
Author Organization [facility] Address [address] [place] [address] Care Team Providers Care Brick Grader Name Role Phone Roxanna Hannah MD Primary Care Provider + Encounter Details Date Type Department Care Team (Late st Contact Info) Description 08/25/2009 Abstract [facility] Family Medicine [address] [phone] Roxanna Hannah MD [address] [place] [phone] Social History Tobacco Use Types Packs/Day Years [...] on filedocumented in this encounter Care Teams Brick Grader Relationship Specialty Start Date End Date Roxanna Hannah MD [address] [place] [phone] PCP - General 03/28/09 05/31/20 documented as of this encounter
--- OUTSIDE RECORDS SUMMARY | 2024-10-06 13:51 | XMS_ITS | Encounter Summary ---
Author Organization [facility] Address [address] [place] [address] Care Team Providers Care Delivery And Mail Sorter Name Role Phone Roxanna Hannah MD Primary Care Provider + Reason for Visit * Reason Comments Hypertension patient in today for fasting bloodwork per order of Dr Roxanna Hannah Hyperlipidemia Seizures Encounter Details Date Type Department Care Team (Late st Contact Info) Description 07/26/2011 9:15 EDT Nurse Only [facility] - [address] [address] Unknown, Provider, Roxanna Braswell MD [address] [place] [address] [phone] Nurse, [facility] Ronnie White, RN Essential hypertension; Seizure disorder (CMS-HCC); Hyperlipidemia Discharge Disposition: Auto Discharge Social History Tobacco [...] on file documented as of this encounter Discharge Disposition Disposition Code Departure Means Destination Auto Discharge documented in this encounter Progress Notes * Sherrie Mackenzie - 07/26/2011 1123 EDTAddended by: SHERRIE MACKENZIE on: 07/26/2011 Modules accepted: Level of Service * Sherrie Mackenzie - 07/26/2011 0947 EDT Venipuncture performed per order of Dr Roxanna Hannah. I was supervised by Dr Jackie Bates who was present and immediately available in the office suite. 07/26/2011 9:46 Sherrie Mackenzie MA documented in this encounter Plan of Treatment Not on file documented as of this encounter Procedures Procedure Name Priority Date/Time Associated Diagnosis Comments COMPLETE BLOOD COUNT Routine 07/26/2011 9:19 EDT Essential hypertension VALPROIC ACID LEVEL Routine 07/26/2011 9 :19 EDT Seizure disorder (CMS-HCC) LIPID PROFILE (INCLUDES CHOLESTEROL, TRIGLYCERIDES, HDL, LDL) Routine 07/26/2011 9:19 EDT Essential hypertension COMPREHENSIVE METABOLIC PANEL (CMP) Routine 07/26/2011 9:19 EDT Essential hypertension documented in this encounter Results * VALPROIC ACID LEVEL (07/26/2011 9:19 EDT) Valproic Acid 92.9 50.0 - 100.0 ug/ml [facility] Blood specimen (specimen) 07/26/2011 9:19 EDT 07/26/2011 18:45 EDT us Roxanna Hannah MD CHEMISTRY & BLOOD GAS OR DERABLES Final Result [facility] [address] [place] [address] * (ABNORMAL) HEMAGRAM (07/26/2011 9:19 EDT) WBC 6.94 4.0 - 10.4 K/cmm [facility] RBC 4.90 4.36 - 5.78 M/cmm [facility] Hemoglobin 15.7 13.8 - 17.3 gm/dl [facility] HCT 46.0 39.5 - 50.2 % [facility] MCV 94 81 - 95 fl [facility] MCH 32.1 27.6 - 33.0 pg [facility] MCHC 34.2 32.8 - 36.4 gm/dl [facility] PLT 178 141 - 320 K/cmm [facility] RDW-CV 14.5(H) 11.8 - 14.1 % [facility] Blood specimen (specimen) 07/26/2011 9:19 EDT 07/26/2011 18:45 EDT us Roxanna Hannah MD HEMATOLOGY & PF4 ORDERAB LES Final Result [facility] [address] [place] [address] * (ABNORMAL) COMPREHENSIVE METABOLIC PANEL (CMP) (07/26/2011 9:19 EDT) Potassium 4.5 3.5 - 5.0 mEq/L [facility] Sodium 142 136 - 145 mEq/L [facility] Chloride 103 96 - 110 mEq/L [facility] CO2 29 24 - 32 mEq/L [facility] Total Alkaline Phosphatase 58 38 - 126 U/L [facility] Bilirubin, Total 0.7 0.2 - 1.3 mg/dl [facility] AST 29 15 - 46 U/L [facility] ALT 46 21 - 72 U/L [facility] Albumin 4.2 3.4 - 4.9 g/dl [facility] Total Protein 7.1 6.5 - 8.3 g/dl [facility] Creatinine 0.91 0.7 - 1.5 mg/dl [facility] GFR, Calculated >60 ml/min/1.7 3m2 [facility] BUN 27(H) 10 - 26 mg/dl [facility] Calcium 9.5 8.5 - 10.5 mg/dl [facility] Calculated Calcium 9.7 8.5 - 10.5 mg/dl [facility] Glucose, Serum 109(H) 70 - 100 mg/dl [facility] Fasting? Unknown [facility] Blood specimen (specimen) 07/26/2011 9:19 EDT 07/26/2011 18:45 EDT Roxanna Hannah MD CHEMISTRY & BLOOD GAS OR DERABLES Final Result Performing Organization Address [facility] de Phone Number [facility] [address] [place] [address] * LIPID PROFILE (INCLUDES CHOLESTEROL, TRIGLYCERIDES, HDL, LDL) (07/26/2011 9:19 EDT) Cholesterol 141 mg/dl [facility] Comment:Desirable:<200 Borde rline High:200-239 High:>qu=091 Triglycerides 133 35 - 160 mg/dl [facility] HDL 30 mg/dl [facility] Comment:Low:<40 High(Desirab le):>or=60 LDL, Calculated 84 mg/dl [facility] Comment: Optimal:<100 Above optimal:100-129 Borderline High:130-159 High:160-189 Very High:>bs=590 Chol/HDL Ratio 4.7 [facility] Fasting? Unknown [facility] Blood specimen (specimen) 07/26/2011 9:19 EDT 07/26/2011 18:45 EDT Roxanna Hannah MD CHEMISTRY & BLOOD GAS OR DERABLES Final Result Performing Organization Address [facility] de Phone Number [facility] [address] [place] [address] documented in this encounter Visit Diagnoses Diagnosis Essential hypertension Unspecified essential hypertension Seizure disorder (HCC-CMS) Unspecified epilepsy without mention of intractable epilepsy Hyperlipidemia Other and unspecified hyperlipidemia documented in this encounter Care Teams Delivery And Mail Sorter Relationship Specialty Start Date End Date Roxanna Hannah MD [address] [place] [phone] PCP - General 03/28/09 05/31/20 documented as of this encounter
--- OUTSIDE RECORDS SUMMARY | 2024-10-06 13:51 | XMS_ITS | Encounter Summary ---
Author Organization [facility] Address [address] [place] [address] Care Team Providers Care Watershed Program Manager Name Role Phone Roxanna Hannah MD Primary Care Provider + Reason for Visit * Reason Onset Date Comments Back Pain 02/05/2011 Encounter Details Date Type Department Care Team (Late st Contact Info) Description 02/05/[address] [phone] Roxanna Hannah MD [address] [place] [phone] Back Pain Social History Tobacco Use [...] Telephone Encounter - Jasmin Lino RN - 02/06/2011 1421 EDT Several attempts made to reach pt without success, msgs. Left. Message left for pt to call if they still require our assistance. * Telephone Encounter - Chari Patterson - 02/05/2011 1050 EDT Patient was in to see Dr [...] on filedocumented in this encounter Care Teams Watershed Program Manager Relationship Specialty Start Date End Date Roxanna Hannah MD [address] [place] [phone] PCP - General 03/28/09 05/31/20 documented as of this encounter
--- OUTSIDE RECORDS SUMMARY | 2024-10-06 13:51 | XMS_ITS | Encounter Summary ---
Author Organization [facility] Address [address] [place] [address] Care Team Providers Care Collect On Delivery Clerk Name Role Phone Roxanna Hannah MD Primary Care Provider + Encounter Details Date Type Department Care Team (Late st Contact Info) Description 09/02/2009 Abstract [facility] [address] [address] Roxanna Hannah MD [address] [place] [address] [phone] Social History Tobacco Use Types Packs/Day Years [...] on filedocumented in this encounter Care Teams Collect On Delivery Clerk Relationship Specialty Start Date End Date Roxanna Hannah MD [address] [place] [address] [phone] PCP - General 03/28/09 05/31/20 documented as of this encounter
--- OUTSIDE RECORDS SUMMARY | 2024-10-06 13:51 | XMS_ITS | Encounter Summary ---
Author Organization [facility] Address [address] [place] [address] Care Team Providers Care Technical Illustrator Name Role Phone Roxanna Hannah MD Primary Care Provider + Reason for Visit * Reason Onset Date Comments Medication Problem 07/14/2010 Encounter Details Date Type Department Care Team (Late st Contact Info) Description 07/14/2010 Refill [facility] Family Medicine - [address] [address] Roxanna Hannah MD [address] [place] [address] [phone] Medication Problem Social History Tobacco Use Types [...] encounter Miscellaneous Notes * Telephone Encounter - Alis Cardona - 07/14/2010 1416 EDT Spoke with Nancy, pharmacist for [facility], in regards to clarification of Divalproex. They were questioning is the medication was regular or extended release. Advised pt had medication reorder from [facility] and therefore it needed to be the same and previously Rx'd. * Telephone Encounter - Tootie Raye - 07/14/2010 1342 EDT [facility] would like to know if the Divalproex is extended release. Please call using Ref # [id number] documented in this encounter Plan of Treatment Not on file documented as of this encounter Visit Diagnoses Not on filedocumented in this encounter Care Teams Technical Illustrator Relationship Specialty Start Date End Date Roxanna Hannah MD [address] [place] [phone] PCP - General 03/28/09 05/31/20 documented as of this encounter
--- OUTSIDE RECORDS SUMMARY | 2024-10-06 13:51 | XMS_ITS | Encounter Summary ---
Author Organization [facility] Address [address] [place] [address] Care Team Providers Care Process Stripper Name Role Phone Roxanna Hannah MD Primary Care Provider + Reason for Visit * Reason Onset Date Comments Medications Refill 05/02/2012 Encounter Details Date Type Department Care Team (Late st Contact Info) Description 05/02/2012 Refill [facility] Family [facility] [address] [address] Roxanna Hannah MD [address] [place] [address] [phone] Medications Refill Social History Tobacco Use Types [...] mouth daily. 90 Cap 3 05/02/2012 04/25/2013 documented in this encounter Miscellaneous Notes * Telephone Encounter - Isaura Ray - 05/02/2012 4492 EDT Name of Medication Omeprazole #90 w/ 3 RF Last Refill Date 07/11/11 Last Visit Date 01/01/12 Next Visit Date None Is patient out of medication? unknown documented in this encounter Plan of Treatment Not on file documented as of this encounter Visit Diagnoses Not on filedocumented in this encounter Discontinued Medications Medication Sig Discontinue Reason Start Date End Da te omeprazole (PRILOSEC) 20 mg capsule Take 1 Cap by mouth daily. Reorder 07/11/2011 05/02/2012 documented as of this encounter Care Teams Process Stripper Relationship Specialty Start Date End Date Roxanna Hannah MD [address] [place] [phone] PCP - General 03/28/09 05/31/20 documented as of this encounter
--- OUTSIDE RECORDS SUMMARY | 2024-10-06 13:51 | XMS_ITS | Encounter Summary ---
Author Organization [facility] Address [address] [place] [address] Care Team Providers Care Tool Polisher Name Role Phone Roxanna Hannah MD Primary Care Provider + Reason for Visit * Reason Onset Date Comments Colonoscopy 09/21/2010 Immunizations 09/21/2010 tdap Encounter Details Date Type Department Care Team (Late st Contact Info) Description 09/21/[address] [facility] Family Medicine - [address] [phone] Roxanna Hannah MD [address] [place] [address] [phone] Colonoscopy; Immunizations (tdap) Social History Tobacco Use Types Packs/Day Years [...] encounter Miscellaneous Notes * Telephone Encounter - Melissa Dixon - 09/21/2010 0859 EDT Pt stated that he does want a colonoscopy, please complete order. Pt stated that he will have his Tdap through is employer. documented in this encounter Plan of Treatment Scheduled Orders Name Type Priority Associated Diagnoses Orde r Schedule COLONOSCOPY GI Routine Screening colonoscopy Ordered: 09/21/2010 documented as of this encounter Visit Diagnoses Diagnosis Screening colonoscopy- Primary Special screening for malignant neoplasms, colon documented in this encounter Care Teams Tool Polisher Relationship Specialty Start Date End Date Roxanna Hannah MD [address] [place] [phone] PCP - General 03/28/09 05/31/20 documented as of this encounter
--- OUTSIDE RECORDS SUMMARY | 2024-10-06 13:51 | XMS_ITS | Encounter Summary ---
Author Organization [facility] Address [address] [place] [address] Care Team Providers Care Cloud Security Architect Name Role Phone Roxanna Hannah MD Primary Care Provider + Encounter Details Date Type Department Care Team (Late st Contact Info) Description 07/17/2010 Abstract [facility] Family [address] [address] Roxanna Hannah MD [address] [place] [phone] Social History Tobacco Use Types Packs/Day Years [...] on filedocumented in this encounter Care Teams Cloud Security Architect Relationship Specialty Start Date End Date Roxanna Hannah MD [address] [place] [phone] PCP - General 03/28/09 05/31/20 documented as of this encounter
--- OUTSIDE RECORDS SUMMARY | 2024-10-06 13:51 | XMS_ITS | Encounter Summary ---
Author Organization [facility] Address [address] [place] [address] Care Team Providers Care Building Maintenance Superintendent Name Role Phone Roxanna Hannah MD Primary Care Provider + Reason for Referral * Consult, Test and Treat (Routine) - Closed Specialty Diagnoses / Procedures Referred By Nela bravo Referred To Contact Diagnoses Shoulder pain Roxanna Hannah MD Phone: tel: fax: Referral ID Status Reason Start Date Expiration Date V isits Requested Visits Authorized [id number] Closed Specialty Services Required 07/11/2011 1 1 Question Answer Reason for Request: left shoulder pain, decreased ROM, s/p surgery for multiple dislocations years ago Comments Modalities [facility] [place] Reason for Visit * Reason Comments Medication Management Pt is here to foll ow up on his htn Encounter Details Date Type Department Care Team (Late st Contact Info) Description 07/11/2011 12:15 EDT Office Visit [facility] Family Medicine - [address] [phone] Roxanna Hannah MD [address] [place] [address] [phone] Seizure disorder (CMS-HCC); Essential hypertension; GERD (gastroesophageal reflux disease); Hyperlipidemia; Shoulder pain; Need for fewcbdmgxn-kywomqp-f ertussis (Tdap) vaccine; Colon cancer (CMS-HCC) (HCC-CMS) Discharge Disposition: Auto Discharge Social [...] Sign Reading Time Taken Comments Blood Pressure 116/80 07/11/2011 1228 EDT Pulse 76 07/11/2011 1228 EDT Temperature - - Respiratory Rate - - Oxygen Saturation - - Inhaled Oxygen Concentration - - Weight 108 kg (238 lb) 07/11/2011 1228 EDT Height - - Body Mass Index - - documented in this encounter Ordered Prescriptions Prescription Sig Dispense Quantity Refills Last Filled Start Date End Date PEG 3350-Electrolytes (GOLYTELY) Take 4 L by mouth. Instructions mailed once procedure scheduled. Questions: [facility] Dept.: [phone] or GI Doctor's Office. 4 L 0 07/11/2011 1 simvastatin (ZOCOR) 40 mg tablet Take 1 Tab by mouth daily. 90 Each 3 07/11/2011 2 divalproex (DEPAKOTE) 500 mg ER tablet Take 3 Tabs by mouth daily. Brand name 270 Tab 3 07/11/2011 2 omeprazole (PRILOSEC) 20 mg capsule Take 1 Cap by mouth daily. 90 Cap 3 07/11/2011 2 hydrochlorothiazi de (MICROZIDE) 12.5 mg capsule Take 1 Cap by mouth daily. 90 Cap 3 07/11/2011 2 documented in this encounter Discharge Disposition Disposition Code Departure Means Destination Auto Discharge documented in this encounter Progress Notes * Roxanna Hannah MD - 07/12/2011 0809 EDT Subjective: Patient ID: Mario Curry is an 56 y.o. male. Chief Complaint Patient presents with ??? Medication Management Pt is here to follow up on his htn Hypertension This is a chronic problem. The current episode started more than 1 year ago. The problem is unchanged. The problem is controlled. Pertinent negatives include no chest pain, headaches, palpitations, peripheral edema or shortness of breath. There are no associated agents to hypertension. Risk factorsfor coronary artery disease include dyslipidemia and male gender. He has tried diuretics and lifesty le changes for the symptoms. The current treatment provides significant improvement of lipids. There are no compliance problems. There is no history of kidney disease, CAD/[place], heart failure or a thyroid problem. There is no history of chronic renal disease or sleep apnea. Due for fasting labs Reviewed previous shoulder issues. S/p surgery 10 + yrs ago for recurrent dislocations [place]. ROM is limited but more bothered by pain issues Would like to re-try PT with modalities to see if helps GERD ok as long as uses PPI No recent seizures Patient Active Problem List Diagnoses Code ??? Routine General Medical Examination at [facility] V70.0A ??? Seizure Disorder 345.90DQ ??? GERD (Gastroesophageal Reflux Disease) 530.81S ??? Essential Hypertension 401.9AD ??? Hyperlipidemia 272.4S ??? Allergic Rhinitis 477.9AD ??? Abnormal Glucose Tolerance Test 790.22J ??? Erectile Dysfunction 607.84D ??? Atypical chest pain 786.59AC Past Medical History Diagnosis Date ??? Erectile dysfunction ??? Abnormal glucose tolerance test 03/09/2009 ??? Allergic rhinitis 03/19/2007 ??? Hyperlipidemia 01/31/2005 ??? Essential hypertension 10/24/2004 ??? Seizure disorder 08/05/2002 ??? Routine general medical examination at [facility] 08/05/2002 ??? GERD (gastroesophageal reflux disease) 08/05/2002 Current outpatient prescriptions ordered prior to encounter Medication Sig Dispense Refill ??? aspirin 81 mg EC tablet Take 81 mg by mouth daily. ??? MULTIVITAMINS (MULTI-VITAMIN ORAL) Take 1 Tab by mouth daily. ??? ibuprofen (MOTRIN) 200 mg tablet Take 400-800 mg by mouth every 6 hours as needed. ??? GLUCOSAMINE [id number] ORAL Take 1 Tab by mouth daily. [...] for headaches. - See HPI Objective: BP 116/80 Pulse 76 Wt 107.956 kg (238 lb) Physical Exam Constitutional: He appears well-developed and well-nourished. No distress. HENT: Head: Normocephalic and atraumatic. Eyes: No scleral icterus. Musculoskeletal: Left shoulder - ABDuction just above 90 degress Assessment: Plan: Mario was seen today for medication management. Diagnoses and associated orders for this visit: Seizure disorder, stable con't Depakote ER 1500 mg daily - Valproic Acid Level; Future Essential hypertension At goal con't current management - LIPID PROFILE (INCLUDES CHOLESTEROL, TRIGLYCERIDES, HDL, LDL); Future - COMPREHENSIVE METABOLIC PANEL (CMP); Future - HEMAGRAM; Future Gerd (gastroesophageal reflux disease) Stable on PPI daily Hyperlipidemia At goal Due for fasting labs con't current management Shoulder pain, chronic S/p surgery > 10 yrs ago for recurrent dislocations Understands will never have full range of motion but wonders if can get some improved pain relief with PT - Ambulatory Consult Physical Therapy Need for chwbmqbbms-comvdfv-fkdwzpfqn (tdap) vaccine - Tdap vaccine greater than or equal to 7yo IM Colon cancer - Colonoscopy Other Orders - hydrochlorothiazide (MICROZIDE) 12.5 mg capsule; Take 1 Cap by mouth daily. - omeprazole (PRILOSEC) 20 mg capsule; Take 1 Cap by mouth daily. - divalproex (DEPAKOTE) 500 mg ER tablet; Take 3 Tabs by mouth daily. Brand name - simvastatin (ZOCOR) 40 mg tablet; Take 1 Tab by mouth daily. - PEG 3350-Electrolytes (GOLYTELY); Take 4 L by mouth. Instructions mailed once procedure scheduled. Questions: [facility] Dept.: [phone] or GI Doctor's Office. * Ina Wan LPN - 07/11/2011 1305 EDT Patient Education Topic: Tdap, IM Left Deltoid, without incident Method: Handout Taught to: Patient Barriers: None Outcomes: verbalized understanding Signature: documented in this encounter Plan of Treatment Scheduled Orders Name Type Priority Associated Diagnoses Orde r Schedule COLONOSCOPY GI Routine Colon cancer (CMS-HCC) (HCC-[facility]) Ordered: 07/11/2011 Scheduled Referrals Name Type Priority Associated Diagnoses Orde r Schedule AMB CONSULT PHYSICAL THERAPY Outpatient Referral Routine Shoulder pain Ordered: 07/11/2011 documented as of this encounter Results * VALPROIC ACID LEVEL (07/26/2011 9:19 EDT) Valproic Acid 92.9 50.0 - 100.0 ug/ml [facility] Blood specimen (specimen) 07/26/2011 9:19 EDT 07/26/2011 18:45 EDT Roxanna Hannah MD CHEMISTRY & BLOOD GAS OR DERABLES Final Result [facility] [address] [place] [address] * (ABNORMAL) HEMAGRAM (07/26/2011 9:19 EDT) WBC 6.94 4.0 - 10.4 K/cmm [facility] RBC 4.90 4.36 - 5.78 M/cmm [facility] Hemoglobin 15.7 13.8 - 17.3 gm/dl [facility] HCT 46.0 39.5 - 50.2 % [facility] MCV 94 81 - 95 fl [facility] MCH 32.1 27.6 - 33.0 pg [facility] MCHC 34.2 32.8 - 36.4 gm/dl [facility] PLT 178 141 - 320 K/cmm [facility] RDW-CV 14.5(H) 11.8 - 14.1 % [facility] Blood specimen (specimen) 07/26/2011 9:19 EDT 07/26/2011 18:45 EDT us Roxanna Hannah MD HEMATOLOGY & PF4 ORDERAB LES Final Result [facility] [address] [place] [address] * (ABNORMAL) COMPREHENSIVE METABOLIC PANEL (CMP) (07/26/2011 9:19 EDT) Potassium 4.5 3.5 - 5.0 mEq/L [facility] Sodium 142 136 - 145 mEq/L [facility] Chloride 103 96 - 110 mEq/L [facility] CO2 29 24 - 32 mEq/L [facility] Total Alkaline Phosphatase 58 38 - 126 U/L [facility] Bilirubin, Total 0.7 0.2 - 1.3 mg/dl [facility] AST 29 15 - 46 U/L [facility] ALT 46 21 - 72 U/L [facility] Albumin 4.2 3.4 - 4.9 g/dl [facility] Total Protein 7.1 6.5 - 8.3 g/dl [facility] Creatinine 0.91 0.7 - 1.5 mg/dl [facility] GFR, Calculated >60 ml/min/1.7 3m2 [facility] BUN 27(H) 10 - 26 mg/dl [facility] Calcium 9.5 8.5 - 10.5 mg/dl [facility] Calculated Calcium 9.7 8.5 - 10.5 mg/dl [facility] Glucose, Serum 109(H) 70 - 100 mg/dl [facility] Fasting? Unknown [facility] Blood specimen (specimen) 07/26/2011 9:19 EDT 07/26/2011 18:45 EDT us Roxanna Hannah MD CHEMISTRY & BLOOD GAS OR DERABLES Final Result [facility] [address] [place] [address] * LIPID PROFILE (INCLUDES CHOLESTEROL, TRIGLYCERIDES, HDL, LDL) (07/26/2011 9:19 EDT) Cholesterol 141 mg/dl [facility] Comment:Desirable:<200 Borde rline High:200-239 High:>nd=511 Triglycerides 133 35 - 160 mg/dl [facility] HDL 30 mg/dl [facility] Comment:Low:<40 High(Desirab le):>or=60 LDL, Calculated 84 mg/dl [facility] Comment: Optimal:<100 Above optimal:100-129 Borderline High:130-159 High:160-189 Very High:>kc=996 Chol/HDL Ratio 4.7 [facility] Fasting? Unknown [facility] Blood specimen (specimen) 07/26/2011 9:19 EDT 07/26/2011 18:45 EDT us Roxanna Hannah MD CHEMISTRY & BLOOD GAS OR DERABLES Final Result Performing Organization Address City/State/[facility] Co de Phone Number [facility] [address] [place] [address] documented in this encounter Visit Diagnoses Diagnosis Seizure disorder (HCC-CMS) Unspecified epilepsy without mention of intractable epilepsy Essential hypertension Unspecified essential hypertension GERD (gastroesophageal reflux disease) Esophageal reflux Hyperlipidemia Other and unspecified hyperlipidemia Shoulder pain Pain in joint, shoulder region Need for cdwssjztke-nhuuzuq-yhqztndvw (Tdap) vaccine Need for prophylactic vaccination with combined evulfjcnra-kmfkhom-hobpdbbwl (DTP) vaccine Colon cancer (HCC-CMS) Malignant neoplasm of colon, unspecified site documented in this encounter Discontinued Medications Medication Sig Discontinue Reason Start Date End Da te hydrochlorothiazide (MICROZIDE) 12.5 mg capsule Take 1 Cap by mouth daily. Duplicate Therapy 07/12/2010 07/11/2011 gabapentin (NEURONTIN) 300 mg capsuleIndications:[place] k pain Take 1 Cap by mouth daily. Patient Stopped Taking 02/13/2011 07/11/2011 omeprazole (PRILOSEC) 20 mg capsule Take 1 Cap by mouth daily. Duplicate Therapy 04/02/2011 07/11/2011 hydrochlorothiazide (MICROZIDE) 12.5 mg capsule TAKE 1 CAPSULE DAILY Reorder 07/05/2011 07/11/2011 omeprazole (PRILOSEC) 20 mg capsule Take 1 Cap by mouth daily. Reorder 04/02/2011 07/11/2011 divalproex (DEPAKOTE) 500 mg ER tablet Take 3 Tabs by mouth daily. Brand name Reorder 07/17/2010 07/11/2011 simvastatin (ZOCOR) 40 mg tablet Take 1 Tab by mouth daily. Reorder 07/12/2010 07/11/2011 documented as of this encounter Orders Immunization/Injection Count Last Ordered Date First Ordered Date TDAP VACCINE =>7YO IM 1 07/11/2011 documented in this encounter Care Teams Building Maintenance Superintendent Relationship Specialty Start Date End Date Roxanna Hannah MD [address] [place] [phone] PCP - General 03/28/09 05/31/20 documented as of this encounter
--- OUTSIDE RECORDS SUMMARY | 2024-10-06 13:51 | XMS_ITS | Encounter Summary ---
Author Organization [facility] Address [address] [place] [address] Care Team Providers Care Supervisor [employer] Name Role Phone Roxanna Hannah MD Primary Care Provider + Reason for Visit * Reason Onset Date Comments Medication Problem 07/14/2010 Encounter Details Date Type Department Care Team (Late st Contact Info) Description 07/14/2010 Refill [facility] [address] [phone] Alis Cardona, respiratory therapy director Problem Social History Tobacco Use Types Packs/Day [...] Date End Date divalproex (DEPAKOTE) 500 mg ER tablet Take 3 Tabs by mouth daily. Brand name 270 Tab 3 07/17/2010 07/11/2011 documented in this encounter Miscellaneous Notes * Telephone Encounter - Roxanna Hannah MD - 07/17/2010 0604 EDT con't same formulation as to what has been on previously * Telephone Encounter - Alis Cardona - 07/14/2010 1517 EDT Spoke with Pharmacist, Nancy, from [facility]. Pt has been on Brand Name Depakote ER since 08/2008 and last Rx was for Brand Name Depakote EC which is a different release formula. Pharmacy requesting clarification of which to send to pt. Ref # [id number]. Pharmacist gayathri DANIELLE out of office until Saturday. documented in this encounter Plan of Treatment Not on file documented as of this encounter Visit Diagnoses Not on filedocumented in this encounter Discontinued Medications Medication Sig Discontinue Reason Start Date End Da te divalproex (DEPAKOTE) 500 mg EC tablet Take 1 Tab by mouth 3 times daily. 3 tabs 07/12/2010 07/17/2010 documented as of this encounter Care Teams Supervisor [employer] Relationship Specialty Start Date End Date Roxanna Hannah MD [address] [place] [phone] PCP - General 03/28/09 05/31/20 documented as of this encounter
--- OUTSIDE RECORDS SUMMARY | 2024-10-06 13:51 | XMS_ITS | Encounter Summary ---
Author Organization [facility] Address [address] [place] [address] Care Team Providers Care Wedding Photographer Name Role Phone Roxanna Hannah MD Primary Care Provider + Reason for Visit * Reason Onset Date Comments Back Pain 07/19/2010 Encounter Details Date Type Department Care Team (Late st Contact Info) Description 07/19/2010 Telephone [facility] Family Medicine [address] [phone] Roxanna Hannah MD [address] [place] [phone] Back Pain Social History Tobacco Use Types [...] every 6 hours as needed for Pain. 30 Tab 0 07/19/2010 01/16/2011 documented in this encounter Miscellaneous Notes * Telephone Encounter - Maggie Andrade LPN - 07/19/2010 9744 EDT Patient was called and was told that Tramadol had been prescribed. Patient was strongly encouraged to obtain xray of T-spine that had been ordered and to have f/u made with Dr. Hannah prior to running out of meds. Appointment with Dr. Hannah 07/26/10 @ 1230. * Telephone Encounter - Roxanna Hannah MD - 07/19/2010 1325 EDT Trial Ultram 50 mg tid prn e-Rx to [facility] * Telephone Encounter - Maggie Andrade LPN - 07/19/2010 1141 EDT Has not had xray taken at [facility] yet;felt tingling into right arm right into fingers;felt a snapping sensation and did it yesterday also. Was on a garden tractor and got jerked backwards when he stepped on the clutch. Was a 10 when it occurred, now a 1-2. Taking 2 Ibuprofen tablets at a time, and sometimes 3. Appointment made to see Dr. Lynn stevenson. @ 0800 as he would like something stronger for pain when pain occurs. * Telephone Encounter - Aurea Stevens - 07/19/[address] Hannah for his back pain, he has an upcoming Xray and referral appointment concerning this issue. Today at work he injured his back even more, he is wondering if he could get a stronger pain medicine? He is currently taking just ibuprofen and it's not touching his back pain. He uses [facility] in [place]. documented in this encounter Plan of Treatment Not on file documented as of this encounter Visit Diagnoses Not on filedocumented in this encounter Care Teams Wedding Photographer Relationship Specialty Start Date End Date Roxanna Hannah MD [address] [place] [phone] PCP - General 03/28/09 05/31/20 documented as of this encounter
--- OUTSIDE RECORDS SUMMARY | 2024-10-06 13:51 | XMS_ITS | Encounter Summary ---
Author Organization [facility] Address [address] [place] [address] Care Team Providers Care Mobile Web Application Developer Name Role Phone Roxanna Hannah MD Primary Care Provider + Reason for Visit * Reason Onset Date Comments Medications Refill 06/11/2012 Encounter Details Date Type Department Care Team (Late st Contact Info) Description 06/11/2012 Refill [facility] Family Medicine - [address] [address] Roxanna Hannah MD [address] [place] [address] [phone] Medications Refill Social History Tobacco Use Types [...] * Telephone Encounter - Isaura Ray - 06/11/2012 1248 EDT Name of Medication Zocor #90 w/ 3 RF Depakote # 270 w/ 3 RF Last Refill Date 07/11/11 07/18/11 Last Visit Date 01/01/12 Next Visit Date Reminder for April, message left for patient to call Is patient out of medication? unknown documented in this encounter Plan of Treatment Not on file documented as of this encounter Visit Diagnoses Not on filedocumented in this encounter Care Teams Mobile Web Application Developer Relationship Specialty Start Date End Date Roxanna Hannah MD [address] [place] [phone] PCP - General 03/28/09 05/31/20 documented as of this encounter
--- OUTSIDE RECORDS SUMMARY | 2024-10-06 13:51 | XMS_ITS | Encounter Summary ---
Author Organization [facility] Address [address] [place] [address] Care Team Providers Care Supervisor Sign Shop Name Role Phone Roxanna Hannah MD Primary Care Provider + Reason for Visit * Reason Onset Date Comments Labs Only 08/28/2010 Encounter Details Date Type Department Care Team (Late st Contact Info) Description 08/28/2010 Telephone [facility] Family Medicine - [address] [phone] Roxanna Hannah MD [address] [place] [address] [phone] Labs Only Social History Tobacco Use Types [...] * Telephone Encounter - Alis Cardona - 08/31/2010 1645 EDT Pt call back today to state his received a call about having the labs repeated. Advised the ptthat order did not come from this office and that the note from the urologist does not mention a redraw. Pt advised to contact Dr Brown office for clarification. * Telephone Encounter - Roxanna Hannah MD - 08/29/2010 1632 EDT Pleas ask pt why we need to check these again. No mention of this in urology note. * Telephone Encounter - Vivien Kim LPN - 08/28/2010 1229 EDT Looks like patient just had PSA and testosterone levels checked on 08/02/[address] Brown. Unsure why he would need these rechecked. Can you review urology notes and advise please. * Telephone Encounter - Yashira Bright - 08/28/2010 1033 EDT Patient looking to get some bloodwork scheduled. Looking to get a testoterone level checked, PSA test. Original order came from Dr Brown. Can we pend something for him and schedule an appt? Please advise. documented in this encounter Plan of Treatment Not on file documented as of this encounter Visit Diagnoses Not on filedocumented in this encounter Care Teams Supervisor Sign Shop Relationship Specialty Start Date End Date Roxanna Hannah MD [address] [place] [address] [phone] PCP - General 03/28/09 05/31/20 documented as of this encounter
--- OUTSIDE RECORDS SUMMARY | 2024-10-06 13:51 | XMS_ITS | Encounter Summary ---
Author Organization [facility] Address [address] [place] [address] Care Team Providers Care Collection Support Specialist Name Role Phone Yanira Romero MD Primary Care Provider + Encounter Details Date Type Department Care Team (Late st Contact Info) Description 09/12/2011 Results Only [facility] Gastroenterology - [facility] [address] [place], [place] [address] Lorelei Rosa MD [address] [facility], [address] [place] [phone] Social History Tobacco Use Types [...] Date/Time Associated Diagnosis Comments SURGICAL PATHOLOGY Routine 09/12/2011 0:00 EDT documented in this encounter Results * SURGICAL PATHOLOGY (09/12/2011 0:00 EDT) Pathology Report: SURGICAL PATHOLOGY REPORT Reports generated via electronic interface contain original data; however they are lacking the format of the original report. Caution should be taken when reading/interpreti ng unformatted reports. Name: ? MARIO CURRY ? Accession #: ? [id number] ? : ? 1955 (Age: 56) ??M ? Collect Date: ? 09/12/2011 ? Location: ? [facility] ? Receive Date: ? 09/12/2011 ? Provider: LORELEI ROSA MD Copy to: YANIRA ROMERO MD ? Final Pathologic Diagnosis: ? Cecum, polyp, biopsy: - Tubular adenoma. Document reviewed and electronically signed by: ZACK JOINER MD Report ??Date: 09/13/2011 16:14 By the signature above, the attending physician certifies that he/she has personally conducted a gross and/or microscopic examination of the described specimens and rendered or confirmed the above diagnosis. Specimen(s) Received: ? Cecal polyp Clinical History: ? Colon polyp Gross Description: ? Received in formalin labelled Mario Curry and cecum are two pink-vu irregular soft tissues, 0.1 x 0.1 x 0.1 cm and 0.3 x 0.3 x 0.3 cm, submitted in toto in a single cassette. (Courtney Ortiz)/mpl End of Report [facility] 09/12/2011 09/12/2011 12: 11 EDT us Lorelei Rosa MD PATHOLOGY ORDERABLES Final Result [facility] [address] [place] [address] documented in this encounter Visit Diagnoses Not on filedocumented in this encounter Care Teams Collection Support Specialist Relationship Specialty Start Date End Date Yanira Romero MD [address] [place] [phone] PCP - General 03/28/09 05/31/20 documented as of this encounter
--- OUTSIDE RECORDS SUMMARY | 2024-10-06 13:51 | XMS_ITS | Encounter Summary ---
Author Organization [facility] Address [address] [place] [address] Care Team Providers Care Dot Compliance Manager Name Role Phone Roxanna Hannah MD Primary Care Provider + Encounter Details Date Type Department Care Team (Latest Contact Info) Description 01/26/2011 19:43 EST - 01/26/2011 23:59 EST Hospital Encounter [facility] [address] [place] [address] Pradeep Perkins MD Discharge Disposition: Home or Self Care Social [...] on file documented as of this encounter Medications at Time of Discharge aspirin 81 mg EC tablet Take 1 Tablet by mouth daily. MULTIVITAMINS (MULTI-VITAMIN ORAL) Take 1 Tab by mouth daily. Cod Liver Oil Cap Take 1 Cap by mouth 2 times daily. 01/16/2011 11/07/2012 divalproex (DEPAKOTE) 500 mg ER tablet Take 3 Tabs by mouth daily. Brand name 270 Tab 3 07/17/2010 07/11/2011 gabapentin (NEURONTIN) 100 mg capsuleIndication s:Back pain Take 1 Cap by mouth daily. 90 Cap 2 01/16/2011 02/13/2011 GLUCOSAMINE [id number] T ORAL Take 1 Tab by mouth daily. Pt varies dosing 11/07/2012 hydrochlorothiazi de (MICROZIDE) 12.5 mg capsule Take 1 Cap by mouth daily. 90 Each 3 07/12/2010 07/11/2011 ibuprofen (MOTRIN) 200 mg tablet Take 400-800 mg by mouth every 6 hours as needed. 01/16/2011 07/23/2012 omeprazole (PRILOSEC) 20 mg capsule Take 1 Cap by mouth daily. 90 Cap 3 07/12/2010 04/02/2011 simvastatin (ZOCOR) 40 mg tablet Take 1 Tab by mouth daily. 90 Each 3 07/12/2010 07/11/2011 documented as of this encounter Discharge Disposition Disposition Code Departure Means Destination Home or Self Senior Living documented in this encounter Plan of Treatment Not on file documented as of this encounter Visit Diagnoses Not on filedocumented in this encounter Care Teams Dot Compliance Manager Relationship Specialty Start Date End Date Roxanna Hannah MD [address] [place] [phone] PCP - General 03/28/09 05/31/20 documented as of this encounter
--- OUTSIDE RECORDS SUMMARY | 2024-10-06 13:51 | XMS_ITS | Encounter Summary ---
Author Organization [facility] Address [address] [place] [address] Care Team Providers Care Head Of Sales And Marketing Name Role Phone Roxanna Hannah MD Primary Care Provider + Reason for Visit * Reason Comments Back Pain Encounter Details Date Type Department Care Team (Late st Contact Info) Description 02/13/2011 12:30 EDT Office Visit [address] [id number] Roxanna Hannah MD [address] [place] [address] [phone] Back pain (Primary Dx) Social History Tobacco Use [...] Sign Reading Time Taken Comments Blood Pressure 118/80 02/13/2011 1238 EDT Pulse 72 02/13/2011 1238 EDT Temperature - - Respiratory Rate - - Oxygen Saturation - - Inhaled Oxygen Concentration - - Weight 108.9 kg (240 lb) 02/13/2011 1238 EDT Height - - Body Mass Index - - documented in this encounter Patient Instructions * Patient Instructions* Roxanna Hannah MD - 02/13/2011 13:07 EDT Gradually wean up Neurontin every 5 days or so Start 100 mg three times daily 200 mg three times daily 300 mg three times daily 600 mg three times daily 900 mg three times daily documented in this encounter Ordered Prescriptions Prescription Sig Dispense Quantity Refills Last Filled Start Date End Date gabapentin (NEURONTIN) 300 mg capsuleIndications: Back pain Take 1 Cap by mouth daily. 90 Cap 2 02/13/2011 07/11/2011 documented in this encounter Progress Notes * Roxanna Hannah MD - 02/13/2011 1358 EDT S: here to f/u on right sided mid-back pain. Reviewed note from end Dec with Dr. Linares as well as recent thoracic MRI, neg. Pain about the same, intermittent depending on position. Can have neuropathic component into RUE and hand. Leaning towards or twisting rightwards will trigger symptoms. Wants to have something done about this. Neurontin 100 mg - 300 mg was not helpful. Is using Tylenol and Ibuprofen intermittently to help alleviate symptoms. Thoracic spine XR 08/04 from [facility] showed mild compression at T4 and T11 as well as some DJD O: BP 118/80 Pulse 72 Wt 108.863 kg (240 lb) Gen - well INAD A/P Thoracic back pain, right sided with NEG T-spine MRI Neuropathic component Trial increasing Neurontin every 3-5 days until pain improves or 900 mg tid. Will need to fill RF on the 100 mg capsules as well as the 300 mg capsules (I phoned [facility] to letthem know of weaning up dose) F/u 2-3 mos or sooner prn documented in this encounter Plan of Treatment Not on file documented as of this encounter Visit Diagnoses Diagnosis Back pain- Primary Backache, unspecified documented in this encounter Discontinued Medications Medication Sig Discontinue Reason Start Date End Da te gabapentin (NEURONTIN) 100 mg capsuleIndications:Back pain Take 1 Cap by mouth daily. Reorder 01/16/2011 02/13/2011 documented as of this encounter Care Teams Head Of Sales And Marketing Relationship Specialty Start Date End Date Roxanna Hannah MD [address] [place] [phone] PCP - General 03/28/09 05/31/20 documented as of this encounter
--- OUTSIDE RECORDS SUMMARY | 2024-10-06 13:52 | XMS_ITS | Encounter Summary ---
Author Organization [facility] Address [address] [place] [address] Care Team Providers Care Sas Developer Analyst Name Role Phone Unavailable Primary Care Provider Unavailabl e Encounter Details Date Type Department Care Team (Late st Contact Info) Description 01/27/2001 10:01 EST Hospital Encounter [facility] - Other [address] [place] [address] Aide Roy, [place] [phone] Unknown, Provider, Social History Tobacco Use Types Packs/Day Years [...] learn more about your health please visit: https://www.[facility].org/medcenter/Pages/Wellness-Resources/Hwjnqnudc-Nvoqru-Uf sourc e-Center.aspx LDL < 100 Result Component Hyperlipidemia 56( 0 12:18 EST) No Maggie Andrade LPN HEMOGLOBIN A1C < 7.0 Result Component Type 2 diabetes mellitus ([facility]) 7.7(12/30/19 20 12:18 EST) No Maggie Andrade LPN documented as of this encounter Procedures Procedure Name Priority Date/Time Associated Diagnosis Comments VALPROIC ACID LEVEL Routine 01/27/2001 1 3:45 EST documented in this encounter Results * VALPROIC ACID (01/27/2001 13:45 EST) Valproic Acid 84.6 50.0 - 100.0 ug/ml [facility] Comment:LD 01/27/01 AT 0945 01/27/2001 13:4 5 EST 01/27/2001 21:08 EST us Aide Roy PA-C CHEMISTRY & BLOOD GAS O RDERABLES Final Result [facility] [address] [place] [address] documented in this encounter Visit Diagnoses Not on filedocumented in this encounter Additional Health Concerns Infection Onset Date Last Indicated Resolved Time COVID-19 03/22/2022 03/22/2022 04/11/2022 22:1 5 EDT documented as of this encounter
--- OUTSIDE RECORDS SUMMARY | 2024-10-06 13:52 | XMS_ITS | Encounter Summary ---
Author Organization [facility] Address [address] [place] [address] Care Team Providers Care Buyer Agent Name Role Phone Unavailable Primary Care Provider Unavailabl e Encounter Details Date Type Department Care Team (Late st Contact Info) Description 11/12/2006 8:29 EST Hospital Encounter [facility] - Maple conversion [address] [place] [address] Roxanna Hannah MD [address] [place] [phone] Social History Tobacco Use Types Packs/Day Years [...] learn more about your health please visit: https://www.[facility].org/medcenter/Pages/Wellness-Resources/Gxffcgpmw-Dkngbr-By sourc e-Center.aspx LDL < 100 Result Component Hyperlipidemia 56( 0 12:18 EST) No Maggie Andrade LPN HEMOGLOBIN A1C < 7.0 Result Component Type 2 diabetes mellitus ([facility]) 7.7(12/30/19 20 12:18 EST) No Maggie Andrade LPN documented as of this encounter Procedures Procedure Name Priority Date/Time Associated Diagnosis Comments COMPLETE BLOOD COUNT Routine 11/12/2006 9:22 EST LIPID PROFILE (INCLUDES CHOLESTEROL, TRIGLYCERIDES, HDL, LDL) Routine 11/12/2006 9:22 EST COMPREHENSIVE METABOLIC PANEL (CMP) Routine 11/12/2006 9:22 EST documented in this encounter Results * LIPID PROFILE (INCLUDES CHOLESTEROL, TRIGLYCERIDES, HDL, LDL) (11/12/2006 9:22 EST) Cholesterol 138 mg/dl [facility] Comment: Desirable:<200 Borderline:200-239 High Risk:>xg=428 Triglycerides 92 35 - 160 mg/dl [facility] HDL 29 mg/dl [facility] Comment: Highly Desirable:>60 Desirable:35-60 High Risk:<35 LDL, Calculated 91 mg/dl [facility] Comment: Desirable:<130 Borderline:130-159 High Risk:>zi=440 Chol/HDL Ratio 4.8 [facility] Fasting? Yes [facility] 11/12/2006 9:22 EST 11/12/2006 11:39 EST Roxanna Hannah MD CHEMISTRY & BLOOD GAS OR DERABLES Final Result [facility] [address] [place] [address] * COMPREHENSIVE METABOLIC PANEL (11/12/2006 9:22 EST) Potassium 4.4 3.5 - 5.0 mEq/L [facility] Sodium 142 136 - 145 mEq/L [facility] Chloride 103 96 - 110 mEq/L [facility] CO2 29 24 - 32 mEq/L [facility] Total Alkaline Phosphatase 69 38 - 126 U/L [facility] Bilirubin, Total <0.5 0.2 - 1.3 mg/dl [facility] AST 32 15 - 46 U/L [facility] ALT 46 21 - 72 U/L [facility] Albumin 4.1 3.4 - 4.9 g/dl [facility] Total Protein 7.2 6.5 - 8.3 g/dl [facility] Creatinine 0.96 0.7 - 1.5 mg/dl [facility] GFR, Calculated >60 ml/min/1.7 3m2 [facility] BUN 15 10 - 26 mg/dl [facility] Calcium 9.2 8.5 - 10.5 mg/dl [facility] Calculated Calcium 9.5 8.5 - 10.5 mg/dl [facility] Glucose, Serum 99 70 - 100 mg/dl [facility] Fasting? Yes [facility] Albumin/Globulin Ratio 1.3 [facility] 11/12/2006 9:22 EST 11/12/2006 11:39 EST Roxanna Hannah MD CHEMISTRY & BLOOD GAS OR DERABLES Final Result Performing Organization Address City/[facility]/ZIP Co de Phone Number [facility] [address] [place] [address] * HEMAGRAM (11/12/2006 9:22 EST) WBC 6.56 4.0 - 10.4 K/cmm [facility] RBC 5.13 4.36 - 5.78 M/cmm [facility] Hemoglobin 16.4 13.8 - 17.3 gm/dl [facility] HCT 48.1 39.5 - 50.2 % [facility] MCV 94 81 - 95 fl [facility] MCH 32.0 27.6 - 33.0 pg [facility] MCHC 34.1 32.8 - 36.4 gm/dl [facility] PLT 200 141 - 320 K/cmm [facility] RDW-CV 13.8 11.8 - 14.1 % [facility] 11/12/2006 9:22 EST 11/12/2006 11:39 EST us Roxanna Hannah MD HEMATOLOGY & PF4 ORDERAB LES Final Result Performing Organization Address [facility] [place] [facility] Co de Phone Number [facility] [address] [place] [address] documented in this encounter Visit Diagnoses Not on filedocumented in this encounter Additional Health Concerns Infection Onset Date Last Indicated Resolved Time COVID-19 03/22/2022 03/22/2022 04/11/2022 22:1 5 EDT documented as of this encounter
--- OUTSIDE RECORDS SUMMARY | 2024-10-06 13:52 | XMS_ITS | Encounter Summary ---
Author Organization [facility] Address [address] [place] [address] Care Team Providers Care Applications Sales Consultant Name Role Phone Roxanna Hannah MD Primary Care Provider + Encounter Details Date Type Department Care Team (Late st Contact Info) Description 02/24/2009 Before PRISM Converted Visit (Maple) [facility] Family Medicine [address] [address] Roxanna Hannah MD [address] [place] [phone] Social History Tobacco Use Types Packs/Day Years [...] Procedure Name Priority Date/Time Associated Diagnosis Comments TESTS ADDED BY PHONE Routine 02/24/2009 9:50 EDT documented in this encounter Results * TESTS ADDED BY PHONE (02/24/2009 9:50 EDT) Tests to be added [facility] Who Called DR [facility] Location Code UV [facility] Read Back/Confirmed ? YES [facility] 02/24/2009 9:50 EDT 02/24/2009 9:52 EDT us Roxanna Hannah MD CHEMISTRY & BLOOD GAS OR DERABLES Final Result Performing Organization Address City/State/[facility] Co de Phone Number [facility] [address] [place] [address] documented in this encounter Visit Diagnoses Not on filedocumented in this encounter Care Teams Applications Sales Consultant Relationship Specialty Start Date End Date Roxanna Hannah MD [address] [place] [phone] PCP - General 03/28/09 05/31/20 documented as of this encounter
--- OUTSIDE RECORDS SUMMARY | 2024-10-06 13:52 | XMS_ITS | Encounter Summary ---
Author Organization [facility] Address [address] [place] [address] Care Team Providers Care Coal Mill Operator Name Role Phone Roxanna Hannah MD Primary Care Provider + Encounter Details Date Type Department Care Team (Late st Contact Info) Description 04/27/2007 Results Only [facility] - [place] conversion [address] [place] [address] Emergency, MD Karyn Social History Tobacco Use Types Packs/Day Years [...] Procedure Name Priority Date/Time Associated Diagnosis Comments PROFILE ED CARDIAC PACK Routine 04/27/2007 19:16 EDT documented in this encounter Results * (ABNORMAL) PROFILE ED CARDIAC PACK (04/27/2007 19:16 EDT) BUN 19 10 - 26 mg/dl [facility] WBC 7.41 4.0 - 10.4 K/cmm [facility] RBC 5.13 4.36 - 5.78 M/cmm [facility] Hemoglobin 16.2 13.8 - 17.3 gm/dl [facility] HCT 48.4 39.5 - 50.2 % [facility] MCV 94 81 - 95 fl [facility] MCH 31.5 27.6 - 33.0 pg [facility] MCHC 33.5 32.8 - 36.4 gm/dl [facility] PLT 188 141 - 320 K/cmm [facility] RDW-CV 14.7(H) 11.8 - 14.1 % [facility] CK 223 0 - 250 U/L [facility] MB 1.6 0 - 5.0 ng/ml [facility] CK-MB Index Not calculated, normal MB. 0 - 2.5 [facility] Creatinine 1.10 0.7 - 1.5 mg/dl [facility] GFR, Calculated >60 ml/min/1. 73m2 [facility] % Neutrophils 41.8(L) 45.5 - 79.7 % [facility] % Lymphocytes 48.5(H) 15.0 - 46.8 % [facility] % Monocytes 7.7 1.8 - 12.0 % [facility] % Eosinophils 1.7 0.6 - 6.9 % [facility] % Basophils 0.3 0.2 - 1.4 % [facility] ABS Neutrophils 3.09 2.20 - 8.85 K/cmm [facility] ABS Lymphs 3.60(H) 1.09 - 3.30 K/cmm [facility] ABS Monocytes 0.57 0.1 - 0.8 K/cmm [facility] ABS Eosinophils 0.12 0.03 - 0.61 K/cmm [facility] ABS Basophils 0.02 0.01 - 0.11 K/cmm [facility] Type of Diff: Automated [facility] Sodium 143 136 - 145 mEq/L [facility] Potassium 3.5 3.5 - 5.0 mEq/L [facility] Chloride 100 96 - 110 mEq/L [facility] CO2 31 24 - 32 mEq/L [facility] Magnesium 1.8 1.7 - 2.8 mg/dl [facility] Pro Time 14.1 12.0 - 15.0 secs [facility] I.N.R. 1.1 0.9 - 1.1 Ratio [facility] Comment: Moderate Intensity Coumadin INR = 2.0-3.0 Adjustments in anticoagulant therapy dose should be based upon the INR and NOT the Pro Time. PTT 28 20 - 35 secs [facility] Comment:Therapeutic Heparin range: 60-100 seconds Troponin I pre 2011 <0.05 ng/ml [facility] Comment: Note new reference range. Reference Range: Normal: ??Less than 0.05 Indeterminate: ??0.05-0.80 Positive: ??Greater than 0.80 04/27/2007 19:1 6 EDT 04/27/2007 19:32 EDT us Default Emergency MD PACKAGES & DNA PROBE ORDERA BLES Final Result [facility] [address] [place] [address] documented in this encounter Visit Diagnoses Not on filedocumented in this encounter Care Teams Coal Mill Operator Relationship Specialty Start Date End Date Roxanna Hannah MD [address] [place] [phone] PCP - General 03/28/09 05/31/20 documented as of this encounter
--- OUTSIDE RECORDS SUMMARY | 2024-10-06 13:52 | XMS_ITS | Encounter Summary ---
Author Organization [facility] Address [address] [place] [address] Care Team Providers Care Bell Tier Name Role Phone Unavailable Primary Care Provider Unavailabl e Encounter Details Date Type Department Care Team (Latest Contact Info) Description 12/29/2001 20:42 EST Hospital Encounter [facility] - Other [address] [place] [address] Nelda Lewis [place] [address] [address] Unknown, Provider, Discharge Disposition: Auto Discharge Social History Tobacco [...] Destination Auto Discharge documented in this encounter Plan of Treatment Not on file documented as of this encounter Procedures Procedure Name Priority Date/Time Associated Diagnosis Comments GLUCOSE, PLASMA Routine 12/29/2001 20:42 EST VALPROIC ACID LEVEL Routine 12/29/2001 2 0:42 EST LIPID PROFILE (INCLUDES CHOLESTEROL, TRIGLYCERIDES, HDL, LDL) Routine 12/29/2001 20:42 EST documented in this encounter Results * VALPROIC ACID (12/29/2001 20:42 EST) Valproic Acid 58.7 50.0 - 100.0 ug/ml [facility] 12/29/2001 20:4 2 EST 12/29/2001 20:42 EST Nelda Lewis MD CHEMISTRY & BLOOD GAS ORDERABLES Final Result Performing Organization Address [facility] de Phone Number [facility] [address] [place] [address] * LIPID PROFILE (INCLUDES CHOLESTEROL, TRIGLYCERIDES, HDL, LDL) (12/29/2001 20:42 EST) Cholesterol 197 mg/dl [facility] Comment: Desirable:<200 Borderline:200-239 High Risk:>kv=011 Triglycerides 137 35 - 160 mg/dl [facility] HDL 24 mg/dl [facility] Comment: Highly Desirable:>60 Desirable:35-60 High Risk:<35 LDL, Calculated 146 mg/dl [facility] Comment: Desirable:<130 Borderline:130-159 High Risk:>wi=354 Chol/HDL Ratio 8.2 [facility] 12/29/2001 20:4 2 EST 12/29/2001 20:42 EST Nelda Lewis MD CHEMISTRY & BLOOD GAS ORDERABLES Final Result Performing Organization Address [facility] de Phone Number [facility] [address] [place] [address] * GLUCOSE, PLASMA (12/29/2001 20:42 EST) Glucose, Plasma 85 70 - 110 mg/dl [facility] 12/29/2001 20:4 2 EST 12/29/2001 20:42 EST Nelda Lewis MD CHEMISTRY & BLOOD GAS ORDERABLES Final Result Performing Organization Address [facility] Co de Phone Number [facility] [address] [place] [address] documented in this encounter Visit Diagnoses Not on filedocumented in this encounter
--- OUTSIDE RECORDS SUMMARY | 2024-10-06 13:52 | XMS_ITS | Encounter Summary ---
Author Organization [facility] Address [address] [place] [address] Care Team Providers Care Cut Off Sawyer Name Role Phone Unavailable Primary Care Provider Unavailabl e Encounter Details Date Type Department Care Team (Late st Contact Info) Description 03/21/2007 9:50 EDT Hospital Encounter [facility] - [place] conversion [address] [place] [address] Roxanna Hannah MD [address] [place] [phone] Social History Tobacco Use Types Packs/Day Years [...] about your health please visit: https://[facility].org/medcenter/Pages/Wellness-Resources/Vcpirxavl-Laymcg-Ru sourc e-Center.aspx LDL < 100 Result Component Hyperlipidemia 56( 0 12:18 EST) No Maggie Andrade LPN HEMOGLOBIN A1C < 7.0 Result Component Type 2 diabetes mellitus ([facility]) 7.7(12/30/19 20 12:18 EST) No Maggie Andrade LPN documented as of this encounter Visit Diagnoses Not on filedocumented in this encounter Additional Health Concerns Infection Onset Date Last Indicated Resolved Time COVID-19 03/22/2022 03/22/2022 04/11/2022 22:1 5 EDT documented as of this encounter"
--- OUTSIDE RECORDS SUMMARY | 2024-10-06 13:52 | XMS_ITS | Encounter Summary ---
Author Organization [facility] Address [address] [place] [address] Care Team Providers Care Staff Forester Name Role Phone Unavailable Primary Care Provider Unavailabl e Encounter Details Date Type Department Care Team (Late st Contact Info) Description 03/19/2006 14:31 EDT Hospital Encounter [facility] - Maple conversion [address] [place] [address] Roxanna Hannah MD [address] [place] [phone] Social History Tobacco Use Types Packs/Day Years [...] learn more about your health please visit: https://[facility].org/medcenter/Pages/Wellness-Resources/Xivajitjk-Hujyna-Ah sourc e-Center.aspx LDL < 100 Result Component Hyperlipidemia 56( 0 12:18 EST) No Maggie Andrade LPN HEMOGLOBIN A1C < 7.0 Result Component Type 2 diabetes mellitus ([facility]) 7.7(12/30/19 20 12:18 EST) No Maggie Andrade LPN documented as of this encounter Visit Diagnoses Not on filedocumented in this encounter Additional Health Concerns Infection Onset Date Last Indicated Resolved Time COVID-19 03/22/2022 03/22/2022 04/11/2022 22:1 5 EDT documented as of this encounter
--- OUTSIDE RECORDS SUMMARY | 2024-10-06 13:52 | XMS_ITS | Encounter Summary ---
Author Organization [facility] Address [address] [place] [address] Care Team Providers Care Pediatric Critical Care Nurse Name Role Phone Unavailable Primary Care Provider Unavailabl e Encounter Details Date Type Department Care Team (Late st Contact Info) Description 08/14/1999 0:29 EDT Hospital Encounter [facility] Emergency Department - [facility] [address] [place] [address] Emergency, MD Karyn Social History Tobacco Use [...] more about your health please visit: https://www.[facility].org/medcenter/Pages/Wellness-Resources/Vvypnjhed-Aaoioa-Tn sourc e-Center.aspx LDL < 100 Result Component Hyperlipidemia 56( 0 12:18 EST) No Maggie Andrade LPN HEMOGLOBIN A1C < 7.0 Result Component Type 2 diabetes mellitus ([facility]) 7.7(12/30/19 20 12:18 EST) No Maggie Andrade LPN documented as of this encounter Visit Diagnoses Not on filedocumented in this encounter Additional Health Concerns Infection Onset Date Last Indicated Resolved Time COVID-19 03/22/2022 03/22/2022 04/11/2022 22:1 5 EDT documented as of this encounter
--- OUTSIDE RECORDS SUMMARY | 2024-10-06 13:52 | XMS_ITS | Encounter Summary ---
Author Organization [facility] Address [address] [place] [address] Care Team Providers Care Brickmason Name Role Phone Roxanna Hannah MD Primary Care Provider + Encounter Details Date Type Department Care Team (Late st Contact Info) Description 02/24/2009 Before PRISM Converted Visit (Maple) [facility] Family Medicine [address] [id number] Roxanna Hannah MD [address] [place] [phone] Social History Tobacco Use Types Packs/Day [...] Diagnosis Comments COMPREHENSIVE METABOLIC PANEL (CMP) Routine 02/24/2009 9:50 EDT documented in this encounter Results * (ABNORMAL) COMPREHENSIVE METABOLIC PANEL (02/24/2009 9:50 EDT) Potassium 3.9 3.5 - 5.0 mEq/L [facility] Sodium 142 136 - 145 mEq/L [facility] Chloride 102 96 - 110 mEq/L [facility] CO2 30 24 - 32 mEq/L [facility] Alkaline Phosphatase 73 38 - 126 U/L [facility] Bilirubin, Total <0.5 0.2 - 1.3 mg/dl [facility] AST 29 15 - 46 U/L [facility] ALT 38 21 - 72 U/L [facility] Albumin 4.0 3.4 - 4.9 g/dl [facility] Total Protein 6.8 6.5 - 8.3 g/dl [facility] Creatinine 0.86 0.7 - 1.5 mg/dl [facility] GFR, Calculated >60 ml/min/1.7 3m2 [facility] BUN 17 10 - 26 mg/dl [facility] Calcium 8.5 8.5 - 10.5 mg/dl [facility] Calculated Calcium 8.9 8.5 - 10.5 mg/dl [facility] Glucose, Serum 157(H) 70 - 100 mg/dl [facility] Fasting? Yes [facility] 02/24/2009 9:50 EDT 02/24/2009 9:52 EDT us Roxanna Hannah MD CHEMISTRY & BLOOD GAS OR DERABLES Final Result [facility] [address] [place] [address] documented in this encounter Visit Diagnoses Not on filedocumented in this encounter Care Teams Brickmason Relationship Specialty Start Date End Date Roxanna Hannah MD [address] [place] [phone] PCP - General 03/28/09 05/31/20 documented as of this encounter
--- OUTSIDE RECORDS SUMMARY | 2024-10-06 13:52 | XMS_ITS | Encounter Summary ---
Author Organization [facility] Address [address] [place] [address] Care Team Providers Care Engine Dynamometer Tester Name Role Phone Roxanna Hannah MD Primary Care Provider + Encounter Details Date Type Department Care Team (Late st Contact Info) Description 04/28/2007 Before PRISM Converted Visit (Maple) [facility] - Maple conversion [address] [place] [address] Edi Florian MD [address] [place] [address] [place] [phone] Social History Tobacco Use Types Packs/Day Years Used Date Smoking Tobacco: Never Assessed Sex and Gender Information Value Date Recorded Sex Assigned at Not on file Legal Sex Male 18:06 EST Gender Identity Male 12/31/2019 13:46 EST Sexual Orientation Not on file documented as of this encounter Discharge Summaries * Edi Florian MD - 02/18/2011 0954 EDT DISCHARGE SUMMARY Admission Date: 04/27/2007 Discharge Date: 04/28/2007 April 28, 2007 Roxanna Hannah MD [address] [place] [address] DISCHARGE DIAGNOSIS Nonanginal chest pain. OTHER MEDICAL CONDITIONS AT DISCHARGE 1. Seizure disorder. 2. Hypertension. 3. Hyperlipidemia. 4. Status post cholecystectomy. 5. Drug intolerance to Tegretol. DISCHARGE MEDICATIONS Same as the admit medications and include: 1. Depakote extended release 1500 mg daily. 2. Lipitor 20 mg daily. 3. Prilosec 20 mg daily. 4. Hydrochlorothiazide 25 mg daily. PROCEDURES PERFORMED DURING HOSPITALIZATION Exercise stress test. The patient exercised for just over 9 minutes of a standard Scotty protocol. His maximally achieved heart rate was 151 beats per minute. This was 88% of his predicted maximum. Hestopped exercising because of fatigue. There was no exercise-induced chest pain. There were no ST segment shifts during exercise. There was an appropriate heart rate and blood pressure response to exercise. There was no exercise-induced ectopy. Dear Alva, I had the pleasure of taking care of your patient, Mr. Mario Curry, who was hospitalized at [facility] during the above dates. As you know, he is a very pleasant [employer] employee without prior cardiac problems. He does have two major risk factors; namely, hyperlipidemia and hypertension. Mr. Curry was at work at [employer] when he developed fairly abrupt right-sided chest discomfort. This then evolved into more of a central sternal chest heaviness. The medical team was notified andthe patient was brought by ambulance to [facility]. Mr. Bermudez examination was nonfocal. The presenting electrocardiogram showed nonspecific ST-T wave changes. The patient ruled out for myocardial infarction by enzymes. An exercise stress test was done on the following morning and was unremarkable. Given this unremarkable stress test, I think it is less likely that the patient's symptoms are related to myocardial ischemia. I sent him home on the same medications as he was admitted upon. The patient did have a lipid panel done. The lipid panel showed a total cholesterol of 127, triglycerides 107, HDL 28, LDL 78. I have asked Mr. Curry to come see me in the office for an echocardiogram because of his historyof hypertension. If significant LVH is noted on the echo, then I would recommend adding an ROZINA inhibitor to his antihypertensive regimen. Thanks again for allowing me to participate in his care. Sincerely yours, Signed by Edi Florian MD 05/01/2007 17:19 Keshav Messina MD Edi Florian MD - MD Anival A - sb Job ID: [id number] Document ID: [id number] cc: MD Edi Sanders MD documented in this encounter Plan of Treatment Not on file documented as of this encounter Visit Diagnoses Not on filedocumented in this encounter Care Teams Engine Dynamometer Tester Relationship Specialty Start Date End Date Roxanna Hannah MD [address] [place] [phone] PCP - General 03/28/09 05/31/20 documented as of this encounter
--- OUTSIDE RECORDS SUMMARY | 2024-10-06 13:52 | XMS_ITS | Encounter Summary ---
Author Organization [facility] Address [address] [place] [address] Care Team Providers Care Hairspring Adjuster Name Role Phone Roxanna Hannah MD Primary Care Provider + Encounter Details Date Type Department Care Team (Late st Contact Info) Description 04/27/2007 Before PRISM Converted Visit (Maple) [facility] - Maple conversion [address] [place] [address] Edi Florian MD [address] [place] [address] [place] [phone] Social History Tobacco Use Types Packs/Day Years Used Date Smoking Tobacco: Never Assessed Sex and Gender Information Value Date Recorded Sex Assigned at Not on file Legal Sex Male 18:06 EST Gender Identity Male 12/31/2019 13:46 EST Sexual Orientation Not on file documented as of this encounter H&P Notes * Edi Florian MD - 02/10/2011 1910 EDT HISTORY AND PHYSICAL EXAMINATION ADMIT DATE: 04/27/2007 This is the only recent [facility] hospitalization for Mr. Mario Curry, a verypleasant 51-year-old gentleman who is brought from [facility] with chest pain. PROBLEM LIST 1. Chest pain, please see below. 2. Seizure disorder, treated with Depakote. 3. Hypertension. 4. Hyperlipidemia. 5. Status post cholecystectomy. 6. DRUG INTOLERANCE TO TEGRETOL. HISTORY OF PRESENT ILLNESS Mr. Curry is a very pleasant 51gentleman. Five or six years ago he developed cholecystitis and had a fair amount of nausea, vomiting and chest discomfort. The patient had a cholecystectomy and continued to have ???a weak stomach.?? In particular, he describes episodes of dyspepsia for which he has used Prilosec for several years. The patient was in his usual state of health until today. He was working at [employer]. He reached into a [employer] bin for a tool kit and felt fairly abrupt severe right upper chest pain. This was nonpleuritic. It was not associated with diaphoresis. It did not radiate to the jaw or back. Symptoms lasted for three to five minutes. The patient relayed these symptoms to one of his coworkers. The medical unit from [facility] was summoned to the area, and the patient was brought via ambulance to the ED. Initially, Mr. Bermudez symptoms resolved en route; however by the time he got here, he was left with a somewhat different residual dull chest ache. Again, this discomfort is somewhat dissimilar to his initial sharp chest pain. It is a heaviness/pressure sensation, which is more midsternal. It is not radiating nor is it associated with diaphoresis or shortness of breath. CARDIAC RISK FACTORS Cardiac risk factors are significant for hyperlipidemia and hypertension. The patients family history is unknown to him as he is adopted. MEDICATIONS 1. Depakote 1500 mg of an extended release preparation daily. 2. Lipitor 20 daily. 3. Prilosec 20 mg daily. 4. Hydrochlorothiazide 25 mg daily. ALLERGIES DRUG INTOLERANCES TO TEGRETOL. SOCIAL HISTORY The patient is . 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 He and his have children who are grown. The patient is a nonsmoker and a nondrinker. REVIEW OF SYSTEMS Mr. Curry has had no recent fever, chills, nausea or vomiting. No diarrhea. No anorexia. No new joint pains or skin rashes. Last grand mal seizure was five or six years ago. The patient has had nofocal neurologic deficits. No arthritis problems. No new joint pains or skin rashes. The remainder of the review of systems is negative except as outlined above. PHYSICAL EXAMINATION On physical exam, Mr. Curry is a pleasant gentleman appearing his stated age. His vital signs are a blood pressure of 158/90, the pulse is 75, respiratory rate is 16, and he is afebrile. He is alert and oriented times three. The JVP is not elevated. Carotid upstrokes are brisk without bruits. The lungs are clear to percussion and auscultation. The chest wall had some mild vague-like chest tende rness to palpation, particularly in the right upper chest. Cardiac exam: Normal S1 and S2 without significant murmurs, gallops or rubs. The abdomen is soft, nontender, without palpable organomegaly or bruits. The femoral pulses are full. The distal pulses are full. There is no clubbing, cyanosis oredema noted. STUDIES A 12-lead ECG shows sinus rhythm. There are subtle ST-T wave changes in the anterior precordial leads. There is an abrupt RS transition from V1 to V2. There is a flipped T-wave in V4, V5 and V6. There is a nondiagnostic Q-wave in III and aVF. LABORATORY Normal electrolytes, BUN and creatinine. CK of 223. MB 1.6. Normal troponin. Normal CBC. ASSESSMENT 1. In summary, Mr. Curry has atypical chest discomfort. He has an indeterminate ECG. Given his age, his risk profile and the lack of a normal EKG, he will be admitted to observational status. Assuming the enzymes are negative, he will undergo exercise stress testing first thing in the morning. Anon-imaging stress test will be used. 2. Hypertension: The patient has had a history of hypertension. The patient will have an echo in the outpatient setting to make sure he does not have significant LVH. If LVH by echo criteria is noted, then it might be beneficial to use an ROZINA, which has been associated with LV mass progression. Signed by Edi Florian MD 05/01/2007 17:19 Keshav Messina MD Edi Florian MD - MD Anival A - mt Job ID: [id number] Document ID: [id number] cc: MD Edi Sanders MD documented in this encounter Plan of Treatment Not on file documented as of this encounter Visit Diagnoses Not on filedocumented in this encounter Care Teams Hairspring Adjuster Relationship Specialty Start Date End Date Roxanna Hannah MD [address] [place] [phone] PCP - General 03/28/09 05/31/20 documented as of this encounter
--- OUTSIDE RECORDS SUMMARY | 2024-10-06 13:52 | XMS_ITS | Encounter Summary ---
Author Organization [facility] Address [address] [place] [address] Care Team Providers Care Hotel Housekeeper Name Role Phone Roxanna Hnanah MD Primary Care Provider + Encounter Details Date Type Department Care Team (Late st Contact Info) Description 02/24/2009 Before PRISM Converted Visit (Maple) [facility] Family Medicine [address] [id number] Roxanna Hannah MD [address] [place] [phone] Social History Tobacco Use Types Packs/Day [...] Procedure Name Priority Date/Time Associated Diagnosis Comments LIPID PROFILE (INCLUDES CHOLESTEROL, TRIGLYCERIDES, HDL, LDL) Routine 02/24/2009 9:50 EDT documented in this encounter Results * (ABNORMAL) LIPID PROFILE (02/24/2009 9:50 EDT) Cholesterol 123 mg/dl [facility] Comment: Desirable:<200 Borderline High:200-239 High:>[id number] Triglycerides 191(H) 35 - 160 mg/dl [facility] HDL 27 mg/dl [facility] Comment: Low:<40 High(Desirable):>or=60 LDL, Calculated 58 mg/dl [facility] Comment: Optimal:<100 Above optimal:100-129 Borderline High:130-159 High:160-189 Very High:>ib=357 Chol/HDL Ratio 4.6 [facility] Fasting? Yes [facility] 02/24/2009 9:50 EDT 02/24/2009 9:52 EDT us Roxanna Hannah MD CHEMISTRY & BLOOD GAS OR DERABLES Final Result [facility] [address] [place] [address] documented in this encounter Visit Diagnoses Not on filedocumented in this encounter Care Teams Hotel Housekeeper Relationship Specialty Start Date End Date Roxanna Hannah MD [address] [place] [phone] PCP - General 03/28/09 05/31/20 documented as of this encounter
--- OUTSIDE RECORDS SUMMARY | 2024-10-06 13:52 | XMS_ITS | Encounter Summary ---
Author Organization [facility] Address [address] [place] [address] Care Team Providers Care Manager Servicing Name Role Phone Unavailable Primary Care Provider Unavailabl e Encounter Details Date Type Department Care Team (Latest Contact Info) Description 01/09/2000 15:56 EST Hospital Encounter [facility] - Other [address] [place] [address] Jacklyn Cleaning MD [address] [address] Unknown, Provider, Discharge Disposition: Auto Discharge Social [...] PROFILE (INCLUDES CHOLESTEROL, TRIGLYCERIDES, HDL, LDL) Routine 01/09/2000 10:00 EST documented in this encounter Results * LIPID PROFILE (INCLUDES CHOLESTEROL, TRIGLYCERIDES, HDL, LDL) (01/09/2000 10:00 EST) Cholesterol 182 mg/dl [facility] Comment: Desirable:<200 Borderline:200-239 High Risk:>[id number] Fasting Triglycerides 82 35 - 160 mg/dl [facility] Comment:Fasting HDL 32 mg/dl [facility] Comment: Highly Desirable:>60 Desirable:35-60 High Risk:<35 Fasting LDL, Calculated 134 mg/dl [facility] Comment: Desirable:<130 Borderline:130-159 High Risk:>px=029 Fasting Chol/HDL Ratio 5.7 Fasting [facility] 01/09/2000 10:0 0 EST 01/09/2000 19:41 EST us Jacklyn Cleaning MD CHEMISTRY & BLOOD GAS ORDERABLES Final Result [facility] [address] [place] [address] documented in this encounter Visit Diagnoses Not on filedocumented in this encounter
--- OUTSIDE RECORDS SUMMARY | 2024-10-06 13:52 | XMS_ITS | Encounter Summary ---
Author Organization [facility] Address [address] [place] [address] Care Team Providers Care Food Safety Director Name Role Phone Yanira Romero MD Primary Care Provider + Unknown, Provider Primary Care Provider Unava ilYanira Bourne MD Primary Care Provider + Rebeca Garcia Primary Care Provider + Encounter Details Date Type Department Care Team (Late st Contact Info) Description 04/27/2007 Before PRISM Converted Visit (Maple) [facility] - Maple conversion [address] [place] [address] Edi Florian MD [address] [place] [address] [place] [phone] Social History Tobacco Use Types Packs/Day [...] Procedure Name Priority Date/Time Associated Diagnosis Comments EXERCISE TOLERANCE TEST 04/28/2007 7:25 EDT TROPONIN I Routine 04/28/2007 3:00 EDT TSH Routine 04/28/2007 3:00 EDT CK MB WITH TOTAL CK Routine 04/28/2007 3:00 EDT LIPID PROFILE (INCLUDES CHOLESTEROL, TRIGLYCERIDES, HDL, LDL) Routine 04/28/2007 3:00 EDT documented in this encounter Results * EXERCISE TOLERANCE TEST (04/28/2007 7:25 EDT) Anatomical Region Laterality Modality Other 04/28/2007 7:25 EDT Narrative 04/30/2007 9:57 EDT ? [facility] ? [address] [facility] ??[place] [address] ?[phone] ?Final ECG Stress Test Report ?--- PATIENT PRESENTATION --- : 1955 ? Age: 51 ?Sex: male ? Height: 69 in ??Weight: 235 lb BSA: 2.21 Pt Type: IP History: ??51 yo male No known Hx CAD. ??Admitted 04/27/07 with SSCP while lifting 10lbs.relieved with rest. R/O'd out for NV. Denies pain at this time. Medications: ASA, HCTZ, Lipid lowering agents Cardiovascular Risk Factors: ??Hypercholesterolemia, Hypertension, Obesity Reason for Study: Atypical Chest Pain Referring Physician: EDI FLORIAN MD ??FAX: [phone] ? --- CONCLUSION --- > Normal ECG Stress Test ? --- STRESS ELECTROCARDIOGRAPHY --- BASELINE ECG: T wave Abnormal Supine HR: ? 64 ? Supine BP: ??124 / 84 ??Upright HR: ?79 Upright BP: ?126 / 80 STRESS TEST Stress Protocol: Sx Limited Scotty Peak HR: ??151 ? Peak BP: ?184 / 80 ?MPHR: ??89% Peak Rate-Pressure Product: [id number] Total Exercise Time: 9.2 min ? Final Stage: 4 ?Mets: 10.6 Test Stopped Due To: ??Fatigue Comments: T waves pseudonormalized with exercise. ECG Changes: ?? None Performed By: ??Andressa AUGUSTE, [place]/Lucas AUGUSTE Pre-Test Symptom: ?? Non-anginal chest pain ?Pre-test likelihood of CAD: 18% Post-Test Symptom: ??Asymptomatic ?Post-test likelihood of CAD: ??5% ? --- STRESS SUMMARY --- 1. CHEST PAIN: None ?SHORTNESS OF BREATH: Exercise Induced 2. ECG CHANGES: Negative 3. EXERCISE CAPACITY FOR AGE: ??Average 4. Normal heart rate and ??normal blood pressure response to exercise 5. ARRHYTHMIA: None Stress ECG Interpretation By: ??Romulo Brumfield MD - Attending Crystal Report Developer Finalized on: 04/30/2007 9:57:36 AM Copy Report To: ? NICK DANIELLE,YANIRA Fontaine ?? FAX: [phone] Procedure Note 05/10/2010 [facility] [address] [place] [address] Final ECG Stress Test Report --- PATIENT PRESENTATION --- : 1955 Age: 51 Sex: male Height: 69 in Weight: 235lb BSA: 2.21 Pt Type: IP History: 51 yo male No known Hx CAD. Admitted 04/27/07 with SSCP whilelifting 10lbs.relieved with rest. R/O'd out for NV. Denies pain at this time. Medications: ASA, HCTZ, Lipid lowering agents Cardiovascular Risk Factors: Hypercholesterolemia, Hypertension,Obesity Reason for Study: Atypical Chest Pain Referring Physician: EDI FLORIAN MD FAX: [phone] --- CONCLUSION --- > Normal ECG Stress Test --- STRESS ELECTROCARDIOGRAPHY --- BASELINE ECG: T wave Abnormal Supine HR: 64 Supine BP: 124 / 84 Upright HR: 79 Upright BP: 126 / 80 STRESS TEST Stress Protocol: Sx Limited Scotty Peak HR: 151 Peak BP: 184 / 80 MPHR: 89% Peak Rate-Pressure Product: [id number] Total Exercise Time: 9.2 min Final Stage: 4 Mets: 10.6 Test Stopped Due To: Fatigue Comments: T waves pseudonormalized with exercise. ECG Changes: None Performed By: Enid Crisostomo RN/Lucas AUGUSTE Pre-Test Symptom: Non-anginal chest pain Pre-test likelihood ofCAD: 18% Post-Test Symptom: Asymptomatic Post-test likelihood of CAD: 5% --- STRESS SUMMARY --- 1. CHEST PAIN: None SHORTNESS OF BREATH: Exercise Induced 2. ECG CHANGES: Negative 3. EXERCISE CAPACITY FOR AGE: Average 4. Normal heart rate and normal blood pressure response to exercise 5. ARRHYTHMIA: None Stress ECG Interpretation By: Romulo Brumfield MD - Attending Crystal Report Developer Finalized on: 04/30/2007 9:57:36 AM Copy Report To: YANIRA ROMERO MD FAX: [phone] [place] Provider [id number] CARDIAC SERVICE S ORDERABLES Final Result * TSH (04/28/2007 3:00 EDT) Pathologist [facility] TSH 3.39 0.35 - 5.00 uIU/mL [facility] 04/28/2007 3:00 EDT 04/28/2007 3:20 EDT Edi Florian MD CHEMISTRY & BLOOD GAS ORDERABLE S Final Result Performing Organization Address [facility] de Phone Number [facility] [address] [place] [address] * TROPONIN I (04/28/2007 3:00 EDT) Pathologist [facility] Troponin I pre 2012 <0.05 ng/ml [facility] Comment: Note new reference range. Reference Range: Normal: ??Less than 0.05 Indeterminate: ??0.05-0.80 Positive: ??Greater than 0.80 04/28/2007 3:00 EDT 04/28/2007 3:20 EDT Edi Florian MD CHEMISTRY & BLOOD GAS ORDERABLE S Final Result Performing Organization Address [facility] de Phone Number [facility] [address] [place] [address] * LIPID PROFILE (INCLUDES CHOLESTEROL, TRIGLYCERIDES, HDL, LDL) (04/28/2007 3:00 EDT) Cholesterol 127 mg/dl [facility] Comment: Desirable:<200 Borderline:200-239 High Risk:>[id number] Triglycerides 107 35 - 160 mg/dl [facility] HDL 28 mg/dl [facility] Comment: Highly Desirable:>60 Desirable:35-60 High Risk:<35 LDL, Calculated 78 mg/dl [facility] Comment: Desirable:<130 Borderline:130-159 High Risk:>qc=471 Chol/HDL Ratio 4.5 [facility] Fasting? Unknown [facility] 04/28/2007 3:00 EDT 04/28/2007 3:20 EDT Edi Florian MD CHEMISTRY & BLOOD GAS ORDERABLE S Final Result Performing Organization Address [facility] de Phone Number [facility] [address] [place] [address] * CK MB WITH TOTAL CK (04/28/2007 3:00 EDT) CK 152 0 - 250 U/L [facility] MB 0.9 0 - 5.0 ng/ml [facility] CK-MB Index Not calculated , normal MB. 0 - 2.5 [facility] 04/28/2007 3:00 EDT 04/28/2007 3:20 EDT Edi Florian MD CHEMISTRY & BLOOD GAS ORDERABLE S Final Result Performing Organization Address [facility] de Phone Number [facility] [address] [place] [address] documented in this encounter Visit Diagnoses Not on filedocumented in this encounter Additional Health Concerns Infection Onset Date Last Indicated Resolved Time COVID-19 03/22/2022 03/22/2022 04/11/2022 22:1 5 EDT documented as of this encounter Care Teams Food Safety Director Relationship Specialty Start Date End Date Yanira Romero MD [address] [place] [phone] PCP - General 03/28/09 05/31/20 Unknown, MD Per [address] [place] [phone] PCP - General 06/01/20 09/11/20 Yanira Romero MD [address] [place] [phone] PCP - General Family Medicine - Primary Care 09/12/20 12/08/20 Rebeca Garcia PA [address] [place] [phone] PCP - General 11/25/21 documented as of this encounter
--- OUTSIDE RECORDS SUMMARY | 2024-10-06 13:52 | XMS_ITS | Encounter Summary ---
Author Organization [facility] Address [address] [place] [address] Care Team Providers Care Basketball Assembler Name Role Phone Roxanna Hannah MD Primary Care Provider + Encounter Details Date Type Department Care Team (Late st Contact Info) Description 10/24/2004 Results Only [facility] Family Medicine - [address] [address] Roxanna Hannah MD [address] [place] [phone] Social History Tobacco Use Types Packs/Day Years [...] Associated Diagnosis Comments COMPLETE BLOOD COUNT Routine 10/24/2004 9:14 EST VALPROIC ACID LEVEL Routine 10/24/2004 9 :14 EST LIPID PROFILE (INCLUDES CHOLESTEROL, TRIGLYCERIDES, HDL, LDL) Routine 10/24/2004 9:14 EST COMPREHENSIVE METABOLIC PANEL (CMP) Routine 10/24/2004 9:14 EST documented in this encounter Results * VALPROIC ACID LEVEL (10/24/2004 9:14 EST) Valproic Acid 81.6 50.0 - 100.0 ug/ml [facility] 10/24/2004 9:14 EST 10/24/2004 11:23 EST Roxanna Hannah MD CHEMISTRY & BLOOD GAS OR DERABLES Final Result Performing Organization Address [facility] de Phone Number [facility] [address] [place] [address] * LIPID PROFILE (INCLUDES CHOLESTEROL, TRIGLYCERIDES, HDL, LDL) (10/24/2004 9:14 EST) Cholesterol 203 mg/dl [facility] Comment: Desirable:<200 Borderline:200-239 High Risk:>vy=856 Triglycerides 120 35 - 160 mg/dl [facility] HDL 28 mg/dl [facility] Comment: Highly Desirable:>60 Desirable:35-60 High Risk:<35 LDL, Calculated 151 mg/dl [facility] Comment: Desirable:<130 Borderline:130-159 High Risk:>dm=800 Chol/HDL Ratio 7.3 [facility] 10/24/2004 9:14 EST 10/24/2004 11:23 EST Roxanna Hannah MD CHEMISTRY & BLOOD GAS OR DERABLES Final Result Performing Organization Address [facility] de Phone Number [facility] [address] [place] [address] * COMPREHENSIVE METABOLIC PANEL (10/24/2004 9:14 EST) Potassium 4.2 3.5 - 5.0 mEq/L [facility] Sodium 142 136 - 145 mEq/L [facility] Chloride 106 96 - 110 mEq/L [facility] CO2 28 24 - 32 mEq/L [facility] Total Alkaline Phosphatase 74 38 - 126 U/L [facility] Bilirubin, Total 0.7 0.2 - 1.3 mg/dl [facility] AST 26 15 - 46 U/L [facility] ALT 37 21 - 72 U/L [facility] Albumin 4.1 3.4 - 4.9 g/dl [facility] Total Protein 7.2 6.5 - 8.0 g/dl [facility] Creatinine 1.0 0.7 - 1.5 mg/dl [facility] BUN 15 10 - 26 mg/dl [facility] Calcium 8.7 8.5 - 10.5 mg/dl [facility] Calculated Calcium 9.0 8.5 - 10.5 mg/dl [facility] Glucose, Serum 93 70 - 110 mg/dl [facility] Albumin/Globulin Ratio 1.3 [facility] 10/24/2004 9:14 EST 10/24/2004 11:23 EST Roxanna Hannah MD CHEMISTRY & BLOOD GAS OR DERABLES Final Result Performing Organization Address [facility] Co de Phone Number [facility] [address] [place] [address] * HEMAGRAM (10/24/2004 9:14 EST) WBC 7.87 4.0 - 10.4 K/cmm [facility] RBC 5.04 4.36 - 5.78 M/cmm [facility] Hemoglobin 16.4 13.8 - 17.3 gm/dl [facility] HCT 47.5 39.5 - 50.2 % [facility] MCV 94 81 - 95 fl [facility] MCH 32.5 27.6 - 33.0 pg [facility] MCHC 34.5 32.8 - 36.4 gm/dl [facility] PLT 209 141 - 320 K/cmm [facility] RDW-CV 13.5 11.8 - 14.1 % [facility] 10/24/2004 9:14 EST 10/24/2004 11:23 EST Roxanna Hannah MD HEMATOLOGY & PF4 ORDERAB LES Final Result Performing Organization Address City/[facility]/ZIP Co de Phone Number [facility] [address] [place] [address] documented in this encounter Visit Diagnoses Not on filedocumented in this encounter Care Teams Basketball Assembler Relationship Specialty Start Date End Date Roxanna Hannah MD [address] [place] [phone] PCP - General 03/28/09 05/31/20 documented as of this encounter
--- OUTSIDE RECORDS SUMMARY | 2024-10-06 13:52 | XMS_ITS | Encounter Summary ---
Author Organization [facility] Address [address] [place] [address] Care Team Providers Care Fountain Jerk Name Role Phone Unavailable Primary Care Provider Unavailabl e Encounter Details Date Type Department Care Team (Late st Contact Info) Description 06/09/2007 13:03 EDT Hospital Encounter [facility] - Maple conversion [address] [place] [address] Roxanna Hannah MD [address] [place] [phone] Social History Tobacco Use Types Packs/Day Years [...] learn more about your health please visit: https://www.[facility].org/medcenter/Pages/Wellness-Resources/Qcaophzxn-Mbxmle-Qh sourc e-Center.aspx LDL < 100 Result Component Hyperlipidemia 56( 0 12:18 EST) No Maggie Andrade LPN HEMOGLOBIN A1C < 7.0 Result Component Type 2 diabetes mellitus ([facility]) 7.7(12/30/19 20 12:18 EST) No Maggie Andrade LPN documented as of this encounter Visit Diagnoses Not on filedocumented in this encounter Additional Health Concerns Infection Onset Date Last Indicated Resolved Time COVID-19 03/22/2022 03/22/2022 04/11/2022 22:1 5 EDT documented as of this encounter
--- OUTSIDE RECORDS SUMMARY | 2024-10-06 13:52 | XMS_ITS | Encounter Summary ---
Author Organization [facility] Address [address] [place] [address] Care Team Providers Care Ramp Boss Name Role Phone Unavailable Primary Care Provider Unavailabl e Encounter Details Date Type Department Care Team (Latest Contact Info) Description 10/24/2004 11:45 EST - 10/24/2004 11:59 EST Hospital Encounter [facility] - Other [address] [place] [address] Roxanna Hannah MD [address] [place] [phone] Discharge Disposition: Auto Discharge Social History Tobacco [...]
--- OUTSIDE RECORDS SUMMARY | 2024-10-06 13:52 | XMS_ITS | Encounter Summary ---
Author Organization [facility] Address [address] [place] [address] Care Team Providers Care Chinese Teacher Name Role Phone Unavailable Primary Care Provider Unavailabl e Encounter Details Date Type Department Care Team (Late st Contact Info) Description 04/15/2001 14:12 EDT Hospital Encounter [facility] - Other [address] [place] [address] Bozena Arias MD [address] [place] [address] Unknown, Provider, Discharge Disposition: Auto Discharge Social [...] Associated Diagnosis Comments VALPROIC ACID LEVEL Routine 04/15/2001 9:30 EDT documented in this encounter Results * VALPROIC ACID (04/15/2001 9:30 EDT) Valproic Acid 66.0 50.0 - 100.0 ug/ml [facility] 04/15/2001 9:30 EDT 04/15/2001 21:12 EDT us Bozena Arias MD CHEMISTRY & BLOOD GAS ORDERABLES Final Result [facility] [address] [address] documented in this encounter Visit Diagnoses Not on filedocumented in this encounter
--- OUTSIDE RECORDS SUMMARY | 2024-10-06 13:52 | XMS_ITS | Encounter Summary ---
Author Organization [facility] Address [address] [place] [address] Care Team Providers Care Cloth Spreader Screen Printing Name Role Phone Unavailable Primary Care Provider Unavailabl e Encounter Details Date Type Department Care Team (Latest Contact Info) Description 01/18/2001 12:05 EST Hospital Encounter [facility] Emergency Department - [facility] [address] [place] [address] Emergency, Default, MD Discharge Disposition: Home or Self Care [...] Associated Diagnosis Comments VALPROIC ACID LEVEL Routine 01/18/2001 1 3:02 EST documented in this encounter Results * (ABNORMAL) VALPROIC ACID (01/18/2001 13:02 EST) Valproic Acid 23.3(L) 50.0 - 100.0 ug/ml [facility] 01/18/2001 13:0 2 EST 01/18/2001 13:02 EST us Default Emergency MD CHEMISTRY & BLOOD GAS ORDER TSERING Final Result [facility] [address] [place] [address] documented in this encounter Visit Diagnoses Not on filedocumented in this encounter
--- OUTSIDE RECORDS SUMMARY | 2024-10-06 13:52 | XMS_ITS | Encounter Summary ---
Author Organization [facility] Address [address] [place] [address] Care Team Providers Care Proced Tech Name Role Phone Unavailable Primary Care Provider Unavailabl e Encounter Details Date Type Department Care Team (Late st Contact Info) Description 11/12/2008 9:14 EST Hospital Encounter [facility] - Maple conversion [address] [place] [address] Pradeep Valente MD Social History Tobacco Use Types Packs/Day Years [...] about your health please visit: https://www.[facility].org/medcenter/Pages/Wellness-Resources/Ibillijla-Lmhaow-Mr sourc e-Center.aspx LDL < 100 Result Component Hyperlipidemia 56( 0 12:18 EST) No Maggie Andrade, ALE HEMOGLOBIN A1C < 7.0 Result Component Type 2 diabetes mellitus ([facility]) 7.7(12/30/19 20 12:18 EST) No Maggie Andrade, ALE documented as of this encounter Procedures Procedure Name Priority Date/Time Associated Diagnosis Comments LIPID PROFILE (INCLUDES CHOLESTEROL, TRIGLYCERIDES, HDL, LDL) Routine 11/12/2008 9:22 EST documented in this encounter Results * LIPID PROFILE (11/12/2008 9:22 EST) Cholesterol 154 mg/dl [facility] Comment: Desirable:<200 Borderline High:200-239 High:>tf=399 Triglycerides 112 35 - 160 mg/dl [facility] HDL 29 mg/dl [facility] Comment: Low:<40 High(Desirable):>or=60 LDL, Calculated 103 mg/dl [facility] Comment: Optimal:<100 Above optimal:100-129 Borderline High:130-159 High:160-189 Very High:>hn=813 Chol/HDL Ratio 5.3 [facility] Fasting? Yes [facility] 11/12/2008 9:22 EST 11/12/2008 13:27 EST Delbert William MD CHEMISTRY & BLOOD GAS ORDERA BLES Final Result [facility] [address] [place] [address] documented in this encounter Visit Diagnoses Not on filedocumented in this encounter Additional Health Concerns Infection Onset Date Last Indicated Resolved Time COVID-19 03/22/2022 03/22/2022 04/11/2022 22:1 5 EDT documented as of this encounter
--- OUTSIDE RECORDS SUMMARY | 2024-10-06 13:52 | XMS_ITS | Encounter Summary ---
Author Organization [facility] Address [address] [place] [address] Care Team Providers Care Millwright Supervisor Name Role Phone Unavailable Primary Care Provider Unavailabl e Encounter Details Date Type Department Care Team (Late st Contact Info) Description 02/24/2009 9:42 EDT Hospital Encounter [facility] - Maple conversion [address] [place] [address] Roxanna Hannah MD [address] [place] [phone] Social History Tobacco Use Types Packs/Day Years [...] more about your health please visit: https://www.[facility].org/medcenter/Pages/Wellness-Resources/Hydfsxabt-Qieatk-Wg sourc e-Center.aspx LDL < 100 Result Component Hyperlipidemia 56( 0 12:18 EST) No Maggie Andrade LPN HEMOGLOBIN A1C < 7.0 Result Component Type 2 diabetes mellitus ([facility]) 7.7(12/30/19 20 12:18 EST) No Maggie Andrade LPN documented as of this encounter Visit Diagnoses Not on filedocumented in this encounter Additional Health Concerns Infection Onset Date Last Indicated Resolved Time COVID-19 03/22/2022 03/22/2022 04/11/2022 22:1 5 EDT documented as of this encounter
--- OUTSIDE RECORDS SUMMARY | 2024-10-06 13:52 | XMS_ITS | Encounter Summary ---
Author Organization [facility] Address [address] [place] [address] Care Team Providers Care Rubber Mixer Name Role Phone Unavailable Primary Care Provider Unavailabl e Encounter Details Date Type Department Care Team (Late st Contact Info) Description 03/12/2006 9:07 EDT Hospital Encounter [facility] [address] [place] [address] Roxanna Hannah MD [address] [place] [phone] Social History Tobacco Use Types Packs/Day Years [...] learn more about your health please visit: https://www.[facility].org/medcenter/Pages/Wellness-Resources/Bcvflrmvp-Eprnpd-Fd sourc e-Center.aspx LDL < 100 Result Component Hyperlipidemia 56( 0 12:18 EST) No Maggie Andrade LPN HEMOGLOBIN A1C < 7.0 Result Component Type 2 diabetes mellitus ([facility]) 7.7(12/30/19 20 12:18 EST) No Maggie Andrade LPN documented as of this encounter Procedures Procedure Name Priority Date/Time Associated Diagnosis Comments VALPROIC ACID LEVEL Routine 03/12/2006 9 :18 EDT LIPID PROFILE (INCLUDES CHOLESTEROL, TRIGLYCERIDES, HDL, LDL) Routine 03/12/2006 9:18 EDT COMPREHENSIVE METABOLIC PANEL (CMP) Routine 03/12/2006 9:18 EDT documented in this encounter Results * VALPROIC ACID (03/12/2006 9:18 EDT) Valproic Acid 64.5 50.0 - 100.0 ug/ml [facility] 03/12/2006 9:18 EDT 03/12/2006 9:20 EDT us Roxanna Hannah MD CHEMISTRY & BLOOD GAS OR DERABLES Final Result Performing Organization Address [facility] Co de Phone Number [facility] [address] [place] [address] * (ABNORMAL) LIPID PROFILE (INCLUDES CHOLESTEROL, TRIGLYCERIDES, HDL, LDL) (03/12/2006 9:18 EDT) Cholesterol 206 mg/dl [facility] Comment: Desirable:<200 Borderline:200-239 High Risk:>wz=138 Triglycerides 179(H) 35 - 160 mg/dl [facility] HDL 27 mg/dl [facility] Comment: Highly Desirable:>60 Desirable:35-60 High Risk:<35 LDL, Calculated 143 mg/dl [facility] Comment: Desirable:<130 Borderline:130-159 High Risk:>rx=316 Chol/HDL Ratio 7.6 [facility] Fasting? Yes Performed at [facility], [place], [place] [facility] 03/12/2006 9:18 EDT 03/12/2006 9:20 EDT us Roxanna Hannah MD CHEMISTRY & BLOOD GAS OR DERABLES Final Result Performing Organization Address [facility] de Phone Number [facility] [address] [place] [address] * COMPREHENSIVE METABOLIC PANEL (03/12/2006 9:18 EDT) Potassium 4.8 3.5 - 5.0 mEq/L [facility] Sodium 144 136 - 145 mEq/L [facility] Chloride 103 96 - 110 mEq/L [facility] CO2 30 24 - 32 mEq/L [facility] Total Alkaline Phosphatase 67 38 - 126 U/L [facility] Bilirubin, Total 0.9 0.2 - 1.3 mg/dl [facility] AST 29 15 - 46 U/L [facility] ALT 45 21 - 72 U/L [facility] Albumin 4.1 3.4 - 4.9 g/dl [facility] Total Protein 7.2 6.5 - 8.3 g/dl [facility] Creatinine 1.0 0.7 - 1.5 mg/dl [facility] BUN 16 10 - 26 mg/dl [facility] Calcium 9.0 8.5 - 10.5 mg/dl [facility] Calculated Calcium 9.3 8.5 - 10.5 mg/dl [facility] Glucose, Serum 97 70 - 100 mg/dl [facility] Fasting? Yes Performed at [facility], [place], [place] [facility] Albumin/Globulin Ratio 1.3 [facility] 03/12/2006 9:18 EDT 03/12/2006 9:20 EDT us Roxanna Hannah MD CHEMISTRY & BLOOD GAS OR DERABLES Final Result [facility] [address] [place] [address] documented in this encounter Visit Diagnoses Not on filedocumented in this encounter Additional Health Concerns Infection Onset Date Last Indicated Resolved Time COVID-19 03/22/2022 03/22/2022 04/11/2022 22:1 5 EDT documented as of this encounter
--- OUTSIDE RECORDS SUMMARY | 2024-10-06 13:52 | XMS_ITS | Encounter Summary ---
Author Organization [facility] Address [address] [place] [address] Care Team Providers Care Barrel Bander Name Role Phone Unavailable Primary Care Provider Unavailabl e Encounter Details Date Type Department Care Team (Late st Contact Info) Description 04/10/2006 11:41 EDT Hospital Encounter [facility] [address] [place] [address] Minal Herrera, DO [address] [place] [address] Social History Tobacco Use Types Packs/Day Years [...] learn more about your health please visit: https://www.[facility].org/medcenter/Pages/Wellness-Resources/Xpokkdjsk-Pvtmjc-Xb sourc e-Center.aspx LDL < 100 Result Component Hyperlipidemia 56( 0 12:18 EST) No Maggie Andrade LPN HEMOGLOBIN A1C < 7.0 Result Component Type 2 diabetes mellitus ([facility]) 7.7(12/30/19 20 12:18 EST) No Maggie Andrade LPN documented as of this encounter Procedures Procedure Name Priority Date/Time Associated Diagnosis Comments COMPLETE BLOOD COUNT Routine 04/10/2006 11:45 EDT ALT Routine 04/10/2006 11:45 EDT AST Routine 04/10/2006 11:45 EDT ALKALINE PHOSPHATASE Routine 04/10/2006 11:45 EDT AMYLASE Routine 04/10/2006 11:45 EDT VALPROIC ACID LEVEL Routine 04/10/2006 1 1:45 EDT documented in this encounter Results * VALPROIC ACID (04/10/2006 11:45 EDT) Valproic Acid 56.4 50.0 - 100.0 ug/ml [facility] 04/10/2006 11:4 5 EDT 04/10/2006 11:47 EDT us A Shane Herrera DO CHEMISTRY & BLOOD GAS ORDE RABLES Final Result Performing Organization Address [facility] de Phone Number [facility] [address] [place] [address] * HEMAGRAM (04/10/2006 11:45 EDT) WBC 6.46 4.0 - 10.4 K/cmm [facility] RBC 5.12 4.36 - 5.78 M/cmm [facility] Hemoglobin 16.3 13.8 - 17.3 gm/dl [facility] HCT 46.6 39.5 - 50.2 % [facility] MCV 91 81 - 95 fl [facility] MCH 31.9 27.6 - 33.0 pg [facility] MCHC 35.0 32.8 - 36.4 gm/dl [facility] PLT 263 141 - 320 K/cmm [facility] RDW-CV 12.3 11.8 - 14.1 % [facility] Comment:Performed at [place], [place] 04/10/2006 11:4 5 EDT 04/10/2006 11:47 EDT us A Shane Herrera DO HEMATOLOGY & PF4 ORDERABLE S Final Result Performing Organization Address [facility] de Phone Number [facility] [address] [place] [address] * AST (04/10/2006 11:45 EDT) AST 29 15 - 46 U/L [facility] Comment:Performed at [facility] [employer] [place], [place] 04/10/2006 11:4 5 EDT 04/10/2006 11:47 EDT us A Shane Herrera DO CHEMISTRY & BLOOD GAS ORDE RABLES Final Result [facility] [address] [place] [address] * AMYLASE (04/10/2006 11:45 EDT) Amylase 46 30 - 110 U/L [facility] Comment:Performed at [place], [place] 04/10/2006 11:4 5 EDT 04/10/2006 11:47 EDT us A Shane Herrera DO CHEMISTRY & BLOOD GAS ORDE RABLES Final Result Performing Organization Address [facility] Co de Phone Number [facility] [address] [place] [address] * ALT (04/10/2006 11:45 EDT) ALT 39 21 - 72 U/L [facility] Comment:Performed at [place], [place] 04/10/2006 11:4 5 EDT 04/10/2006 11:47 EDT us A Shane Herrera DO CHEMISTRY & BLOOD GAS ORDE RABLES Final Result Performing Organization Address [facility] de Phone Number [facility] [address] [place] [address] * ALKALINE PHOSPHATASE (04/10/2006 11:45 EDT) Total Alkaline Phosphatase 76 38 - 126 U/L [facility] Comment:Performed at [facility] [place] 04/10/2006 11:4 5 EDT 04/10/2006 11:47 EDT us A Shane Herrera DO CHEMISTRY & BLOOD GAS ORDE RABLES Final Result Performing Organization Address City/[facility] Co de Phone Number [facility] [address] [place] [address] documented in this encounter Visit Diagnoses Not on filedocumented in this encounter Additional Health Concerns Infection Onset Date Last Indicated Resolved Time COVID-19 03/22/2022 03/22/2022 04/11/2022 22:1 5 EDT documented as of this encounter
--- OUTSIDE RECORDS SUMMARY | 2024-10-06 13:52 | XMS_ITS | Encounter Summary ---
Author Organization [facility] Address [address] [place] [address] Care Team Providers Care Rubber Grinder Name Role Phone Unavailable Primary Care Provider Unavailabl e Encounter Details Date Type Department Care Team (Late st Contact Info) Description 03/19/2007 12:45 EDT Hospital Encounter [facility] - Maple conversion [address] [place] [address] Roxanna Hannah MD [address] [place] [phone] Social History Tobacco Use Types Packs/Day Years [...] about your health please visit: https://www.[facility].org/medcenter/Pages/Wellness-Resources/Gttclcxap-Dcjfww-Af sourc e-Center.aspx LDL < 100 Result Component Hyperlipidemia 56( 0 12:18 EST) No Maggie Andrade LPN HEMOGLOBIN A1C < 7.0 Result Component Type 2 diabetes mellitus ([facility]) 7.7(12/30/19 20 12:18 EST) No Maggie Andrade LPN documented as of this encounter Visit Diagnoses Not on filedocumented in this encounter Additional Health Concerns Infection Onset Date Last Indicated Resolved Time COVID-19 03/22/2022 03/22/2022 04/11/2022 22:1 5 EDT documented as of this encounter
--- OUTSIDE RECORDS SUMMARY | 2024-10-06 13:52 | XMS_ITS | Encounter Summary ---
Author Organization [facility] Address [address] [place] [address] Care Team Providers Care Greige Mender Name Role Phone Unavailable Primary Care Provider Unavailabl e Encounter Details Date Type Department Care Team (Late st Contact Info) Description 03/25/2001 11:37 EDT - 03/25/2001 11:59 EDT Hospital Encounter [facility] - Other [address] [place] [address] [facility] [address] [place] [address] Unknown, Provider, Discharge Disposition: Auto Discharge Social [...] Associated Diagnosis Comments VALPROIC ACID LEVEL Routine 03/25/2001 1 8:15 EDT documented in this encounter Results * VALPROIC ACID (03/25/2001 18:15 EDT) Valproic Acid 75.8 50.0 - 100.0 ug/ml [facility] 03/25/2001 18:1 5 EDT 03/25/2001 21:06 EDT us Bozena Arias MD CHEMISTRY & BLOOD GAS ORDERABLES Final Result [facility] [address] [place] [address] documented in this encounter Visit Diagnoses Not on filedocumented in this encounter
--- OUTSIDE RECORDS SUMMARY | 2024-10-06 13:52 | XMS_ITS | Encounter Summary ---
Author Organization [facility] Address [address] [place] [address] Care Team Providers Care Hereditary Cancer Program Coordinator Name Role Phone Unavailable Primary Care Provider Unavailabl e Encounter Details Date Type Department Care Team (Late st Contact Info) Description 11/11/2008 8:13 EST Hospital Encounter [facility] - Maple conversion [address] [place] [address] Delbert William MD [facility] [address] [phone] Social History Tobacco Use Types Packs/Day Years [...] learn more about your health please visit: https://[facility].org/medcenter/Pages/Wellness-Resources/Klftzrvyz-Xfjtyx-Bb sourc e-Center.aspx LDL < 100 Result Component Hyperlipidemia 56( 0 12:18 EST) No Maggie Andrade LPN HEMOGLOBIN A1C < 7.0 Result Component Type 2 diabetes mellitus ([facility]) 7.7(12/30/19 20 12:18 EST) No Maggie Andrade LPN documented as of this encounter Visit Diagnoses Not on filedocumented in this encounter Additional Health Concerns Infection Onset Date Last Indicated Resolved Time COVID-19 03/22/2022 03/22/2022 04/11/2022 22:1 5 EDT documented as of this encounter
--- OUTSIDE RECORDS SUMMARY | 2024-10-06 13:52 | XMS_ITS | Encounter Summary ---
Author Organization [facility] Address [address] [place] [address] Care Team Providers Care Car Mechanic Helper Name Role Phone Roxanna Hannah MD Primary Care Provider + Unknown, Provider Primary Care Provider Unava ilRoxanna Bourne MD Primary Care Provider + Rebeca Garcia Primary Care Provider + Encounter Details Date Type Department Care Team (Late st Contact Info) Description 04/27/2007 Before PRISM Converted Visit (Map[facility]) [facility] - Maple conversion [address] [place] [address] Edi Florian MD [address] [place] [address] [place] [phone] Social History Tobacco Use Types Packs/Day [...] documented as of this encounter Care Teams Car Mechanic Helper Relationship Specialty Start Date End Date Roxanna Hannah MD [address] [place] [phone] PCP - General 03/28/09 05/31/20 Unknown, Provider, [address] [place] [phone] PCP - General 06/01/20 09/11/20 Roxanna Hannah MD [address] [place] [phone] PCP - General Family Medicine - Primary Care 09/12/20 12/08/20 Rebeca Garcia PA [address] [place] [phone] PCP - General 11/25/21 documented as of this encounter
--- OUTSIDE RECORDS SUMMARY | 2024-10-06 13:52 | XMS_ITS | Encounter Summary ---
Author Organization [facility] Address [address] [place] [address] Care Team Providers Care Data Programmer Name Role Phone Unavailable Primary Care Provider Unavailabl e Encounter Details Date Type Department Care Team (Late st Contact Info) Description 03/21/2005 15:37 EDT Hospital Encounter [facility] - Other [address] [place] [address] Romulo Calloway MD [address] [phone] Social History Tobacco Use Types Packs/Day Years [...] about your health please visit: https://www.[facility].org/medcenter/Pages/Wellness-Resources/Tszzjbhcj-Prhups-Wp sourc e-Center.aspx LDL < 100 Result Component Hyperlipidemia 56( 0 12:18 EST) No Maggie Andrade LPN HEMOGLOBIN A1C < 7.0 Result Component Type 2 diabetes mellitus ([facility]) 7.7(12/30/19 20 12:18 EST) No Maggie Andrade LPN documented as of this encounter Visit Diagnoses Not on filedocumented in this encounter Additional Health Concerns Infection Onset Date Last Indicated Resolved Time COVID-19 03/22/2022 03/22/2022 04/11/2022 22:1 5 EDT documented as of this encounter
--- OUTSIDE RECORDS SUMMARY | 2024-10-06 13:52 | XMS_ITS | Encounter Summary ---
Author Organization [facility] Address [address] [place] [address] Care Team Providers Care Video Game Engineer Name Role Phone Roxanna Hannah MD Primary Care Provider + Encounter Details Date Type Department Care Team (Late st Contact Info) Description 03/19/2006 Results Only [facility] Family Medicine - [address] [id number] Roxanna Hannah MD [address] [place] [phone] Social History Tobacco Use Types Packs/Day Years [...] Date/Time Associated Diagnosis Comments THYROID CASCADE Routine 03/19/2006 15:06 EDT PHOSPHORUS Routine 03/19/2006 15:06 EDT MAGNESIUM Routine 03/19/2006 15:06 EDT VALPROIC ACID LEVEL Routine 03/19/2006 1 5:06 EDT COMPREHENSIVE METABOLIC PANEL (CMP) Routine 03/19/2006 15:06 EDT documented in this encounter Results * (ABNORMAL) VALPROIC ACID (03/19/2006 15:06 EDT) Valproic Acid 117.7(H) 50.0 - 100.0 ug/ml [facility] 03/19/2006 15:0 6 EDT 03/19/2006 18:47 EDT Roxanna Hannah MD CHEMISTRY & BLOOD GAS OR DERABLES Final Result Performing Organization Address [facility] Co de Phone Number [facility] [address] [place] [address] * THYROID CASCADE (03/19/2006 15:06 EDT) TSH 1.63 0.35 - 5.00 uIU/mL [facility] Comment: TSH cascade is not recommended for patients in which pituitary or hypothalamic disorders are suspected. 03/19/2006 15:0 6 EDT 03/19/2006 18:47 EDT Roxanna Hannah MD CHEMISTRY & BLOOD GAS OR DERABLES Final Result Performing Organization Address [facility] de Phone Number [facility] [address] [place] [address] * (ABNORMAL) PHOSPHORUS (03/19/2006 15:06 EDT) Phosphorus 2.3(L) 2.5 - 4.5 mg/dl [facility] 03/19/2006 15:0 6 EDT 03/19/2006 18:47 EDT Roxanna Hannah MD CHEMISTRY & BLOOD GAS OR DERABLES Final Result Performing Organization Address [facility] de Phone Number [facility] [address] [place] [address] * MAGNESIUM (03/19/2006 15:06 EDT) Magnesium 2.1 1.7 - 2.8 mg/dl [facility] 03/19/2006 15:0 6 EDT 03/19/2006 18:47 EDT Roxanna Hannah MD CHEMISTRY & BLOOD GAS OR DERABLES Final Result Performing Organization Address City/[facility] Co de Phone Number [facility] [address] [place] [address] * COMPREHENSIVE METABOLIC PANEL (03/19/2006 15:06 EDT) Potassium 4.6 3.5 - 5.0 mEq/L [facility] Sodium 141 136 - 145 mEq/L [facility] Chloride 103 96 - 110 mEq/L [facility] CO2 28 24 - 32 mEq/L [facility] Total Alkaline Phosphatase 70 38 - 126 U/L [facility] Bilirubin, Total 0.5 0.2 - 1.3 mg/dl [facility] AST 35 15 - 46 U/L [facility] ALT 51 21 - 72 U/L [facility] Albumin 4.4 3.4 - 4.9 g/dl [facility] Total Protein 7.5 6.5 - 8.3 g/dl [facility] Creatinine 1.0 0.7 - 1.5 mg/dl [facility] BUN 18 10 - 26 mg/dl [facility] Calcium 9.3 8.5 - 10.5 mg/dl [facility] Calculated Calcium 9.3 8.5 - 10.5 mg/dl [facility] Glucose, Serum 70 70 - 100 mg/dl [facility] Fasting? No [facility] Albumin/Globulin Ratio 1.4 [facility] 03/19/2006 15:0 6 EDT 03/19/2006 18:47 EDT Roxanna Hannah MD CHEMISTRY & BLOOD GAS OR DERABLES Final Result Performing Organization Address [facility] Co de Phone Number [facility] [address] [place] [address] documented in this encounter Visit Diagnoses Not on filedocumented in this encounter Care Teams Video Game Engineer Relationship Specialty Start Date End Date Roxanna Hannah MD [address] [place] [phone] PCP - General 03/28/09 05/31/20 documented as of this encounter
--- OUTSIDE RECORDS SUMMARY | 2024-10-06 13:52 | XMS_ITS | Encounter Summary ---
Author Organization [facility] Address [address] [place] [address] Care Team Providers Care Family And Divorce Legal Assistant Name Role Phone Unavailable Primary Care Provider Unavailabl e Encounter Details Date Type Department Care Team (Late st Contact Info) Description 03/09/2009 11:53 EDT Hospital Encounter [facility] - Maple conversion [address] [place] [address] Roxanna Hannah MD [address] [place] [phone] Social History Tobacco Use Types Packs/Day Years [...] more about your health please visit: https://www.[facility].org/medcenter/Pages/Wellness-Resources/Iovcncvww-Uycbtt-Ah sourc e-Center.aspx LDL < 100 Result Component Hyperlipidemia 56( 0 12:18 EST) No Maggie Andrade LPN HEMOGLOBIN A1C < 7.0 Result Component Type 2 diabetes mellitus ([facility]) 7.7(12/30/19 20 12:18 EST) No Maggie Andrade LPN documented as of this encounter Procedures Procedure Name Priority Date/Time Associated Diagnosis Comments URINE [id number] E RATIO (ACR) Routine 08/24/2009 10:09 EDT TESTOSTERONE, TOTAL AND FREE Routine 08/24/2009 10:03 EDT HEMOGLOBIN A1C Routine 08/24/2009 10:03 EDT GLUCOSE, SERUM Routine 08/24/2009 10:03 EDT VALPROIC ACID LEVEL Routine 08/24/2009 1 0:03 EDT HEMOGLOBIN A1C Routine 03/28/2009 9:38 EDT BASIC METABOLIC PANEL (BMP) Routine 03/28/2009 9:38 EDT documented in this encounter Results * MICROALBUMIN (08/24/2009 10:09 EDT) Creatinine, Urn [place] 207.1 mg/dl [facility] Ur Albumin mg/dl 0.4 <1.9 mg/dl [facility] Ur Alb ug/mg Crea 1.9 ug/mg Crea [facility] Comment: Normal: ??<30 ug/mg Creat Microalbuminuria: ??30-300 ug/mg Creat Clinical albuminuria: ??>300 ug/mg Creat Urine specimen (specimen) 08/24/2009 10:09 EDT 08/24/2009 17:35 EDT Roxanna Hannah MD CHEMISTRY & BLOOD GAS OR DERABLES Final Result Performing Organization Address [facility] Co de Phone Number [facility] [address] [place] [address] * VALPROIC ACID (08/24/2009 10:03 EDT) Valproic Acid 94.8 50.0 - 100.0 ug/ml [facility] Blood specimen (specimen) 08/24/2009 10:03 EDT 08/24/2009 17:36 EDT Roxanna Hannah MD CHEMISTRY & BLOOD GAS OR DERABLES Final Result Performing Organization Address [facility] de Phone Number [facility] [address] [place] [address] * (ABNORMAL) TOTAL & FREE TESTOSTERONE (08/24/2009 10:03 EDT) Sex Hormone Binding Globulin 29.4 13 - 71 nmol/L [facility] Testosterone, Total 231(L) 241 - 827 ng/dL [facility] Testosterone, Free 4.8(L) 5.0 - 24.0 ng/dl [facility] Comment: Test not recommended in patients with plasma protein abnormalities. Blood specimen (specimen) 08/24/2009 10:03 EDT 08/24/2009 17:36 EDT Roxanna Hannah MD CHEMISTRY & BLOOD GAS OR DERABLES Final Result Performing Organization Address [facility] de Phone Number [facility] [address] [place] [address] * HEMOGLOBIN A1C (08/24/2009 10:03 EDT) Hemoglobin A1C 5.8 % [facility] Comment: Reference Range: <6% Normal Range ADA guidelines: The A1c goal for non adults in general is <7% The A1c goal for selected individual patients is as close to normal (<6%) as possible without significant hypoglycemia. Est Avg Glucose 120 mg/dl [facility] Comment: eAG represents the A1c result expressed as average glucose in mg/dl. Blood specimen (specimen) 08/24/2009 10:03 EDT 08/24/2009 17:36 EDT Roxanna Hannah MD CHEMISTRY & BLOOD GAS OR DERABLES Final Result Performing Organization Address [facility] de Phone Number [facility] [address] [place] [address] * GLUCOSE, SERUM (08/24/2009 10:03 EDT) Glucose, Serum 87 70 - 100 mg/dl [facility] Blood specimen (specimen) 08/24/2009 10:03 EDT 08/24/2009 17:36 EDT Roxanna Hannah MD CHEMISTRY & BLOOD GAS OR DERABLES Final Result Performing Organization Address [facility] de Phone Number [facility] [address] [place] [address] * HEMOGLOBIN A1C (03/28/2009 9:38 EDT) Hemoglobin A1C 6.0 % [facility] Comment: Reference Range: <6% Normal Range ADA guidelines: The A1c goal for non adults in general is <7% The A1c goal for selected individual patients is as close to normal (<6%) as possible without significant hypoglycemia. Est Avg Glucose 126 mg/dl [facility] Comment: eAG represents the A1c result expressed as average glucose in mg/dl. Blood specimen (specimen) 03/28/2009 9:38 EDT 03/28/2009 9:39 EDT Roxanna Hannah MD CHEMISTRY & BLOOD GAS OR DERABLES Final Result Performing Organization Address [facility] Co de Phone Number [facility] [address] [place] [address] * BASIC METABOLIC PANEL (03/28/2009 9:38 EDT) Sodium 142 136 - 145 mEq/L [facility] Potassium 4.5 3.5 - 5.0 mEq/L [facility] Chloride 102 96 - 110 mEq/L [facility] CO2 30 24 - 32 mEq/L [facility] BUN 19 10 - 26 mg/dl [facility] Creatinine 0.92 0.7 - 1.5 mg/dl [facility] GFR, Calculated >60 ml/min/1.7 3m2 [facility] Calcium 8.9 8.5 - 10.5 mg/dl [facility] Calculated Calcium 9.2 8.5 - 10.5 mg/dl [facility] Glucose, Serum 88 70 - 100 mg/dl [facility] Fasting? Yes [facility] Blood specimen (specimen) 03/28/2009 9:38 EDT 03/28/2009 9:39 EDT Roxanna Hannah MD CHEMISTRY & BLOOD GAS OR DERABLES Final Result Performing Organization Address [facility] Co de Phone Number [facility] [address] [place] [address] documented in this encounter Visit Diagnoses Not on filedocumented in this encounter Additional Health Concerns Infection Onset Date Last Indicated Resolved Time COVID-19 03/22/2022 03/22/2022 04/11/2022 22:1 5 EDT documented as of this encounter
--- OUTSIDE RECORDS SUMMARY | 2024-10-06 13:52 | XMS_ITS | Encounter Summary ---
Author Organization [facility] Address [address] [place] [address] Care Team Providers Care Dispensary Attendant Name Role Phone Unavailable Primary Care Provider Unavailabl e Encounter Details Date Type Department Care Team (Late st Contact Info) Description 02/07/2001 22:14 EST Hospital Encounter [facility] - Other [address] [place] [address] Bozena Arias MD [address] [place] [phone] Unknown, Provider, Discharge Disposition: Auto Discharge Social [...] Associated Diagnosis Comments VALPROIC ACID LEVEL Routine 02/07/2001 8:30 EST documented in this encounter Results * VALPROIC ACID (02/07/2001 8:30 EST) Valproic Acid 51.4 50.0 - 100.0 ug/ml [facility] Comment:LD 02/06/01 1130 02/07/2001 8:30 EST 02/07/2001 20:46 EST us Bozena Arias MD CHEMISTRY & BLOOD GAS ORDERABLES Final Result Performing Organization Address City/State/[facility] Co de Phone Number [facility] [address] [place] [address] documented in this encounter Visit Diagnoses Not on filedocumented in this encounter
--- OUTSIDE RECORDS SUMMARY | 2024-10-06 13:52 | XMS_ITS | Encounter Summary ---
Author Organization [facility] Address [address] [place] [address] Care Team Providers Care Assistant Refinery Operator Name Role Phone Roxanna Hannah MD Primary Care Provider + Encounter Details Date Type Department Care Team (Late st Contact Info) Description 03/21/2007 Results Only [facility] Family Medicine - [address] [address] Roxanna Hannah MD [address] [place] [phone] Social History Tobacco Use Types Packs/Day Years [...] Procedure Name Priority Date/Time Associated Diagnosis Comments HEPATIC FUNCTION PANEL (ALB,ALK PHOS,ALT,AST,DBIL,T OT RADHA,TOT PROT) Routine 03/21/2007 10:00 EDT LIPID PROFILE (INCLUDES CHOLESTEROL, TRIGLYCERIDES, HDL, LDL) Routine 03/21/2007 10:00 EDT documented in this encounter Results * LIPID PROFILE (INCLUDES CHOLESTEROL, TRIGLYCERIDES, HDL, LDL) (03/21/2007 10:00 EDT) Cholesterol 114 mg/dl [facility] Comment: Desirable:<200 Borderline:200-239 High Risk:>vr=193 Triglycerides 105 35 - 160 mg/dl [facility] HDL 24 mg/dl [facility] Comment: Highly Desirable:>60 Desirable:35-60 High Risk:<35 LDL, Calculated 69 mg/dl [facility] Comment: Desirable:<130 Borderline:130-159 High Risk:>gz=150 Chol/HDL Ratio 4.8 [facility] Fasting? Yes [facility] 03/21/2007 10:0 0 EDT 03/21/2007 13:29 EDT Roxanna Hannah MD CHEMISTRY & BLOOD GAS OR DERABLES Final Result Performing Organization Address [facility] de Phone Number [facility] [address] [place] [address] * LIVER FUNCTION TESTS (03/21/2007 10:00 EDT) Pathologist [facility] Albumin 4.2 3.4 - 4.9 g/dl [facility] Total Protein 6.9 6.5 - 8.3 g/dl [facility] Total Alkaline Phosphatase 67 38 - 126 U/L [facility] ALT 56 21 - 72 U/L [facility] AST 40 15 - 46 U/L [facility] Unconjugated Bilirubin 0.9 0.1 - 1.1 mg/dl [facility] Conjugated Bilirubin 0.0 0.0 - 0.3 mg/dl [facility] Bilirubin, Total 0.6 0.2 - 1.3 mg/dl [facility] 03/21/2007 10:0 0 EDT 03/21/2007 13:29 EDT Roxanna Hannah MD CHEMISTRY & BLOOD GAS OR DERABLES Final Result Performing Organization Address [facility] Co de Phone Number [facility] [address] [place] [address] documented in this encounter Visit Diagnoses Not on filedocumented in this encounter Care Teams Assistant Refinery Operator Relationship Specialty Start Date End Date Roxanna Hannah MD [address] [place] [phone] PCP - General 03/28/09 05/31/20 documented as of this encounter
--- OUTSIDE RECORDS SUMMARY | 2024-10-06 13:52 | XMS_ITS | Encounter Summary ---
Author Organization [facility] Address [address] [place] [address] Care Team Providers Care Quality Control Lab Tech Name Role Phone Roxanna Hannah MD Primary Care Provider + Encounter Details Date Type Department Care Team (Late st Contact Info) Description 03/21/2005 Results Only [facility] Family Medicine - [address] [phone] Roxanna Hannah MD [address] [place] [phone] Social History Tobacco Use Types Packs/Day Years [...] PANEL (ALB,ALK PHOS,ALT,AST,DBIL,T OT RADHA,TOT PROT) Routine 03/21/2005 15:26 EDT LIPID PROFILE (INCLUDES CHOLESTEROL, TRIGLYCERIDES, HDL, LDL) Routine 03/21/2005 15:26 EDT documented in this encounter Results * LIPID PROFILE (INCLUDES CHOLESTEROL, TRIGLYCERIDES, HDL, LDL) (03/21/2005 15:26 EDT) Cholesterol 187 mg/dl [facility] Comment: Desirable:<200 Borderline:200-239 High Risk:>fu=094 Triglycerides 110 35 - 160 mg/dl [facility] HDL 33 mg/dl [facility] Comment: Highly Desirable:>60 Desirable:35-60 High Risk:<35 LDL, Calculated 132 mg/dl [facility] Comment: Desirable:<130 Borderline:130-159 High Risk:>ht=795 Chol/HDL Ratio 5.7 [facility] Fasting? Yes [facility] 03/21/2005 15:2 6 EDT 03/21/2005 18:43 EDT Roxanna Hannah MD CHEMISTRY & BLOOD GAS OR DERABLES Final Result Performing Organization Address [facility] de Phone Number [facility] [address] [place] [address] * LIVER FUNCTION TESTS (03/21/2005 15:26 EDT) Pathologist [facility] Albumin 4.1 3.4 - 4.9 g/dl [facility] Total Protein 7.0 6.5 - 8.0 g/dl [facility] Total Alkaline Phosphatase 70 38 - 126 U/L [facility] ALT 29 21 - 72 U/L [facility] AST 32 15 - 46 U/L [facility] Unconjugated Bilirubin 0.9 0.1 - 1.1 mg/dl [facility] Conjugated Bilirubin 0.0 0.0 - 0.3 mg/dl [facility] Bilirubin, Total 0.9 0.2 - 1.3 mg/dl [facility] 03/21/2005 15:2 6 EDT 03/21/2005 18:43 EDT Roxanna Hannah MD CHEMISTRY & BLOOD GAS OR DERABLES Final Result Performing Organization Address [facility] Co de Phone Number [facility] [address] [place] [address] documented in this encounter Visit Diagnoses Not on filedocumented in this encounter Care Teams Quality Control Lab Tech Relationship Specialty Start Date End Date Roxanna Hannah MD [address] [place] [phone] PCP - General 03/28/09 05/31/20 documented as of this encounter
--- OUTSIDE RECORDS SUMMARY | 2024-10-06 13:52 | XMS_ITS | Encounter Summary ---
Author Organization [facility] Address [address] [place] [address] Care Team Providers Care Floral Artist Name Role Phone Unavailable Primary Care Provider Unavailabl e Encounter Details Date Type Department Care Team (Late st Contact Info) Description 09/11/2006 11:11 EDT Hospital Encounter [facility] - Maple conversion [address] [place] [address] Roxanna Hannah MD [address] [place] [phone] Social History Tobacco Use Types Packs/Day Years [...] learn more about your health please visit: https://www.[facility].org/medcenter/Pages/Wellness-Resources/Cnfbbpjjz-Gtoafw-Tr sourc e-Center.aspx LDL < 100 Result Component Hyperlipidemia 56( 0 12:18 EST) No Maggie Andrade LPN HEMOGLOBIN A1C < 7.0 Result Component Type 2 diabetes mellitus ([facility]) 7.7(12/30/19 20 12:18 EST) No Maggie Andrade LPN documented as of this encounter Visit Diagnoses Not on filedocumented in this encounter Additional Health Concerns Infection Onset Date Last Indicated Resolved Time COVID-19 03/22/2022 03/22/2022 04/11/2022 22:1 5 EDT documented as of this encounter
--- OUTSIDE RECORDS SUMMARY | 2024-10-06 13:52 | XMS_ITS | Encounter Summary ---
Author Organization [facility] Address [address] [place] [address] Care Team Providers Care Awning Hanger Name Role Phone Unavailable Primary Care Provider Unavailabl e Encounter Details Date Type Department Care Team (Late st Contact Info) Description 02/26/2006 14:26 EDT Hospital Encounter [facility] - Maple conversion [address] [place] [address] Roxanna Hannah MD [address] [place] [phone] Social History Tobacco Use Types Packs/Day Years [...] please visit: https://www.[facility].org/medcenter/Pages/Wellness-Resources/Eavepoyju-Ngmdix-Jr sourc e-Center.aspx LDL < 100 Result Component Hyperlipidemia 56( 0 12:18 EST) No Maggie Andrade LPN HEMOGLOBIN A1C < 7.0 Result Component Type 2 diabetes mellitus ([facility]) 7.7(12/30/19 20 12:18 EST) No Maggie Andrade LPN documented as of this encounter Visit Diagnoses Not on filedocumented in this encounter Additional Health Concerns Infection Onset Date Last Indicated Resolved Time COVID-19 03/22/2022 03/22/2022 04/11/2022 22:1 5 EDT documented as of this encounter
--- OUTSIDE RECORDS SUMMARY | 2024-10-06 13:52 | XMS_ITS | Encounter Summary ---
Author Organization [facility] Address [address] [place] [address] Care Team Providers Care Cash Register Repairer Name Role Phone Roxanna Hannah MD Primary Care Provider + Unknown, Provider Primary Care Provider Unava ilRoxanna Bourne MD Primary Care Provider + Rebeca Garcia Primary Care Provider + Encounter Details Date Type Department Care Team (Late st Contact Info) Description 04/27/2007 Before PRISM Converted Visit (Maple) [facility] - Maple conversion [address] [place] [address] Edi Florian MD [address] [place] [address] [place] [phone] Social History Tobacco Use Types Packs/Day [...] documented as of this encounter Care Teams Cash Register Repairer Relationship Specialty Start Date End Date Roxanna Hannah MD [address] [place] [phone] PCP - General 03/28/09 05/31/20 Unknown, Provider, [address] [place] [phone] PCP - General 06/01/20 09/11/20 Roxanna Hannah MD [address] [place] [phone] PCP - General Family Medicine - Primary Care 09/12/20 12/08/20 Rebeca Garcia PA [address] [place] [phone] PCP - General 11/25/21 documented as of this encounter
--- OUTSIDE RECORDS SUMMARY | 2024-10-06 13:52 | XMS_ITS | Encounter Summary ---
Author Organization [facility] Address [address] [place] [address] Care Team Providers Care Horse Racing Manager Name Role Phone Unavailable Primary Care Provider Unavailabl e Encounter Details Date Type Department Care Team (Latest Contact Info) Description 11/28/1999 8:04 EST - 11/28/1999 11:59 EST Hospital Encounter [facility] - Other [address] [place] [address] Jacklyn Cleaning MD [place] [phone] [place] [address] Unknown, Provider, Discharge Disposition: Auto Discharge Social [...] Associated Diagnosis Comments VALPROIC ACID LEVEL Routine 11/28/1999 1 4:15 EST HEPATIC FUNCTION PANEL (ALB,ALK PHOS,ALT,AST,DBIL,T OT RADHA,TOT PROT) Routine 11/28/1999 14:15 EST documented in this encounter Results * VALPROIC ACID (11/28/1999 14:15 EST) Valproic Acid 66.3 50.0 - 100.0 ug/ml [facility] 11/28/1999 14:1 5 EST 11/28/1999 19:49 EST Jacklyn Cleaning MD CHEMISTRY & BLOOD GAS ORDERABLES Final Result Performing Organization Address [facility] de Phone Number [facility] [address] [place] [address] * LIVER FUNCTION TESTS (11/28/1999 14:15 EST) Pathologist [facility] Albumin 4.1 3.0 - 5.5 g/dl [facility] Total Alkaline Phosphatase 73 38 - 126 U/L [facility] ALT 62 15 - 75 U/L [facility] AST 31 8 - 50 U/L [facility] Unconjugated Bilirubin 0.3 0.1 - 1.1 mg/dl [facility] Conjugated Bilirubin 0.0 0.0 - 0.3 mg/dl [facility] Bilirubin, Total 0.6 0.2 - 1.3 mg/dl [facility] 11/28/1999 14:1 5 EST 11/28/1999 19:49 EST Jacklyn Cleaning MD CHEMISTRY & BLOOD GAS ORDERABLES Final Result Performing Organization Address [facility] Co de Phone Number [facility] [address] [place] [address] documented in this encounter Visit Diagnoses Not on filedocumented in this encounter
--- OUTSIDE RECORDS SUMMARY | 2024-10-06 13:52 | XMS_ITS | Encounter Summary ---
Author Organization [facility] Address [address] [place] [address] Care Team Providers Care Milieu Therapist Name Role Phone Roxanna Hannah MD Primary Care Provider + Unknown, Provider Primary Care Provider Unava ilRoxanna Bourne MD Primary Care Provider + Rebeca Garcia Primary Care Provider + Encounter Details Date Type Department Care Team (Late st Contact Info) Description 04/27/2007 Before PRISM Converted Visit (Maple) [facility] - Maple conversion [address] [place] [address] Edi Florian MD [address] [place] [address] [place] [phone] Social History Tobacco Use Types Packs/Day [...] documented as of this encounter Care Teams Milieu Therapist Relationship Specialty Start Date End Date Roxanna Hannah MD [address] [place] [phone] PCP - General 03/28/09 05/31/20 Unknown, Provider, [address] [place] [phone] PCP - General 06/01/20 09/11/20 Roxanna Hannah MD [address] [place] [phone] PCP - General Family Medicine - Primary Care 09/12/20 12/08/20 Rebeca Garcia PA [address] [place] [phone] PCP - General 11/25/21 documented as of this encounter
--- OUTSIDE RECORDS SUMMARY | 2024-10-06 13:52 | XMS_ITS | Encounter Summary ---
Author Organization [facility] Address [address] [place] [address] Care Team Providers Care Classification Clerk Name Role Phone Roxanna Hannah MD Primary Care Provider + Encounter Details Date Type Department Care Team (Late st Contact Info) Description 04/27/2007 Office Visit [facility] - Maple conversion [address] [place] [address] Gabriele Oliver MD [address] [facility], [address] [place] [phone] Social History Tobacco Use Types Packs/Day Years Used Date Smoking Tobacco: Never Assessed Sex and Gender Information Value Date Recorded Sex Assigned at Not on file Legal Sex Male 18:06 EST Gender Identity Male 12/31/2019 13:46 EST Sexual Orientation Not on file documented as of this encounter Progress Notes * Gabriele Oliver MD - 01/15/2010 0926 EST Department - Physician Summary Registration Date/Time: 04/27/2007 19:00 Arrived- By ambulance. Historian- patient and EMS personnel. Attending Note: I personally interviewed the patient and examined the patient. HISTORY OF PRESENT ILLNESS Chief Complaint: CHEST PAIN. This started just prior to arrival and is now gone. Onset during moderate exertion. It is described as sharp, pain and well localized and it is described as located in the right chest and central chest area. No radiation. At its maximum, severity described as moderate. When seen in the E.D., it was gone. Modifying factors- Not worsened by anything. Not relieved by anything. He has had difficulty breathing (patient thinks that it was anxiety related). The patient has experienced diaphoresis. No nausea or vomiting. No additional chest pain. Patient has not had similar symptoms previously. Not recently seen/assessed. Additional history - He has experienced sweats and had chest pain. The patient has had nausea (indegestion). No fever, chills, fatigue, eye irritation or decreased vision. No ear pain or drainage, nasal congestion or discharge or sore throat. No palpitations, difficulty breathing, cough, vomiting or abdominal pain. No diarrhea, urinary problems, neck pain, back pain or skin rash. No headache, head injury, alteration in mental status, seizure or blackouts. Nonumbness, weakness, difficulty with ambulation or easy bruising. REVIEW OF SYSTEMS The patient has had chest pain. No fever, chills, sweats, fatigue or eye irritation. No decreased vision, ear pain or drainage or nasal congestion or discharge. No sore throat, palpitations, difficulty breathing, cough or nausea. No vomiting, abdominal pain, diarrhea, urinary problems or neck pain.No back pain, skin rash, headache, head injury or alteration in mental status. No dizziness, fainting episodes, numbness, weakness or depression. No easy bruising. PAST HISTORY See nurses notes. Hypertension. GERD, Seizure dx. Medications: The patient's medications have been reviewed. Allergies: The patient's allergies have been reviewed. SOCIAL HISTORY Nonsmoker. No alcohol use. PHYSICAL EXAM Appearance: Alert. Oriented X3. No acute distress. Eyes: Pupils equal, round and reactive to light. Eyes normal inspection. ENT: Ears normal. Nose normal. Pharynx normal. Neck: Normal inspection. Neck supple. CVS: Normal heart rate and rhythm. Heart sounds normal. Pulses normal. Respiratory: No respiratory distress. Breath sounds normal. Chest nontender. Abdomen: Abdomen soft and nontender. Back: Normal external inspection. Skin: Normal skin color. Skin warm. No rash. Extremities: Extremities exhibit normal ROM. Neuro: Oriented X 3. No motor deficit. No sensory deficit. Reflexes normal. LABS, X-RAYS, AND EKG EKG: Normal sinus rhythm. Rate: 90. Normal P waves. Normal QRS complex. T wave inversion in lead V3, V4 and V5. The study has been independently viewed by me. The study has been interpreted contemporaneously by me. The EKG appears to be a good tracing. CBC: WBC 7.41. HCT 48.4. Platelets 188. Chemistries: Na- 143. K- 3.5. Cl- 100. HCO3- 31. BUN- 19. Cr- 1.1. Cardiac Labs: CK 223. CK-MB normal. Troponin I within normal limits. Coagulation Studies: INR 1.1. PROGRESS AND PROCEDURES E.D. Course: Cardiology consult, Dr Florian.. Old medical records ordered. Disposition: Admitted to Cardiology. Condition: good. CLINICAL IMPRESSION Chest pain. (Electronically signed by Gabriele Oliver MD 04/27/2007 22:19) Department - Nursing Summary Registration Date/Time: 04/27/2007 19:00 TRIAGE Initial Assessment Triage time 19:03 Apr 27 2007. Acuity: LEVEL 2. BP: 180 / 103. HR: 97 NSR. RR: 15. Temp: 36.5 C (oral). O2 saturation: 99% room air. Alert. No acute distress. --1910 Chester CaponeN.. Medications Blood pressure pill. Depakote. Lipitor. Prilosec. --1910 [place] CaponeNErika Hydrochlorothiazide. --1919 Chester CaponeN.. Allergies (TAGATROL). --1911 Chester CaponeNErika. History Chief Complaint: CHEST PAIN. This started just prior to arrival. Describes the quality as pressure, sharp, well localized. Relates location as in the central chest area. Denies radiation. Pain level now: 610. Provoking / relieving factors: relieved by rest. Relief was transient. No difficulty breathing, sweating episodes, nausea or vomiting. Treatment PULLEY MAN: None. EMS treatment PULLEY MAN verbally communicated. See EMS report. Oxygen administered by nonrebreather mask. BP: 158 / 113. HR: 97. O2 saturation: on O2 100 % (nonrebreather mask). PAST HX: Hiatal hernia. Infectious disease exposure. Patient is a known carrier of hepatitis. Cholecystectomy. Right rotator cuff surgery. SOCIAL HX: Nonsmoker. No alcohol use or drug use. Functional assessment performed: wears glasses. No report of abuse. Arrived by EMS and from work ([employer]). Historian: patient and EMS. --1911 Carlitos Mike R.N. PAST HX: Hypertension. Seizures. Gastroesophageal reflux disease. Hyperlipidemia. --1919 [place]. Treatment PULLEY MAN: Interventions CHEST PAIN protocol initiated. --1911 Carlitos Mike R.N.. PHYSICAL ASSESSMENT To room via stretcher. Alert. Appears in no acute distress. Respirations not labored. Cardiac rhythm: normal sinus rhythm. Mild obesity. Skin is warm and dry. --1911 Carlitos Mike R.N.. NURSING PROGRESS NOTES Oxygen administered by nasal cannula at 2 liters. assistant manager trainee, pulse oximeter and NIBP monitor placed on patient; travel sales consultant- Lead II; monitor alarms on. 12-lead EKG was performed by a nurseand shown to the ED physician (TO MD OLIVER). Patient gowned. Head of bed elevated. Call light placed in reach of patient. Side rails up x 2. Bed placed in lowest position. Brakes of bed on. Patient ready for evaluation. --1908 Carlitos Mike R.N. Reassessment after oxygen administered. The patient is calm and resting quietly. Patient reports current pain level as 2/10. The patient reports chest pain is still present but improving. Denies difficulty breathing. --1911 Carlitos Mike R.N. ED physician at the patient's bedside (MD OLIVER FOR EVAL). --1916 Carlitos Mike R.N. Spouse at bedside. --1919 Carlitos Mike R.N. Blood samples drawn from the left antecubital space peripheral IV site by nurse per protocol and sent to lab: green, purple, blue and tiger top; total amount drawn 12 mL. --1930 Carlitos Mike R.N. The patient reports chest pain is gone now. Denies difficulty breathing. --1930 Carlitos Mike R.N. Patient reports current pain level as 1/10. The patient reports right-sided chest pain (HEAVINESS). Denies radiation of chest pain or associated symptoms. ED physician notified about patient's status. Notified (MD OLIVER AWARE). --2029 Carlitos Mike R.N. Patient waiting for admit bed. --2130 Carlitos Mike R.N. BP: 142 / 90. HR: 86. RR: 18. Cardiac rhythm: normal sinus rhythm. Nutrition offered. The patient reports no complaints and the patient is calm and resting quietly. Patient and family informed about reason for wait. --2227 Carlitos Mike R.N. Nutrition offered (SANDWICH & BEVERAGE TO BEDSIDE PER MD OLIVER). --2235 Carlitos Mike R.N.. / I&O Flowsheet IV access: right antecubital space. IV start unsuccessful, with 20g angiocath using aseptic technique; one attempt. Saline lock placed; (BY EMT-I STUDENT). --1930 Carlitos Mike R.N. IV access: left antecubital space. IV started in ED with 20g angiocath using aseptic technique, with good blood return; one attempt. Saline lock placed. --1930 Carlitos Mike R.N. OUTPUT: urine 500 mL. --2235 Carlitos Mike R.N.. DISPOSITION / DISCHARGE Report was given (PAULA M5). --2237 Cralitos Mike R.N. Patient reports pain level on departure as 0/10. Condition at departure: improved. Fall risk assessment completed. No fall risk identified. Admitted to telemetry. Transported via stretcher by tech with monitor, defibrillator and O2. Patient's personal items include, BAG LABELED; items were placed in belongings bag and given to the spouse. --2300 Carlitos Mike R.N.. Carlitos Mike R.N. Locked/Released at 04/27/2007 23:01 by Carlitos Mike R.N. documented in this encounter Plan of Treatment Not on file documented as of this encounter Visit Diagnoses Not on filedocumented in this encounter Care Teams Classification Clerk Relationship Specialty Start Date End Date Roxanna Hannah MD [address] [place] [phone] PCP - General 03/28/09 05/31/20 documented as of this encounter
[2024-10-06 18:52] LABS: Abs Immature Grans 0.04 10^3/uL (0.0-0.06); Absolute Basophil Count 0.03 10^3/uL (0.0-0.2); Absolute Eosinophil Count 0.07 10^3/uL (0.0-0.7); Absolute Lymphocyte Count 3.15 10^3/uL (1.2-3.4); Absolute Monocyte Count 0.45 10^3/uL (0.1-0.8); Absolute Neutrophil Count 3.13 10^3/uL (1.2-6.7); Basophils % 0.4 %; HGB 17.2 g/dL (13.5-17.5); Immature Grans % 0.6 %; Lymphocytes % 45.9 %; MCH 31.3 pg (27.0-33.0); MCHC 33.1 % (32.0-36.0); MCV 95 fL (80-95); MPV 11.3 fL (8.0-11.0); Monocytes % 6.6 %; Neutrophils % 45.5 %; Platelet Count 168 10^3/uL (130-400); RBC 5.49 10^6/uL (4.36-5.78); RDW 13.9 % (11.8-14.1); RDW-SD 48.7 fL; WBC 6.87 10^3/uL (4.4-10.8)
[2024-10-06 18:56] LABS: HCT 51.9 % (40.0-50.0)
[2024-10-06 19:18] LABS: ALT 25 U/L (16-63); AST 22 U/L (15-37); Albumin 3.6 g/dL (3.4-5.0); Alkaline Phosphatase 70 U/L (46-116); Anion Gap 8.9 mmol/L (3-11); BUN 16 mg/dL (7-18); Bilirubin, Total 0.47 mg/dL (0.2-1.0); CO2 29.1 mmol/L (21.0-32.0); Chloride 107 mmol/L (98-107); Estimated GFR 81.98 (mL/min/1.73m2); Glucose 108 mg/dL (74-106); Sodium 145 mmol/L (136-145); Total Protein 7.1 g/dL (6.4-8.2)
[2024-10-07 03:05] LABS: FREE T4 0.73 ng/dL (0.76-1.46)
[2024-10-07 18:42] LABS: Hepatitis C Ab w Rflx HCV PCR Negative (Negative)
== END 2024-10-06 13:36 | disposition home or self-care (01) ==
LOC: NCHCN 13:35
PROVIDERS: PCP Physician Assistant; Visit Provider Physician Assistant
DX: I10 Essential (primary) hypertension (principal); E11.9 Type 2 diabetes mellitus without complications; Z86.69 Personal history of other diseases of the nervous system and sense organs; Z79.899 Other long term (current) drug therapy; Z51.81 Encounter for therapeutic drug level monitoring; Z11.59 Encounter for screening for other viral diseases
CPT/HCPCS: 80053; 86803; 80164; 84439; 84443; 85025

== ENCOUNTER 2024-10-08 01:03 | Outpatient (CLI) | payer OTHER, SELFPAY ==
--- NOTE | 2024-10-08 10:00 | DI.US_ITS ---
Exam(s) US CAROTID EXAM: US CAROTID CLINICAL HISTORY: Unspecified visual disturbance, H53.9. TECHNIQUE: Ultrasound carotids performed using grayscale, color-flow, and spectral Doppler imaging. COMPARISON: No exams were available for comparison FINDINGS: RIGHT CAROTID ARTERY: Plaque: No significant plaque. The internal carotid artery is tortuous. Velocity elevation: None. LEFT CAROTID ARTERY: Plaque: No significant plaque. The internal carotid arteries tortuous. Velocity elevation: None. VERTEBRAL ARTERIES: Antegrade flow. Measurements: R Bulb: 68.5cm/s PS / 10.2cm/s ED R CCA: 93.2cm/s PS / 16.7cm/s ED R ECA: 77.6cm/s PS / 8.9cm/s ED R ICA Prox: 50.4cm/s PS / 11.5cm/s ED R ICA Mid: 76.9cm/s PS / 16.6cm/s ED R ICA Distal: 52.1cm/s PS /16cm/s ED R Vert: 43.3cm/s PS / 7.5cm/s ED R SVR: 0.8 R DVR: 1 L Bulb: 54.3cm/s PS / 13.8cm/s ED L CCA: 70.7cm/s PS / 21.4cm/s ED L ECA: 108.2cm/s PS / 13.4cm/s ED L ICA Prox: 47.8cm/s PS / 12.8cm/s ED L ICA Mid: 73.6cm/s PS / 20.1cm/s ED L ICA Distal: 89.3cm/s PS / 27.2cm/s ED L Vert: 58.3cm/s PS / 12.3cm/s ED L SVR: 1.3 L DVR: 1.3 IMPRESSION: No evidence for hemodynamically significant carotid stenosis. Criteria for Carotid Stenosis: Normal: ICA PSV <125 cm/s no plaque or intimal thickening is visible. <50% stenosis: ICA PSV <125 cm/s and plaque or intimal thickening is visible. 50-69% stenosis: ICA PSV is 125-250 cm/s and plaque is visible. >70% stenosis to near occlusion: ICA PSV >250 cm/s with visible plaque and luminal narrowing. DATA REPOSITORY:
== END 2024-10-08 01:23 ==
LOC: DI 01:03
PROVIDERS: PCP Physician Assistant; Visit Provider Physician Assistant
DX: H53.9 Unspecified visual disturbance (principal)
CPT/HCPCS: 93880

== ENCOUNTER 2025-01-06 15:29 | Outpatient (REF) | payer MEDICARE, SELFPAY ==
--- OUTSIDE RECORDS SUMMARY | 2025-01-06 15:35 | XMS_ITS | Encounter Summary ---
Author Organization [facility] Address [address] [place] [address] Care Team Providers Care Resource Development Manager Name Role Phone Unknown, Provider Primary Care Provider Unava ilable Reason for Visit * Reason Comments Other Encounter Details Date Type Department Care Team (Late st Contact Info) Description 06/10/2020 Refill [facility] Family Medicine - [address] [address] Roxanna Hannah MD [address] [place] [phone] Other Social History Tobacco Use Types Packs/Day [...] encounter Miscellaneous Notes * Telephone Encounter - [place], Lana, RN - 06/15/2020 1639 EDT Script refused. LANA KEVIN RN 06/15/2020 16:39 * Telephone Encounter - Kathleen Calhoun - 06/15/2020 1210 EDT Patient called back and states he lives in [place] half the year, that's why he requested the [facility] there. He is actually in [place] today, so will just pick the prescription up in [place], so this request can be disregarded. * Telephone Encounter - Heydi Adams - 06/15/2020 1101 EDT Left a message on patients voicemail asking him to contact the office. Can you call patient to confirm pharmacy? ??Looks like this was sent to [facility] in [place] and should still have refills. * Telephone Encounter - Kathleen Calhoun - 06/14/2020 1253 EDT Medication(s) Requested: Depakote 500mg Preferred Pharmacy: [facility] Is patient out of medication? Unknown - [...] about your health please visit: https://www.[facility].org/medcenter/Pages/Wellness-Resources/Wvmsmgnpp-Eofgiq-Gc sourc e-Center.aspx LDL < 100 Result Component Hyperlipidemia 56( 0 12:18 EST) No Maggie Andrade LPN HEMOGLOBIN A1C < 7.0 Result Component Type 2 diabetes mellitus ([facility]) 7.7(12/30/19 20 12:18 EST) No Maggie Andrade LPN documented as of this encounter Visit Diagnoses Not on filedocumented in this encounter Care Teams Resource Development Manager Relationship Specialty Start Date End Date Unknown, Provider, PCP - General 06/01/20 09/11/20 documented as of this encounter
--- OUTSIDE RECORDS SUMMARY | 2025-01-06 15:35 | XMS_ITS | Encounter Summary ---
Author Organization [facility] Address [address] [place] [address] Care Team Providers Care High School Music Director Name Role Phone Rebeca Garcia Primary Care Provider + Encounter Details Date Type Department Care Team (Late st Contact Info) Description 12/12/2022 Lab Requisition [facility] Pathology & Laboratory Medicine - [facility] [address] [place] [address] Steven Rodriguez MD [address] [place] [phone] Encounter for other general examination Social History [...] about your health please visit: [email or web address]/Pages/Wellness-Resources/Vlvzoxcwe-Gsfqrg-Ji sourc e-Center.aspx LDL < 100 Result Component Hyperlipidemia 56( 0 12:18 EST) No Maggie Andrade LPN HEMOGLOBIN A1C < 7.0 Result Component Type 2 diabetes mellitus ([facility]) 7.7(12/30/19 20 12:18 EST) No Maggie [...] explore management options, if applicable. 12/17/2022 8:46 [facility] Final Diagnosis A. STOMACH, ANTRUM, BIOPSY: - Oxyntic-type mucosa with chemical (reactive) gastropathy. B. STOMACH, POLYP, BIOPSY: - Fundic gland polyp. C. ESOPHAGUS, LOWER, BIOPSY: - Reactive squamocolumnar mucosa. - Negative for intestinal metaplasia. - Negative for dysplasia. 12/17/2022 8:46 [facility] Attestation By the signature below, the attending physician certifies that they have 1) personally conducted a gross and/or microscopic examination of the described specimen(s), and/or personally interpreted the results of laboratory testing of the described specimen(s), and 2) personally rendered or confirmed the above diagnosis. 12/17/2022 8:46 [facility] at 0846 Clinical History Chronic GERD, dysplasia of polyp; esophagitis/osmin l colon 12/17/2022 8:46 [facility] Gross Description A. Received in [...] C1. Lora Pham 12/13/2022 8:24 12/17/2022 8:46 [facility] Performing Lab [facility] 12/17/2022 8:46 EST [facility] Scanned Images 12/17/2022 8:46 EST [facility] Tissue ENTIRE ESOPHAGUS / Unknown 12/12/2022 12:00 EST 12/13/2022 6:58 EST Tissue specimen (specimen) SPECIMEN FROM STOMACH OBTAINED BY TOTAL GASTRECTOMY / Unknown 12/12/2022 12:00 EST 12/13/2022 6:58 EST Tissue specimen (specimen) ESOPHAGEAL STRUCTURE / Unknown 12/12/2022 12:00 EST 12/13/2022 6:58 EST us Steven Rodriguez MD PATHOLOGY ORDERABLES Final Resul t [facility] [address] [place] [address] documented in this encounter Visit Diagnoses Diagnosis Encounter for other general examination documented in this encounter Care Teams High School Music Director Relationship Specialty Start Date End Date Rebeca Garcia PA [address] [place] [phone] PCP - General 11/25/21 documented as of this encounter
--- OUTSIDE RECORDS SUMMARY | 2025-01-06 15:35 | XMS_ITS | Encounter Summary ---
Author Organization [facility] Address [address] [place] [address] Care Team Providers Care First Cook Name Role Phone Roxanna Hannah MD Primary Care Provider + Reason for Visit * Reason Onset Date Comments Medical Records 03/08/2020 Encounter Details Date Type Department Care Team (Late st Contact Info) Description 03/08/[address] [phone] Roxanna Hannah MD [address] [place] [phone] Medical Records Social History Tobacco Use Types [...] on: 03/07/2020 Records to be sent to: [facility] Care Sent to HIM on: 03/08/2020 [...] learn more about your health please visit: https://www.[email or web address]/medcenter/Pages/Wellness-Resources/Fkqdnjklh-Ballnc-Lw sourc e-Center.aspx LDL < 100 Result Component Hyperlipidemia 56( 0 12:18 EST) No Maggie Andrade LPN HEMOGLOBIN A1C < 7.0 Result Component Type 2 diabetes mellitus ([facility]) 7.7(12/30/19 20 12:18 EST) No [place], Maggie, LATENT FINGERPRINT EXAMINER documented as of this encounter Visit Diagnoses Not on filedocumented in this encounter Care Teams First Cook Relationship Specialty Start Date End Date Roxanna Hannah MD [address] [place] [phone] PCP - General 03/28/09 05/31/20 documented as of this encounter
--- OUTSIDE RECORDS SUMMARY | 2025-01-06 15:35 | XMS_ITS | Encounter Summary ---
Author Organization [facility] Address [address] [place] [address] Care Team Providers Care Outcomes Analyst Name Role Phone Unknown, Provider Primary Care Provider Roxanna Jacome MD Primary Care Provider + Reason for Visit * Reason Comments Patient Outreach Encounter Details Date Type Department Care Team (Late st Contact Info) Description 06/02/[address] [phone] Unknown, Provider, MD Patient Outreach Social History [...] his care as he lives in the [facility] most of the time and wants to [...] learn more about your health please visit: https://www.[facility].org/medcenter/Pages/Wellness-Resources/Chyvvvasc-Jpbsxq-Zl sourc e-Center.aspx LDL < 100 Result Component Hyperlipidemia 56( 0 12:18 EST) No Maggie Andrade LPN HEMOGLOBIN A1C < 7.0 Result Component Type 2 diabetes mellitus ([facility]) 7.7(12/30/19 20 12:18 EST) No Maggie Andrade LPN documented as of this encounter Visit Diagnoses Not on filedocumented in this encounter Care Teams Outcomes Analyst Relationship Specialty Start Date End Date Unknown, Provider, PCP - General 06/01/20 09/11/20 Roxanna Hannah MD [address] [place] [phone] PCP - General Family Medicine - Primary Care 09/12/20 12/08/20 documented as of this encounter
--- OUTSIDE RECORDS SUMMARY | 2025-01-06 15:35 | XMS_ITS | Encounter Summary ---
Author Organization [facility] Address [address] [place] [address] Care Team Providers Care Engraving Press Operator Name Role Phone Rebeca Garcia Primary Care Provider + Reason for Visit * (Routine/Next Available) - Receiving Office to Obtain Authorization Specialty Diagnoses / Procedures Referred By Nela bravo Referred To Contact Procedures MR OUTSIDE IMAGES HEAD Unknown, Provider, MD Referral ID Status Reason Start Date Expiration Date Visits Requested Visits Authorized [id number] Receiving Office to Obtain Authorization 05/15/2023 1 1 Encounter Details Date Type Department Care Team (Latest Contact Info) Description 05/10/2023 - 05/10/2023 23:59 EDT Hospital Encounter [facility] Secondary Reads [place] Discharge Disposition: Home or [...] more about your health please visit: https://www.[email or web address]/medcenter/Pages/Wellness-Resources/Xovtyltyh-Rfzyzc-Vj sourc e-Center.aspx LDL < 100 Result Component Hyperlipidemia 56( 0 12:18 EST) No Maggie Andrade LPN HEMOGLOBIN A1C < 7.0 Result Component Type 2 diabetes mellitus ([facility]) 7.7(12/30/19 20 12:18 EST) No Maggie [...] on filedocumented in this encounter Care Teams Engraving Press Operator Relationship Specialty Start Date End Date Rebeca Garcia PA [address] [place] [phone] PCP - General 11/25/21 documented as of this encounter
--- OUTSIDE RECORDS SUMMARY | 2025-01-06 15:35 | XMS_ITS | Encounter Summary ---
Author Organization [facility] Address [address] [place] [address] Care Team Providers Care Rn Clinical Coordinator Name Role Phone Rebeca Garcia Primary Care Provider + Encounter Details Date Type Department Care Team (Late st Contact Info) Description 05/29/2023 Orders Only [facility] Memory Program - Medical Office Building [address], [place] [phone] Pradeep Yi MD [address] [facility] Medical Office Building, [address] [place] [address] Memory loss (Primary Dx) Social [...] learn more about your health please visit: https://www.[facility].org/medcenter/Pages/Wellness-Resources/Znmgmwzbk-Dmosdy-Gj sourc e-Center.aspx LDL < 100 Result Component Hyperlipidemia 56( 0 12:18 EST) No Maggie Andrade LPN HEMOGLOBIN A1C < 7.0 Result Component Type 2 diabetes mellitus ([facility]) 7.7(12/30/19 20 12:18 EST) No Maggie Andrade LPN documented as of this encounter Results * VITAMIN B12 (10/23/2023 14:46 EST) Vitamin B12 898 211 - 911 pg/mL 10/23/2023 18:31 EST [facility] Blood VENOUS BLOOD / Unknown Venipuncture / Unknown 10/23/2023 14:46 EST 10/23/2023 14:46 EST Pradeep Yi MD CHEMISTRY & BLOOD GAS ORDERABLE S Final Result Performing Organization Address City/[facility]/ZIP Co de Phone Number [facility] [address] [place] [address] * TSH (10/23/2023 14:46 EST) [facility] TSH 1.67 0.47 - 4.68 mIU/L 10/23/2023 17:24 EST [facility] Blood VENOUS BLOOD / Unknown Venipuncture / Unknown 10/23/2023 14:46 EST 10/23/2023 14:46 EST Narrative [facility] - 10/23/2023 17:24 EST The results of this assay can be falsely lowered due to the consumption of Biotin. Pradeep Yi MD CHEMISTRY & BLOOD GAS ORDERABLE S Final Result Performing Organization Address [facility]/ZIP Co de Phone Number [facility] [address] [place] [address] * SYPHILIS SEROLOGY (10/23/2023 14:46 EST) [facility] Syphilis Serology Negative Negative 10/24/2023 10:22 EST [facility] Blood VENOUS BLOOD / Unknown Venipuncture / Unknown 10/23/2023 14:46 EST 10/23/2023 14:46 EST Pradeep Yi MD IMMUNOLOGY AND SEROLOGY ORDERAB LES Final Result Performing Organization Address [facility] Co de Phone Number [facility] [address] [place] [address] * (ABNORMAL) COMPREHENSIVE METABOLIC PANEL (CMP) (10/23/2023 14:46 EST) [facility] Sodium 143 136 - 145 mmol/L 10/23/2023 16:49 EST [facility] Potassium 4.4 3.5 - 5.0 mmol/L 10/23/2023 16:49 [facility] Chloride 104 96 - 110 mmol/L 10/23/2023 16:49 [facility] CO2 Total 27 22 - 32 mmol/L 10/23/2023 16:49 [facility] Glucose 105(H) 70 - 99 mg/dl 10/23/2023 16:49 [facility] BUN 21 10 - 26 mg/dL 10/23/2023 16:49 [facility] Creatinine 0.84 0.66 - 1.25 mg/dL 10/23/2023 16:49 [facility] eGFR 96 >60 mL/min/1.7 3m2 10/23/2023 16:49 [facility] Total Protein 7.6 6.3 - 8.2 g/dL 10/23/2023 16:49 [facility] Albumin 4.6 3.4 - 4.9 g/dL 10/23/2023 16:49 [facility] Alkaline Phosphatase 66 38 - 126 U/L 10/23/2023 16:49 [facility] AST 30 15 - 46 U/L 10/23/2023 16:49 [facility] ALT 35 <50 U/L 10/23/2023 16:49 [facility] Bilirubin, Total 0.6 <1.4 mg/dL 10/23/20 16:49 [facility] Calcium 9.9 8.5 - 10.5 mg/dL 10/23/2023 16:49 [facility] Albumin/Globulin Ratio 1.5 1.0 - 2.5 g/dL 10/23/2023 16:49 [facility] Anion Gap 12 5 - 14 mmol/L 10/23/2023 16:49 [facility] Blood VENOUS BLOOD / Unknown Venipuncture / Unknown 10/23/2023 14:46 EST 10/23/2023 14:46 EST us Pradeep Yi MD CHEMISTRY & BLOOD GAS ORDERABLE S Final Result [facility] [address] [place] [address] * (ABNORMAL) COMPLETE BLOOD COUNT AND DIFFERENTIAL (10/23/2023 14:46 EST) WBC 6.80 4.00 - 10.40 K/cmm 10/23/2023 16:05 [facility] RBC 5.68 4.36 - 5.78 M/cmm 10/23/2023 16:05 [facility] Hemoglobin 17.9(H) 13.8 - 17.3 g/dL 10/23/2023 16:05 [facility] HCT 53.5(H) 39.5 - 50.2 % 10/23/2023 16:05 [facility] MCV 94 81 - 95 fL 10/23/2023 16:05 [facility] MCH 31.5 27.6 - 33.0 pg 10/23/2023 16:05 [facility] MCHC 33.5 32.8 - 36.4 g/dL 10/23/2023 16:05 [facility] RDW-CV 14.3(H) <14.2 % 10/23/2023 16:05 [facility] RDW-SD 49.6(H) <46.0 fl 10/23/2023 16:05 [facility] PLT 171 141 - 377 K/cmm 10/23/2023 16:05 [facility] MPV 11.3 9.5 - 12.7 fL 10/23/2023 16:05 [facility] % Neutrophils 52.4 % 10/23/2023 16:05 [facility] % Lymphocytes 36.8 % 10/23/2023 16:05 [facility] % Monocytes 8.4 % 10/23/2023 16:05 [facility] % Eosinophils 0.7 % 10/23/2023 16:05 [facility] % Basophils 0.7 % 10/23/2023 16:05 [facility] % Immature Grans 1.0 % 10/23/20 16:05 [facility] Absolute Neutrophils 3.56 2.20 - 8.85 K/cmm 10/23/2023 16:05 [facility] Absolute Lymphocytes 2.50 1.09 - 3.30 K/cmm 10/23/2023 16:05 [facility] Absolute Monocytes 0.57 0.10 - 0.80 K/cmm 10/23/2023 16:05 [facility] Absolute Eosinophils 0.05 0.03 - 0.61 K/cmm 10/23/2023 16:05 [facility] ABS Basophils 0.05 0.01 - 0.11 K/cmm 10/23/2023 16:05 [facility] Absolute Immature Grans 0.07(H) 0.00 - 0.06 K/cmm 10/23/2023 16:05 [facility] Type of Differential: Auto 10/23/2023 16:05 [facility] Blood VENOUS BLOOD / Unknown Venipuncture / Unknown 10/23/2023 14:46 EST 10/23/2023 14:46 EST us Pradeep Yi MD PACKAGES & DNA PROBE ORDERABLES Final Result Performing Organization Address City/State/[facility] Co de Phone Number [facility] [address] [place] [address] documented in this encounter Visit Diagnoses Diagnosis Memory loss- Primary documented in this encounter Care Teams Rn Clinical Coordinator Relationship Specialty Start Date End Date Rebeca Garcia PA [address] [place] [phone] PCP - General 11/25/21 documented as of this encounter
--- OUTSIDE RECORDS SUMMARY | 2025-01-06 15:35 | XMS_ITS | Encounter Summary ---
Author Organization [facility] Address [address] [place] [address] Care Team Providers Care Marketing Development Representative Name Role Phone Roxanna Hannah MD Primary Care Provider + Reason for Visit * Reason Comments Excisional Biopsy Pt reports for jacquelin Bx on right tenriism. Encounter Details Date Type Department Care Team (Late st Contact Info) Description 01/13/2020 9:15 EST Office Visit [address] [address] Roxanna Hannah MD [address] [place] [address] [phone] Skin lesion of face (Primary Dx); Hypertension, [...] Diagnosis: Suspicious lesion Post-operative Diagnosis: same Locations:right tenriism Indications: concern for SCC or BCC Anesthesia: [...] learn more about your health please visit: https://www[facility].org/medcenter/Pages/Wellness-Resources/Hpzdppxmh-Ttnluq-Ok sourc e-Center.aspx LDL < 100 Result Component Hyperlipidemia 56( 0 12:18 EST) No Maggie Andrade LPN HEMOGLOBIN A1C < 7.0 Result Component Type 2 diabetes mellitus ([facility]) 7.7(12/30/19 20 12:18 EST) No Maggie Andrade LPN documented as of this encounter Procedures Procedure Name Priority Date/Time Associated Diagnosis Comments SURGICAL PATHOLOGY Routine 01/13/2020 10 :04 EST Skin lesion of face documented in this encounter Results * SURGICAL PATHOLOGY (01/13/2020 10:04 EST) Final Diagnosis A. SKIN OF NONDENOMINATIONAL, RIGHT, SHAVE BIOPSY: - Seborrheic keratosis. 01/14/2020 16:17 [facility] at 1617 Microscopic Description The stratum corneum is thickened by compact and basketweave orthokeratosis with formation of horn pseudocysts. The epidermis is acanthotic with formation of broad and anastomosing trabeculae. The trabeculae are composed of basaloid keratinocytes with round uniform nuclei. The keratinocytes have a variable amount of melanin pigment. (Dr. Fox)/mathew 01/14/2020 16:17 [facility] Clinical History Right tenriism scaly raised 8mmX1 cm skin lesion, r/o SCC vs BCC vs AK 01/14/2020 16:17 [facility] Attestation By the signature below, the attending physician certifies that they have 1) personally conducted a gross and/or microscopic examination of the described specimen(s), and/or personally interpreted the results of laboratory testing of the described specimen(s), and 2) personally rendered or confirmed the above diagnosis. 01/14/2020 16:17 [facility] at 1617 Gross Description A. Received in formalin labelled with proper patient identification (initials M, G) and not otherwise specified is a shave biopsy of vu-white firm slightly granular papule (0.9 x 0.7 x 0.1 cm). The margin is inked blue. Trisected and submitted in A1. MIHRAB ALI 01/13/2020 19:59 01/14/2020 16:17 [facility] Scanned Images 01/14/2020 16:17 [facility] Tissue TISSUE SPECIMEN FROM SKIN / Unknown Collection, Other / Unknown 01/13/2020 10:04 EST 01/13/2020 10:05 EST us Roxanna Hannah MD PATHOLOGY ORDERABLES Fin al Result [facility] [address] [place] [address] documented in this encounter Visit Diagnoses Diagnosis [...] 11/05/2023 added in this encounter Care Teams Marketing Development Representative Relationship Specialty Start Date End Date Roxanna Hannah MD [address] [place] [phone] PCP - General 03/28/09 05/31/20 documented as of this encounter
--- OUTSIDE RECORDS SUMMARY | 2025-01-06 15:35 | XMS_ITS | Encounter Summary ---
Author Organization [facility] Address [address] [place] [address] Care Team Providers Care Professional Development Director Name Role Phone Roxanna Hannah MD Primary Care Provider + Reason for Visit * Reason Comments Other Encounter Details Date Type Department Care Team (Late st Contact Info) Description 11/26/2020 [facility] Medicine [address] [address] Roxanna Hannah MD [address] [place] [phone] Other Social History Tobacco Use Types Packs/Day [...] for 360 with 0 refills Preferred Pharmacy: [facility] Is patient out of medication? Unknown Last [...] learn more about your health please visit: https://www.[facility].org/medcenter/Pages/Wellness-Resources/Crnbsortp-Hovgtb-Yn sourc e-Center.aspx LDL < 100 Result Component Hyperlipidemia 56( 0 12:18 EST) No Maggie Andrade LPN HEMOGLOBIN A1C < 7.0 Result Component Type 2 diabetes mellitus ([facility]) 7.7(12/30/19 20 12:18 EST) No Maggie Andrade LPN documented as of this encounter Visit Diagnoses Not on filedocumented in this encounter Discontinued Medications Medication Sig Discontinue Reason Start Date End Da te metFORMIN (GLUCOPHAGE) 500 mg tablet Take 2 Tabs by mouth 2 times daily with breakfast and dinner. 01/13/2020 11/28/2020 documented as of this encounter Care Teams Professional Development Director Relationship Specialty Start Date End Date Roxanna Hannah MD [address] [place] [phone] PCP - General Family Medicine - Primary Care 09/12/20 12/08/20 documented as of this encounter
--- OUTSIDE RECORDS SUMMARY | 2025-01-06 15:35 | XMS_ITS | Encounter Summary ---
Author Organization [facility] Address [address] [place] [address] Care Team Providers Care Graining Press Operator Name Role Phone Roxanna Hannah MD Primary Care Provider + Reason for Visit * Reason Onset Date Comments Results 01/15/2020 Encounter Details Date Type Department Care Team (Late st Contact Info) Description 01/15/[address] [phone] Roxanna Hannah MD [address] [place] [address] [phone] Results Social History Tobacco Use Types Packs/Day [...] TC to patient Recent shave biopsy right alevism skin lesion benign jordon karatosis No further management indicated/needed Final Diagnosis A. SKIN OF UATSDIN, RIGHT, SHAVE BIOPSY: - Seborrheic keratosis. documented [...] learn more about your health please visit: https://www.[facility].org/medcenter/Pages/Wellness-Resources/Liazjnrde-Znmrpa-Zz sourc e-Center.aspx LDL < 100 Result Component Hyperlipidemia 56( 0 12:18 EST) No Maggie Andrade LPN HEMOGLOBIN A1C < 7.0 Result Component Type 2 diabetes mellitus ([facility]) 7.7(12/30/19 20 12:18 EST) No Maggie Andrade LPN documented as of this encounter Visit Diagnoses Not on filedocumented in this encounter Care Teams Graining Press Operator Relationship Specialty Start Date End Date Roxanna Hannah MD [address] [place] [phone] PCP - General 03/28/09 05/31/20 documented as of this encounter
--- OUTSIDE RECORDS SUMMARY | 2025-01-06 15:35 | XMS_ITS | Encounter Summary ---
Author Organization [facility] Address [address] [place] [address] Care Team Providers Care Tubing Mill Setter Name Role Phone Rebeca Garcia Primary Care Provider + Encounter Details Date Type Department Care Team (Late st Contact Info) Description 10/27/2021 Lab Requisition [facility] Pathology & Laboratory Medicine - [facility] [address] [place] [address] Outr Resulting Lab, Provider Social History Tobacco [...] about your health please visit: https://www.[facility].org/medcenter/Pages/Wellness-Resources/Lpfgmyeia-Xivmqf-Xa sourc e-Center.aspx LDL < 100 Result Component Hyperlipidemia 56( 0 12:18 EST) No Maggie Andrade LPN HEMOGLOBIN A1C < 7.0 Result Component Type 2 diabetes mellitus ([facility]) 7.7(12/30/19 20 12:18 EST) No Maggie Andrade LPN documented as of this encounter Procedures Procedure Name Priority Date/Time Associated Diagnosis Comments ZZCOVID-19 TEST [facility] PCR Today 10/26/2021 23:17 EST COVID-19 TESTING Routine 10/26/2021 23:1 7 EST documented in this encounter Results * COVID-19 TEST [facility] PCR (10/26/2021 23:17 EST) Swab 10/26/2021 23:1 7 EST 10/27/2021 18:04 EST us Provider Outr Resulting Lab MICROBIOLOGY - GENER AL ORDERABLES Final Result [facility] [address] [place] [address] * COVID-19 TESTING (10/26/2021 23:17 EST) COVID-19 rt-PCR Result Negative Negative 10/28/2021 16:45 EST [facility] Comment: This test has [...] developed and its performance characteristics determined by [facility]. It has not been cleared or [...] testing. This test is based on the [facility] COVID-19 Emergency Use Authorization (EUA) assay, with minor modification as defined by the FDA Performed on the [employer] 7 Pro RT-PCR System. Performing Lab [facility] 10/28/2021 16:45 EST [facility] Swab 10/26/2021 23:1 7 EST 10/27/2021 18:04 EST us Provider Outr Resulting Lab MICROBIOLOGY - GENER AL ORDERABLES Final Result [facility] [address] [place] [address] documented in this encounter Visit Diagnoses Not on filedocumented in this encounter Additional Health Concerns Infection Onset Date Last Indicated Resolved Time COVID-19 03/22/2022 03/22/2022 04/11/2022 22:1 5 EDT documented as of this encounter Care Teams Tubing Mill Setter Relationship Specialty Start Date End Date Rebeca Garcia PA [address] [place] [phone] PCP - General 11/25/21 documented as of this encounter
--- OUTSIDE RECORDS SUMMARY | 2025-01-06 15:35 | XMS_ITS | Encounter Summary ---
Author Organization [facility] Address [address] [place] [address] Care Team Providers Care Media Consultant Outside Sales Name Role Phone Unavailable Primary Care Provider Unavailabl e Reason for Visit * Reason Comments Other Encounter Details Date Type Department Care Team (Late st Contact Info) Description 02/23/2021 Refill [facility] Family Medicine - [address] [address] Roxanna Hannah MD [address] [place] [phone] Other Social History Tobacco Use Types Packs/Day [...] learn more about your health please visit: https://www[facility].org/medcenter/Pages/Wellness-Resources/Niqrqvqzb-Orxlsh-Hx sourc e-Center.aspx LDL < 100 Result Component Hyperlipidemia 56( 0 12:18 EST) No Maggie Andrade LPN HEMOGLOBIN A1C < 7.0 Result Component Type 2 diabetes mellitus ([facility]) 7.7(12/30/19 20 12:18 EST) No Maggie Andrade LPN documented as of this encounter Visit Diagnoses Not on filedocumented in this encounter
--- OUTSIDE RECORDS SUMMARY | 2025-01-06 15:35 | XMS_ITS | Encounter Summary ---
Author Organization [facility] Address [address] [place] [address] Care Team Providers Care Relief Manager Name Role Phone Rebeca Garcia Primary Care Provider + Encounter Details Date Type Department Care Team (Late st Contact Info) Description 12/15/2020 Lab Requisition [facility] Pathology & Laboratory Medicine - [facility] [address] [place] [address] Outr Resulting Lab, Provider Social History Tobacco [...] learn more about your health please visit: https://www.[facility].org/medcenter/Pages/Wellness-Resources/Krxmpvrog-Vgasnm-Aw sourc e-Center.aspx LDL < 100 Result Component Hyperlipidemia 56( 0 12:18 EST) No Maggie Andrade LPN HEMOGLOBIN A1C < 7.0 Result Component Type 2 diabetes mellitus ([facility]) 7.7(12/30/19 20 12:18 EST) No Maggie Andrade LPN documented as of this encounter Procedures Procedure Name Priority Date/Time Associated Diagnosis Comments ZZCOVID-19 TEST [facility] PCR Today 12/15/2020 9:00 EST COVID-19 TESTING Routine 12/15/2020 9:00 EST documented in this encounter Results * COVID-19 TEST [facility] PCR (12/15/2020 9:00 EST) Swab ENTIRE NASOPHARYNX / Unknown 12/15/2020 9:00 EST 12/15/2020 20:27 EST us Provider Outr Resulting Lab MICROBIOLOGY - GENER AL ORDERABLES Final Result Performing Organization Address [facility] Co de Phone Number [facility] [address] [place] [address] * COVID-19 TESTING (12/15/2020 9:00 EST) COVID-19 rt-PCR Result Negative Negative 12/16/2020 16:17 EST [facility] Comment: Negative results do not preclude 2019-nCoV infection and should not be used as the sole basis for treatment or other patient management decisions. Negative results must be combined with clinical observations, patient history, and epidemiological information. This test was developed and its performance characteristics determined by [facility]. It has not been cleared or [...] defined by the FDA Performed on the [employer] 7 Flex RT-PCR System. Performing Lab [facility] Lab 12/16/2020 16:17 EST [facility] Swab 12/15/2020 9:00 EST 12/15/2020 20:27 EST us Provider Outr Resulting Lab MICROBIOLOGY - GENER AL ORDERABLES Final Result Performing Organization Address City/[facility] Co de Phone Number [facility] [address] [place] [address] documented in this encounter Visit Diagnoses Not on filedocumented in this encounter Additional Health Concerns Infection Onset Date Last Indicated Resolved Time COVID-19 03/22/2022 03/22/2022 04/11/2022 22:1 5 EDT documented as of this encounter Care Teams Relief Manager Relationship Specialty Start Date End Date Rebeca Garcia PA [address] [place] [phone] PCP - General 11/25/21 documented as of this encounter
--- OUTSIDE RECORDS SUMMARY | 2025-01-06 15:35 | XMS_ITS | Encounter Summary ---
Author Organization [facility] Address [address] [place] [address] Care Team Providers Care Barbed Wire Machine Operator Name Role Phone Rebeca Garcia Primary Care Provider + Reason for Visit * Reason Comments Memory Loss * Referral (Routine) - Receiving Office to Obtain Authorization Specialty Diagnoses / Procedures Referred By Nela bravo Referred To Contact Psychology Diagnoses Memory loss Cerebral atrophy (HCC-CMS) History of seizures Rebeca Garcia PA [address] [place] [address] Phone: tel: fax: [facility] Memory Program - Medical Office Building [address] [place] [address] Phone: tel: fax: Referral ID Status Reason Start Date Expiration Date Visits Requested Visits Authorized [id number] Receiving Office to Obtain Authorization 1 1 Encounter Details Date Type Department Care Team (Late st Contact Info) Description 11/05/2023 13:00 EST Office Visit [facility] Memory Program - Medical Office Building [address] [place] [address] Hossein Fowler MD [address] [place] [address] [facility], [address] [place] [phone] Memory loss (Primary Dx) Social History Tobacco [...] Fowler MD - 11/05/2023 1300 EST [facility] MEMORY PROGRAM NEW PATIENT CONSULTATION NOTE - 11/05/2023 Presenting Problem: I was asked to see this patient because of progressive cognitive changes. Referral Source: I was asked to see this patient in consultation by AKOSUA Gardner. Informants: Mr. Curry and son-in-law Aakash, records provided for review, and review of [facility]. Patient Profile: Mr. Curry is a 68-year-old, left-handed man who was born in [place] and raised in [place], [place]. There is little known about his biological family history, as Mr. Curry was adopted. He was raised with his two adopted sisters, the oldest whom lives in [place]. He does not havemuch contact with his younger adopted sister. Who lives in [place]. Mr. Curry had two marriages that ended in divorce. He a third time, and his in December 2016 after 30 years of marriage. He is not currently in a relationship. He has one adult daughter who lives locally. Mr. Curry graduated from high school. 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 He retired at age 63. At present, he lives independently in [place]. As mentioned, Mr. Curry was adopted, and [...] He states that he has known his tsgfcj-vl-zvt for 20 years, andhe has not observed [...] also fine. Mr. Ortiz reports that his zyluuu-vp-roa remains completely independent in terms of basic [...] known for years. 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 Additionally, he attends his grandchildren's sporting events. Mr. Ortiz describes no concerns for depression, anxiety, anger, or personality changes. In general, he states that his hmpjol-ty-umv is usually in a good mood and is very level. Medical History, Problem List, Medications, Allergies, and Family History: These elements are reviewed and annotated/updated appropriately in [facility]. Past Medical History: Diagnosis Date Abnormal glucose tolerance test 03/09/2009 Allergic rhinitis 03/19/2007 Change in bowel habit 05/31/2023 Depression Erectile dysfunction Essential hypertension 10/24/2004 GERD (gastroesophageal reflux disease) 08/05/2002 Hyperlipidemia 01/31/2005 Impaired glucose tolerance 10/03/2011 Routine general medical examination at health care facility 08/05/2002 Routine history and physical examination of adult 08/05/2002 Seizure disorder ([facility]) 08/05/2002 Seizures ([facility]) Type 2 diabetes mellitus without complication, without long-term current use of insulin ([facility]) Past Surgical History: Procedure Laterality Date CHOLECYSTECTOMY R shoulder yael Dr. Terence Barrera A HYDROCELE EXCISION 02/23/2014 Dr. Canales SHOULDER ARTHROPLASTY 10/25/2012 left SHOULDER SURGERY s/p dislocation Patient Active Problem List Diagnosis Seizure disorder ([facility]) Gastroesophageal reflux disease Hypertension Hyperlipidemia Allergic rhinitis Erectile dysfunction Atypical chest pain Depression Anxiety Type 2 diabetes mellitus ([facility]) Polyarthropathy Hydrocele Obesity Tubular adenoma of colon Tinnitus Current Outpatient Medications Medication acetaminophen (TYLENOL) 650 mg tablet amLODIPine (NORVASC) 5 mg tablet aspirin 81 mg EC tablet atorvastatin (LIPITOR) 40 mg tablet canagliflozin (INVOKANA) 100 mg tablet divalproex (DEPAKOTE) 500 mg delayed release tablet fluticasone (FLONASE) 50 mcg/actuation nasal spray losartan (COZAAR) 100 mg tablet metFORMIN (GLUCOPHAGE) 500 mg tablet MULTIVITAMINS (MULTI-VITAMIN ORAL) [employer] oil omeprazole (PRILOSEC) 20 mg capsule [...] documentation via this note. Hossein Fowler MD Winch Derrick Operator cc: AKOSUA Chaidez documented in this encounter [...] learn more about your health please visit: https://www.[facility].org/medcenter/Pages/Wellness-Resources/Awwapbsqj-Ueknwy-Vb sourc e-Center.aspx LDL < 100 Result Component Hyperlipidemia 56( 0 12:18 EST) No Maggie Andrade LPN HEMOGLOBIN A1C < 7.0 Result Component Type 2 diabetes mellitus ([facility]) 7.7(12/30/19 20 12:18 EST) No [...] may reflect changes made after this encounter. [employer] oil Take by mouth daily. losartan (COZAAR) 100 mg tablet Take 1 Tablet by mouth daily. canagliflozin (INVOKANA) 100 mg tablet 0 Refill(s) 11/29/2022 added in this encounter Care Teams Barbed Wire Machine Operator Relationship Specialty Start Date End Date Rebeca Garcia PA [address] [place] [phone] PCP - General 11/25/21 documented as of this encounter
--- OUTSIDE RECORDS SUMMARY | 2025-01-06 15:35 | XMS_ITS | Encounter Summary ---
Author Organization [facility] Address [address] [place] [address] Care Team Providers Care Chief Radiology Name Role Phone Roxanna Hannah MD Primary Care Provider + Reason for Visit * Reason Onset Date Comments Medical Records 01/06/2020 Encounter Details Date Type Department Care Team (Late st Contact Info) Description 01/06/[address] [phone] Roxanna Hannah MD [address] [place] [phone] Medical Records Social History Tobacco Use Types [...] 1501 EST Spoke with medical records ay [facility] in [facility]. They willfax the ER report and chest xray result from 09/2019 to our office. * Telephone Encounter - Heydi Adams - 01/06/2020 1500 EST ----- Message from Roxanna Hannah MD sent at 12/30/2019 11:43 EST ----- Please get ED visit and CXR notes from 09/2019 [facility] documented in this encounter Plan of [...] learn more about your health please visit: https://www.[facility].org/medcenter/Pages/Wellness-Resources/Tcxmitpqx-Qpckme-Uz sourc e-Center.aspx LDL < 100 Result Component Hyperlipidemia 56( 0 12:18 EST) No Maggie Andrade LPN HEMOGLOBIN A1C < 7.0 Result Component Type 2 diabetes mellitus ([facility]) 7.7(12/30/19 20 12:18 EST) No Maggie Andrade LPN documented as of this encounter Visit Diagnoses Not on filedocumented in this encounter Care Teams Chief Radiology Relationship Specialty Start Date End Date Roxanna Hannah MD [address] [place] [phone] PCP - General 03/28/09 05/31/20 documented as of this encounter
--- OUTSIDE RECORDS SUMMARY | 2025-01-06 15:35 | XMS_ITS | Encounter Summary ---
Author Organization [facility] Address [address] [place] [address] Care Team Providers Care Electric Organ Inspector And Repairer Name Role Phone Rebeca Garcia Primary Care Provider + Encounter Details Date Type Department Care Team (Late st Contact Info) Description 03/23/2022 Lab Requisition [facility] Pathology & Laboratory Medicine - [facility] [address] [place] [address] Outr Resulting Lab, Provider Social History Tobacco [...] learn more about your health please visit: https://www.[facility].org/medcenter/Pages/Wellness-Resources/Cpfcwqqth-Gvhjep-Ry sourc e-Center.aspx LDL < 100 Result Component Hyperlipidemia 56( 0 12:18 EST) No Maggie Andrade LPN HEMOGLOBIN A1C < 7.0 Result Component Type 2 diabetes mellitus ([facility]) 7.7(12/30/19 20 12:18 EST) No Maggie Andrade LPN documented as of this encounter Procedures Procedure Name Priority Date/Time Associated Diagnosis Comments ZZCOVID-19 TEST [facility] PCR Today 03/22/2022 16:00 EDT COVID-19 TESTING Routine 03/22/2022 16:0 0 EDT documented in this encounter Results * COVID-19 TEST [facility] PCR (03/22/2022 16:00 EDT) Swab 03/22/2022 16:0 0 EDT 03/23/2022 16:54 EDT us Provider Outr Resulting Lab MICROBIOLOGY - GENER AL ORDERABLES Final Result Performing Organization Address [facility] de Phone Number [facility] [address] [place] [address] * (ABNORMAL) COVID-19 TESTING (03/22/2022 16:00 EDT) COVID-19 rt-PCR Result Positive( AA) Negative 03/24/2022 10:[address] [facility] Comment: This [...] was performed using the marlon SARS-CoV-2 assay ([employer] on the Marlon 6800 System Performing Lab Marlon 6800 [facility] 03/24/2022 10:[address] [facility] Swab 03/22/2022 16:0 0 EDT 03/23/2022 16:54 EDT us Provider Outr Resulting Lab MICROBIOLOGY - GENER AL ORDERABLES Final Result Performing Organization Address City/[facility] Co de Phone Number [facility] [address] [place] [address] documented in this encounter Visit Diagnoses Not on filedocumented in this encounter Additional Health Concerns Infection Onset Date Last Indicated Resolved Time COVID-19 03/22/2022 03/22/2022 04/11/2022 22:1 5 EDT documented as of this encounter Care Teams Electric Organ Inspector And Repairer Relationship Specialty Start Date End Date Rebeca Garcia PA [address] [place] [id number] PCP - General 11/25/21 documented as of this encounter
--- OUTSIDE RECORDS SUMMARY | 2025-01-06 15:35 | XMS_ITS | Encounter Summary ---
Author Organization [facility] Address [address] [place] [address] Care Team Providers Care Gas Appliance Mechanic Name Role Phone Rebeca Garcia Primary Care Provider + Encounter Details Date Type Department Care Team (Late st Contact Info) Description 07/10/2023 Orders Only [facility] Memory Program - Medical Office Building [address], [place] [phone] Hossein Fowler MD [address] [facility] Medical Office Building, [address] [place] [phone] Social History Tobacco Use Types [...] more about your health please visit: https://www.[facility].org/medcenter/Pages/Wellness-Resources/Bucjzbpif-Yxsjkw-Aw sourc e-Center.aspx LDL < 100 Result Component Hyperlipidemia 56( 0 12:18 EST) No Maggie Andrade LPN HEMOGLOBIN A1C < 7.0 Result Component Type 2 diabetes mellitus ([facility]) 7.7(12/30/19 20 12:18 EST) No Maggie Andrade LPN documented as of this encounter Visit Diagnoses Not on filedocumented in this encounter Care Teams Gas Appliance Mechanic Relationship Specialty Start Date End Date Rebeca Garcia PA [address] [place] [phone] PCP - General 11/25/21 documented as of this encounter
--- OUTSIDE RECORDS SUMMARY | 2025-01-06 15:35 | XMS_ITS | Encounter Summary ---
Author Organization [facility] Address [address] [place] [address] Care Team Providers Care Almond Pan Finisher Name Role Phone Roxanna Hannah MD Primary Care Provider + Encounter Details Date Type Department Care Team (Late st Contact Info) Description 12/30/[address] [address] Roxanna Hannah MD [address] [place] [phone] Social History Tobacco Use Types Packs/Day Years [...] more about your health please visit: https://www.[facility].org/medcenter/Pages/Wellness-Resources/Mtuvhocvp-Letbrs-Gm sourc e-Center.aspx LDL < 100 Result Component Hyperlipidemia 56( 0 12:18 EST) No Maggie Andrade LPN HEMOGLOBIN A1C < 7.0 Result Component Type 2 diabetes mellitus ([facility]) 7.7(12/30/19 20 12:18 EST) No Maggie Andrade LPN documented as of this encounter Visit Diagnoses Not on filedocumented in this encounter Care Teams Almond Pan Finisher Relationship Specialty Start Date End Date Roxanna Hannah MD [address] [place] [phone] PCP - General 03/28/09 05/31/20 documented as of this encounter
--- OUTSIDE RECORDS SUMMARY | 2025-01-06 15:35 | XMS_ITS | Encounter Summary ---
Author Organization [facility] Address [address] [place] [address] Care Team Providers Care Logistics Project Manager Name Role Phone Roxanna Hannah MD Primary Care Provider + Unknown, Provider Primary Care Provider Unava ilable Roxanna Hannah MD Primary Care Provider + Reason for Visit * Reason Onset Date Comments Epidemic Concern 03/23/2020 Encounter Details Date Type Department Care Team (Late st Contact Info) Description 03/23/[address] [address] Roxanna Hannah MD [address] [place] [phone] Epidemic Concern Social History Tobacco Use Types [...] doing well with no questions/concerns; currently out [facility]. Patient is able to get his [...] learn more about your health please visit: https://www.[facility].org/medcenter/Pages/Wellness-Resources/Mcednwxhh-Duzfxs-Id sourc e-Center.aspx LDL < 100 Result Component Hyperlipidemia 56( 0 12:18 EST) No Maggie Andrade LPN HEMOGLOBIN A1C < 7.0 Result Component Type 2 diabetes mellitus ([facility]) 7.7(12/30/19 20 12:18 EST) No Maggie Andrade LPN documented as of this encounter Visit Diagnoses Not on filedocumented in this encounter Care Teams Logistics Project Manager Relationship Specialty Start Date End Date Roxanna Hannah MD [address] [place] [phone] PCP - General 03/28/09 05/31/20 Unknown, Provider, [address] [place] [phone] PCP - General 06/01/20 09/11/20 Roxanna Hannah MD [address] [place] [phone] PCP - General Family Medicine - Primary Care 09/12/20 12/08/20 documented as of this encounter
--- OUTSIDE RECORDS SUMMARY | 2025-01-06 15:35 | XMS_ITS | Referral Summary ---
Author Organization [facility] Address [address] [place] [address] Care Team Providers Care Soup Person Name Role Phone Rebeca Garcia Primary Care Provider + Encounters Date Type Department Care Team Description 10/07/2024 Lab Requisition [facility] Pathology & Laboratory Medicine - [facility] [address] [place] [address] Outr Resulting Lab, Provider from Last 3 Months Allergies Active Allergy Reactions Criticality Noted Date Comments Carbamazepine Rash 08/25/2009 Phenytoin Sodium Extended 03/03/2019 [place] like a zombie. Lisinopril 03/03/2019 Depression Medications [...] Take 1 Tablet by mouth daily. Active [place] Oil oil Take by mouth daily. Active Active Problems Patient Care Coordination No te Formatting of this note migh t be different from the original. [facility] Memory Program BEATRIS scanned to [facility] on: 2023-11-05 Problem Noted Date Diagnosed Date Tinnitus 10/28/2023 Tubular adenoma of colon 10/21/2017 Overview (10/21/2017): High grade dysplasia 09/[address] Kan [facility] Obesity 12/27/2014 Hydrocele 03/10/2014 Polyarthropathy 11/06/2012 Type 2 diabetes mellitus ([facility]) 12/12/2011 Depression 10/30/2011 Anxiety 10/30/2011 Atypical chest pain 07/30/2007 Overview (05/31/2023): A. Admission in [facility] on 04/27/2007. Ruled out [place] and negative stress test at that time Allergic rhinitis 03/19/2007 Hyperlipidemia 01/31/2005 Hypertension 10/24/2004 Seizure disorder ([facility]) 08/05/2002 Overview (10/27/2012): Nocturnal grand mal [...] Author No 12/30/2019 11:25 EST Vaishali Rocha Plan of Treatment Not on file Goals [...] your health please visit: https://www.[facility].org/medcenter/Pages/Wellness-Resources/Ogkxqpgav-Wlutyp-Ez sourc e-Center.aspx LDL < 100 Result Component Hyperlipidemia 56( 0 12:18 EST) No Maggie Andrade LPN HEMOGLOBIN A1C < 7.0 Result Component Type 2 diabetes mellitus ([facility]) 7.7(12/30/19 20 12:18 EST) No Maggie Andrade LPN Procedures Procedure Name Priority Date/Time Associated Diagnosis Comments HEPATITIS C AB W REFLEX TO HCV RNA BY PCR Routine 10/06/2024 11:00 EST COMPREHENSIVE METABOLIC PANEL (CMP) Routine 10/23/2023 14:46 EST Memory loss URINE [id number] RATIO (ACR) Routine 12/30/2019 12:19 EST Type 2 diabetes mellitus without complication, without long-term current use of insulin ([facility]) HEMOGLOBIN A1C Routine 12/30/2019 12:18 EST Type 2 diabetes mellitus without complication, without long-term current use of insulin ([facility]) LIPID PROFILE (INCLUDES CHOLESTEROL, TRIGLYCERIDES, HDL, LDL) Routine 12/30/2019 12:18 EST Other hyperlipidemia COLONOSCOPY PROCEDURE Routine 05/12/2019 from Last 3 Months or Most Recently Relevant to Health Maintenance Results * HEPATITIS C AB W REFLEX TO HCV RNA BY PCR (10/06/2024 11:00 EST) Pathologist [facility] Hep C Antibody Negative Negative 10/07/2024 18:38 EST [facility] Blood VENOUS BLOOD / Unknown 10/06/2024 11:00 EST 10/07/2024 16:59 EST us Provider Outr Resulting Lab CHEMISTRY & BLOOD GA S ORDERABLES Final Result Performing Organization Address City/State/[facility] Co de Phone Number [facility] [address] [place] [address] * (ABNORMAL) COMPREHENSIVE METABOLIC PANEL (CMP) (10/23/2023 14:46 EST) Sodium 143 136 - 145 mmol/L 10/23/2023 16:49 [facility] Potassium 4.4 3.5 - 5.0 mmol/L 10/23/2023 16:49 [facility] Chloride 104 96 - 110 mmol/L 10/23/2023 16:49 [facility] CO2 Total 27 22 - 32 mmol/L 10/23/2023 16:49 [facility] Glucose 105(H) 70 - 99 mg/dl 10/23/2023 16:49 [facility] BUN 21 10 - 26 mg/dL 10/23/2023 16:49 [facility] Creatinine 0.84 0.66 - 1.25 mg/dL 10/23/2023 16:49 [facility] eGFR 96 >60 mL/min/1.7 3m2 10/23/2023 16:49 [facility] Total Protein 7.6 6.3 - 8.2 g/dL 10/23/2023 16:49 [facility] Albumin 4.6 3.4 - 4.9 g/dL 10/23/2023 16:49 [facility] Alkaline Phosphatase 66 38 - 126 U/L 10/23/2023 16:49 [facility] AST 30 15 - 46 U/L 10/23/2023 16:49 [facility] ALT 35 <50 U/L 10/23/2023 16:49 [facility] Bilirubin, Total 0.6 <1.4 mg/dL 10/23/20 16:49 [facility] Calcium 9.9 8.5 - 10.5 mg/dL 10/23/2023 16:49 [facility] Albumin/Globulin Ratio 1.5 1.0 - 2.5 g/dL 10/23/2023 16:49 [facility] Anion Gap 12 5 - 14 mmol/L 10/23/2023 16:49 [facility] Blood VENOUS BLOOD / Unknown Venipuncture / Unknown 10/23/2023 14:46 EST 10/23/2023 14:46 EST us Pradeep Yi MD CHEMISTRY & BLOOD GAS ORDERABLE S Final Result [facility] [address] [place] [address] * ALBUMIN, URINE (12/30/2019 12:19 EST) Albumin, Urine <0.6 See Note mg/dL 2019 18:48 [facility] Comment: NOTE: Reference range not established Creatinine, Urine 104.7 See Note mg/dL 12/30/2019 18:48 [facility] Comment: NOTE: Reference range not established Lab Urine Albumin to Creatinine Ratio <6 <30 ug/mg Creatinine 12/30/2019 18:48 [facility] Comment: Urine Albumin/Creatinine Ratio: Normal: <30 ug/mg Creatinine Moderately increased albuminuria: 30-30 ug/mg Creatinine [place] increased albuminuria: >300 ug/mg Creatinine Urine URINE SPECIMEN OBTAINED BY CLEAN CATCH PROCEDURE / Unknown Urine Collect / Unknown 12/30/2019 12:19 EST 12/30/2019 12:19 EST us Roxanna Hannah MD CHEMISTRY & BLOOD GAS OR DERABLES Final Result [facility] [address] [place] [address] * (ABNORMAL) HEMOGLOBIN A1C (12/30/2019 12:18 EST) Hemoglobin A1c 7.7(H) <5.7 % 12/31/2019 9:56 [facility] Comment: Glycemic Status References: [...] Est Avg Glucose 174 mg/dL 0 9:56 [facility] Comment: The eAG represents the A1c result expressed as average glucose in mg/dL. Blood VENOUS BLOOD / Unknown Venipuncture / Unknown 12/30/2019 12:18 EST 12/30/2019 12:19 EST us Roxanna Hannah MD CHEMISTRY & BLOOD GAS OR DERABLES Final Result [facility] [address] [place] [address] * LIPID PROFILE (INCLUDES CHOLESTEROL, TRIGLYCERIDES, HDL, LDL) (12/30/2019 12:18 EST) Cholesterol 116 See Note mg/dL 12/30/2019 18:03 [facility] Comment: Acceptable: ?<200 mg/dL Borderline High: 200-239 mg/dL High: ?> or = 240 mg/dL HDL 25 See Note mg/dL 12/30/2019 18:03 [facility] Comment: Low: ? <40 mg/dL Normal: ??40-60 mg/dL High: ?>60 mg/dL LDL, Calculated 56 See Note mg/dL 12/30/2019 18:03 [facility] Comment: Optimal: ? <100 mg/dL Near Optimal: ?100-129 mg/dL Borderline High: 130-159 mg/dL High: ?160-189 mg/dL Very High: ? > or = 190 mg/dL Triglyceride 177 See Note mg/dL 12/30/2019 18:03 [facility] Comment: Normal: ? <150 mg/dL Borderline High: ??150 - 199 mg/dL High: ? 200 - 499 mg/dL Very High: ?> or = 500 mg/dL Chol/HDL Ratio 4.6 See Note 12/30/2019 18:03 [facility] Comment: No reference range has been established for CHOL/HDL ratio. Non HDL Cholesterol 91 See Note mg/dL 12/30/2019 18:03 [facility] Comment: Desirable: ?<130 mg/dL Borderline High: ??130-159 mg/dL High: ? 160-189 mg/dL Very High: ?> or = 190 mg/dL Blood VENOUS BLOOD / Unknown Venipuncture / Unknown 12/30/2019 12:18 EST 12/30/2019 12:19 EST Narrative [facility] - 12/30/2019 18:03 EST 3 Roxanna Hannah MD CHEMISTRY & BLOOD GAS OR DERABLES Final Result [facility] [address] [place] [address] * COLONOSCOPY PROCEDURE (05/12/2019) [facility] Colonoscopy [facility] Colonoscopy, External [facility] Comment:The cecum, ascending , transverse, descending, sigmoid colon and rectum all appeared normal. No abnormalities in the rectum. Return for colonoscopy in 3 years or as needed for any changes. Anatomical Region Laterality Modality Endoscopy 05/12/2019 Historical Provider GI PROCEDURE ORDERABLES F inal Result from Last 3 Months or Most Recently Relevant to Health Maintenance Insurance [facility] [id number] [address] Advance Directives For more information, please contact: [phone] Documents on File Type Date Recorded Patient Avionics System Engineer Expl anation Advance Directive 04/29/2018 14:58 * Full Code (Latest Code Status on File) Date Activated Date Inactivated Comments 03/10/2014 10:34 03/10/2014 15:25 * Full Code Date Activated Date Inactivated Comments 11/06/2012 15:04 11/07/2012 14:58 Care Teams Soup Person Relationship Specialty Start Date End Date Rebeca Garcia PA [address] [place] [id number] PCP - General 11/25/21
--- OUTSIDE RECORDS SUMMARY | 2025-01-06 15:35 | XMS_ITS | Encounter Summary ---
Author Organization [facility] Address [address] [place] [address] Care Team Providers Care Harness Inspector Name Role Phone Rebeca Garcia Primary Care Provider + Encounter Details Date Type Department Care Team (Late st Contact Info) Description 07/09/2022 Lab Requisition [facility] Pathology & Laboratory Medicine - [facility] [address] [place] [address] Outr Resulting Lab, Provider Social History Tobacco [...] learn more about your health please visit: https://www[facility].org/medcenter/Pages/Wellness-Resources/Jorgnqiga-Kmdxmq-Nl sourc e-Center.aspx LDL < 100 Result Component Hyperlipidemia 56( 0 12:18 EST) No Maggie Andrade LPN HEMOGLOBIN A1C < 7.0 Result Component Type 2 diabetes mellitus ([facility]) 7.7(12/30/19 20 12:18 EST) No Maggie nAdrade LPN documented as of this encounter Procedures Procedure Name Priority Date/Time Associated Diagnosis Comments GIARDIA AND CRYPTOSPORIDIUM ANTIGENS Routine 07/06/2022 15:00 EDT documented in this encounter Results * GIARDIA AND CRYPTOSPORIDIUM ANTIGENS (07/06/2022 15:00 EDT) Giardia and Cryptosporidium Cryptosporidium Antigen Neg and Giardia Antigen Neg Cryptosporidium Antigen Neg and Giardia Antigen Neg 2 14:13 EDT [facility] Feces SPECIMEN FROM RECTUM / Unknown 07/06/2022 15:00 EDT 07/09/2022 19:00 EDT us Provider Outr Resulting Lab MICROBIOLOGY - GENER AL ORDERABLES Final Result [facility] [address] [place] [address] documented in this encounter Visit Diagnoses Not on filedocumented in this encounter Care Teams Harness Inspector Relationship Specialty Start Date End Date Rebeca Garcia PA [address] [place] [id number] PCP - General 11/25/21 documented as of this encounter
--- OUTSIDE RECORDS SUMMARY | 2025-01-06 15:35 | XMS_ITS | Encounter Summary ---
Author Organization [facility] Address [address] [place] [address] Care Team Providers Care Head Cashier Name Role Phone Rebeca Garcia Primary Care Provider + Reason for Visit * Reason Comments Memory Loss * Referral (Routine) - Receiving Office to Obtain Authorization Specialty Diagnoses / Procedures Referred By Nela bravo Referred To Contact Psychology Diagnoses Memory loss Cerebral atrophy (HCC-CMS) History of seizures Rebeca Garcia PA [address] [place] [address] Phone: tel: fax: [facility] Memory Program - Medical Office Building [address] [place] [address] Phone: tel: fax: Referral ID Status Reason Start Date Expiration Date Visits Requested Visits Authorized [id number] Receiving Office to Obtain Authorization 1 1 Encounter Details Date Type Department Care Team (Late st Contact Info) Description 10/23/2023 13:00 EST Office Visit [facility] Memory Program - Medical Office Building [address] [place] [id number] Praveena Grimm, PhD [address] [facility] [address] [place] [address] Memory loss (Primary Dx) Social [...] at the Medical Office Building on the [facility]. PATIENT PROFILE: Mr. Curry is a 68-year-old, left-handed man who was born in [place] and raised in [place], [place]. There is little known about his biological family history, as Mr. Curry was adopted. He was raised with his two adopted sisters, the oldest whom lives in [place]. 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 At present, he lives independently in [place]. As mentioned, Mr. Curry was adopted, and [...] is referred to the [facility] in the [...] He states that he has known his vfprig-tp-bxh for 20 years, andhe has not observed [...] also fine. Mr. Ortiz reports that his pvscuu-cu-mwu remains completely independent in terms of basic [...] the summer, he lives at the family [place] and has a number of friends there who he has known for years. 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 Additionally, he attends his grandchildren's sporting events. Mr. Ortiz describes no concerns for depression, anxiety, anger, or personality changes. In general, he states that his qjbiuj-di-hlu is usually in a good mood and [...] able to namethe current U.[place]. President, the Concession Manager, and the Governor of [place]. 2. Attention/processing: He could repeat 6 digits [...] Examination - 60 minutes (1 unit of 05935) provided by neuropsychologist; Professional services time - 80 minutes (1 unit of 38838) provided by neuropsychologist; Testing by stage technician - 78 minutes [place]1 [place] 57394 and 2 unit(s) of 20537) consisting of administration and scoring. Praveena Grimm, [...] learn more about your health please visit: https://www.[facility].org/medcenter/Pages/Wellness-Resources/Wyrygkpky-Jjhhsh-Sr sourc e-Center.aspx LDL < 100 Result Component Hyperlipidemia 56( 0 12:18 EST) No Maggie Andrade LPN HEMOGLOBIN A1C < 7.0 Result Component Type 2 diabetes mellitus ([facility]) 7.7(12/30/19 20 12:18 EST) No Maggie Andrade LPN documented as of this encounter Visit Diagnoses Diagnosis Memory loss- Primary documented in this encounter Care Teams Head Cashier Relationship Specialty Start Date End Date Rebeca Garcia PA [address] [place] [id number] PCP - General 11/25/21 documented as of this encounter
--- OUTSIDE RECORDS SUMMARY | 2025-01-06 15:35 | XMS_ITS | Clinical Summary ---
Author Organization [facility] Address [address] [place] [address] Care Team Providers Care Human Resources Operations Manager Name Role Phone Rebeca Garcia Primary Care Provider + Allergies Active Allergy Reactions Criticality Noted Date Comments Carbamazepine Rash 08/25/2009 Phenytoin Sodium Extended 03/03/2019 [place] like a zombie. Lisinopril 03/03/2019 Depression Medications [...] Take 1 Tablet by mouth daily. Active Morrill Oil oil Take by mouth daily. Active Active Problems Patient Care Coordination No te Formatting of this note migh t be different from the original. [facility] Memory Program BEATRIS scanned to [facility] on: 2023-11-05 Problem Noted Date Diagnosed Date Tinnitus 10/28/2023 Tubular adenoma of colon 10/21/2017 Overview (10/21/2017): High grade dysplasia 09/[address] Kan [facility] Obesity 12/27/2014 Hydrocele 03/10/2014 Polyarthropathy 11/06/2012 Type 2 diabetes mellitus ([facility]) 12/12/2011 Depression 10/30/2011 Anxiety 10/30/2011 Atypical chest pain 07/30/2007 Overview (05/31/2023): [facility]. Ruled out SD and negative stress test at that time Allergic rhinitis 03/19/2007 Hyperlipidemia 01/31/2005 Hypertension 10/24/2004 Seizure disorder ([facility]) 08/05/2002 Overview (10/27/2012): Nocturnal grand mal F/U W. Dr. Herrera Gastroesophageal reflux disease 08/05/2002 Erectile dysfunction Resolved Problems Problem Noted Date Diagnosed Date Resolved Date Change in bowel habit 05/31/2023 05/31/20232022 Impaired glucose tolerance 10/03/2011 0 04/29/2018 Abnormal glucose tolerance test 03/09/2009 04/10/2016 Routine history and physical examination of adult 08/05/2002 11/05/2023 Encounters Date Type Department Care Team Description 10/07/2024 Lab Requisition [facility] Pathology & Laboratory Medicine - [address] [address] Outr Resulting Lab, Provider from Last 3 Months Immunizations Name Administration Dates Next Due DT [...] Site/Laterality Comments CHOLECYSTECTOMY R shoulder yael Dr. Pratt . A SHOULDER SURGERY s/p dislocation SHOULDER ARTHROPLASTY 10/25/2012 left HYDROCELE EXCISION 02/23/2014 Dr. Canales Medical History Medical History Date Comments Erectile dysfunction Abnormal glucose tolerance test 03/09/2009 Allergic rhinitis 03/19/2007 Hyperlipidemia 01/31/2005 Essential hypertension 10/24/2004 Seizure disorder ([facility]) 08/05/2002 Routine general medical examination at [facility] 08/05/2002 GERD (gastroesophageal reflux disease) 2 Seizures ([facility]) Impaired glucose tolerance 10/03/2011 Type 2 diabetes mellitus wit hout complication, without long-term current use of insulin ([facility]) Depression Change in bowel habit 05/31/2023 Routine history and physical examination of [facility] 08/05/2002 Family History Medical History Relation Comments [...] Immunization Completed 07/11/2011 Hepatitis C Screen Completed 10/06/2024, 03/05/2017 Goals Goal Patient Goal Type Associated [...] learn more about your health please visit: https://[email or web address]org/medcenter/Pages/Wellness-Resources/Nzhaefsnm-Brkart-Sg [facility] e-Center.aspx LDL < 100 Result Component Hyperlipidemia 56( 0 12:18 EST) No [place], Maggie, INFORMATION TECHNOLOGY AUDIT MANAGER HEMOGLOBIN A1C < 7.0 Result Component Type 2 diabetes mellitus ([facility]-CMS) 7.7(12/30/19 20 12:18 EST) No [place], Maggie, INFORMATION TECHNOLOGY AUDIT MANAGER Procedures Procedure Name Priority Date/Time Associated Diagnosis Comments HEPATITIS C AB W REFLEX TO HCV RNA BY PCR Routine 10/06/2024 11:00 EST COMPREHENSIVE METABOLIC PANEL (CMP) Routine 10/23/2023 14:46 EST Memory loss URINE [id number] RATIO (ACR) Routine 12/30/2019 12:19 EST Type 2 diabetes mellitus without complication, without long-term current use of insulin ([facility]) HEMOGLOBIN A1C Routine 12/30/2019 12:18 EST Type 2 diabetes mellitus without complication, without long-term current use of insulin ([facility]) LIPID PROFILE (INCLUDES CHOLESTEROL, TRIGLYCERIDES, HDL, LDL) Routine 12/30/2019 12:18 EST Other hyperlipidemia COLONOSCOPY PROCEDURE Routine 05/12/2019 from Last 3 Months or Most Recently Relevant to Health Maintenance Results * HEPATITIS C AB W REFLEX TO HCV RNA BY PCR (10/06/2024 11:00 EST) Hep C Antibody Negative Negative 10/07/2024 18:38 EST [facility] Blood VENOUS BLOOD / Unknown 10/06/2024 11:00 EST 10/07/2024 16:59 EST us Provider Outr Resulting Lab CHEMISTRY & BLOOD GA S ORDERABLES Final Result [facility] [address] [place] [address] * (ABNORMAL) COMPREHENSIVE METABOLIC PANEL (CMP) (10/23/2023 14:46 EST) Sodium 143 136 - 145 mmol/L 10/23/2023 16:49 [facility] Potassium 4.4 3.5 - 5.0 mmol/L 10/23/2023 16:49 [facility] Chloride 104 96 - 110 mmol/L 10/23/2023 16:49 [facility] CO2 Total 27 22 - 32 mmol/L 10/23/2023 16:49 [facility] Glucose 105(H) 70 - 99 mg/dl 10/23/2023 16:49 [facility] BUN 21 10 - 26 mg/dL 10/23/2023 16:49 [facility] Creatinine 0.84 0.66 - 1.25 mg/dL 10/23/2023 16:49 [facility] eGFR 96 >60 mL/min/1.7 3m2 10/23/2023 16:49 [facility] Total Protein 7.6 6.3 - 8.2 g/dL 10/23/2023 16:49 [facility] Albumin 4.6 3.4 - 4.9 g/dL 10/23/2023 16:49 [facility] Alkaline Phosphatase 66 38 - 126 U/L 10/23/2023 16:49 [facility] AST 30 15 - 46 U/L 10/23/2023 16:49 [facility] ALT 35 <50 U/L 10/23/2023 16:49 [facility] Bilirubin, Total 0.6 <1.4 mg/dL 10/23/20 16:49 [facility] Calcium 9.9 8.5 - 10.5 mg/dL 10/23/2023 16:49 [facility] Albumin/Globulin Ratio 1.5 1.0 - 2.5 g/dL 10/23/2023 16:49 [facility] Anion Gap 12 5 - 14 mmol/L 10/23/2023 16:49 [facility] Blood VENOUS BLOOD / Unknown Venipuncture / Unknown 10/23/2023 14:46 EST 10/23/2023 14:46 EST us Pradeep Yi MD CHEMISTRY & BLOOD GAS ORDERABLE S Final Result Performing Organization Address [facility]/ZIP Co de Phone Number [facility] [address] [place] [address] * ALBUMIN, URINE (12/30/2019 12:19 EST) Albumin, Urine <0.6 See Note mg/dL 2019 18:48 EST [facility] Comment: NOTE: Reference range not established Creatinine, Urine 104.7 See Note mg/dL 12/30/2019 18:48 EST [facility] Comment: NOTE: Reference range not established Lab Urine Albumin to Creatinine Ratio <6 <30 ug/mg Creatinine 12/30/2019 18:48 EST [facility] Comment: Urine Albumin/Creatinine Ratio: Normal: <30 ug/mg Creatinine Moderately increased albuminuria: 30-30 ug/mg Creatinine [place] increased albuminuria: >300 ug/mg Creatinine Urine URINE SPECIMEN OBTAINED BY CLEAN CATCH PROCEDURE / Unknown Urine Collect / Unknown 12/30/2019 12:19 EST 12/30/2019 12:19 EST Roxanna Hannah MD CHEMISTRY & BLOOD GAS OR DERABLES Final Result Performing Organization Address [facility] de Phone Number [facility] [address] [place] [address] * (ABNORMAL) HEMOGLOBIN A1C (12/30/2019 12:18 EST) Hemoglobin A1c 7.7(H) <5.7 % 12/31/2019 9:56 EST [facility] Comment: Glycemic Status References: [...] Avg Glucose 174 mg/dL 0 9:56 [facility] Comment: The eAG represents the A1c result expressed as average glucose in mg/dL. Blood VENOUS BLOOD / Unknown Venipuncture / Unknown 12/30/2019 12:18 EST 12/30/2019 12:19 EST us Roxanna Hannah MD CHEMISTRY & BLOOD GAS OR DERABLES Final Result [facility] [address] [place] [address] * LIPID PROFILE (INCLUDES CHOLESTEROL, TRIGLYCERIDES, HDL, LDL) (12/30/2019 12:18 EST) Cholesterol 116 See Note mg/dL 12/30/2019 18:03 [facility] Comment: Acceptable: ?<200 mg/dL Borderline High: 200-239 mg/dL High: ?> or = 240 mg/dL HDL 25 See Note mg/dL 12/30/2019 18:03 [facility] Comment: Low: ? <40 mg/dL Normal: ??40-60 mg/dL High: ?>60 mg/dL LDL, Calculated 56 See Note mg/dL 12/30/2019 18:03 [facility] Comment: Optimal: ? <100 mg/dL Near Optimal: ?100-129 mg/dL Borderline High: 130-159 mg/dL High: ?160-189 mg/dL Very High: ? > or = 190 mg/dL Triglyceride 177 See Note mg/dL 12/30/2019 18:03 [facility] Comment: Normal: ? <150 mg/dL Borderline High: ??150 - 199 mg/dL High: ? 200 - 499 mg/dL Very High: ?> or = 500 mg/dL Chol/HDL Ratio 4.6 See Note 12/30/2019 18:03 EST [facility] Comment: No reference range has been established for CHOL/HDL ratio. Non HDL Cholesterol 91 See Note mg/dL 12/30/2019 18:03 EST [facility] Comment: Desirable: ?<130 mg/dL Borderline High: ??130-159 mg/dL High: ? 160-189 mg/dL Very High: ?> or = 190 mg/dL Blood VENOUS BLOOD / Unknown Venipuncture / Unknown 12/30/2019 12:18 EST 12/30/2019 12:19 EST Narrative [facility] - 12/30/2019 18:03 EST 3 Roxanna Hannah MD CHEMISTRY & BLOOD GAS OR DERABLES Final Result [facility] [address] [place] [address] * COLONOSCOPY PROCEDURE (05/12/2019) Colonoscopy [facility] Colonoscopy, External [facility] Comment:The cecum, ascending , [...] Advance Directives For more information, please contact: [phone] Documents on File Type Date Recorded Patient Director Of Hemophilia Expl anation Advance Directive 04/29/2018 14:58 * Full Code (Latest Code Status on File) Date Activated Date Inactivated Comments 03/10/2014 10:34 03/10/2014 15:25 * Full Code Date Activated Date Inactivated Comments 11/06/2012 15:04 11/07/2012 14:58 Care Teams Human Resources Operations Manager Relationship Specialty Start Date End Date Rebeca Garcia PA [address] [place] [id number] PCP - General 11/25/21
--- OUTSIDE RECORDS SUMMARY | 2025-01-06 15:35 | XMS_ITS | Encounter Summary ---
Author Organization [facility] Address [address] [place] [address] Care Team Providers Care Newspaper Clipper Name Role Phone Rebeca Garcia Primary Care Provider + Encounter Details Date Type Department Care Team (Late st Contact Info) Description 09/07/2021 Lab Requisition [facility] Pathology & Laboratory Medicine - [facility] [address] [place] [address] Outr Resulting Lab, Provider Social History Tobacco [...] more about your health please visit: [email or web address]/medcenter/Pages/Wellness-Resources/Pdhhlbpop-Nzpavy-Ku sourc e-Center.aspx LDL < 100 Result Component Hyperlipidemia 56( 0 12:18 EST) No Maggie Andrade LPN HEMOGLOBIN A1C < 7.0 Result Component Type 2 diabetes mellitus ([facility]) 7.7(12/30/19 20 12:18 EST) No Maggie Andrade LPN documented as of this encounter Procedures Procedure Name Priority Date/Time Associated Diagnosis Comments ZZCOVID-19 TEST [facility] PCR Today 09/06/2021 14:30 EDT COVID-19 TESTING Routine 09/06/2021 14:3 0 EDT documented in this encounter Results * COVID-19 TEST [facility] PCR (09/06/2021 14:30 EDT) Swab ENTIRE NASOPHARYNX / Unknown 09/06/2021 14:30 EDT 09/07/2021 16:09 EDT us Provider Outr Resulting Lab MICROBIOLOGY - GENER AL ORDERABLES Final Result [facility] [address] [place] [address] * COVID-19 TESTING (09/06/2021 14:30 EDT) COVID-19 rt-PCR Result Negative Negative 09/08/2021 21:[address] [facility] Comment: This test has [...] developed and its performance characteristics determined by [facility]. It has not been cleared or approved [...] testing. This test is based on the [facility] COVID-19 Emergency Use Authorization (EUA) assay, with minor modification as defined by the FDA Performed on the [employer] 7 Pro RT-PCR System. Performing Lab [place] [facility] 09/08/2021 21:[address] [facility] Swab 09/06/2021 14:3 0 EDT 09/07/2021 16:09 EDT us Provider Outr Resulting Lab MICROBIOLOGY - GENER AL ORDERABLES Final Result [facility] [address] [place] [address] documented in this encounter Visit Diagnoses Not on filedocumented in this encounter Additional Health Concerns Infection Onset Date Last Indicated Resolved Time COVID-19 03/22/2022 03/22/2022 04/11/2022 22:1 5 EDT documented as of this encounter Care Teams Newspaper Clipper Relationship Specialty Start Date End Date Rebeca Garcia PA [address] [place] [id number] PCP - General 11/25/21 documented as of this encounter
--- OUTSIDE RECORDS SUMMARY | 2025-01-06 15:35 | XMS_ITS | Encounter Summary ---
Author Organization [facility] Address [address] [place] [address] Care Team Providers Care Barrel Inspector Tight Name Role Phone Unavailable Primary Care Provider Unavailabl e Reason for Visit * Reason Onset Date Comments Patient Outreach 12/09/2020 Encounter Details Date Type Department Care Team (Late st Contact Info) Description 12/09/2020 Telephone [facility] Medicine [address] [address] Roxanna Hannah MD [address] [place] [phone] Patient Outreach Social History Tobacco Use Types [...] Encounter - Maggie Andrade LPN - 12/09/2020 4744 EST Pt. Moved to [place], [place] and is no longer a pt. [...] Active General On track(2019 8:42 EST) No Roaxnna Hannah MD Note: Being Active Goal: continue to be active The patient's confidence level, sources of support and barriers to change were assessed. Pertinent information is documented in the visit encounter. Counseling was provided to assess readiness, confidence and/or barriers to self-care. To learn more about your health please visit: https://[email or web address].org/medcenter/Pages/Wellness-Resources/Dptajmknd-Mzatod-Vc sourc e-Center.aspx LDL < 100 Result Component Hyperlipidemia 56( 0 12:18 EST) No Maggie Andrade LPN HEMOGLOBIN A1C < 7.0 Result Component Type 2 diabetes mellitus ([facility]) 7.7(12/30/19 20 12:18 EST) No Maggie Andrade, ALE documented as of this encounter Visit Diagnoses Not on filedocumented in this encounter
--- OUTSIDE RECORDS SUMMARY | 2025-01-06 15:35 | XMS_ITS | Encounter Summary ---
Author Organization [facility] Address [address] [place] [address] Care Team Providers Care Caretaker Resort Name Role Phone Roxanna Hannah MD Primary Care Provider + Reason for Visit * Reason Onset Date Comments Medications Refill 09/12/2020 Encounter Details Date Type Department Care Team (Late st Contact Info) Description 09/12/2020 Refill [facility] Medicine [address] [address] Roxanna Hannah MD [address] [place] [address] [phone] Medications Refill Social History Tobacco Use Types [...] Hydrochlorothiazide 25 mg #90 w/3R Preferred Pharmacy: [facility] Is patient out of medication? No Last [...] about your health please visit: https://www.[facility].org/medcenter/Pages/Wellness-Resources/Fyytdktqk-Czznte-Nm sourc e-Center.aspx LDL < 100 Result Component Hyperlipidemia 56( 0 12:18 EST) No Maggie Andrade LPN HEMOGLOBIN A1C < 7.0 Result Component Type 2 diabetes mellitus ([facility]) 7.7(12/30/19 20 12:18 EST) No Maggie Andrade LPN documented as of this encounter Visit Diagnoses Not on filedocumented in this encounter Discontinued Medications Medication Sig Discontinue Reason Start Date End Da te hydroCHLOROthiazide (HYDRODIURIL) 25 mg tablet take 1 tablet by mouth once daily Reorder 03/31/2019 09/12/2020 documented as of this encounter Care Teams Caretaker Resort Relationship Specialty Start Date End Date Roxanna Hannah MD [address] [place] [phone] PCP - General Family Medicine - Primary Care 09/12/20 12/08/20 documented as of this encounter
--- OUTSIDE RECORDS SUMMARY | 2025-01-06 15:35 | XMS_ITS | Encounter Summary ---
Author Organization Health system Address [address] [place] [address] Care Team Providers Care Coordinator Of Placement Name Role Phone Roxanna Hannah MD Primary Care Provider + Reason for Visit * Reason Comments Skin Lesion Pt complains of lesi on on right gnosticist. It has been present for several years but recently changed. Encounter Details Date Type Department Care Team (Late st Contact Info) Description 12/30/2019 11:30 EST Office Visit [address] [phone] Roxanna Hannah MD [address] [place] [address] [phone] Skin lesion of face (Primary Dx); Type 2 diabetes mellitus without complication, without long-term current use of insulin ([facility]); Essential hypertension; Other hyperlipidemia; Seizure disorder ([facility]) Social History Tobacco Use Types Packs/Day Years [...] Lesion Pt complains of lesion on right gnosticist. It has been present for several years but recently changed. HPI Here for acute visit but also overdue for DM, HTN and HLD management Right gnosticist skin lesion Has had for years Now changing, larger, more scaley Not itchy or bleeding DM - chronic, on Metformin 500 mg BID Last HgA1C > 8 in 02/2019 HTN - chronic for years On Norvasc 2.5 mg and HCTZ 25 mg Was on Lisinopril in past, [id number] state had mood changes/depressed mood on the ACEi (resolved when he stopped the Rx) This time was around of however No chest pain, SOB, leg swelling Lives half year in [facility], back in this area in summer HLD - on Lipitor 40 mg Chronic No myalgias Seizure D/O - Chronic No recent seizure activity on Depakote for this Patient Active Problem List Diagnosis ??? Routine history and physical examination of adult ??? Seizure disorder ([facility]) ??? Gastroesophageal reflux disease ??? Essential hypertension ??? Hyperlipidemia ??? Allergic rhinitis ??? Male erectile disorder ??? Atypical chest pain ??? Depression ??? Anxiety ??? Type 2 diabetes mellitus without complication, without long-term current use of insulin ([facility]) ??? Unspecified polyarthropathy or polyarthritis, shoulder region [...] facility 08/05/2002 ??? Seizure disorder ([facility]) 08/05/2002 ??? Seizures ([facility]) ??? Type 2 diabetes mellitus without complication, without long-term current use of insulin ([facility]) Current Outpatient Medications on File Prior to [...] Allergen Reactions ??? Dilantin [Phenytoin Sodium Extended] [place] like a zombie. ??? Lisinopril Depression ??? [...] complication, without long-term current use of insulin ([facility]) On Metformin 500 mg BID Due for [...] (INCLUDES CHOLESTEROL, TRIGLYCERIDES, HDL, LDL) Seizure disorder ([facility]) Seizure free Depakote level today - VALPROIC [...] more about your health please visit: https://www.[facility].org/medcenter/Pages/Wellness-Resources/Vghetmsnt-Zfgdsh-Yq sourc e-Center.aspx LDL < 100 Result Component Hyperlipidemia 56( 0 12:18 EST) No Maggie Andrade, DIRECTOR OF MANAGED SERVICES HEMOGLOBIN A1C < 7.0 Result Component Type 2 diabetes mellitus ([facility]) 7.7(12/30/19 20 12:18 EST) No Maggie Andrade LPN documented as of this encounter Procedures Procedure Name Priority Date/Time Associated Diagnosis Comments URINE [id number] NE RATIO (ACR) Routine 12/30/2019 12:19 EST Type 2 diabetes mellitus without complication, without long-term current use of insulin ([facility]) HEMOGLOBIN A1C Routine 12/30/2019 12:18 EST Type 2 diabetes mellitus without complication, without long-term current use of insulin ([facility]) VALPROIC ACID LEVEL Routine 12/30/2019 1 2:18 EST Seizure disorder ([facility]) LIPID PROFILE (INCLUDES CHOLESTEROL, TRIGLYCERIDES, HDL, LDL) Routine 12/30/2019 12:18 EST Other hyperlipidemia BASIC METABOLIC PANEL (BMP) Routine 12/30/2019 12:18 EST Essential hypertension Type 2 diabetes mellitus without complication, without long-term current use of insulin ([facility]) documented in this encounter Results * ALBUMIN, URINE (12/30/2019 12:19 EST) Albumin, Urine <0.6 See Note mg/dL 2019 18:48 EST [facility] Comment: NOTE: Reference range not established Creatinine, Urine 104.7 See Note mg/dL 12/30/2019 18:48 EST [facility] Comment: NOTE: Reference range not established Lab Urine Albumin to Creatinine Ratio <6 <30 ug/mg Creatinine 12/30/2019 18:48 EST [facility] Comment: Urine Albumin/Creatinine Ratio: Normal: <30 ug/mg Creatinine Moderately increased albuminuria: 30-30 ug/mg Creatinine [place] increased albuminuria: >300 ug/mg Creatinine Urine URINE SPECIMEN OBTAINED BY CLEAN CATCH PROCEDURE / Unknown Urine Collect / Unknown 12/30/2019 12:19 EST 12/30/2019 12:19 EST Roxanna Hannah MD CHEMISTRY & BLOOD GAS OR DERABLES Final Result Performing Organization Address [facility] Co de Phone Number [facility] [address] [place] [address] * VALPROIC ACID LEVEL (12/30/2019 12:18 EST) Valproic Acid 85 50 - 100 ug/mL 12/30/2019 18:08 EST [facility] Blood VENOUS BLOOD / Unknown Venipuncture / Unknown 12/30/2019 12:18 EST 12/30/2019 12:19 EST Roxanna Hannah MD CHEMISTRY & BLOOD GAS OR DERABLES Final Result Performing Organization Address [facility] Co de Phone Number [facility] [address] [place] [address] * (ABNORMAL) HEMOGLOBIN A1C (12/30/2019 12:18 EST) Hemoglobin A1c 7.7(H) <5.7 % 12/31/2019 9:56 EST [facility] Comment: Glycemic Status References: [...] Est Avg Glucose 174 mg/dL 0 9:56 [facility] Comment: The eAG represents the A1c result expressed as average glucose in mg/dL. Blood VENOUS BLOOD / Unknown Venipuncture / Unknown 12/30/2019 12:18 EST 12/30/2019 12:19 EST us Roxanna Hannah MD CHEMISTRY & BLOOD GAS OR DERABLES Final Result [facility] [address] [place] [address] * LIPID PROFILE (INCLUDES CHOLESTEROL, TRIGLYCERIDES, HDL, LDL) (12/30/2019 12:18 EST) Cholesterol 116 See Note mg/dL 12/30/2019 18:03 [facility] Comment: Acceptable: ?<200 mg/dL Borderline High: 200-239 mg/dL High: ?> or = 240 mg/dL HDL 25 See Note mg/dL 12/30/2019 18:03 [facility] Comment: Low: ? <40 mg/dL Normal: ??40-60 mg/dL High: ?>60 mg/dL LDL, Calculated 56 See Note mg/dL 12/30/2019 18:03 [facility] Comment: Optimal: ? <100 mg/dL Near Optimal: ?100-129 mg/dL Borderline High: 130-159 mg/dL High: ?160-189 mg/dL Very High: ? > or = 190 mg/dL Triglyceride 177 See Note mg/dL 12/30/2019 18:03 [facility] Comment: Normal: ? <150 mg/dL Borderline High: ??150 - 199 mg/dL High: ? 200 - 499 mg/dL Very High: ?> or = 500 mg/dL Chol/HDL Ratio 4.6 See Note 12/30/2019 18:03 [facility] Comment: No reference range has been established for CHOL/HDL ratio. Non HDL Cholesterol 91 See Note mg/dL 12/30/2019 18:03 [facility] Comment: Desirable: ?<130 mg/dL Borderline High: ??130-159 mg/dL High: ? 160-189 mg/dL Very High: ?> or = 190 mg/dL Blood VENOUS BLOOD / Unknown Venipuncture / Unknown 12/30/2019 12:18 EST 12/30/2019 12:19 EST Narrative [facility] - 12/30/2019 18:03 EST 3 us Roxanna Hannah MD CHEMISTRY & BLOOD GAS OR DERABLES Final Result Performing Organization Address City/State/[facility] Co de Phone Number [facility] [address] [place] [address] * (ABNORMAL) BASIC METABOLIC PANEL (BMP) (12/30/2019 12:18 EST) Sodium 140 136 - 145 mEq/L 12/30/2019 18:03 [facility] Potassium 5.1(H) 3.5 - 5.0 mEq/L 12/30/2019 18:03 [facility] Chloride 99 96 - 110 mEq/L 12/30/2019 18:03 [facility] CO2 Total 32 22 - 32 mEq/L 12/30/2019 18:03 [facility] Glucose 149(H) 70 - 100 mg/dL 12/30/2019 18:03 [facility] Calcium 10.5 8.5 - 10.5 mg/dL 12/30/2019 18:03 [facility] Calculated Calcium 10.2 8.5 - 10.5 mg/dL 12/30/2019 18:03 [facility] BUN 14 10 - 26 mg/dL 12/30/2019 18:03 [facility] Creatinine 0.78 0.66 - 1.25 mg/dL 12/30/2019 18:03 [facility] eGFR 96 >60 mL/min/1.7 3m2 12/30/2019 18:03 EST [facility] Comment:eGFR calculated matthew wiggins CKD-EPI equation for non- Americans. Multiply eGFR by 1.16 for patients. Blood VENOUS BLOOD / Unknown Venipuncture / Unknown 12/30/2019 12:18 EST 12/30/2019 12:19 EST Narrative [facility] - 12/30/2019 18:03 EST 3 us Roxanna Hannah MD CHEMISTRY & BLOOD GAS OR DERABLES Final Result [facility] [address] [place] [address] documented in this encounter Visit Diagnoses Diagnosis Skin lesion of face- Primary Unspecified disorder of skin and subcutaneous tissue Type 2 diabetes mellitus without complication, without long-term current use of insulin ([facility]) Essential hypertension Unspecified essential hypertension Other hyperlipidemia Seizure disorder ([facility]) Unspecified epilepsy without mention of intractable epilepsy documented in this encounter Discontinued Medications Medication Sig Discontinue Reason Start Date End Da te Garlic capsule Take 5 Caps by mouth daily. Error 03/2020 documented as of this encounter Care Teams Coordinator Of Placement Relationship Specialty Start Date End Date Roxanna Hannah MD [address] [place] [phone] PCP - General 03/28/09 05/31/20 documented as of this encounter
--- OUTSIDE RECORDS SUMMARY | 2025-01-06 15:35 | XMS_ITS | Encounter Summary ---
Author Organization [facility] Address [address] [place] [address] Care Team Providers Care Record Retrieval Specialist Name Role Phone Rebeca Garcia Primary Care Provider + Encounter Details Date Type Department Care Team (Late st Contact Info) Description 08/16/2023 Lab Requisition [facility] Pathology & Laboratory Medicine - [facility] [address] [place] [address] Outr Resulting Lab, Provider Social History Tobacco [...] please visit: [email or web address]/medcenter/Pages/Wellness-Resources/Tuflfepab-Penwvt-Od sourc e-Center.aspx LDL < 100 Result Component Hyperlipidemia 56( 0 12:18 EST) No Maggie Andrade LPN HEMOGLOBIN A1C < 7.0 Result Component Type 2 diabetes mellitus ([facility]) 7.7(12/30/19 20 12:18 EST) [...] & BLOOD GA S ORDERABLES Final Result [facility] [address] [place] [address] documented in this encounter Visit Diagnoses Not on filedocumented in this encounter Care Teams Record Retrieval Specialist Relationship Specialty Start Date End Date Rebeca Garcia PA [address] [place] [phone] PCP - General 11/25/21 documented as of this encounter
--- OUTSIDE RECORDS SUMMARY | 2025-01-06 15:35 | XMS_ITS | Encounter Summary ---
Author Organization [facility] Address [address] [place] [address] Care Team Providers Care Malted Milk Supervisor Name Role Phone Rebeca Garcia Primary Care Provider + Encounter Details Date Type Department Care Team (Late st Contact Info) Description 10/23/2023 14:40 EST Phlebotomy Only [facility] ([facility]) [address] [place] [phone] Memory loss Social History Tobacco Use Types [...] learn more about your health please visit: https://www.[facility].org/medcenter/Pages/Wellness-Resources/Cqjjphgkz-Rkqfhh-Rj sourc e-Center.aspx LDL < 100 Result Component Hyperlipidemia 56( 0 12:18 EST) No Maggie Andrade LPN HEMOGLOBIN A1C < 7.0 Result Component Type 2 diabetes mellitus ([facility]) 7.7(12/30/19 20 12:18 EST) No [...] 211 - 911 pg/mL 10/23/2023 18:31 EST [facility] Blood VENOUS BLOOD / Unknown Venipuncture / Unknown 10/23/2023 14:46 EST 10/23/2023 14:46 EST Pradeep Yi MD CHEMISTRY & BLOOD GAS ORDERABLE S Final Result Performing Organization Address [facility] Co de Phone Number [facility] [address] [place] [address] * TSH (10/23/2023 14:46 EST) Pathologist [facility] TSH 1.67 0.47 - 4.68 mIU/L 10/23/2023 17:24 EST [facility] Blood VENOUS BLOOD / Unknown Venipuncture / Unknown 10/23/2023 14:46 EST 10/23/2023 14:46 EST Narrative [facility] - 10/23/2023 17:24 EST The results of this assay can be falsely lowered due to the consumption of Biotin. Pradeep Yi MD CHEMISTRY & BLOOD GAS ORDERABLE S Final Result Performing Organization Address [facility] Co de Phone Number [facility] [address] [place] [address] * SYPHILIS SEROLOGY (10/23/2023 14:46 EST) Pathologist [facility] Syphilis Serology Negative Negative 10/24/2023 10:22 EST [facility] Blood VENOUS BLOOD / Unknown Venipuncture / Unknown 10/23/2023 14:46 EST 10/23/2023 14:46 EST Pradeep Yi MD IMMUNOLOGY AND SEROLOGY ORDERAB LES Final Result [facility] [address] [place] [address] * (ABNORMAL) COMPREHENSIVE METABOLIC PANEL (CMP) (10/23/2023 14:46 EST) Sodium 143 136 - 145 mmol/L 10/23/2023 16:49 [facility] Potassium 4.4 3.5 - 5.0 mmol/L 10/23/2023 16:49 [facility] Chloride 104 96 - 110 mmol/L 10/23/2023 16:49 [facility] CO2 Total 27 22 - 32 mmol/L 10/23/2023 16:49 [facility] Glucose 105(H) 70 - 99 mg/dl 10/23/2023 16:49 [facility] BUN 21 10 - 26 mg/dL 10/23/2023 16:49 [facility] Creatinine 0.84 0.66 - 1.25 mg/dL 10/23/2023 16:49 [facility] eGFR 96 >60 mL/min/1.7 3m2 10/23/2023 16:49 [facility] Total Protein 7.6 6.3 - 8.2 g/dL 10/23/2023 16:49 [facility] Albumin 4.6 3.4 - 4.9 g/dL 10/23/2023 16:49 [facility] Alkaline Phosphatase 66 38 - 126 U/L 10/23/2023 16:49 [facility] AST 30 15 - 46 U/L 10/23/2023 16:49 [facility] ALT 35 <50 U/L 10/23/2023 16:49 [facility] Bilirubin, Total 0.6 <1.4 mg/dL 10/23/20 16:49 [facility] Calcium 9.9 8.5 - 10.5 mg/dL 10/23/2023 16:49 [facility] Albumin/Globulin Ratio 1.5 1.0 - 2.5 g/dL 10/23/2023 16:49 [facility] Anion Gap 12 5 - 14 mmol/L 10/23/2023 16:49 [facility] Blood VENOUS BLOOD / Unknown Venipuncture / Unknown 10/23/2023 14:46 EST 10/23/2023 14:46 EST us Pradeep Yi MD CHEMISTRY & BLOOD GAS ORDERABLE S Final Result [facility] [address] [place] [address] * (ABNORMAL) COMPLETE BLOOD COUNT AND DIFFERENTIAL (10/23/2023 14:46 EST) WBC 6.80 4.00 - 10.40 K/cmm 10/23/2023 16:05 [facility] RBC 5.68 4.36 - 5.78 M/cmm 10/23/2023 16:05 [facility] Hemoglobin 17.9(H) 13.8 - 17.3 g/dL 10/23/2023 16:05 [facility] HCT 53.5(H) 39.5 - 50.2 % 10/23/2023 16:05 [facility] MCV 94 81 - 95 fL 10/23/2023 16:05 [facility] MCH 31.5 27.6 - 33.0 pg 10/23/2023 16:05 [facility] MCHC 33.5 32.8 - 36.4 g/dL 10/23/2023 16:05 [facility] RDW-CV 14.3(H) <14.2 % 10/23/2023 16:05 [facility] RDW-SD 49.6(H) <46.0 fl 10/23/2023 16:05 [facility] PLT 171 141 - 377 K/cmm 10/23/2023 16:05 [facility] MPV 11.3 9.5 - 12.7 fL 10/23/2023 16:05 [facility] % Neutrophils 52.4 % 10/23/2023 16:05 [facility] % Lymphocytes 36.8 % 10/23/2023 16:05 [facility] % Monocytes 8.4 % 10/23/2023 16:05 [facility] % Eosinophils 0.7 % 10/23/2023 16:05 [facility] % Basophils 0.7 % 10/23/2023 16:05 [facility] % Immature Grans 1.0 % 10/23/20 16:05 [facility] Absolute Neutrophils 3.56 2.20 - 8.85 K/cmm 10/23/2023 16:05 [facility] Absolute Lymphocytes 2.50 1.09 - 3.30 K/cmm 10/23/2023 16:05 [facility] Absolute Monocytes 0.57 0.10 - 0.80 K/cmm 10/23/2023 16:05 [facility] Absolute Eosinophils 0.05 0.03 - 0.61 K/cmm 10/23/2023 16:05 [facility] ABS Basophils 0.05 0.01 - 0.11 K/cmm 10/23/2023 16:05 [facility] Absolute Immature Grans 0.07(H) 0.00 - 0.06 K/cmm 10/23/2023 16:05 [facility] Type of Differential: Auto 10/23/2023 16:05 [facility] Blood VENOUS BLOOD / Unknown Venipuncture / Unknown 10/23/2023 14:46 EST 10/23/2023 14:46 EST us Pradeep Yi MD PACKAGES & DNA PROBE ORDERABLES Final Result [facility] [address] [place] [address] documented in this encounter Visit Diagnoses Diagnosis Memory loss documented in this encounter Care Teams Malted Milk Supervisor Relationship Specialty Start Date End Date Rebeca Garcia PA [address] [place] [phone] PCP - General 11/25/21 documented as of this encounter
--- OUTSIDE RECORDS SUMMARY | 2025-01-06 15:35 | XMS_ITS | Encounter Summary ---
Author Organization [facility] Address [address] [place] [address] Care Team Providers Care Tip Stitcher Name Role Phone Rebeca Garcia Primary Care Provider + Encounter Details Date Type Department Care Team (Late st Contact Info) Description 10/07/2024 Lab Requisition [facility] Pathology & Laboratory Medicine - [facility] [address] [place] [address] Outr Resulting Lab, Provider Social History Tobacco [...] learn more about your health please visit: https://www.[email or web address].org/medcenter/Pages/Wellness-Resources/Jcxfbnzfm-Priugv-Ox sourc e-Center.aspx LDL < 100 Result Component Hyperlipidemia 56( 0 12:18 EST) No Maggie Andrade LPN HEMOGLOBIN A1C < 7.0 Result Component Type 2 diabetes mellitus ([facility]) 7.7(12/30/19 20 12:18 EST) No Maggie Andrade LPN documented as of this encounter Procedures Procedure Name Priority Date/Time Associated Diagnosis Comments HEPATITIS C AB W REFLEX TO HCV RNA BY PCR Routine 10/06/2024 11:00 EST documented in this encounter Results * HEPATITIS C AB W REFLEX TO HCV RNA BY PCR (10/06/2024 11:00 EST) Hep C Antibody Negative Negative 10/07/2024 18:38 EST [facility] Blood VENOUS BLOOD / Unknown 10/06/2024 11:00 EST 10/07/2024 16:59 EST us Provider Outr Resulting Lab CHEMISTRY & BLOOD GA S ORDERABLES Final Result [facility] [address] [place] [address] documented in this encounter Visit Diagnoses Not on filedocumented in this encounter Care Teams Tip Stitcher Relationship Specialty Start Date End Date Rebeca Garcia PA [address] [place] [phone] PCP - General 11/25/21 documented as of this encounter
--- OUTSIDE RECORDS SUMMARY | 2025-01-06 15:36 | XMS_ITS | Encounter Summary ---
Author Organization [facility] Address [address] [place] [address] Care Team Providers Care Supervisor Whipped Topping Name Role Phone Roxanna Hannah MD Primary Care Provider + Reason for Visit * Reason Onset Date Comments Results 10/22/2017 Encounter Details Date Type Department Care Team (Late st Contact Info) Description 10/22/[address] [address] Michaela Taylor, KALYANI Results Social History Tobacco [...] Telephone Encounter - Iwona Troncoso - 10/22/2017 0253 EST Patient is calling back and given [...] filedocumented in this encounter Care Teams Supervisor Whipped Topping Relationship Specialty Start Date End Date Roxanna Hannah MD [address] [place] [phone] PCP - General 03/28/09 05/31/20 documented as of this encounter
--- OUTSIDE RECORDS SUMMARY | 2025-01-06 15:36 | XMS_ITS | Encounter Summary ---
Author Organization [facility] Address [address] [place] [address] Care Team Providers Care Hot Die Press Feeder Name Role Phone Roxanna Hannah MD Primary Care Provider + Encounter Details Date Type Department Care Team (Late st Contact Info) Description 06/03/2018 Results Only Imaging [facility] Family Medicine - [address] [id number] Roxanna Hannah MD [address] [place] [phone] Social History Tobacco Use Types Packs/Day Years [...] on filedocumented in this encounter Care Teams Hot Die Press Feeder Relationship Specialty Start Date End Date Roxanna Hannah MD [address] [place] [phone] PCP - General 03/28/09 05/31/20 documented as of this encounter
--- OUTSIDE RECORDS SUMMARY | 2025-01-06 15:36 | XMS_ITS | Encounter Summary ---
Author Organization [facility] Address [address] [place] [address] Care Team Providers Care Forklift Driver Name Role Phone Roxanna Hannah MD Primary Care Provider + Reason for Visit * Reason Comments Diabetes * Consult (Routine) - Specialty Report Received Specialty Diagnoses / Procedures Referred By Nela bravo Referred To Contact Diagnoses Type 2 diabetes mellitus without complication, without long-term current use of insulin ([facility]) Roxanna Hannah MD Phone: tel: fax: Referral ID Status Reason Start Date Expiration Date Visits Requested Visits Authorized [id number] Specialty Report Received Specialty Services Required 04/29/2018 1 1 Encounter Details Date Type Department Care Team (Late st Contact Info) Description 05/09/2018 10:00 EDT Community Health Team [facility] Family [address] [address] t, [facility] Social History Tobacco Use Types Packs/Day [...] Pt states that he recently bought a careers counsellor and is willing to try making smoothies [...] RD with questions. Patient's Primary Care Site: [address] Ronnie Bashir Total Time: 75 mins [...] on filedocumented in this encounter Care Teams Forklift Driver Relationship Specialty Start Date End Date Roxanna Hannah MD [address] [place] [phone] PCP - General 03/28/09 05/31/20 documented as of this encounter
--- OUTSIDE RECORDS SUMMARY | 2025-01-06 15:36 | XMS_ITS | Encounter Summary ---
Author Organization [facility] Address [address] [place] [address] Care Team Providers Care Marketing Senior Recruiter Name Role Phone Roxanna Hannah MD Primary Care Provider + Reason for Visit * Reason Comments Hypertension Thinks he discontinu ed Lisinopril due to suicidal ideation. Encounter Details Date Type Department Care Team (Late st Contact Info) Description 03/03/2019 15:45 EDT Office Visit [address] [phone] Unknown, Provider, Balbina Ayon MD [address] [facility], [address] [place], [place] [address] Magi Cleaning MD [address] [place] [phone] Hypertension, unspecified type (Primary Dx); Type 2 diabetes mellitus without complication, without long-term current use of insulin ([facility]); Obesity, Class II, BMI 35-39.9, [...] complication, without long-term current use of insulin ([facility]): Last A1c 04/2018 was 7.1% [...] Cleaning MD Family Medicine: PGY 3 Pager #[phone] 03/04/2019 9:14 * Raffi Gracia - 03/03/2019 [...] Result Component Type 2 diabetes mellitus ([facility]) 7.7(12/30/19 20 12:18 EST) No Maggie Andrade LPN documented as of this encounter Procedures Procedure Name Priority Date/Time Associated Diagnosis Comments HEMOGLOBIN A1C Routine 03/03/2019 16:51 EDT Type 2 diabetes mellitus without complication, without long-term current use of insulin ([facility]) BASIC METABOLIC PANEL (BMP) Routine 03/03/2019 16:51 EDT Hypertension, unspecified type documented in this encounter Results * (ABNORMAL) BASIC METABOLIC PANEL (BMP) (03/03/2019 16:51 EDT) Sodium 138 136 - 145 mEq/L 03/03/2019 20:40 EDT [facility] Potassium 4.4 3.5 - 5.0 mEq/L 03/03/2019 20:40 T [facility] Chloride 96 96 - 110 mEq/L 03/03/2019 20:40 T [facility] CO2 32 22 - 32 mEq/L 03/03/2019 20:40 [facility] BUN 13 10 - 26 mg/dl 03/03/2019 20:40 [facility] Creatinine 1.00 0.66 - 1.25 mg/dl 03/03/2019 20:40 [facility] GFR, Calculated 80 >60 ml/min/1.7 3m2 03/03/2019 20:40 [facility] Comment: eGFR calculated using CKD-EPI equation for non Americans. Multiply eGFR by 1.16 for Americans. Calcium 10.1 8.5 - 10.5 mg/dl 03/03/2019 20:40 [facility] Calculated Calcium 9.5 8.5 - 10.5 mg/dl 03/03/2019 20:40 [facility] Glucose, Serum 178(H) 70 - 100 mg/dl 03/03/2019 20:40 [facility] Fasting? Unknown 03/03/2019 20:40 [facility] Blood specimen (specimen) BLOOD SPECIMEN / Unknown 03/03/2019 16:51 EDT 03/03/2019 20:12 EDT Balbina Sanchez MD CHEMISTRY & BLOOD GAS EVE SHAVER Final Result [facility] [address] [place] [address] * HEMOGLOBIN A1C (03/03/2019 16:51 EDT) Pathologist [facility] Hemoglobin A1C 8.6 % 03/04/2019 10:55 [facility] Comment: Reference Range: <5.7% Normal 5.7-6.4% Prediabetes =>6.5% Diagnostic for diabetes (if confirmed) Goals for glycemic control in diabetes ADA 2017 For non adults with diabetes: ?? Target <7.0% For children and adolescents with type 1 diabetes: ?? Target <7.5% More or less stringent targets may be appropriate for individual patients. Est Avg Glucose 200 mg/dl 9 10:55 [facility] Comment: eAG represents the A1c result expressed as average glucose in mg/dl. Blood specimen (specimen) BLOOD SPECIMEN / Unknown 03/03/2019 16:51 EDT 03/03/2019 20:12 EDT us Balbina Sanchez MD CHEMISTRY & BLOOD GAS EVE SHAVER Final Result [facility] [address] [place] [address] documented in this encounter Visit Diagnoses Diagnosis Hypertension, unspecified type- Primary Type 2 diabetes mellitus without complication, without long-term current use of insulin ([facility]) Obesity, Class II, BMI 35-39.9, no comorbidity Obesity, unspecified documented in this encounter Discontinued Medications Medication Sig Discontinue Reason Start Date End Da te lisinopril (PRINIVIL, ZESTRIL) 5 mg tabletIndications:Benign essential HTN Take 1 Tab by mouth daily. 04/29/2018 03/03/2019 documented as of this encounter Care Teams Marketing Senior Recruiter Relationship Specialty Start Date End Date Roxanna Hannah MD [address] [place] [phone] PCP - General 03/28/09 05/31/20 documented as of this encounter
--- OUTSIDE RECORDS SUMMARY | 2025-01-06 15:36 | XMS_ITS | Encounter Summary ---
Author Organization [facility] Address [address] [place] [address] Care Team Providers Care Carbon Sequestration Plant Engineer Name Role Phone Roxanna Hannah MD Primary Care Provider + Reason for Visit * Reason Onset Date Comments Bronchitis 11/19/2018 bronchopneumonia Encounter Details Date Type Department Care Team (Late st Contact Info) Description 11/19/[address] [address] Olinda Taylor LPN Bronchitis (bronchopneumonia ) Social [...] - 11/19/2018 1400 EST Received information from [facility] . Patient there on 11-14-18 with SOB. [...] diabetes mellitus ([facility]) 7.7(12/30/19 20 12:18 EST) No Maggie Andrade LPN documented as of this encounter Visit Diagnoses Not on filedocumented in this encounter Care Teams Carbon Sequestration Plant Engineer Relationship Specialty Start Date End Date Roxanna Hannah MD [address] [place] [phone] PCP - General 03/28/09 05/31/20 documented as of this encounter
--- OUTSIDE RECORDS SUMMARY | 2025-01-06 15:36 | XMS_ITS | Encounter Summary ---
Author Organization [facility] Address [address] [place] [address] Care Team Providers Care Assistant Producer Name Role Phone Roxanna Colunga MD Primary Care Provider + Reason for Visit * Reason Onset Date Comments Results 03/12/2019 Encounter Details Date Type Department Care Team (Late st Contact Info) Description 03/12/[address] [phone] Roxanna Colunga MD [address] [place] [phone] Results Social History Tobacco Use Types Packs/Day [...] Cleaning MD Family Medicine: PGY 3 Pager #[phone] 03/13/2019 18:55 * Telephone Encounter - Sherrie [...] Cleaning MD Family Medicine: PGY 3 Pager #[phone] 03/13/2019 9:34 * Telephone Encounter - Isaura [...] 7.0 Result Component Type 2 diabetes mellitus ([facility]) 7.7(12/30/19 20 12:18 EST) No Maggie Andrade LPN documented as of this encounter Visit Diagnoses Not on filedocumented in this encounter Care Teams Assistant Producer Relationship Specialty Start Date End Date Roxanna Colunga MD [address] [place] [phone] PCP - General 03/28/09 05/31/20 documented as of this encounter
--- OUTSIDE RECORDS SUMMARY | 2025-01-06 15:36 | XMS_ITS | Encounter Summary ---
Author Organization [facility] Address [address] [place] [address] Care Team Providers Care Haircutter Name Role Phone Roxanna Hannah MD Primary Care Provider + Reason for Visit * Reason Onset Date Comments Follow-up 05/19/2018 emergency room N 05/17/18 Encounter Details Date Type Department Care Team (Late st Contact Info) Description 05/19/[address] [address] Maggie Andrade LPN Follow-up (emergency room [facility] 05/17/18) Social History Tobacco Use Types Packs/Day [...] 05/19/2018 1015 EDT Pt. Was seen at [facility] ER on 05/17 for numbness bilat arms with pain across back and over shoulders and chest Stated he had an EKG and chest xray which were both neg. Stated he had blood work done and negative for an M.I. All I ended up with was a bill.. Stated the numbness in his arms subsided after a few mins. He stated that [facility] mentioned possibly having a stress test in [...] on filedocumented in this encounter Care Teams Haircutter Relationship Specialty Start Date End Date Roxanna Hannah MD [address] [place] [phone] PCP - General 03/28/09 05/31/20 documented as of this encounter
--- OUTSIDE RECORDS SUMMARY | 2025-01-06 15:36 | XMS_ITS | Encounter Summary ---
Author Organization [facility] Address [address] [place] [address] Care Team Providers Care Information Assurance Name Role Phone Roxanna Hannah MD Primary Care Provider + Reason for Visit * Reason Onset Date Comments Paperwork request 05/14/2017 Encounter Details Date Type Department Care Team (Late st Contact Info) Description 05/14/[address] [phone] Roxanna Hannah MD [address] [place] [address] [phone] Paperwork request Social History Tobacco Use Types [...] denied. I will leave the form atthe waterfront director. Return to Hallie Reynoso when done. documented [...] on filedocumented in this encounter Care Teams Information Assurance Relationship Specialty Start Date End Date Roxanna Hannah MD [address] [place] [phone] PCP - General 03/28/09 05/31/20 documented as of this encounter
--- OUTSIDE RECORDS SUMMARY | 2025-01-06 15:36 | XMS_ITS | Encounter Summary ---
Author Organization [facility] Address [address] [place] [address] Care Team Providers Care Turbine Assembler Name Role Phone Roxanna Hannah MD Primary Care Provider + Reason for Visit * Reason Onset Date Comments Medications Refill 12/18/2019 Encounter Details Date Type Department Care Team (Late st Contact Info) Description 12/18/2019 Refill [facility] Medicine [address] [address] Roxanna Hannah MD [address] [place] [address] [phone] Medications Refill Social History Tobacco Use Types [...] learn more about your health please visit: [email or web address]/Pages/Wellness-Resources/Gjbzfyeyp-Mmykpt-Xk sourc e-Center.aspx LDL < 100 Result Component [...] documented as of this encounter Care Teams Turbine Assembler Relationship Specialty Start Date End Date Roxanna Hannah MD [address] [place] [phone] PCP - General 03/28/09 05/31/20 documented as of this encounter
--- OUTSIDE RECORDS SUMMARY | 2025-01-06 15:36 | XMS_ITS | Encounter Summary ---
Author Organization [facility] Address [address] [place] [address] Care Team Providers Care Cultural Anthropology Professor Name Role Phone Roxanna Hannah MD Primary Care Provider + Reason for Visit * Reason Comments Other Encounter Details Date Type Department Care Team (Late st Contact Info) Description 04/07/2018 [facility] Medicine [address] [address] Roxanna Hannah MD [address] [place] [address] [phone] Other Social History Tobacco Use Types Packs/Day [...] Care Team: Yes. 04/29/18 Prescription refilled. BRUNILDA CCAERES RN 04/08/2018 9:28 documented in this encounter [...] this encounter Visit Diagnoses Diagnosis Seizure disorder ([facility])- Primary Unspecified epilepsy without mention of intractable epilepsy documented in this encounter Discontinued Medications Medication Sig Discontinue Reason Start Date End Da te divalproex (DEPAKOTE) 500 mg delayed release tablet TAKE 3 TABLETS AT BEDTIME Reorder 05/07/2017 04/07/2018 documented as of this encounter Care Teams Cultural Anthropology Professor Relationship Specialty Start Date End Date Roxanna Hannah MD [address] [place] [phone] PCP - General 03/28/09 05/31/20 documented as of this encounter
--- OUTSIDE RECORDS SUMMARY | 2025-01-06 15:36 | XMS_ITS | Encounter Summary ---
Author Organization [facility] Address [address] [place] [address] Care Team Providers Care Mophead Trimmer And Wrapper Name Role Phone Roxanna Hannah MD Primary Care Provider + Reason for Visit * Reason Onset Date Comments Appointment Related 06/02/2018 cancel Encounter Details Date Type Department Care Team (Late st Contact Info) Description 06/02/2018 Telephone [facility] Cardiology - [address] [place] [address] Betzaida Nova, JOSIAH [address] [facility], [address] [place] [phone] Appointment Related (cancel 06/03/18) Social [...] 7.0 Result Component Type 2 diabetes mellitus ([facility]) 7.7(12/30/19 20 12:18 EST) No Maggie Andrade LPN documented as of this encounter Visit Diagnoses Not on filedocumented in this encounter Care Teams Mophead Trimmer And Wrapper Relationship Specialty Start Date End Date Roxanna Hannah MD [address] [place] [phone] PCP - General 03/28/09 05/31/20 documented as of this encounter
--- OUTSIDE RECORDS SUMMARY | 2025-01-06 15:36 | XMS_ITS | Encounter Summary ---
Author Organization [facility] Address [address] [place] [address] Care Team Providers Care Room Worker Name Role Phone Roxanna Hannah MD Primary Care Provider + Reason for Visit * Reason Comments Other Encounter Details Date Type Department Care Team (Late st Contact Info) Description 03/12/2018 [facility] Medicine [address] [address] Roxanna Hannah MD [address] [place] [address] [phone] Other Social History Tobacco Use Types Packs/Day [...] documented as of this encounter Care Teams Room Worker Relationship Specialty Start Date End Date Roxanna Hannah MD [address] [place] [phone] PCP - General 03/28/09 05/31/20 documented as of this encounter
--- OUTSIDE RECORDS SUMMARY | 2025-01-06 15:36 | XMS_ITS | Encounter Summary ---
Author Organization [facility] Address [address] [place] [address] Care Team Providers Care Regulator Mechanic Name Role Phone Roxanna Hannah MD Primary Care Provider + Reason for Visit * Reason Onset Date Comments Results 01/24/2018 Encounter Details Date Type Department Care Team (Late st Contact Info) Description 01/24/2018 Orders Only [address] [address] Maggie Andrade LPN Social History Tobacco Use [...] Results * (ABNORMAL) COLONOSCOPY PROCEDURE (01/15/2018) Colonoscopy [facility] Colonoscopy, External [facility] Comment:Sessile polyp was fo und at [...] on filedocumented in this encounter Care Teams Regulator Mechanic Relationship Specialty Start Date End Date Roxanna Hannah MD [address] [place] [phone] PCP - General 03/28/09 05/31/20 documented as of this encounter
--- OUTSIDE RECORDS SUMMARY | 2025-01-06 15:36 | XMS_ITS | Encounter Summary ---
Author Organization [facility] Address [address] [place] [address] Care Team Providers Care Cellar Hand Name Role Phone Roxanna Hannah MD Primary Care Provider + Reason for Visit * Reason Onset Date Comments Pharmacy 03/05/2019 Encounter Details Date Type Department Care Team (Late st Contact Info) Description 03/05/[address] [phone] Roxanna Hannah MD [address] [place] [address] [phone] Pharmacy Social History Tobacco Use Types Packs/Day [...] Result Component Type 2 diabetes mellitus ([facility]) 7.7(12/30/19 20 12:18 EST) No Maggie Andrade LPN documented as of this encounter Visit Diagnoses Not on filedocumented in this encounter Care Teams Cellar Hand Relationship Specialty Start Date End Date Roxanna Hannah MD [address] [place] [phone] PCP - General 03/28/09 05/31/20 documented as of this encounter
--- OUTSIDE RECORDS SUMMARY | 2025-01-06 15:36 | XMS_ITS | Encounter Summary ---
Author Organization [facility] Address [address] [place] [address] Care Team Providers Care Bulbs Farmworker Name Role Phone Roxanna Hannah MD Primary Care Provider + Reason for Visit * Reason Onset Date Comments Orders (Non Pre-visit) 05/02/2017 CT Scan Encounter Details Date Type Department Care Team (Late st Contact Info) Description 05/02/[address] [phone] Roxanna Hannah MD [address] [place] [address] [phone] Orders (Non Pre-visit) (CT Scan) Social History [...] Patient would like a new order to [facility] for a CT scan, for the Right Lung. He had one in order made in 03/05/17 but [facility] was unable to schedule due to [...] on filedocumented in this encounter Care Teams Bulbs Farmworker Relationship Specialty Start Date End Date Roxanna Hannah MD [address] [place] [address] [phone] PCP - General 03/28/09 05/31/20 documented as of this encounter
--- OUTSIDE RECORDS SUMMARY | 2025-01-06 15:36 | XMS_ITS | Encounter Summary ---
Author Organization [facility] Address [address] [place] [address] Care Team Providers Care Commission Clerk Name Role Phone Roxanna Hannah MD Primary Care Provider + Reason for Visit * Reason Onset Date Comments Prior Auth, Other (i.e. radiology, etc.) 017 Encounter Details Date Type Department Care Team (Late st Contact Info) Description 05/08/[address] [phone] Roxanna Hannah MD [address] [place] [address] [phone] Prior Auth, Other (i.e. radiology, etc.) Social [...] on filedocumented in this encounter Care Teams Commission Clerk Relationship Specialty Start Date End Date Roxanna Hannah MD [address] [place] [phone] PCP - General 03/28/09 05/31/20 documented as of this encounter
--- OUTSIDE RECORDS SUMMARY | 2025-01-06 15:36 | XMS_ITS | Encounter Summary ---
Author Organization [facility] Address [address] [place] [address] Care Team Providers Care Painter And Decorator Apprentice Name Role Phone Roxanna Hannah MD Primary Care Provider + Encounter Details Date Type Department Care Team (Late st Contact Info) Description 05/21/2018 Orders Only [facility] Family Medicine - [address] [phone] Roxanna Hannah MD [address] [place] [address] [phone] Atypical chest pain (Primary Dx) Social History [...] pain documented in this encounter Care Teams Painter And Decorator Apprentice Relationship Specialty Start Date End Date Roxanna Hannah MD [address] [place] [address] [phone] PCP - General 03/28/09 05/31/20 documented as of this encounter
--- OUTSIDE RECORDS SUMMARY | 2025-01-06 15:36 | XMS_ITS | Encounter Summary ---
Author Organization [facility] Address [address] [place] [address] Care Team Providers Care Hat And Cap Sewer Name Role Phone Roxanna Hannah MD Primary Care Provider + Encounter Details Date Type Department Care Team (Late st Contact Info) Description 03/13/2019 Orders Only [facility] Family Medicine [address] [address] Magi Cleaning MD [address] [place] [address] Hypertension, unspecified type (Primary Dx) Social History [...] Component Type 2 diabetes mellitus ([facility]) 7.7(12/30/19 20 12:18 EST) No [...] documented as of this encounter Care Teams Hat And Cap Sewer Relationship Specialty Start Date End Date Roxanna Hannah MD [address] [place] [phone] PCP - General 03/28/09 05/31/20 documented as of this encounter
--- OUTSIDE RECORDS SUMMARY | 2025-01-06 15:36 | XMS_ITS | Encounter Summary ---
Author Organization [facility] Address [address] [place] [address] Care Team Providers Care Manager Entry Name Role Phone Roxanna Romero MD Primary Care Provider + Encounter Details Date Type Department Care Team (Late st Contact Info) Description 10/15/2017 Results Only [facility] [phone] Eladio Fischer MD [address] [place] [address] Social History Tobacco Use Types Packs/Day Years [...] ? MARIO CURRY ? Accession #: ? [id number] ? : ? 1955 (Age: 62) ??M ? Collect Date: ? 10/15/2017 ? Location: ? [facility] ? Receive Date: ? 10/15/2017 ? Provider: ELADIO FISCHER MD Copy to: DARNELL ROMERO MD ? Final Pathologic Diagnosis: OUTSIDE SLIDES [facility] [id number] (5), PROCEDURE DATE 10/10/2017 COLON, RIGHT, POLYP, [...] definitive invasion (i.e. nothing beyond AJCC pTis). ??[employer] slides of this case were reviewed at the intradepartmental consultation conference. ?? Document reviewed and electronically signed by: OYAV ALLEN MD Report ??Date: 10/16/2017 15:50 By the signature above, the attending physician certifies that he/she has personally conducted a gross and/or microscopic examination of the described specimens and rendered or confirmed the above diagnosis. Specimen(s) Received: [facility] [id number] (5); 1 block Clinical History: Colon polyps Gross Description: ? Five slides are received for review from [facility], one each labelled [id number] L1-3, [id number] B L4-5, [id number] B D1, [id number] B D2, [id number] B D3. ??One block is also received for review labelled [id number]. ?? End of Report [facility] 10/15/2017 15:0 8 EST 10/15/2017 15:08 EST us Eladio Fischer MD PATHOLOGY ORDERABLES Final Resu lt [facility] [address] [place] [address] documented in this encounter Visit Diagnoses Not on filedocumented in this encounter Care Teams Manager Entry Relationship Specialty Start Date End Date Roxanna Romero MD [address] [place] [address] [phone] PCP - General 03/28/09 05/31/20 documented as of this encounter
--- OUTSIDE RECORDS SUMMARY | 2025-01-06 15:36 | XMS_ITS | Encounter Summary ---
Author Organization [facility] Address [address] [place] [address] Care Team Providers Care Cut Roll Machine Offbearer Name Role Phone Roxanna Hannah MD Primary Care Provider + Reason for Referral * Radiology Services (Routine) - Closed Specialty Diagnoses / Procedures Referred By Nela t Referred To Contact Diagnoses Chronic left shoulder pain Procedures SHOULDER 2 OR MORE VIEWS Roxanna Hannah MD Phone: tel: fax: Referral ID Status Reason Start Date Expiration Date Visits Re quested Visits Authorized [id number] Closed 10/21/2017 1 1 Reason for Visit * Reason Comments Shoulder Pain chronic left shoulde r pain Encounter Details Date Type Department Care Team (Late st Contact Info) Description 10/21/2017 13:00 EST Office Visit [facility] Family Medicine [address] [address] Roxanna Hannah MD [address] [place] [phone] Chronic left shoulder pain (Primary Dx); Tubular [...] physical examination of adult ??? Seizure disorder ([facility]) ??? Gastroesophageal reflux disease ??? Essential hypertension [...] 10/03/2011 ??? Routine general medical examination at [facility] care [facility] 08/05/2002 ??? Seizure disorder ([facility]) 08/05/2002 ??? Seizures ([facility]) Current Outpatient Prescriptions on File Prior to [...] mailed once procedure scheduled. Questions: [facility] Gastroenterology: [phone] or GI Doctor's Office. (Patient not taking: [...] 1:29 PM Clinical History/Comments: M25.512-Pain in left [id number] G89.29-Other chronic pain-ICD-10; chronic left shoulder pain, acute now. Findings: Three-view left shoulder compared to 2011. Previously seen left shoulder arthroplasty is again seen. Hardware appears intact. No acute fracture or dislocation is seen. Procedure Note Eliecer Mobley MD - 10/21/2017 SHOULDER 2 OR MORE VIEW 10/21/2017 1:29 PM Clinical History/Comments: M25.512-Pain in left [id number]-34 G89.29-Other chronic pain-ICD-10; chronic left shoulder pain, [...] colon documented in this encounter Care Teams Cut Roll Machine Offbearer Relationship Specialty Start Date End Date Roxanna Hannah MD [address] [place] [phone] PCP - General 03/28/09 05/31/20 documented as of this encounter
--- OUTSIDE RECORDS SUMMARY | 2025-01-06 15:36 | XMS_ITS | Encounter Summary ---
Author Organization [facility] Address [address] [place] [address] Care Team Providers Care Chief Of Production Name Role Phone Roxanna Hannah MD Primary Care Provider + Reason for Visit * Reason Onset Date Comments Colonoscopy 10/24/2017 Encounter Details Date Type Department Care Team (Late st Contact Info) Description 10/24/[address] [address] Maggie Andrade LPN Colonoscopy Social History Tobacco [...] by Dr. Edi Kan on 10/10/17 at [facility]. Dr. Kan consulted with Dr. Yvonne Awad [facility] Pathology regarding specimen results. Michaela [...] filedocumented in this encounter Care Teams Chief Of Production Relationship Specialty Start Date End Date Roxanna Hannah MD [address] [place] [phone] PCP - General 03/28/09 05/31/20 documented as of this encounter
--- OUTSIDE RECORDS SUMMARY | 2025-01-06 15:36 | XMS_ITS | Encounter Summary ---
Author Organization [facility] Address [address] [place] [address] Care Team Providers Care Meter/Relay Craftsman Name Role Phone Roxanna Hannah MD Primary Care Provider + Reason for Visit * Reason Comments Shoulder Pain left shoulder pain Encounter Details Date Type Department Care Team (Late st Contact Info) Description 10/24/2017 16:30 EST Office Visit [facility] Family Medicine [address] [address] Roxanna Villafuerte MD [address] [facility] [address] [place] [phone] Chronic left shoulder pain (Primary [...] from the original note were not included. [facility] Patient Instructions Rotator Cuff: Exercises Your Care [...] Where can you learn more? Go to [email or web address] [email or web address] or log into your Change.org Online account at [email or web address]. Enter J005 in the search box to learn more about Rotator Cuff: Exercises. Current as of: February 12, 2017 Content Version: 11.4 ?? [id number] [employer]. Care instructions adapted under license by [facility] If you have questions about a medical condition or this instruction, always ask your healthcare professional. [employer] disclaims any warranty or liability foryour use [...] mailed once procedure scheduled. Questions: [facility] Gastroenterology: [phone] or GI Doctor's Office. 08/01/2017 10/25/2017 documented as of this encounter Care Teams Meter/Relay Craftsman Relationship Specialty Start Date End Date Roxanna Hannah MD [address] [place] [phone] PCP - General 03/28/09 05/31/20 documented as of this encounter
--- OUTSIDE RECORDS SUMMARY | 2025-01-06 15:36 | XMS_ITS | Encounter Summary ---
Author Organization [facility] Address [address] [place] [address] Care Team Providers Care Partner Cco Name Role Phone Roxanna Hannah MD Primary [...] Expiration Date V isits Requested Visits Authorized [id number] Specialty Report Received 08/01/2017 1 1 Reason for Visit * Reason Onset Date Comments Referral Request 07/31/2017 Encounter Details Date Type Department Care Team (Late st Contact Info) Description 07/31/[address] [address] Roxanna Hannah MD [address] [place] [address] [phone] Referral Request Social History Tobacco Use Types [...] suspension Instructions mailed once procedure scheduled. Questions: [facility] Gastroenterology: [phone] or GI Doctor's Office. 4000 mL 08/01/2017 7 documented in this encounter Miscellaneous Notes * Telephone Encounter - Isaura Ray - 08/15/2017 1451 EDT Message left for patient, who does he want to see for general surgery in [place] for a colonoscopy consult. * Telephone Encounter - Kahlil Butler - 08/14/2017 1300 EDT Patient would like to have his colonoscopy done at [place] instead * Telephone Encounter - Michaela Moyer [...] colon documented in this encounter Care Teams Partner Cco Relationship Specialty Start Date End Date Roxanna Hannah MD [address] [place] [phone] PCP - General 03/28/09 05/31/20 documented as of this encounter
--- OUTSIDE RECORDS SUMMARY | 2025-01-06 15:36 | XMS_ITS | Encounter Summary ---
Author Organization [facility] Address [address] [place] [address] Care Team Providers Care Surgery Specialist Name Role Phone Roxanna Hannah MD Primary Care Provider + Encounter Details Date Type Department Care Team (Late st Contact Info) Description 04/25/2018 Orders Only [facility] Family Medicine - [address] [phone] Roxanna Hannah MD [address] [place] [phone] Benign essential HTN (Primary Dx); IGT (impaired glucose tolerance); Other hyperlipidemia; Seizure disorder ([facility]) Social History Tobacco Use Types Packs/Day Years [...] 50.0 - 100.0 ug/ml 04/25/2018 21:44 EDT [facility] Blood specimen (specimen) BLOOD SPECIMEN / Unknown 04/25/2018 14:46 EDT 04/25/2018 21:18 EDT Roxanna Hannah MD CHEMISTRY & BLOOD GAS OR DERABLES Final Result [facility] [address] [place] [address] * LIPID PROFILE (INCLUDES CHOLESTEROL, TRIGLYCERIDES, HDL, LDL) (04/25/2018 14:46 EDT) Cholesterol 158 mg/dl 04/25/2018 21:43 EDT [facility] Comment: Desirable:<200 Borderline High:200-239 High:>yz=250 Triglycerides 240 mg/dl 04/25/2018 21:43 EDT [facility] Comment: Normal:<150 Borderline High:150-199 High:200-499 Very High:>hg=942 HDL 29 mg/dl 04/25/2018 21:43 T [facility] Comment: Low:<40 Normal:40-60 Desirable: >60 LDL, Calculated 81 mg/dl 8 21:43 [facility] Comment: Optimal:<100 Near Optimal:100-129 Borderline High:130-159 High:160-189 Very High:>gl=489 Chol/HDL Ratio 5.4 04/25/2018 21:43 [facility] Fasting? Unknown 04/25/2018 21:19 [facility] Non HDL Cholesterol 129 mg/dl 04/25/2018 21:43 [facility] Comment: Desirable:<130 Borderline:130-159 High: 160-189 Very High: >cj=227 Blood specimen (specimen) BLOOD SPECIMEN / Unknown 04/25/2018 14:46 EDT 04/25/2018 21:18 EDT us Roxanna Hannah MD CHEMISTRY & BLOOD GAS OR DERABLES Final Result [facility] [address] [place] [address] * HEMOGLOBIN A1C (04/25/2018 14:46 EDT) Hemoglobin A1C 7.1 % 04/28/2018 9:54 T [facility] Comment: Reference Range: <5.7% Normal 5.7-6.4% Prediabetes =>6.5% Diagnostic for diabetes (if confirmed) Goals for glycemic control in diabetes ADA 2017 For non adults with diabetes: ?? Target <7.5% For children and adolescents with type 1 diabetes: ?? Target <7.0% More or less stringent targets may be appropriate for individual patients. Est Avg Glucose 157 mg/dl 8 9:54 T [facility] Comment: eAG represents the A1c result expressed as average glucose in mg/dl. Blood specimen (specimen) BLOOD SPECIMEN / Unknown 04/25/2018 14:46 EDT 04/25/2018 21:18 EDT us Roxanna Hannah MD CHEMISTRY & BLOOD GAS OR DERABLES Final Result [facility] [address] [place] [address] * BASIC METABOLIC PANEL (BMP) (04/25/2018 14:46 EDT) Sodium 145 136 - 145 mEq/L 04/25/2018 21:43 [facility] Potassium 4.9 3.5 - 5.0 mEq/L 04/25/2018 21:43 [facility] Chloride 103 96 - 110 mEq/L 04/25/2018 21:43 [facility] CO2 32 22 - 32 mEq/L 04/25/2018 21:43 [facility] BUN 20 10 - 26 mg/dl 04/25/2018 21:43 [facility] Creatinine 0.93 0.66 - 1.25 mg/dl 04/25/2018 21:43 [facility] GFR, Calculated 88 >60 ml/min/1.7 3m2 04/25/2018 21:43 [facility] Comment: eGFR calculated using CKD-EPI equation for non Americans. Multiply eGFR by 1.16 for Americans. Calcium 9.9 8.5 - 10.5 mg/dl 04/25/2018 21:43 [facility] Calculated Calcium 9.7 8.5 - 10.5 mg/dl 04/25/2018 21:43 [facility] Glucose, Serum 87 70 - 100 mg/dl 04/25/2018 21:43 [facility] Fasting? Unknown 04/25/2018 21:19 [facility] Blood specimen (specimen) BLOOD SPECIMEN / Unknown 04/25/2018 14:46 EDT 04/25/2018 21:18 EDT us Roxanna Hannah MD CHEMISTRY & BLOOD GAS OR DERABLES Final Result [facility] [address] [place] [address] documented in this encounter Visit Diagnoses Diagnosis Benign essential HTN- Primary Essential hypertension, benign IGT (impaired glucose tolerance) Impaired glucose tolerance test Other hyperlipidemia Seizure disorder (HCC-CMS) Unspecified epilepsy without mention of intractable epilepsy documented in this encounter Care Teams Surgery Specialist Relationship Specialty Start Date End Date Roxanna Hannah MD [address] [place] [phone] PCP - General 03/28/09 05/31/20 documented as of this encounter
--- OUTSIDE RECORDS SUMMARY | 2025-01-06 15:36 | XMS_ITS | Encounter Summary ---
Author Organization [facility] Address [address] [place] [address] Care Team Providers Care Change Control Manager Name Role Phone Roxanna Hannah MD [...] Expiration Date V isits Requested Visits Authorized [id number] Specialty Report Received 03/31/2019 1 1 Reason for Visit * Reason Comments Diabetes 4 MONTH F/U Encounter Details Date Type Department Care Team (Late st Contact Info) Description 03/31/2019 10:15 EDT Office Visit [address] [phone] Roxanna Hannah MD [address] [place] [phone] Type 2 diabetes mellitus without complication, without long-term current use of insulin ([facility]) (Primary Dx); Other hyperlipidemia; Essential hypertension; Seizure disorder ([facility]); Tubulovillous adenoma of colon; Obesity (BMI 30-39.9) [...] suspension Instructions mailed once procedure scheduled. Questions: [facility] Gastroenterology: [phone] or GI Doctor's Office. 4000 mL 03/31/2019 [...] being taken. He does not see a optoelectronics engineer.Eye exam is current. Hypertension This is a [...] is no history of kidney disease or CAD/OK. There is no history of chronic renal [...] due for 1 year surveillance colonoscopy at [facility] with Dr. Kan Seizure D/O - no seizures Due in summer for Depakote level Obesity - when saw Dr. Cleaning last month discussed wt loss goal vs adding new Rx to help with wt loss and DM management Patient Active Problem List Diagnosis ??? Routine history and physical examination of adult ??? Seizure disorder ([facility]) ??? Gastroesophageal reflux disease ??? Essential hypertension ??? Hyperlipidemia ??? Allergic rhinitis ??? Male erectile disorder ??? Atypical chest pain ??? Depression ??? Anxiety ??? Type 2 diabetes mellitus without complication, without long-term current use of insulin ([facility]) ??? Unspecified polyarthropathy or polyarthritis, [...] care facility 08/05/2002 ??? Seizure disorder ([facility]) 08/05/2002 ??? Seizures ([facility]) ??? Type 2 diabetes mellitus without complication, without long-term current use of insulin ([facility]) Current Outpatient Medications on File [...] Allergen Reactions ??? Dilantin [Phenytoin Sodium Extended] Elmer like a zombie. ??? Lisinopril Depression ??? [...] complication, without long-term current use of insulin ([facility]) HgA1C up to 8.6 1 [...] hypertension At goal No changes Seizure disorder ([facility]) No recent Sz depakote level [...] gram suspension; Instructions mailedonce procedure scheduled. Questions: [facility] Gastroenterology: [phone] or GI Doctor's Office. Return in about [...] learn more about your health please visit: [email or web address] [email or web address].aspx LDL < 100 Result Component Hyperlipidemia 56( 0 12:18 EST) No Maggie Andrade, CHILD CARE GROUP LEADER HEMOGLOBIN A1C < 7.0 Result Component Type 2 diabetes mellitus ([facility]) 7.7(12/30/19 20 12:18 EST) No Maggie Andrade LPN documented as of this encounter Visit Diagnoses Diagnosis Type 2 diabetes mellitus without complication, without long-term current use of insulin ([facility])- Primary Other hyperlipidemia Essential hypertension Unspecified essential hypertension Seizure disorder ([facility]) Unspecified epilepsy without mention of [...] documented as of this encounter Care Teams Change Control Manager Relationship Specialty Start Date End Date Roxanna Hannah MD [address] [place] [phone] PCP - General 03/28/09 05/31/20 documented as of this encounter
--- OUTSIDE RECORDS SUMMARY | 2025-01-06 15:36 | XMS_ITS | Encounter Summary ---
Author Organization [facility] Address [address] [place] [address] Care Team Providers Care Embossograph Operator Name Role Phone Roxanna Hannah MD Primary Care Provider + Reason for Visit * Reason Comments Hypertension f/u Other had been to [facility] for dizziness x 3 days and lung pain x 2 wks. in March Encounter Details Date Type Department Care Team (Late st Contact Info) Description 05/07/2017 15:30 EDT Office Visit [address] [phone] Roxanna Hannah MD [address] [place] [address] [phone] Essential hypertension (Primary Dx); IGT (impaired glucose tolerance); Mixed hyperlipidemia; Seizure disorder ([facility]) Social History Tobacco Use Types Packs/Day Years [...] Hypertension f/u ??? Other had been to [facility] for dizziness x 3 days and lung pain x 2 wks. in March Episodes dizziness and pleuritic chest pain better CHEST CT has not happened yet, insurance continues to deny CXR report from [facility] ED visit states CHEST CT indicated for [...] There is no history of kidney disease, CAD/ND or a thyroid problem. There is no [...] documented as of this encounter Care Teams Embossograph Operator Relationship Specialty Start Date End Date Roxanna Hannah MD [address] [place] [phone] PCP - General 03/28/09 05/31/20 documented as of this encounter
--- OUTSIDE RECORDS SUMMARY | 2025-01-06 15:36 | XMS_ITS | Encounter Summary ---
Author Organization [facility] Address [address] [place] [address] Care Team Providers Care Fly Fishing Guide Name Role Phone Roxanna Hannah MD Primary Care Provider + Reason for Referral * Consult (Routine) - Specialty Report Received Specialty Diagnoses / Procedures [facility] Referred To Contact Diagnoses Type 2 diabetes mellitus without complication, without long-term current use of insulin ([facility]) Roxanna Hannah MD Phone: tel: fax: Referral ID Status Reason Start Date Expiration Date Visits Requested Visits Authorized [id number] Specialty Report Received Specialty Services Required 04/29/2018 [...] CHT within a week please call the [facility] Health Team at [phone]. Reason for Visit * Reason Comments Hypertension f/u Hyperlipidemia Diabetes Encounter Details Date Type Department Care Team (Late st Contact Info) Description 04/29/2018 14:00 EDT Office Visit [address] [address] Roxanna Hannah MD [address] [place] [phone] Type 2 diabetes mellitus without complication, without long-term current use of insulin ([facility]) (Primary Dx); Benign essential HTN; Essential hypertension; Mixed hyperlipidemia; Seizure disorder ([facility]); Foul smelling urine Discharge Disposition: Auto Discharge [...] Bilirubin Neg Neg Ketones Neg Neg Specific [place] 1.020 1.001 - 1.035 Blood Neg Neg pH 7.0 4.6 - 8.0 Protein Neg Neg Urobilinogen 1.0 0.2 - 1.0 E.U./dl Nitrite Neg Neg Leuk Esterase Neg Neg Tech ID [id number] Urine sample sent to lab for Umalb [...] There is no history of kidney disease, CAD/MS or CVA. There is no history of [...] Wt has gone up Agrees to see [facility] NUTRITION Jacinto D/O - on Depakote, no [...] health care facility 08/05/2002 ??? Seizure disorder ([facility]) 08/05/2002 ??? Seizures ([facility]) Current Outpatient Prescriptions on File Prior [...] complication, without long-term current use of insulin ([facility]) Diet controlled HgA1C up to 7.1 [...] Will meet with [facility] NUTRITION Seizure disorder ([facility]) Well controlled with Depakote, which is [...] complication, without long-term current use of insulin ([facility]) Ordered: 04/29/2018 documented as of this [...] 04/29/2018 15:01 EDT Foul smelling urine URINE [id number] NE RATIO (ACR) Routine 04/29/2018 14:33 EDT Type 2 diabetes mellitus without complication, without long-term current use of insulin ([facility]) documented in this encounter Results * HEMOGLOBIN A1C (08/11/2018 12:53 EDT) Hemoglobin A1C 6.8 % 08/12/2018 9:19 EDT [facility] Comment: Reference Range: <5.7% Normal 5.7-6.4% Prediabetes =>6.5% Diagnostic for diabetes (if confirmed) Goals for glycemic control in diabetes ADA 2017 For non adults with diabetes: ?? Target <7.0% For children and adolescents with type 1 diabetes: ?? Target <7.5% More or less stringent targets may be appropriate for individual patients. Est Avg Glucose 148 mg/dl 8 9:19 EDT [facility] Comment: eAG represents the A1c result expressed as average glucose in mg/dl. Blood specimen (specimen) BLOOD SPECIMEN / Unknown 08/11/2018 12:53 EDT 08/11/2018 19:20 EDT us Roxanna Hannah MD CHEMISTRY & BLOOD GAS OR DERABLES Final Result [facility] [address] [place] [address] * POCT URINE DIPSTICK, CLINITEK (04/29/2018 15:01 EDT) Color YELLOW 04/29/2018 14:50 EDT [facility] Clarity, UA Clear 04/29/2018 14:50 [facility] Glucose Neg Neg 04/29/2018 14:50 T [facility] Bilirubin Neg Neg 04/29/2018 14:50 T [facility] Ketones Neg Neg 04/29/2018 14:50 [facility] Specific [place] 1.020 1.001 - 1.035 04/29/2018 14:50 [facility] Blood Neg Neg 04/29/2018 14:50 [facility] pH 7.0 4.6 - 8.0 04/29/2018 14:50 [facility] Protein Neg Neg 04/29/2018 14:50 [facility] Urobilinogen 1.0 0.2 - 1.0 E.U./dl 04/29/2018 14:50 [facility] Nitrite Neg Neg 04/29/2018 14:50 [facility] Leuk Esterase Neg Neg 04/29/2018 14:50 [facility] solderer furnace ID [id number] 04/29/2018 14:50 [facility] Comment:Test performed at [facility] Urine specimen (specimen) URINE / Unknown 04/29/2018 15:01 EDT 04/29/2018 14:50 EDT us Roxanna Hannah MD POINT OF CARE TEST ORDER TSERING Final Result [facility] [address] [place] [address] * ALBUMIN, URINE (04/29/2018 14:33 EDT) Creatinine, Urn [place] 149.9 mg/dl 04/29/2018 20:48 EDT [facility] Ur Albumin mg/dl <0.6 mg/dL 04/29/20 18 20:59 EDT [facility] Comment:New Vitros 5600 Meth odology in use 03/26/2018 Urine Albumin to Creatinine Ratio <4.0 ug/mg Crea 04/29/2018 20:59 EDT [facility] Comment: Normal: <30 ug/mg creatinine Moderately increased albuminuria: 30-300 ug/mg creatinine Severly increased albuminuria: >300 ug/mg creatinine New Vitros 5600 Methodology in use 03/26/2018 Urine specimen (specimen) URINE / Unknown 04/29/2018 14:33 EDT 04/29/2018 18:29 EDT us Roxanna Hannah MD CHEMISTRY & BLOOD GAS OR DERABLES Final Result [facility] [address] [place] [address] documented in this encounter Visit Diagnoses Diagnosis Type 2 diabetes mellitus without complication, without long-term current use of insulin ([facility])- Primary Benign essential HTN Essential hypertension, benign Essential hypertension Unspecified essential hypertension Mixed hyperlipidemia Seizure disorder ([facility]) Unspecified epilepsy without mention of intractable [...] 12/30/2019 added in this encounter Care Teams Fly Fishing Guide Relationship Specialty Start Date End Date Roxanna Hannah MD [address] [place] [phone] PCP - General 03/28/09 05/31/20 documented as of this encounter
--- OUTSIDE RECORDS SUMMARY | 2025-01-06 15:36 | XMS_ITS | Encounter Summary ---
Author Organization [facility] Address [address] [place] [address] Care Team Providers Care Visual Effects Editor Name Role Phone Roxanna Hannah MD Primary Care Provider + Reason for Visit * Reason Comments Labs Only Encounter Details Date Type Department Care Team (Late st Contact Info) Description 04/25/2018 14:45 EDT Nurse Only [address] [address] Unknown, Provider, MD Sanchez, Balbina Flores MD [address] [facility], [address] [place] [address] Nurse, [facility] Ronnie White, RN Benign essential HTN; IGT (impaired glucose tolerance); Other hyperlipidemia; Seizure disorder ([facility]) Discharge Disposition: Auto Discharge Social History Tobacco [...] 50.0 - 100.0 ug/ml 04/25/2018 21:44 EDT [facility] Blood specimen (specimen) BLOOD SPECIMEN / Unknown 04/25/2018 14:46 EDT 04/25/2018 21:18 EDT us Roxanna Hannah MD CHEMISTRY & BLOOD GAS OR DERABLES Final Result [facility] [address] [place] [address] * LIPID PROFILE (INCLUDES CHOLESTEROL, TRIGLYCERIDES, HDL, LDL) (04/25/2018 14:46 EDT) Cholesterol 158 mg/dl 04/25/2018 21:43 EDT [facility] Comment: Desirable:<200 Borderline High:200-239 High:>fx=706 Triglycerides 240 mg/dl 04/25/2018 21:43 T [facility] Comment: Normal:<150 Borderline High:150-199 High:200-499 Very High:>si=053 HDL 29 mg/dl 04/25/2018 21:43 T [facility] Comment: Low:<40 Normal:40-60 Desirable: >60 LDL, Calculated 81 mg/dl 8 21:43 T [facility] Comment: Optimal:<100 Near Optimal:100-129 Borderline High:130-159 High:160-189 Very High:>yn=059 Chol/HDL Ratio 5.4 04/25/2018 21:43 EDT [facility] Fasting? Unknown 04/25/2018 21:19 EDT [facility] Non HDL Cholesterol 129 mg/dl 04/25/2018 21:43 EDT [facility] Comment: Desirable:<130 Borderline:130-159 High: 160-189 Very High: >hl=371 Blood specimen (specimen) BLOOD SPECIMEN / Unknown 04/25/2018 14:46 EDT 04/25/2018 21:18 EDT Roxanna Hannah MD CHEMISTRY & BLOOD GAS OR DERABLES Final Result Performing Organization Address [facility] de Phone Number [facility] [address] [place] [address] * HEMOGLOBIN A1C (04/25/2018 14:46 EDT) Pathologist [facility] Hemoglobin A1C 7.1 % 04/28/2018 9:54 EDT [facility] Comment: Reference Range: <5.7% Normal 5.7-6.4% Prediabetes =>6.5% Diagnostic for diabetes (if confirmed) Goals for glycemic control in diabetes ADA 2017 For non adults with diabetes: ?? Target <7.5% For children and adolescents with type 1 diabetes: ?? Target <7.0% More or less stringent targets may be appropriate for individual patients. Est Avg Glucose 157 mg/dl 8 9:54 EDT [facility] Comment: eAG represents the A1c result expressed as average glucose in mg/dl. Blood specimen (specimen) BLOOD SPECIMEN / Unknown 04/25/2018 14:46 EDT 04/25/2018 21:18 EDT us Roxanna Hannah MD CHEMISTRY & BLOOD GAS OR DERABLES Final Result Performing Organization Address [facility] de Phone Number [facility] [address] [place] [address] * BASIC METABOLIC PANEL (BMP) (04/25/2018 14:46 EDT) Sodium 145 136 - 145 mEq/L 04/25/2018 21:43 [facility] Potassium 4.9 3.5 - 5.0 mEq/L 04/25/2018 21:43 [facility] Chloride 103 96 - 110 mEq/L 04/25/2018 21:43 [facility] CO2 32 22 - 32 mEq/L 04/25/2018 21:43 [facility] BUN 20 10 - 26 mg/dl 04/25/2018 21:43 [facility] Creatinine 0.93 0.66 - 1.25 mg/dl 04/25/2018 21:43 [facility] GFR, Calculated 88 >60 ml/min/1.7 3m2 04/25/2018 21:43 [facility] Comment: eGFR calculated using CKD-EPI equation for non Americans. Multiply eGFR by 1.16 for Americans. Calcium 9.9 8.5 - 10.5 mg/dl 04/25/2018 21:43 [facility] Calculated Calcium 9.7 8.5 - 10.5 mg/dl 04/25/2018 21:43 [facility] Glucose, Serum 87 70 - 100 mg/dl 04/25/2018 21:43 [facility] Fasting? Unknown 04/25/2018 21:19 [facility] Blood specimen (specimen) BLOOD SPECIMEN / Unknown 04/25/2018 14:46 EDT 04/25/2018 21:18 EDT us Roxanna Hannah MD CHEMISTRY & BLOOD GAS OR DERABLES Final Result [facility] [address] [place] [address] documented in this encounter Visit Diagnoses Diagnosis Benign essential HTN Essential hypertension, benign IGT (impaired glucose tolerance) Impaired glucose tolerance test Other hyperlipidemia Seizure disorder (HCC-CMS) Unspecified epilepsy without mention of intractable epilepsy documented in this encounter Care Teams Visual Effects Editor Relationship Specialty Start Date End Date Roxanna Hannah MD [address] [place] [phone] PCP - General 03/28/09 05/31/20 documented as of this encounter
--- OUTSIDE RECORDS SUMMARY | 2025-01-06 15:36 | XMS_ITS | Encounter Summary ---
Author Organization [facility] Address [address] [place] [address] Care Team Providers Care Sports Apparel Internship Name Role Phone Roxanna Hannah MD Primary Care Provider + Reason for Visit * Reason Comments Skin Problem ? recurrent staph in fection on left wrist Encounter Details Date Type Department Care Team (Late st Contact Info) Description 06/26/2017 15:00 EDT Office Visit [address] [phone] Tuan Adrian MD Cutaneous abscess of left [...] Smear Result Few Polys 06/26/2017 22:36 EDT [facility] Gram Smear Result Few Gram positive cocci 06/26/2017 22:36 EDT [facility] Result Mod STAPHYLOCOCC US AUREUS 06/28/2017 9:05 EDT [facility] Specimen of unknown material [...] MICROBIOLOGY - GENERAL ORDERAB LES Final Result [facility] [address] [place] [address] documented in this encounter Visit Diagnoses Diagnosis Cutaneous abscess of left upper extremity- Primary Cellulitis and abscess of upper arm and forearm documented in this encounter Discontinued Medications Medication Sig Discontinue Reason Start Date End Da te desoximetasone (TOPICORT) 0.25 % cream Apply topically 2 times daily. Patient Stopped Taking 06/22/2016 06/26/2017 documented as of this encounter Care Teams Sports Apparel Internship Relationship Specialty Start Date End Date Roxanna Hannah MD [address] [place] [phone] PCP - General 03/28/09 05/31/20 documented as of this encounter
--- OUTSIDE RECORDS SUMMARY | 2025-01-06 15:36 | XMS_ITS | Encounter Summary ---
Author Organization [facility] Address [address] [place] [address] Care Team Providers Care Zinc Plater Name Role Phone Roxanna Hannah MD Primary Care Provider + Reason for Visit * Reason Onset Date Comments Results 01/15/2018 Encounter Details Date Type Department Care Team (Late st Contact Info) Description 01/15/2018 Orders Only [address] [address] Maggie Andrade LPN Social History Tobacco Use [...] on filedocumented in this encounter Care Teams Zinc Plater Relationship Specialty Start Date End Date Roxanna Hannah MD [address] [place] [phone] PCP - General 03/28/09 05/31/20 documented as of this encounter
--- OUTSIDE RECORDS SUMMARY | 2025-01-06 15:36 | XMS_ITS | Encounter Summary ---
Author Organization [facility] Address [address] [place] [address] Care Team Providers Care Beadworker Name Role Phone Roxanna Hannah MD Primary Care Provider + Reason for Visit * Reason Onset Date Comments Labs Only 04/25/2018 Encounter Details Date Type Department Care Team (Late st Contact Info) Description 04/25/[address] [address] Maggie Andrade LPN Labs Only Social History [...] on filedocumented in this encounter Care Teams Beadworker Relationship Specialty Start Date End Date Roxanna Hannah MD [address] [place] [phone] PCP - General 03/28/09 05/31/20 documented as of this encounter
--- OUTSIDE RECORDS SUMMARY | 2025-01-06 15:36 | XMS_ITS | Encounter Summary ---
Author Organization [facility] Address [address] [place] [address] Care Team Providers Care Automotive Internet Sales Manager Name Role Phone Roxanna Hannah MD Primary Care Provider + Reason for Visit * Reason Onset Date Comments Results 05/21/2019 Encounter Details Date Type Department Care Team (Late st Contact Info) Description 05/21/2019 Orders Only [address] [address] Maggie Andrade LPN Social History Tobacco Use [...] about your health please visit: [email or web address]/medcenter/Pages/Wellness-[email or web address]-Uzzyqy-Cb sourc e-Center.aspx LDL < 100 Result Component Hyperlipidemia 56( 0 12:18 EST) No Maggie Andrade LPN HEMOGLOBIN A1C < 7.0 Result Component Type 2 diabetes mellitus ([facility]) 7.7(12/30/19 20 12:18 EST) No Maggie Andrade LPN documented as of this encounter Procedures Procedure Name Priority Date/Time Associated Diagnosis Comments COLONOSCOPY PROCEDURE Routine 05/12/2019 documented in this encounter Results * COLONOSCOPY PROCEDURE (05/12/2019) Colonoscopy [facility] Colonoscopy, External [facility] Comment:The cecum, ascending , transverse, descending, sigmoid colon and rectum all appeared normal. No abnormalities in the rectum. Return for colonoscopy in 3 years or as needed for any changes. Anatomical Region Laterality Modality Endoscopy 05/12/2019 us Historical Provider GI PROCEDURE ORDERABLES F inal Result documented in this encounter Visit Diagnoses Not on filedocumented in this encounter Care Teams Automotive Internet Sales Manager Relationship Specialty Start Date End Date Roxanna Hannah MD [address] [place] [phone] PCP - General 03/28/09 05/31/20 documented as of this encounter
--- OUTSIDE RECORDS SUMMARY | 2025-01-06 15:36 | XMS_ITS | Encounter Summary ---
Author Organization [facility] Address [address] [place] [address] Care Team Providers Care Supervisor Opening And Picking Name Role Phone Roxanna Hannah MD Primary Care Provider + Reason for Visit * Reason Onset Date Comments Results 10/21/2017 Encounter Details Date Type Department Care Team (Late st Contact Info) Description 10/21/2017 Orders Only [address] [address] Maggie Andrade LPN Social History Tobacco Use [...] 10/21/2017 documented in this encounter Care Teams Supervisor Opening And Picking Relationship Specialty Start Date End Date Roxanna Hannah MD [address] [place] [phone] PCP - General 03/28/09 05/31/20 documented as of this encounter
--- OUTSIDE RECORDS SUMMARY | 2025-01-06 15:36 | XMS_ITS | Encounter Summary ---
Author Organization [facility] Address [address] [place] [address] Care Team Providers Care Theater Set Production Designer Name Role Phone Roxanna Hannah MD Primary Care Provider + Reason for Referral * Radiology Services (Routine) - New Request Specialty Diagnoses / Procedures Referred By Contalexis t Referred To Contact Diagnoses Chronic midline thoracic back pain Procedures THORACIC SPINE 2-3 VIEWS Roxanna Hannah MD Phone: tel: fax: Referral ID Status Reason Start Date Expiration Date V isits Requested Visits Authorized [id number] New Request 08/11/2018 1 1 Reason for Visit * Reason Comments Diabetes f/u Hypertension Encounter Details Date Type Department Care Team (Late st Contact Info) Description 08/11/2018 12:15 EDT Office Visit [facility] Medicine [address] [address] Roxanna Hannah MD [address] [place] [phone] Type 2 diabetes mellitus without complication, without long-term current use of insulin ([facility]) (Primary Dx); Mixed hyperlipidemia; Essential hypertension; Chronic [...] being taken. He does not see a restaurant general manager.Eye exam is current. Hypertension This is a [...] There is no history of kidney disease, CAD/ID or CVA. There is no history of [...] cause hand numbness CXR in end April ([facility]) showed mild thoracic DJD changes Patient Active Problem List Diagnosis ??? Routine history and physical examination of adult ??? Seizure disorder ([facility]) ??? Gastroesophageal reflux disease ??? Essential hypertension ??? Hyperlipidemia ??? Allergic rhinitis ??? Male erectile disorder ??? Atypical chest pain ??? Depression ??? Anxiety ??? Type 2 diabetes mellitus without complication, without long-term current use of insulin ([facility]) ??? Unspecified polyarthropathy or polyarthritis, shoulder [...] health care facility 08/05/2002 ??? Seizure disorder ([facility]) 08/05/2002 ??? Seizures ([facility]) Current Outpatient Prescriptions on File Prior to [...] complication, without long-term current use of insulin ([facility]) Will see what HgA1C is today DM foot exam today Consider adding Metformin if Hga1C > 7.4 - Hemoglobin A1c (3 Months) Mixed hyperlipidemia On Zocor 40 mg daily Working on diet changes Essential hypertension At goal No change at this time Chronic midline thoracic back pain Likely arthritis Will go to [facility] for thoracic XRAY - THORACIC SPINE 2-3 [...] 7.0 Result Component Type 2 diabetes mellitus ([facility]) 7.7(12/30/19 20 12:18 EST) No Maggie Andrade LPN documented as of this encounter Procedures Procedure Name Priority Date/Time Associated Diagnosis Comments HEMOGLOBIN A1C Routine 08/11/2018 12:53 EDT Type 2 diabetes mellitus without complication, without long-term current use of insulin ([facility]) documented in this encounter Results * HEMOGLOBIN A1C (08/11/2018 12:53 EDT) Hemoglobin A1C 6.8 % 08/12/2018 9:19 EDT [facility] Comment: Reference Range: <5.7% Normal 5.7-6.4% Prediabetes =>6.5% Diagnostic for diabetes (if confirmed) Goals for glycemic control in diabetes ADA 2017 For non adults with diabetes: ?? Target <7.0% For children and adolescents with type 1 diabetes: ?? Target <7.5% More or less stringent targets may be appropriate for individual patients. Est Avg Glucose 148 mg/dl 8 9:19 EDT [facility] Comment: eAG represents the A1c result expressed as average glucose in mg/dl. Blood specimen (specimen) BLOOD SPECIMEN / Unknown 08/11/2018 12:53 EDT 08/11/2018 19:20 EDT us Roxanna Hannah MD CHEMISTRY & BLOOD GAS OR DERABLES Final Result [facility] [address] [place] [address] documented in this encounter Visit Diagnoses Diagnosis Type 2 diabetes mellitus without complication, without long-term current use of insulin ([facility])- Primary Mixed hyperlipidemia Essential hypertension Unspecified essential hypertension Chronic midline thoracic back pain Need for Streptococcus pneumoniae vaccination Need for prophylactic vaccination against streptococcus pneumoniae (pneumococcus) documented in this encounter Orders Immunization/Injection Count Last Ordered Date First Ordered Date PNEUMOCOCCAL POLYSACCHARIDE (PPSV23) VACCINE (PNEUMOVAX-23) 23-VALENT =>2YO SQ/IM 1 08/11/2018 documented in this encounter Care Teams Theater Set Production Designer Relationship Specialty Start Date End Date Roxanna Hannah MD [address] [place] [phone] PCP - General 03/28/09 05/31/20 documented as of this encounter
--- OUTSIDE RECORDS SUMMARY | 2025-01-06 15:36 | XMS_ITS | Encounter Summary ---
Author Organization [facility] Address [address] [place] [address] Care Team Providers Care Agricultural Loan Officer Name Role Phone Roxanna Hannah MD Primary Care Provider + Reason for Visit * Reason Onset Date Comments Follow-up 12/17/2017 Encounter Details Date Type Department Care Team (Late st Contact Info) Description 12/17/[address] [address] Maggie Andrade LPN Follow-up Social History Tobacco [...] Was called as he was seen at [facility] on 12/16/17 for chest pain. Dx'd [...] on filedocumented in this encounter Care Teams Agricultural Loan Officer Relationship Specialty Start Date End Date Roxanna Hannah MD [address] [place] [phone] PCP - General 03/28/09 05/31/20 documented as of this encounter
--- OUTSIDE RECORDS SUMMARY | 2025-01-06 15:36 | XMS_ITS | Encounter Summary ---
Author Organization [facility] Address [address] [place] [address] Care Team Providers Care Risk And Insurance Manager Name Role Phone Roxanna Hannah MD Primary Care Provider + Reason for Visit * Reason Comments Cough last week starteed w ith a cold, dizzy almost passed out today, has pneumonia alot, Encounter Details Date Type Department Care Team (Late st Contact Info) Description 03/20/2018 13:15 EDT Office Visit [address] [address] Geno Acuña, BLOWER [employer] FURNACE Viral URI with cough (Primary Dx); Benign [...] HPI Cough Mario felt off balance at [facility] today. He did not feel like he [...] health care facility 08/05/2002 ??? Seizure disorder ([facility]) 08/05/2002 ??? Seizures ([facility]) Current Outpatient Prescriptions on File Prior [...] benign documented in this encounter Care Teams Risk And Insurance Manager Relationship Specialty Start Date End Date Roxanna Hannah MD [address] [place] [phone] PCP - General 03/28/09 05/31/20 documented as of this encounter
--- OUTSIDE RECORDS SUMMARY | 2025-01-06 15:36 | XMS_ITS | Encounter Summary ---
Author Organization [facility] Address [address] [place] [address] Care Team Providers Care Sandblaster Stone Name Role Phone Roxanna Hannah MD Primary Care Provider + Encounter Details Date Type Department Care Team (Late st Contact Info) Description 08/27/2018 Orders Only [facility] Medicine [address] [phone] Vivien Cleveland LPN Need for shingles vaccine [...] due for Shingrix-please sign and route to [facility] to schedule. Order signed, patient scheduled for [...] Result Component Type 2 diabetes mellitus ([facility]) 7.7(12/30/19 20 12:18 EST) No Maggie Andrade LPN documented as of this encounter Visit Diagnoses Diagnosis Need for shingles vaccine- Primary Need for prophylactic vaccination and inoculation against other viral diseases documented in this encounter Orders Immunization/Injection Count Last Ordered Date First Ordered Date SHINGRIX (ZOSTER VACCINE, RECOMBINANT) IM 1 09/12/2018 documented in this encounter Care Teams Sandblaster Stone Relationship Specialty Start Date End Date Roxanna Hannah MD [address] [place] [phone] PCP - General 03/28/09 05/31/20 documented as of this encounter
--- OUTSIDE RECORDS SUMMARY | 2025-01-06 15:36 | XMS_ITS | Encounter Summary ---
Author Organization [facility] Address [address] [place] [address] Care Team Providers Care Content Editor Name Role Phone Roxanna Hannah MD Primary Care Provider + Reason for Visit * Reason Comments Immunizations Encounter Details Date Type Department Care Team (Late st Contact Info) Description 09/12/2018 10:15 EDT Nurse Only [address] [phone] Unknown, Provider, Roshan Rome MD [address] [place] [phone] Nurse, [facility] , RN Need for shingles vaccine (Primary [...] Type 2 diabetes mellitus ([facility]) 7.7(12/30/19 20 12:18 EST) No Maggie Andrade LPN documented as of this encounter Visit Diagnoses Diagnosis Need for shingles vaccine- Primary Need for prophylactic vaccination and inoculation against other viral diseases documented in this encounter Orders Immunization/Injection Count Last Ordered Date First Ordered Date SHINGRIX (ZOSTER VACCINE, RECOMBINANT) IM 1 09/12/2018 documented in this encounter Care Teams Content Editor Relationship Specialty Start Date End Date Roxanna Hannah MD [address] [place] [phone] PCP - General 03/28/09 05/31/20 documented as of this encounter
--- OUTSIDE RECORDS SUMMARY | 2025-01-06 15:36 | XMS_ITS | Encounter Summary ---
Author Organization [facility] Address [address] [place] [address] Care Team Providers Care Cnc Supervisor Name Role Phone Roxanna Hannah MD Primary Care Provider + Reason for Visit * Reason Onset Date Comments Hand Injury 03/18/2018 Encounter Details Date Type Department Care Team (Late st Contact Info) Description 03/18/[address] [address] Maggie Andrade LPN Hand Injury Social History [...] was called as he was seen at [facility] on after having his right [...] on filedocumented in this encounter Care Teams Cnc Supervisor Relationship Specialty Start Date End Date Roxanna Hannah MD [address] [place] [phone] PCP - General 03/28/09 05/31/20 documented as of this encounter
--- OUTSIDE RECORDS SUMMARY | 2025-01-06 15:37 | XMS_ITS | Encounter Summary ---
Author Organization [facility] Address [address] [place] [address] Care Team Providers Care Stacker Driver Name Role Phone Roxanna Hannah MD Primary Care Provider + Reason for Visit * Reason Onset Date Comments Medications Refill 09/09/2014 Encounter Details Date Type Department Care Team (Late st Contact Info) Description 09/09/2014 Refill [facility] Medicine [address] [address] Roxanna Hannah MD [address] [place] [phone] Medications Refill Social History Tobacco Use Types [...] Requested: Depakote # [phone] w/ RF Pharmacy: [facility] Last Refill Date: 08/19/14 Last Visit [...] this encounter Visit Diagnoses Diagnosis Seizure disorder ([facility])- Primary Unspecified epilepsy without mention of intractable epilepsy documented in this encounter Discontinued Medications Medication Sig Discontinue Reason Start Date End Da te divalproex (DEPAKOTE) 500 mg delayed release tablet TAKE 3 TABLETS AT BEDTIME. Reorder 08/19/2014 09/09/2014 documented as of this encounter Care Teams Stacker Driver Relationship Specialty Start Date End Date Roxanna Hannah MD [address] [place] [phone] PCP - General 03/28/09 05/31/20 documented as of this encounter
--- OUTSIDE RECORDS SUMMARY | 2025-01-06 15:37 | XMS_ITS | Encounter Summary ---
Author Organization [facility] Address [address] [place] [address] Care Team Providers Care Manager Neonatal Name Role Phone Roxanna Hannah MD Primary Care Provider + Unknown, Provider Primary Care Provider Unava ilable Roxanna Hannah MD Primary Care Provider + Rebeca Garcia Primary Care Provider + Reason for Visit * Reason Comments Other Encounter Details Date Type Department Care Team (Late st Contact Info) Description [facility] [address] [id number] Roxanna Hannah MD [address] [place] [address] [phone] Other Social History Tobacco Use Types Packs/Day [...] documented as of this encounter Care Teams Manager Neonatal Relationship Specialty Start Date End Date Roxanna Hannah MD [address] [place] [address] [phone] PCP - General 03/28/09 05/31/20 Unknown, Provider, [address] [place] [phone] PCP - General 06/01/20 09/11/20 Roxanna Hannah MD [address] [place] [phone] PCP - General Family Medicine - Primary Care 09/12/20 12/08/20 Rebeca Garcia PA [address] [place] [phone] PCP - General 11/25/21 documented as of this encounter
--- OUTSIDE RECORDS SUMMARY | 2025-01-06 15:37 | XMS_ITS | Encounter Summary ---
Author Organization [facility] Address [address] [place] [address] Care Team Providers Care Customer Contact Sales Associate Name Role Phone Roxanna Hannah MD Primary Care Provider + Reason for Visit * Reason Comments MEDICATION CHECK Encounter Details Date Type Department Care Team (Late st Contact Info) Description 12/27/2014 11:30 EST Office Visit [facility] [address] [place] [address] Roxanna Hannah MD [address] [place] [address] [phone] Seizure disorder ([facility]) (Primary Dx); Hyperlipidemia; Essential hypertension; Impaired [...] There is no history of kidney disease, CAD/NH or a thyroid problem. There is no [...] (CMP) Routine 12/27/2014 12:00 EST Seizure disorder ([facility]) Essential hypertension HEMOGLOBIN A1C Routine 12/27/2014 11:48 EST Impaired glucose tolerance LIPID PROFILE (INCLUDES CHOLESTEROL, TRIGLYCERIDES, HDL, LDL) Routine 12/27/2014 11:48 EST Hyperlipidemia documented in this encounter Results * COMPREHENSIVE METABOLIC PANEL (CMP) (12/27/2014 12:00 EST) Potassium 4.8 3.5 - 5.0 mEq/L 12/27/2014 19:13 [facility] Sodium 142 136 - 145 mEq/L 12/27/2014 19:13 [facility] Chloride 102 96 - 110 mEq/L 12/27/2014 19:13 [facility] CO2 31 24 - 32 mEq/L 12/27/2014 19:13 [facility] Total Alkaline Phosphatase 65 38 - 126 U/L 12/27/2014 19:13 [facility] Bilirubin, Total <0.5 <1.4 mg/dl 12/27/19 15 19:13 [facility] AST 25 15 - 46 U/L 12/27/2014 19:13 [facility] ALT 26 21 - 72 U/L 12/27/2014 19:13 [facility] Albumin 4.2 3.4 - 4.9 g/dl 12/27/2014 19:13 [facility] Total Protein 6.9 6.5 - 8.3 g/dl 12/27/2014 19:13 [facility] Creatinine 0.84 0.66 - 1.25 mg/dl 12/27/2014 19:13 [facility] GFR, Calculated >60 >60 ml/min/1.7 3m2 12/27/2014 19:13 [facility] BUN 23 10 - 26 mg/dl 12/27/2014 19:13 [facility] Calcium 9.7 8.5 - 10.5 mg/dl 12/27/2014 19:13 [facility] Calculated Calcium 9.9 8.5 - 10.5 mg/dl 12/27/2014 19:13 [facility] Glucose, Serum 89 70 - 100 mg/dl 12/27/2014 19:13 [facility] Fasting? Unknown 12/27/2014 18:57 [facility] Blood specimen (specimen) BLOOD SPECIMEN / Unknown 12/27/2014 12:00 EST 12/27/2014 18:56 EST us Roxanna Hannah MD CHEMISTRY & BLOOD GAS OR DERABLES Final Result [facility] [address] [place] [address] * LIPID PROFILE (INCLUDES CHOLESTEROL, TRIGLYCERIDES, HDL, LDL) (12/27/2014 11:48 EST) Cholesterol 155 mg/dl 12/27/2014 19:11 [facility] Comment: Desirable:<200 Borderline High:200-239 High:>wh=995 Triglycerides 81 mg/dl 12/27/2014 19:11 [facility] Comment: Normal:<150 Borderline High:150-199 High:200-499 Very High:>zs=954 HDL 42 mg/dl 12/27/2014 19:11 [facility] Comment: Low:<40 Normal:40-60 Desirable: >60 LDL, Calculated 97 mg/dl 5 19:11 [facility] Comment: Optimal:<100 Near Optimal:100-129 Borderline High:130-159 High:160-189 Very High:>zl=322 Chol/HDL Ratio 3.7 12/27/2014 19:11 [facility] Fasting? Unknown 12/27/2014 18:56 [facility] Non HDL Cholesterol 113 mg/dl 12/27/2014 19:11 [facility] Comment: Desirable:<130 Borderline:130-159 High: 160-189 Very High: >yb=482 Blood specimen (specimen) BLOOD SPECIMEN / Unknown 12/27/2014 11:48 EST 12/27/2014 18:56 EST Roxanna Hannah MD CHEMISTRY & BLOOD GAS OR DERABLES Final Result Performing Organization Address [facility] Co de Phone Number [facility] [address] [place] [address] * HEMOGLOBIN A1C (12/27/2014 11:48 EST) Hemoglobin A1C 5.7 % 12/28/2014 10:20 [facility] Comment: Reference Range: <5.7% Normal 5.7-6.4% Increased risk for diabetes =>6.5% Diagnostic for diabetes (if confirmed) The A1c goal for non adults in general is <7%. The A1c goal for selected patients may be significantly lower than 7% if this can be achieved without significant hypoglycemia or other adverse effects of treatment. Est Avg Glucose 117 mg/dl 5 10:20 [facility] Comment: eAG represents the A1c result expressed as average glucose in mg/dl. Blood specimen (specimen) BLOOD SPECIMEN / Unknown 12/27/2014 11:48 EST 12/27/2014 18:56 EST Roxanna Hannah MD CHEMISTRY & BLOOD GAS OR DERABLES Final Result Performing Organization Address [facility] Co de Phone Number [facility] [address] [place] [address] documented in this encounter Visit Diagnoses Diagnosis Seizure disorder ([facility])- Primary Unspecified epilepsy without mention of [...] documented as of this encounter Care Teams Customer Contact Sales Associate Relationship Specialty Start Date End Date Roxanna Hannah MD [address] [place] [phone] PCP - General 03/28/09 05/31/20 documented as of this encounter
--- OUTSIDE RECORDS SUMMARY | 2025-01-06 15:37 | XMS_ITS | Encounter Summary ---
Author Organization [facility] Address [address] [place] [address] Care Team Providers Care Precinct Captain Name Role Phone Roxanna Hannah MD Primary Care Provider + Reason for Referral * Radiology Services (Routine) - Closed Specialty Diagnoses / Procedures Referred By Contac t Referred To Contact Diagnoses Shoulder pain, acute, left Procedures SHOULDER 2 OR MORE VIEWS Roxanna Hannah MD Phone: tel: fax: Referral ID Status Reason Start Date Expiration Date Visits Re quested Visits Authorized [id number] Closed 10/25/2015 1 1 Reason for Visit * Reason Comments Shoulder Pain Left shoulder pain. Did heavy lifting this week. Encounter Details Date Type Department Care Team (Late st Contact Info) Description 10/25/2015 16:45 EST Office Visit [facility] Family Medicine [address] [address] Roxanna Hannah MD [address] [place] [phone] Shoulder pain, acute, left (Primary Dx) Social [...] or acute bony process Will go to [facility] for XRAY in next few days Heat, stretches F/u prn - SHOULDER 2 OR MORE VIEWS Other Orders - DOCOSAHEXANOIC ACID/EPA (FISH OIL ORAL); Take 1 Capsule by mouth daily - GLUC/ROSIBEL-MSM#1/VIT C/ZAYNAB/BOR ([id number] COMPLEX ORAL); Take 1 Tab by mouth [...] 11/05/2023 added in this encounter Care Teams Precinct Captain Relationship Specialty Start Date End Date Roxanna Hannah MD [address] [place] [phone] PCP - General 03/28/09 05/31/20 documented as of this encounter
--- OUTSIDE RECORDS SUMMARY | 2025-01-06 15:37 | XMS_ITS | Encounter Summary ---
Author Organization [facility] Address [address] [place] [address] Care Team Providers Care School Examiner Name Role Phone Roxanna Hannah MD Primary Care Provider + Reason for Visit * Reason Onset Date Comments Dizziness 04/15/2017 Encounter Details Date Type Department Care Team (Late st Contact Info) Description 04/15/[address] [address] Maggie Andrade LPN Dizziness Social History Tobacco [...] Was called as he was seen at [facility] on 04/12/17 for dizziness. Pt. [...] on filedocumented in this encounter Care Teams School Examiner Relationship Specialty Start Date End Date Roxanna Hannah MD [address] [place] [phone] PCP - General 03/28/09 05/31/20 documented as of this encounter
--- OUTSIDE RECORDS SUMMARY | 2025-01-06 15:37 | XMS_ITS | Encounter Summary ---
Author Organization [facility] Address [address] [place] [address] Care Team Providers Care Litigation Paralegal Name Role Phone Roxanna Hannah MD Primary Care Provider + Reason for Visit * Reason Onset Date Comments Prior Auth, Other (i.e. radiology, etc.) 017 Encounter Details Date Type Department Care Team (Late st Contact Info) Description 04/23/[address] [id number] Roxanna Hannah MD [address] [place] [address] [phone] Prior Auth, Other (i.e. radiology, etc.) Social [...] - Hallie Parisi - 04/26/2017 0905 EDT [employer], patient's insurance has denied his CT Chest once again, even after submission of recent x-ray at [facility] with recommendation from the radiologist. I have placed all the paperwork in your mailbox. * Telephone Encounter - Hallie Parisi - 04/23/2017 0956 EDT Spoke with sales representative publications [facility] about the [facility]. They did [...] on filedocumented in this encounter Care Teams Litigation Paralegal Relationship Specialty Start Date End Date Roxanna Hannah MD [address] [place] [phone] PCP - General 03/28/09 05/31/20 documented as of this encounter
--- OUTSIDE RECORDS SUMMARY | 2025-01-06 15:37 | XMS_ITS | Encounter Summary ---
Author Organization [facility] Address [address] [place] [address] Care Team Providers Care Biscuitware Brusher Name Role Phone Roxanna Hannah MD Primary Care Provider + Reason for Visit * Reason Onset Date Comments CT Scan 04/18/2017 Encounter Details Date Type Department Care Team (Late st Contact Info) Description 04/18/[address] [phone] Roxanna Hannah MD [address] [place] [phone] CT Scan Social History Tobacco Use Types [...] meeting. CT was denied by patient's insurance, [employer]. If Dr. Hannah wants to appeal, she may call: [phone]. His ID # [id number]. documented in this encounter Plan of Treatment [...] on filedocumented in this encounter Care Teams Biscuitware Brusher Relationship Specialty Start Date End Date Roxanna Hannah MD [address] [place] [phone] PCP - General 03/28/09 05/31/20 documented as of this encounter
--- OUTSIDE RECORDS SUMMARY | 2025-01-06 15:37 | XMS_ITS | Encounter Summary ---
Author Organization [facility] Address [address] [place] [address] Care Team Providers Care Auto Dealership Porter Name Role Phone Roxanna Hannah MD Primary Care Provider + Reason for Visit * Reason Onset Date Comments Post-ED Follow Up 06/03/2015 [facility] 06/03/15 Encounter Details Date Type Department Care Team (Late st Contact Info) Description 06/08/[address] [phone] Roxanna Hannah MD [address] [place] [address] [phone] Post-ED Follow Up ([facility] 06/03/15) Social History Tobacco Use Types Packs/Day [...] not identify name. Mario was seen at [facility] on 06/03/15 for balance issues. Calling to [...] on filedocumented in this encounter Care Teams Auto Dealership Porter Relationship Specialty Start Date End Date Roxanna Hannah MD [address] [place] [phone] PCP - General 03/28/09 05/31/20 documented as of this encounter
--- OUTSIDE RECORDS SUMMARY | 2025-01-06 15:37 | XMS_ITS | Encounter Summary ---
Author Organization [facility] Address [address] [place] [address] Care Team Providers Care Furniture Sander Name Role Phone Roxanna Hannah MD Primary Care Provider + Reason for Visit * Reason Onset Date Comments Dizziness 11/14/2016 Hypertension 11/14/2016 Encounter Details Date Type Department Care Team (Late st Contact Info) Description 11/14/[address] [phone] Roxanna Hannah MD [address] [place] [phone] Dizziness; Hypertension Social History Tobacco Use [...] for pt. As he was seen at [facility] in on 11/14/16. Dx'd with Anxiety. [...] On my way to the farm in [place]. I got really dizzy. I got to [...] asked if there was an appt at [facility] today. I have reviewed their schedule and shared there iscurrently not an available appt this Am. Patient instructed to report to [facility] ER now. He shares I've been in the cow barn. They'd kick me out. There are a couple of things I'd like to follow up and and then I'll go wash up and change, then I can go I've encouraged patient again to report to ER. He continues to adamantly refuse. Mario understands risks of avoiding immediate medical attention. He did agree to notify the Farm's glove cleaner and his sonwho is currently working with him so they are aware. [facility] will be notified. Alva Medellin RN * [...] on filedocumented in this encounter Care Teams Furniture Sander Relationship Specialty Start Date End Date Roxanna Hannah MD [address] [place] [phone] PCP - General 03/28/09 05/31/20 documented as of this encounter
--- OUTSIDE RECORDS SUMMARY | 2025-01-06 15:37 | XMS_ITS | Encounter Summary ---
Author Organization [facility] Address [address] [place] [address] Care Team Providers Care Hair Boiler Name Role Phone Roxanna Hannah MD Primary Care Provider + Reason for Visit * Reason Onset Date Comments Medications Refill 12/20/2014 Encounter Details Date Type Department Care Team (Late st Contact Info) Description 12/20/2014 Refill [facility] Medicine [address] [address] Roxanna Hannah MD [address] [place] [address] [phone] Medications Refill Social History Tobacco Use Types [...] EST Medication(s) Requested: Simvastatin and HCTZ Pharmacy: [facility] Last Refill Date: 08/16/14 (simvastatin) and 10/14/14 (HCTZ) Last Visit Date: 10/27/13 Next Visit Date: 12/27/14 Is patient out of medication? yes [facility] [place] 12/20/2014 13:13 documented in this encounter [...] documented as of this encounter Care Teams Hair Boiler Relationship Specialty Start Date End Date Roxanna Hannah MD [address] [place] [phone] PCP - General 03/28/09 05/31/20 documented as of this encounter
--- OUTSIDE RECORDS SUMMARY | 2025-01-06 15:37 | XMS_ITS | Encounter Summary ---
Author Organization [facility] Address [address] [place] [address] Care Team Providers Care Vibrator Equipment Tester Name Role Phone Roxanna Hannah MD Primary Care Provider + Reason for Visit * Reason Onset Date Comments Medications Refill 08/19/2014 Encounter Details Date Type Department Care Team (Late st Contact Info) Description 08/19/2014 Refill [facility] Medicine [address] [address] Roxanna Hannah MD [address] [place] [address] [phone] Medications Refill Social History Tobacco Use Types [...] 1258 EDT Medication(s) Requested: Depakote 500mg Pharmacy: [facility] Last Refill Date: 08/07/14 (local pharmacy) Last Visit Date: 03/04/14 Next Visit Date: Visit date not found Is patient out of medication? No but will need a 90 day supply with 3 refills to mail order smita Parisi 08/19/2014 12:58 documented in this encounter [...] documented as of this encounter Care Teams Vibrator Equipment Tester Relationship Specialty Start Date End Date Roxanna Hannah MD [address] [place] [address] [phone] PCP - General 03/28/09 05/31/20 documented as of this encounter
--- OUTSIDE RECORDS SUMMARY | 2025-01-06 15:37 | XMS_ITS | Encounter Summary ---
Author Organization [facility] Address [address] [place] [address] Care Team Providers Care Blind Eyeletter Name Role Phone Roxanna Hannah MD Primary Care Provider + Reason for Visit * Reason Onset Date Comments Medications Refill 12/27/2016 Encounter Details Date Type Department Care Team (Late st Contact Info) Description 12/27/2016 Refill [facility] Medicine [address] [address] Roxanna Hannah MD [address] [place] [address] [phone] Medications Refill Social History Tobacco Use Types [...] he does have a prescription coming from [facility]. * Telephone Encounter - Maritza Cleaning RN - 12/27/2016 1228 EST LM for pt to call office back regarding Depakote. A 2 week supply of Depakote [facility]. Does he have an Rx of Depakote coming from [facility] or do we need to send [...] Depakote 04/10/16 #270 3 refills (sent to [facility]) Preferred Pharmacy: [facility] Is patient out of medication? Yes - He is waiting for his [facility] mail order prescription. Canwe send in a [...] documented as of this encounter Care Teams Blind Eyeletter Relationship Specialty Start Date End Date Roxanna Hannah MD [address] [place] [address] [phone] PCP - General 03/28/09 05/31/20 documented as of this encounter
--- OUTSIDE RECORDS SUMMARY | 2025-01-06 15:37 | XMS_ITS | Encounter Summary ---
Author Organization [facility] Address [address] [place] [address] Care Team Providers Care Ruby On Rails Developer Name Role Phone Roxanna Hannah MD Primary Care Provider + Reason for Visit * Reason Comments Other Encounter Details Date Type Department Care Team (Late st Contact Info) Description 02/05/2016 [facility] Medicine [address] [address] Roxanna Hannah MD [address] [place] [address] [phone] Other Social History Tobacco Use Types Packs/Day [...] and Depakote #270 w 1 rf Pharmacy: [facility] Last Refill Date: 09/05/15 for [...] documented as of this encounter Care Teams Ruby On Rails Developer Relationship Specialty Start Date End Date Roxanna Hannah MD [address] [place] [phone] PCP - General 03/28/09 05/31/20 documented as of this encounter
--- OUTSIDE RECORDS SUMMARY | 2025-01-06 15:37 | XMS_ITS | Encounter Summary ---
Author Organization [facility] Address [address] [place] [address] Care Team Providers Care Heel Turner Name Role Phone Roxanna Hannah MD Primary Care Provider + Reason for Visit * Reason Onset Date Comments Medications Refill 11/28/2014 Encounter Details Date Type Department Care Team (Late st Contact Info) Description 11/28/2014 Refill [facility] Family Medicine [address] [address] Roxanna Hannah MD [address] [place] [address] [phone] Medications Refill Social History Tobacco Use Types [...] on filedocumented in this encounter Care Teams Heel Turner Relationship Specialty Start Date End Date Roxanna Hannah MD [address] [place] [phone] PCP - General 03/28/09 05/31/20 documented as of this encounter
--- OUTSIDE RECORDS SUMMARY | 2025-01-06 15:37 | XMS_ITS | Encounter Summary ---
Author Organization [facility] Address [address] [place] [address] Care Team Providers Care Senior Attorney Name Role Phone Roxanna Hannah MD Primary Care Provider + Reason for Visit * Reason Onset Date Comments Labs Only 02/27/2017 Encounter Details Date Type Department Care Team (Late st Contact Info) Description 02/27/[address] [phone] Roxanna Hannah MD [address] [place] [address] [phone] Labs Only Social History Tobacco Use Types [...] Rfx PCR Negative Negative 03/06/2017 10:54 EDT [facility] Comment:Reference Range: Neg ative Blood specimen (specimen) BLOOD SPECIMEN / Unknown 03/05/2017 12:20 EDT 03/05/2017 18:54 EDT us Roxanna Hannah MD CHEMISTRY & BLOOD GAS OR DERABLES Final Result Performing Organization Address City/[facility]/ZIP Co de Phone Number [facility] [address] [place] [address] * HIV 1/2 ANTIBODY (03/05/2017 12:20 EDT) HIV 1/2 Antibody Negative 03/06/20 17 12:07 EDT [facility] Comment: If acute HIV-1 infection is suspected in a high risk patient, submit plasma specimen for HIV-1 RNA quantification test. Reference Range: ??Negative Assayed utilizing [employer] chemiluminescent technology. Blood specimen (specimen) BLOOD SPECIMEN / Unknown 03/05/2017 12:20 EDT 03/05/2017 18:54 EDT us Roxanna Hannah MD IMMUNOLOGY AND SEROLOGY ORDERABLES Final Result Performing Organization Address [facility] Co de Phone Number [facility] [address] [place] [address] * VALPROIC ACID LEVEL (03/05/2017 12:20 EDT) Valproic Acid 89.1 50.0 - 100.0 ug/ml 03/05/2017 20:10 EDT [facility] Blood specimen (specimen) BLOOD SPECIMEN / Unknown 03/05/2017 12:20 EDT 03/05/2017 18:54 EDT us Roxanna Hannah MD CHEMISTRY & BLOOD GAS OR DERABLES Final Result Performing Organization Address City/[facility]/ZIP Co de Phone Number [facility] [address] [place] [address] * HEMOGLOBIN A1C (03/05/2017 12:20 EDT) Hemoglobin A1C 6.0 % 03/06/2017 9:46 T [facility] Comment: Reference Range: <5.7% Normal 5.7-6.4% Increased risk for diabetes =>6.5% Diagnostic for diabetes (if confirmed) The A1c goal for non adults in general is <7%. The A1c goal for selected patients may be significantly lower than 7% if this can be achieved without significant hypoglycemia or other adverse effects of treatment. Est Avg Glucose 126 mg/dl 7 9:46 T [facility] Comment: eAG represents the A1c result expressed as average glucose in mg/dl. Blood specimen (specimen) BLOOD SPECIMEN / Unknown 03/05/2017 12:20 EDT 03/05/2017 18:54 EDT us Roxanna Hannah MD CHEMISTRY & BLOOD GAS OR DERABLES Final Result Performing Organization Address City/State/[facility] Co de Phone Number [facility] [address] [place] [address] * LIPID PROFILE (INCLUDES CHOLESTEROL, TRIGLYCERIDES, HDL, LDL) (03/05/2017 12:20 EDT) Cholesterol 137 mg/dl 03/05/2017 19:29 [facility] Comment: Desirable:<200 Borderline High:200-239 High:>xk=971 Triglycerides 104 mg/dl 03/05/2017 19:29 [facility] Comment: Normal:<150 Borderline High:150-199 High:200-499 Very High:>hc=376 HDL 39 mg/dl 03/05/2017 19:29 [facility] Comment: Low:<40 Normal:40-60 Desirable: >60 LDL, Calculated 77 mg/dl 7 19:29 [facility] Comment: Optimal:<100 Near Optimal:100-129 Borderline High:130-159 High:160-189 Very High:>kh=557 Chol/HDL Ratio 3.5 03/05/2017 19:29 [facility] Fasting? Unknown 03/05/2017 18:55 [facility] Non HDL Cholesterol 98 mg/dl 03/05/2017 19:29 [facility] Comment: Desirable:<130 Borderline:130-159 High: 160-189 Very High: >iy=841 Blood specimen (specimen) BLOOD SPECIMEN / Unknown 03/05/2017 12:20 EDT 03/05/2017 18:54 EDT us Roxanna Hannah MD CHEMISTRY & BLOOD GAS OR DERABLES Final Result [facility] [address] [place] [address] * (ABNORMAL) BASIC METABOLIC PANEL (03/05/2017 12:20 EDT) Sodium 148(H) 136 - 145 mEq/L 03/05/2017 19:29 [facility] Potassium 4.6 3.5 - 5.0 mEq/L 03/05/2017 19:29 [facility] Chloride 105 96 - 110 mEq/L 03/05/2017 19:29 [facility] CO2 30 22 - 32 mEq/L 03/05/2017 19:29 [facility] BUN 25 10 - 26 mg/dl 03/05/2017 19:29 [facility] Creatinine 1.04 0.66 - 1.25 mg/dl 03/05/2017 19:29 [facility] GFR, Calculated 78 >60 ml/min/1.7 3m2 03/05/2017 19:29 [facility] Comment: eGFR calculated using CKD-EPI equation for non Americans. Multiply eGFR by 1.16 for Americans. Calcium 10.0 8.5 - 10.5 mg/dl 03/05/2017 19:29 [facility] Calculated Calcium 9.4 8.5 - 10.5 mg/dl 03/05/2017 19:29 [facility] Glucose, Serum 83 70 - 100 mg/dl 03/05/2017 19:29 [facility] Fasting? Unknown 03/05/2017 18:55 [facility] Blood specimen (specimen) BLOOD SPECIMEN / Unknown 03/05/2017 12:20 EDT 03/05/2017 18:54 EDT us Roxanna Hannah MD CHEMISTRY & BLOOD GAS OR DERABLES Final Result [facility] [address] [place] [address] documented in this encounter Visit Diagnoses Diagnosis [...] diseases documented in this encounter Care Teams Senior Attorney Relationship Specialty Start Date End Date Roxanna Hannah MD [address] [place] [phone] PCP - General 03/28/09 05/31/20 documented as of this encounter
--- OUTSIDE RECORDS SUMMARY | 2025-01-06 15:37 | XMS_ITS | Encounter Summary ---
Author Organization [facility] Address [address] [place] [address] Care Team Providers Care Stretch Box Tender Name Role Phone Roxanna Hannah MD Primary Care Provider + Reason for Visit * Reason Comments Skin Lesion follow up skin irrit ation on left arm and wrist Encounter Details Date Type Department Care Team (Late st Contact Info) Description 06/27/2016 13:00 EDT Office Visit [facility] [address] [phone] Latesha Ochoa MD [address] [place] [phone] Arm wound, left, subsequent encounter [...] mouth or on tongue. Was seen in [facility]. Rx topical steroid at [facility]. On Prednisone wean now. Will complete Prednisone [...] daily. 16 g 2 ??? GLUC/ROSIBEL-MSM#1/VIT C/ZAYNAB/BOR ([id number] COMPLEX ORAL) Take 1 Tab by mouth [...] Result No polys seen 06/27/2016 23:04 EDT [facility] Result Few STAPHYLOCOCCU S, COAGULASE NEGATIVE 06/29/2016 10:15 EDT [facility] Gram Smear Result No bacteria seen 06/27/2016 23:04 EDT [facility] Specimen of unknown material (specimen) SPECIMEN FROM SKIN / Unknown 06/27/2016 13:14 EDT 06/27/2016 19:30 EDT Comment:Specimen submitted o n a swab Latesha Ochoa MD MICROBIOLOGY - GENERAL OR DERABLES Final Result Performing Organization Address City/State/[facility] Co de Phone Number [facility] [address] [place] [address] documented in this encounter Visit Diagnoses Diagnosis Arm wound, left, subsequent encounter- Primary Pustules determined by examination documented in this encounter Care Teams Stretch Box Tender Relationship Specialty Start Date End Date Roxanna Hannah MD [address] [place] [phone] PCP - General 03/28/09 05/31/20 documented as of this encounter
--- OUTSIDE RECORDS SUMMARY | 2025-01-06 15:37 | XMS_ITS | Encounter Summary ---
Author Organization [facility] Address [address] [place] [address] Care Team Providers Care Ensemble Member Name Role Phone Roxanna Hannah MD Primary Care Provider + Reason for Visit * Reason Onset Date Comments Results 11/19/2016 Encounter Details Date Type Department Care Team (Late st Contact Info) Description 11/19/[address] [phone] Roxanna Hannah MD [address] [place] [address] [phone] Results Social History Tobacco Use Types Packs/Day [...] - Isaura Ray - 11/19/2016 1603 EST [facility] fax[facility] xray result. * Telephone Encounter - Heydi Adams - 11/19/2016 1520 EST Caller: Thanh Test Results Requested: chest x-ray Date of Test: 11/14/16 Where was test performed: [facility] documented in this encounter Plan of [...] on filedocumented in this encounter Care Teams Ensemble Member Relationship Specialty Start Date End Date Roxanna Hannah MD [address] [place] [phone] PCP - General 03/28/09 05/31/20 documented as of this encounter
--- OUTSIDE RECORDS SUMMARY | 2025-01-06 15:37 | XMS_ITS | Encounter Summary ---
Author Organization [facility] Address [address] [place] [address] Care Team Providers Care Manager Audit Name Role Phone Roxanna Hannah MD Primary Care Provider + Reason for Visit * Reason Comments Rash recurrent rash on le ft arm , follow up ER in [place] 06-17-16 Encounter Details Date Type Department Care Team (Late st Contact Info) Description 06/22/2016 11:30 EDT Office Visit [address] [address] Unknown, Provider, Joseline English MD [address] [place] [address] [phone] Rash and nonspecific skin eruption (Primary Dx) [...] left arm , follow up ER in [place] 16 HPI Rash Started 3 weeks ago, started as flat red lesion on left forearm, with itching, denies pain Now 3.5 cm x 4cm and raised, beefy pink appearance, has been weepy with drainage, has been keeping it covered. 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 16 g 2 ??? GLUC/ROSIBEL-MSM#1/VIT C/ZAYNAB/BOR ([id number] COMPLEX ORAL) Take 1 Tab by mouth [...] Mack M.D. PGY1 Family Medicine Pager # [phone] 17:56 documented in this encounter Procedure Notes [...] eruption documented in this encounter Care Teams Manager Audit Relationship Specialty Start Date End Date Roxanna Hannah MD [address] [place] [phone] PCP - General 03/28/09 05/31/20 documented as of this encounter
--- OUTSIDE RECORDS SUMMARY | 2025-01-06 15:37 | XMS_ITS | Encounter Summary ---
Author Organization [facility] Address [address] [place] [address] Care Team Providers Care Textile Cutting Machine Operator Name Role Phone Roxanna Hannah MD Primary Care Provider + Reason for Visit * Reason Onset Date Comments Medications Refill 08/07/2014 Encounter Details Date Type Department Care Team (Late st Contact Info) Description 08/07/2014 Refill [facility] Medicine [address] [address] Roxanna Hannah MD [address] [place] [address] [phone] Medications Refill Social History Tobacco Use Types [...] repeat in one month Will forward to [facility] staff to schedule this [...] documented as of this encounter Care Teams Textile Cutting Machine Operator Relationship Specialty Start Date End Date Roxanna Hannah MD [address] [place] [phone] PCP - General 03/28/09 05/31/20 documented as of this encounter
--- OUTSIDE RECORDS SUMMARY | 2025-01-06 15:37 | XMS_ITS | Encounter Summary ---
Author Organization [facility] Address [address] [place] [address] Care Team Providers Care Homicide Squad Lieutenant Name Role Phone Roxanna Hannah MD Primary Care Provider + Reason for Visit * Reason Onset Date Comments Medications Refill 03/26/2016 Encounter Details Date Type Department Care Team (Late st Contact Info) Description 03/26/2016 Refill [facility] Medicine [address] [address] Roxanna Hannah MD [address] [place] [address] [phone] Medications Refill Social History Tobacco Use Types [...] EDT Medication(s) Requested: Simvastatin 40 mg Pharmacy: [facility] Last Refill Date: 01/09/15 qty [...] documented as of this encounter Care Teams Homicide Squad Lieutenant Relationship Specialty Start Date End Date Roxanna Hannah MD [address] [place] [phone] PCP - General 03/28/09 05/31/20 documented as of this encounter
--- OUTSIDE RECORDS SUMMARY | 2025-01-06 15:37 | XMS_ITS | Encounter Summary ---
Author Organization [facility] Address [address] [place] [address] Care Team Providers Care Archives Technician Name Role Phone Roxanna Hannah MD Primary Care Provider + Reason for Visit * Reason Comments Hypertension Hyperlipidemia Seizures Encounter Details Date Type Department Care Team (Late st Contact Info) Description 04/10/2016 14:45 EDT Office Visit [facility] Medicine [address] [address] Roxanna Hannah MD [address] [place] [address] [phone] Essential hypertension with goal blood pressure less than 130/85 (Primary Dx); Other hyperlipidemia; Impaired glucose tolerance; Seizure disorder ([facility]) Social History Tobacco Use Types Packs/Day Years [...] There is no history of kidney disease, CAD/NE or athyroid problem. There is no history [...] 08/05/2002 ??? Routine general medical examination at [facility] care facility 08/05/2002 ??? GERD (gastroesophageal [...] daily. 16 g 2 ??? GLUC/ROSIBEL-MSM#1/VIT C/ZAYNAB/BOR ([id number] COMPLEX ORAL) Take 1 Tab by mouth [...] tolerance Impaired glucose tolerance test Seizure disorder ([facility]) Unspecified epilepsy without mention of intractable epilepsy [...] documented as of this encounter Care Teams Archives Technician Relationship Specialty Start Date End Date Roxanna Hannah MD [address] [place] [phone] PCP - General 03/28/09 05/31/20 documented as of this encounter
--- OUTSIDE RECORDS SUMMARY | 2025-01-06 15:37 | XMS_ITS | Encounter Summary ---
Author Organization [facility] Address [address] [place] [address] Care Team Providers Care Chair Inspector Name Role Phone Roxanna Hannah MD Primary Care Provider + Reason for Visit * Reason Onset Date Comments Results 05/30/2016 Encounter Details Date Type Department Care Team (Late st Contact Info) Description 05/30/2016 Orders Only [address] [address] Maggie Andrade LPN Social History Tobacco Use [...] Results * (ABNORMAL) VITAMIN B12 (05/29/2016) Pathologist [facility] Vitamin B-12, External 946(A) 239 - 931 [facility] Blood specimen (specimen) 05/29/2016 us Historical Provider CHEMISTRY & BLOOD GAS ORD ERABLES Final Result [facility] * (ABNORMAL) COMPREHENSIVE METABOLIC PANEL (CMP) (05/29/2016) GFR, Calculated, External >60 >60 [facility] Glucose, Serum, External 63(A) 70 - 100 [facility] Albumin, External 4.6 3.5 - 5.0 [facility] Total Alkaline Phosphatase, External 72 38 - 126 [facility] ALT, External 46 21 - 72 [facility] AST, External 37 17 - 59 [facility] BUN, External 24 8 - 26 [facility] Calculated Calcium, External 9.36 8.4 - 10.2 [facility] Calcium, External 9.6 8.4 - 10.2 [facility] Chloride, External 101 98 - 107 [facility] CO2, External 32(A) 22 - 30 [facility] Creatinine, External 0.93 0.66 - 1.25 [facility] Fasting?, External ? [facility] Potassium, External 5.5(A) 3.6 - 5.0 [facility] Sodium, External 147(A) 137 - 145 [facility] Total Protein, External 7.5 6.3 - 8.2 [facility] Bilirubin, Total, External 0.6 0.2 - 1.3 [facility] Blood specimen (specimen) 05/29/2016 us Historical Provider CHEMISTRY & BLOOD GAS ORD ERABLES Final Result [facility] documented in this encounter Visit Diagnoses Not on filedocumented in this encounter Care Teams Chair Inspector Relationship Specialty Start Date End Date Roxanna Hannah MD [address] [place] [phone] PCP - General 03/28/09 05/31/20 documented as of this encounter
--- OUTSIDE RECORDS SUMMARY | 2025-01-06 15:37 | XMS_ITS | Encounter Summary ---
Author Organization [facility] Address [address] [place] [address] Care Team Providers Care Contract Sheltered Workshop Supervisor Name Role Phone Roxanna Hannah MD Primary Care Provider + Reason for Visit * Reason Comments Other Encounter Details Date Type Department Care Team (Late st Contact Info) Description 10/14/2014 Refill [facility] Medicine [address] [address] Roxanna Hannah MD [address] [place] [address] [phone] Other Social History Tobacco Use Types Packs/Day [...] called into [facility]. Does he know if [facility] mail service have his Depakote on the way or does he need an Rx sent to them as well. * Telephone Encounter - Michaela Moyer RN - 10/14/2014 0847 EST [facility] 10/27/13 Per that office visit note, pt [...] documented as of this encounter Care Teams Contract Sheltered Workshop Supervisor Relationship Specialty Start Date End Date Roxanna Hannah MD [address] [place] [phone] PCP - General 03/28/09 05/31/20 documented as of this encounter
--- OUTSIDE RECORDS SUMMARY | 2025-01-06 15:37 | XMS_ITS | Encounter Summary ---
Author Organization [facility] Address [address] [place] [address] Care Team Providers Care Firer Kiln Name Role Phone Roxanna Hannah MD Primary Care Provider + Reason for Referral * Radiology Services (Routine) - Closed Specialty Diagnoses / Procedures Referred By Nela bravo Referred To Contact Diagnoses Chest wall pain Recurrent pneumonia Procedures CT CHEST Roxanna Hannah MD Phone: tel: fax: Referral ID Status Reason Start Date Expiration Date Visits Re quested Visits Authorized [id number] Closed 03/05/2017 1 1 Reason for Visit * Reason Comments MEDICATION CHECK Ear Problem would like ears [facility] Encounter Details Date Type Department Care Team (Latest Contact Info) Description 03/05/2017 11:15 EDT Office Visit [facility] Family Medicine [address] [address] Roxanna Hannah MD [address] [place] [phone] Benign essential HTN (Primary Dx); Need for [...] There is no history of kidney disease, CAD/MO or a thyroid problem. There is no [...] and 01/30 RLL CXR were done at [facility] (scanned) Never had much cough or SOB [...] fail to improve, for ROV. * Olinda Taylor LPN - 03/05/2017 1115 EDT Patient Education [...] Rfx PCR Negative Negative 03/06/2017 10:54 EDT [facility] Comment:Reference Range: Neg ative Blood specimen (specimen) BLOOD SPECIMEN / Unknown 03/05/2017 12:20 EDT 03/05/2017 18:54 EDT Roxanna Hannah MD CHEMISTRY & BLOOD GAS OR DERABLES Final Result Performing Organization Address [facility] Co de Phone Number [facility] [address] [place] [address] * HIV 1/2 ANTIBODY (03/05/2017 12:20 EDT) HIV 1/2 Antibody Negative 03/06/20 17 12:07 EDT [facility] Comment: If acute HIV-1 infection is suspected in a high risk patient, submit plasma specimen for HIV-1 RNA quantification test. Reference Range: ??Negative Assayed utilizing [employer] chemiluminescent technology. Blood specimen (specimen) BLOOD SPECIMEN / Unknown 03/05/2017 12:20 EDT 03/05/2017 18:54 EDT Roxanna Hannah MD IMMUNOLOGY AND SEROLOGY ORDERABLES Final Result Performing Organization Address City/[facility]/ZIP Co de Phone Number [facility] [address] [place] [address] * VALPROIC ACID LEVEL (03/05/2017 12:20 EDT) Valproic Acid 89.1 50.0 - 100.0 ug/ml 03/05/2017 20:10 EDT [facility] Blood specimen (specimen) BLOOD SPECIMEN / Unknown 03/05/2017 12:20 EDT 03/05/2017 18:54 EDT Roxanna Hannah MD CHEMISTRY & BLOOD GAS OR DERABLES Final Result Performing Organization Address [facility] Co de Phone Number [facility] [address] [place] [address] * HEMOGLOBIN A1C (03/05/2017 12:20 EDT) Pathologist [facility] Hemoglobin A1C 6.0 % 03/06/2017 9:46 EDT [facility] Comment: Reference Range: <5.7% Normal 5.7-6.4% Increased risk for diabetes =>6.5% Diagnostic for diabetes (if confirmed) The A1c goal for non adults in general is <7%. The A1c goal for selected patients may be significantly lower than 7% if this can be achieved without significant hypoglycemia or other adverse effects of treatment. Est Avg Glucose 126 mg/dl 7 9:46 EDT [facility] Comment: eAG represents the A1c result expressed as average glucose in mg/dl. Blood specimen (specimen) BLOOD SPECIMEN / Unknown 03/05/2017 12:20 EDT 03/05/2017 18:54 EDT Roxanna Hannah MD CHEMISTRY & BLOOD GAS OR DERABLES Final Result Performing Organization Address [facility] Co de Phone Number [facility] [address] [place] [address] * LIPID PROFILE (INCLUDES CHOLESTEROL, TRIGLYCERIDES, HDL, LDL) (03/05/2017 12:20 EDT) Cholesterol 137 mg/dl 03/05/2017 19:29 EDT [facility] Comment: Desirable:<200 Borderline High:200-239 High:>et=097 Triglycerides 104 mg/dl 03/05/2017 19:29 [facility] Comment: Normal:<150 Borderline High:150-199 High:200-499 Very High:>tp=744 HDL 39 mg/dl 03/05/2017 19:29 [facility] Comment: Low:<40 Normal:40-60 Desirable: >60 LDL, Calculated 77 mg/dl 7 19:29 [facility] Comment: Optimal:<100 Near Optimal:100-129 Borderline High:130-159 High:160-189 Very High:>ar=929 Chol/HDL Ratio 3.5 03/05/2017 19:29 [facility] Fasting? Unknown 03/05/2017 18:55 [facility] Non HDL Cholesterol 98 mg/dl 03/05/2017 19:29 [facility] Comment: Desirable:<130 Borderline:130-159 High: 160-189 Very High: >bd=051 Blood specimen (specimen) BLOOD SPECIMEN / Unknown 03/05/2017 12:20 EDT 03/05/2017 18:54 EDT us Roxanna Hannah MD CHEMISTRY & BLOOD GAS OR DERABLES Final Result [facility] [address] [place] [address] * (ABNORMAL) BASIC METABOLIC PANEL (03/05/2017 12:20 EDT) Sodium 148(H) 136 - 145 mEq/L 03/05/2017 19:29 [facility] Potassium 4.6 3.5 - 5.0 mEq/L 03/05/2017 19:29 [facility] Chloride 105 96 - 110 mEq/L 03/05/2017 19:29 [facility] CO2 30 22 - 32 mEq/L 03/05/2017 19:29 [facility] BUN 25 10 - 26 mg/dl 03/05/2017 19:29 [facility] Creatinine 1.04 0.66 - 1.25 mg/dl 03/05/2017 19:29 EDT [facility] GFR, Calculated 78 >60 ml/min/1.7 3m2 03/05/2017 19:29 EDT [facility] Comment: eGFR calculated using CKD-EPI equation for non Americans. Multiply eGFR by 1.16 for Americans. Calcium 10.0 8.5 - 10.5 mg/dl 03/05/2017 19:29 EDT [facility] Calculated Calcium 9.4 8.5 - 10.5 mg/dl 03/05/2017 19:29 EDT [facility] Glucose, Serum 83 70 - 100 mg/dl 03/05/2017 19:29 EDT [facility] Fasting? Unknown 03/05/2017 18:55 EDT [facility] Blood specimen (specimen) BLOOD SPECIMEN / Unknown 03/05/2017 12:20 EDT 03/05/2017 18:54 EDT Roxanna Hannah MD CHEMISTRY & BLOOD GAS OR DERABLES Final Result [facility] [address] [place] [address] documented in this encounter Visit Diagnoses Diagnosis [...] Start Date End Da te GLUC/ROSIBEL-MSM#1/VIT C/ZAYNAB/BOR (LSCUPXBAFVB-TLOBX-MGM COMPLEX ORAL) Take 1 Tab by mouth [...] 03/05/2017 documented in this encounter Care Teams Firer Kiln Relationship Specialty Start Date End Date Roxanna Hannah MD [address] [place] [phone] PCP - General 03/28/09 05/31/20 documented as of this encounter
--- OUTSIDE RECORDS SUMMARY | 2025-01-06 15:37 | XMS_ITS | Encounter Summary ---
Author Organization [facility] Address [address] [place] [address] Care Team Providers Care Hoisting Engineer Name Role Phone Roxanna Hannah MD Primary Care Provider + Reason for Visit * Reason Onset Date Comments CT Scan 04/10/2017 Encounter Details Date Type Department Care Team (Late st Contact Info) Description 04/10/[address] [id number] Roxanna Hannah MD [address] [place] [address] [phone] CT Scan Social History Tobacco Use Types [...] we may transfer him to Pre-Reg at [phone] to give them his insurance info. I [...] on filedocumented in this encounter Care Teams Hoisting Engineer Relationship Specialty Start Date End Date Roxanna Hannah MD [address] [place] [phone] PCP - General 03/28/09 05/31/20 documented as of this encounter
--- OUTSIDE RECORDS SUMMARY | 2025-01-06 15:37 | XMS_ITS | Encounter Summary ---
Author Organization [facility] Address [address] [place] [address] Care Team Providers Care Senior Engineering Specialist Name Role Phone Roxanna Hannah MD Primary Care Provider + Reason for Visit * Reason Comments Other Encounter Details Date Type Department Care Team (Late st Contact Info) Description 03/10/2015 [facility] Family Medicine [address] [address] Roxanna Hannah MD [address] [place] [address] [phone] Other Social History Tobacco Use Types Packs/Day [...] Telephone Encounter - Jad Reid - 03/16/2015 7704 EDT Images from the original note were not included. Isaura Ray [facility] Practice Rn Patient has not returned multiple calls * Telephone Encounter - Jasmin Lino RN - 03/10/2015 0914 EDT Zocor script was sent to [facility] on 12/27/14 for a year, [...] on filedocumented in this encounter Care Teams Senior Engineering Specialist Relationship Specialty Start Date End Date Roxanna Hannah MD [address] [place] [address] [phone] PCP - General 03/28/09 05/31/20 documented as of this encounter
--- OUTSIDE RECORDS SUMMARY | 2025-01-06 15:37 | XMS_ITS | Encounter Summary ---
Author Organization [facility] Address [address] [place] [address] Care Team Providers Care Malt House Supervisor Name Role Phone Roxanna Hannah MD Primary Care Provider + Reason for Visit * Reason Comments Other Encounter Details Date Type Department Care Team (Late st Contact Info) Description 07/11/2015 [facility] Medicine [address] [address] Roxanna Hannah MD [address] [place] [address] [phone] Other Social History Tobacco Use Types Packs/Day [...] on filedocumented in this encounter Care Teams Malt House Supervisor Relationship Specialty Start Date End Date Roxanna Hannah MD [address] [place] [phone] PCP - General 03/28/09 05/31/20 documented as of this encounter
--- OUTSIDE RECORDS SUMMARY | 2025-01-06 15:37 | XMS_ITS | Encounter Summary ---
Author Organization [facility] Address [address] [place] [address] Care Team Providers Care Skid Wrapper Name Role Phone Roxanna Hannah MD Primary Care Provider + Encounter Details Date Type Department Care Team (Late st Contact Info) Description 04/03/2016 Phlebotomy Only [facility] [address] [place] [address] Garbage Truck Driver, Outpatient Other hyperlipidemia; Seizure disorder (CMS-HCC); Diabetes [...] Routine 04/03/2016 1 3:08 EDT Seizure disorder ([facility]) LIPID PROFILE (INCLUDES CHOLESTEROL, TRIGLYCERIDES, HDL, LDL) Routine 04/03/2016 13:08 EDT Other hyperlipidemia COMPREHENSIVE METABOLIC PANEL (CMP) Routine 04/03/2016 13:08 EDT Other hyperlipidemia Seizure disorder ([facility]) documented in this encounter Results * VALPROIC ACID LEVEL (04/03/2016 13:08 EDT) Valproic Acid 74.1 50.0 - 100.0 ug/ml 04/03/2016 21:33 EDT [facility] Blood specimen (specimen) BLOOD SPECIMEN / Unknown 04/03/2016 13:08 EDT 04/03/2016 19:39 EDT Roxanna Hannah MD CHEMISTRY & BLOOD GAS OR DERABLES Final Result [facility] [address] [place] [address] * HEMOGLOBIN A1C (04/03/2016 13:08 EDT) Hemoglobin A1C 5.9 % 04/04/2016 10:34 [facility] Comment: Reference Range: <5.7% Normal 5.7-6.4% Increased risk for diabetes =>6.5% Diagnostic for diabetes (if confirmed) The A1c goal for non adults in general is <7%. The A1c goal for selected patients may be significantly lower than 7% if this can be achieved without significant hypoglycemia or other adverse effects of treatment. Est Avg Glucose 123 mg/dl 6 10:34 [facility] Comment: eAG represents the A1c result expressed as average glucose in mg/dl. Blood specimen (specimen) BLOOD SPECIMEN / Unknown 04/03/2016 13:08 EDT 04/03/2016 19:39 EDT us Roxanna Hannah MD CHEMISTRY & BLOOD GAS OR DERABLES Final Result [facility] [address] [place] [id number] * LIPID PROFILE (INCLUDES CHOLESTEROL, TRIGLYCERIDES, HDL, LDL) (04/03/2016 13:08 EDT) Cholesterol 173 mg/dl 04/03/2016 20:46 [facility] Comment: Desirable:<200 Borderline High:200-239 High:>qg=236 Triglycerides 208 mg/dl 04/03/2016 20:46 [facility] Comment: Normal:<150 Borderline High:150-199 High:200-499 Very High:>cm=326 HDL 35 mg/dl 04/03/2016 20:46 [facility] Comment: Low:<40 Normal:40-60 Desirable: >60 LDL, Calculated 96 mg/dl 6 20:46 [facility] Comment: Optimal:<100 Near Optimal:100-129 Borderline High:130-159 High:160-189 Very High:>ny=858 Chol/HDL Ratio 4.9 04/03/2016 20:46 [facility] Fasting? No 04/03/2016 13:10 [facility] Non HDL Cholesterol 138 mg/dl 04/03/2016 20:46 [facility] Comment: Desirable:<130 Borderline:130-159 High: 160-189 Very High: >no=601 Blood specimen (specimen) BLOOD SPECIMEN / Unknown 04/03/2016 13:08 EDT 04/03/2016 19:39 EDT us Roxanna Hannah MD CHEMISTRY & BLOOD GAS OR DERABLES Final Result [facility] [address] [place] [address] * (ABNORMAL) COMPREHENSIVE METABOLIC PANEL (CMP) (04/03/2016 13:08 EDT) Potassium 4.9 3.5 - 5.0 mEq/L 04/03/2016 20:46 [facility] Sodium 143 136 - 145 mEq/L 04/03/2016 20:46 [facility] Chloride 100 96 - 110 mEq/L 04/03/2016 20:46 [facility] CO2 29 24 - 32 mEq/L 04/03/2016 20:46 [facility] Total Alkaline Phosphatase 58 38 - 126 U/L 04/03/2016 20:46 [facility] Bilirubin, Total 0.6 <1.4 mg/dl 04/03/20 16 20:46 [facility] AST 26 15 - 46 U/L 04/03/2016 20:46 [facility] ALT 35 21 - 72 U/L 04/03/2016 20:46 [facility] Albumin 4.4 3.4 - 4.9 g/dl 04/03/2016 20:46 [facility] Total Protein 7.2 6.3 - 8.2 g/dl 04/03/2016 20:46 [facility] Creatinine 0.85 0.66 - 1.25 mg/dl 04/03/2016 20:46 [facility] GFR, Calculated 95 >60 ml/min/1.7 3m2 04/03/2016 20:46 [facility] Comment: eGFR calculated using CKD-EPI equation for non Americans. Multiply eGFR by 1.16 for Americans. BUN 19 10 - 26 mg/dl 04/03/2016 20:46 EDT [facility] Calcium 9.2 8.5 - 10.5 mg/dl 04/03/2016 20:46 T [facility] Calculated Calcium 9.2 8.5 - 10.5 mg/dl 04/03/2016 20:46 T [facility] Glucose, Serum 56(L) 70 - 100 mg/dl 04/03/2016 20:46 T [facility] Fasting? No 04/03/2016 13:10 [facility] Blood specimen (specimen) BLOOD SPECIMEN / Unknown 04/03/2016 13:08 EDT 04/03/2016 19:39 EDT us Roxanna Hannah MD CHEMISTRY & BLOOD GAS OR DERABLES Final Result [facility] [address] [place] [address] documented in this encounter Visit Diagnoses Diagnosis Other hyperlipidemia Seizure disorder ([facility]) Unspecified epilepsy without mention of intractable epilepsy Diabetes mellitus screening Screening for diabetes mellitus documented in this encounter Care Teams Skid Wrapper Relationship Specialty Start Date End Date Roxanna Hannah MD [address] [place] [phone] PCP - General 03/28/09 05/31/20 documented as of this encounter
--- OUTSIDE RECORDS SUMMARY | 2025-01-06 15:37 | XMS_ITS | Encounter Summary ---
Author Organization [facility] Address [address] [place] [address] Care Team Providers Care Director Retail Brand Development Name Role Phone Roxanna Hannah MD Primary Care Provider + Reason for Visit * Reason Onset Date Comments Rash 07/02/2016 Encounter Details Date Type Department Care Team (Late st Contact Info) Description 07/02/[address] [phone] Roxanna Hannah MD [address] [place] [address] [phone] Rash Social History Tobacco Use Types Packs/Day [...] ordered another week of both medications at [facility]. He needs to stay out of the [...] to advise (uses the [facility] in [place]). * Telephone Encounter - Iwona Troncoso - [...] Blood Pressure Hypertension 130/84(2019 8:53 EST) No Roxanan Hannah MD Being Active General Obesity Yes [...] as of this encounter Care Teams Director Retail Brand Development Relationship Specialty Start Date End Date Roxanna Hannah MD [address] [place] [phone] PCP - General 03/28/09 05/31/20 documented as of this encounter
--- OUTSIDE RECORDS SUMMARY | 2025-01-06 15:37 | XMS_ITS | Encounter Summary ---
Author Organization [facility] Address [address] [place] [address] Care Team Providers Care Laminate Floor Installer Name Role Phone Roxanna Hannah MD Primary Care Provider + Reason for Visit * Reason Onset Date Comments Labs Only 03/26/2016 Encounter Details Date Type Department Care Team (Late st Contact Info) Description 03/26/[address] [phone] Roxanna Hannah MD [address] [place] [address] [phone] Labs Only Social History Tobacco Use Types [...] 50.0 - 100.0 ug/ml 04/03/2016 21:33 EDT [facility] Blood specimen (specimen) BLOOD SPECIMEN / Unknown 04/03/2016 13:08 EDT 04/03/2016 19:39 EDT us Roxanna Hannah MD CHEMISTRY & BLOOD GAS OR DERABLES Final Result Performing Organization Address [facility] Co de Phone Number [facility] [address] [place] [address] * HEMOGLOBIN A1C (04/03/2016 13:08 EDT) Hemoglobin A1C 5.9 % 04/04/2016 10:34 EDT [facility] Comment: Reference Range: <5.7% Normal 5.7-6.4% Increased risk for diabetes =>6.5% Diagnostic for diabetes (if confirmed) The A1c goal for non adults in general is <7%. The A1c goal for selected patients may be significantly lower than 7% if this can be achieved without significant hypoglycemia or other adverse effects of treatment. Est Avg Glucose 123 mg/dl 6 10:34 EDT [facility] Comment: eAG represents the A1c result expressed as average glucose in mg/dl. Blood specimen (specimen) BLOOD SPECIMEN / Unknown 04/03/2016 13:08 EDT 04/03/2016 19:39 EDT us Roxanna Hannah MD CHEMISTRY & BLOOD GAS OR DERABLES Final Result Performing Organization Address [facility] Co de Phone Number [facility] [address] [place] [address] * LIPID PROFILE (INCLUDES CHOLESTEROL, TRIGLYCERIDES, HDL, LDL) (04/03/2016 13:08 EDT) Cholesterol 173 mg/dl 04/03/2016 20:46 T [facility] Comment: Desirable:<200 Borderline High:200-239 High:>fq=123 Triglycerides 208 mg/dl 04/03/2016 20:46 T [facility] Comment: Normal:<150 Borderline High:150-199 High:200-499 Very High:>la=835 HDL 35 mg/dl 04/03/2016 20:46 T [facility] Comment: Low:<40 Normal:40-60 Desirable: >60 LDL, Calculated 96 mg/dl 6 20:46 T [facility] Comment: Optimal:<100 Near Optimal:100-129 Borderline High:130-159 High:160-189 Very High:>hj=047 Chol/HDL Ratio 4.9 04/03/2016 20:46 [facility] Fasting? No 04/03/2016 13:10 [facility] Non HDL Cholesterol 138 mg/dl 04/03/2016 20:46 [facility] Comment: Desirable:<130 Borderline:130-159 High: 160-189 Very High: >ra=406 Blood specimen (specimen) BLOOD SPECIMEN / Unknown 04/03/2016 13:08 EDT 04/03/2016 19:39 EDT us Roxanna Hannah MD CHEMISTRY & BLOOD GAS OR DERABLES Final Result [facility] [address] [place] [address] * (ABNORMAL) COMPREHENSIVE METABOLIC PANEL (CMP) (04/03/2016 13:08 EDT) Potassium 4.9 3.5 - 5.0 mEq/L 04/03/2016 20:46 [facility] Sodium 143 136 - 145 mEq/L 04/03/2016 20:46 [facility] Chloride 100 96 - 110 mEq/L 04/03/2016 20:46 [facility] CO2 29 24 - 32 mEq/L 04/03/2016 20:46 [facility] Total Alkaline Phosphatase 58 38 - 126 U/L 04/03/2016 20:46 [facility] Bilirubin, Total 0.6 <1.4 mg/dl 04/03/20 16 20:46 [facility] AST 26 15 - 46 U/L 04/03/2016 20:46 [facility] ALT 35 21 - 72 U/L 04/03/2016 20:46 [facility] Albumin 4.4 3.4 - 4.9 g/dl 04/03/2016 20:46 [facility] Total Protein 7.2 6.3 - 8.2 g/dl 04/03/2016 20:46 [facility] Creatinine 0.85 0.66 - 1.25 mg/dl 04/03/2016 20:46 [facility] GFR, Calculated 95 >60 ml/min/1.7 3m2 04/03/2016 20:46 [facility] Comment: eGFR calculated using CKD-EPI equation for non Americans. Multiply eGFR by 1.16 for Americans. BUN 19 10 - 26 mg/dl 04/03/2016 20:46 T [facility] Calcium 9.2 8.5 - 10.5 mg/dl 04/03/2016 20:46 [facility] Calculated Calcium 9.2 8.5 - 10.5 mg/dl 04/03/2016 20:46 [facility] Glucose, Serum 56(L) 70 - 100 mg/dl 04/03/2016 20:46 [facility] Fasting? No 04/03/2016 13:10 [facility] Blood specimen (specimen) BLOOD SPECIMEN / Unknown 04/03/2016 13:08 EDT 04/03/2016 19:39 EDT Roxanna Hannah MD CHEMISTRY & BLOOD GAS OR DERABLES Final Result [facility] [address] [place] [address] documented in this encounter Visit Diagnoses Diagnosis Other hyperlipidemia- Primary Seizure disorder (HCC-CMS) Unspecified epilepsy without mention of intractable epilepsy Diabetes mellitus screening Screening for diabetes mellitus documented in this encounter Care Teams Laminate Floor Installer Relationship Specialty Start Date End Date Roxanna Hannah MD [address] [place] [phone] PCP - General 03/28/09 05/31/20 documented as of this encounter
--- OUTSIDE RECORDS SUMMARY | 2025-01-06 15:37 | XMS_ITS | Encounter Summary ---
Author Organization [facility] Address [address] [place] [address] Care Team Providers Care Youth Advocate Name Role Phone Roxanna Hannah MD Primary Care Provider + Reason for Visit * Reason Onset Date Comments Labs Only 08/19/2014 Encounter Details Date Type Department Care Team (Late st Contact Info) Description 08/19/[address] [phone] Roxanna Hannah MD [address] [place] [address] [phone] Labs Only Social History Tobacco Use Types [...] on filedocumented in this encounter Care Teams Youth Advocate Relationship Specialty Start Date End Date Roxanna Hannah MD [address] [place] [address] [phone] PCP - General 03/28/09 05/31/20 documented as of this encounter
--- OUTSIDE RECORDS SUMMARY | 2025-01-06 15:37 | XMS_ITS | Encounter Summary ---
Author Organization [facility] Address [address] [place] [address] Care Team Providers Care Office Rep Name Role Phone Roxanna Hannah MD Primary Care Provider + Encounter Details Date Type Department Care Team (Late st Contact Info) Description 12/22/2014 Orders Only [facility] Family Medicine - [address] [phone] Roxanna Hannah MD [address] [place] [address] [phone] Screening (Primary Dx); IGT (impaired glucose tolerance) [...] test documented in this encounter Care Teams Office Rep Relationship Specialty Start Date End Date Roxanna Hannah MD [address] [place] [phone] PCP - General 03/28/09 05/31/20 documented as of this encounter
--- OUTSIDE RECORDS SUMMARY | 2025-01-06 15:37 | XMS_ITS | Encounter Summary ---
Author Organization [facility] Address [address] [place] [address] Care Team Providers Care Machine Iii Coremaker Name Role Phone Roxanna Hannah MD Primary Care Provider + Reason for Visit * Reason Comments Labs Only Encounter Details Date Type Department Care Team (Late st Contact Info) Description 08/13/2014 15:45 EDT Nurse Only [address] [address] Unknown, Provider, Nurse, [facility] , RN Seizure disorder ([facility]) (Primary Dx) Social History Tobacco Use Types [...] DERABLES Final Result [facility] [address] [place] [address] documented in this encounter Visit Diagnoses Diagnosis Seizure disorder ([facility])- Primary Unspecified epilepsy without mention of intractable epilepsy documented in this encounter Care Teams Machine Iii Coremaker Relationship Specialty Start Date End Date Roxanna Hannah MD [address] [place] [phone] PCP - General 03/28/09 05/31/20 documented as of this encounter
--- OUTSIDE RECORDS SUMMARY | 2025-01-06 15:37 | XMS_ITS | Encounter Summary ---
Author Organization [facility] Address [address] [place] [address] Care Team Providers Care Geospatial Technologist Name Role Phone Roxanna Hannah MD Primary Care Provider + Reason for Visit * Reason Onset Date Comments Medications Refill 09/06/2015 Encounter Details Date Type Department Care Team (Late st Contact Info) Description 09/06/2015 Refill [facility] Family Medicine [address] [address] Roxanna Hannah MD [address] [place] [address] [phone] Medications Refill Social History Tobacco Use Types [...] Encounter - Michaela Moyer RN - 09/06/2015 5047 EDT Prescription for depakote was sent and received by [facility] on 09/05/15. * Telephone Encounter - Heydi Adams - 09/06/2015 9808 EDT Medication(s) Requested: Depakote Pharmacy: [facility] mail order Last Refill Date: 09/05/15 #270 [...] on filedocumented in this encounter Care Teams Geospatial Technologist Relationship Specialty Start Date End Date Roxanna Hannah MD [address] [place] [phone] PCP - General 03/28/09 05/31/20 documented as of this encounter
--- OUTSIDE RECORDS SUMMARY | 2025-01-06 15:37 | XMS_ITS | Encounter Summary ---
Author Organization [facility] Address [address] [place] [address] Care Team Providers Care Auto Parker Name Role Phone Roxanna Hannah MD Primary Care Provider + Reason for Visit * Reason Onset Date Comments Shortness of Breath 05/22/2016 Encounter Details Date Type Department Care Team (Late st Contact Info) Description 05/22/[address] [address] Maggie Andrade LPN Shortness of Breath Social [...] Encounter - Maggie Andrade LPN - 05/22/2016 1746 EDT Pt. Was seen at [facility] on 05/20/16 for SOB. Pt. Was [...] filedocumented in this encounter Care Teams Auto Parker Relationship Specialty Start Date End Date Roxanna Hannah MD [address] [place] [phone] PCP - General 03/28/09 05/31/20 documented as of this encounter
--- OUTSIDE RECORDS SUMMARY | 2025-01-06 15:37 | XMS_ITS | Encounter Summary ---
Author Organization [facility] Address [address] [place] [address] Care Team Providers Care Spring Manufacturing Set Up Technician Name Role Phone Roxanna Hannah MD Primary Care Provider + Reason for Visit * Reason Comments Other Encounter Details Date Type Department Care Team (Late st Contact Info) Description 09/04/2015 Refill [facility] Medicine [address] [address] Roxanna Hannah MD [address] [place] [address] [phone] Other Social History Tobacco Use Types Packs/Day [...] documented as of this encounter Care Teams Spring Manufacturing Set Up Technician Relationship Specialty Start Date End Date Roxanna Hannah MD [address] [place] [phone] PCP - General 03/28/09 05/31/20 documented as of this encounter
--- OUTSIDE RECORDS SUMMARY | 2025-01-06 15:37 | XMS_ITS | Encounter Summary ---
Author Organization [facility] Address [address] [place] [address] Care Team Providers Care Retail Sales Manager Name Role Phone Roxanna Hannah MD Primary Care Provider + Reason for Visit * Reason Onset Date Comments URI 01/30/2017 Encounter Details Date Type Department Care Team (Late st Contact Info) Description 01/30/[address] [address] Maggie Andrade LPN URI Social History Tobacco [...] was called as he was seen at [facility] on 01/28 for URI s/s. Dx'd with [...] on filedocumented in this encounter Care Teams Retail Sales Manager Relationship Specialty Start Date End Date Roxanna Hannah MD [address] [place] [phone] PCP - General 03/28/09 05/31/20 documented as of this encounter
--- OUTSIDE RECORDS SUMMARY | 2025-01-06 15:37 | XMS_ITS | Encounter Summary ---
Author Organization [facility] Address [address] [place] [address] Care Team Providers Care Allergist/Immunologist Name Role Phone Roxanna Hannah MD Primary Care Provider + Reason for Visit * Reason Onset Date Comments Results 06/29/2016 Encounter Details Date Type Department Care Team (Late st Contact Info) Description 06/29/[address] [phone] Latesha Ochoa MD [facility] [place] [phone] Results Social History Tobacco Use [...] signs and symptoms to watch for. Rev'd furniture sales consultant and utilization of ED services if needed [...] on filedocumented in this encounter Care Teams Allergist/Immunologist Relationship Specialty Start Date End Date Roxanna Hannah MD [address] [place] [phone] PCP - General 03/28/09 05/31/20 documented as of this encounter
--- OUTSIDE RECORDS SUMMARY | 2025-01-06 15:37 | XMS_ITS | Encounter Summary ---
Author Organization [facility] Address [address] [place] [address] Care Team Providers Care Scientific Laboratory Supervisor Name Role Phone Roxanna Hannah MD [...] Expiration Date Visits Re quested Visits Authorized [id number] Closed 10/24/2016 1 1 Reason for Visit * Reason Comments Follow-up urgent care follow u p/ pneumonia. pt also states that he has a spot on left lung that has grown and he would like to discuss results Encounter Details Date Type Department Care Team (Late st Contact Info) Description 10/24/2016 12:30 EST Office Visit [facility] - [address] [address] Roxanna Hannah MD [address] [place] [phone] Pneumonia of right upper lobe due to [...] results HPI Here to f/u from recent [facility] UC visit Was having cough [...] daily. 16 g 2 ??? GLUC/ROSIBEL-MSM#1/VIT C/ZAYNAB/BOR (MLFOAZSRAWV-QGYMX-GDS COMPLEX ORAL) Take 1 Tab by mouth [...] PA AND LATERAL Flu vaccine need - [id number] - Influenza Vaccine =>3YO Quad Preservative Free IM F/u prn documented in this encounter Plan of Treatment Scheduled Orders Name Type Priority Associated Diagnoses Orde r Schedule CHEST PA AND LATERAL Imaging Routine Pneumonia of right upper lobe due to infectious organism ([facility]) Ordered: 10/24/2016 documented as of this encounter [...] 10/24/2016 documented in this encounter Care Teams Scientific Laboratory Supervisor Relationship Specialty Start Date End Date Roxanna Hannah MD [address] [place] [phone] PCP - General 03/28/09 05/31/20 documented as of this encounter
--- OUTSIDE RECORDS SUMMARY | 2025-01-06 15:38 | XMS_ITS | Encounter Summary ---
Author Organization [facility] Address [address] [place] [address] Care Team Providers Care Fire Chief'S Aide Name Role Phone Roxanna Hannah MD Primary Care Provider + Reason for Referral * Cardiology (Routine/Next Available) - Closed Specialty Diagnoses / Procedures Referred By Nela bravo Referred To Contact Diagnoses Pre-op exam Procedures EKG 12-LEAD Ariel Houston MD Phone: tel: fax: Referral ID Status Reason Start Date Expiration Date Visits Re quested Visits Authorized [id number] Closed 03/04/2014 1 1 Reason for Visit * Reason Comments Pre-op Exam Patient is here toda y for a pre-op evaluation. Surgery 03/10/[address] Brown Hydrocele Encounter Details Date Type Department Care Team (Late st Contact Info) Description 03/04/2014 14:15 EDT Office Visit [address] [address] Unknown, Provider, Jackie Jenkins MD Huang, Kuang-Ning, MD [address] [place] [phone] Hydrocele (Primary Dx); Pre-op exam; Seizure disorder [...] 20:10 * Ariel Houston MD - 03/04/2014 3577 EDT Preoperative H&P Patient ID: Mario Curry [...] 03/04/2014 16:5 3 EDT us Scan 2 Breakdown Mill Operator PROCEDURE/MINOR SURGICAL OR DERABLES Final Result documented in this encounter Visit Diagnoses Diagnosis Hydrocele- Primary Hydrocele, unspecified Pre-op exam Preoperative examination, unspecified Seizure disorder (HCC-CMS) Unspecified epilepsy without mention of intractable epilepsy Essential hypertension Unspecified essential hypertension documented in this encounter Care Teams Fire Chief'S Aide Relationship Specialty Start Date End Date Roxanna Hannah MD [address] [place] [phone] PCP - General 03/28/09 05/31/20 documented as of this encounter
--- OUTSIDE RECORDS SUMMARY | 2025-01-06 15:38 | XMS_ITS | Encounter Summary ---
Author Organization [facility] Address [address] [place] [address] Care Team Providers Care Operator Maintainer Name Role Phone Roxanna Hannah MD Primary Care Provider + Reason for Visit * Reason Comments Shoulder Pain Left Medication Management Encounter Details Date Type Department Care Team (Late st Contact Info) Description 09/03/2012 10:00 EDT Office Visit [address] [phone] Roxanna Hannah MD [address] [place] [address] [phone] Need for influenza vaccination (Primary Dx); Hyperlipidemia; IGT (impaired glucose tolerance); Essential hypertension; Shoulder pain; Seizure disorder ([facility]) Social History Tobacco Use Types Packs/Day Years [...] There is no history of kidney disease, CAD/CO, heart failure or a thyroid problem. There [...] 1 Tab by mouth daily. ??? GLUCOSAMINE [id number] ORAL Take 1 Tab by mouth daily. [...] as appt not until later in SEP ([facility]TH[facility] appt would be even longer wait [...] VALPROIC ACID LEVEL (09/03/2012 10:23 EDT) Pathologist [facility] Valproic Acid 83.7 50.0 - 100.0 ug/ml [facility] Blood specimen (specimen) 09/03/2012 10:23 EDT 09/03/2012 18:20 EDT Roxanna Hannah MD CHEMISTRY & BLOOD GAS OR DERABLES Final Result [facility] [address] [place] [address] * LIPID PROFILE (INCLUDES CHOLESTEROL, TRIGLYCERIDES, HDL, LDL) (09/03/2012 10:23 EDT) Cholesterol 113 mg/dl [facility] Comment: Desirable:<200 Borderline High:200-239 High:>ht=299 Triglycerides 64 mg/dl [facility] Comment: Normal:<150 Borderline High:150-199 High:200-499 Very High:>mr=752 HDL 31 mg/dl [facility] Comment: Low:<40 Normal:40-60 Desirable: >60 LDL, Calculated 69 mg/dl [facility] Comment: Optimal:<100 Near Optimal:100-129 Borderline High:130-159 High:160-189 Very High:>bt=839 Chol/HDL Ratio 3.6 [facility] Fasting? Yes [facility] Blood specimen (specimen) 09/03/2012 10:23 EDT 09/03/2012 18:20 EDT Roxanna Hannah MD CHEMISTRY & BLOOD GAS OR DERABLES Final Result Performing Organization Address [facility] de Phone Number [facility] [address] [place] [address] * HEMOGLOBIN A1C (09/03/2012 10:23 EDT) Hemoglobin [...] OR DERABLES Final Result Performing Organization Address [facility] de Phone Number [facility] [address] [place] [address] * (ABNORMAL) COMPREHENSIVE METABOLIC PANEL (CMP) (09/03/2012 [...] >60 >60 ml/min/1.7 3m2 [facility] BUN 17 10 - 26 mg/dl [facility] Calcium 9.1 8.5 - 10.5 mg/dl [facility] Calculated Calcium 9.6 8.5 - 10.5 mg/dl [facility] Glucose, Serum 96 70 - 100 mg/dl [facility] Fasting? YES [facility] Blood specimen (specimen) 09/03/2012 10:23 EDT 09/03/2012 18:20 EDT Roxanna Hannah MD CHEMISTRY & BLOOD GAS OR DERABLES Final Result Performing Organization Address City/State/[facility] Co de Phone Number [facility] [address] [place] [address] documented in this encounter Visit Diagnoses Diagnosis [...] 09/03/2012 documented in this encounter Care Teams Operator Maintainer Relationship Specialty Start Date End Date Roxanna Hannah MD [address] [place] [phone] PCP - General 03/28/09 05/31/20 documented as of this encounter
--- OUTSIDE RECORDS SUMMARY | 2025-01-06 15:38 | XMS_ITS | Encounter Summary ---
Author Organization [facility] Address [address] [place] [address] Care Team Providers Care Forepart Rasper Name Role Phone Roxanna Hannah MD Primary Care Provider + Reason for Visit * Reason Onset Date Comments Follow-up 12/08/2013 [facility], Care a nd Concern Call. Encounter Details Date Type Department Care Team (Late st Contact Info) Description 12/08/[address] [phone] Roxanna Hannah MD [address] [place] [address] [phone] Follow-up ([facility], Care and Concern Call.) Social History [...] on filedocumented in this encounter Care Teams Forepart Rasper Relationship Specialty Start Date End Date Roxanna Hannah MD [address] [place] [phone] PCP - General 03/28/09 05/31/20 documented as of this encounter
--- OUTSIDE RECORDS SUMMARY | 2025-01-06 15:38 | XMS_ITS | Encounter Summary ---
Author Organization [facility] Address [address] [place] [address] Care Team Providers Care Allocations Clerk Name Role Phone Roxanna Hannah MD Primary Care Provider + Reason for Visit * Reason Onset Date Comments Medications Refill 07/24/2012 Encounter Details Date Type Department Care Team (Late st Contact Info) Description 07/24/2012 Refill [facility] Medicine [address] [address] Roxanna Hannah MD [address] [place] [address] [phone] Medications Refill Social History Tobacco Use Types [...] [employer], would like these to go to [facility]. He forgot to ask yesterday when he [...] documented as of this encounter Care Teams Allocations Clerk Relationship Specialty Start Date End Date Roxanna Hannah MD [address] [place] [phone] PCP - General 03/28/09 05/31/20 documented as of this encounter
--- OUTSIDE RECORDS SUMMARY | 2025-01-06 15:38 | XMS_ITS | Encounter Summary ---
Author Organization [facility] Address [address] [place] [address] Care Team Providers Care Manager Customer Service Name Role Phone Roxanna Hannah MD Primary Care Provider + Encounter Details Date Type Department Care Team (Late st Contact Info) Description 10/21/2012 Results Only Imaging [facility] [phone] Pradeep Lorenzo MD [address] [place] [address] [phone] Social History Tobacco Use Types Packs/Day Years [...] filedocumented in this encounter Care Teams Manager Customer Service Relationship Specialty Start Date End Date Roxanna Hannah MD [address] [place] [address] [phone] PCP - General 03/28/09 05/31/20 documented as of this encounter
--- OUTSIDE RECORDS SUMMARY | 2025-01-06 15:38 | XMS_ITS | Encounter Summary ---
Author Organization [facility] Address [address] [place] [address] Care Team Providers Care Grades 7 And 8 Teacher Name Role Phone Roxanna Hannah MD Primary Care Provider + Reason for Visit * Reason Comments Other Encounter Details Date Type Department Care Team (Late st Contact Info) Description 08/27/2013 Refill [facility] Medicine [address] [address] Roxanna Hannah MD [address] [place] [address] [phone] Other Social History Tobacco Use Types Packs/Day [...] documented as of this encounter Care Teams Grades 7 And 8 Teacher Relationship Specialty Start Date End Date Roxanna Hannah MD [address] [place] [phone] PCP - General 03/28/09 05/31/20 documented as of this encounter
--- OUTSIDE RECORDS SUMMARY | 2025-01-06 15:38 | XMS_ITS | Encounter Summary ---
Author Organization [facility] Address [address] [place] [address] Care Team Providers Care Braille Teacher Name Role Phone Roxanna Hananh MD Primary Care Provider + Reason for Referral * Consult (Routine) - Closed Specialty Diagnoses / Procedures [facility] Referred To Contact Diagnoses Shoulder pain Arthritis of shoulder region, left Roxanna Hannah MD Phone: tel: fax: [facility] [address] [place] [address] Referral ID Status Reason Start Date Expiration Date V isits Requested Visits Authorized [id number] Closed Specialty Services Required 01/01/2012 1 1 Question Answer Reason for Request: left shoulder arthritis, pain and ROM limitations Comments 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 Salazar [facility] Reason for Visit * Reason Comments Blood Sugar Problem Here to follow up on blood sugar. Shoulder Pain Pain. Wants to discu ss having an MRI. Encounter Details Date Type Department Care Team (Late st Contact Info) Description 01/01/2012 10:00 EST Office Visit [facility] Family Medicine - [address] [address] Roxanna Hannah MD [address] [place] [phone] Impaired glucose tolerance; Shoulder pain; Arthritis of [...] 3rd finger sharp and shooting pains XRAY [facility] Fall 2010, showed mod degenerative changes and [...] traumas and dislocations ORTHO ref , prefers [facility] Consider steroid injection Might need MRI imaging [...] region documented in this encounter Care Teams Braille Teacher Relationship Specialty Start Date End Date Roxanna Hannah MD [address] [place] [address] [phone] PCP - General 03/28/09 05/31/20 documented as of this encounter
--- OUTSIDE RECORDS SUMMARY | 2025-01-06 15:38 | XMS_ITS | Encounter Summary ---
Author Organization [facility] Address [address] [place] [address] Care Team Providers Care Knowledge Engineer Name Role Phone Roxanna Hannah MD Primary Care Provider + Encounter Details Date Type Department Care Team (Late st Contact Info) Description 11/03/2012 Pre-Procedure Orders Encounter [facility] [address] [place], [place] [address] Gogo Horton, PATeodoroC [address] [facility] [address] [place] [phone] Social History Tobacco Use Types Packs/Day Years [...] on filedocumented in this encounter Care Teams Knowledge Engineer Relationship Specialty Start Date End Date Roxanna Hannah MD [address] [place] [phone] PCP - General 03/28/09 05/31/20 documented as of this encounter
--- OUTSIDE RECORDS SUMMARY | 2025-01-06 15:38 | XMS_ITS | Encounter Summary ---
Author Organization [facility] Address [address] [place] [address] Care Team Providers Care Industrial Green Systems Designer Name Role Phone Roxanna Hannah MD Primary Care Provider + Reason for Visit * Reason Comments Diarrhea started Saturday nig ht Abdominal Cramping Blood in stool Nausea Emesis Fever Fatigue Encounter Details Date Type Department Care Team (Late st Contact Info) Description 12/24/2013 10:45 EST Office Visit [address] [phone] Unknown, Provider, MD Arthur, Pradeep Michel MD [address] [place] [phone] Abdominal pain (Primary Dx); Viral enteritis [...] from the original note were not included. [facility] Patient Instructions Gastroenteritis: After Your Visit Your [...] Where can you learn more? Go to [email or web address].net/fahc Enter N142 in the search box to learn more about Gastroenteritis: After Your Visit. ?? [phone] [employer]. Care instructions adapted under license by [facility], [facility]. This care instruction is for use with your licensed healthcare professional. If you have questions about a medical condition or this instruction, always ask your healthcare professional. [employer] disclaims any warranty or liability for your use of this information. Content Version: 9.7.548333; Last Revised: February 05, 2011 documented in [...] classified documented in this encounter Care Teams Industrial Green Systems Designer Relationship Specialty Start Date End Date Roxanna Hannah MD [address] [place] [phone] PCP - General 03/28/09 05/31/20 documented as of this encounter
--- OUTSIDE RECORDS SUMMARY | 2025-01-06 15:38 | XMS_ITS | Encounter Summary ---
Author Organization [facility] Address [address] [place] [address] Care Team Providers Care Construction Secretary Name Role Phone Roxanna Hannah MD Primary Care Provider + Reason for Visit * Reason Comments Pre-op Exam Encounter Details Date Type Department Care Team (Late st Contact Info) Description 10/27/2012 15:30 EST [facility] Visit [facility] Family Medicine [address] [phone] Unknown, Provider, Melani Ashraf MD [address] [place] [phone] Rodrigo Whitlock MD [address] [place] [phone] Preop general physical exam; HTN (hypertension); Seizure [...] adopted. Social: Nonsmoker No ETOH Retired from [employer] 04/2012 Patient Active Problem List Diagnoses ??? [...] 1 Tab by mouth daily. ??? GLUCOSAMINE [id number] ORAL Take 1 Tab by mouth daily. [...] 10/27/2012 16:46 If is billing provider, the WILLOW MACHINE OPERATOR or PA must attest: I was directly supervised by Dr. Clemons who was present in the office suite and was immediately available. documented in this encounter Procedure Notes * DRUM STRAIGHTENER, SCAN 2 - 10/29/2012 1134 ESTAssociated Order(s): [...] EST Narrative 10/29/2012 11:57 EST Procedure Note DRUM STRAIGHTENER, SCAN 2 - 10/29/2012 11:34 EST us Scan 2 Communication Electronic Technician PROCEDURE/MINOR SURGICAL OR DERABLES Final Result * VALPROIC ACID LEVEL (10/27/2012 16:42 EST) Valproic Acid 89.8 50.0 - 100.0 ug/ml [facility] Blood specimen (specimen) 10/27/2012 16:42 EST 10/27/2012 18:54 EST us Melani Palumbo MD CHEMISTRY & BLOOD GAS ORD ERABLES Final Result [facility] [address] [place] [address] * BASIC METABOLIC PANEL (10/27/2012 16:42 EST) [...] ERABLES Final Result [facility] [address] [place] [address] documented in this encounter Visit Diagnoses Diagnosis Preop general physical exam Other specified pre-operative examination HTN (hypertension) Unspecified essential hypertension Seizure (HCC-CMS) Other convulsions documented in this encounter Care Teams Construction Secretary Relationship Specialty Start Date End Date Roxanna Hannah MD [address] [place] [phone] PCP - General 03/28/09 05/31/20 documented as of this encounter
--- OUTSIDE RECORDS SUMMARY | 2025-01-06 15:38 | XMS_ITS | Encounter Summary ---
Author Organization [facility] Address [address] [place] [address] Care Team Providers Care Template Cutter Name Role Phone Roxanna Hannah MD Primary Care Provider + Reason for Visit * Reason Onset Date Comments Medications Refill 08/22/2012 Encounter Details Date Type Department Care Team (Late st Contact Info) Description 08/22/2012 Refill [facility] Family Medicine [address] [address] Roxanna Hannah MD [address] [place] [phone] Medications Refill Social History Tobacco Use Types [...] documented as of this encounter Care Teams Template Cutter Relationship Specialty Start Date End Date Roxanna Hannah MD [address] [place] [phone] PCP - General 03/28/09 05/31/20 documented as of this encounter
--- OUTSIDE RECORDS SUMMARY | 2025-01-06 15:38 | XMS_ITS | Encounter Summary ---
Author Organization [facility] Address [address] [place] [address] Care Team Providers Care Validation Analyst Name Role Phone Roxanna Hannah MD Primary Care Provider + Reason for Visit * Reason Comments Follow-up Encounter Details Date Type Department Care Team (Late st Contact Info) Description 02/23/2014 8:45 EDT Office Visit [facility] Urology - [address] [address] Kye Brown, DO [address] [facility], [address] [place] [address] Testicular pain (Primary Dx); Hydrocele, [...] can feel the testicle. It goes about intermediate up the cord, but above that you [...] Ketones Trace(A) Neg [facility] Specific [place] >=1.030 1.001 - 1.035 [facility] Blood Neg Neg [facility] pH 6.0 4.6 - 8.0 [facility] Protein Neg Neg [facility] Urobilinogen 0.2 0.2 - 1.0 E.U./dl [facility] Nitrite Neg Neg [facility] Leuk Esterase Neg Neg [facility] database administration associate ID [id number] [facility] Comment:Test performed at [facility] Urine specimen (specimen) 02/23/2014 8:23 EDT 02/23/2014 8:35 EDT us Kye Brown DO POINT OF CARE TEST ORDERABL ES Final Result Performing Organization Address City/State/[facility] Co de Phone Number [facility] [address] [place] [address] documented in this encounter Visit Diagnoses Diagnosis Testicular pain- Primary Unspecified disorder of male genital organs Hydrocele, unspecified documented in this encounter Care Teams Validation Analyst Relationship Specialty Start Date End Date Roxanna Hannah MD [address] [place] [phone] PCP - General 03/28/09 05/31/20 documented as of this encounter
--- OUTSIDE RECORDS SUMMARY | 2025-01-06 15:38 | XMS_ITS | Encounter Summary ---
Author Organization [facility] Address [address] [place] [address] Care Team Providers Care Cadd Drafter Name Role Phone Roxanna Hannah MD Primary Care Provider + Reason for Visit * Reason Onset Date Comments Shoulder Pain 06/17/2012 Encounter Details Date Type Department Care Team (Late st Contact Info) Description 06/17/[address] [phone] Roxanna Hannah MD [address] [place] [phone] Shoulder Pain Social History Tobacco Use [...] on filedocumented in this encounter Care Teams Cadd Drafter Relationship Specialty Start Date End Date Roxanna Hannah MD [address] [place] [phone] PCP - General 03/28/09 05/31/20 documented as of this encounter
--- OUTSIDE RECORDS SUMMARY | 2025-01-06 15:38 | XMS_ITS | Encounter Summary ---
Author Organization [facility] Address [address] [place] [address] Care Team Providers Care News Reporter Name Role Phone Roxanna Hannah MD Primary Care Provider + Reason for Visit * Reason Comments Other Encounter Details Date Type Department Care Team (Late st Contact Info) Description 10/04/2013 [facility] Family Medicine [address] [phone] Roxanna Hannah MD [address] [place] [address] [phone] Other Social History Tobacco Use Types Packs/Day [...] [place] - 10/05/2013 1127 EST Per [facility] Mail Order, patient has prescriptions on file. [...] filedocumented in this encounter Care Teams News Reporter Relationship Specialty Start Date End Date Roxanna Hannah MD [address] [place] [phone] PCP - General 03/28/09 05/31/20 documented as of this encounter
--- OUTSIDE RECORDS SUMMARY | 2025-01-06 15:38 | XMS_ITS | Encounter Summary ---
Author Organization [facility] Address [address] [place] [address] Care Team Providers Care Centrifugal Separator Name Role Phone Roxanna Hannah MD Primary Care Provider + Encounter Details Date Type Department Care Team (Late st Contact Info) Description 10/28/2013 Orders Only [facility] Family Medicine - [address] [phone] Roxanna Hannah MD [address] [place] [phone] Seizure disorder ([facility]) (Primary Dx) Social History Tobacco Use [...] DERABLES Final Result [facility] [address] [place] [address] documented in this encounter Visit Diagnoses Diagnosis Seizure disorder ([facility])- Primary Unspecified epilepsy without mention of intractable epilepsy documented in this encounter Care Teams Centrifugal Separator Relationship Specialty Start Date End Date Roxanna Hannah MD [address] [place] [phone] PCP - General 03/28/09 05/31/20 documented as of this encounter
--- OUTSIDE RECORDS SUMMARY | 2025-01-06 15:38 | XMS_ITS | Encounter Summary ---
Author Organization [facility] Address [address] [place] [address] Care Team Providers Care Carbon Rod Inserter Name Role Phone Roxanna Hannah MD Primary Care Provider + Reason for Visit * Reason Comments Medications Refill Pt would like to rev iw all his medication today Encounter Details Date Type Department Care Team (Late st Contact Info) Description 10/27/2013 10:45 EST Office Visit [facility] Medicine [address] [address] Roxanna Hannah MD [address] [place] [address] [phone] Needs flu shot (Primary Dx); Essential hypertension; [...] Camryn Wise [place] - 10/27/2013 10:57 EST ebookpie Online Activation Thank you for your interest in [facility] patient portal, [employer]. Please follow the instructions below to set up your account. [employer] allows you to send messages to your doctor, view your test results, renew your prescriptions, request appointments, pay bills and more. How Do I Sign Up? 1. In your Internet browser, go to [email or web address] 2. Click on the Accept My Invitation Code link in the Set Up an Account box. You will see the page: Accept My Invitation. 3. Enter your [employer] Invitation Code exactly as it appears below. You will not need to use this code after you???ve completed the sign-up process. If you do not sign up before the expiration date, you must request a new code. [employer] Invitation Code: [email or web address] Expires: 12/26/2013 10:57 4. Enter your Date of (mm/dd/yyyy) as indicated and click Next. You will be taken to the nextpage to create your account. 5. Create a ebookpie username. This will be your [employer] Online username and cannot be changed, sothink of one that is secure and easy to remember. 6. Create a [employer] password. You can change your password at any time. Enter your passwordagain to confirm it. 7. Enter your e-mail address. You will receive e-mail notifications when new information is available in [employer]. 8. Enter your security question and answer. These can be used at a later time if you forget your password. 9. Click Create Account. You can now view your medical record and billing information. If you have been granted proxy access to another patient's chart, you will see that patient listed under Family Records when you log into your [employer] Online account. Additional Information If you have questions, you can email [email or web address] or call to talk to our ebookpie Customer Service Center, which is open 24 hours a day, 7 days a week. Remember, [employer] is NOT to be used for urgent [...] There is no history of kidney disease, CAD/VT, heart failure or a thyroid problem. There [...] Barriers: None Outcomes: independent Patient Education Topic: [employer] Online Method: Handout and Verbal Taught to: [...] ORDERAB LES Final Result Performing Organization Address [facility] Co de Phone Number [facility] [address] [place] [address] * (ABNORMAL) VALPROIC ACID LEVEL (10/27/2013 11:47 EST) Valproic Acid 106.5(H) 50.0 - 100.0 ug/ml [facility] Blood specimen (specimen) 10/27/2013 11:47 EST 10/27/2013 18:23 EST us Roxanna Hannah MD CHEMISTRY & BLOOD GAS OR DERABLES Final Result Performing Organization Address [facility] Co de Phone Number [facility] [address] [place] [address] * COMPREHENSIVE METABOLIC PANEL (CMP) (10/27/2013 11:47 EST) Pathologist [facility] Potassium 4.3 3.5 - 5.0 mEq/L [facility] [...] OR DERABLES Final Result Performing Organization Address City/State/[facility] Co de Phone Number [facility] [address] [place] [address] * LIPID PROFILE (INCLUDES CHOLESTEROL, TRIGLYCERIDES, HDL, LDL) (10/27/2013 11:47 EST) Pathologist [facility] Cholesterol 138 mg/dl [facility] Comment: Desirable:<200 Borderline High:200-239 High:>ug=647 Triglycerides 96 mg/dl [facility] Comment: Normal:<150 Borderline High:150-199 High:200-499 Very High:>tn=370 HDL 34 mg/dl [facility] Comment: Low:<40 Normal:40-60 Desirable: >60 LDL, Calculated 85 mg/dl [facility] Comment: Optimal:<100 Near Optimal:100-129 Borderline High:130-159 High:160-189 Very High:>rt=255 Chol/HDL Ratio 4.1 [facility] Fasting? Unknown [facility] Non HDL Cholesterol 104 mg/dl [facility] Comment: Desirable:<130 Borderline:130-159 High: 160-189 Very High: >xx=800 Blood specimen (specimen) 10/27/2013 11:47 EST 10/27/2013 18:23 EST Roxanna Hannah MD CHEMISTRY & BLOOD GAS OR DERABLES Final Result Performing Organization Address [facility] de Phone Number [facility] [address] [place] [address] * HEMOGLOBIN A1C (10/27/2013 11:47 EST) Hemoglobin [...] Final Result Performing Organization Address [facility] de Phone Number [facility] [address] [place] [address] documented in this encounter Visit Diagnoses Diagnosis [...] 10/27/2013 documented in this encounter Care Teams Carbon Rod Inserter Relationship Specialty Start Date End Date Roxanna Hannah MD [address] [place] [phone] PCP - General 03/28/09 05/31/20 documented as of this encounter
--- OUTSIDE RECORDS SUMMARY | 2025-01-06 15:38 | XMS_ITS | Encounter Summary ---
Author Organization [facility] Address [address] [place] [address] Care Team Providers Care Ore Mixer Name Role Phone Roxanna Hannah MD Primary Care Provider + Reason for Visit * Reason Onset Date Comments Medications Refill 04/25/2013 Encounter Details Date Type Department Care Team (Late st Contact Info) Description 04/25/2013 Refill [facility] Medicine [address] [address] Roxanna Hannah MD [address] [place] [address] [phone] Medications Refill Social History Tobacco Use Types [...] documented as of this encounter Care Teams Ore Mixer Relationship Specialty Start Date End Date Roxanna Hannah MD [address] [place] [phone] PCP - General 03/28/09 05/31/20 documented as of this encounter
--- OUTSIDE RECORDS SUMMARY | 2025-01-06 15:38 | XMS_ITS | Encounter Summary ---
Author Organization [facility] Address [address] [place] [address] Care Team Providers Care Cotton Grader Name Role Phone Yanira Romero MD Primary Care Provider + Reason for Referral * (Routine) - Closed Specialty Diagnoses / Procedures Referred By Nela t Referred To Contact Karlee Baig PA-C Phone: tel: fax: Referral ID Status Reason Start Date Expiration Date V isits Requested Visits Authorized [id number] Closed Specialty Services Required 03/10/2014 1 1 * (Routine) - Closed Specialty Diagnoses / Procedures Referred By Contac t Referred To Contact Karlee Baig PA-C Phone: tel: fax: Referral ID Status Reason Start Date Expiration Date V isits Requested Visits Authorized [id number] Closed Specialty Services Required 03/10/2014 1 1 * (Routine) - Closed Specialty Diagnoses / Procedures Referred By Contac t Referred To Contact Karlee Baig PA-C Phone: tel: fax: Referral ID Status Reason Start Date Expiration Date V isits Requested Visits Authorized [id number] Closed Specialty Services Required 03/10/2014 1 1 [...] Expiration Date V isits Requested Visits Authorized [id number] Closed Specialty Services Required 03/10/[address] Brown in 2-4 weeks. [place] from the office will call with your scheduled appointment * (Routine) - Closed Specialty Diagnoses / Procedures Referred By Nela bravo Referred To Contact Karlee Baig PA-C Phone: tel: fax: Referral ID Status Reason Start Date Expiration Date V isits Requested Visits Authorized [id number] Closed Specialty Services Required 03/10/2014 1 1 [...] EDT - 03/10/2014 13:20 EDT Hospital Encounter [facility] Perioperative Services- [address] [address] Aminta Brown, 111 [facility], [address] [place] [phone] Sandra (Primary Dx) Discharge Disposition: Home or [...] documented in this encounter Nursing Notes * PATIENT SVCS MGR, SCAN 2 - 03/16/2014 1607 EDT documented in this encounter OR Notes * Anesthesia Preprocedure Evaluation - PATIENT SVCS MGR, SCAN 2 - 03/17/2014 1300 EDT * OR PreOp - PATIENT SVCS MGR, SCAN 2 - 03/16/2014 1607 EDT * OR Surgeon - Aminta Brown DO - 03/10/2014 195 EDT OPERATIVE REPORT SERVICE DATE: 03/10/2014 PREOPERATIVE DIAGNOSIS: Large right hydrocele. POSTOPERATIVE DIAGNOSIS: Large right hydrocele. PROCEDURE: Right hydrocelectomy. SURGEON: Aminta Brown DO LICENSED PESTICIDE APPLICATOR: AKOSUA Rodriguez (no qualified urology attendings or [...] AM / Aminta Brown DO jn Confirmation: [id number] Dictation ID: [id number] * OR PreOp - PATIENT SVCS MGR, SCAN 2 - 03/10/2014 1205 EDT * Anesthesia Procedure Notes - PATIENT SVCS MGR, SCAN 2 - 03/10/2014 1203 EDT documented [...] 03/16/2014 16:0 7 EDT us Scan 2 Plush Brusher PROCEDURE/MINOR SURGICAL OR DERABLES Final Result * SURGICAL PATHOLOGY (03/10/2014 14:12 EDT) Pathology Report: SURGICAL PATHOLOGY REPORT Reports generated via electronic interface contain original data; however they are lacking the format of the original report. Caution should be taken when reading/interpreti ng unformatted reports. Name: ? MARIO CURRY ? Accession #: ? [id number] ? : ? 1955 (Age: 58) ??M ? Collect Date: ? 03/10/2014 ? Location: ? [facility] ? Receive Date: ? 03/10/2014 ? Provider: [...] cut surface that is vu-white and homogenous. ??Industrial Hygiene Engineer sections of the specimen are submitted as cassette 1. Dr. Lowe 03/10/2014 04:08 PM End of Report [facility] 03/10/2014 14:1 2 EDT 03/10/2014 14:12 EDT us Aminta Brown DO PATHOLOGY ORDERABLES Final Result [facility] [address] [place] [address] documented in this encounter Visit Diagnoses Diagnosis [...] 03/10/2014 documented in this encounter Care Teams Cotton Grader Relationship Specialty Start Date End Date Yanira Romero MD [address] [place] [phone] PCP - General 03/28/09 05/31/20 documented as of this encounter
--- OUTSIDE RECORDS SUMMARY | 2025-01-06 15:38 | XMS_ITS | Encounter Summary ---
Author Organization [facility] Address [address] [place] [address] Care Team Providers Care Telephone Operator Receptionist Name Role Phone Roxanna Hannah MD Primary Care Provider + Reason for Visit * Reason Comments Back Pain For several weeks. N otices popping running down back. Encounter Details Date Type Department Care Team (Late st Contact Info) Description 04/03/2013 8:30 EDT Office Visit [facility] Medicine [address] [phone] Unknown, Provider, MD Arthur, Pradeep Michel MD [address] [place] [phone] Spasm of muscle, back (Primary Dx) [...] you have bladder orbowel problems, please call. [facility] Patient Instructions Low Back Pain: Exercises Your [...] infront of you at the same time. Zwoj-ot-xnhmu exercise 1. Lie on your back with [...] Where can you learn more? Go to [email or web address].net/fahc Enter Z938 in the search box to learn more about Low Back Pain: Exercises. ?? [phone] [employer]. Care instructions adapted under license by [facility] This care instruction is for use with your licensed healthcare professional. If you have questions about a medical condition or this instruction, always ask your healthcare professional. [employer] disclaims any warranty or liability for your use of this information. Content Version: 9.2.611084; Last Revised: October 14, 2009 documented in [...] Dr. Michel. Signed, Pradeep Arthur MD, Pager [phone] [facility] Special Systems Technician 04/03/2013 18:43 Patient Instructions We will start [...] you have bladder orbowel problems, please call. [facility] Patient Instructions Low Back Pain: Exercises Your Care Instructions (these were provided, but are deleted here for brevity) documented in this encounter Plan of Treatment Not on file documented as of this encounter Visit Diagnoses Diagnosis Spasm of muscle, back- Primary Other symptoms referable to back documented in this encounter Care Teams Telephone Operator Receptionist Relationship Specialty Start Date End Date Roxanna Hannah MD [address] [place] [phone] PCP - General 03/28/09 05/31/20 documented as of this encounter
--- OUTSIDE RECORDS SUMMARY | 2025-01-06 15:38 | XMS_ITS | Encounter Summary ---
Author Organization [facility] Address [address] [place] [address] Care Team Providers Care Communications Executive Name Role Phone Roxanna Hannah MD Primary Care Provider + Encounter Details Date Type Department Care Team (Late st Contact Info) Description 03/09/2014 Pre-Procedure Orders Encounter [facility] Urology - [address] [address] Kye Brown, DO [address] [facility], [address] [place] [address] Hydrocele (Primary Dx) Social History [...] unspecified documented in this encounter Care Teams Communications Executive Relationship Specialty Start Date End Date Roxanna Hannah MD [address] [place] [phone] PCP - General 03/28/09 05/31/20 documented as of this encounter
--- OUTSIDE RECORDS SUMMARY | 2025-01-06 15:38 | XMS_ITS | Encounter Summary ---
Author Organization [facility] Address [address] [place] [address] Care Team Providers Care Paint Roller Winder Name Role Phone Roxanna Hannah MD Primary Care Provider + Reason for Visit * Reason Onset Date Comments Diarrhea 12/24/2013 Fever 12/24/2013 Encounter Details Date Type Department Care Team (Late st Contact Info) Description 12/24/2013 Telephone [facility] Family Medicine [address] [phone] Roxanna Hannah MD [address] [place] [phone] Diarrhea; Fever Social History Tobacco Use Types [...] on filedocumented in this encounter Care Teams Paint Roller Winder Relationship Specialty Start Date End Date Roxanna Hannah MD [address] [place] [phone] PCP - General 03/28/09 05/31/20 documented as of this encounter
--- OUTSIDE RECORDS SUMMARY | 2025-01-06 15:38 | XMS_ITS | Encounter Summary ---
Author Organization [facility] Address [address] [place] [address] Care Team Providers Care Office Technician Name Role Phone Roxanna Hannah MD Primary Care Provider + Reason for Visit * Reason Onset Date Comments Medications Refill 06/11/2012 Encounter Details Date Type Department Care Team (Late st Contact Info) Description 06/11/2012 Refill [facility] Family Medicine - [address] [address] Roxanna Hannah MD [address] [place] [phone] Medications Refill Social History Tobacco Use Types [...] on filedocumented in this encounter Care Teams Office Technician Relationship Specialty Start Date End Date Roxanna Hannah MD [address] [place] [phone] PCP - General 03/28/09 05/31/20 documented as of this encounter
--- OUTSIDE RECORDS SUMMARY | 2025-01-06 15:38 | XMS_ITS | Encounter Summary ---
Author Organization [facility] Address [address] [place] [address] Care Team Providers Care Projection Printer Name Role Phone Roxanna Hannah MD Primary Care Provider + Reason for Referral * Radiology Services (Routine/Next Available) - Closed Specialty Diagnoses / Procedures Referred By Nela bravo Referred To Contact Diagnoses LBP radiating to right leg Procedures L SPINE 2-3 VIEWS Roxanna Hannah MD Phone: tel: fax: Referral ID Status Reason Start Date Expiration Date Visits Re quested Visits Authorized [id number] Closed 06/03/2013 1 1 Reason for Visit * Reason Comments Back Pain been going on for a few months-has been seen once before for this same issue Medication Questions Encounter Details Date Type Department Care Team (Late st Contact Info) Description 06/03/2013 11:00 EDT Office Visit [facility] Family Medicine - [address] [address] Roxanna Hannah MD [address] [place] [phone] LBP radiating to right leg (Primary Dx) [...] have not been helping Laid off from [employer] 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 [...] VIEWS 06/03/2013 12:24 PM Signs and Symptoms/Comments: 724.9-Rvrimbm-BXJ-9-CM; Right LBP Comparisons: Thoracic spine MRI 01/26/2011. [...] Lumbago documented in this encounter Care Teams Projection Printer Relationship Specialty Start Date End Date Roxanna Hannah MD [address] [place] [phone] PCP - General 03/28/09 05/31/20 documented as of this encounter
--- OUTSIDE RECORDS SUMMARY | 2025-01-06 15:38 | XMS_ITS | Encounter Summary ---
Author Organization [facility] Address [address] [place] [address] Care Team Providers Care Back Facer Name Role Phone Roxanna Hannah MD Primary Care Provider + Reason for Visit * Reason Comments Follow-up Scrotal mass on the right side and UA Encounter Details Date Type Department Care Team (Late st Contact Info) Description 01/28/2013 8:00 EST Office Visit [facility] Urology - [address] [address] Kye Brown, DO 111 [facility], [address] [place] [phone] Hydrocele, unspecified (Primary Dx) Social [...] documented as of this encounter Care Teams Back Facer Relationship Specialty Start Date End Date Roxanna Hannah MD [address] [place] [phone] PCP - General 03/28/09 05/31/20 documented as of this encounter
--- OUTSIDE RECORDS SUMMARY | 2025-01-06 15:38 | XMS_ITS | Encounter Summary ---
Author Organization [facility] Address [address] [place] [address] Care Team Providers Care Websphere Commerce Consultant Name Role Phone Roxanna Hannah MD Primary Care Provider + Reason for Visit * Reason Onset Date Comments Medications Refill 07/17/2013 Encounter Details Date Type Department Care Team (Late st Contact Info) Description 07/17/2013 Refill [facility] Medicine [address] [address] Roxanna Hannah MD [address] [place] [address] [phone] Medications Refill Social History Tobacco Use Types [...] 0946 EDT Medication(s) Requested: Simvastatin Divalproex Pharmacy: [facility] mail order Last Refill Date: Simvastatin ? Divalproex ? Last Visit Date: 06.03.13 Next Visit Date: Visit date not found Is patient out of medication? Unknown Aurea Munson 07/17/2013 9:46 documented in this encounter Plan of Treatment Not on file documented as of this encounter Visit Diagnoses Diagnosis HLD (hyperlipidemia)- Primary Other and unspecified hyperlipidemia Seizure disorder ([facility]) Unspecified epilepsy without mention of intractable epilepsy [...] documented as of this encounter Care Teams Websphere Commerce Consultant Relationship Specialty Start Date End Date Roxanna Hannah MD [address] [place] [address] [phone] PCP - General 03/28/09 05/31/20 documented as of this encounter
--- OUTSIDE RECORDS SUMMARY | 2025-01-06 15:38 | XMS_ITS | Encounter Summary ---
Author Organization [facility] Address [address] [place] [address] Care Team Providers Care Photograph Finisher Name Role Phone Roxanna Hannah MD Primary Care Provider + Reason for Referral * Radiology Services (Routine/Next Available) - Closed Specialty Diagnoses / Procedures Referred By Nela bravo Referred To Contact Diagnoses Shoulder pain Procedures SHOULDER 2 OR MORE VIEWS Roxanna Hannah MD Phone: tel: fax: Referral ID Status Reason Start Date Expiration Date Visits Re quested Visits Authorized [id number] Closed 07/23/2012 1 1 * Consult (Routine/Next Available) - Closed Specialty Diagnoses / Procedures Referred By Nela bravo Referred To Contact Diagnoses Shoulder pain Roxanna Hnanah MD Phone: tel: fax: [facility] [address] [address] Referral ID Status Reason Start Date Expiration Date V isits Requested Visits Authorized [id number] Closed Specialty Services Required 07/23/2012 1 1 [...] Info) Description 07/23/2012 11:45 EDT Office Visit [address] [address] Roxanna Hannah MD [address] [place] [phone] Shoulder pain (Primary Dx) Social History [...] then surgical repair with Dr. Salazar in [place] Pain is progressing. Even simple movements has partial ext rotation trigger intense pain No weakness or numbness ROM limitations less concerning to him as he always anticipated this Went through PT at [facility] in [place] last fall Last January did see ortho in [facility], had posterior subacromial injection that did offer some relief for 2-3 mos Never followed up however (was not sure what benefit it would offer) Last shoulder imaging was plain XRAY in Sep 2011 ([facility]) showed moderate degenerative changes in glenoid [...] shoulder pain REF to Dr. Lorenzo at [facility] in [place] Trial Naprosyn 500 mg BID [...] documented as of this encounter Care Teams Photograph Finisher Relationship Specialty Start Date End Date Roxanna Hannah MD [address] [place] [phone] PCP - General 03/28/09 05/31/20 documented as of this encounter
--- OUTSIDE RECORDS SUMMARY | 2025-01-06 15:38 | XMS_ITS | Encounter Summary ---
Author Organization [facility] Address [address] [place] [address] Care Team Providers Care Personal Banking Representative Name Role Phone Roxanna Hannah MD Primary Care Provider + Reason for Visit * Reason Onset Date Comments Appointment Related 11/23/2013 Encounter Details Date Type Department Care Team (Late st Contact Info) Description 11/23/2013 Telephone [facility] Urology - [address] [address] Kye Brown, DO [address] [facility], [address] [place] [address] Appointment Related Social History Tobacco [...] on filedocumented in this encounter Care Teams Personal Banking Representative Relationship Specialty Start Date End Date Roxanna Hannah MD [address] [place] [phone] PCP - General 03/28/09 05/31/20 documented as of this encounter
--- OUTSIDE RECORDS SUMMARY | 2025-01-06 15:38 | XMS_ITS | Encounter Summary ---
Author Organization [facility] Address [address] [place] [address] Care Team Providers Care Coal Briquette Machine Operator Name Role Phone Roxanna Hannah MD Primary Care Provider + Reason for Visit * Reason Onset Date Comments Medications Refill 05/02/2012 Encounter Details Date Type Department Care Team (Late st Contact Info) Description 05/02/2012 Refill [facility] Family Medicine [address] [address] Roxanna Hannah MD [address] [place] [address] [phone] Medications Refill Social History Tobacco Use Types [...] Telephone Encounter - Isaura Ray - 05/02/2012 8418 EDT Name of Medication Omeprazole #90 w/ [...] documented as of this encounter Care Teams Coal Briquette Machine Operator Relationship Specialty Start Date End Date Roxanna Hannah MD [address] [place] [address] [phone] PCP - General 03/28/09 05/31/20 documented as of this encounter
--- OUTSIDE RECORDS SUMMARY | 2025-01-06 15:38 | XMS_ITS | Encounter Summary ---
Author Organization [facility] Address [address] [place] [address] Care Team Providers Care Data Management Associate Name Role Phone Roxanna Hannah MD Primary Care Provider + Reason for Visit * Reason Onset Date Comments Medications Refill 07/17/2013 Encounter Details Date Type Department Care Team (Late st Contact Info) Description 07/17/2013 Refill [facility] Medicine [address] [address] Roxanna Hannah MD [address] [place] [address] [phone] Medications Refill Social History Tobacco Use Types [...] Telephone Encounter - Cleo Castle - 07/17/2013 0947 EDT Medication(s) Requested: Hydrochlorothiazide Pharmacy: [facility] Last Refill Date: 07/24/12 Last [...] documented as of this encounter Care Teams Data Management Associate Relationship Specialty Start Date End Date Roxanna Hannah MD [address] [place] [phone] PCP - General 03/28/09 05/31/20 documented as of this encounter
--- OUTSIDE RECORDS SUMMARY | 2025-01-06 15:38 | XMS_ITS | Encounter Summary ---
Author Organization [facility] Address [address] [place] [address] Care Team Providers Care Radio Frequency Engineer Name Role Phone Roxanna Hannah MD Primary Care Provider + Reason for Visit * Reason Onset Date Comments Orders (Non Pre-visit) 01/28/2013 Encounter Details Date Type Department Care Team (Late st Contact Info) Description 01/28/2013 Orders Only [facility] Urology - [address] [address] Kye Brown, DO 111 [facility], [address] [place] [address] Testicular pain (Primary Dx) Social [...] organs documented in this encounter Care Teams Radio Frequency Engineer Relationship Specialty Start Date End Date Roxanna Hannah MD [address] [place] [phone] PCP - General 03/28/09 05/31/20 documented as of this encounter
--- OUTSIDE RECORDS SUMMARY | 2025-01-06 15:38 | XMS_ITS | Encounter Summary ---
Author Organization [facility] Address [address] [place] [address] Care Team Providers Care Plastic Block Boiler Reliner Name Role Phone Roxanna Hannah MD Primary Care Provider + Encounter Details Date Type Department Care Team (Late st Contact Info) Description 11/06/2012 6:42 EST - 11/07/2012 12:57 EST Hospital Encounter [facility] General Surgery Unit [address] [place] [address] Flex Aaron MD [address] [place] [phone] Unspecified polyarthropathy or polyarthritis, shoulder region [...] when ready for DC. Rx filled at [facility] in [facility]. [facility] Brant Oliveros, INSTANT POTATO PROCESSING SUPERVISOR #[id number] * Yashira Salazar, KALYANI - 11/07/2012 [...] refill intact. Pulses intact. Sensation intact. Good skiver heel tap strength. New dressing applied today. UO 755 [...] Trinh - 11/07/2012 0907 EST Rehabilitation Therapies [facility] Physical Therapy Initial/Discontinue Evaluation Note Date of [...] to *Left Total ShoulderThe patient lives at [address] [place] [address] Home environment Lives: with spouse Caregiver Support: [...] shoulder flexion, ABD; 5/5 biceps, triceps and skiver heel tap strength; evaluated in supine with head of [...] other consults recommended at this time Pager: [phone] Dorothy Trinh [facility] 11/07/2012 9:07 Cosigned by Nathan Lewis, PT [...] yes MULTIVITAMINS (MULTI-VITAMIN ORAL) 10/28/2012 yes GLUCOSAMINE [id number] ORAL yes Cod Liver Oil Cap yes documented in this encounter H&P Notes * LICENSED SURVEYOR, SCAN 2 - 11/12/2012 0630 EST * [...] documented in this encounter Procedure Notes * LICENSED SURVEYOR, SCAN 2 - 11/12/2012 0630 ESTAssociated Order(s): ECG REPORT - SCANNED * LICENSED SURVEYOR, SCAN 2 - 11/12/2012 0630 ESTAssociated Order(s): IMPLANT RECORD - SCANNED documented in this encounter Nursing Notes * LICENSED SURVEYOR, SCAN 2 - 11/12/2012 0630 EST documented in this encounter OR Notes * OR PreOp - LICENSED SURVEYOR, SCAN 2 - 11/12/2012 0630 EST * OR Surgeon - Flex Aaron MD - 11/07/2012 0946 EST OPERATIVE REPORT SERVICE DATE: 11/06/2012 SURGEON: Flex Aaron MD YARN INSPECTOR: Valorie Diehl PA-C (No residents available for [...] was then used to create the central packing machine pilot can router hole. The drill was then used, followed [...] PM / Flex Aaron MD ss Confirmation: [id number] Dictation ID: [id number] * Anesthesia Procedure Notes - LICENSED SURVEYOR, SCAN 2 - 11/06/2012 1155 EST * OR PreOp - LICENSED SURVEYOR, SCAN 2 - 11/06/2012 1150 EST * Anesthesia Preprocedure Evaluation - LICENSED SURVEYOR, SCAN 2 - 11/06/2012 0847 EST documented in this encounter Miscellaneous Notes * Scanned Note-Null - LICENSED SURVEYOR, SCAN 2 - 11/12/2012 0630 EST * Scanned Note-Null - LICENSED SURVEYOR, SCAN 2 - 11/12/2012 0630 EST * [...] (11/06/12 1345),Numeric Pain Level (Scale 1-10): 3 Maroi Curry participated in this evaluation unless otherwise [...] PORTILLO 11/06/2012 11:41 * Scanned Note-Null - LICENSED SURVEYOR, SCAN 2 - 11/06/2012 0646 EST * Scanned Note-Null - LICENSED SURVEYOR, SCAN 2 - 11/06/2012 0646 EST documented [...] EST Narrative 11/12/2012 6:40 EST Procedure Note LICENSED SURVEYOR, SCAN 2 - 11/12/2012 6:30 EST us Scan 2 Car Pincher PROCEDURE/MINOR SURGICAL OR DERABLES Final Result * ECG REPORT - SCANNED (11/12/2012 6:30 EST) 11/12/2012 6:30 EST Narrative 11/12/2012 6:40 EST Procedure Note LICENSED SURVEYOR, SCAN 2 - 11/12/2012 6:30 EST us Scan 2 Car Pincher PROCEDURE/MINOR SURGICAL OR DERABLES Final Result * [...] ORDERAB LES Final Result Performing Organization Address [facility] Co de Phone Number [facility] [address] [place] [address] * CREATININE (11/07/2012 5:27 EST) Creatinine 0.72 0.66 - 1.25 mg/dl [facility] GFR, Calculated >60 >60 ml/min/1.7 3m2 [facility] Blood specimen (specimen) 11/07/2012 5:27 EST 11/07/2012 6:15 EST Valorie Hopkins-C CHEMISTRY & BLOOD GAS OR DERABLES Final Result Performing Organization Address [facility] Phone Number [facility] [address] [place] [address] * BUN (11/07/2012 5:27 EST) BUN 17 10 - 26 mg/dl [facility] Blood specimen (specimen) 11/07/2012 5:27 EST 11/07/2012 6:15 EST Valorie Hopkins-C CHEMISTRY & BLOOD GAS OR DERABLES Final Result Performing Organization Address [facility] de Phone Number [facility] [address] [place] [address] * ELECTROLYTES (11/07/2012 5:27 EST) Sodium 138 [...] DERABLES Final Result [facility] [address] [place] [address] * SHOULDER 2 OR MORE VIEWS (11/06/2012 [...] TESTS Final Resul t Performing Organization Address [facility] Co de Phone Number [facility] [address] [place] [address] * PREPARE RED BLOOD CELLS (11/06/2012 7:18 EST) Product Code -3 RED BLOOD CELLS,ADENINE- SALINE ADDED,LEUKOCYT ES REDUCED [facility] Donor Number [id number] [facility] Unit ABO A [facility] Unit Rh POS [facility] Cross Match Interp Compatible [facility] Unit Status Released From Crossmatch [facility] 11/06/2012 7:18 EST Provider Unknown BLOOD BANK ORDERABLES Final Result Performing Organization Address [facility] de Phone Number [facility] [address] [place] [address] documented in this encounter Visit Diagnoses Diagnosis [...] mouth 2 times daily. 01/16/2011 11/07/2012 GLUCOSAMINE [id number] ORAL Take 1 Tab by mouth daily. [...] Renata 11/06/12 at 1545, Until Discontinued, Routine 1611 [...] 11/07/2012 documented in this encounter Care Teams Plastic Block Boiler Reliner Relationship Specialty Start Date End Date Roxanna Hannah MD [address] [place] [phone] PCP - General 03/28/09 05/31/20 documented as of this encounter
--- OUTSIDE RECORDS SUMMARY | 2025-01-06 15:38 | XMS_ITS | Encounter Summary ---
Author Organization [facility] Address [address] [place] [address] Care Team Providers Care Signal Helper Name Role Phone Roxanna Hannah MD Primary Care Provider + Reason for Visit * Reason Onset Date Comments Appointment Related 03/11/2014 Encounter Details Date Type Department Care Team (Late st Contact Info) Description 03/11/2014 Telephone [facility] Urology - [address] [phone] Kye Brown, DO 111 [facility], [address] [place] [address] Appointment Related Social History Tobacco [...] on filedocumented in this encounter Care Teams Signal Helper Relationship Specialty Start Date End Date Roxanna Hannah MD [address] [place] [phone] PCP - General 03/28/09 05/31/20 documented as of this encounter
--- OUTSIDE RECORDS SUMMARY | 2025-01-06 15:38 | XMS_ITS | Encounter Summary ---
Author Organization [facility] Address [address] [place] [address] Care Team Providers Care Technical Associate Name Role Phone Roxanna Hannah MD Primary Care Provider + Reason for Visit * Reason Onset Date Comments Medications Refill 05/09/2014 Encounter Details Date Type Department Care Team (Late st Contact Info) Description 05/09/2014 Refill [facility] Family Medicine [address] [address] Roxanna Hannah MD [address] [place] [address] [phone] Medications Refill Social History Tobacco Use Types [...] - 05/10/2014 1104 EDT Per Dest[facility] at [facility] Mail Order, patient is all [...] filedocumented in this encounter Care Teams Technical Associate Relationship Specialty Start Date End Date Roxanna Hannah MD [address] [place] [phone] PCP - General 03/28/09 05/31/20 documented as of this encounter
--- OUTSIDE RECORDS SUMMARY | 2025-01-06 15:38 | XMS_ITS | Encounter Summary ---
Author Organization [facility] Address [address] [place] [address] Care Team Providers Care Embossograph Operator Name Role Phone Roxanna Hannah MD Primary Care Provider + Reason for Referral * Consult (Routine/Next Available) - Closed Specialty Diagnoses / Procedures Referred By Nela bravo Referred To Contact Urology Diagnoses Scrotal mass Pradeep Valente MD Referral ID Status Reason Start Date Expiration Date V isits Requested Visits Authorized [id number] Closed Specialty Services Required 01/20/2013 1 1 Question Answer Reason for Request: right scrotal mass Comments (Has seen Dr. Ortiz 07/2010) Reason for Visit * Reason Comments Groin Swelling Encounter Details Date Type Department Care Team (Late st Contact Info) Description 01/20/2013 10:30 EST Office Visit [facility] Family Medicine [address] [address] Pradeep Valente MD Scrotal mass (Primary Dx) [...] Date End Date Roxanna Hannah MD [address] [place] [phone] PCP - General 03/28/09 05/31/20 documented as of this encounter
--- OUTSIDE RECORDS SUMMARY | 2025-01-06 15:38 | XMS_ITS | Encounter Summary ---
Author Organization [facility] Address [address] [place] [address] Care Team Providers Care Channeler Insole Name Role Phone Roxanna Hannah MD Primary Care Provider + Reason for Visit * Reason Comments Post-OP Follow Up Encounter Details Date Type Department Care Team (Late st Contact Info) Description 04/07/2014 14:15 EDT Post-op Visit [facility] Urology - [address] [address] Kye Brown, DO 111 [facility], [address] [place] [address] Testicular pain (Primary Dx); Hydrocele, [...] Ketones 1+(A) Neg [facility] Specific [place] >=1.030 1.001 - 1.035 [facility] Blood Neg Neg [facility] pH 5.5 4.6 - 8.0 [facility] Protein Neg Neg [facility] Urobilinogen 0.2 0.2 - 1.0 E.U./dl [facility] Nitrite Neg Neg [facility] Leuk Esterase Neg Neg [facility] fence supervisor ID [id number] [facility] Comment:Test performed at [facility] Urine specimen (specimen) 04/07/2014 14:32 EDT 04/07/2014 14:41 EDT Kye Brown DO POINT OF CARE TEST ORDERABL ES Final Result Performing Organization Address City/State/[facility] Co de Phone Number [facility] [address] [place] [address] documented in this encounter Visit Diagnoses Diagnosis Testicular pain- Primary Unspecified disorder of male genital organs Hydrocele, unspecified documented in this encounter Care Teams Channeler Insole Relationship Specialty Start Date End Date Roxanna Hannah MD [address] [place] [phone] PCP - General 03/28/09 05/31/20 documented as of this encounter
--- OUTSIDE RECORDS SUMMARY | 2025-01-06 15:38 | XMS_ITS | Encounter Summary ---
Author Organization [facility] Address [address] [place] [address] Care Team Providers Care Aging Department Supervisor Name Role Phone Roxanna Hannah MD Primary Care Provider + Unknown, Provider Primary Care Provider Unava ilRoxanna Bourne MD Primary Care Provider + Rebeca Garcia Primary Care Provider + Reason for Visit * Reason Onset Date Comments Medications Refill 07/02/2014 Encounter Details Date Type Department Care Team (Late st Contact Info) Description 07/02/2014 Refill [facility] Family Medicine [address] [address] Roxanna Hannah MD [address] [place] [address] [phone] Medications Refill Social History Tobacco Use Types [...] - 07/05/2014 0836 EDT Per Delbert at [facility] patient has refills on file and is [...] documented as of this encounter Care Teams Aging Department Supervisor Relationship Specialty Start Date End Date Roxanna Hannah MD [address] [place] [phone] PCP - General 03/28/09 05/31/20 Unknown, Per, [address] [place] [phone] PCP - General 06/01/20 09/11/20 Roxanna Hannah MD [address] [place] [phone] PCP - General Family Medicine - Primary Care 09/12/20 12/08/20 Rebeca Garcia PA [address] [place] [phone] PCP - General 11/25/21 documented as of this encounter
--- OUTSIDE RECORDS SUMMARY | 2025-01-06 15:39 | XMS_ITS | Encounter Summary ---
Author Organization [facility] Address [address] [place] [address] Care Team Providers Care Manager Warehouse Name Role Phone Roxanna Hannah MD Primary Care Provider + Encounter Details Date Type Department Care Team (Late st Contact Info) Description 07/17/[address] [facility] Family [address] [address] Roxanna Hannah MD [address] [place] [phone] Social History Tobacco Use Types Packs/Day Years [...] filedocumented in this encounter Care Teams Manager Warehouse Relationship Specialty Start Date End Date Roxanna Hannah MD [address] [place] [phone] PCP - General 03/28/09 05/31/20 documented as of this encounter
--- OUTSIDE RECORDS SUMMARY | 2025-01-06 15:39 | XMS_ITS | Encounter Summary ---
Author Organization [facility] Address [address] [place] [address] Care Team Providers Care Curtain Cleaner Name Role Phone Roxanna Hannah MD Primary Care Provider + Reason for Visit * Reason Comments Back Pain pt is here to follow -up on some upper back pain, pt notes that there has not been a change in these symptoms Encounter Details Date Type Department Care Team (Late st Contact Info) Description 07/26/2010 12:30 EDT Office Visit [address] [phone] Roxanna Hannah MD [address] [place] [address] [phone] Thoracic back pain (Primary Dx) Social History [...] Has not yet had T-spine XR at [facility] (thought he was going to get called [...] spine documented in this encounter Care Teams Curtain Cleaner Relationship Specialty Start Date End Date Rxoanna Hannah MD [address] [place] [phone] PCP - General 03/28/09 05/31/20 documented as of this encounter
--- OUTSIDE RECORDS SUMMARY | 2025-01-06 15:39 | XMS_ITS | Encounter Summary ---
Author Organization [facility] Address [address] [place] [address] Care Team Providers Care Store Team Member Name Role Phone Roxanna Hannah MD Primary Care Provider + Reason for Visit * Reason Onset Date Comments Labs Only 08/28/2010 Encounter Details Date Type Department Care Team (Late st Contact Info) Description 08/28/2010 Telephone [facility] Family Medicine - [address] [phone] Roxanna Hannah MD [address] [place] [address] [phone] Labs Only Social History Tobacco Use Types [...] Telephone Encounter - Alis Cardona - 08/31/2010 7048 EDT Pt call back today to state [...] on filedocumented in this encounter Care Teams Store Team Member Relationship Specialty Start Date End Date Roxanna Hannah MD [address] [place] [address] [phone] PCP - General 03/28/09 05/31/20 documented as of this encounter
--- OUTSIDE RECORDS SUMMARY | 2025-01-06 15:39 | XMS_ITS | Encounter Summary ---
Author Organization [facility] Address [address] [place] [address] Care Team Providers Care Manager Auto Name Role Phone Roxanna Hannah MD Primary Care Provider + Unknown, Provider Primary Care Provider Unava Roxanna Francis MD Primary Care Provider + Rebeca Garcia Primary Care Provider + Reason for Visit * Reason Comments Other Encounter Details Date Type Department Care Team (Late st Contact Info) Description 07/05/2011 Refill [facility] Family Medicine [address] [phone] Roxanna Hannah MD [address] [place] [address] [phone] Other Social History Tobacco Use Types Packs/Day [...] as of this encounter Care Teams Manager Auto Relationship Specialty Start Date End Date Roxanna Hannah MD [address] [place] [phone] PCP - General 03/28/09 05/31/20 Unknown, Provider, [address] [place] [phone] PCP - General 06/01/20 09/11/20 Roxanna Hannah MD [address] [place] [phone] PCP - General Family Medicine - Primary Care 09/12/20 12/08/20 Rebeca Garcia PA [address] [place] [phone] PCP - General 11/25/21 documented as of this encounter
--- OUTSIDE RECORDS SUMMARY | 2025-01-06 15:39 | XMS_ITS | Encounter Summary ---
Author Organization [facility] Address [address] [place] [address] Care Team Providers Care Group Counselor Name Role Phone Roxanna Hannah MD Primary Care Provider + Encounter Details Date Type Department Care Team (Late st Contact Info) Description 02/24/2009 Before PRISM Converted Visit (Maple) [facility] Family Medicine [address] [address]686 Roxanna Hannah MD [address] [place] [phone] Social History Tobacco Use Types Packs/Day [...] [facility] Comment: Desirable:<200 Borderline High:200-239 High:>sg=147 Triglycerides 191(H) 35 - 160 mg/dl [facility] HDL 27 mg/dl [facility] Comment: Low:<40 High(Desirable):>or=60 LDL, Calculated 58 mg/dl [facility] Comment: Optimal:<100 Above optimal:100-129 Borderline High:130-159 High:160-189 Very High:>se=333 Chol/HDL Ratio 4.6 [facility] Fasting? Yes [facility] 02/24/2009 9:50 EDT 02/24/2009 9:52 EDT us Roxanna Hannah MD CHEMISTRY & BLOOD GAS OR DERABLES Final Result [facility] [address] [place] [address] documented in this encounter Visit Diagnoses Not on filedocumented in this encounter Care Teams Group Counselor Relationship Specialty Start Date End Date Roxanna Hannah MD [address] [place] [phone] PCP - General 03/28/09 05/31/20 documented as of this encounter
--- OUTSIDE RECORDS SUMMARY | 2025-01-06 15:39 | XMS_ITS | Encounter Summary ---
Author Organization [facility] Address [address] [place] [address] Care Team Providers Care Instrument Repair Specialist Name Role Phone Roxanna Hannah MD Primary Care Provider + Reason for Visit * Reason Comments Anxiety Mario is here toda y to discuss treatment for anxiety. Encounter Details Date Type Department Care Team (Late st Contact Info) Description 10/30/2011 15:45 EST Office Visit [address] [phone] Unknown, Provider, Suzanne Aguilar MD [address] [place] [phone] Depression; Anxiety Social History Tobacco Use [...] this encounter Progress Notes * Suzanne Schwarz MD - 10/30/2011 1656 EST Chief Complaint Patient [...] None Outcomes: Verbalized understanding Suzanne Schwarz MD Binder Selector PGY3 Attestation statement: I discussed the patient [...] unspecified documented in this encounter Care Teams Instrument Repair Specialist Relationship Specialty Start Date End Date Roxanna Hannah MD [address] [place] [phone] PCP - General 03/28/09 05/31/20 documented as of this encounter
--- OUTSIDE RECORDS SUMMARY | 2025-01-06 15:39 | XMS_ITS | Encounter Summary ---
Author Organization [facility] Address [address] [place] [address] Care Team Providers Care Manager Behavior Name Role Phone Roxanna Hannah MD Primary Care Provider + Encounter Details Date Type Department Care Team (Latest Contact Info) Description 01/26/2011 19:43 EST - 01/26/2011 23:59 EST Hospital Encounter [facility] [address] [place] [address] Pradeep Perkins MD Discharge Disposition: Home or [...] daily. 90 Cap 2 01/16/2011 02/13/2011 GLUCOSAMINE [id number] T ORAL Take 1 Tab by mouth [...] Code Departure Means Destination Home or Self [facility]pc documented in this encounter Plan of Treatment Not on file documented as of this encounter Visit Diagnoses Not on filedocumented in this encounter Care Teams Manager Behavior Relationship Specialty Start Date End Date Roxanna Hannah MD [address] [place] [phone] PCP - General 03/28/09 05/31/20 documented as of this encounter
--- OUTSIDE RECORDS SUMMARY | 2025-01-06 15:39 | XMS_ITS | Encounter Summary ---
Author Organization [facility] Address [address] [place] [address] Care Team Providers Care Blind Eyeletter Name Role Phone Roxanna Hannah MD Primary Care Provider + Reason for Visit * Reason Onset Date Comments Colonoscopy 09/21/2010 Immunizations 09/21/2010 tdap Encounter Details Date Type Department Care Team (Late st Contact Info) Description 09/21/2010 Telephone [facility] Family Medicine - [address] [address] Roxanna Hannah MD [address] [place] [address] [phone] Colonoscopy; Immunizations (tdap) Social History Tobacco Use [...] colon documented in this encounter Care Teams Blind Eyeletter Relationship Specialty Start Date End Date Roxanna Hannah MD [address] [place] [phone] PCP - General 03/28/09 05/31/20 documented as of this encounter
--- OUTSIDE RECORDS SUMMARY | 2025-01-06 15:39 | XMS_ITS | Encounter Summary ---
Author Organization [facility] Address [address] [place] [address] Care Team Providers Care Soft Water Mechanic Name Role Phone Roxanna Hannah MD Primary Care Provider + Encounter Details Date Type Department Care Team (Late st Contact Info) Description 02/24/2009 Before PRISM Converted Visit (Maple) [facility] Family Medicine [address] [phone] Roxanna Hannah MD [address] [place] [phone] Social History Tobacco Use Types Packs/Day [...] DERABLES Final Result [facility] [address] [place] [address] documented in this encounter Visit Diagnoses Not on filedocumented in this encounter Care Teams Soft Water Mechanic Relationship Specialty Start Date End Date Roxanna Hannah MD [address] [place] [phone] PCP - General 03/28/09 05/31/20 documented as of this encounter
--- OUTSIDE RECORDS SUMMARY | 2025-01-06 15:39 | XMS_ITS | Encounter Summary ---
Author Organization [facility] Address [address] [place] [address] Care Team Providers Care Evening Sitter Name Role Phone Unavailable Primary Care Provider Unavailabl e Encounter Details Date Type Department Care Team (Late st Contact Info) Description 02/24/2009 9:42 EDT Hospital Encounter [facility] - Maple conversion [address] [place] [address] Roxanna Hannah MD [address] [place] [phone] Social History Tobacco Use Types Packs/Day Years [...] about your health please visit: [email or web address] [email or web address] e-[email or web address].aspx LDL < 100 Result Component Hyperlipidemia 56( 0 12:18 EST) No Maggie Andrade LPN HEMOGLOBIN A1C < 7.0 Result Component Type 2 diabetes mellitus ([facility]) 7.7(12/30/19 20 12:18 EST) No Maggie Andrade LPN documented as of this encounter Visit Diagnoses Not on filedocumented in this encounter Additional Health Concerns Infection Onset Date Last Indicated Resolved Time COVID-19 03/22/2022 03/22/2022 04/11/2022 22:1 5 EDT documented as of this encounter
--- OUTSIDE RECORDS SUMMARY | 2025-01-06 15:39 | XMS_ITS | Encounter Summary ---
Author Organization [facility] Address [address] [place] [address] Care Team Providers Care Agricultural Produce Commission Agent Name Role Phone Roxanna Hannah MD Primary Care Provider + Reason for Visit * Reason Onset Date Comments Medication Questions 03/01/2011 Encounter Details Date Type Department Care Team (Late st Contact Info) Description 03/01/2011 Telephone [facility] Medicine [address] [phone] Roxanna Hannah MD [address] [place] [phone] Medication Questions Social History Tobacco Use [...] Encounter - Roxanna Hannah MD - 03/06/2011 134 EDT Would be best to wean down [...] filedocumented in this encounter Care Teams Agricultural Produce Commission Agent Relationship Specialty Start Date End Date Roxanna Hannah MD [address] [place] [phone] PCP - General 03/28/09 05/31/20 documented as of this encounter
--- OUTSIDE RECORDS SUMMARY | 2025-01-06 15:39 | XMS_ITS | Encounter Summary ---
Author Organization [facility] Address [address] [place] [address] Care Team Providers Care Hook And Eye Sewing Machine Operator Name Role Phone Roxanna Hannah MD Primary Care Provider + Reason for Visit * Reason Onset Date Comments Back Pain 07/19/2010 Encounter Details Date Type Department Care Team (Late st Contact Info) Description 07/19/2010 Telephone [facility] Family Medicine [address] [address] Roxanna Hannah MD [address] [place] [address] [phone] Back Pain Social History Tobacco Use Types [...] Encounter - Maggie Andrade LPN - 07/19/2010 7359 EDT Patient was called and was told [...] EDT Has not had xray taken at [facility] yet;felt tingling into right arm right into [...] his back pain. He uses [facility] in [place]. documented in this encounter Plan of Treatment Not on file documented as of this encounter Visit Diagnoses Not on filedocumented in this encounter Care Teams Hook And Eye Sewing Machine Operator Relationship Specialty Start Date End Date Roxanna Hannah MD [address] [place] [phone] PCP - General 03/28/09 05/31/20 documented as of this encounter
--- OUTSIDE RECORDS SUMMARY | 2025-01-06 15:39 | XMS_ITS | Encounter Summary ---
Author Organization [facility] Address [address] [place] [address] Care Team Providers Care Course Developer Name Role Phone Yanira Romero MD Primary Care Provider + Encounter Details Date Type Department Care Team (Late st Contact Info) Description 09/12/2011 Results Only [facility] Gastroenterology - [facility] [address] [place], [place] [address] Lorelei Rosa MD [address] [facility], [address] [place] [phone] Social History Tobacco Use Types [...] ? MARIO CURRY ? Accession #: ? [id number] ? : ? 1955 (Age: 56) ??M [...] PATHOLOGY ORDERABLES Final Result [facility] [address] [place] [address] documented in this encounter Visit Diagnoses Not on filedocumented in this encounter Care Teams Course Developer Relationship Specialty Start Date End Date Yanira Romero MD [address] [place] [phone] PCP - General 03/28/09 05/31/20 documented as of this encounter
--- OUTSIDE RECORDS SUMMARY | 2025-01-06 15:39 | XMS_ITS | Encounter Summary ---
Author Organization [facility] Address [address] [place] [address] Care Team Providers Care Lye Treater Name Role Phone Roxanna Hannah MD Primary Care Provider + Reason for Visit * Reason Onset Date Comments Medication Reaction 11/28/2011 Encounter Details Date Type Department Care Team (Late st Contact Info) Description 11/28/[address] [phone] Roxanna Hannah MD [address] [place] [phone] Medication Reaction Social History Tobacco Use [...] on filedocumented in this encounter Care Teams Lye Treater Relationship Specialty Start Date End Date Roxanna Hannah MD [address] [place] [phone] PCP - General 03/28/09 05/31/20 documented as of this encounter
--- OUTSIDE RECORDS SUMMARY | 2025-01-06 15:39 | XMS_ITS | Encounter Summary ---
Author Organization [facility] Address [address] [place] [address] Care Team Providers Care Cloth Bin Packer Name Role Phone Roxanna Hannah MD Primary Care Provider + Encounter Details Date Type Department Care Team (Late st Contact Info) Description 08/25/2009 Abstract [facility] Family Medicine [address] [address] Roxanna Hannah MD [address] [place] [phone] Routine General Medical Examination at Health Care Facility; Seizure Disorder ([facility]); GERD (Gastroesophageal Reflux Disease); Essential Hypertension; Hyperlipidemia; [...] at a health care facility Seizure disorder ([facility]) Unspecified epilepsy without mention of intractable [...] mouth 2 times daily. 01/16/2011 11/07/2012 GLUCOSAMINE [id number] T ORAL Take 1 Tab by mouth daily. Pt varies dosing 11/07/2012 ibuprofen (MOTRIN) 200 mg tablet Take 400-800 mg by mouth every 6 hours as needed. 01/16/2011 07/23/2012 omeprazole (PRILOSEC) 20 mg capsule Take 20 mg by mouth daily. 01/24/2010 divalproex (DEPAKOTE) 500 mg EC tablet Take 500 mg by mouth daily. 3 tabs 07/12/2010 added in this encounter Care Teams Cloth Bin Packer Relationship Specialty Start Date End Date Roxanna Hannah MD [address] [place] [phone] PCP - General 03/28/09 05/31/20 documented as of this encounter
--- OUTSIDE RECORDS SUMMARY | 2025-01-06 15:39 | XMS_ITS | Encounter Summary ---
Author Organization [facility] Address [address] [place] [address] Care Team Providers Care Victims Advocate Clerk/Specialist Name Role Phone Roxanna Hannah MD Primary Care Provider + Encounter Details Date Type Department Care Team (Late st Contact Info) Description 08/02/2010 Results Only [facility] Urology - [facility] [address] [place], [place] [address] Kye Brown, DO [address] [facility], [address] [place] [phone] Social History Tobacco Use Types [...] ORDER TSERING Final Result Performing Organization Address [facility] Co de Phone Number [facility] [address] [place] [address] * PSA (08/02/2010 15:06 EDT) Pathologist [facility] PSA 0.6 0 - 3.5 ng/ml [facility] Comment: ??Serum PSA concentration should not be interpreted as absolute evidence for the presence or absence of malignant disease. ?? Assayed utilizing [employer] chemiluminescent technology. Values obtained by using different assay methods cannot be used interchangeably. Blood specimen (specimen) 08/02/2010 15:06 EDT 08/02/2010 15:20 EDT Kye Patton Perelana DO CHEMISTRY & BLOOD GAS ORDER TSERING Final Result Performing Organization Address City/[facility] Co de Phone Number [facility] [address] [place] [address] documented in this encounter Visit Diagnoses Not on filedocumented in this encounter Care Teams Victims Advocate Clerk/Specialist Relationship Specialty Start Date End Date Roxanna Hannah MD [address] [place] [phone] PCP - General 03/28/09 05/31/20 documented as of this encounter
--- OUTSIDE RECORDS SUMMARY | 2025-01-06 15:39 | XMS_ITS | Encounter Summary ---
Author Organization [facility] Address [address] [place] [address] Care Team Providers Care C2 Tactical Analysis Technician Name Role Phone Roxanna Hannah MD Primary Care Provider + Reason for Visit * Reason Onset Date Comments Medication Problem 07/14/2010 Encounter Details Date Type Department Care Team (Late st Contact Info) Description 07/14/2010 Refill [facility] Family Medicine [address] [address] Alis Cardona, screen printing cloth spreader Problem Social History Tobacco Use Types Packs/Day [...] 1517 EDT Spoke with Pharmacist, Nancy, from [employer]. Pt has been on Brand Name Depakote ER since 08/2008 and last Rx was for Brand Name Depakote EC which is a different release formula. Pharmacy requesting clarification of which to send to pt. Ref # [id number]. Pharmacist gayathri DANIELLE out of office until [...] documented as of this encounter Care Teams C2 Tactical Analysis Technician Relationship Specialty Start Date End Date Roxanna Hannah MD [address] [place] [phone] PCP - General 03/28/09 05/31/20 documented as of this encounter
--- OUTSIDE RECORDS SUMMARY | 2025-01-06 15:39 | XMS_ITS | Encounter Summary ---
Author Organization [facility] Address [address] [place] [address] Care Team Providers Care Market Research Consultant Name Role Phone Roxanna Hannah MD Primary Care Provider + Reason for Visit * Reason Onset Date Comments Other 12/14/2010 Encounter Details Date Type Department Care Team (Late st Contact Info) Description 12/14/2010 Telephone [facility] Gastroenterology - [address] [phone] Mitch Ash MD [address] [facility], [address] [place] [phone] Other Social History Tobacco Use [...] filedocumented in this encounter Care Teams Market Research Consultant Relationship Specialty Start Date End Date Roxanna Hannah MD [address] [place] [phone] PCP - General 03/28/09 05/31/20 documented as of this encounter
--- OUTSIDE RECORDS SUMMARY | 2025-01-06 15:39 | XMS_ITS | Encounter Summary ---
Author Organization [facility] Address [address] [place] [address] Care Team Providers Care Internal Salesperson Name Role Phone Roxanna Hannah MD Primary Care Provider + Reason for Visit * Reason Comments Hypertension patient in today for fasting bloodwork per order of Dr Roxanna Hannah Hyperlipidemia Seizures Encounter Details Date Type Department Care Team (Late st Contact Info) Description 07/26/2011 9:15 EDT Nurse Only [facility] - [address] [address] Unknown, Provider, Roxanna Braswell MD [address] [place] [phone] Nurse, [facility] Ronnie White, RN Essential hypertension; Seizure disorder [...] DERABLES Final Result [facility] [address] [place] [address] * (ABNORMAL) HEMAGRAM (07/26/2011 9:19 EDT) WBC [...] LES Final Result [facility] [address] [place] [address] * (ABNORMAL) COMPREHENSIVE METABOLIC PANEL (CMP) (07/26/2011 [...] OR DERABLES Final Result Performing Organization Address [facility] de Phone Number [facility] [address] [place] [address] * LIPID PROFILE (INCLUDES CHOLESTEROL, TRIGLYCERIDES, HDL, LDL) (07/26/2011 9:19 EDT) Cholesterol 141 mg/dl [facility] Comment:Desirable:<200 Borde rline High:200-239 High:>yg=617 Triglycerides 133 35 - 160 mg/dl [facility] HDL 30 mg/dl [facility] Comment:Low:<40 High(Desirab le):>or=60 LDL, Calculated 84 mg/dl [facility] Comment: Optimal:<100 Above optimal:100-129 Borderline High:130-159 High:160-189 Very High:>bu=343 Chol/HDL Ratio 4.7 [facility] Fasting? Unknown [facility] Blood specimen (specimen) 07/26/2011 9:19 EDT 07/26/2011 18:45 EDT Roxanna Hannah MD CHEMISTRY & BLOOD GAS OR DERABLES Final Result Performing Organization Address [facility] de Phone Number [facility] [address] [place] [address] documented in this encounter Visit Diagnoses Diagnosis Essential hypertension Unspecified essential hypertension Seizure disorder (HCC-CMS) Unspecified epilepsy without mention of intractable epilepsy Hyperlipidemia Other and unspecified hyperlipidemia documented in this encounter Care Teams Internal Salesperson Relationship Specialty Start Date End Date Roxanna Hannah MD [address] [place] [phone] PCP - General 03/28/09 05/31/20 documented as of this encounter
--- OUTSIDE RECORDS SUMMARY | 2025-01-06 15:39 | XMS_ITS | Encounter Summary ---
Author Organization [facility] Address [address] [place] [address] Care Team Providers Care Highway Patrol Pilot Name Role Phone Roxanna Hannah MD Primary Care Provider + Reason for Visit * Reason Onset Date Comments Medications Refill 01/24/2010 [facility] faxed f orms Encounter Details Date Type Department Care Team (Late st Contact Info) Description 01/24/2010 Refill [facility] Family Medicine [address] [address] Roxanna Hannah MD [address] [place] [phone] Medications Refill ([facility] faxed forms) Social History [...] Telephone Encounter - Joi Hidalgo - 01/24/2010 9107 EST Last appt 01/16/10, next visit 03/13/10, [...] documented as of this encounter Care Teams Highway Patrol Pilot Relationship Specialty Start Date End Date Roxanna Hannah MD [address] [place] [address] [phone] PCP - General 03/28/09 05/31/20 documented as of this encounter
--- OUTSIDE RECORDS SUMMARY | 2025-01-06 15:39 | XMS_ITS | Encounter Summary ---
Author Organization [facility] Address [address] [place] [address] Care Team Providers Care Proof Carrier Name Role Phone Roxanna Hannah MD Primary Care Provider + Encounter Details Date Type Department Care Team (Late st Contact Info) Description 01/31/2010 Abstract Used for ABSTRACTING Data [phone] Roxanna Hannah MD [address] [place] [phone] Social History Tobacco Use Types Packs/Day Years [...] on filedocumented in this encounter Care Teams Proof Carrier Relationship Specialty Start Date End Date Roxanna Hannah MD [address] [place] [address] [phone] PCP - General 03/28/09 05/31/20 documented as of this encounter
--- OUTSIDE RECORDS SUMMARY | 2025-01-06 15:39 | XMS_ITS | Encounter Summary ---
Author Organization [facility] Address [address] [place] [address] Care Team Providers Care Back Pad Inspector Name Role Phone Roxanna Hannah MD Primary Care Provider + Reason for Referral * (Routine) - Closed Specialty Diagnoses / Procedures Referred By Nela bravo Referred To Contact Diagnoses Backache Procedures THORACIC SPINE 2-3 VIEWS Roxanna Hannah MD Phone: tel: fax: Referral ID Status Reason Start Date Expiration Date Visits Re quested Visits Authorized [id number] Closed 07/12/2010 1 1 * Consult (Routine) - Closed Specialty Diagnoses / Procedures Referred By Nela bravo Referred To Contact Urology Diagnoses Erectile dysfunction Hematospermia Roxanna Hannah MD Phone: tel: fax: Referral ID Status Reason Start Date Expiration Date V isits Requested Visits Authorized [id number] Closed Specialty Services Required 07/12/2010 1 1 Question Answer Reason for Request: Int hematospermia, erectile dysfxn and low testtosterone Comments (missed appt last winter due to father's ) Reason for Visit * Reason Comments Medication Problem review Back Pain Encounter Details Date Type Department Care Team (Late st Contact Info) Description 07/12/2010 9:15 EDT Office Visit [address] [address] Roxanna Hannah MD [address] [place] [phone] Abnormal glucose tolerance test; Hyperlipidemia; Essential [...] - check T-spine XR (will go to [facility]) HTN - at goal, con't current plan [...] DIFFERENTIAL Routine 07/12/2010 9:32 EDT Seizure disorder ([facility]) VALPROIC ACID LEVEL Routine 07/12/2010 9 :32 [...] ORD ERABLES Final Result Performing Organization Address [facility] de Phone Number [facility] [address] [place] [address] * VALPROIC ACID LEVEL (07/12/2010 9:32 EDT) Pathologist [facility] Valproic Acid 78.9 50.0 - 100.0 ug/ml [facility] Blood specimen (specimen) 07/12/2010 9:32 EDT 07/12/2010 17:27 EDT Roxanna Hannah MD CHEMISTRY & BLOOD GAS OR DERABLES Final Result Performing Organization Address [facility] de Phone Number [facility] [address] [place] [address] * THYROID CASCADE (07/12/2010 9:32 EDT) [facility] TSH 1.97 0.35 - 5.00 uIU/ml [facility] Comment: ??TSH cascade is not recommended for patients in which pituitary or hypothalamic disorders are suspected. Blood specimen (specimen) 07/12/2010 9:32 EDT 07/12/2010 17:27 EDT Roxanna Hannah MD CHEMISTRY & BLOOD GAS OR DERABLES Final Result Performing Organization Address [facility] de Phone Number [facility] [address] [place] [address] * LIPID PROFILE (INCLUDES CHOLESTEROL, TRIGLYCERIDES, HDL, LDL) (07/12/2010 9:32 EDT) Pathologist [facility] Cholesterol 130 mg/dl [facility] Comment:Desirable:<200 Borde rline High:200-239 High:>to=446 Triglycerides 105 35 - 160 mg/dl [facility] HDL 31 mg/dl [facility] Comment:Low:<40 High(Desirab le):>or=60 LDL, Calculated 78 mg/dl [facility] Comment: Optimal:<100 Above optimal:100-129 Borderline High:130-159 High:160-189 Very High:>xz=603 Chol/HDL Ratio 4.2 [facility] Fasting? Yes [facility] Blood specimen (specimen) 07/12/2010 9:32 EDT 07/12/2010 17:27 EDT us Roxanna Hannah MD CHEMISTRY & BLOOD GAS OR DERABLES Final Result [facility] [address] [place] [address] * COMPREHENSIVE METABOLIC PANEL (07/12/2010 9:32 EDT) [...] DERABLES Final Result [facility] [address] [place] [address] documented in this encounter Visit Diagnoses Diagnosis [...] as of this encounter Care Teams Back Pad Inspector Relationship Specialty Start Date End Date Roxanna Hannah MD [address] [place] [phone] PCP - General 03/28/09 05/31/20 documented as of this encounter
--- OUTSIDE RECORDS SUMMARY | 2025-01-06 15:39 | XMS_ITS | Encounter Summary ---
Author Organization [facility] Address [address] [place] [address] Care Team Providers Care Brick Shader Name Role Phone Roxanna Hannah MD Primary Care Provider + Reason for Visit * Reason Comments Anxiety here to follow up on starting new medication, zoloft. Encounter Details Date Type Department Care Team (Late st Contact Info) Description 11/20/2011 16:00 EST Office Visit [address] [phone] Unknown, Provider, Suzanne Aguilar MD [address] [place] [phone] Depression; Anxiety Social History Tobacco Use [...] Progress Notes * Suzanne Schwarz MD - 11/20/2011 1622 EST Progress Note Chief [...] every 6 hours as needed. ??? GLUCOSAMINE [id number] ORAL Take 1 Tab by mouth daily. [...] None Outcomes: Verbalized understanding Suzanne Schwarz MD Strong Nitric Operator PGY3 Attestation statement: I discussed the patient [...] documented as of this encounter Care Teams Brick Shader Relationship Specialty Start Date End Date Roxanna Hannah MD [address] [place] [phone] PCP - General 03/28/09 05/31/20 documented as of this encounter
--- OUTSIDE RECORDS SUMMARY | 2025-01-06 15:39 | XMS_ITS | Encounter Summary ---
Author Organization [facility] Address [address] [place] [address] Care Team Providers Care Boiling House Oiler Name Role Phone Roxanna Hannah MD Primary Care Provider + Reason for Referral * Consult, Test and Treat (Routine) - Closed Specialty Diagnoses / Procedures Referred By Nela bravo Referred To Contact Diagnoses Shoulder pain Roxanna Hannah MD Phone: tel: fax: Referral ID Status Reason Start Date Expiration Date V isits Requested Visits Authorized [id number] Closed Specialty Services Required 07/11/2011 1 1 Question Answer Reason for Request: left shoulder pain, decreased ROM, s/p surgery for multiple dislocations years ago Comments Modalities [facility] in [place] Reason for Visit * Reason Comments Medication Management Pt is here to foll ow up on his htn Encounter Details Date Type Department Care Team (Late st Contact Info) Description 07/11/2011 12:15 EDT Office Visit [facility] - [address] [phone] Roxanna Hannah MD [address] [place] [phone] Seizure disorder (CMS-HCC); Essential hypertension; GERD (gastroesophageal reflux disease); Hyperlipidemia; Shoulder pain; Need for wemovocags-vqtfkwy-c ertussis (Tdap) vaccine; Colon cancer (CMS-HCC) (HCC-CMS) [...] procedure scheduled. Questions: [facility] GI Dept.: [phone] or GI Doctor's Office. 4 L 0 [...] There is no history of kidney disease, CAD/[place], heart failure or a thyroid problem. There [...] Code ??? Routine General Medical Examination at [facility] V70.0A ??? Seizure Disorder 345.90DQ [...] 08/05/2002 ??? [facility] 08[facility]05[facility]2002 ??? GERD (gastroesophageal reflux disease) 08/05/2002 Current outpatient prescriptions ordered prior to encounter Medication Sig Dispense Refill ??? aspirin 81 mg EC tablet Take 81 mg by mouth daily. ??? MULTIVITAMINS (MULTI-VITAMIN ORAL) Take 1 Tab by mouth daily. ??? ibuprofen (MOTRIN) 200 mg tablet Take 400-800 mg by mouth every 6 hours as needed. ??? GLUCOSAMINE [id number] ORAL Take 1 Tab by mouth daily. [...] - Ambulatory Consult Physical Therapy Need for pwnazmfydm-tpatiyr-rmqvicynw (tdap) vaccine - Tdap vaccine greater than [...] procedure scheduled. Questions: [facility] GI Dept.: [phone] or GI Doctor's Office. * Ina Wan LPN - 07/11/2011 1305 EDT Patient Education Topic: Tdap, IM Left Deltoid, without incident Method: Handout Taught to: Patient Barriers: None Outcomes: verbalized understanding Signature: documented in this encounter Plan of Treatment Scheduled Orders Name Type Priority Associated Diagnoses Orde r Schedule COLONOSCOPY GI Routine Colon cancer (CMS-HCC) (HCC-[facility]) Ordered: 07/11/2011 Scheduled Referrals Name Type [...] DERABLES Final Result [facility] [address] [place] [address] * (ABNORMAL) HEMAGRAM (07/26/2011 9:19 EDT) WBC [...] LAB PLT 178 141 - 320 K/cmm [facility] RDW-CV 14.5(H) 11.8 - 14.1 % [facility] Blood specimen (specimen) 07/26/2011 9:19 EDT 07/26/2011 18:45 EDT us Roxanna Hannah MD HEMATOLOGY & PF4 ORDERAB LES Final Result [facility] [address] [place] [address] * (ABNORMAL) COMPREHENSIVE METABOLIC PANEL (CMP) (07/26/2011 9:19 EDT) Potassium 4.5 3.5 - 5.0 mEq/L [facility] Sodium 142 136 - 145 mEq/L [facility] Chloride 103 96 - 110 mEq/L [facility] CO2 29 24 - 32 mEq/L [facility] Total Alkaline Phosphatase 58 38 - 126 U/L [facility] Bilirubin, Total 0.7 0.2 - 1.3 [...] DERABLES Final Result [facility] [address] [place] [address] * LIPID PROFILE (INCLUDES CHOLESTEROL, TRIGLYCERIDES, HDL, LDL) (07/26/2011 9:19 EDT) Cholesterol 141 mg/dl [facility] Comment:Desirable:<200 Borde rline High:200-239 High:>su=926 Triglycerides 133 35 - 160 mg/dl [facility] HDL 30 mg/dl [facility] Comment:Low:<40 High(Desirab le):>or=60 LDL, Calculated 84 mg/dl [facility] Comment: Optimal:<100 Above optimal:100-129 Borderline High:130-159 High:160-189 Very High:>wk=033 Chol/HDL Ratio 4.7 [facility] Fasting? Unknown [facility] Blood specimen (specimen) 07/26/2011 9:19 EDT 07/26/2011 18:45 EDT us Roxanna Hannah MD CHEMISTRY & BLOOD GAS OR DERABLES Final Result Performing Organization Address City/State/[facility] Co de Phone Number [facility] [address] [place] [address] documented in this encounter Visit Diagnoses Diagnosis Seizure disorder (HCC-CMS) Unspecified epilepsy without mention of intractable epilepsy Essential hypertension Unspecified essential hypertension GERD (gastroesophageal reflux disease) Esophageal reflux Hyperlipidemia Other and unspecified hyperlipidemia Shoulder pain Pain in joint, shoulder region Need for sbdweqszem-xoasnna-qkwoimrgm (Tdap) vaccine Need for prophylactic vaccination with combined ypttisomck-beinhtk-jtavnjgfh (DTP) vaccine Colon cancer (HCC-CMS) Malignant neoplasm [...] 07/11/2011 documented in this encounter Care Teams Boiling House Oiler Relationship Specialty Start Date End Date Roxanna Hannah MD [address] [place] [phone] PCP - General 03/28/09 05/31/20 documented as of this encounter
--- OUTSIDE RECORDS SUMMARY | 2025-01-06 15:39 | XMS_ITS | Encounter Summary ---
Author Organization [facility] Address [address] [place] [address] Care Team Providers Care Patient Safety Manager Name Role Phone Roxanna Hannah MD Primary Care Provider + Reason for Visit * Reason Onset Date Comments Back Pain 02/05/2011 Encounter Details Date Type Department Care Team (Late st Contact Info) Description 02/05/[address] [phone] Roxanna Hannah MD [address] [place] [phone] Back Pain Social History Tobacco Use Types [...] on filedocumented in this encounter Care Teams Patient Safety Manager Relationship Specialty Start Date End Date Roxanna Hannah MD [address] [place] [phone] PCP - General 03/28/09 05/31/20 documented as of this encounter
--- OUTSIDE RECORDS SUMMARY | 2025-01-06 15:39 | XMS_ITS | Encounter Summary ---
Author Organization [facility] Address [address] [place] [address] Care Team Providers Care Insurance Underwriter Name Role Phone Roxanna Hannah MD Primary Care Provider + Reason for Visit * Reason Onset Date Comments Back Pain 02/08/2011 Encounter Details Date Type Department Care Team (Late st Contact Info) Description 02/08/2011 Telephone [facility] Family Medicine - [address] [phone] Roxanna Hannah MD [address] [place] [phone] Back Pain Social History Tobacco Use [...] Miscellaneous Notes * Telephone Encounter - Jasmin Lion RN - 02/08/2011 104 EDT Mario called I have Pain that [...] on filedocumented in this encounter Care Teams Insurance Underwriter Relationship Specialty Start Date End Date Roxanna Hannah MD [address] [place] [phone] PCP - General 03/28/09 05/31/20 documented as of this encounter
--- OUTSIDE RECORDS SUMMARY | 2025-01-06 15:39 | XMS_ITS | Encounter Summary ---
Author Organization [facility] Address [address] [place] [address] Care Team Providers Care Accident Examiner Name Role Phone Roxanna Hannah MD Primary Care Provider + Encounter Details Date Type Department Care Team (Late st Contact Info) Description 09/02/2009 Abstract [facility] Family Medicine [address] [address] Roxanna Hannah MD [address] [place] [phone] Social History Tobacco Use Types Packs/Day Years [...] on filedocumented in this encounter Care Teams Accident Examiner Relationship Specialty Start Date End Date Roxanna Hannah MD [address] [place] [phone] PCP - General 03/28/09 05/31/20 documented as of this encounter
--- OUTSIDE RECORDS SUMMARY | 2025-01-06 15:39 | XMS_ITS | Encounter Summary ---
Author Organization [facility] Address [address] [place] [address] Care Team Providers Care Software Development Test Engineer Name Role Phone Roxanna Hannah MD Primary Care Provider + Encounter Details Date Type Department Care Team (Late st Contact Info) Description 09/12/2011 - 09/12/2011 9:35 EDT Hospital Encounter [facility] Endoscopy Outpatient [address] [place] [address] José Miguel Rosa MD [address] [facility] [address] [place] [phone] Discharge Disposition: Home or Self [...] name 270 Tab 3 07/11/2011 2 GLUCOSAMINE [id number] IT ORAL Take 1 Tab by mouth [...] procedure scheduled. Questions: [facility] GI Dept.: [phone] or GI Doctor's Office. 4 L 0 [...] & Physical Date: 09/12/2011 Time: 8:18 Location: [address] Planned Procedure: Colonoscopy Chief Complaint/Indications for [...] documented in this encounter Procedure Notes * Backbreaker, Wilbert - 09/13/2011 0800 EDTAssociated Order(s): PROCEDURE REPORTS - SCANNED documented in this encounter Miscellaneous Notes * Scanned Note-Null - Backbreaker, Scan - 09/13/2011 1318 EDT * Scanned Note-Null - Backbreaker, Scan - 09/13/2011 1232 EDT documented in [...] 8:00 EDT) 09/13/2011 8:00 EDT Narrative Transcriptions Backbreaker, Scan - 09/13/2011 8:00 EDT us Scan Backbreaker PROCEDURE/MINOR SURGICAL ORDE RABLES Final Result documented [...] 09/12/2011 documented in this encounter Care Teams Software Development Test Engineer Relationship Specialty Start Date End Date Roxanna Hannah MD [address] [place] [phone] PCP - General 03/28/09 05/31/20 documented as of this encounter
--- OUTSIDE RECORDS SUMMARY | 2025-01-06 15:39 | XMS_ITS | Encounter Summary ---
Author Organization [facility] Address [address] [place] [address] Care Team Providers Care Four Slide Machine Operator Name Role Phone Roxanna Hannah MD Primary Care Provider + Reason for Visit * Reason Comments Anxiety follow up on medicat ion. Stopped Zoloft on own due to dizziness, tremors. Hypertension dizziness. conc erned over blood pressure Encounter Details Date Type Department Care Team (Late st Contact Info) Description 12/12/2011 10:45 EST Office Visit [address] [phone] Roxanna Hannah MD [address] [place] [address] [phone] Anxiety (Primary Dx); Essential hypertension; IGT (impaired [...] There is no history of kidney disease, CAD/[place], heart failure or a thyroid problem. There [...] every 6 hours as needed. ??? GLUCOSAMINE [id number] ORAL Take 1 Tab by mouth daily. [...] DERABLES Final Result [facility] [address] [place] [address] documented in this encounter Visit Diagnoses Diagnosis [...] documented as of this encounter Care Teams Four Slide Machine Operator Relationship Specialty Start Date End Date Roxanna Hannah MD [address] [place] [phone] PCP - General 03/28/09 05/31/20 documented as of this encounter
--- OUTSIDE RECORDS SUMMARY | 2025-01-06 15:39 | XMS_ITS | Encounter Summary ---
Author Organization [facility] Address [address] [place] [address] Care Team Providers Care City Jailer Name Role Phone Roxanna Hannah MD Primary Care Provider + Reason for Visit * Reason Comments Back Pain Encounter Details Date Type Department Care Team (Late st Contact Info) Description 02/13/2011 12:30 EDT Office Visit [address] [phone] Roxanna Hannah MD [address] [place] [address] [phone] Back pain (Primary Dx) Social History Tobacco [...] alleviate symptoms. Thoracic spine XR 08/04 from [facility] showed mild compression at T4 and T11 [...] documented as of this encounter Care Teams City Jailer Relationship Specialty Start Date End Date Roxanna Hannah MD [address] [place] [phone] PCP - General 03/28/09 05/31/20 documented as of this encounter
--- OUTSIDE RECORDS SUMMARY | 2025-01-06 15:39 | XMS_ITS | Encounter Summary ---
Author Organization [facility] Address [address] [place] [address] Care Team Providers Care Military Exchange Wireless Manager Name Role Phone Roxanna Hannah MD Primary Care Provider + Reason for Visit * Reason Onset Date Comments Medication Problem 07/14/2010 Encounter Details Date Type Department Care Team (Late st Contact Info) Description 07/14/2010 Refill [facility] Family Medicine - [address] [address] Roxanna Hannah MD [address] [place] [address] [phone] Medication Problem Social History Tobacco Use Types [...] Telephone Encounter - Alis Cardona - 07/14/2010 1419 EDT Spoke with Nancy, pharmacist for [facility], in regards to clarification of Divalproex. They were questioning is the medication was regular or extended release. Advised pt had medication reorder from [facility] and therefore it needed to be the same and previously Rx'd. * Telephone Encounter - Tootie Raye - 07/14/2010 1342 EDT [facility] would like to know if the Divalproex is extended release. Please call using Ref # [id number] documented in this encounter Plan of Treatment Not on file documented as of this encounter Visit Diagnoses Not on filedocumented in this encounter Care Teams Military Exchange Wireless Manager Relationship Specialty Start Date End Date Roxanna Hannah MD [address] [place] [phone] PCP - General 03/28/09 05/31/20 documented as of this encounter
--- OUTSIDE RECORDS SUMMARY | 2025-01-06 15:39 | XMS_ITS | Encounter Summary ---
Author Organization [facility] Address [address] [place] [address] Care Team Providers Care Invisible Braces Orthodontist Name Role Phone Roxanna Hannah MD Primary Care Provider + Reason for Referral * (Routine) - Closed Specialty Diagnoses / Procedures Referred By Contac t Referred To Contact Diagnoses Shoulder pain Procedures SHOULDER 2 OR MORE VIEWS Roxanna Hannah MD Phone: tel: fax: Referral ID Status Reason Start Date Expiration Date Visits Re quested Visits Authorized [id number] Closed 10/03/2011 1 1 Reason for Visit * Reason Comments Shoulder Pain left shoulder pain;s tated he felt P.T. was not helping Encounter Details Date Type Department Care Team (Late st Contact Info) Description 10/03/2011 12:30 EST Office Visit [facility] Family Medicine [address] [phone] Roxanna Hannah MD [address] [place] [phone] Shoulder pain (Primary Dx); Impaired glucose tolerance [...] and surgical repair with Dr. Salazar in [facility] > 10 yrs ago Has been going [...] procedure scheduled. Questions: [facility] GI Dept.: [phone] or GI Doctor's Office. Therapy completed 07/11/2011 10/03/2011 documented as of this encounter Care Teams Invisible Braces Orthodontist Relationship Specialty Start Date End Date Roxanna Hannah MD [address] [place] [phone] PCP - General 03/28/09 05/31/20 documented as of this encounter
--- OUTSIDE RECORDS SUMMARY | 2025-01-06 15:39 | XMS_ITS | Encounter Summary ---
Author Organization [facility] Address [address] [place] [address] Care Team Providers Care Plater Apprentice Name Role Phone Roxanna Hannah MD Primary Care Provider + Encounter Details Date Type Department Care Team (Late st Contact Info) Description 09/21/[address] [facility] Urology - [facility] [address] [place] [address] Kye Brown, DO [address] [facility], [address] [place] [phone] Scrotal varices; Unspecified hydrocele; Hematospermia [...] Hematospermia documented in this encounter Care Teams Plater Apprentice Relationship Specialty Start Date End Date Roxanna Hannah MD [address] [place] [phone] PCP - General 5/4/09 7/7/20 documented as of this encounter
--- OUTSIDE RECORDS SUMMARY | 2025-01-06 15:39 | XMS_ITS | Encounter Summary ---
Author Organization [facility] Address [address] [place] [address] Care Team Providers Care Manager Competitive Intelligence Name Role Phone Roxanna Hannah MD Primary Care Provider + Encounter Details Date Type Department Care Team (Late st Contact Info) Description 08/25/2009 Abstract [facility] Family Medicine [address] [address] Roxanna Hannah MD [address] [place] [phone] Social History Tobacco Use Types Packs/Day Years [...] filedocumented in this encounter Care Teams Manager Competitive Intelligence Relationship Specialty Start Date End Date Roxanna Hannah MD [address] [place] [address] [phone] PCP - General 03/28/09 05/31/20 documented as of this encounter
--- OUTSIDE RECORDS SUMMARY | 2025-01-06 15:39 | XMS_ITS | Encounter Summary ---
Author Organization [facility] Address [address] [place] [address] Care Team Providers Care Wearing Apparel Assembler Name Role Phone Roxanna Hannah MD Primary Care Provider + Encounter Details Date Type Department Care Team (Late st Contact Info) Description 08/03/2010 Abstract Used for ABSTRACTING Data [phone] Roxanna Hannah MD [address] [place] [phone] Social History Tobacco Use Types Packs/Day Years [...] on filedocumented in this encounter Care Teams Wearing Apparel Assembler Relationship Specialty Start Date End Date Roxanna Hannah MD [address] [place] [address] [phone] PCP - General 03/28/09 05/31/20 documented as of this encounter
--- OUTSIDE RECORDS SUMMARY | 2025-01-06 15:39 | XMS_ITS | Encounter Summary ---
Author Organization [facility] Address [address] [place] [address] Care Team Providers Care Land Surveying Party Chief Name Role Phone Roxanna Hannah MD Primary Care Provider + Reason for Visit * Reason Onset Date Comments Medication Problem 02/23/2011 Encounter Details Date Type Department Care Team (Late st Contact Info) Description 02/23/[address] [facility] Family Medicine - [address] [phone] Roxanna Hannah MD [address] [place] [address] [phone] Medication Problem Social History Tobacco Use Types [...] Neurontin at pharm. (confirmed with Ruperto at [facility]). Patient was given script for 300mg. Caps. [...] on filedocumented in this encounter Care Teams Land Surveying Party Chief Relationship Specialty Start Date End Date Roxanna Hannah MD [address] [place] [address] [phone] PCP - General 03/28/09 05/31/20 documented as of this encounter
--- OUTSIDE RECORDS SUMMARY | 2025-01-06 15:39 | XMS_ITS | Encounter Summary ---
Author Organization [facility] Address [address] [place] [address] Care Team Providers Care Sales Office Manager Name Role Phone Roxanna Hannah MD Primary Care Provider + Encounter Details Date Type Department Care Team (Late st Contact Info) Description 01/30/2011 Abstract Used for ABSTRACTING Data [phone] Edi Florian MD [address] [phone] Social History Tobacco Use [...] on filedocumented in this encounter Care Teams Sales Office Manager Relationship Specialty Start Date End Date Roxanna Hannah MD [address] [place] [phone] PCP - General 03/28/09 05/31/20 documented as of this encounter
--- OUTSIDE RECORDS SUMMARY | 2025-01-06 15:39 | XMS_ITS | Encounter Summary ---
Author Organization [facility] Address [address] [place] [address] Care Team Providers Care Tax Director Name Role Phone Roxanna Hannah MD Primary Care Provider + Encounter Details Date Type Department Care Team (Late st Contact Info) Description 02/24/2009 Before PRISM Converted Visit (Maple) [facility] Family Medicine [address] [phone] Roxanna Hannah MD [address] [place] [phone] Social History Tobacco Use Types Packs/Day [...] OR DERABLES Final Result Performing Organization Address City/State/[facility] Co de Phone Number [facility] [address] [place] [address] documented in this encounter Visit Diagnoses Not on filedocumented in this encounter Care Teams Tax Director Relationship Specialty Start Date End Date Roxanna Hannah MD [address] [place] [phone] PCP - General 03/28/09 05/31/20 documented as of this encounter
--- OUTSIDE RECORDS SUMMARY | 2025-01-06 15:39 | XMS_ITS | Encounter Summary ---
Author Organization [facility] Address [address] [place] [address] Care Team Providers Care Director Of Plant Operations Name Role Phone Roxanna Hannah MD Primary Care Provider + Reason for Visit * Reason Onset Date Comments Medication Problem 04/02/2011 Encounter Details Date Type Department Care Team (Late st Contact Info) Description 04/02/2011 Refill [facility] Family Medicine [address] [address] Roxanna Hannah MD [address] [place] [phone] Medication Problem Social History Tobacco Use Types [...] he should have a refill left at [facility] but they don't have record of that. He would like a refill at [facility] in [place] as well because he is out. Last [...] as of this encounter Care Teams Director Of Plant Operations Relationship Specialty Start Date End Date Roxanna Hannah MD [address] [place] [phone] PCP - General 03/28/09 05/31/20 documented as of this encounter
--- OUTSIDE RECORDS SUMMARY | 2025-01-06 15:39 | XMS_ITS | Encounter Summary ---
Author Organization [facility] Address [address] [place] [address] Care Team Providers Care Dispatch Clerk Name Role Phone Roxanna Hannah MD Primary Care Provider + Reason for Visit * Reason Onset Date Comments Pharmacy 07/16/2011 Encounter Details Date Type Department Care Team (Late st Contact Info) Description 07/16/[address] [phone] Roxanna Hannah MD [address] [place] [phone] Pharmacy Social History Tobacco Use Types Packs/Day [...] - Isaura Ray - 07/16/2011 1203 EDT [employer] calling, states they faxed over a request to change this patients depakote from brand name to generic. The brand is $600 and the generic is $24. Ref # [id number] documented in this encounter Plan of Treatment Not on file documented as of this encounter Visit Diagnoses Not on filedocumented in this encounter Care Teams Dispatch Clerk Relationship Specialty Start Date End Date Roxanna Hannah MD [address] [place] [phone] PCP - General 03/28/09 05/31/20 documented as of this encounter
--- OUTSIDE RECORDS SUMMARY | 2025-01-06 15:39 | XMS_ITS | Encounter Summary ---
Author Organization [facility] Address [address] [place] [address] Care Team Providers Care Party Plan Sales Unit Sales Leader Name Role Phone Roxanna Hannah MD Primary Care Provider + Encounter Details Date Type Department Care Team (Late st Contact Info) Description 07/18/2011 Abstract [facility] Family Medicine [address] [address] Roxanna Hannah MD [address] [place] [phone] Social History Tobacco Use Types Packs/Day Years [...] on filedocumented in this encounter Care Teams Party Plan Sales Unit Sales Leader Relationship Specialty Start Date End Date Roxanna Hannah MD [address] [place] [phone] PCP - General 03/28/09 05/31/20 documented as of this encounter
--- OUTSIDE RECORDS SUMMARY | 2025-01-06 15:39 | XMS_ITS | Encounter Summary ---
Author Organization [facility] Address [address] [place] [address] Care Team Providers Care Manager Of It Name Role Phone Roxanna Hannah MD Primary Care Provider + Encounter Details Date Type Department Care Team (Late st Contact Info) Description 01/22/2011 Abstract [facility] Family Medicine [address] [address] Roxanna Hannah MD [address] [place] [phone] Social History Tobacco Use Types Packs/Day Years [...] filedocumented in this encounter Care Teams Manager Of It Relationship Specialty Start Date End Date Roxanna Hannah MD [address] [place] [phone] PCP - General 03/28/09 05/31/20 documented as of this encounter
--- OUTSIDE RECORDS SUMMARY | 2025-01-06 15:39 | XMS_ITS | Encounter Summary ---
Author Organization [facility] Address [address] [place] [address] Care Team Providers Care Technicians And Trades Workers Name Role Phone Roxanna Hannah MD Primary [...] Info) Description 01/16/2011 14:30 EST Office Visit [facility] Family Medicine - [address] [phone] Unknown, Provider, MD Perkins, MD Vijay Miller, Jl Reynoso MD [address] [facility] [address] [place] [address] Need for influenza [...] every 6 hours as needed. ??? GLUCOSAMINE [id number] ORAL Take 1 Tab by mouth daily. [...] 01/16/2011 documented in this encounter Care Teams Technicians And Trades Workers Relationship Specialty Start Date End Date Roxanna Hannah MD [address] [place] [phone] PCP - General 03/28/09 05/31/20 documented as of this encounter
--- OUTSIDE RECORDS SUMMARY | 2025-01-06 15:39 | XMS_ITS | Encounter Summary ---
Author Organization [facility] Address [address] [place] [address] Care Team Providers Care Rental Boats Caretaker Name Role Phone Roxanna Hannah MD Primary [...] Info) Description 01/16/2010 13:00 EST Office Visit [facility] Family Medicine [address] [address] Roxanna Hannah MD [address] [place] [phone] Hematospermia; Erectile dysfunction Social History Tobacco Use [...] needed for Pain. 2 tabs ??? GLUCOSAMINE [id number] ORAL Take by mouth daily. 1 tab [...] documented as of this encounter Care Teams Rental Boats Caretaker Relationship Specialty Start Date End Date Roxanna Hannah MD [address] [place] [phone] PCP - General 03/28/09 05/31/20 documented as of this encounter
--- OUTSIDE RECORDS SUMMARY | 2025-01-06 15:39 | XMS_ITS | Encounter Summary ---
Author Organization [facility] Address [address] [place] [address] Care Team Providers Care Clinical Applications Specialist Name Role Phone Roxanna Hannah MD Primary Care Provider + Reason for Visit * Reason Onset Date Comments Colonoscopy 07/31/2011 Encounter Details Date Type Department Care Team (Late st Contact Info) Description 07/31/[address] [facility] Gastroenterology - [address] [phone] José Miguel Rosa MD [address] [facility], Level [address] [place] [phone] Colonoscopy Social History Tobacco Use [...] Telephone Encounter - Heydi Hoffmann - 07/31/2011 0334 EDT PT SCHEDULED WITH DR. ROSA 09/12/2011. documented in this encounter Plan of Treatment Not on file documented as of this encounter Visit Diagnoses Not on filedocumented in this encounter Care Teams Clinical Applications Specialist Relationship Specialty Start Date End Date Roxanna Hannah MD [address] [place] [phone] PCP - General 03/28/09 05/31/20 documented as of this encounter
--- OUTSIDE RECORDS SUMMARY | 2025-01-06 15:39 | XMS_ITS | Encounter Summary ---
Author Organization [facility] Address [address] [place] [address] Care Team Providers Care Fourdrinier Wire Weaver Name Role Phone Unavailable Primary Care Provider Unavailabl e Encounter Details Date Type Department Care Team (Late st Contact Info) Description 03/09/2009 11:53 EDT Hospital Encounter [facility] - Maple conversion [address] [place] [address] Roxanna Hannah MD [address] [place] [phone] Social History Tobacco Use Types Packs/Day Years [...] learn more about your health please visit: https://www.[facility].org/medcenter/Pages/Wellness-Resources/Sgmrktbdx-Nleuuy-Bv sourc e-Center.aspx LDL < 100 Result Component Hyperlipidemia 56( 0 12:18 EST) No Maggie Andrade LPN HEMOGLOBIN A1C < 7.0 Result Component Type 2 diabetes mellitus ([facility]) 7.7(12/30/19 20 12:18 EST) No Maggie Andrade LPN documented as of this encounter Procedures Procedure Name Priority Date/Time Associated Diagnosis Comments URINE [id number] E RATIO (ACR) Routine 08/24/2009 10:09 EDT TESTOSTERONE, TOTAL AND FREE Routine 08/24/2009 10:03 EDT HEMOGLOBIN A1C Routine 08/24/2009 10:03 EDT GLUCOSE, SERUM Routine 08/24/2009 10:03 EDT VALPROIC ACID LEVEL Routine 08/24/2009 1 0:03 EDT HEMOGLOBIN A1C Routine 03/28/2009 9:38 EDT BASIC METABOLIC PANEL (BMP) Routine 03/28/2009 9:38 EDT documented in this encounter Results * MICROALBUMIN (08/24/2009 10:09 EDT) Creatinine, Urn [place] 207.1 mg/dl [facility] Ur Albumin mg/dl 0.4 <1.9 mg/dl [facility] Ur Alb ug/mg Crea 1.9 ug/mg Crea [facility] Comment: Normal: ??<30 ug/mg Creat Microalbuminuria: ??30-300 ug/mg Creat Clinical albuminuria: ??>300 ug/mg Creat Urine specimen (specimen) 08/24/2009 10:09 EDT 08/24/2009 17:35 EDT Roxanna Hannah MD CHEMISTRY & BLOOD GAS OR DERABLES Final Result Performing Organization Address [facility] Co de Phone Number [facility] [address] [place] [address] * VALPROIC ACID (08/24/2009 10:03 EDT) Valproic Acid 94.8 50.0 - 100.0 ug/ml [facility] Blood specimen (specimen) 08/24/2009 10:03 EDT 08/24/2009 17:36 EDT Roxanna Hannah MD CHEMISTRY & BLOOD GAS OR DERABLES Final Result Performing Organization Address [facility] de Phone Number [facility] [address] [place] [address] * (ABNORMAL) TOTAL & FREE TESTOSTERONE (08/24/2009 [...] OR DERABLES Final Result Performing Organization Address [facility] de Phone Number [facility] [address] [place] [address] * HEMOGLOBIN A1C (08/24/2009 10:03 EDT) Hemoglobin A1C 5.8 % [facility] Comment: Reference Range: <6% Normal Range ADA guidelines: The A1c goal for non adults in general is <7% The A1c goal for selected individual patients is as close to normal (<6%) as possible without significant hypoglycemia. Est Avg Glucose 120 mg/dl [facility] Comment: eAG represents the A1c result expressed as average glucose in mg/dl. Blood specimen (specimen) 08/24/2009 10:03 EDT 08/24/2009 17:36 EDT Roxanna Hannah MD CHEMISTRY & BLOOD GAS OR DERABLES Final Result Performing Organization Address [facility] de Phone Number [facility] [address] [place] [address] * GLUCOSE, SERUM (08/24/2009 10:03 EDT) Glucose, Serum 87 70 - 100 mg/dl [facility] Blood specimen (specimen) 08/24/2009 10:03 EDT 08/24/2009 17:36 EDT Roxanna Hannah MD CHEMISTRY & BLOOD GAS OR DERABLES Final Result Performing Organization Address [facility] de Phone Number [facility] [address] [place] [address] * HEMOGLOBIN A1C (03/28/2009 9:38 EDT) Hemoglobin [...] DERABLES Final Result Performing Organization Address [facility] Co de Phone Number [facility] [address] [place] [address] * BASIC METABOLIC PANEL (03/28/2009 9:38 EDT) [...] DERABLES Final Result Performing Organization Address [facility] Co de Phone Number [facility] [address] [place] [address] documented in this encounter Visit Diagnoses Not on filedocumented in this encounter Additional Health Concerns Infection Onset Date Last Indicated Resolved Time COVID-19 03/22/2022 03/22/2022 04/11/2022 22:1 5 EDT documented as of this encounter
--- OUTSIDE RECORDS SUMMARY | 2025-01-06 15:40 | XMS_ITS | Encounter Summary ---
Author Organization [facility] Address [address] [place] [address] Care Team Providers Care Formula Room Worker Name Role Phone Unavailable Primary Care Provider Unavailabl e Encounter Details Date Type Department Care Team (Latest Contact Info) Description 11/28/1999 8:04 EST - 11/28/1999 11:59 EST Hospital Encounter [facility] - Other [address] [place] [address] Jacklyn Cleaning MD [place] [phone] [place] [address] Unknown, Provider, Discharge Disposition: Auto Discharge Social [...] GAS ORDERABLES Final Result Performing Organization Address [facility] de Phone Number [facility] [address] [place] [address] * LIVER FUNCTION TESTS (11/28/1999 14:15 EST) Pathologist [facility] Albumin 4.1 3.0 - 5.5 g/dl [facility] [...] GAS ORDERABLES Final Result Performing Organization Address [facility] Co de Phone Number [facility] [address] [place] [address] documented in this encounter Visit Diagnoses Not on filedocumented in this encounter
--- OUTSIDE RECORDS SUMMARY | 2025-01-06 15:40 | XMS_ITS | Encounter Summary ---
Author Organization [facility] Address [address] [place] [address] Care Team Providers Care Lpn Instructor Name Role Phone Unavailable Primary Care Provider Unavailabl e Encounter Details Date Type Department Care Team (Late st Contact Info) Description 04/10/2006 11:41 EDT Hospital Encounter [place] [address] [place] [address] Minal Herrera, DO [address] [place] [address] Social History Tobacco Use Types Packs/Day Years [...] about your health please visit: https://www.[facility].org/medcenter/Pages/Wellness-Resources/[place]-Ragkds-Au sourc e-Center.aspx LDL < 100 Result Component Hyperlipidemia 56( 0 12:18 EST) No Maggie Andrade LPN HEMOGLOBIN A1C < 7.0 Result Component Type 2 diabetes mellitus ([facility]) 7.7(12/30/19 20 12:18 EST) No Maggie Andrade [...] ORDE RABLES Final Result Performing Organization Address [facility] de Phone Number [facility] [address] [place] [address] * HEMAGRAM (04/10/2006 11:45 EDT) WBC 6.46 [...] 14.1 % [facility] Comment:Performed at [place], [place] 04/10/2006 11:4 5 EDT 04/10/2006 11:47 EDT us A Shane Herrera DO HEMATOLOGY & PF4 ORDERABLE S Final Result Performing Organization Address [facility] de Phone Number [facility] [address] [place] [address] * AST (04/10/2006 11:45 EDT) AST 29 15 - 46 U/L [facility] Comment:Performed at [facility] [place], [place] 04/10/2006 11:4 5 EDT 04/10/2006 11:47 EDT us A Shane Herrera DO CHEMISTRY & BLOOD GAS ORDE RABLES Final Result [facility] [address] [place] [address] * AMYLASE (04/10/2006 11:45 EDT) Amylase 46 30 - 110 U/L [facility] Comment:Performed at [place], [place] 04/10/2006 11:4 5 EDT 04/10/2006 11:47 EDT us A Shane Herrera DO CHEMISTRY & BLOOD GAS ORDE RABLES Final Result Performing Organization Address [facility] Co de Phone Number [facility] [address] [place] [address] * ALT (04/10/2006 11:45 EDT) ALT 39 21 - 72 U/L [facility] Comment:Performed at [place], [place] 04/10/2006 11:4 5 EDT 04/10/2006 11:47 EDT us A Shane Herrera DO CHEMISTRY & BLOOD GAS ORDE RABLES Final Result Performing Organization Address [facility] de Phone Number [facility] [address] [place] [address] * ALKALINE PHOSPHATASE (04/10/2006 11:45 EDT) Total Alkaline Phosphatase 76 38 - 126 U/L [facility] Comment:Performed at [facility] [place] 04/10/2006 11:4 5 EDT 04/10/2006 11:47 EDT us A Shane Herrera DO CHEMISTRY & BLOOD GAS ORDE RABLES Final Result Performing Organization Address City/[facility] Co de Phone Number [facility] [address] [place] [address] documented in this encounter Visit Diagnoses Not on filedocumented in this encounter Additional Health Concerns Infection Onset Date Last Indicated Resolved Time COVID-19 03/22/2022 03/22/2022 04/11/2022 22:1 5 EDT documented as of this encounter
--- OUTSIDE RECORDS SUMMARY | 2025-01-06 15:40 | XMS_ITS | Encounter Summary ---
Author Organization [facility] Address [address] [place] [address] Care Team Providers Care Copy Coordinator Name Role Phone Roxanna Hannah MD Primary Care Provider + Encounter Details Date Type Department Care Team (Late st Contact Info) Description 03/21/2005 Results Only [facility] Family Medicine - [address] [phone] Roxanna Hannah MD [address] [place] [phone] Social History Tobacco Use Types Packs/Day Years [...] [facility] Comment: Desirable:<200 Borderline:200-239 High Risk:>[id number] Triglycerides 110 35 - 160 mg/dl [facility] HDL 33 mg/dl [facility] Comment: Highly Desirable:>60 Desirable:35-60 High Risk:<35 LDL, Calculated 132 mg/dl [facility] Comment: Desirable:<130 Borderline:130-159 High Risk:>pa=[id number] Chol/HDL Ratio 5.7 [facility] Fasting? Yes [facility] 03/21/2005 15:2 6 EDT 03/21/2005 18:43 EDT Roxanna Hannah MD CHEMISTRY & BLOOD GAS OR DERABLES Final Result Performing Organization Address [facility] de Phone Number [facility] [address] [place] [address] * LIVER FUNCTION TESTS (03/21/2005 15:26 EDT) Pathologist [facility] Albumin 4.1 3.4 - 4.9 g/dl [facility] [...] DERABLES Final Result Performing Organization Address [facility] Co de Phone Number [facility] [address] [place] [address] documented in this encounter Visit Diagnoses Not on filedocumented in this encounter Care Teams Copy Coordinator Relationship Specialty Start Date End Date Roxanna Hannah MD [address] [place] [phone] PCP - General 03/28/09 05/31/20 documented as of this encounter
--- OUTSIDE RECORDS SUMMARY | 2025-01-06 15:40 | XMS_ITS | Encounter Summary ---
Author Organization [facility] Address [address] [place] [address] Care Team Providers Care Buyer Liaison Name Role Phone Unavailable Primary Care Provider Unavailabl e Encounter Details Date Type Department Care Team (Late st Contact Info) Description 03/19/2007 12:45 EDT Hospital Encounter [facility] - [facility] conversion [address] [place] [address] Roxanna Hannah MD [address] [place] [phone] Social History Tobacco Use Types Packs/Day Years [...] learn more about your health please visit: https://www[facility].org/medcenter/Pages/Wellness-Resources/Awydiqvlx-Ajwons-Un sourc e-Center.aspx LDL < 100 Result Component Hyperlipidemia 56( 0 12:18 EST) No Maggie Andrade LPN HEMOGLOBIN A1C < 7.0 Result Component Type 2 diabetes mellitus ([facility]) 7.7(12/30/19 20 12:18 EST) No Maggie Andrade LPN documented as of this encounter Visit Diagnoses Not on filedocumented in this encounter Additional Health Concerns Infection Onset Date Last Indicated Resolved Time COVID-19 03/22/2022 03/22/2022 04/11/2022 22:1 5 EDT documented as of this encounter
--- OUTSIDE RECORDS SUMMARY | 2025-01-06 15:40 | XMS_ITS | Encounter Summary ---
Author Organization [facility] Address [address] [place] [address] Care Team Providers Care Machine Try Out Setter Name Role Phone Unavailable Primary Care Provider Unavailabl e Encounter Details Date Type Department Care Team (Late st Contact Info) Description 08/14/1999 0:29 EDT Hospital Encounter [facility] Department - [facility] [address] [place] [address] Emergency, MD Karyn Social History Tobacco Use [...] about your health please visit: https://www.[facility].org/medcenter/Pages/Wellness-Resources/Xmvbgajsj-Uzsrvh-Sb sourc e-Center.aspx LDL < 100 Result Component Hyperlipidemia 56( 0 12:18 EST) No Maggie Andrade LPN HEMOGLOBIN A1C < 7.0 Result Component Type 2 diabetes mellitus ([facility]) 7.7(12/30/19 20 12:18 EST) No Maggie Andrade LPN documented as of this encounter Visit Diagnoses Not on filedocumented in this encounter Additional Health Concerns Infection Onset Date Last Indicated Resolved Time COVID-19 03/22/2022 03/22/2022 04/11/2022 22:1 5 EDT documented as of this encounter
--- OUTSIDE RECORDS SUMMARY | 2025-01-06 15:40 | XMS_ITS | Encounter Summary ---
Author Organization [facility] Address [address] [place] [address] Care Team Providers Care Tourism Radio Presenter Name Role Phone Roxanna Hannah MD Primary Care Provider + Unknown, Provider Primary Care Provider Unava Roxanna Francis MD Primary Care Provider + Rebeca Garcia Primary Care Provider + Encounter Details Date Type Department Care Team (Late st Contact Info) Description 04/27/2007 Before PRISM Converted Visit (Maple) [facility] - Maple conversion [address] [place] [address] Edi Florian MD [address] [place] [address] [place] [phone] Social History Tobacco Use Types Packs/Day [...] documented as of this encounter Care Teams Tourism Radio Presenter Relationship Specialty Start Date End Date Roxanna Hannah MD [address] [place] [phone] PCP - General 03/28/09 05/31/20 Unknown, Provider, [address] [place] [phone] PCP - General 06/01/20 09/11/20 Roxanna Hannah MD [address] [place] [phone] PCP - General Family Medicine - Primary Care 09/12/20 12/08/20 Rebeca Garcia PA [address] [place] [phone] PCP - General 11/25/21 documented as of this encounter
--- OUTSIDE RECORDS SUMMARY | 2025-01-06 15:40 | XMS_ITS | Encounter Summary ---
Author Organization [facility] Address [address] [place] [address] Care Team Providers Care Senior Sql Server Dba Name Role Phone Unavailable Primary Care Provider Unavailabl e Encounter Details Date Type Department Care Team (Latest Contact Info) Description 10/24/2004 11:45 EST - 10/24/2004 11:[address] [facility] - Other [address] [place] [address] Roxanna Hannah MD [address] [place] [phone] Discharge Disposition: Auto Discharge Social History Tobacco [...]
--- OUTSIDE RECORDS SUMMARY | 2025-01-06 15:40 | XMS_ITS | Encounter Summary ---
Author Organization [facility] Address [address] [place] [address] Care Team Providers Care Tamale Machine Feeder Name Role Phone Roxanna Hannah MD Primary Care Provider + Encounter Details Date Type Department Care Team (Late st Contact Info) Description 10/24/2004 Results Only [facility] Family Medicine - [address] [id number] Roxanna Hannah MD [address] [place] [phone] Social History Tobacco Use Types Packs/Day Years [...] OR DERABLES Final Result Performing Organization Address [facility] de Phone Number [facility] [address] [place] [address] * LIPID PROFILE (INCLUDES CHOLESTEROL, TRIGLYCERIDES, HDL, LDL) (10/24/2004 9:14 EST) Cholesterol 203 mg/dl [facility] Comment: Desirable:<200 Borderline:200-239 High Risk:>gs=279 Triglycerides 120 35 - 160 mg/dl [facility] HDL 28 mg/dl [facility] Comment: Highly Desirable:>60 Desirable:35-60 High Risk:<35 LDL, Calculated 151 mg/dl [facility] Comment: Desirable:<130 Borderline:130-159 High Risk:>bv=689 Chol/HDL Ratio 7.3 [facility] 10/24/2004 9:14 EST 10/24/2004 11:23 EST Roxanna Hannah MD CHEMISTRY & BLOOD GAS OR DERABLES Final Result Performing Organization Address [facility] de Phone Number [facility] [address] [place] [address] * COMPREHENSIVE METABOLIC PANEL (10/24/2004 9:14 EST) [...] OR DERABLES Final Result Performing Organization Address [facility] Co de Phone Number [facility] [address] [place] [address] * HEMAGRAM (10/24/2004 9:14 EST) WBC 7.87 [...] ORDERAB LES Final Result Performing Organization Address City/[facility]/ZIP Co de Phone Number [facility] [address] [place] [address] documented in this encounter Visit Diagnoses Not on filedocumented in this encounter Care Teams Tamale Machine Feeder Relationship Specialty Start Date End Date Roxanna Hannah MD [address] [place] [phone] PCP - General 03/28/09 05/31/20 documented as of this encounter
--- OUTSIDE RECORDS SUMMARY | 2025-01-06 15:40 | XMS_ITS | Encounter Summary ---
Author Organization [facility] Address [address] [place] [address] Care Team Providers Care Skin Fitter Name Role Phone Unavailable Primary Care Provider Unavailabl e Encounter Details Date Type Department Care Team (Late st Contact Info) Description 03/25/2001 11:37 EDT - 03/25/2001 11:59 EDT Hospital Encounter [facility] - Other [address] [place] [address] [facility] [address] [place] [address] Unknown, Provider, Discharge Disposition: Auto Discharge Social [...] ORDERABLES Final Result [facility] [address] [place] [address] documented in this encounter Visit Diagnoses Not on filedocumented in this encounter
--- OUTSIDE RECORDS SUMMARY | 2025-01-06 15:40 | XMS_ITS | Encounter Summary ---
Author Organization [facility] Address [address] [place] [address] Care Team Providers Care Laundry Manager Name Role Phone Roxanna Hannah MD Primary Care Provider + Unknown, Provider Primary Care Provider Unava Roxanna Francis MD Primary Care Provider + Rebeca Garcia Primary Care Provider + Encounter Details Date Type Department Care Team (Late st Contact Info) Description 04/27/2007 Before PRISM Converted Visit (Maple) [facility] - Maple conversion [address] [place] [address] Edi Florian MD [address] [place] [address] [place] [phone] Social History Tobacco Use Types Packs/Day [...] documented as of this encounter Care Teams Laundry Manager Relationship Specialty Start Date End Date Roxanna Hannah MD [address] [place] [phone] PCP - General 03/28/09 05/31/20 Unknown, Provider, [address] [place] [phone] PCP - General 06/01/20 09/11/20 Roxanna Hannah MD [address] [place] [phone] PCP - General Family Medicine - Primary Care 09/12/20 12/08/20 Rebeca Garcia PA [address] [place] [phone] PCP - General 11/25/21 documented as of this encounter
--- OUTSIDE RECORDS SUMMARY | 2025-01-06 15:40 | XMS_ITS | Encounter Summary ---
Author Organization [facility] Address [address] [place] [address] Care Team Providers Care Straw Hat Brusher Name Role Phone Unavailable Primary Care Provider Unavailabl e Encounter Details Date Type Department Care Team (Late st Contact Info) Description 03/21/2005 15:37 EDT Hospital Encounter [facility] - Other [address] [place] [address] Romulo Calloway MD [address] [phone] Social History Tobacco Use Types Packs/Day Years [...] learn more about your health please visit: https://www.[facility].org/medcenter/Pages/Wellness-Resources/Erzpgbuig-Jzsoxk-Bm sourc e-Center.aspx LDL < 100 Result Component Hyperlipidemia 56( 0 12:18 EST) No Maggie Andrade LPN HEMOGLOBIN A1C < 7.0 Result Component Type 2 diabetes mellitus ([facility]) 7.7(12/30/19 20 12:18 EST) No Maggie Andrade LPN documented as of this encounter Visit Diagnoses Not on filedocumented in this encounter Additional Health Concerns Infection Onset Date Last Indicated Resolved Time COVID-19 03/22/2022 03/22/2022 04/11/2022 22:1 5 EDT documented as of this encounter
--- OUTSIDE RECORDS SUMMARY | 2025-01-06 15:40 | XMS_ITS | Encounter Summary ---
Author Organization [facility] Address [address] [place] [address] Care Team Providers Care Genetic Coordinator Name Role Phone Roxanna Hannah MD Primary Care Provider + Encounter Details Date Type Department Care Team (Late st Contact Info) Description 04/28/2007 Before PRISM Converted Visit (Maple) [facility] - Maple conversion [address] [place] [address] Edi Florian MD [address] [place] [address] [place] [phone] Social History Tobacco Use Types Packs/Day [...] 04/28/2007 April 28, 2007 Roxanna Hannah MD [address] [place] [address] DISCHARGE DIAGNOSIS Nonanginal chest pain. OTHER MEDICAL [...] Mr. Mario Curry, who was hospitalized at [facility] during the above dates. As you know, he is a very pleasant [employer] employee without prior cardiac problems. He does have two major risk factors; namely, hyperlipidemia and hypertension. Mr. Curry was at work at [employer] when he developed fairly abrupt right-sided chest discomfort. This then evolved into more of a central sternal chest heaviness. The medical team was notified andthe patient was brought by ambulance to [facility]. Mr. Bermudez examination was nonfocal. The presenting [...] MD Anival A - sb Job ID: [id number] Document ID: [id number] cc: MD Edi Sanders MD documented in this encounter Plan of Treatment Not on file documented as of this encounter Visit Diagnoses Not on filedocumented in this encounter Care Teams Genetic Coordinator Relationship Specialty Start Date End Date Roxanna Hannah MD [address] [place] [phone] PCP - General 03/28/09 05/31/20 documented as of this encounter
--- OUTSIDE RECORDS SUMMARY | 2025-01-06 15:40 | XMS_ITS | Encounter Summary ---
Author Organization [facility] Address [address] [place] [address] Care Team Providers Care Aquaculture Program Director Name Role Phone Unavailable Primary Care Provider Unavailabl e Encounter Details Date Type Department Care Team (Late st Contact Info) Description 11/11/2008 8:13 EST Hospital Encounter [facility] - Maple conversion [address] [place] [address] Delbert William MD [facility] [phone] Social History Tobacco Use Types Packs/Day Years [...] learn more about your health please visit: https://www.[facility].org/medcenter/Pages/Wellness-Resources/Wxlwvwman-Wsbmex-Qp sourc e-Center.aspx LDL < 100 Result Component Hyperlipidemia 56( 0 12:18 EST) No Maggie Andrade LPN HEMOGLOBIN A1C < 7.0 Result Component Type 2 diabetes mellitus ([facility]) 7.7(12/30/19 20 12:18 EST) No Maggie Andrade LPN documented as of this encounter Visit Diagnoses Not on filedocumented in this encounter Additional Health Concerns Infection Onset Date Last Indicated Resolved Time COVID-19 03/22/2022 03/22/2022 04/11/2022 22:1 5 EDT documented as of this encounter
--- OUTSIDE RECORDS SUMMARY | 2025-01-06 15:40 | XMS_ITS | Encounter Summary ---
Author Organization [facility] Address [address] [place] [address] Care Team Providers Care Auto Mechanics Teacher Name Role Phone Unavailable Primary Care Provider Unavailabl e Encounter Details Date Type Department Care Team (Late st Contact Info) Description 11/12/2008 9:14 EST Hospital Encounter [facility] - Maple conversion [address] [place] [address] Pradeep Valente MD Social History Tobacco Use [...] more about your health please visit: https://www.[facility].org/medcenter/Pages/Wellness-Resources/Duyfjskks-Ghxpvm-Wc sourc e-Center.aspx LDL < 100 Result Component Hyperlipidemia 56( 0 12:18 EST) No Maggie Andrade, ALE HEMOGLOBIN A1C < 7.0 Result Component Type 2 diabetes mellitus ([facility]) 7.7(12/30/19 20 12:18 EST) No Maggie Andrade, ALE documented as of this encounter Procedures Procedure Name Priority Date/Time Associated Diagnosis Comments LIPID PROFILE (INCLUDES CHOLESTEROL, TRIGLYCERIDES, HDL, LDL) Routine 11/12/2008 9:22 EST documented in this encounter Results * LIPID PROFILE (11/12/2008 9:22 EST) Cholesterol 154 mg/dl [facility] Comment: Desirable:<200 Borderline High:200-239 High:>ci=689 Triglycerides 112 35 - 160 mg/dl [facility] HDL 29 mg/dl [facility] Comment: Low:<40 High(Desirable):>or=60 LDL, Calculated 103 mg/dl [facility] Comment: Optimal:<100 Above optimal:100-129 Borderline High:130-159 High:160-189 Very High:>vn=771 Chol/HDL Ratio 5.3 [facility] Fasting? Yes [facility] 11/12/2008 9:22 EST 11/12/2008 13:27 EST Delbert William MD CHEMISTRY & BLOOD GAS ORDERA BLES Final Result [facility] [address] [place] [address] documented in this encounter Visit Diagnoses Not on filedocumented in this encounter Additional Health Concerns Infection Onset Date Last Indicated Resolved Time COVID-19 03/22/2022 03/22/2022 04/11/2022 22:1 5 EDT documented as of this encounter
--- OUTSIDE RECORDS SUMMARY | 2025-01-06 15:40 | XMS_ITS | Encounter Summary ---
Author Organization [facility] Address [address] [place] [address] Care Team Providers Care Amusement Park Entertainer Name Role Phone Roxanna Hannah MD Primary Care Provider + Encounter Details Date Type Department Care Team (Late st Contact Info) Description 04/27/2007 Results Only [facility] conversion [address] [place] [address] Emergency, MD Karyn Social History Tobacco Use [...] BLES Final Result [facility] [address] [place] [address] documented in this encounter Visit Diagnoses Not on filedocumented in this encounter Care Teams Amusement Park Entertainer Relationship Specialty Start Date End Date Roxanna Hannah MD [address] [place] [phone] PCP - General 03/28/09 05/31/20 documented as of this encounter
--- OUTSIDE RECORDS SUMMARY | 2025-01-06 15:40 | XMS_ITS | Encounter Summary ---
Author Organization [facility] Address [address] [place] [address] Care Team Providers Care Client Technologies Specialist Name Role Phone Unavailable Primary Care Provider Unavailabl e Encounter Details Date Type Department Care Team (Late st Contact Info) Description 03/19/2006 14:31 EDT Hospital Encounter [facility] - Maple conversion [address] [place] [address] Roxanna Hannah MD [address] [place] [phone] Social History Tobacco Use Types Packs/Day Years [...] learn more about your health please visit: https://www[facility].org/medcenter/Pages/Wellness-Resources/Sddsqxetl-Xtgfcf-Lc sourc e-Center.aspx LDL < 100 Result Component Hyperlipidemia 56( 0 12:18 EST) No Maggie Andrade LPN HEMOGLOBIN A1C < 7.0 Result Component Type 2 diabetes mellitus ([facility]) 7.7(12/30/19 20 12:18 EST) No Maggie Andrade LPN documented as of this encounter Visit Diagnoses Not on filedocumented in this encounter Additional Health Concerns Infection Onset Date Last Indicated Resolved Time COVID-19 03/22/2022 03/22/2022 04/11/2022 22:1 5 EDT documented as of this encounter
--- OUTSIDE RECORDS SUMMARY | 2025-01-06 15:40 | XMS_ITS | Encounter Summary ---
Author Organization [facility] Address [address] [place] [address] Care Team Providers Care Human Service Coordinator Name Role Phone Roxanna Hannah MD Primary Care Provider + Encounter Details Date Type Department Care Team (Late st Contact Info) Description 04/27/2007 Before PRISM Converted Visit (Maple) [facility] - Maple conversion [address] [place] [address] Edi Florian MD [address] [place] [address] [place] [phone] Social History Tobacco Use Types Packs/Day [...] DATE: 04/27/2007 This is the only recent [facility] hospitalization for Mr. Mario Curry, a verypleasant 51-year-old gentleman who is brought from [facility] with chest pain. PROBLEM LIST 1. Chest [...] health until today. He was working at [employer]. He reached into a [employer] bin for a tool kit and felt fairly abrupt severe right upper chest pain. This was nonpleuritic. It was not associated with diaphoresis. It did not radiate to the jaw or back. Symptoms lasted for three to five minutes. The patient relayed these symptoms to one of his coworkers. The medical unit from [facility] was summoned to the area, and the [...] The patient is . 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 He and his [...] MD Anival A - mt Job ID: [id number] Document ID: [id number] cc: MD Edi Sanders MD documented in this encounter Plan of Treatment Not on file documented as of this encounter Visit Diagnoses Not on filedocumented in this encounter Care Teams Human Service Coordinator Relationship Specialty Start Date End Date Roxanna Hannah MD [address] [place] [phone] PCP - General 03/28/09 05/31/20 documented as of this encounter
--- OUTSIDE RECORDS SUMMARY | 2025-01-06 15:40 | XMS_ITS | Encounter Summary ---
Author Organization [facility] Address [address] [place] [address] Care Team Providers Care Wrapper Off Name Role Phone Unavailable Primary Care Provider Unavailabl e Encounter Details Date Type Department Care Team (Late st Contact Info) Description 03/21/2007 9:[address] [facility] - Maple conversion [address] [place] [address] Roxanna Hannah MD [address] [place] [phone] Social History Tobacco Use Types Packs/Day Years [...] learn more about your health please visit: https://[facility].org/medcenter/Pages/Wellness-Resources/Ztgjtdoyn-Ejhgty-Kt sourc e-Center.aspx LDL < 100 Result Component Hyperlipidemia 56( 0 12:18 EST) No Maggie Andrade LPN HEMOGLOBIN A1C < 7.0 Result Component Type 2 diabetes mellitus ([facility]) 7.7(12/30/19 20 12:18 EST) No Maggie Andrade LPN documented as of this encounter Visit Diagnoses Not on filedocumented in this encounter Additional Health Concerns Infection Onset Date Last Indicated Resolved Time COVID-19 03/22/2022 03/22/2022 04/11/2022 22:1 5 EDT documented as of this encounter
--- OUTSIDE RECORDS SUMMARY | 2025-01-06 15:40 | XMS_ITS | Encounter Summary ---
Author Organization [facility] Address [address] [place] [address] Care Team Providers Care Senior Commissions Analyst Name Role Phone Unavailable Primary Care Provider Unavailabl e Encounter Details Date Type Department Care Team (Late st Contact Info) Description 04/15/2001 14:12 EDT Hospital Encounter [facility] - Other [address] [place] [address] Bozena Arias MD [address] [place] [address] Unknown, Provider, Discharge Disposition: Auto Discharge Social [...] & BLOOD GAS ORDERABLES Final Result [facility] [address] [address] documented in this encounter Visit Diagnoses Not on filedocumented in this encounter
--- OUTSIDE RECORDS SUMMARY | 2025-01-06 15:40 | XMS_ITS | Encounter Summary ---
Author Organization [facility] Address [address] [place] [address] Care Team Providers Care Visual Lead Name Role Phone Roxanna Hannah MD Primary Care Provider + Encounter Details Date Type Department Care Team (Late st Contact Info) Description 03/19/2006 Results Only [facility] Family Medicine - [address] [address] Roxanna Hannah MD [address] [place] [phone] Social History Tobacco Use Types Packs/Day Years [...] OR DERABLES Final Result Performing Organization Address [facility] Co de Phone Number [facility] [address] [place] [address] * THYROID CASCADE (03/19/2006 15:06 EDT) TSH 1.63 0.35 - 5.00 uIU/mL [facility] Comment: TSH cascade is not recommended for patients in which pituitary or hypothalamic disorders are suspected. 03/19/2006 15:0 6 EDT 03/19/2006 18:47 EDT Roxanna Hannah MD CHEMISTRY & BLOOD GAS OR DERABLES Final Result Performing Organization Address [facility] de Phone Number [facility] [address] [place] [address] * (ABNORMAL) PHOSPHORUS (03/19/2006 15:06 EDT) Phosphorus 2.3(L) 2.5 - 4.5 mg/dl [facility] 03/19/2006 15:0 6 EDT 03/19/2006 18:47 EDT Roxanna Hannah MD CHEMISTRY & BLOOD GAS OR DERABLES Final Result Performing Organization Address [facility] de Phone Number [facility] [address] [place] [address] * MAGNESIUM (03/19/2006 15:06 EDT) Magnesium 2.1 1.7 - 2.8 mg/dl [facility] 03/19/2006 15:0 6 EDT 03/19/2006 18:47 EDT Roxanna Hannah MD CHEMISTRY & BLOOD GAS OR DERABLES Final Result Performing Organization Address City/[facility] Co de Phone Number [facility] [address] [place] [address] * COMPREHENSIVE METABOLIC PANEL (03/19/2006 15:06 EDT) Potassium 4.6 3.5 - 5.0 mEq/L [facility] Sodium 141 136 - 145 mEq/L [facility] Chloride 103 96 - 110 mEq/L [facility] CO2 28 24 - 32 mEq/L [facility] Total Alkaline Phosphatase 70 38 [...] OR DERABLES Final Result Performing Organization Address [facility] Co de Phone Number [facility] [address] [place] [address] documented in this encounter Visit Diagnoses Not on filedocumented in this encounter Care Teams Visual Lead Relationship Specialty Start Date End Date Roxanna Hannah MD [address] [place] [phone] PCP - General 03/28/09 05/31/20 documented as of this encounter
--- OUTSIDE RECORDS SUMMARY | 2025-01-06 15:40 | XMS_ITS | Encounter Summary ---
Author Organization [facility] Address [address] [place] [address] Care Team Providers Care Ice Cream Man Name Role Phone Unavailable Primary Care Provider Unavailabl e Encounter Details Date Type Department Care Team (Late st Contact Info) Description 02/07/2001 22:14 EST Hospital Encounter [facility] - Other [address] [place] [address] Bozena Arias MD [address] [place] [phone] Unknown, Provider, Discharge Disposition: Auto Discharge Social [...] 8:30 EST 02/07/2001 20:46 EST us Bozena Arisa MD CHEMISTRY & BLOOD GAS ORDERABLES Final Result Performing Organization Address City/State/[facility] Co de Phone Number [facility] [address] [place] [address] documented in this encounter Visit Diagnoses Not on filedocumented in this encounter
--- OUTSIDE RECORDS SUMMARY | 2025-01-06 15:40 | XMS_ITS | Continuity of Care Document ---
Author Organization [facility] [place] Address [address] [place] [phone] Phone Care Team Providers Care Vfx Artist Name Role Phone Unavailable Unavailable Unavailable Procedures Procedure Date Intraor Complt (incl Bitewings 08 Comprehensive Oral Evaluation 8 Advance Directives Directive Yes / No Effective Date File Name No Information Encounters Encounter Description Practice Location Reason(s) For Visit Diagnoses Date Provider Providers Copied on Encounter [facility], [address] [place] [address], [place], [place], [id number], [place] tel:[phone] [facility] No Information No Information Family History Family Member Type Diagnosis Age At Onset No Information Payers Payer name Insurance type Covered green party ID Authoriza tion(s) D [employer] CI [id number] Social History Type Description Quantity Date Captured Comments Sex Male Smoking Status No Information Chief Complaint And Reason For Visit No Information Reason For Referral Reason For Referral No Information History Of Present Illness Encounter Date Complaint History Of Prese nt Illness No Information Functional Status Date Functional Assessmen t No Information Instructions Date Instruction Additional Infor mation No Information Assessments Type Assessment Date No Information Patient Care Teams Name Effective Dates (start - stop) Status Members No Information
--- OUTSIDE RECORDS SUMMARY | 2025-01-06 15:40 | XMS_ITS | Encounter Summary ---
Author Organization [facility] Address [address] [place] [address] Care Team Providers Care Retort Condenser Attendant Name Role Phone Unavailable Primary Care Provider Unavailabl e Encounter Details Date Type Department Care Team (Late st Contact Info) Description 11/12/2006 8:29 EST Hospital Encounter [facility] - Maple conversion [address] [place] [address] Roxanna Hannah MD [address] [place] [phone] Social History Tobacco Use Types Packs/Day Years [...] learn more about your health please visit: https://www.[facility].org/medcenter/Pages/Wellness-Resources/Kjhmmicth-Tqhylb-Pm sourc e-Center.aspx LDL < 100 Result Component Hyperlipidemia 56( 0 12:18 EST) No Maggie Andrade LPN HEMOGLOBIN A1C < 7.0 Result Component Type 2 diabetes mellitus ([facility]) 7.7(12/30/19 20 12:18 EST) No [...] [facility] Comment: Desirable:<200 Borderline:200-239 High Risk:>th=571 Triglycerides 92 35 - 160 mg/dl [facility] HDL 29 mg/dl [facility] Comment: Highly Desirable:>60 Desirable:35-60 High Risk:<35 LDL, Calculated 91 mg/dl [facility] Comment: Desirable:<130 Borderline:130-159 High Risk:>fm=218 Chol/HDL Ratio 4.8 [facility] Fasting? Yes [facility] 11/12/2006 9:22 EST 11/12/2006 11:39 EST Roxanna Hannah MD CHEMISTRY & BLOOD GAS OR DERABLES Final Result [facility] [address] [place] [address] * COMPREHENSIVE METABOLIC PANEL (11/12/2006 9:22 EST) [...] OR DERABLES Final Result Performing Organization Address City/[facility]/ZIP Co de Phone Number [facility] [address] [place] [address] * HEMAGRAM (11/12/2006 9:22 EST) WBC 6.56 [...] ORDERAB LES Final Result Performing Organization Address [facility] Co de Phone Number [facility] [address] [place] [address] documented in this encounter Visit Diagnoses Not on filedocumented in this encounter Additional Health Concerns Infection Onset Date Last Indicated Resolved Time COVID-19 03/22/2022 03/22/2022 04/11/2022 22:1 5 EDT documented as of this encounter
--- OUTSIDE RECORDS SUMMARY | 2025-01-06 15:40 | XMS_ITS | Encounter Summary ---
Author Organization [facility] Address [address] [place] [address] Care Team Providers Care Clinical Academic Allergist Name Role Phone Roxanna Hannah MD Primary Care Provider + Unknown, Provider Primary Care Provider Unava Roxanna Francis MD Primary Care Provider + Rebeca Garcia Primary Care Provider + Encounter Details Date Type Department Care Team (Late st Contact Info) Description 04/27/2007 Before PRISM Converted Visit (Maple) [facility] - Maple conversion [address] [place] [address] Edi Florian MD [address] [place] [address] [place] [phone] Social History Tobacco Use Types Packs/Day [...] documented as of this encounter Care Teams Clinical Academic Allergist Relationship Specialty Start Date End Date Roxanna Hannah MD [address] [place] [phone] PCP - General 03/28/09 05/31/20 Unknown, Provider, [address] [place] [phone] PCP - General 06/01/20 09/11/20 Roxanna Hannah MD [address] [place] [phone] PCP - General Family Medicine - Primary Care 09/12/20 12/08/20 Rebeca Garcia PA [address] [place] [phone] PCP - General 11/25/21 documented as of this encounter
--- OUTSIDE RECORDS SUMMARY | 2025-01-06 15:40 | XMS_ITS | Encounter Summary ---
Author Organization [facility] Address [address] [place] [address] Care Team Providers Care Wind Farm Designer Name Role Phone Unavailable Primary Care Provider Unavailabl e Encounter Details Date Type Department Care Team (Late st Contact Info) Description 01/27/2001 10:01 EST Hospital Encounter [facility] - Other [address] [place] [address] Aide Roy, PA-C Formerly [facility] [phone] Unknown, Provider, Social History Tobacco [...] learn more about your health please visit: https://www.[facility].org/medcenter/Pages/Wellness-Resources/Ytbktvnoc-Yrvhnz-Ak sourc e-Center.aspx LDL < 100 Result Component Hyperlipidemia 56( 0 12:18 EST) No Maggie Andrade LPN HEMOGLOBIN A1C < 7.0 Result Component Type 2 diabetes mellitus ([facility]) 7.7(12/30/19 20 12:18 EST) No [...] RDERABLES Final Result [facility] [address] [place] [address] documented in this encounter Visit Diagnoses Not on filedocumented in this encounter Additional Health Concerns Infection Onset Date Last Indicated Resolved Time COVID-19 03/22/2022 03/22/2022 04/11/2022 22:1 5 EDT documented as of this encounter
--- OUTSIDE RECORDS SUMMARY | 2025-01-06 15:40 | XMS_ITS | Encounter Summary ---
Author Organization [facility] Address [address] [place] [address] Care Team Providers Care Mine Production Engineer Name Role Phone Unavailable Primary Care Provider Unavailabl e Encounter Details Date Type Department Care Team (Late st Contact Info) Description 03/12/2006 9:07 EDT Hospital Encounter [facility] [address] [place] [address] Roxanna Hannah MD [address] [place] [phone] Social History Tobacco Use Types Packs/Day Years [...] your health please visit: https://www.[facility].org/medcenter/Pages/Wellness-Resources/Jycdyzexo-Qcjuar-Ru sourc e-Center.aspx LDL < 100 Result Component Hyperlipidemia 56( 0 12:18 EST) No Maggie Andrade LPN HEMOGLOBIN A1C < 7.0 Result Component Type 2 diabetes mellitus ([facility]) 7.7(12/30/19 20 12:18 EST) No Maggie Andrade [...] OR DERABLES Final Result Performing Organization Address [facility] Co de Phone Number [facility] [address] [place] [address] * (ABNORMAL) LIPID PROFILE (INCLUDES CHOLESTEROL, TRIGLYCERIDES, HDL, LDL) (03/12/2006 9:18 EDT) Cholesterol 206 mg/dl [facility] Comment: Desirable:<200 Borderline:200-239 High Risk:>gw=413 Triglycerides 179(H) 35 - 160 mg/dl [facility] HDL 27 mg/dl [facility] Comment: Highly Desirable:>60 Desirable:35-60 High Risk:<35 LDL, Calculated 143 mg/dl [facility] Comment: Desirable:<130 Borderline:130-159 High Risk:>wr=488 Chol/HDL Ratio 7.6 [facility] Fasting? Yes Performed at [facility], [place], [place] [facility] 03/12/2006 9:18 EDT 03/12/2006 9:20 EDT us Roxanna Hannah MD CHEMISTRY & BLOOD GAS OR DERABLES Final Result Performing Organization Address [facility] de Phone Number [facility] [address] [place] [address] * COMPREHENSIVE METABOLIC PANEL (03/12/2006 9:18 EDT) [...] [facility] Fasting? Yes Performed at [facility], [place], [place] [facility] Albumin/Globulin Ratio 1.3 [facility] 03/12/2006 9:18 EDT 03/12/2006 9:20 EDT us Roxanna Hannah MD CHEMISTRY & BLOOD GAS OR DERABLES Final Result [facility] [address] [place] [address] documented in this encounter Visit Diagnoses Not on filedocumented in this encounter Additional Health Concerns Infection Onset Date Last Indicated Resolved Time COVID-19 03/22/2022 03/22/2022 04/11/2022 22:1 5 EDT documented as of this encounter
--- OUTSIDE RECORDS SUMMARY | 2025-01-06 15:40 | XMS_ITS | Encounter Summary ---
Author Organization [facility] Address [address] [place] [address] Care Team Providers Care Cyanide Case Hardener Name Role Phone Roxanna Hannah MD Primary Care Provider + Encounter Details Date Type Department Care Team (Late st Contact Info) Description 03/21/2007 Results Only [facility] Family Medicine - [address] [address] Roxanna Hannah MD [address] [place] [phone] Social History Tobacco Use Types Packs/Day Years [...] [facility] Comment: Desirable:<200 Borderline:200-239 High Risk:>sd=482 Triglycerides 105 35 - 160 mg/dl [facility] HDL 24 mg/dl [facility] Comment: Highly Desirable:>60 Desirable:35-60 High Risk:<35 LDL, Calculated 69 mg/dl [facility] Comment: Desirable:<130 Borderline:130-159 High Risk:>vg=431 Chol/HDL Ratio 4.8 [facility] Fasting? Yes [facility] 03/21/2007 10:0 0 EDT 03/21/2007 13:29 EDT Roxanna Hannah MD CHEMISTRY & BLOOD GAS OR DERABLES Final Result Performing Organization Address [facility] de Phone Number [facility] [address] [place] [address] * LIVER FUNCTION TESTS (03/21/2007 10:00 EDT) Pathologist [facility] Albumin 4.2 3.4 - 4.9 g/dl [facility] [...] OR DERABLES Final Result Performing Organization Address [facility] Co de Phone Number [facility] [address] [place] [address] documented in this encounter Visit Diagnoses Not on filedocumented in this encounter Care Teams Cyanide Case Hardener Relationship Specialty Start Date End Date oRxanna Hannah MD [address] [place] [phone] PCP - General 03/28/09 05/31/20 documented as of this encounter
--- OUTSIDE RECORDS SUMMARY | 2025-01-06 15:40 | XMS_ITS | Encounter Summary ---
Author Organization [facility] Address [address] [place] [address] Care Team Providers Care Turn Machine Operator Name Role Phone Unavailable Primary Care Provider Unavailabl e Encounter Details Date Type Department Care Team (Latest Contact Info) Description 01/09/2000 15:56 EST Hospital Encounter [facility] - Other [address] [place] [address] Jacklyn Cleaning MD [address] [address] Unknown, Provider, Discharge Disposition: Auto Discharge Social [...] [facility] Comment: Desirable:<200 Borderline:200-239 High Risk:>fm=108 Fasting Triglycerides 82 35 - 160 mg/dl [facility] Comment:Fasting HDL 32 mg/dl [facility] Comment: Highly Desirable:>60 Desirable:35-60 High Risk:<35 Fasting LDL, Calculated 134 mg/dl [facility] Comment: Desirable:<130 Borderline:130-159 High Risk:>ov=614 Fasting Chol/HDL Ratio 5.7 Fasting [facility] 01/09/2000 10:0 0 EST 01/09/2000 19:41 EST us Jacklyn Cleaning MD CHEMISTRY & BLOOD GAS ORDERABLES Final Result [facility] [address] [place] [address] documented in this encounter Visit Diagnoses Not on filedocumented in this encounter
--- OUTSIDE RECORDS SUMMARY | 2025-01-06 15:40 | XMS_ITS | Encounter Summary ---
Author Organization [facility] Address [address] [place] [address] Care Team Providers Care Hydration Plant Operator Name Role Phone Unavailable Primary Care Provider Unavailabl e Encounter Details Date Type Department Care Team (Late st Contact Info) Description 06/09/2007 13:03 EDT Hospital Encounter [facility] - Maple conversion [address] [place] [address] Roxanna Hannah MD [address] [place] [phone] Social History Tobacco Use Types Packs/Day Years [...] learn more about your health please visit: https://www.[facility].org/medcenter/Pages/Wellness-Resources/Mqpyzfpyj-Cpgrmb-Zd sourc e-Center.aspx LDL < 100 Result Component Hyperlipidemia 56( 0 12:18 EST) No Maggie Andrade LPN HEMOGLOBIN A1C < 7.0 Result Component Type 2 diabetes mellitus ([facility]) 7.7(12/30/19 20 12:18 EST) No Maggie Andrade LPN documented as of this encounter Visit Diagnoses Not on filedocumented in this encounter Additional Health Concerns Infection Onset Date Last Indicated Resolved Time COVID-19 03/22/2022 03/22/2022 04/11/2022 22:1 5 EDT documented as of this encounter
--- OUTSIDE RECORDS SUMMARY | 2025-01-06 15:40 | XMS_ITS | Encounter Summary ---
Author Organization [facility] Address [address] [place] [address] Care Team Providers Care Dean Of Boys Name Role Phone Unavailable Primary Care Provider Unavailabl e Encounter Details Date Type Department Care Team (Latest Contact Info) Description 12/29/2001 20:42 EST Hospital Encounter [facility] - Other [address] [place] [address] Nelda Lewis MD [address] [address] Unknown, Provider, Discharge Disposition: Auto Discharge Social [...] GAS ORDERABLES Final Result Performing Organization Address [facility] de Phone Number [facility] [address] [place] [address] * LIPID PROFILE (INCLUDES CHOLESTEROL, TRIGLYCERIDES, HDL, LDL) (12/29/2001 20:42 EST) Cholesterol 197 mg/dl [facility] Comment: Desirable:<200 Borderline:200-239 High Risk:>ut=816 Triglycerides 137 35 - 160 mg/dl [facility] HDL 24 mg/dl [facility] Comment: Highly Desirable:>60 Desirable:35-60 High Risk:<35 LDL, Calculated 146 mg/dl [facility] Comment: Desirable:<130 Borderline:130-159 High Risk:>bk=356 Chol/HDL Ratio 8.2 [facility] 12/29/2001 20:4 2 EST 12/29/2001 20:42 EST Nelda Lewis MD CHEMISTRY & BLOOD GAS ORDERABLES Final Result Performing Organization Address [facility] de Phone Number [facility] [address] [place] [address] * GLUCOSE, PLASMA (12/29/2001 20:42 EST) Glucose, Plasma 85 70 - 110 mg/dl [facility] 12/29/2001 20:4 2 EST 12/29/2001 20:42 EST Nelda Lewis MD CHEMISTRY & BLOOD GAS ORDERABLES Final Result Performing Organization Address [facility] Co de Phone Number [facility] [address] [place] [address] documented in this encounter Visit Diagnoses Not on filedocumented in this encounter
--- OUTSIDE RECORDS SUMMARY | 2025-01-06 15:40 | XMS_ITS | Encounter Summary ---
Author Organization [facility] Address [address] [place] [address] Care Team Providers Care Brush Hand Name Role Phone Yanira Hannah MD Primary Care Provider + Unknown, Provider Primary Care Provider Unava ilYanira Bourne MD Primary Care Provider + Rebeca Garcia Primary Care Provider + Encounter Details Date Type Department Care Team (Late st Contact Info) Description 04/27/2007 Before PRISM Converted Visit (Maple) [facility] - Maple conversion [address] [place] [address] Edi Florian MD [address] [place] [address] [place] [phone] Social History Tobacco Use Types Packs/Day [...] 7:25 EDT Narrative 04/30/2007 9:57 EDT ? [facility] ? [address] ??[place] [address] ?[phone] ?Final ECG Stress Test Report ?--- PATIENT PRESENTATION --- : 1955 ? Age: 51 ?Sex: male ? Height: 69 in ??Weight: 235 lb BSA: 2.21 Pt Type: IP History: ??51 yo male No known Hx CAD. ??Admitted 04/27/07 with SSCP while lifting 10lbs.relieved with rest. R/O'd out for DC. Denies pain at this time. Medications: ASA, HCTZ, Lipid lowering agents Cardiovascular Risk Factors: ??Hypercholesterolemia, Hypertension, Obesity Reason for Study: Atypical Chest Pain Referring Physician: EDI FLORIAN MD ??FAX: [phone] ? --- CONCLUSION --- > Normal ECG Stress Test ? --- STRESS ELECTROCARDIOGRAPHY --- BASELINE ECG: T wave Abnormal Supine HR: ? 64 ? Supine BP: ??124 / 84 ??Upright HR: ?79 Upright BP: ?126 / 80 STRESS TEST Stress Protocol: Sx Limited Scotty Peak HR: ??151 ? Peak BP: ?184 / 80 ?MPHR: ??89% Peak Rate-Pressure Product: [id number] Total Exercise Time: 9.2 min ? Final [...] Interpretation By: ??Romulo Brumfield MD - Attending Ground Surveillance Systems Operator Finalized on: 04/30/2007 9:57:36 AM Copy Report To: ? NICK DANIELLE,YANIRA Fontaine ?? FAX: [phone] Procedure Note 05/10/2010 [facility] [address] [place] [address] Final ECG Stress Test Report --- PATIENT PRESENTATION --- : 1955 Age: 51 Sex: male Height: 69 in Weight: 235lb BSA: 2.21 Pt Type: IP History: 51 yo male No known Hx CAD. Admitted 04/27/07 with SSCP whilelifting 10lbs.relieved with rest. R/O'd out for DC. Denies pain at this time. Medications: ASA, HCTZ, Lipid lowering agents Cardiovascular Risk Factors: Hypercholesterolemia, Hypertension,Obesity Reason for Study: Atypical Chest Pain Referring Physician: EDI FLORIAN MD FAX: [phone] --- CONCLUSION --- > Normal ECG Stress Test --- STRESS ELECTROCARDIOGRAPHY --- BASELINE ECG: T wave Abnormal Supine HR: 64 Supine BP: 124 / 84 Upright HR: 79 Upright BP: 126 / 80 STRESS TEST Stress Protocol: Sx Limited Scotty Peak HR: 151 Peak BP: 184 / 80 MPHR: 89% Peak Rate-Pressure Product: [id number] Total Exercise Time: 9.2 min Final Stage: [...] Interpretation By: Romulo Brumfield MD - Attending Ground Surveillance Systems Operator Finalized on: 04/30/2007 9:57:36 AM Copy Report To: NICK DANIELLE,YANIRA Fontaine FAX: [phone] [facility] Provider [id number] CARDIAC SERVICE S ORDERABLES Final Result * TSH (04/28/2007 3:00 EDT) Pathologist [facility] TSH 3.39 0.35 - 5.00 uIU/mL [facility] 04/28/2007 3:00 EDT 04/28/2007 3:20 EDT Edi Florian MD CHEMISTRY & BLOOD GAS ORDERABLES Final Result Performing Organization Address [facility] de Phone Number [facility] [address] [place] [address] * TROPONIN I (04/28/2007 3:00 EDT) [facility] Troponin I pre 2012 <0.05 ng/ml [facility] Comment: Note new reference range. Reference Range: Normal: ??Less than 0.05 Indeterminate: ??0.05-0.80 Positive: ??Greater than 0.80 04/28/2007 3:00 EDT 04/28/2007 3:20 EDT Edi Florian MD CHEMISTRY & BLOOD GAS ORDERABLES Final Result Performing Organization Address [facility] de Phone Number [facility] [address] [place] [address] * LIPID PROFILE (INCLUDES CHOLESTEROL, TRIGLYCERIDES, HDL, LDL) (04/28/2007 3:00 EDT) Pathologist [facility] Cholesterol 127 mg/dl [facility] Comment: Desirable:<200 Borderline:200-239 High Risk:>za=738 Triglycerides 107 35 - 160 mg/dl [facility] HDL 28 mg/dl [facility] Comment: Highly Desirable:>60 Desirable:35-60 High Risk:<35 LDL, Calculated 78 mg/dl [facility] Comment: Desirable:<130 Borderline:130-159 High Risk:>cr=786 Chol/HDL Ratio 4.5 [facility] Fasting? Unknown [facility] 04/28/2007 3:00 EDT 04/28/2007 3:20 EDT Edi Florian MD CHEMISTRY & BLOOD GAS ORDERABLES Final Result Performing Organization Address [facility] de Phone Number [facility] [address] [place] [address] * CK MB WITH TOTAL CK (04/28/2007 3:00 EDT) CK 152 0 - 250 U/L [facility] MB 0.9 0 - 5.0 ng/ml [facility] CK-MB Index Not calculated , normal MB. 0 - 2.5 [facility] 04/28/2007 3:00 EDT 04/28/2007 3:20 EDT Edi Florian MD CHEMISTRY & BLOOD GAS ORDERABLES Final Result Performing Organization Address [facility] de Phone Number [facility] [address] [place] [address] documented in this encounter Visit Diagnoses Not on filedocumented in this encounter Additional Health Concerns Infection Onset Date Last Indicated Resolved Time COVID-19 03/22/2022 03/22/2022 04/11/2022 22:1 5 EDT documented as of this encounter Care Teams Brush Hand Relationship Specialty Start Date End Date Yanira Hannah MD [address] [place] [phone] PCP - General 03/28/09 05/31/20 Unknown, MD Per [address] [place] [phone] PCP - General 06/01/20 09/11/20 Yanria Hannah MD [address] [place] [phone] PCP - General Family Medicine - Primary Care 09/12/20 12/08/20 Rebeca Garcia PA [address] [place] [phone] PCP - General 11/25/21 documented as of this encounter
--- OUTSIDE RECORDS SUMMARY | 2025-01-06 15:40 | XMS_ITS | Encounter Summary ---
Author Organization [facility] Address [address] [place] [address] Care Team Providers Care Director Funeral Name Role Phone Unavailable Primary Care Provider Unavailabl e Encounter Details Date Type Department Care Team (Late st Contact Info) Description 02/26/2006 14:26 EDT Hospital Encounter [facility] - Maple conversion [address] [place] [address] Roxanna Hannah MD [address] [place] [phone] Social History Tobacco Use Types Packs/Day Years [...] about your health please visit: https://www.[facility].org/medcenter/Pages/Wellness-Resources/Bxqyejdcy-Anllcp-On sourc e-Center.aspx LDL < 100 Result Component Hyperlipidemia 56( 0 12:18 EST) No Maggie Andrade LPN HEMOGLOBIN A1C < 7.0 Result Component Type 2 diabetes mellitus ([facility]) 7.7(12/30/19 20 12:18 EST) No Maggie Andrade LPN documented as of this encounter Visit Diagnoses Not on filedocumented in this encounter Additional Health Concerns Infection Onset Date Last Indicated Resolved Time COVID-19 03/22/2022 03/22/2022 04/11/2022 22:1 5 EDT documented as of this encounter
--- OUTSIDE RECORDS SUMMARY | 2025-01-06 15:40 | XMS_ITS | Encounter Summary ---
Author Organization [facility] Address [address] [place] [address] Care Team Providers Care Billiard Player Name Role Phone Unavailable Primary Care Provider Unavailabl e Encounter Details Date Type Department Care Team (Late st Contact Info) Description 09/11/2006 11:11 EDT Hospital Encounter [facility] - Maple conversion [address] [place] [address] Roxanna Hannah MD [address] [place] [phone] Social History Tobacco Use Types Packs/Day Years [...] about your health please visit: https://[facility].org/medcenter/Pages/Wellness-Resources/Fetspennt-Zsdsjj-Ex sourc e-Center.aspx LDL < 100 Result Component Hyperlipidemia 56( 0 12:18 EST) No Maggie Andrade LPN HEMOGLOBIN A1C < 7.0 Result Component Type 2 diabetes mellitus ([facility]) 7.7(12/30/19 20 12:18 EST) No Maggie Andrade LPN documented as of this encounter Visit Diagnoses Not on filedocumented in this encounter Additional Health Concerns Infection Onset Date Last Indicated Resolved Time COVID-19 03/22/2022 03/22/2022 04/11/2022 22:1 5 EDT documented as of this encounter
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
--- OUTSIDE RECORDS SUMMARY | 2025-01-06 15:40 | XMS_ITS | Encounter Summary ---
Author Organization [facility] Address [address] [place] [address] Care Team Providers Care Safety Sitter Name Role Phone Unavailable Primary Care Provider Unavailabl e Encounter Details Date Type Department Care Team (Latest Contact Info) Description 01/18/2001 12:05 EST Hospital Encounter [facility] Emergency Department - [facility] [address] [place] [address] Emergency, Default, MD Discharge Disposition: Home or [...] TSERING Final Result [facility] [address] [place] [address] documented in this encounter Visit Diagnoses Not on filedocumented in this encounter
[2025-01-06 20:38] LABS: TSH (W/Ref FT4) 1.76 uIU/mL (0.36-3.74)
== END 2025-01-06 15:30 | disposition home or self-care (01) ==
LOC: NCHCN 15:29
PROVIDERS: PCP Physician Assistant; Visit Provider Physician Assistant
DX: E03.9 Hypothyroidism, unspecified (principal)
CPT/HCPCS: 84443

== ENCOUNTER 2025-05-05 22:16 | Outpatient (REF) | payer MEDICARE, SELFPAY ==
[2025-05-05 21:17] LABS: Abs Immature Grans 0.06 10^3/uL (0.0-0.06); Absolute Basophil Count 0.04 10^3/uL (0.0-0.2); Absolute Eosinophil Count 0.05 10^3/uL (0.0-0.7); Absolute Lymphocyte Count 2.67 10^3/uL (1.2-3.4); Absolute Monocyte Count 0.41 10^3/uL (0.1-0.8); Absolute Neutrophil Count 3.24 10^3/uL (1.2-6.7); Basophils % 0.6 %; Eosinophils % 0.8 %; HCT 51.3 % (40.0-50.0); HGB 17.1 g/dL (13.5-17.5); Immature Grans % 0.9 %; Lymphocytes % 41.3 %; MCH 31.7 pg (27.0-33.0); MCHC 33.3 % (32.0-36.0); MCV 95 fL (80-95); MPV 11.7 fL (8.0-11.0); Monocytes % 6.3 %; Neutrophils % 50.1 %; Platelet Count 160 10^3/uL (130-400); RDW 13.9 % (11.8-14.1); RDW-SD 48.8 fL; WBC 6.47 10^3/uL (4.4-10.8)
[2025-05-05 21:31] LABS: ALT 37 U/L (16-63); AST 24 U/L (15-37); Alkaline Phosphatase 68 U/L (46-116); Amylase 46 U/L (25-115); Anion Gap 8.5 mmol/L (3-11); BUN 23 mg/dL (7-18); Bilirubin, Total 0.7 mg/dL (0.2-1.0); CO2 30.5 mmol/L (21.0-32.0); CREATININE 0.9 mg/dL (0.70-1.30); Calcium 9.5 mg/dL (8.5-10.1); Chloride 106 mmol/L (98-107); Estimated GFR 93.03 (mL/min/1.73m2); Glucose 161 mg/dL (74-106); Lipase 45 U/L (<78); Potassium 4.6 mmol/L (3.5-5.1); Sodium 145 mmol/L (136-145); Total Protein 7.2 g/dL (6.4-8.2)
== END 2025-05-05 22:17 | disposition home or self-care (01) ==
LOC: NCHCN 22:16
PROVIDERS: PCP Physician Assistant; Visit Provider Physician Assistant
DX: R10.84 Generalized abdominal pain (principal)
CPT/HCPCS: 80053; 83690; 82150; 85025

== ENCOUNTER 2025-05-27 02:01 | Outpatient (CLI) | payer MEDICARE, SELFPAY ==
--- NOTE | 2025-05-27 | DI.RAD_ITS ---
Exam(s) XR SHOULDER LT COMPLETE 2+V EXAM: XR SHOULDER LT COMPLETE 2+V CLINICAL HISTORY: L SHOULDER PAIN, UNSPECIFIED CHRONICITY, M25.512. TECHNIQUE: 2D digital imaging was performed. Three views. COMPARISON: CR XR CHEST 2V PA LATERAL from 12/15/2020 FINDINGS: BONES: No acute fracture is present. No bony destructive lesion is seen. JOINTS: No dislocation present. There is normal alignment of the glenohumeral joint prosthesis. There are no abnormal surrounding lucencies. The AC joint is unremarkable. SOFT TISSUE: Normal. IMPRESSION: Unremarkable glenohumeral joint prosthesis. DATA REPOSITORY: RADIATION DOSE DELIVERED:
== END 2025-05-27 02:21 ==
LOC: DI 02:02
PROVIDERS: PCP Physician Assistant; Visit Provider Physician Assistant
DX: M25.512 Pain in left shoulder (principal)
CPT/HCPCS: 73030